=== PATIENT | female | born 1940 | race Caucasian/White ===

== ENCOUNTER → 2017-04-06 12:25 | Outpatient (CLI) | payer MEDICARE, SELFPAY ==
[2017-04-06 14:10] LABS: Alanine Aminotransferase 25 U/L (12-78); Albumin Level 3.9 gm/dL (3.4-5.0); Albumin/Globulin Ratio 1.6 (1.1-1.8); Alkaline Phosphatase 106 U/L (46-116); Anion Gap 10.9 mEq/L (5-15); Aspartate Amino Transferase 16 U/L (15-37); Bilirubin,Total 0.3 mg/dL (0.2-1.0); Blood Urea Nitrogen 15 mg/dL (7-18); Calcium 9.2 mg/dL (8.5-10.1); Carbon Dioxide 31 mmol/L (21.0-32.0); Chloride 105 mmol/L (98-107); Chol/HDL Ratio 2.8 (1-3.5); Cholesterol 138 mg/dL (140-200); Estimated Glomerular Filt Rate 70 ml/min (>60); Free Thyroxine Index 1.7 ug/dL (5.93-13.13); GFR (African American) 85 ML/MIN (>60); Globulin 2.5 gm/dl (1.3-3.2); Glucose 75 mg/dL (74-106); HDL Cholesterol 49 mg/dL (29-89); LDL Cholesterol 74 mg/dL (0-130); Potassium 4.9 mmoL/L (3.5-5.1); Sodium 142 mmol/L (136-145); T4 (Thyroxine) 4.7 ug/dl (4.7-13.3); Thyroid Stimulating Hormone 0.06 uIU/ml (0.358-3.740); Total Protein,Serum 6.4 gm/dL (6.4-8.2); Triglycerides 76 mg/dL (30-200); Triiodothryronine (T3) Uptake 36 % (31-39); VLDL Cholesterol 15 mg/dL (0-40)
[2017-04-06 14:59] LABS: Basophils # 0.1 K/mm3 (0-0.2); Basophils % 0.9 % (0.1-2.0); Eosinophils # 0.3 K/mm3 (0.0-0.4); Eosinophils % 5.9 % (0.1-12.0); Hematocrit 38.9 % (37.0-47.0); Hemoglobin 12.3 g/dL (12.2-16.2); Lymphocytes # 2.7 K/mm3 (0.7-4.5); Lymphocytes % 50.7 K/mm3 (10-50); Mean Corpuscular HGB Conc 31.7 g/dL (31.8-35.4); Mean Corpuscular Hemoglobin 31.2 pg (27.0-31.2); Mean Corpuscular Volume 98.3 fl (81-99); Mean Platelet Volume 8.5 fl (7.4-10.4); Monocytes # 0.4 K/mm3 (0.1-1.0); Monocytes % 6.9 % (1.7-9.3); Neutrophils # 1.9 K/mm3 (1.8-7.8); Neutrophils % 35.6 % (37.0-80.0); Platelet Count 205 K/mm3 (142-424); Red Blood Count 3.96 M/mm3 (4.20-5.40); Red Cell Distribution Width 12.1 % (11.5-17.5); White Blood Count 5.4 K/mm3 (4.8-10.8)
[2017-04-06 15:43] LABS: MANUAL DIFFERENTIAL MANUAL DIFFERENTIAL (MANUAL DIFF)
[2017-04-06 17:14] LABS: Eosinophils % 5 % (0-3); Lymphocytes % 46 % (10-50); Monocytes % 13 % (2-9); Neutrophils % 35 % (42-76); Platelet Estimate Normal; RBC Morphology Normal; Total Cells Counted 100
== END ==
PROVIDERS: PCP Internal Medicine Adolescent Medicine; Visit Provider Internal Medicine Adolescent Medicine
DX: E78.5 Hyperlipidemia, unspecified (principal); E05.90 Thyrotoxicosis, unspecified without thyrotoxic crisis or storm; E04.2 Nontoxic multinodular goiter
CPT/HCPCS: 36415; 80053; 80061; 84436; 84443; 84479; 85007; 85025

== ENCOUNTER → 2017-10-15 08:48 | Outpatient (CLI) | payer MEDICARE, SELFPAY ==
--- NOTE | 2017-10-15 08:50 | NM_ITS ---
NM bone scan whole body CLINICAL INDICATION: Evaluate for Padget disease ITS.REASON: FRONTAL BOSSING ORDERING PHYSICIAN: Hawk Davis MD PATIENT AGE: 77 years DOSE: 25.3 mCi technetium MDP FINDINGS: There is slight increase activity in the upper thoracic spine at the T3 level and in the midthoracic spine 8 level. Increased activity also noted on the right at L3 and L4 and also in the ankles.. Focal increased activity involves the left first metatarsophalangeal joint. No abnormal activity in the skull or pelvis. IMPRESSION: 1. Nonspecific spine activity which could be degenerative. Plain films may be of further value clinically warranted. 2. No abnormal skull or pelvic activity. No findings that would indicate Padget disease.
--- NOTE | 2017-10-15 13:07 | XR_ITS ---
XR skull <4V CLINICAL INDICATION: ITS.REASON: KNOT ON FRONTAL SKULL, HEADACHES, BONE SCAN ALSO TODAY ORDERING PHYSICIAN: Hawk Davis MD PATIENT AGE: 77 years Comparison: None FINDINGS: Normal mineralization. No lytic or blastic lesions. No calcified soft tissue nodules IMPRESSION: Negative skull
== END ==
PROVIDERS: PCP Internal Medicine Adolescent Medicine; Visit Provider Internal Medicine Adolescent Medicine
DX: Q75.8 Other specified congenital malformations of skull and face bones (principal)
CPT/HCPCS: 70250; 78306; A9503

== ENCOUNTER → 2017-10-31 12:13 | Outpatient (CLI) | payer MEDICARE, SELFPAY ==
[2017-10-31 13:17] LABS: Anion Gap 15.1 mEq/L (5-15); Blood Urea Nitrogen 21 mg/dL (7-18); Calcium 8.7 mg/dL (8.5-10.1); Carbon Dioxide 29 mmol/L (21.0-32.0); Chloride 101 mmol/L (98-107); Creatinine,Serum 0.84 mg/dL (0.55-1.02); Estimated Glomerular Filt Rate 66 ml/min (>60); Free Thyroxine Index 1.5 ug/dL (5.93-13.13); GFR (African American) 80 ML/MIN (>60); Glucose 100 mg/dL (74-106); Potassium 4.1 mmoL/L (3.5-5.1); Sodium 141 mmol/L (136-145); T4 (Thyroxine) 4.5 ug/dl (4.7-13.3); Thyroid Stimulating Hormone 0.55 uIU/ml (0.358-3.740); Triiodothryronine (T3) Uptake 33 % (31-39)
== END ==
PROVIDERS: Visit Provider Internal Medicine Adolescent Medicine
DX: E05.90 Thyrotoxicosis, unspecified without thyrotoxic crisis or storm (principal)
CPT/HCPCS: 36415; 80048; 84436; 84443; 84479

== ENCOUNTER → 2017-11-30 09:44 | Outpatient (CLI) | payer MEDICARE, SELFPAY ==
[2017-11-30 10:38] LABS: Basophils % 0.7 % (0.1-2.0); Eosinophils # 0.2 K/mm3 (0.0-0.4); Eosinophils % 3.6 % (0.1-12.0); Hematocrit 37.2 % (37.0-47.0); Hemoglobin 11.7 g/dL (12.2-16.2); Lymphocytes % 41.5 K/mm3 (10-50); Mean Corpuscular HGB Conc 31.5 g/dL (31.8-35.4); Mean Corpuscular Volume 95.4 fl (81-99); Mean Platelet Volume 7.4 fl (7.4-10.4); Monocytes # 0.3 K/mm3 (0.1-1.0); Neutrophils # 2.3 K/mm3 (1.8-7.8); Neutrophils % 47.2 % (37.0-80.0); Platelet Count 309 K/mm3 (142-424); Red Cell Distribution Width 13.4 % (11.5-17.5); White Blood Count 4.9 K/mm3 (4.8-10.8)
[2017-11-30 11:29] LABS: Alanine Aminotransferase 24 U/L (12-78); Albumin Level 3.7 gm/dL (3.4-5.0); Albumin/Globulin Ratio 1.2 (1.1-1.8); Alkaline Phosphatase 104 U/L (46-116); Anion Gap 10.6 mEq/L (5-15); Aspartate Amino Transferase 12 U/L (15-37); Bilirubin,Total 0.2 mg/dL (0.2-1.0); Blood Urea Nitrogen 22 mg/dL (7-18); Calcium 8.7 mg/dL (8.5-10.1); Carbon Dioxide 31 mmol/L (21.0-32.0); Chloride 107 mmol/L (98-107); Chol/HDL Ratio 4.4 (1-3.5); Cholesterol 196 mg/dL (140-200); Creatinine,Serum 0.67 mg/dL (0.55-1.02); Estimated Glomerular Filt Rate 86 ml/min (>60); Free Thyroxine Index 3.1 ug/dL (5.93-13.13); GFR (African American) 104 ML/MIN (>60); Globulin 3.1 gm/dl (1.3-3.2); Glucose 117 mg/dL (74-106); HDL Cholesterol 45 mg/dL (29-89); LDL Cholesterol 129 mg/dL (0-130); Potassium 4.6 mmoL/L (3.5-5.1); Sodium 144 mmol/L (136-145); T4 (Thyroxine) 7.7 ug/dl (4.7-13.3); Thyroid Stimulating Hormone 0.04 uIU/ml (0.358-3.740); Total Protein,Serum 6.8 gm/dL (6.4-8.2); Triglycerides 110 mg/dL (30-200); Triiodothryronine (T3) Uptake 40 % (31-39); VLDL Cholesterol 22 mg/dL (0-40)
== END ==
PROVIDERS: PCP Internal Medicine Adolescent Medicine; Visit Provider Internal Medicine Adolescent Medicine
DX: E78.5 Hyperlipidemia, unspecified (principal); E05.90 Thyrotoxicosis, unspecified without thyrotoxic crisis or storm; E04.2 Nontoxic multinodular goiter
CPT/HCPCS: 36415; 80053; 80061; 84436; 84443; 84479; 85025

== ENCOUNTER → 2017-12-19 15:22 | Outpatient (CLI) | payer MEDICARE, SELFPAY ==
[2017-12-19 15:58] LABS: Basophils % 0.5 % (0.1-2.0); Eosinophils # 0.3 K/mm3 (0.0-0.4); Eosinophils % 4.6 % (0.1-12.0); Hematocrit 34.8 % (37.0-47.0); Hemoglobin 10.9 g/dL (12.2-16.2); Lymphocytes # 2.9 K/mm3 (0.7-4.5); Lymphocytes % 49.1 K/mm3 (10-50); Mean Corpuscular HGB Conc 31.1 g/dL (31.8-35.4); Mean Corpuscular Hemoglobin 29.2 pg (27.0-31.2); Mean Corpuscular Volume 93.8 fl (81-99); Monocytes # 0.3 K/mm3 (0.1-1.0); Monocytes % 5.8 % (1.7-9.3); Neutrophils # 2.4 K/mm3 (1.8-7.8); Platelet Count 250 K/mm3 (142-424); Red Blood Count 3.72 M/mm3 (4.20-5.40); Red Cell Distribution Width 13.3 % (11.5-17.5); White Blood Count 5.9 K/mm3 (4.8-10.8)
[2017-12-19 16:50] LABS: Alanine Aminotransferase 22 U/L (12-78); Albumin Level 3.6 gm/dL (3.4-5.0); Albumin/Globulin Ratio 1.2 (1.1-1.8); Alkaline Phosphatase 110 U/L (46-116); Amylase 80 U/L (25-125); Anion Gap 12.8 mEq/L (5-15); Aspartate Amino Transferase 12 U/L (15-37); Bilirubin,Total 0.2 mg/dL (0.2-1.0); Blood Urea Nitrogen 26 mg/dL (7-18); Calcium 8.9 mg/dL (8.5-10.1); Carbon Dioxide 28 mmol/L (21.0-32.0); Chloride 107 mmol/L (98-107); Creatinine,Serum 0.72 mg/dL (0.55-1.02); Estimated Glomerular Filt Rate 79 ml/min (>60); GFR (African American) 96 ML/MIN (>60); Globulin 2.9 gm/dl (1.3-3.2); Glucose 103 mg/dL (74-106); Lipase 304 u/L (73-393); Potassium 4.8 mmoL/L (3.5-5.1); Sodium 143 mmol/L (136-145); T4 (Thyroxine) 7.8 ug/dl (4.7-13.3); Thyroid Stimulating Hormone 0.02 uIU/ml (0.358-3.740); Total Protein,Serum 6.5 gm/dL (6.4-8.2); Triiodothryronine (T3) Uptake 38 % (31-39)
== END ==
PROVIDERS: PCP Internal Medicine Adolescent Medicine; Visit Provider Internal Medicine Adolescent Medicine
DX: E05.90 Thyrotoxicosis, unspecified without thyrotoxic crisis or storm (principal); R10.10 Upper abdominal pain, unspecified
CPT/HCPCS: 36415; 80053; 82150; 83690; 84436; 84443; 84479; 85025

== ENCOUNTER → 2017-12-27 11:24 | Outpatient (CLI) | payer MEDICARE, SELFPAY ==
[2017-12-27 12:02] LABS: Basophils % 0.5 % (0.1-2.0); Eosinophils # 0.1 K/mm3 (0.0-0.4); Eosinophils % 2.2 % (0.1-12.0); Hemoglobin 10.3 g/dL (12.2-16.2); Lymphocytes # 1.5 K/mm3 (0.7-4.5); Lymphocytes % 38.4 K/mm3 (10-50); Mean Corpuscular HGB Conc 31.2 g/dL (31.8-35.4); Mean Corpuscular Hemoglobin 29.3 pg (27.0-31.2); Mean Corpuscular Volume 93.9 fl (81-99); Mean Platelet Volume 7.8 fl (7.4-10.4); Monocytes # 0.3 K/mm3 (0.1-1.0); Monocytes % 7.3 % (1.7-9.3); Neutrophils % 51.6 % (37.0-80.0); Platelet Count 347 K/mm3 (142-424); Red Blood Count 3.51 M/mm3 (4.20-5.40); Red Cell Distribution Width 13.3 % (11.5-17.5)
== END ==
PROVIDERS: PCP Internal Medicine Adolescent Medicine; Visit Provider Internal Medicine Adolescent Medicine
DX: D64.9 Anemia, unspecified (principal)
CPT/HCPCS: 36415; 85025

== ENCOUNTER → 2018-02-05 10:12 | Outpatient (CLI) | payer MEDICARE, SELFPAY ==
[2018-02-05 10:27] LABS: Basophils % 0.7 % (0.1-2.0); Eosinophils # 0.1 K/mm3 (0.0-0.4); Eosinophils % 0.8 % (0.1-12.0); Lymphocytes # 1.6 K/mm3 (0.7-4.5); Mean Corpuscular HGB Conc 30.2 g/dL (31.8-35.4); Mean Corpuscular Hemoglobin 25.8 pg (27.0-31.2); Mean Corpuscular Volume 85.4 fl (81-99); Mean Platelet Volume 8.8 fl (7.4-10.4); Monocytes # 0.3 K/mm3 (0.1-1.0); Monocytes % 5.3 % (1.7-9.3); Neutrophils % 66.2 % (37.0-80.0); Platelet Count 283 K/mm3 (142-424); Red Blood Count 3.87 M/mm3 (4.20-5.40); Red Cell Distribution Width 15.5 % (11.5-17.5)
[2018-02-05 12:19] LABS: Alanine Aminotransferase 31 U/L (12-78); Albumin Level 4.2 gm/dL (3.4-5.0); Albumin/Globulin Ratio 1.3 (1.1-1.8); Alkaline Phosphatase 94 U/L (46-116); Anion Gap 17.1 mEq/L (5-15); Aspartate Amino Transferase 16 U/L (15-37); Bilirubin,Total 0.4 mg/dL (0.2-1.0); Blood Urea Nitrogen 16 mg/dL (7-18); Calcium 8.9 mg/dL (8.5-10.1); Carbon Dioxide 24 mmol/L (21.0-32.0); Chloride 104 mmol/L (98-107); Creatinine,Serum 0.85 mg/dL (0.55-1.02); Estimated Glomerular Filt Rate 65 ml/min (>60); Free Thyroxine Index 2.7 ug/dL (5.93-13.13); GFR (African American) 79 ML/MIN (>60); Globulin 3.3 gm/dl (1.3-3.2); Glucose 123 mg/dL (74-106); Potassium 4.1 mmoL/L (3.5-5.1); Sodium 141 mmol/L (136-145); T4 (Thyroxine) 7.7 ug/dl (4.7-13.3); Thyroid Stimulating Hormone 0.03 uIU/ml (0.358-3.740); Total Protein,Serum 7.5 gm/dL (6.4-8.2); Triiodothryronine (T3) Uptake 35 % (31-39)
== END ==
PROVIDERS: Visit Provider Internal Medicine Adolescent Medicine
DX: D64.9 Anemia, unspecified (principal); E03.9 Hypothyroidism, unspecified
CPT/HCPCS: 36415; 80053; 84436; 84443; 84479; 85025

== ENCOUNTER → 2018-04-05 10:43 | Outpatient (CLI) | payer MEDICARE, SELFPAY ==
[2018-04-05 12:19] LABS: Basophils % 0.4 % (0.1-2.0); Eosinophils % 0.4 % (0.1-12.0); Hematocrit 33.3 % (37.0-47.0); Hemoglobin 9.9 g/dL (12.2-16.2); Lymphocytes # 1.5 K/mm3 (0.7-4.5); Lymphocytes % 19.7 % (10-50); Mean Corpuscular HGB Conc 29.9 g/dL (31.8-35.4); Mean Corpuscular Hemoglobin 23.3 pg (27.0-31.2); Mean Corpuscular Volume 78.1 fl (81-99); Mean Platelet Volume 7.6 fl (7.4-10.4); Monocytes # 0.4 K/mm3 (0.1-1.0); Monocytes % 5.1 % (1.7-9.3); Neutrophils # 5.6 K/mm3 (1.8-7.8); Neutrophils % 74.4 % (37.0-80.0); Platelet Count 475 K/mm3 (142-424); Red Blood Count 4.26 M/mm3 (4.20-5.40); White Blood Count 7.5 K/mm3 (4.8-10.8)
[2018-04-05 14:36] LABS: Alanine Aminotransferase 32 U/L (12-78); Albumin Level 3.8 gm/dL (3.4-5.0); Albumin/Globulin Ratio 1.2 (1.1-1.8); Alkaline Phosphatase 95 U/L (46-116); Anion Gap 16.9 mEq/L (5-15); Aspartate Amino Transferase 16 U/L (15-37); Bilirubin,Total 0.4 mg/dL (0.2-1.0); Blood Urea Nitrogen 13 mg/dL (7-18); Calcium 8.9 mg/dL (8.5-10.1); Carbon Dioxide 25 mmol/L (21.0-32.0); Chloride 101 mmol/L (98-107); Creatinine,Serum 1.02 mg/dL (0.55-1.02); Estimated Glomerular Filt Rate 53 ml/min (>60); Free Thyroxine Index 2.4 ug/dL (5.93-13.13); GFR (African American) 64 ML/MIN (>60); Globulin 3.2 gm/dl (1.3-3.2); Glucose 91 mg/dL (74-106); Potassium 3.9 mmoL/L (3.5-5.1); Sodium 139 mmol/L (136-145); T4 (Thyroxine) 6.6 ug/dl (4.7-13.3); Thyroid Stimulating Hormone 0.11 uIU/ml (0.358-3.740); Triiodothryronine (T3) Uptake 37 % (31-39)
[2018-04-06 12:35] LABS: Folate >20.0 ng/mL (>3.0); Vitamin B12 869 pg/mL (232-1245)
== END ==
PROVIDERS: Visit Provider Internal Medicine Adolescent Medicine
DX: D64.9 Anemia, unspecified (principal); E05.90 Thyrotoxicosis, unspecified without thyrotoxic crisis or storm
CPT/HCPCS: 36415; 80053; 82607; 82746; 84436; 84443; 84479; 85025

== ENCOUNTER → 2018-04-17 07:16 | Outpatient (CLI) | payer MEDICARE, SELFPAY ==
--- NOTE | 2018-04-17 | CA_ITS ---
PROCEDURE: 2-D M-mode and color Doppler study INDICATIONS FOR THE TEST: Chest pain COPD Heart Murmur Tobacco Smoking Palpitations+ Fatigue Syncope Edema Hypertension+Diabetes Mellitus Rheumatic Fever SOB SO+Obesity Hyperlipidemia+ Family History HD Additional History PATIENT INFORMATION HEIGHT: 67 WEIGHT:175 GENDER: Female B/P:134/82 2-D/M-MODE INTERPRETATION: 2-D MEASUREMENTS OBSERVED VALUES IN CMS Right Ventricular Dimension (RVDd) 2.5 Interventricular Septum (Thickness)(IVsd) 0.9 Left Ventricular Internal Dimensions(LVIDd) 4.4 Left Ventricular Posterior Wall (Thickness)(LVPWd) 0.8 Aortic Root 2.7 Aortic Cusp Separation 2.0 Left Atrial Dimensions (LAD) 3.7 2D 1. Left atrium is mildly enlarged, left ventricle is normal size, mild qualitative concentric left ventricular hypertrophy, visually estimated ejection fraction 55% with no regional wall motion abnormality. 2. The right atrium and right ventricle are normal size and contractility. 3. The aortic valve is thickened and calcified leaflet continue to display mobility. 4. The mitral valve has dense mitral calcification, mitral valve leaflets are minimally thickened. 5. The tricuspid valve is grossly normal. 6. The pulmonic valve is poorly visualized. 7. No significant pericardial effusion noted. DOPPLER INTERROGATION: Doppler interrogation of the aortic, mitral and tricuspid valvular presence of mild mitral, moderate aortic and mild tricuspid regurgitation, tricuspid regurgitation jet velocity is inadequate for calculation of the right ventricular systolic pressure, grade 1 diastolic dysfunction seen without tissue Doppler evidence of raised left atrial pressure. CONCLUSION: 1. Mildly enlarged left atrium, normal left ventricular size, mild concentric left ventricular hypertrophy, visually estimated ejection fraction 55% with no regional wall motion abnormality, grade 1 diastolic dysfunction seen without tissue Doppler evidence of raised left atrial pressure. 2. Thickened and calcified aortic valve without aortic stenosis, there is moderate aortic insufficiency. 3. Mild mitral and tricuspid regurgitation 4. No significant pericardial effusion noted.
--- NOTE | 2018-04-17 07:19 | NM_ITS ---
History and Indications: Hypertension, hyperlipidemia, shortness of breath and abnormal EKG. Procedure: Patient exercised on Carl protocol 5 minutes, resting heart rate was 81 bpm resting blood pressure 138/75, with exercise maximum heart rate achieved was 1 52 bpm which is greater than 85% of the maximum predicted heart rate and a blood pressure was 210/88. Test was started due to fatigue and shortness of breath patient denied any complained of chest pain. Patient has adequate exercise capacity achieved 7mets of workload on treadmill, the blood pressure response to exercise was hypertensive. Electrocardiogram: Resting electrocardiogram showed sinus rhythm, with exercise there is less than 1.[address] segment depression noted from the baseline EKG. The EKG portion of the exercise Myoview is negative for ischemia. Cardiac stress and resting SPECT images: Cardiac stress and resting SPECT images were obtained using technetium 99 Myoview 32.0 mCi stress and 10.7 mCi at rest, gated SPECT further analysis of segmental wall motion and calculation of the ejection fraction also done. Cardiac stress and the suspect show uniform myocardial activity without segmental perfusion abnormality, computer derived ejection fraction is over 65% with no regional wall motion abnormality, right ventricle is normal size and contractility. Conclusion: 1. The EKG portion of the exercise Myoview is negative for ischemia, patient has adequate exercise capacity achieved 7mets of workload on treadmill, the blood pressure response to exercise was hypertensive, there was no exercise-induced chest discomfort. 2. No scintigraphic evidence of reversible ischemia seen, computer derived ejection fraction is over 65% with no regional wall motion abnormality, right ventricle is normal size and contractility. 3. Normal exercise Myoview study. Except for hypertensive blood pressure response.
--- NOTE | 2018-04-17 07:32 | HMH.ITSHM ---
Current Home Medications as stated by this patient Lucille Campuzano or sales service representative. []CARVEDILOL ESCITALOPRAM BACLOFEN OMEPRAZOLE ASA RIZATRIPTAN SIMVASTATIN
== END ==
PROVIDERS: PCP Internal Medicine Adolescent Medicine; Visit Provider Internal Medicine Adolescent Medicine
DX: R06.02 Shortness of breath (principal); R94.01 Abnormal electroencephalogram [EEG]; I10 Essential (primary) hypertension
CPT/HCPCS: 78451; 93017; 93306; A9502

== ENCOUNTER → 2018-05-15 09:44 | Outpatient (CLI) | payer MEDICARE, SELFPAY ==
[2018-05-15 10:55] VITALS: PULSE 81; PULSE 85
== END ==
PROVIDERS: PCP Internal Medicine Adolescent Medicine; Visit Provider Internal Medicine Adolescent Medicine
DX: R00.2 Palpitations (principal); R06.09 Other forms of dyspnea
CPT/HCPCS: 93225; 93226; 94060; 94640; 94726; 94729

== ENCOUNTER 2018-07-05 15:25 | Observation (INO) ==
--- NOTE | 2018-07-05 15:56 | Emergency Department Note ---
ED Disposition Clinical Impression: Altered mental status Qualifiers: Altered mental status type: disorientation Qualified Code(s): R41.0 - Disorientation, unspecified Disposition: Admitted as Observation Condition on Discharge: Fair Referrals: Provider,Referral, [Referring] - - Critical Care Critical Care Time: No Attestation: On , the high probability of a clinically significant, sudden or life threatening deterioration of the following system(s) required my full and direct attention, intervention and personal management. The time I documented below is in addition to time spent performing reported procedures but includes the following listed in this critical care notation. Medical Decision Making - Adiel Inquiry Pt receiving controlled substance: No Vital Signs: 07/05/18 15:26 07/05/18 15:47 07/05/18 16:26 Temperature 97.7 F Temperature Source Oral Pulse Rate [Right Radial] 84 77 76 Respiratory Rate 18 Blood Pressure [Right Arm] 156/86 H 149/66 H 168/85 H Blood Pressure Mean [Right Arm] 109 93 112 Blood Pressure Source [Right Arm] Automatic Cuff Blood Pressure Position [Right Arm] Sitting 02 Sat by Pulse Oximetry 99 99 Oxygen Delivery Method Room Air 07/05/18 16:30 07/05/18 17:00 07/05/18 17:25 Temperature Temperature Source Pulse Rate [Right Radial] 75 80 75 Respiratory Rate Blood Pressure [Right Arm] 152/72 H 152/72 H 156/79 H Blood Pressure Mean [Right Arm] 98 98 104 Blood Pressure Source [Right Arm] Blood Pressure Position [Right Arm] 02 Sat by Pulse Oximetry 98 97 96 Oxygen Delivery Method - Lab Data Lab Results 07/05/18 15:45: WBC 8.7, RBC 4.01 L, Hgb 9.3 L, Hct 30.7 L, MCV 76.5 L, MCH 23.1 L, MCHC 30.3 L, RDW 16.6, Plt Count 257, MPV 7.9, Neut % (Auto) 82.8 H, Lymph % (Auto) 13.7, [place]ison % (Auto) 3.3, Eos % (Auto) 0.1, Baso % (Auto) 0.1, Neut # (Auto) 7.2, Lymph # (Auto) 1.2, Addison # (Auto) 0.3, Eos # (Auto) 0.0, Baso # (Auto) 0.0 07/05/18 15:45: Sodium 139, Potassium 3.7, Chloride 105, Carbon Dioxide 22, Anion Gap 15.7 H, BUN 19 H, Creatinine 0.81, Estimated Creat Clear 61, Estimated GFR 69, Est GFR ( Amer) 83, Glucose 110 H, Calcium 9.1, Total Bilirubin 0.4, AST 17, ALT 26, Alkaline Phosphatase 97, Troponin I < 0.02, Total Protein 7.4, Albumin 4.0, Globulin 3.4 H, Albumin/Globulin Ratio 1.2, Salicylates 1.0 L, Acetaminophen 0 L, Plasma/Serum Alcohol 0 07/05/18 15:45: TSH 0.12 L, Free T4 Index 2.1 L, Thyroxine (T4) 6.0, T3 Uptake 35 07/05/18 16:41: Urine Color [place], Urine Appearance Sl cloudy, Urine pH 6.0, Ur Specific [place] 1.025, Urine Protein 1+, Urine Glucose (UA) Negative, Urine Ketones 2+, Urine Blood Trace-i, Urine Nitrate Negative, Urine Bilirubin Negative, Urine Urobilinogen 1.0, Ur Leukocyte Esterase 1+ A, Urine RBC Occasional, Urine WBC 3-5, Ur Squamous Epith Cells Occasional, Urine Bacteria 1+ 07/05/18 16:41: Urine Opiates Screen Positive H, Urine Methadone Screen Negativ e, Ur Barbituates Screen Negative, Ur Phencyclidine Scrn Negative, Ur Amphetamines Screen Negative, U Benzodiazepines Scrn Positive H, Urine Cocaine Screen Negative, U Marijuana (THC) Screen Positive H Result diagrams: 07/05/18 15:45 07/05/18 15:45 Orders (Tests/Meds): ORDERS Category Date Time Status XR chest portable Stat Exams 07/05/18 15:51 Taken Urine Culture Stat Micro 07/05/18 16:41 Received - Radiology Data #1 Image(s): Chest Image Reviewed: Yes I reviewed the patient's radiology image Preliminary Findings: Normal/NAD - CT Data CT Scan: Head Time Received: 17:[address] Reviewed: Yes: I have viewed the radiologist's interpretation Findings Narrative: -------IMPRESSION: No acute findings. No hemorrhage. No mass lesion nor extra-axial collection Cerebral atrophy, more evident the left cerebral hemisphere than right. Atrophy Particular evident toward frontal lobes & about the left sylvian fissure Suggestion of is minimal progression cerebral atrophy since 08/26/2015 Dictated By: Regan Xavier Signed By: <Electronically signed by Regan Xavier in [place]> 07/05/18 9445 - ECG Data Tracing #1 EKG interpreted by Mohinder Oviedo MD: Rhythm: sinus Rate: 77 [place]: normal Ectopy: none Conduction: QTc interval [address] Segment Changes: none T Wave Changes: none Q Waves: none No evidence of acute ischemia or injury - Physician Consults Physician Consulted: Susan Time: 15:45 Reason -: Pt condition Comment/Response: He is familiar with the patient and her past history of these types of episodes. He says that he saw her 2 weeks ago when she was lucid. There is a daughter who suspects that the patient forwards her medications and takes them in excess at times. Additional Consult: Susan Time: 17:31 Reason -: Admission Comment/Response: Agrees to admit the patient to the hospital. We discussed the patient's clinical information, including history, exam, laboratory and radiology results and ED course. Per hospital procedure, I will write temporary bridge inpatient orders on the patient. Specific orders requested by the admit [facility] physician: Observation - Reevaluation(s) Time: 17:30 Reevaluation #1: Patient is also very drowsy now. She does awaken and answers questions. I suspect medication use as the cause for her symptoms. Discussed tox screen results with her son. He is not aware that she has ever used marijuana. She denies marijuana use. General Adult HPI - General Chief complaint: Altered Mental Status Stated complaint: confusion Time Seen by Provider: 07/05/18 15:26 Mode of Arrival: EMS Limitations: Altered Mental Status Description of Symptoms (Recalled from ER Triage Doc. by RN): Pt arrived per EMS, EMS reports pt was on her neighbors porch with the police department upon their arrival. Police reported to EMS that pt was outside, removed her bottoms and was attempting to get into her neighbors car, her neighbor called the police per EMS report. when asked about what happened pt states she did not remove any clothing, unable to recall why she was attempting to get into her neighbors car but can recollect that she was attempting to get into her car. - History of Present Illness HPI narrative: Brought in by ambulance for confusion. The patient was reportedly trying to get into her neighbor's car and had taken her pants off. Neighbor called 911. She was found sitting cross ligated in the yard in the rain. She is not able to tell me why she was trying to get into a neighbor's car, although she says that she knows why. She complains of feeling anxious, denies any other complaints. Denies any alcohol intake. Patient states that her is currently at work at [employer] in [place]. The patient's has actually . She does note that her son is a accounts supervisor here in [place]. - Related Data Home Medications Medication Instructions Recorded Confirmed ALPRAZolam [Xanax 1mg tab] 1 mg PO TID 07/05/18 07/05/18 Baclofen 20 mg PO TID 07/05/18 07/05/18 Carvedilol [Coreg 25mg Tablet] 25 mg PO BID 07/05/18 07/05/18 Escitalopram Oxalate [Lexapro] 20 mg PO DAILY 07/05/18 07/05/18 Omeprazole [Omeprazole 20mg 20 mg PO BID 07/05/18 07/05/18 Capsule] Oxycodone HCl/Acetaminophen 1 tab PO Q6H PRN 07/05/18 07/05/18 [Percocet 10-325 mg Tablet] Quetiapine Fumarate [Seroquel] 200 mg PO HS 07/05/18 07/05/18 Simvastatin [Zocor] 40 mg PO HS 07/05/18 07/05/18 Allergies Allergy/AdvReac Type Severity Reaction Status Date / Time haloperidol [From HALDOL] Allergy Unknown Unverified 03/06/17 15:30 [facility] History - Hepatitis A Screen Drug use history?: No High risk sexual behaviors?: No History of sexually transmitted infection?: No Currently employed?: No Childcare worker?: No Do you have indoor plumbing?: Yes Do you have electricity?: Yes Attestation statement:: This patient has been screened for Hepatitis A risk factors. I have reviewed the patient's past medical history: Yes Medical History: Denies:: Diabetes Mellitus Type 1, Diabetes Mellitus Type 2 - Social History Alcohol Intake: current Alcohol Intake Frequency:: holidays/special occasions only Occupational Status: retired - Psychiatric History Expresses thoughts of harming self/others: None Suicide Plan Description: No Plan ROS Obtained: Yes All systems reviewed & no additional complaints - Constitutional Constitutional: Denies fever(s) - Eyes Eyes: Denies change in vision - Cardiovascular Cardiovascular: Denies chest pain - Respiratory Respiratory: No cough, No dyspnea - Gastrointestinal Gastrointestingal: Denies: abdominal pain, diarrhea, vomiting - Genitourinary Female Genitourinary: Denies difficulty voiding - Musculoskeletal Musculoskeletal: Denies back pain, Denies neck pain - Neurologic Neurologic: Denies headache(s), Denies numbness, Denies weakness Physical Exam - General General appearance: alert, in no apparent distress - Head Head exam: atraumatic, normocephalic - Eye Eye exam: Present: normal appearance, PERRL, EOMI - ENT ENT exam: Present: normal oropharynx, mucous membranes moist, TM's normal bilaterally - Neck Neck exam: Present: normal inspection, full ROM, trachea midline. Absent: meningismus - Chest Chest inspection: Present: normal inspection, symmetric chest wall rise - Respiratory Respiratory exam: Present: normal lung sounds bilaterally. Absent: respiratory distress - Cardiovascular Cardiovascular exam: Present: regular rate, normal rhythm, normal heart sounds - Abdominal Exam Abdominal exam: Present: soft. Absent: distention, tenderness, guarding, rebound, rigidity - Extremities Exam Extremities exam: Present: normal inspection, full ROM. Absent: tenderness - Neurological Exam Neurological exam: Present: alert, CN II-XII intact, other (Oriented to person. States place is [facility]. Not oriented to day, month, year.). Absent: motor sensory deficit - Psychiatric Psychiatric exam: Present: anxious - Skin Skin exam: Present: warm, dry, pallor
[2018-07-05 16:07] LABS: Basophils % 0.1 % (0.1-2.0); Eosinophils % 0.1 % (0.1-12.0); Hematocrit 30.7 % (37.0-47.0); Hemoglobin 9.3 g/dL (12.2-16.2); Lymphocytes # 1.2 K/mm3 (0.7-4.5); Lymphocytes % 13.7 % (10-50); Mean Corpuscular HGB Conc 30.3 g/dL (31.8-35.4); Mean Corpuscular Hemoglobin 23.1 pg (27.0-31.2); Mean Corpuscular Volume 76.5 fl (81-99); Mean Platelet Volume 7.9 fl (7.4-10.4); Monocytes # 0.3 K/mm3 (0.1-1.0); Monocytes % 3.3 % (1.7-9.3); Neutrophils # 7.2 K/mm3 (1.8-7.8); Neutrophils % 82.8 % (37.0-80.0); Platelet Count 257 K/mm3 (142-424); Red Blood Count 4.01 M/mm3 (4.20-5.40); Red Cell Distribution Width 16.6 % (11.5-17.5); White Blood Count 8.7 K/mm3 (4.8-10.8)
[2018-07-05 16:21] LABS: Free Thyroxine Index 2.1 ug/dL (5.93-13.13); Thyroid Stimulating Hormone 0.12 uIU/ml (0.358-3.740)
[2018-07-05 16:27] LABS: Alanine Aminotransferase 26 U/L (12-78); Albumin/Globulin Ratio 1.2 (1.1-1.8); Alkaline Phosphatase 97 U/L (46-116); Anion Gap 15.7 mEq/L (5-15); Aspartate Amino Transferase 17 U/L (15-37); Bilirubin,Total 0.4 mg/dL (0.2-1.0); Blood Urea Nitrogen 19 mg/dL (7-18); Calcium 9.1 mg/dL (8.5-10.1); Carbon Dioxide 22 mmol/L (21.0-32.0); Chloride 105 mmol/L (98-107); Globulin 3.4 gm/dl (1.3-3.2); Glucose 110 mg/dL (74-106); Potassium 3.7 mmoL/L (3.5-5.1); Sodium 139 mmol/L (136-145); Total Protein,Serum 7.4 gm/dL (6.4-8.2)
[2018-07-05 16:28] LABS: Ethyl Alcohol 0 mg/dL (0-99)
[2018-07-05 16:29] LABS: Acetaminophen 0 ug/mL (10-30)
[2018-07-05 16:51] LABS: Microscopic, Urine URINE MICROSCOPIC (MICROSCOPIC)
[2018-07-05 16:57] LABS: Appearance,Urine SL CLOUDY (Clear); Blood, Urine TRACE-I (Negative); Color,Urine ORANGE (Yellow); Glucose,Urine (UA) Negative (Negative); Ketones,Urine 2+ (Negative); Leukocyte Esterase,Urine 1+ (Negative); Protein,Urine 1+ (Negative); Specific Gravity, Urine 1.025 (1.005-1.030)
[2018-07-05 17:07] LABS: Bilirubin,Urine Negative (Negative)
[2018-07-05 17:11] LABS: Amphetamine/Metha Screen,Urine Negative ng/mL (<1000); Barbiturates Screen,Urine Negative ng/mL (<200); Benzodiazepines Screen,Urine Positive ng/mL (<200); Cannabinoid Screen,Urine Positive ng/mL (<50); Cocaine Screen,Urine Negative ng/mL (<300); Methadone Screen,Urine Negative ng/mL (<300); Opiate Screen,Urine Positive ng/mL (<300); Phencyclidine Screen,Urine Negative ng/mL (<25)
[2018-07-05 17:18] LABS: Bacteria,Urine 1+ /lpf; RBC,Urine Occasional #/hpf (0-3); Squamous Epithelial Cell,Urine Occasional #/hpf (0-5)
[2018-07-06 07:55] LABS: Basophils % 0.6 % (0.1-2.0); Eosinophils % 0.1 % (0.1-12.0); Hematocrit 29.5 % (37.0-47.0); Hemoglobin 8.6 g/dL (12.2-16.2); Lymphocytes # 1.7 K/mm3 (0.7-4.5); Lymphocytes % 32.1 % (10-50); Mean Corpuscular HGB Conc 29.1 g/dL (31.8-35.4); Mean Corpuscular Hemoglobin 22.2 pg (27.0-31.2); Mean Corpuscular Volume 76.3 fl (81-99); Mean Platelet Volume 10.4 fl (7.4-10.4); Monocytes # 0.4 K/mm3 (0.1-1.0); Monocytes % 7.9 % (1.7-9.3); Neutrophils # 3.1 K/mm3 (1.8-7.8); Neutrophils % 59.3 % (37.0-80.0); Platelet Count 224 K/mm3 (142-424); Red Blood Count 3.87 M/mm3 (4.20-5.40); Red Cell Distribution Width 16.8 % (11.5-17.5); White Blood Count 5.3 K/mm3 (4.8-10.8)
[2018-07-06 07:59] LABS: Anion Gap 14.6 mEq/L (5-15); Calcium 8.8 mg/dL (8.5-10.1); Potassium 3.6 mmoL/L (3.5-5.1)
--- NOTE | 2018-07-06 08:22 | History & Physical Report ---
*Admission Date: 07/06/18 *Chief complaint: Confusion/disorientation *History of present illness: 77-year-old white female with history of major depression, PTSD from significant events in her remote past, chronic anxiety issue and chronic use of opiate pain medications and benzodiazepines who yesterday had the delusion that 1 of her neighbors had asked her to watch a car in the adjoining driveway to her home. She was outside of her home, partially dressed, and realize she locked herself out while trying to "watch the neighbor's car." She began banging on the door of her house hoping that her mother- since 1996, and her , since 2006, would open the door. After several minutes of being locked out she then went to the neighbor's car to try to get in the car and the neighbor-who had never met the patient before and had certainly never asked her to "watch the car" found her as they were leaving to go pick their child up from school yesterday afternoon. Law enforcement was called and they brought her to the emergency department. She was found to be confused but was able to somewhat clear over the next couple of hours of evaluation. CT scan was nondiagnostic, initial laboratory studies other than very mild hypokalemia were unremarkable. Patient did improve slightly but was admitted overnight for further diagnostic testing and evaluation of mental status. [facility] History I have reviewed the patient's past medical history: Yes Medical History: Reports:: Hypertension Denies:: Diabetes Mellitus Type 1, Diabetes Mellitus Type 2 *Have you ever received a pneumonia vaccine?: Yes *Have you received a flu vaccine this season?: Yes Other Medical History: Reports: Anemia, Hypothyroidism, Thyroid Disease Comment:: Patient has a history of episodes of disorientation in the past, improved with cessation of Ambien and other medications Other Surgeries: Yes: Other (Multiple back/lumbar fusion procedures) - *Social History Educational Level: Completed College Smoking Status: Never smoker Alcohol Intake: never Alcohol Intake Frequency:: holidays/special occasions only Substance Use Type: denies use *Occupational Status:: retired Household Members: none (Supportive family, son lives in [facility], daughter in [place]) *Travel in the last 8 weeks: None - Psychiatric History Expresses thoughts of harming self/others: None Suicide Plan Description: No Plan Pschychiatric History:: Reports:: Anxiety, Depression, Post Traumatic Stress Disorder Family Hx:: No significant family history Review of Systems - Review of Systems Review of systems:: pertinent systems reviewed and negative unless documented below Patient is verbal and articulate this morning. Is partially oriented, but review of systems is able to be obtained. Denies double vision, dysarthria or tingling in arms or legs. Does report a mild headache. Denies chest pain, shortness of air, denies GI complaints. Denies complaints. Denies musculoskeletal complaints or rash. - *Neurologic Denies headache(s), Denies numbness, Denies weakness Meds Home Medications Medication Instructions Recorded Confirmed Type ALPRAZolam [Xanax 1mg tab] 1 mg PO TID 07/05/18 07/05/18 History Baclofen 20 mg PO TID 07/05/18 07/05/18 History Carvedilol [Coreg 25mg Tablet] 25 mg PO BID 07/05/18 07/05/18 History Escitalopram Oxalate [Lexapro] 20 mg PO DAILY 07/05/18 07/05/18 History Omeprazole [Omeprazole 20mg 20 mg PO BID 07/05/18 07/05/18 History Capsule] Oxycodone HCl/Acetaminophen 1 tab PO Q6H PRN 07/05/18 07/05/18 History [Percocet 10-325 mg Tablet] Quetiapine Fumarate [Seroquel] 200 mg PO HS 07/05/18 07/05/18 History Simvastatin [Zocor] 40 mg PO HS 07/05/18 07/05/18 History Allergies Allergy/AdvReac Type Severity Reaction Status Date / Time haloperidol [From HALDOL] Allergy Unknown Unverified 03/06/17 15:30 Exam Vital signs and Labs for Last 24 Hours: Temp Pulse Resp BP Pulse Ox 97.7 F 86 20 140/77 98 07/06/18 04:00 07/06/18 04:00 07/06/18 04:00 07/06/18 04:00 07/06/18 04:00 Laboratory Results - last 24 hr 07/05/18 15:45: WBC 8.7, RBC 4.01 L, Hgb 9.3 L, Hct 30.7 L, MCV 76.5 L, MCH 23.1 L, MCHC 30.3 L, RDW 16.6, Plt Count 257, MPV 7.9, Neut % (Auto) 82.8 H, Lymph % (Auto) 13.7, [place] % (Auto) 3.3, Eos % (Auto) 0.1, Baso % (Auto) 0.1, Neut # (Auto) 7.2, Lymph # (Auto) 1.2, [place] # (Auto) 0.3, Eos # (Auto) 0.0, Baso # (Auto) 0.0 07/05/18 15:45: Sodium 139, Potassium 3.7, Chloride 105, Carbon Dioxide 22, Anion Gap 15.7 H, BUN 19 H, Creatinine 0.81, Estimated Creat Clear 61, Estimated GFR 69, Est GFR ( Amer) 83, Glucose 110 H, Calcium 9.1, Total Bilirubin 0.4, AST 17, ALT 26, Alkaline Phosphatase 97, Troponin I < 0.02, Total Protein 7.4, Albumin 4.0, Globulin 3.4 H, Albumin/Globulin Ratio 1.2, Salicylates 1.0 L, Acetaminophen 0 L, Plasma/Serum Alcohol 0 07/05/18 15:45: TSH 0.12 L, Free T4 Index 2.1 L, Thyroxine (T4) 6.0, T3 Uptake 35 07/05/18 16:41: Urine Color [place], Urine Appearance Sl cloudy, Urine pH 6.0, Ur Specific [place] 1.025, Urine Protein 1+, Urine Glucose (UA) Negative, Urine Ketones 2+, Urine Blood Trace-i, Urine Nitrate Negative, Urine Bilirubin Negative, Urine Urobilinogen 1.0, Ur Leukocyte Esterase 1+ A, Urine RBC Occasional, Urine WBC 3-5, Ur Squamous Epith Cells Occasional, Urine Bacteria 1+ 07/05/18 16:41: Urine Opiates Screen Positive H, Urine Methadone Screen Negative, Ur Barbituates Screen Negative, Ur Phencyclidine Scrn Negative, Ur Amphetamines Screen Negative, U Benzodiazepines Scrn Positive H, Urine Cocaine Screen Negative, U Marijuana (THC) Screen Positive H 07/06/18 07:45: WBC 5.3 D, RBC 3.87 L, Hgb 8.6 L, Hct 29.5 L, MCV 76.3 L, MCH 22.2 L, MCHC 29.1 L, RDW 16.8, Plt Count 224, MPV 10.4, Neut % (Auto) 59.3, Lymph % (Auto) 32.1, [place] % (Auto) 7.9, Eos % (Auto) 0.1, Baso % (Auto) 0.6, Neut # (Auto) 3.1, Lymph # (Auto) 1.7, [place] # (Auto) 0.4, Eos # (Auto) 0.0, Baso # (Auto) 0.0 07/06/18 07:45: Sodium 142, Potassium 3.6, Chloride 105, Carbon Dioxide 26, Anion Gap 14.6, BUN 15, Creatinine 0.67, Estimated Creat Clear 59, Estimated GFR 86, Est GFR ( Amer) 104 D, Glucose 129 H, Calcium 8.8 I & O for Last 24 hours: Intake & Output 07/03/18 07/04/18 07/05/18 07/06/18 11:59 11:59 11:59 11:59 Weight 170 lb 1 oz Microbiology Reports for the Last 24 Hours: Microbiology 07/05/18 16:41 Urine,Clean Catch Urine Culture - Preliminary Narrative: Patient is awake, has eaten part of her breakfast. I examined the patient this morning and questioned her with her son present. Patient's ENT exam reveals fairly dilated pupils over her baseline but they are reactive and equal bilaterally. Other cranial nerves are unremarkable. Oropharynx is clear without evidence of trauma, moist. Lungs are clear, well-expanded. Heart rate regular without murmurs. Abdomen soft and nontender. She has no edema. She has no evidence of trauma with bruising, has a very small scratch on the anterior aspect of the right knee and another very small scratch- superficial on the left forearm. She has a red slightly indurated area of about 5 cm x 4 cm, irregularly-shaped on the lateral aspect of the right forearm. No evidence of bruising or other trauma or areas of trauma in the antecubital fossa bilaterally. Strength and coordination are normal in her extremities. Power is normal in her extremities. Cerebellar signs are absent. Psychiatric exam reveals that she is oriented to the day of the week and the date but not to the year. She identifies her age is 38 and she identifies her son as her . Assessment and Plan (1) Chronic use of opiate drug for therapeutic purpose Current visit: Yes Status: Acute Category: Medical Code(s): Z79.891 - longterm (current) use of opiate analgesic This could certainly play a role in her altered mental status. Obviously I do not want her to go into withdrawal or suffer pain. We will adjust dose downward to 7.5 mg but continue the medication. She has been on concomitant benzodiazepines. She states that she only takes these rarely, however she has been filling them on a regular basis. I am concerned that she may have been bundling some of the medications inapp ropriately. We will use benzodiazepines in a lower dose and for as needed anxiety only. (2) Recurrent depression Current visit: Yes Status: Acute Category: Medical Code(s): F33.9 - Major depressive disorder, recurrent, unspecified Possible etiology of this episode of psychosis. Hold Lexapro for now. I am unsure if she is been compliant with the medication. (3) Hallucinations Current visit: Yes Status: Acute Category: Medical Code(s): R44.3 - Hallucinations, unspecified Hallucination of the neighbor discussing the car care is concerning. MRI will be needed. Could be a consequence of psychosis/depression as above. (4) Hypokalemia Current visit: Yes Status: Acute Category: Medical Code(s): E87.6 - Hypokalemia Monitor carefully and replace (5) Hyperthyroidism Current visit: Yes Status: Acute Category: Medical Code(s): E05.90 - Thyrotoxicosis, unspecified without thyrotoxic crisis or storm Previous mental status changes were thought to be an episode of thyrotoxicosis from Graves' disease. This does not seem likely at this point. Monitor carefully. (6) Altered mental status Current visit: Yes Status: Acute Qualifiers: Altered mental status type: disorientation Qualified Code(s): R41.0 - Disorientation, unspecified Category: Medical Code(s): R41.82 - Altered mental status, unspecified See discussion above, may need psychiatric/neurologic evaluation of the future (7) Anemia Current visit: Yes Status: Acute Category: Medical Code(s): D64.9 - Anemia, unspecified I have previously worked this up with iron studies, B12 and folate. We will do this again. Check stool guaiacs. Currently uncertain etiology of anemia --patient has had colonoscopies and EGDs in the past
--- NOTE | 2018-07-06 14:11 | Pharmacy Consult Notes ---
[facility] Pharmacy VTE Monitoring - Patient Demographics Admission date: 07/05/18 Report Date: 07/06/18 Time: 14:11 Allergies/Adverse Reactions: Patient Allergies haloperidol [From HALDOL] Allergy (Unknown, Unverified 03/06/17 15:30) Height: 1.7 m Weight: 77.139 kg Patient Problems: Current Active Problems (Updated 07/06/18 @ 08:30 by Hawk Davis MD) Altered mental status (Acute) Chronic use of opiate drug for therapeutic purpose (Acute) Recurrent depression (Acute) Hallucinations (Acute) Hypokalemia (Acute) Hyperthyroidism (Acute) Anemia (Acute) - VTE Risk Labs: VTE Related Lab Results Hgb 8.6 g/dL (12.2-16.2) L 07/06/18 07:45 Hct 29.5 % (37.0-47.0) L 07/06/18 07:45 Plt Count 224 K/mm3 (142-424) 07/06/18 07:45 BUN 15 mg/dL (7-18) 07/06/18 07:45 Creatinine 0.67 mg/dL (0.55-1.02) 07/06/18 07:45 Estimated Creat Clear 59 mL/min (50-200) 07/06/18 07:45 - Prophylaxis VTE Prophylaxis Ordered?: Yes Types of VTE Prophylaxis: TEDS Knee High Location of Applied Device: Bilateral Lower Extremeties
[2018-07-07 06:55] LABS: Basophils # 0.1 K/mm3 (0-0.2); Eosinophils % 0.3 % (0.1-12.0); Hematocrit 30.7 % (37.0-47.0); Hemoglobin 9.4 g/dL (12.2-16.2); Lymphocytes # 2.4 K/mm3 (0.7-4.5); Lymphocytes % 50.2 % (10-50); Mean Corpuscular HGB Conc 30.7 g/dL (31.8-35.4); Mean Corpuscular Hemoglobin 23.1 pg (27.0-31.2); Mean Corpuscular Volume 75.3 fl (81-99); Mean Platelet Volume 9.7 fl (7.4-10.4); Monocytes # 0.4 K/mm3 (0.1-1.0); Monocytes % 7.2 % (1.7-9.3); Neutrophils % 41.2 % (37.0-80.0); Platelet Count 219 K/mm3 (142-424); Red Blood Count 4.08 M/mm3 (4.20-5.40); Red Cell Distribution Width 16.8 % (11.5-17.5); White Blood Count 4.8 K/mm3 (4.8-10.8)
[2018-07-07 07:16] LABS: Albumin Level 3.9 gm/dL (3.4-5.0); Albumin/Globulin Ratio 1.3 (1.1-1.8); Anion Gap 13.1 mEq/L (5-15); Bilirubin,Total 0.4 mg/dL (0.2-1.0); Calcium 8.7 mg/dL (8.5-10.1); Globulin 3.1 gm/dl (1.3-3.2); Potassium 3.1 mmoL/L (3.5-5.1)
[2018-07-07 07:23] LABS: Anisocytosis 1+; Hypochromasia 2+; Lymphocytes % 52 % (10-50); Neutrophils % 48 % (42-76); Polychromasia 1+; Total Cells Counted 100
--- NOTE | 2018-07-07 08:44 | Discharge Summary ---
General - General Admission date:: 07/05/18 Discharge date: 07/07/18 HPI HPI: 77-year-old white female with history of major depression, PTSD from significant events in her remote past, chronic anxiety issue and chronic use of opiate pain medications and benzodiazepines who yesterday had the delusion that 1 of her neighbors had asked her to watch a car in the adjoining driveway to her home. She was outside of her home, partially dressed, and realize she locked herself out while trying to "watch the neighbor's car." She began banging on the door of her house hoping that her mother- since 1996, and her , since 2006, would open the door. After several minutes of being locked out she then went to the neighbor's car to try to get in the car and the neighbor-who had never met the patient before and had certainly never asked her to "watch the car" found her as they were leaving to go pick their child up from school yesterday afternoon. Law enforcement was called and they brought her to the emergency department. She was found to be confused but was able to somewhat clear over the next couple of hours of evaluation. CT scan was nondiagnostic, initial laboratory studies other than very mild hypokalemia were unremarkable. Patient did improve slightly but was admitted overnight for further diagnostic testing and evaluation of mental status. Hospital Course Hospital Course: Patient was admitted, CT scan of head was negative, labs were negative. Other labs were ordered by me including ammonia levels which were unremarkable, and heavy metal screens, also unremarkable. Patient was found to have mild abnormalities of urinalysis, culture pending. Patient cleared over the next 24 hours with improving mental status changes and return of her normal/baseline orientation. I had long discussions with her and her son about etiologies of this acute delirium, and I feel the most likely etiology is cumulative medicine effect possibly precipitated by a mild infection versus psychological issues. I plan to do the following: Have asked her to stop baclofen completely, I have asked her to cut her alprazolam dose in half to 0.5 mg as needed only, and we will reduce Percocet dose down to 7.5 3 times daily. I will see her back in my office on Sunday, I have asked her to bring back any kind of unused Percocet or alprazolam to discuss further dose reduction. Antibiotic will be prescribed for possible cystitis while we await culture results. Objective Vital signs: Temp Pulse Resp BP Pulse Ox 98.2 F 71 16 138/55 L 98 07/07/18 04:00 07/07/18 04:00 07/07/18 04:00 07/07/18 04:00 07/07/18 07:35 Narrative: Patient is alert, oriented x3. Much improved over yesterday. Oropharynx clear, cardiopulmonary assessment unremarkable. Abdomen soft and nontender. No edema or clubbing. Logic exam intact. Nurses report good cognition and orientation through the night. Results Labs on day of discharge: Labs from last 24 hours 07/07/18 07/07/18 07/07/18 06:47 06:47 06:47 WBC 4.8 RBC 4.08 L Hgb 9.4 L Hct 30.7 L MCV 75.3 L MCH 23.1 L MCHC 30.7 L RDW 16.8 Plt Count 219 MPV 9.7 Neut % (Auto) 41.2 Lymph % (Auto) 50.2 H [place] % (Auto) 7.2 Eos % (Auto) 0.3 Baso % (Auto) 1.0 Neut # (Auto) 2.0 Lymph # (Auto) 2.4 [place] # (Auto) 0.4 Eos # (Auto) 0.0 Baso # (Auto) 0.1 Total Counted 100 Neutrophils % (Manual) 48 Lymphocytes % (Manual) 52 H Platelet Estimate Normal Polychromasia 1+ Hypochromasia 2+ Anisocytosis 1+ Microcytosis 2+ Sodium 140 Potassium 3.1 L Chloride 104 Carbon Dioxide 26 Anion Gap 13.1 BUN 12 Creatinine 0.62 Estimated Creat Clear 58 Estimated GFR 94 Est GFR ( Amer) 114 Glucose 121 H Calcium 8.7 Ferritin Total Bilirubin 0.4 AST 15 ALT 26 Alkaline Phosphatase 99 Ammonia 16 L Total Protein 7.0 Albumin 3.9 Globulin 3.1 Albumin/Globulin Ratio 1.3 Stool Occult Blood 07/06/18 07/06/18 13:00 07:45 WBC RBC Hgb Hct MCV MCH MCHC RDW Plt Count MPV Neut % (Auto) Lymph % (Auto) [place] % (Auto) Eos % (Auto) Baso % (Auto) Neut # (Auto) Lymph # (Auto) [place] # (Auto) Eos # (Auto) Baso # (Auto) Total Counted Neutrophils % (Manual) Lymphocytes % (Manual) Platelet Estimate Polychromasia Hypochromasia Anisocytosis Microcytosis Sodium Potassium Chloride Carbon Dioxide Anion Gap BUN Creatinine Estimated Creat Clear Estimated GFR Est GFR ( Amer) Glucose Calcium Ferritin 9 Total Bilirubin AST ALT Alkaline Phosphatase Ammonia Total Protein Albumin Globulin Albumin/Globulin Ratio Stool Occult Blood Negative DS: Diagnosis - Discharge Diagnosis (1) Chronic use of opiate drug for therapeutic purpose Status: Chronic (2) Recurrent depression Status: Chronic (3) Hallucinations Status: Resolved (4) Hypokalemia Status: Acute (5) Hyperthyroidism Status: Chronic (6) Altered mental status Status: Resolved (7) Anemia Status: Acute Discharge Plan - Patient Discharge Instructions ACTIVITY: Continue current activity DIET: continue same diet Patient Instructions: DI for Altered Mental Status - Follow up Plan Follow up with: Hawk Davis MD [Primary Care Provider] - 07/10/18 2:45 pm Disposition: Home, Self-Nursing Home Medications: Home Medications Medication Instructions Recorded Confirmed Type ALPRAZolam [Xanax 1mg tab] 1 mg PO TID 07/05/18 07/05/18 History Baclofen 20 mg PO TID 07/05/18 07/05/18 History Carvedilol [Coreg 25mg Tablet] 25 mg PO BID 07/05/18 07/05/18 History Escitalopram Oxalate [Lexapro] 20 mg PO DAILY 07/05/18 07/05/18 History Omeprazole [Omeprazole 20mg 20 mg PO BID 07/05/18 07/05/18 History Capsule] Oxycodone HCl/Acetaminophen 1 tab PO Q6H PRN 07/05/18 07/05/18 History [Percocet 10-325 mg Tablet] Quetiapine Fumarate [Seroquel] 200 mg PO HS 07/05/18 07/05/18 History Simvastatin [Zocor] 40 mg PO HS 07/05/18 07/05/18 History Rizatriptan Benzoate [Rizatriptan] 10 mg PO DAILY 07/06/18 07/06/18 History Oxycodone HCl/Acetaminophen 1 each PO TID #15 tab 07/07/18 Rx [Percocet 7.5-325 mg Tablet] levoFLOXacin [Levaquin 500mg 500 mg PO DAILY #7 tab 07/07/18 Rx tab] Prescriptions/Medication Reconciliation: New levoFLOXacin [Levaquin 500mg tab] 500 mg PO DAILY #7 tab Oxycodone HCl/Acetaminophen [Percocet 7.5-325 mg Tablet] 1 each PO TID #15 tab Continued Simvastatin [Zocor] 40 mg PO HS Omeprazole [Omeprazole 20mg Capsule] 20 mg PO BID Escitalopram Oxalate [Lexapro] 20 mg PO DAILY Rizatriptan Benzoate [Rizatriptan] 10 mg PO DAILY Carvedilol [Coreg 25mg Tablet] 25 mg PO BID Changed ALPRAZolam [Xanax 1mg tab] 1 mg PO TID PRN #0 PRN Reason: Anxiety Discontinued Oxycodone HCl/Acetaminophen [Percocet 10-325 mg Tablet] 1 tab PO Q6H PRN PRN Reason: pain Quetiapine Fumarate [Seroquel] 200 mg PO HS Baclofen 20 mg PO TID
[2018-07-09 07:07] LABS: Folate 17.5 ng/mL (>3.0)
== END 2018-07-07 09:34 | disposition home or self-care (01) ==
LOC: ER 15:25 → 2ND 15:25
PROVIDERS: ADMIT Internal Medicine Adolescent Medicine; ATTEND Internal Medicine Adolescent Medicine
CPT/HCPCS: 36415; 70450; 71010; 71045; 80048; 80053; 80305; 80329; 81001; 82140; 82175; 82272; 82607; 82728; 82746; 83540; 83550; 83655; 83825; 84436; 84443; 84479; 84484; 85007; 85025; 87086; 93005; 99285; G0328; G0378

== ENCOUNTER → 2018-07-16 12:55 | Outpatient (CLI) | payer MEDICARE, SELFPAY ==
--- NOTE | 2018-07-16 12:57 | MR_ITS ---
MR head/brain wo con HISTORY: Mental status change, ectasia, confusion, headache ITS.REASON: MENTAL STATUS CHANGE, APHASIA ORDERING PHYSICIAN: Hawk Davis MD PATIENT AGE: 77 years Comparison: 02/21/2016 TECHNIQUE: Standard multiplanar multiecho sequences are performed without contrast. FINDINGS: No evidence of acute infarction, no midline shift, mass effect, intracranial hemorrhage, or hydrocephalus is evident. There are scattered periventricular and subcortical T2 white matter hyperintensities consistent with ischemic gliotic change from microvascular disease. These findings have slightly progressed when compared to the previous exam. The cerebellopontine angle, cerebellum, and brainstem are unremarkable as is the pituitary. Unremarkable craniocervical junction. There is bifrontal atrophy no significantly changed. No mastoid effusion or sinus air-fluid level. IMPRESSION: 1. No acute intracranial findings. 2. Atrophy with chronic ischemic gliotic changes.
== END ==
PROVIDERS: PCP Internal Medicine Adolescent Medicine; Visit Provider Internal Medicine Adolescent Medicine
DX: R47.01 Aphasia (principal); Z86.59 Personal history of other mental and behavioral disorders
CPT/HCPCS: 70551

== ENCOUNTER → 2018-08-16 12:47 | Outpatient (CLI) | payer MEDICARE, SELFPAY ==
[2018-08-16 13:14] LABS: Basophils # 0.1 K/mm3 (0-0.2); Basophils % 0.8 % (0.1-2.0); Eosinophils # 0.1 K/mm3 (0.0-0.4); Eosinophils % 1.4 % (0.1-12.0); Hematocrit 34.3 % (37.0-47.0); Hemoglobin 9.5 g/dL (12.2-16.2); Mean Corpuscular HGB Conc 27.6 g/dL (31.8-35.4); Mean Corpuscular Hemoglobin 21.4 pg (27.0-31.2); Mean Corpuscular Volume 77.5 fl (81-99); Mean Platelet Volume 8.1 fl (7.4-10.4); Monocytes # 0.3 K/mm3 (0.1-1.0); Monocytes % 3.4 % (1.7-9.3); Neutrophils # 5.1 K/mm3 (1.8-7.8); Neutrophils % 67.3 % (37.0-80.0); Platelet Count 328 K/mm3 (142-424); Red Blood Count 4.43 M/mm3 (4.20-5.40); Red Cell Distribution Width 16.2 % (11.5-17.5); White Blood Count 7.5 K/mm3 (4.8-10.8)
[2018-08-16 14:16] LABS: Alanine Aminotransferase 25 U/L (12-78); Albumin Level 3.8 gm/dL (3.4-5.0); Albumin/Globulin Ratio 1.3 (1.1-1.8); Alkaline Phosphatase 83 U/L (46-116); Anion Gap 16.7 mEq/L (5-15); Aspartate Amino Transferase 15 U/L (15-37); Bilirubin,Total 0.2 mg/dL (0.2-1.0); Blood Urea Nitrogen 16 mg/dL (7-18); Carbon Dioxide 26 mmol/L (21.0-32.0); Chloride 104 mmol/L (98-107); Creatinine,Serum 0.71 mg/dL (0.55-1.02); Estimated Glomerular Filt Rate 80 ml/min (>60); Free Thyroxine Index 1.2 ug/dL (5.93-13.13); GFR (African American) 97 ML/MIN (>60); Globulin 2.9 gm/dl (1.3-3.2); Glucose 101 mg/dL (74-106); Magnesium 1.8 mg/dL (1.4-2.2); Potassium 4.7 mmoL/L (3.5-5.1); Sodium 142 mmol/L (136-145); T4 (Thyroxine) 3.8 ug/dl (4.7-13.3); Total Protein,Serum 6.7 gm/dL (6.4-8.2); Triiodothryronine (T3) Uptake 32 % (31-39)
== END ==
PROVIDERS: Visit Provider Internal Medicine Adolescent Medicine
DX: E05.90 Thyrotoxicosis, unspecified without thyrotoxic crisis or storm (principal); I10 Essential (primary) hypertension
CPT/HCPCS: 36415; 80053; 83735; 84436; 84443; 84479; 85025

== ENCOUNTER → 2018-11-14 09:03 | Outpatient (CLI) | payer MEDICARE, SELFPAY ==
[2018-11-14 09:17] LABS: Basophils # 0.1 K/mm3 (0-0.2); Eosinophils # 0.1 K/mm3 (0.0-0.4); Eosinophils % 3.2 % (0.1-12.0); Hematocrit 34.2 % (37.0-47.0); Lymphocytes % 44.8 % (10-50); Mean Corpuscular HGB Conc 29.3 g/dL (31.8-35.4); Mean Corpuscular Hemoglobin 23.1 pg (27.0-31.2); Mean Corpuscular Volume 78.8 fl (81-99); Mean Platelet Volume 8.9 fl (7.4-10.4); Monocytes # 0.3 K/mm3 (0.1-1.0); Neutrophils % 43.9 % (37.0-80.0); Platelet Count 281 K/mm3 (142-424); Red Blood Count 4.35 M/mm3 (4.20-5.40); Red Cell Distribution Width 17.8 % (11.5-17.5); White Blood Count 4.5 K/mm3 (4.8-10.8)
[2018-11-14 16:47] LABS: Alanine Aminotransferase 17 U/L (12-78); Albumin Level 4.1 gm/dL (3.4-5.0); Albumin/Globulin Ratio 1.3 (1.1-1.8); Alkaline Phosphatase 83 U/L (46-116); Anion Gap 13.5 mEq/L (5-15); Aspartate Amino Transferase 12 U/L (15-37); Bilirubin,Total 0.4 mg/dL (0.2-1.0); Blood Urea Nitrogen 19 mg/dL (7-18); Calcium 9.1 mg/dL (8.5-10.1); Carbon Dioxide 27 mmol/L (21.0-32.0); Chloride 104 mmol/L (98-107); Chol/HDL Ratio 2.3 (1-3.5); Cholesterol 121 mg/dL (140-200); Creatinine,Serum 0.67 mg/dL (0.55-1.02); Estimated Glomerular Filt Rate 86 ml/min (>60); Free Thyroxine Index 2.4 ug/dL (5.93-13.13); GFR (African American) 104 ML/MIN (>60); Globulin 3.1 gm/dl (1.3-3.2); Glucose 115 mg/dL (74-106); HDL Cholesterol 52 mg/dL (29-89); LDL Cholesterol 59 mg/dL (0-130); Potassium 4.5 mmoL/L (3.5-5.1); Sodium 140 mmol/L (136-145); T4 (Thyroxine) 6.4 ug/dl (4.7-13.3); Thyroid Stimulating Hormone 0.13 uIU/ml (0.358-3.740); Total Protein,Serum 7.2 gm/dL (6.4-8.2); Triglycerides 51 mg/dL (30-200); Triiodothryronine (T3) Uptake 38 % (31-39); VLDL Cholesterol 10 mg/dL (0-40)
== END ==
PROVIDERS: Visit Provider Internal Medicine Adolescent Medicine
DX: E05.90 Thyrotoxicosis, unspecified without thyrotoxic crisis or storm (principal); E78.5 Hyperlipidemia, unspecified
CPT/HCPCS: 36415; 80053; 80061; 84436; 84443; 84479; 85025

== ENCOUNTER 2018-12-17 10:55 | Inpatient (IN) ==
[2018-12-17 11:49] LABS: Basophils # 0.1 K/mm3 (0-0.2); Basophils % 1.2 % (0.1-2.0); Eosinophils # 0.3 K/mm3 (0.0-0.4); Eosinophils % 4.8 % (0.1-12.0); Lymphocytes # 2.6 K/mm3 (0.7-4.5); Lymphocytes % 45.1 % (10-50); Mean Corpuscular HGB Conc 26.1 g/dL (31.8-35.4); Mean Corpuscular Volume 76.9 fl (81-99); Mean Platelet Volume 9.6 fl (7.4-10.4); Monocytes # 0.6 K/mm3 (0.1-1.0); Monocytes % 10.4 % (1.7-9.3); Neutrophils # 2.3 K/mm3 (1.8-7.8); Neutrophils % 38.6 % (37.0-80.0); Platelet Count 272 K/mm3 (142-424); Red Blood Count 2.59 M/mm3 (4.20-5.40); Red Cell Distribution Width 18.3 % (11.5-17.5); White Blood Count 5.8 K/mm3 (4.8-10.8)
[2018-12-17 11:55] LABS: Hematocrit 19.9 % (37.0-47.0)
[2018-12-17 13:24] LABS: Hemoglobin 5.2 g/dL (12.2-16.2)
[2018-12-17 14:52] LABS: Albumin Level 3.8 gm/dL (3.4-5.0); Albumin/Globulin Ratio 1.5 (1.1-1.8); Bilirubin,Total 0.3 mg/dL (0.2-1.0); Calcium 8.7 mg/dL (8.5-10.1); Free Thyroxine Index 2.4 ug/dL (5.93-13.13); Globulin 2.6 gm/dl (1.3-3.2); Thyroid Stimulating Hormone 0.04 uIU/ml (0.358-3.740); Total Protein,Serum 6.4 gm/dL (6.4-8.2)
--- NOTE | 2018-12-17 15:03 | Pharmacy Consult Notes ---
[facility] Pharmacy VTE Monitoring - Patient Demographics Admission date: 12/17/18 Report Date: 12/17/18 Time: 15:03 Allergies/Adverse Reactions: Patient Allergies haloperidol [From HALDOL] Allergy (Unknown, Unverified 03/06/17 15:30) Height: 1.7 m Weight: 81.278 kg - VTE Risk Labs: VTE Related Lab Results Hgb 5.2 g/dL (12.2-16.2) L* 12/17/18 11:24 Hct 19.9 % (37.0-47.0) L* 12/17/18 11:24 Plt Count 272 K/mm3 (142-424) 12/17/18 11:24 BUN 33 mg/dL (7-18) H 12/17/18 11:24 Creatinine 1.00 mg/dL (0.55-1.02) 12/17/18 11:24 Estimated Creat Clear 61 mL/min (50-200) 12/17/18 11:24 - Prophylaxis VTE Prophylaxis Ordered?: Yes Types of VTE Prophylaxis: TEDS Knee High Location of Applied Device: Bilateral Lower Extremeties - VTE Diagnosis Confirmed Treatment or plan recommended: Continue Current Treatment
--- NOTE | 2018-12-17 15:48 | History & Physical Report ---
*Admission Date: 12/17/18 *Chief complaint: symptomatic anemia, fatigue *History of present illness: Ms. Campuzano is a 78-year-old female on multiple psychiatric medications who presented to clinic yesterday with complaint of fatigue and weakness. She chronically has pallor at baseline with some mild anemia on previous exam and labs. Labs obtained yesterday showed concern for acute worsening of patient's anemia. She has dropped from a hemoglobin of 10 to 5.2 in the span of 1 month. Did not report any tory bleeding, coffee-ground emesis, or regular melenic stools however on further questioning does report that she has had some dark stools for the past 2 to 3 weeks that she attributed to her high intake of dark leafy greens. Is on 2 aspirin daily, though no other known anticoagulants, NSAIDs, anti-inflammatories. Takes omeprazole daily for GERD. Aside from fatigue, otherwise well. No fever or easy bruising reported. Of note platelets are normal. BUN is elevated disproportionate to creatinine concerning for GI source of bleed. At this time is admitted for unknown source of acute anemia with surgical consult placed. Plan to type and screen with transfusion of 2 units pending work-up for anemia. Admitted to medicine for further management [facility] History I have reviewed the patient's past medical history: Yes Medical History: Reports:: Anxiety, Depression, Hyperlipidemia, Hypertension Denies:: Cancer, Diabetes Mellitus Type 1, Diabetes Mellitus Type 2, MRSA *Have you ever received a pneumonia vaccine?: Yes *Have you received a flu vaccine this season?: Yes Other Medical History: Reports: Anemia, Hypothyroidism, Thyroid Disease Other Surgeries: Yes: Cholecystectomy, Other (Multiple back/lumbar fusion procedures) Amputation: No Fractures: No - *Social History Smoking Status: Never smoker Alcohol Intake: current Alcohol Intake Frequency:: holidays/special occasions only Substance Use Type: denies use *Occupational Status:: retired Housing: house Household Members: none *Travel in the last 8 weeks: None - Psychiatric History Pschychiatric History:: Reports:: Anxiety, Depression, Post Traumatic Stress Disorder Family Hx:: No significant family history Review of Systems - Review of Systems Review of systems:: pertinent systems reviewed and negative unless documented below Meds Home Medications Medication Instructions Recorded Confirmed Type Escitalopram Oxalate [Lexapro] 20 mg PO DAILY 07/05/18 12/17/18 History Omeprazole [Omeprazole 20mg 20 mg PO BID 07/05/18 12/17/18 History Capsule] Simvastatin [Zocor] 40 mg PO HS 07/05/18 12/17/18 History Rizatriptan Benzoate [Rizatriptan] 10 mg PO NEEDED PRN 07/06/18 12/17/18 History ALPRAZolam [Xanax 1mg tab] 1 mg PO BIDP PRN 12/17/18 12/17/18 History Aspirin [Aspirin 81mg EC Tab] 81 mg PO DAILY 12/17/18 12/17/18 History Calcium Carbonate/Vitamin D3 2 each PO BID 12/17/18 12/17/18 History [Calcium 1,000 + D3 Caplet] Multivitamin [Multivitamins] 1 each PO DAILY 12/17/18 12/17/18 History Oxycodone HCl/Acetaminophen 1 each PO TID 12/17/18 12/17/18 History [Percocet 7.5-325 mg Tablet] Propranolol HCl 40 tab PO BID 12/17/18 12/17/18 History Quetiapine Fumarate 200 mg PO HS 12/17/18 12/17/18 History Vitamin E (Dl,Tocopheryl Acet) 400 unit PO DAILY 12/17/18 12/17/18 History [Vitamin E 400 IUnits capsule] Allergies Allergy/AdvReac Type Severity Reaction Status Date / Time haloperidol [From HALDOL] Allergy Unknown Unverified 03/06/17 15:30 Exam Vital signs and Labs for Last 24 Hours: Temp Pulse Resp BP Pulse Ox 98.4 F 97 H 20 148/69 H 98 12/17/18 14:07 12/17/18 14:07 12/17/18 14:07 12/17/18 14:07 12/17/18 14:07 Laboratory Results - last 24 hr 12/17/18 11:24: Sodium 140, Potassium 5.0, Chloride 104, Carbon Dioxide 22, Anion Gap 19.0 H, BUN 33 H, Creatinine 1.00, Estimated Creat Clear 61, Estimated GFR 54 L, Est GFR ( Amer) 65, Glucose 107 H, Calcium 8.7, Magnesium 1.9, Total Bilirubin 0.3, AST 4 L, ALT 13, Alkaline Phosphatase 73, Total Protein 6.4, Albumin 3.8, Globulin 2.6, Albumin/Globulin Ratio 1.5, TSH 0.04 L D, Free T4 Index 2.4 L, Thyroxine (T4) 6.8, T3 Uptake 35 12/17/18 11:24: WBC 5.8, RBC 2.59 L, Hgb 5.2 L*, Hct 19.9 L*, MCV 76.9 L, MCH 20.1 L, MCHC 26.1 L, RDW 18.3 H, Plt Count 272, MPV 9.6, Neut % (Auto) 38.6, Lymph % (Auto) 45.1, [place] % (Auto) 10.4 H, Eos % (Auto) 4.8, Baso % (Auto) 1.2, Neut # (Auto) 2.3, Lymph # (Auto) 2.6, [place] # (Auto) 0.6, Eos # (Auto) 0.3, Baso # (Auto) 0.1 I & O for Last 24 hours: Intake & Output 12/14/18 12/15/18 12/16/18 12/17/18 23:59 23:59 23:59 23:59 Weight 81.278 kg - Constitutional no acute distress, average body habitus, cooperative - *Routine HEENT Exam Head: Present: normocephalic Eye: Present: EOMI, PERRL ENT: Present: mucous membranes moist - *Routine Neck Exam Present: supple. Absent: lymphadenopathy - *Routine Respiratory Exam Present: CTA bilaterally - *Routine Cardiovascular Exam Present: RRR - *Routine Abdominal Exam Present: soft, normoactive bowel sounds. Absent: tenderness - *Routine Extremities Exam Absent: cyanosis, clubbing, edema - *Routine Skin Exam Present: pallor, warm. Absent: rash - *Routine Neurological Exam Present: alert, oriented X3. Absent: altered mental status Assessment and Plan (1) Hyperammonemia Current visit: Yes Status: Acute Category: Medical Code(s): E72.20 - Disorder of urea cycle metabolism, unspecified (2) Anemia Current visit: No Status: Acute Qualifiers: Anemia type: iron deficiency Category: Medical Code(s): D64.9 - Anemia, unspecified At this time anemia appears to be acute on chronic iron deficient anemia. Made n.p.o. Initiated Protonix. Surgery consulted for consideration of EGD/colonoscopy. Typed and screened. Plan to transfuse 2 units. Monitor for active bleeding. N.p.o. at this time except for medications. Holding all anticoagulants or anti-inflammatories that may exacerbate possible GI bleed. Low suspicion for hemolysis given normal platelet count however will obtain LDH and haptoglobin for further assessment at this time. (3) Chronic use of opiate drug for therapeutic purpose Current visit: No Status: Chronic Category: Medical Code(s): Z79.891 - care home (current) use of opiate analgesic (4) Recurrent depression Current visit: No Status: Chronic Category: Medical Code(s): F33.9 - Major depressive disorder, recurrent, unspecified - Assessment and plan all Dx Assessment and Plan for all problems:: 78-year-old female admitted to medicine for acute on chronic microcytic anemia. Suspected GI loss given elevated BUN, dark stools, precipitous nature of drop. Extreme pallor on exam. Typed and crossed 2 units for transfusion. Surgery consulted for further assessment including possible EGD and colonoscopy. Will monitor overnight with clear liquid diet and n.p.o. after midnight. Further management pending results of scopes. Started on Protonix for GI prophylaxis and holding all anti-inflammatory/anticoagulant medications at this time. Continues to require inpatient management
--- NOTE | 2018-12-17 16:43 | Consult Report ---
*Admission Date: 12/17/18 *Reason for consult:: Anemia, possible GI bleed *History of present illness: Patient is a very pleasant 78-year-old white female. She does have some degree of mild anemia with a hemoglobin of approximately 10 as recent baseline. She states that about 3 weeks ago on 11/28/2018 she had what she describes as a migraine headache. She also did have what she thought was a minor gastroe nteritis at that time where she had diminished appetite and nausea. Subsequently she has felt somewhat weak. She states that recently when she was shopping she had some shortness of breath. She denies any obvious melena although she states that she had blackish bowel movement yesterday but she at tributed to her heavy intake of leafy greens such as spinach and kale. She was seen in the office yesterday by Dr. Hawk Davis and had blood work done this morning. This revealed an appreciable anemia with a hemoglobin of 5.2. Patient was contacted and made a direct admit for inpatient management. She denies any prior history of ulcer disease. She only takes 81 mg aspirin as well as omepra zole. She has had prior upper endoscopy at this institution many years ago and she states that she had a colonoscopy and EGD by Dr. Mullins in [place] about 3 years ago which was reportedly unremarkable. Review of Systems - Review of Systems Review of systems:: pertinent systems reviewed and negative unless documented below [facility] History Medical History: Reports:: Anxiety, Depression, Hyperlipidemia, Hypertension Denies:: Cancer, Diabetes Mellitus Type 1, Diabetes Mellitus Type 2, MRSA *Have you ever received a pneumonia vaccine?: Yes *Have you received a flu vaccine this season?: Yes Other Medical History: Reports: Anemia, Hypothyroidism, Thyroid Disease Other Surgeries: Yes: Cholecystectomy, Other (Multiple back/lumbar fusion procedures) Amputation: No Fractures: No - *Social History Smoking Status: Never smoker Alcohol Intake: current Alcohol Intake Frequency:: holidays/special occasions only Substance Use Type: denies use *Occupational Status:: retired Housing: house Household Members: none *Travel in the last 8 weeks: None - Psychiatric History Pschychiatric History:: Reports:: Anxiety, Depression, Post Traumatic Stress Disorder Family Hx:: No significant family history Meds Home Medications Medication Instructions Recorded Confirmed Type Escitalopram Oxalate [Lexapro] 20 mg PO DAILY 07/05/18 12/17/18 History Omeprazole [Omeprazole 20mg 20 mg PO BID 07/05/18 12/17/18 History Capsule] Simvastatin [Zocor] 40 mg PO HS 07/05/18 12/17/18 History Rizatriptan Benzoate [Rizatriptan] 10 mg PO NEEDED PRN 07/06/18 12/17/18 History ALPRAZolam [Xanax 1mg tab] 1 mg PO BIDP PRN 12/17/18 12/17/18 History Aspirin [Aspirin 81mg EC Tab] 81 mg PO DAILY 12/17/18 12/17/18 History Calcium Carbonate/Vitamin D3 2 each PO BID 12/17/18 12/17/18 History [Calcium 1,000 + D3 Caplet] Multivitamin [Multivitamins] 1 each PO DAILY 12/17/18 12/17/18 History Oxycodone HCl/Acetaminophen 1 each PO TID 12/17/18 12/17/18 History [Percocet 7.5-325 mg Tablet] Propranolol HCl 40 mg PO BID 12/17/18 12/17/18 History Quetiapine Fumarate 200 mg PO HS 12/17/18 12/17/18 History Vitamin E (Dl,Tocopheryl Acet) 400 unit PO DAILY 12/17/18 12/17/18 History [Vitamin E 400 IUnits capsule] Allergies Allergy/AdvReac Type Severity Reaction Status Date / Time haloperidol [From HALDOL] Allergy Unknown Unverified 03/06/17 15:30 Exam Vital signs and Labs for Last 24 Hours: Temp Pulse Resp BP Pulse Ox 98.4 F 97 H 20 148/69 H 98 12/17/18 14:07 12/17/18 14:07 12/17/18 14:07 12/17/18 14:07 12/17/18 14:07 Laboratory Results - last 24 hr 12/17/18 11:24: Sodium 140, Potassium 5.0, Chloride 104, Carbon Dioxide 22, Anion Gap 19.0 H, BUN 33 H, Creatinine 1.00, Estimated Creat Clear 61, Estimated GFR 54 L, Est GFR ( Amer) 65, Glucose 107 H, Calcium 8.7, Magnesium 1.9, Total Bilirubin 0.3, AST 4 L, ALT 13, Alkaline Phosphatase 73, Total Protein 6.4, Albumin 3.8, Globulin 2.6, Albumin/Globulin Ratio 1.5, TSH 0.04 L D, Free T4 Index 2.4 L, Thyroxine (T4) 6.8, T3 Uptake 35 12/17/18 11:24: WBC 5.8, RBC 2.59 L, Hgb 5.2 L*, Hct 19.9 L*, MCV 76.9 L, MCH 20.1 L, MCHC 26.1 L, RDW 18.3 H, Plt Count 272, MPV 9.6, Neut % (Auto) 38.6, Lymph % (Auto) 45.1, [place] % (Auto) 10.4 H, Eos % (Auto) 4.8, Baso % (Auto) 1.2, Neut # (Auto) 2.3, Lymph # (Auto) 2.6, [place] # (Auto) 0.6, Eos # (Auto) 0.3, Baso # (Auto) 0.1 I & O for Last 24 hours: Intake & Output 12/15/18 12/16/18 12/17/18 12/18/18 11:59 11:59 11:59 11:59 Weight 179 lb 3 oz - *Routine HEENT Exam Head: Present: normocephalic Eye: Present: EOMI, PERRL ENT: Present: mucous membranes moist - *Routine Neck Exam Present: supple. Absent: lymphadenopathy - *Routine Respiratory Exam Present: CTA bilaterally - *Routine Cardiovascular Exam Present: RRR - *Routine Abdominal Exam Present: soft, normoactive bowel sounds. Absent: tenderness - *Routine Extremities Exam Absent: cyanosis, clubbing, edema - *Routine Skin Exam Present: warm. Absent: rash - *Routine Neurological Exam Present: alert, oriented X3 - Detailed Eye Exam Eyelids: Left normal inspection Results - Labs 12/17/18 11:24 12/17/18 11:24 Laboratory Results - last 24 hr 12/17/18 11:24: Sodium 140, Potassium 5.0, Chloride 104, Carbon Dioxide 22, Anion Gap 19.0 H, BUN 33 H, Creatinine 1.00, Estimated Creat Clear 61, Estimated GFR 54 L, Est GFR ( Amer) 65, Glucose 107 H, Calcium 8.7, Magnesium 1.9, Total Bilirubin 0.3, AST 4 L, ALT 13, Alkaline Phosphatase 73, Total Protein 6.4, Albumin 3.8, Globulin 2.6, Albumin/Globulin Ratio 1.5, TSH 0.04 L D, Free T4 Index 2.4 L, Thyroxine (T4) 6.8, T3 Uptake 35 12/17/18 11:24: WBC 5.8, RBC 2.59 L, Hgb 5.2 L*, Hct 19.9 L*, MCV 76.9 L, MCH 20.1 L, MCHC 26.1 L, RDW 18.3 H, Plt Count 272, MPV 9.6, Neut % (Auto) 38.6, Lymph % (Auto) 45.1, [place] % (Auto) 10.4 H, Eos % (Auto) 4.8, Baso % (Auto) 1.2, Neut # (Auto) 2.3, Lymph # (Auto) 2.6, [place] # (Auto) 0.6, Eos # (Auto) 0.3, Baso # (Auto) 0.1 Assessment and Plan (1) Hyperammonemia Current visit: Yes Status: Acute Category: Medical Code(s): E72.20 - D isorder of urea cycle metabolism, unspecified (2) Anemia Current visit: No Status: Acute Qualifiers: Anemia type: iron deficiency Category: Medical Code(s): D64.9 - Anemia, unspecified (3) Chronic use of opiate drug for therapeutic purpose Current visit: No Status: Chronic Category: Medical Code(s): Z79.891 - [facility] (current) use of opiate analgesic (4) Recurrent depression Current visit: No Status: Chronic Category: Medical Code(s): F33.9 - Major depressive disorder, recurrent, unspecified - Assessment and plan all Dx Assessment and Plan for all problems:: Patient may have clear liquids this afternoon as this does not appear to be an active acute bleed. Suspect possible upper GI etiology due to the disproportionately elevated BUN/creatinine. Tentatively plan for upper endoscopy tomorrow.
[2018-12-18 05:11] LABS: Anion Gap 13.1 mEq/L (5-15); Calcium 8.3 mg/dL (8.5-10.1)
[2018-12-18 05:21] LABS: Eosinophils # 0.2 K/mm3 (0.0-0.4); Eosinophils % 4.8 % (0.1-12.0); Lymphocytes # 2.3 K/mm3 (0.7-4.5); Lymphocytes % 58.4 % (10-50); Mean Corpuscular HGB Conc 28.9 g/dL (31.8-35.4); Mean Corpuscular Volume 78.6 fl (81-99); Mean Platelet Volume 8.5 fl (7.4-10.4); Monocytes # 0.3 K/mm3 (0.1-1.0); Monocytes % 8.2 % (1.7-9.3); Neutrophils # 1.1 K/mm3 (1.8-7.8); Neutrophils % 27.6 % (37.0-80.0); Platelet Count 191 K/mm3 (142-424); Red Blood Count 2.77 M/mm3 (4.20-5.40); Red Cell Distribution Width 19.8 % (11.5-17.5)
[2018-12-18 05:37] LABS: Hemoglobin 6.3 g/dL (12.2-16.2)
[2018-12-18 05:38] LABS: Hematocrit 21.9 % (37.0-47.0)
--- NOTE | 2018-12-18 07:00 | Progress Note ---
Subjective Narrative: Patient without any new complaints. Still feels somewhat weak. Exam Vital signs and Labs for Last 24 Hours: Temp Pulse Resp BP Pulse Ox 98.0 F 74 19 120/72 96 12/18/18 04:45 12/18/18 04:45 12/18/18 04:45 12/18/18 04:45 12/18/18 04:45 Laboratory Results - last 24 hr 12/17/18 11:24: Sodium 140, Potassium 5.0, Chloride 104, Carbon Dioxide 22, Anion Gap 19.0 H, BUN 33 H, Creatinine 1.00, Estimated Creat Clear 61, Estimated GFR 54 L, Est GFR ( Amer) 65, Glucose 107 H, Calcium 8.7, Magnesium 1.9, Total Bilirubin 0.3, AST 4 L, ALT 13, Alkaline Phosphatase 73, Total Protein 6.4, Albumin 3.8, Globulin 2.6, Albumin/Globulin Ratio 1.5, TSH 0.04 L D, Free T4 Index 2.4 L, Thyroxine (T4) 6.8, T3 Uptake 35 12/17/18 11:24: WBC 5.8, RBC 2.59 L, Hgb 5.2 L*, Hct 19.9 L*, MCV 76.9 L, MCH 20.1 L, MCHC 26.1 L, RDW 18.3 H, Plt Count 272, MPV 9.6, Neut % (Auto) 38.6, Lymph % (Auto) 45.1, [place] % (Auto) 10.4 H, Eos % (Auto) 4.8, Baso % (Auto) 1.2, Neut # (Auto) 2.3, Lymph # (Auto) 2.6, [place] # (Auto) 0.6, Eos # (Auto) 0.3, Baso # (Auto) 0.1 12/17/18 16:24: Blood Type A Positive, Antibody Screen Negative, Crossmatch (AHG) See Detail 12/17/18 16:24: Lactate Dehydrogenase 139 12/17/18 19:00: Blood Type Confirm A Positive 12/18/18 04:50: WBC 4.0 L D, RBC 2.77 L, Hgb 6.3 L* D, Hct 21.9 L*, MCV 78.6 L, MCH 22.7 L, MCHC 28.9 L, RDW 19.8 H, Plt Count 191 D, MPV 8.5, Neut % (Auto) 27.6 L, Lymph % (Auto) 58.4 H, [place] % (Auto) 8.2, Eos % (Auto) 4.8, Baso % (Auto) 1.0, Neut # (Auto) 1.1 L, Lymph # (Auto) 2.3, [place] # (Auto) 0.3, Eos # (Auto) 0.2, Baso # (Auto) 0.0 12/18/18 04:50: Sodium 141, Potassium 4.1, Chloride 106, Carbon Dioxide 26, Anion Gap 13.1, BUN 19 H D, Creatinine 0.57 D, Estimated Creat Clear 61, Estimated GFR 103, Est GFR ( Amer) 125 D, Glucose 95, Calcium 8.3 L I & O for Last 24 hours: Intake & Output 12/15/18 12/16/18 12/17/18 12/18/18 11:59 11:59 11:59 11:59 Intake Total 2379 / 2379 Balance 2379 / 2379 Weight 179 lb 2.997 oz - Constitutional no acute distress - *Routine Abdominal Exam Present: soft Progress Note: A&P (1) Hyperammonemia Status: Acute Current Visit: Yes (2) Anemia Status: Acute Current Visit: No (3) Chronic use of opiate drug for therapeutic purpose Status: Chronic Current Visit: No (4) Recurrent depression Status: Chronic Current Visit: No Assessment and Plan for All Diagnoses:: Minimal response to 2 unit transfusion. May need additional packed red blood cell transfusion. Tentatively plan for upper endoscopy later today.
--- NOTE | 2018-12-18 08:32 | Progress Note ---
Internal Medicine - PN: Subj *Date: 12/18/18 *Time: 08:31 Interval history: Patient feels somewhat better but continues to feel very fatigued and arm and leg weakness when she gets up and moves about. She does note that she is very hungry. Exam Vital signs and Labs for Last 24 Hours: Temp Pulse Resp BP Pulse Ox 98.5 F 78 18 138/70 99 12/18/18 08:00 12/18/18 08:00 12/18/18 08:00 12/18/18 08:00 12/18/18 08:00 Laboratory Results - last 24 hr 12/17/18 11:24: Sodium 140, Potassium 5.0, Chloride 104, Carbon Dioxide 22, Anion Gap 19.0 H, BUN 33 H, Creatinine 1.00, Estimated Creat Clear 61, Estimated GFR 54 L, Est GFR ( Amer) 65, Glucose 107 H, Calcium 8.7, Magnesium 1.9, Total Bilirubin 0.3, AST 4 L, ALT 13, Alkaline Phosphatase 73, Total Protein 6.4, Albumin 3.8, Globulin 2.6, Albumin/Globulin Ratio 1.5, TSH 0.04 L D, Free T4 Index 2.4 L, Thyroxine (T4) 6.8, T3 Uptake 35 12/17/18 11:24: WBC 5.8, RBC 2.59 L, Hgb 5.2 L*, Hct 19.9 L*, MCV 76.9 L, MCH 20.1 L, MCHC 26.1 L, RDW 18.3 H, Plt Count 272, MPV 9.6, Neut % (Auto) 38.6, Lymph % (Auto) 45.1, [place] % (Auto) 10.4 H, Eos % (Auto) 4.8, Baso % (Auto) 1.2, Neut # (Auto) 2.3, Lymph # (Auto) 2.6, [place] # (Auto) 0.6, Eos # (Auto) 0.3, Baso # (Auto) 0.1 12/17/18 16:24: Blood Type A Positive, Antibody Screen Negative, Crossmatch (AHG) See Detail 12/17/18 16:24: Lactate Dehydrogenase 139 12/17/18 19:00: Blood Type Confirm A Positive 12/18/18 04:50: WBC 4.0 L D, RBC 2.77 L, Hgb 6.3 L* D, Hct 21.9 L*, MCV 78.6 L, MCH 22.7 L, MCHC 28.9 L, RDW 19.8 H, Plt Count 191 D, MPV 8.5, Neut % (Auto) 27.6 L, Lymph % (Auto) 58.4 H, [place] % (Auto) 8.2, Eos % (Auto) 4.8, Baso % (Auto) 1.0, Neut # (Auto) 1.1 L, Lymph # (Auto) 2.3, [place] # (Auto) 0.3, Eos # (Auto) 0.2, Baso # (Auto) 0.0 12/18/18 04:50: Sodium 141, Potassium 4.1, Chloride 106, Carbon Dioxide 26, Anion Gap 13.1, BUN 19 H D, Creatinine 0.57 D, Estimated Creat Clear 61, Estimated GFR 103, Est GFR ( Amer) 125 D, Glucose 95, Calcium 8.3 L I & O for Last 24 hours: Intake & Output 12/15/18 12/16/18 12/17/18 12/18/18 11:59 11:59 11:59 11:59 Intake Total 2403 / 2403 Balance 2403 / 2403 Weight 179 lb 2.997 oz Narrative: Patient is alert. Pleasant. Somewhat less pale than yesterday. Heart rate regular without murmurs. Lungs are clear. Abdomen soft and nontender. No peripheral edema, clubbing or cyanosis. ENT exam clear. Assessment and Plan (1) Anemia Current visit: No Status: Acute Qualifiers: Anemia type: iron deficiency Category: Medical Code(s): D64.9 - Anemia, unspecified Appreciate surgical input. Hold aspirin at this point. Patient will need another 2 units of packed cells today. (2) Chronic use of opiate drug for therapeutic purpose Current visit: No Status: Chronic Category: Medical Code(s): Z79.891 - [facility] (current) use of opiate analgesic (3) Recurrent depression Current visit: No Status: Chronic Category: Medical Code(s): F33.9 - Major depressive disorder, recurrent, unspecified
[2018-12-18 10:20] LABS: Eosinophils % 4 % (0-3); Lymphocytes % 58 % (10-50); Monocytes % 6 % (2-9); Neutrophils % 30 % (42-76); Total Cells Counted 50
[2018-12-18 10:22] LABS: Anisocytosis 1+
[2018-12-18 10:23] LABS: Hypochromasia 2+
--- NOTE | 2018-12-18 12:55 | Progress Note ---
[facility] Anesthesia Checklist - Patient Identification Patient Identification: Arm Band, Verbal (Name & ) - Structural Data Admitted From: Inpatient Planned Operative Procedure/s: egd Consent for Planned Operative Procedure(s) Verified: Yes Verified Documents: History and Physical - NPO Status Verified Time NPO: 00:00 - Additional verifications Patient : No Anesthesia Reactions: No Hx Blood Transfusions: No Blood Transfusion Reaction: No Cephalosporin Allergy: No Previous Colonoscopy: Yes - Cardiovascular Assessment Heart Sounds: S1 & S2 Pulse Strength: Baseline Pulse Rhythm: Regular Peripheral Edema: No - Airway Assessment C-Spine Mobility Assessed: Yes TMJ Mobility Assessed: Yes Dentition: Good Dentition - Neurological Assessment Level of Consciousness: Awake, Alert, Appropriate Hx Seizures: No Numbness or tingling in extremities: No - Anesthesia Plan Anesthesia Risk discussed: Yes Anesthesia Plan: Verified ASA Class: II Anesthesia Type: [facility] History I have reviewed the patient's past medical history: Yes Medical History: Reports:: Anxiety, Depression, Hyperlipidemia, Hypertension Denies:: Cancer, Diabetes Mellitus Type 1, Diabetes Mellitus Type 2, MRSA *Have you ever received a pneumonia vaccine?: Yes *Have you received a flu vaccine this season?: Yes Other Medical History: Reports: Anemia, Hypothyroidism, Thyroid Disease Anesthesia experience/problems:: none Other Surgeries: Yes: Cholecystectomy, Other (Multiple back/lumbar fusion procedures) Amputation: No Fractures: No - *Social History Smoking Status: Never smoker Alcohol Intake: current Alcohol Intake Frequency:: holidays/special occasions only Substance Use Type: denies use *Occupational Status:: retired Housing: house Household Members: none *Travel in the last 8 weeks: None - Psychiatric History Pschychiatric History:: Reports:: Anxiety, Depression, Post Traumatic Stress Disorder Family Hx:: No significant family history
--- NOTE | 2018-12-18 14:08 | Procedure Note ---
- Procedure: Date: 12/18/18 Procedure Performed:: Esophagogastroduodenoscopy with biopsies Indications:: Patient is a very pleasant 78-year-old white female who had been seen and evaluated in her primary care provider's office on 12/16/2018. She had some complaints of weakness and mild shortness of breath. She underwent blood work which was performed yesterday morning revealing appreciable anemia with a hemoglobin of 5.2 which was down from her baseline of 9-10. Patient states that she may have had some dark stools but denied any hematemesis, abdominal pain, rectal bleeding. She was admitted for inpatient management with anemia work-up and surgical consultation for endoscopy. She was given 2 units of packed red blood cells which resulted in minimal improvement in hemoglobin. Plan was made for upper endoscopy. Performing Provider:: Aman Fernandez MD Referring Provider:: Hawk Davis MD Sedation:: Propofol Procedure:: Consent was obtained patient was taken to endoscopy procedure room. Adequate intravenous sedation was achieved with anesthesia titration of propofol. Olympus endoscope was inserted via the oropharynx and advanced to the esophagus which appeared unremarkable. Stomach was cannulated and insufflated. Retroflexion revealed a moderately large sliding hiatal hernia. Overall gastric lumen appeared relatively unremarkable. However there were noted to be a couple of small linear erosions along the mid gastric body. There is no evidence of any recent stigmata of bleeding. Pylorus was traversed. Endoscope was advanced to the distal duodenum which appeared unremarkable. Duodenal bulb was carefully inspected and found to be without any obvious pathology. Gastric antral mucosal biopsy was obtained to evaluate and assess for H. pylori. Stomach was desufflated and the scope was withdrawn. Findings:: Large sliding hiatal hernia Chronic appearing gastric erosions in the gastric body Recommendations:: There does not appear to be any stigmata of recent bleeding. It is possible she could have had bleeding from gastric erosions. Would plan to treat expectantly. Recommend outpatient colonoscopy for completeness. If all of this is unremarkable she could require small bowel evaluation including small bowel follow-through and capsule endoscopy. Complications:: None immediately apparent Estimated blood obtained (mL): 1
[2018-12-18 16:59] LABS: Hematocrit 29.7 % (37.0-47.0)
[2018-12-18 17:03] LABS: Hemoglobin 8.8 g/dL (12.2-16.2)
[2018-12-19 07:10] LABS: Eosinophils # 0.2 K/mm3 (0.0-0.4); Eosinophils % 4.2 % (0.1-12.0); Hematocrit 30.5 % (37.0-47.0); Hemoglobin 8.8 g/dL (12.2-16.2); Lymphocytes # 1.9 K/mm3 (0.7-4.5); Lymphocytes % 41.6 % (10-50); Mean Corpuscular Volume 82.5 fl (81-99); Mean Platelet Volume 9.3 fl (7.4-10.4); Monocytes # 0.5 K/mm3 (0.1-1.0); Monocytes % 9.8 % (1.7-9.3); Neutrophils % 43.3 % (37.0-80.0); Platelet Count 238 K/mm3 (142-424); Red Blood Count 3.69 M/mm3 (4.20-5.40); Red Cell Distribution Width 19.2 % (11.5-17.5); White Blood Count 4.6 K/mm3 (4.8-10.8)
[2018-12-19 07:16] LABS: Anion Gap 11.2 mEq/L (5-15); Calcium 8.7 mg/dL (8.5-10.1)
--- NOTE | 2018-12-19 07:52 | Discharge Summary ---
General - General Admission date:: 12/17/18 Discharge date: 12/19/18 HPI HPI: Ms. Campuzano is a 78-year-old female on multiple psychiatric medications who presented to clinic yesterday with complaint of fatigue and weakness. She chronically has pallor at baseline with some mild anemia on previous exam and labs. Labs obtained yesterday showed concern for acute worsening of patient's anemia. She has dropped from a hemoglobin of 10 to 5.2 in the span of 1 month. Did not report any tory bleeding, coffee-ground emesis, or regular melenic stools however on further questioning does report that she has had some dark stools for the past 2 to 3 weeks that she attributed to her high intake of dark leafy greens. Is on 2 aspirin daily, though no other known anticoagulants, NSAIDs, anti-inflammatories. Takes omeprazole daily for GERD. Aside from fatigue, otherwise well. No fever or easy bruising reported. Of note platelets are normal. BUN is elevated disproportionate to creatinine concerning for GI source of bleed. At this time is admitted for unknown source of acute anemia with surgical consult placed. Plan to type and screen with transfusion of 2 units pending work-up for anemia. Admitted to medicine for further management Hospital Course Hospital Course: Patient was admitted, underwent upper endoscopy. The results are noted below. Consent was obtained patient was taken to endoscopy procedure room. Adequate intravenous sedation was achieved with anesthesia titration of propofol. Olympus endoscope was inserted via the oropharynx and advanced to the esophagus which appeared unremarkable. Stomach was cannulated and insufflated. Retroflexion revealed a moderately large sliding hiatal hernia. Overall gastric lumen appeared relatively unremarkable. However there were noted to be a couple of small linear erosions along the mid gastric body. There is no evidence of any recent stigmata of bleeding. Pylorus was traversed. Endoscope was advanced to the distal duodenum which appeared unremarkable. Duodenal bulb was carefully inspected and found to be without any obvious pathology. Gastric antral mucosal biopsy was obtained to evaluate and assess for H. pylori. Stomach was desufflated and the scope was withdrawn. Above notes for surgery-appreciate consult notes and scope. Patient was transferred back to the floor. She received 2 more units of packed cells after hemoglobin wei into the mid 6 range after the initial 2 units. Response to the second 2 units was much more appropriate with hemoglobin rising to 8.8 g. Overnight she did well. No stigmata of bleeding. Tolerated p.o. feedings well. This morning hemoglobin is once again 8.8 and patient was feeling much better in regards to weakness and leg tingling. She will be discharged home. I will see her in 2 days for a CBC. Surgical follow-up next week to evaluate ongoing GI work-up for repeat colonoscopy versus small bowel capsule enteroscopy. I instructed her to discontinue aspirin and begin taking omeprazole twice daily. Objective Vital signs: Temp Pulse Resp BP Pulse Ox 98.1 F 67 16 145/66 H 98 12/19/18 04:00 12/19/18 04:00 12/19/18 04:00 12/19/18 04:00 12/19/18 04:00 Narrative: Pleasant, talkative, alert. ENT exam clear. Lungs with good air movement. Pulse rate regular. Abdomen soft, benign, no edema, clubbing. Neurologic exam intact. No rash. Results Labs on day of discharge: Labs from last 24 hours 12/19/18 12/18/18 12/18/18 06:35 16:40 04:50 WBC 4.6 L RBC 3.69 L D Hgb 8.8 L 8.8 L D Hct 30.5 L 29.7 L MCV 82.5 MCH 23.9 L MCHC 29.0 L RDW 19.2 H Plt Count 238 MPV 9.3 Neut % (Auto) 43.3 Lymph % (Auto) 41.6 Jones % (Auto) 9.8 H Eos % (Auto) 4.2 Baso % (Auto) 1.0 Neut # (Auto) 2.0 Lymph # (Auto) 1.9 Jones # (Auto) 0.5 Eos # (Auto) 0.2 Baso # (Auto) 0.0 Total Counted 50 Neutrophils % (Manual) 30 L Lymphocytes % (Manual) 58 H Monocytes % (Manual) 6 Eosinophils % (Manual) 4 H Basophils % (Manual) 2.0 H Platelet Estimate Normal RBC Morphology Not Reportable Hypochromasia 2+ Anisocytosis 1+ Microcytosis 1+ Blood Type Antibody Screen Crossmatch ([facility]) 12/17/18 16:24 WBC RBC Hgb Hct MCV MCH MCHC RDW Plt Count MPV Neut % (Auto) Lymph % (Auto) Jones % (Auto) Eos % (Auto) Baso % (Auto) Neut # (Auto) Lymph # (Auto) Jones # (Auto) Eos # (Auto) Baso # (Auto) Total Counted Neutrophils % (Manual) Lymphocytes % (Manual) Monocytes % (Manual) Eosinophils % (Manual) Basophils % (Manual) Platelet Estimate RBC Morphology Hypochromasia Anisocytosis Microcytosis Blood Type A Positive Antibody Screen Negative Crossmatch ([facility]) See Detail DS: Diagnosis - Discharge Diagnosis (1) Anemia Status: Acute (2) Chronic use of opiate drug for therapeutic purpose Status: Chronic (3) Recurrent depression Status: Chronic (4) GI bleed Status: Acute Discharge Plan - Patient Discharge Instructions ACTIVITY: Continue current activity DIET: continue same diet Patient Instructions: Anemia - Follow up Plan Follow up with: Hawk Davis MD [Primary Care Provider] - 12/21/18 Aman Fernandez MD [Staff Physician] - 1 week Disposition: Home, Self-Group Home Medications: Home Medications Medication Instructions Recorded Confirmed Type Escitalopram Oxalate [Lexapro] 20 mg PO DAILY 07/05/18 12/17/18 History Omeprazole [Omeprazole 20mg 20 mg PO BID 07/05/18 12/17/18 History Capsule] Simvastatin [Zocor] 40 mg PO HS 07/05/18 12/17/18 History Rizatriptan Benzoate [Rizatriptan] 10 mg PO NEEDED PRN 07/06/18 12/17/18 History ALPRAZolam [Xanax 1mg tab] 1 mg PO BIDP PRN 12/17/18 12/17/18 History Aspirin [Aspirin 81mg EC Tab] 81 mg PO DAILY 12/17/18 12/17/18 History Calcium Carbonate/Vitamin D3 2 each PO BID 12/17/18 12/17/18 History [Calcium 1,000 + D3 Caplet] Multivitamin [Multivitamins] 1 each PO DAILY 12/17/18 12/17/18 History Oxycodone HCl/Acetaminophen 1 each PO TID 12/17/18 12/17/18 History [Percocet 7.5-325 mg Tablet] Propranolol HCl 40 mg PO BID 12/17/18 12/17/18 History Quetiapine Fumarate 200 mg PO HS 12/17/18 12/17/18 History Vitamin E (Dl,Tocopheryl Acet) 400 unit PO DAILY 10/01/19 10/01/19 History [Vitamin E 400 IUnits capsule] Prescriptions/Medication Reconciliation: Continued Simvastatin [Zocor] 40 mg PO HS Omeprazole [Omeprazole 20mg Capsule] 20 mg PO BID Escitalopram Oxalate [Lexapro] 20 mg PO DAILY Rizatriptan Benzoate [Rizatriptan] 10 mg PO NEEDED PRN PRN Reason: migraines Oxycodone HCl/Acetaminophen [Percocet 7.5-325 mg Tablet] 1 each PO TID Quetiapine Fumarate 200 mg PO HS ALPRAZolam [Xanax 1mg tab] 1 mg PO BIDP PRN PRN Reason: Anxiety Calcium Carbonate/Vitamin D3 [Calcium 1,000 + D3 Caplet] 2 each PO BID Vitamin E (Dl,Tocopheryl Acet) [Vitamin E 400 IUnits capsule] 400 unit PO DAILY Propranolol HCl 40 mg PO BID Multivitamin [Multivitamins] 1 each PO DAILY Discontinued Aspirin [Aspirin 81mg EC Tab] 81 mg PO DAILY Other Amb Orders: Basic Metabolic Panel Time Frame: 12/21/18, Location: None Selected Complete Blood Count Auto Diff Time Frame: 12/21/18, Location: None Selected - Problem Reconciliation Problems Reviewed?: Yes
--- NOTE | 2018-12-19 08:04 | Progress Note ---
Subjective Patient reports: feels better Exam Vital signs and Labs for Last 24 Hours: Temp Pulse Resp BP Pulse Ox 98.1 F 67 16 145/66 H 98 12/19/18 04:00 12/19/18 04:00 12/19/18 04:00 12/19/18 04:00 12/19/18 04:00 Laboratory Results - last 24 hr 12/17/18 16:24: Blood Type A Positive, Antibody Screen Negative, Crossmatch ([facility]) See Detail 12/18/18 04:50: Total Counted 50, Neutrophils % (Manual) 30 L, Lymphocytes % (Manual) 58 H, Monocytes % (Manual) 6, Eosinophils % (Manual) 4 H, Basophils % (Manual) 2.0 H, Platelet Estimate Normal, RBC Morphology Not Reportable, Hypochromasia 2+, Anisocytosis 1+, Microcytosis 1+ 12/18/18 16:40: Hgb 8.8 L D, Hct 29.7 L 12/19/18 06:35: WBC 4.6 L, RBC 3.69 L D, Hgb 8.8 L, Hct 30.5 L, MCV 82.5, MCH 23.9 L, MCHC 29.0 L, RDW 19.2 H, Plt Count 238, MPV 9.3, Neut % (Auto) 43.3, Lymph % (Auto) 41.6, [place] % (Auto) 9.8 H, Eos % (Auto) 4.2, Baso % (Auto) 1.0, Neut # (Auto) 2.0, Lymph # (Auto) 1.9, [place] # (Auto) 0.5, Eos # (Auto) 0.2, Baso # (Auto) 0.0 12/19/18 06:35: Sodium 142, Potassium 4.2, Chloride 107, Carbon Dioxide 28, Anion Gap 11.2, BUN 14 D, Creatinine 0.55, Estimated Creat Clear 61, Estimated GFR 107, Est GFR ( Amer) 130, Glucose 98, Calcium 8.7 I & O for Last 24 hours: Intake & Output 12/16/18 12/17/18 12/18/18 12/19/18 11:59 11:59 11:59 11:59 Intake Total 2403 / 2403 569 / 569 Balance 2403 / 2403 569 / 569 Weight 179 lb 2.997 oz - Constitutional no acute distress Progress Note: A&P (1) Anemia Status: Acute Assessment and plan: Plan for outpatient management. Likely will need small bowel evaluation with possible colonoscopy. Current Visit: No (2) Chronic use of opiate drug for therapeutic purpose Status: Chronic Current Visit: No (3) Recurrent depression Status: Chronic Current Visit: No (4) GI bleed Status: Acute Current Visit: Yes
== END 2018-12-19 09:10 | disposition home or self-care (01) | DRG 812 ==
LOC: RAD 10:55 → 2ND 10:55 → OBSVTOIN 12:40 → 2ND 13:32
PROVIDERS: ADMIT Internal Medicine Adolescent Medicine; ATTEND Internal Medicine Adolescent Medicine
CPT/HCPCS: 36415; 77067; 80048; 80053; 83010; 83615; 83735; 84436; 84443; 84479; 85007; 85014; 85018; 85025; 86850; 88305; G0202; P9016

== ENCOUNTER → 2018-12-21 09:55 | Outpatient (CLI) | payer MEDICARE, SELFPAY ==
[2018-12-21 10:16] LABS: Eosinophils # 0.2 K/mm3 (0.0-0.4); Eosinophils % 4.9 % (0.1-12.0); Hematocrit 33.7 % (37.0-47.0); Hemoglobin 9.7 g/dL (12.2-16.2); Lymphocytes # 1.4 K/mm3 (0.7-4.5); Lymphocytes % 33.1 % (10-50); Mean Corpuscular HGB Conc 28.9 g/dL (31.8-35.4); Mean Corpuscular Hemoglobin 24.1 pg (27.0-31.2); Mean Corpuscular Volume 83.6 fl (81-99); Mean Platelet Volume 10.7 fl (7.4-10.4); Monocytes # 0.4 K/mm3 (0.1-1.0); Monocytes % 9.9 % (1.7-9.3); Neutrophils # 2.1 K/mm3 (1.8-7.8); Platelet Count 283 K/mm3 (142-424); Red Blood Count 4.04 M/mm3 (4.20-5.40); Red Cell Distribution Width 19.7 % (11.5-17.5); White Blood Count 4.2 K/mm3 (4.8-10.8)
[2018-12-21 11:13] LABS: Anion Gap 13.2 mEq/L (5-15); Blood Urea Nitrogen 19 mg/dL (7-18); Carbon Dioxide 25 mmol/L (21.0-32.0); Chloride 102 mmol/L (98-107); Creatinine,Serum 0.77 mg/dL (0.55-1.02); Estimated Glomerular Filt Rate 73 ml/min (>60); GFR (African American) 88 ML/MIN (>60); Glucose 122 mg/dL (74-106); Potassium 4.2 mmoL/L (3.5-5.1); Sodium 136 mmol/L (136-145)
== END ==
PROVIDERS: Visit Provider Internal Medicine Adolescent Medicine
DX: D64.9 Anemia, unspecified (principal)
CPT/HCPCS: 36415; 80048; 85025

== ENCOUNTER → 2018-12-26 08:44 | Outpatient (CLI) | payer MEDICARE, SELFPAY ==
--- NOTE | 2018-12-26 08:45 | FL_ITS ---
PROCEDURE: FL UPPER GI SMALL BOWEL CLINICAL INDICATION: anemia COMPARISON: No exams were available for comparison TECHNIQUE: FLUOROSCOPY TIME : 3 minutes and 49 seconds FINDINGS: There is dysmotility of the esophagus consistent with presbyesophagus. There is a medium-sized hiatal hernia which does not reduce during the course of the exam. The stomach and duodenum have an unremarkable appearance. No ulcer or mass is evident. Examination of the small bowel is unremarkable. No mucosal thickening, obstructing lesions, or masses are evident. Spot views of the terminal ileum are unremarkable. The appendix did fill with contrast. IMPRESSION: 1. Presbyesophagus with moderate-sized hiatal hernia. 2. Otherwise negative upper GI and small-bowel follow-through Dictated by: Jarvis Izquierdo MD 12/26/2018 18:13 Electronically signed by Jarvis Izquierdo MD in [place] 12/26/2018 18:13
== END ==
PROVIDERS: PCP Internal Medicine Adolescent Medicine; Visit Provider Surgery
DX: R13.10 Dysphagia, unspecified (principal); D64.9 Anemia, unspecified
CPT/HCPCS: 74245

== ENCOUNTER → 2019-01-10 15:08 | Outpatient (CLI) | payer MEDICARE, SELFPAY ==
[2019-01-10 15:26] LABS: Basophils # 0.1 K/mm3 (0-0.2); Basophils % 0.8 % (0.1-2.0); Eosinophils # 0.1 K/mm3 (0.0-0.4); Eosinophils % 0.6 % (0.1-12.0); Hematocrit 35.3 % (37.0-47.0); Hemoglobin 10.3 g/dL (12.2-16.2); Lymphocytes # 1.8 K/mm3 (0.7-4.5); Lymphocytes % 24.4 % (10-50); Mean Corpuscular HGB Conc 29.3 g/dL (31.8-35.4); Mean Corpuscular Hemoglobin 24.2 pg (27.0-31.2); Mean Corpuscular Volume 82.8 fl (81-99); Mean Platelet Volume 9.1 fl (7.4-10.4); Monocytes # 0.4 K/mm3 (0.1-1.0); Monocytes % 5.8 % (1.7-9.3); Neutrophils # 5.1 K/mm3 (1.8-7.8); Neutrophils % 68.5 % (37.0-80.0); Platelet Count 294 K/mm3 (142-424); Red Blood Count 4.27 M/mm3 (4.20-5.40); Red Cell Distribution Width 18.4 % (11.5-17.5); White Blood Count 7.4 K/mm3 (4.8-10.8)
[2019-01-10 16:27] LABS: Alanine Aminotransferase 15 U/L (12-78); Albumin/Globulin Ratio 1.4 (1.1-1.8); Alkaline Phosphatase 93 U/L (46-116); Anion Gap 13.1 mEq/L (5-15); Aspartate Amino Transferase 10 U/L (15-37); Bilirubin,Total 0.3 mg/dL (0.2-1.0); Blood Urea Nitrogen 21 mg/dL (7-18); Calcium 8.9 mg/dL (8.5-10.1); Carbon Dioxide 26 mmol/L (21.0-32.0); Chloride 105 mmol/L (98-107); Creatinine,Serum 0.89 mg/dL (0.55-1.02); Estimated Glomerular Filt Rate 62 ml/min (>60); GFR (African American) 75 ML/MIN (>60); Globulin 2.9 gm/dl (1.3-3.2); Glucose 107 mg/dL (74-106); Potassium 4.1 mmoL/L (3.5-5.1); Sodium 140 mmol/L (136-145); Total Protein,Serum 6.9 gm/dL (6.4-8.2)
== END ==
PROVIDERS: Visit Provider Internal Medicine Adolescent Medicine
DX: E78.6 Lipoprotein deficiency (principal); D50.0 Iron deficiency anemia secondary to blood loss (chronic)
CPT/HCPCS: 36415; 80053; 85025

== ENCOUNTER → 2019-03-31 08:39 | Outpatient (CLI) | payer MEDICARE, SELFPAY ==
--- NOTE | 2019-03-31 08:54 | XR_ITS ---
PROCEDURE: XR LUMBAR SPINE MIN 4V CLINICAL INDICATION: Posttraumatic pain COMPARISON: RANDY [place].[id number](HYPAQ from 08/03/2015 ABDPELW/WO CT ABD PELVIS W/WO CONTRAST from 09/11/2016 FINDINGS: Mild lumbar scoliosis convex left. There is normal alignment. There is degenerative disc disease from L2-L5. There is mild wedging of the L1 and L2 vertebral bodies which appears chronic compared to a prior CT scan of 09/11/2016. There is mild retrolisthesis of L3 on L4 of 4 mm and mild anterolisthesis of L5 on S1 2-3 mm. No acute fracture or dislocation. There are facet arthritic changes in the lower lumbar spine and S1. IMPRESSION: 1. No acute fracture. 2. Lumbar spondylosis with scoliosis. Dictated by: Jarvis Izquierdo MD 03/31/2019 09:28 Electronically signed by Jarvis Izquierdo MD in [place] 03/31/2019 09:28
--- NOTE | 2019-03-31 08:54 | XR_ITS ---
PROCEDURE: XR SACROILIAC JOINT BI MIN 3V CLINICAL INDICATION: BILAT LOW BACK PAIN WITHOUT SCIATICA COMPARISON: No exams were available for comparison FINDINGS: The SI joints have an unremarkable appearance. No sclerosis effusion or lytic lesions evident. No significant degenerative change of the SI joints. IMPRESSION: Negative SI joints Dictated by: Jarvis Izquierdo MD 03/31/2019 09:29 Electronically signed by Jarvis Izquierdo MD in [place] 03/31/2019 09:29
[2019-03-31 09:17] LABS: Eosinophils # 0.2 K/mm3 (0.0-0.4); Eosinophils % 3.7 % (0.1-12.0); Hematocrit 35.8 % (37.0-47.0); Hemoglobin 10.5 g/dL (12.2-16.2); Lymphocytes # 2.2 K/mm3 (0.7-4.5); Lymphocytes % 54.2 % (10-50); Mean Corpuscular HGB Conc 29.3 g/dL (31.8-35.4); Mean Corpuscular Volume 81.8 fl (81-99); Monocytes # 0.3 K/mm3 (0.1-1.0); Monocytes % 6.6 % (1.7-9.3); Neutrophils # 1.4 K/mm3 (1.8-7.8); Neutrophils % 34.6 % (37.0-80.0); Platelet Count 309 K/mm3 (142-424); Red Blood Count 4.37 M/mm3 (4.20-5.40); Red Cell Distribution Width 18.1 % (11.5-17.5); White Blood Count 4.1 K/mm3 (4.8-10.8)
[2019-03-31 09:37] LABS: MANUAL DIFFERENTIAL MANUAL DIFFERENTIAL (MANUAL DIFF)
[2019-03-31 10:11] LABS: Alanine Aminotransferase 14 U/L (12-78); Albumin Level 4.1 gm/dL (3.4-5.0); Albumin/Globulin Ratio 1.5 (1.1-1.8); Alkaline Phosphatase 95 U/L (46-116); Anion Gap 12.7 mEq/L (5-15); Aspartate Amino Transferase 6 U/L (15-37); Bilirubin,Total 0.3 mg/dL (0.2-1.0); Blood Urea Nitrogen 16 mg/dL (7-18); Carbon Dioxide 28 mmol/L (21.0-32.0); Chloride 102 mmol/L (98-107); Creatinine,Serum 0.73 mg/dL (0.55-1.02); Estimated Glomerular Filt Rate 78 ml/min (>60); Free Thyroxine Index 2.4 ug/dL (5.93-13.13); GFR (African American) 94 ML/MIN (>60); Globulin 2.7 gm/dl (1.3-3.2); Glucose 106 mg/dL (74-106); Potassium 4.7 mmoL/L (3.5-5.1); Sodium 138 mmol/L (136-145); T4 (Thyroxine) 6.3 ug/dl (4.7-13.3); Thyroid Stimulating Hormone 0.02 uIU/ml (0.358-3.740); Total Protein,Serum 6.8 gm/dL (6.4-8.2); Triiodothryronine (T3) Uptake 38 % (31-39)
[2019-03-31 10:12] LABS: Eosinophils % 2 % (0-3); Hypochromasia 2+; Lymphocytes % 55 % (10-50); Monocytes % 11 % (2-9); Neutrophils % 32 % (42-76); Platelet Estimate Normal; Total Cells Counted 100
== END ==
PROVIDERS: Visit Provider Internal Medicine Adolescent Medicine
DX: E05.90 Thyrotoxicosis, unspecified without thyrotoxic crisis or storm (principal); D50.0 Iron deficiency anemia secondary to blood loss (chronic); M54.5 Low back pain
CPT/HCPCS: 36415; 72110; 72202; 80053; 84436; 84443; 84479; 85007; 85025

== ENCOUNTER → 2019-06-16 12:34 | Outpatient (CLI) | payer MEDICARE, SELFPAY ==
--- NOTE | 2019-06-16 | XR_ITS ---
PROCEDURE: XR RIBS RT 2V CLINICAL INDICATION: CONTUSION OF RT RIBS COMPARISON: No exams were available for comparison FINDINGS: There are nondisplaced fractures of posterior lateral 6th and 7th ribs. There is no appreciable pneumothorax or hemo thorax. There is no pulmonary contusion. IMPRESSION: Nondisplaced rib fractures. Dictated by: Christian Bagley 06/16/2019 14:51 Electronically signed by Christian Bagley in [place] 06/16/2019 14:51
--- NOTE | 2019-06-16 12:39 | XR_ITS ---
PROCEDURE: XR CHEST 2V CLINICAL HISTORY: CONTUSION OF RT RIBS COMPARISON: CXR CHEST(2 VIEWS-NOT PORTABLE) from 08/13/2014 FINDINGS: The heart is not enlarged. There is an atherosclerotic aorta. Lungs are clear of acute infiltrate. Calcified granulomas are seen in the right lung. No acute bony abnormalities. IMPRESSION: No acute findings. Dictated by: Christian Bagley 06/16/2019 14:46 Electronically signed by Christian Bagley in [place] 06/16/2019 14:46
== END ==
PROVIDERS: PCP Internal Medicine Adolescent Medicine; Visit Provider Internal Medicine Adolescent Medicine
DX: S20.212A Contusion of left front wall of thorax, initial encounter (principal)
CPT/HCPCS: 71046; 71100

== ENCOUNTER → 2019-09-17 11:20 | Outpatient (CLI) | payer MEDICARE, SELFPAY ==
[2019-09-17 11:36] LABS: Basophils # 0.2 K/mm3 (0-0.2); Basophils % 2.7 % (0.1-2.0); Eosinophils # 0.5 K/mm3 (0.0-0.4); Eosinophils % 6.8 % (0.1-12.0); Hematocrit 31.2 % (37.0-47.0); Hemoglobin 8.7 g/dL (12.2-16.2); Lymphocytes # 2.9 K/mm3 (0.7-4.5); Lymphocytes % 43.8 % (10-50); Mean Corpuscular HGB Conc 27.9 g/dL (31.8-35.4); Mean Corpuscular Volume 82.3 fl (81-99); Mean Platelet Volume 12.3 fl (7.4-10.4); Monocytes # 0.4 K/mm3 (0.1-1.0); Monocytes % 5.4 % (1.7-9.3); Neutrophils # 2.8 K/mm3 (1.8-7.8); Neutrophils % 41.4 % (37.0-80.0); Platelet Count 216 K/mm3 (142-424); Red Blood Count 3.79 M/mm3 (4.20-5.40); Red Cell Distribution Width 20.7 % (11.5-17.5); White Blood Count 6.7 K/mm3 (4.8-10.8)
[2019-09-17 12:02] LABS: Chloride 101 mmol/L (98-107)
[2019-09-17 12:03] LABS: Potassium 4.6 mmoL/L (3.5-5.1); Sodium 137 mmol/L (136-145)
[2019-09-17 12:05] LABS: Alanine Aminotransferase 11 U/L (12-78); Alkaline Phosphatase 65 U/L (38-126); Aspartate Amino Transferase 17 U/L (14-36); Bilirubin,Total 0.2 mg/dl (0.2-1.3); Blood Urea Nitrogen 21 mg/dl (7-17); Estimated Glomerular Filt Rate 81 ml/min (>60); GFR (African American) 98 ML/MIN (>60)
[2019-09-17 12:06] LABS: Albumin Level 4.1 g/dl (3.5-5.0); Albumin/Globulin Ratio 1.8 (1.1-1.8); Anion Gap 10.6 mEq/L (5-15); Calcium 9.1 mg/dl (8.4-10.2); Carbon Dioxide 30 mmol/L (22.0-30.0); Globulin 2.3 g/dL (1.3-3.2); Glucose 79 mg/dl (74-100); Total Protein,Serum 6.4 g/dl (6.3-8.2)
== END ==
PROVIDERS: Visit Provider Internal Medicine Adolescent Medicine
DX: K92.1 Melena (principal)
CPT/HCPCS: 36415; 80053; 85025

== ENCOUNTER → 2019-09-19 08:49 | Outpatient (CLI) | payer MEDICARE, SELFPAY ==
[2019-09-19 09:34] LABS: Basophils % 0.8 % (0.1-2.0); Eosinophils # 0.2 K/mm3 (0.0-0.4); Eosinophils % 5.7 % (0.1-12.0); Hematocrit 29.5 % (37.0-47.0); Hemoglobin 8.9 g/dL (12.2-16.2); Lymphocytes # 2.3 K/mm3 (0.7-4.5); Lymphocytes % 58.6 % (10-50); Mean Corpuscular HGB Conc 30.2 g/dL (31.8-35.4); Mean Corpuscular Hemoglobin 23.2 pg (27.0-31.2); Mean Corpuscular Volume 76.7 fl (81-99); Mean Platelet Volume 7.6 fl (7.4-10.4); Monocytes # 0.3 K/mm3 (0.1-1.0); Monocytes % 6.9 % (1.7-9.3); Neutrophils # 1.1 K/mm3 (1.8-7.8); Neutrophils % 27.8 % (37.0-80.0); Platelet Count 240 K/mm3 (142-424); Red Blood Count 3.84 M/mm3 (4.20-5.40); Red Cell Distribution Width 18.8 % (11.5-17.5); White Blood Count 3.9 K/mm3 (4.8-10.8)
[2019-09-19 09:36] LABS: MANUAL DIFFERENTIAL MANUAL DIFFERENTIAL (MANUAL DIFF)
[2019-09-19 14:23] LABS: Anisocytosis 1+; Eosinophils % 9 % (0-3); Lymphocytes % 66 % (10-50); Microcytosis 1+; Monocytes % 6 % (2-9); Neutrophils % 19 % (42-76); Platelet Estimate Normal; Total Cells Counted 100
== END ==
PROVIDERS: Visit Provider Internal Medicine Adolescent Medicine
DX: D64.9 Anemia, unspecified (principal)
CPT/HCPCS: 36415; 85007; 85025

== ENCOUNTER → 2019-10-07 10:35 | Outpatient (CLI) | payer MEDICARE, SELFPAY ==
[2019-10-07 11:02] LABS: Basophils % 0.4 % (0.1-2.0); Eosinophils # 0.4 K/mm3 (0.0-0.4); Eosinophils % 6.1 % (0.1-12.0); Hematocrit 30.1 % (37.0-47.0); Lymphocytes # 1.9 K/mm3 (0.7-4.5); Lymphocytes % 29.5 % (10-50); Mean Corpuscular HGB Conc 29.9 g/dL (31.8-35.4); Mean Corpuscular Hemoglobin 22.7 pg (27.0-31.2); Mean Corpuscular Volume 75.8 fl (81-99); Mean Platelet Volume 9.9 fl (7.4-10.4); Monocytes # 0.5 K/mm3 (0.1-1.0); Monocytes % 7.9 % (1.7-9.3); Neutrophils # 3.5 K/mm3 (1.8-7.8); Neutrophils % 56.1 % (37.0-80.0); Platelet Count 224 K/mm3 (142-424); Red Blood Count 3.97 M/mm3 (4.20-5.40); Red Cell Distribution Width 17.5 % (11.5-17.5); White Blood Count 6.3 K/mm3 (4.8-10.8)
== END ==
PROVIDERS: Visit Provider Internal Medicine Adolescent Medicine
DX: D64.9 Anemia, unspecified (principal)
CPT/HCPCS: 36415; 85025

== ENCOUNTER → 2019-11-11 10:30 | Outpatient (CLI) | payer MEDICARE, SELFPAY ==
[2019-11-11 10:52] LABS: Basophils # 0.1 K/mm3 (0-0.2); Basophils % 1.2 % (0.1-2.0); Eosinophils # 0.5 K/mm3 (0.0-0.4); Lymphocytes # 2.8 K/mm3 (0.7-4.5); Lymphocytes % 47.6 % (10-50); Mean Corpuscular HGB Conc 29.9 g/dL (31.8-35.4); Mean Corpuscular Volume 76.8 fl (81-99); Monocytes # 0.4 K/mm3 (0.1-1.0); Neutrophils # 2.1 K/mm3 (1.8-7.8); Neutrophils % 35.2 % (37.0-80.0); Platelet Count 245 K/mm3 (142-424); Red Blood Count 3.91 M/mm3 (4.20-5.40); Red Cell Distribution Width 17.8 % (11.5-17.5); White Blood Count 5.9 K/mm3 (4.8-10.8)
== END ==
PROVIDERS: Visit Provider Internal Medicine Adolescent Medicine
DX: D64.9 Anemia, unspecified (principal)
CPT/HCPCS: 36415; 85025

== ENCOUNTER → 2020-01-05 10:12 | Outpatient (CLI) | payer MEDICARE, SELFPAY ==
--- NOTE | 2020-01-05 10:25 | XR_ITS ---
PROCEDURE: XR RIBS LT MIN 3V W CXR1V CLINICAL INDICATION: LT RIB PAIN COMPARISON: CR CXR CHEST(2 VIEWS-NOT PORTABLE) from 08/13/2014 CR XR CHEST 2V from 06/16/2019 FINDINGS: The lung narayan are well expanded and appear clear of infiltrate. There is no pneumothorax. There is a double density seen through the cardiac shadow consistent with moderate sized hiatal hernia. There is minimal haziness at the left costophrenic angle probably representing combination of atelectasis and very minimal pleural fluid. There is a slightly displaced fracture of the left 10th rib posterior axillary line. The remaining left ribs appear intact. IMPRESSION: Fracture left 10th rib, questionable minimal atelectasis at the left costophrenic angle Dictated by: Dr. Dennis Whitman MD 01/05/2020 11:05 Dr. Dennis Whitman MD in [place] 01/05/2020 11:05
[2020-01-05 11:16] LABS: Basophils % 0.5 % (0.1-2.0); Eosinophils # 0.2 K/mm3 (0.0-0.4); Eosinophils % 3.9 % (0.1-12.0); Hematocrit 27.9 % (37.0-47.0); Hemoglobin 8.2 g/dL (12.2-16.2); Lymphocytes # 1.9 K/mm3 (0.7-4.5); Lymphocytes % 41.7 % (10-50); Mean Corpuscular HGB Conc 29.2 g/dL (31.8-35.4); Mean Corpuscular Volume 75.5 fl (81-99); Mean Platelet Volume 8.2 fl (7.4-10.4); Monocytes # 0.4 K/mm3 (0.1-1.0); Monocytes % 7.9 % (1.7-9.3); Neutrophils # 2.1 K/mm3 (1.8-7.8); Platelet Count 324 K/mm3 (142-424); Red Cell Distribution Width 20.2 % (11.5-17.5); White Blood Count 4.5 K/mm3 (4.8-10.8)
[2020-01-05 12:17] LABS: Alanine Aminotransferase 12 U/L (12-78); Albumin Level 3.9 g/dl (3.5-5.0); Albumin/Globulin Ratio 1.5 (1.1-1.8); Alkaline Phosphatase 76 U/L (38-126); Anion Gap 13.2 mEq/L (5-15); Aspartate Amino Transferase 18 U/L (14-36); Bilirubin,Total 0.3 mg/dl (0.2-1.3); Blood Urea Nitrogen 21 mg/dl (7-17); Calcium 9.3 mg/dl (8.4-10.2); Carbon Dioxide 26 mmol/L (22.0-30.0); Chloride 106 mmol/L (98-107); Estimated Glomerular Filt Rate 120 ml/min (>60); GFR (African American) 145 ML/MIN (>60); Globulin 2.6 g/dL (1.3-3.2); Glucose 114 mg/dl (74-100); Potassium 4.2 mmoL/L (3.5-5.1); Sodium 141 mmol/L (136-145); Total Protein,Serum 6.5 g/dl (6.3-8.2)
== END ==
PROVIDERS: Visit Provider Internal Medicine Adolescent Medicine
DX: R07.81 Pleurodynia (principal); K92.1 Melena
CPT/HCPCS: 36415; 71101; 80053; 85025

== ENCOUNTER 2020-01-06 08:48 | Outpatient (CLI) | payer MEDICARE, SELFPAY ==
[2020-01-06 08:49] VITALS: BMI 26.6
--- NOTE | 2020-01-06 10:32 | PC.NURSE ---
1032-pt will come back tomorrow to get transfusion, ok per , pt has antibodies in blood and will take all day to get blood ready.
== END 2020-01-06 10:32 | disposition home or self-care (01) ==
LOC: INF 08:48
PROVIDERS: PCP Internal Medicine Adolescent Medicine; Visit Provider Internal Medicine Adolescent Medicine
DX: D50.0 Iron deficiency anemia secondary to blood loss (chronic) (principal)
CPT/HCPCS: 86850; 86870

== ENCOUNTER 2020-01-07 08:48 | Outpatient (CLI) | payer MEDICARE, SELFPAY ==
[2020-01-07] VITALS (20 sets, daily range): BP systolic 128–156; BP diastolic 56–80; PULSE 73–85; RESP 18–78; TEMP 36.6–37; O2SAT 95–97; BMI 26.6
[2020-01-07 14:42] LABS: Hematocrit 33.6 % (37.0-47.0); Hemoglobin 10.2 g/dL (12.2-16.2)
== END 2020-01-07 14:45 | disposition home or self-care (01) ==
LOC: INF 08:48
PROVIDERS: PCP Internal Medicine Adolescent Medicine; Visit Provider Internal Medicine Adolescent Medicine
DX: D64.89 Other specified anemias (principal)
CPT/HCPCS: 36430; 85014; 85018; P9016

== ENCOUNTER → 2020-03-03 08:16 | Outpatient (CLI) | payer MEDICARE, SELFPAY ==
[2020-03-03 10:34] LABS: Coronavirus 19 IgG Antibody Negative (Negative); Coronavirus 19 IgM Antibody Negative (Negative)
[2020-03-04 11:39] LABS: Hematocrit 30.4 % (37.0-47.0); Hemoglobin 9.3 g/dL (12.2-16.2); Mean Corpuscular HGB Conc 30.7 g/dL (31.8-35.4); Mean Corpuscular Hemoglobin 24.3 pg (27.0-31.2); Mean Corpuscular Volume 79.2 fl (81-99); Platelet Count 317 K/mm3 (142-424); Red Blood Count 3.84 M/mm3 (4.20-5.40); White Blood Count 4.6 K/mm3 (4.8-10.8)
[2020-03-04 11:40] LABS: Basophils % 0.5 % (0.1-2.0); Eosinophils # 0.1 K/mm3 (0.0-0.4); Eosinophils % 1.2 % (0.1-12.0); Lymphocytes % 42.5 % (10-50); Mean Platelet Volume 8.6 fl (7.4-10.4); Monocytes # 0.3 K/mm3 (0.1-1.0); Monocytes % 7.3 % (1.7-9.3); Neutrophils # 2.2 K/mm3 (1.8-7.8); Neutrophils % 48.5 % (37.0-80.0)
== END ==
PROVIDERS: Internal Medicine Adolescent Medicine; Visit Provider Internal Medicine Gastroenterology
DX: D50.0 Iron deficiency anemia secondary to blood loss (chronic) (principal)
CPT/HCPCS: 36415; 85025; 86328

== ENCOUNTER 2020-03-05 08:24 | Day surgery (SDC) | payer MEDICARE, SELFPAY ==
[2020-02-26 14:11] VITALS: BMI 27.3
[2020-03-05] VITALS (11 sets, daily range): BP systolic 115–154; BP diastolic 54–84; PULSE 72–90; RESP 16–18; TEMP 36.5–36.6; O2SAT 96–99
--- NOTE | 2020-03-05 09:41 | HMH.ANESCL ---
[facility] Anesthesia Checklist - Patient Identification Patient Identification: Arm Band, Verbal (Name & ) - Structural Data Admitted From: Home Planned Operative Procedure/s: EGD, enteroscopy Consent for Planned Operative Procedure(s) Verified: Yes Verified Documents: Surgical Consent, History and Physical - NPO Status Verified Time NPO: 00:00 - Chart Verification Results Verified: CBC, BMP - Additional verifications Anesthesia Reactions: No Hx Blood Transfusions: No Blood Transfusion Reaction: No - Airway Assessment C-Spine Mobility Assessed: Yes TMJ Mobility Assessed: Yes Dentition: Good Dentition - Neurological Assessment Level of Consciousness: Awake, Alert, Appropriate, Follows Commands Hx Seizures: No Numbness or tingling in extremities: No - Anesthesia Plan Anesthesia Risk discussed: Yes Anesthesia Plan: Verified ASA Class: II Anesthesia Type: MAC [facility] History I have reviewed the patient's past medical history: Yes Medical History: Reports:: Anxiety, Depression, Gastroesophageal Reflux Disease(GERD), Hyperlipidemia, Hypertension Denies:: Cancer, Diabetes Mellitus Type 1, Diabetes Mellitus Type 2, Internal Pacemaker, MRSA, Seizures *Have you ever received a pneumonia vaccine?: Yes *Have you received a flu vaccine this season?: Yes Other Medical History: Reports: Anemia, Cataracts, Hypothyroidism, Thyroid Disease. Denies: Blood Transfusion Reaction Anesthesia experience/problems:: None Laterality Cases: Bilateral: Cataract Other Surgeries: Yes: Cholecystectomy, Colonoscopy, EGD, Hysterectomy-Total, Other. No: Pacemaker Amputation: No Fractures: No - *Social History Last grade of school completed: Some college Smoking Status: Never smoker Alcohol Intake: never Alcohol Intake Frequency:: holidays/special occasions only Substance Use Type: denies use *Occupational Status:: retired Housing: house Household Members: none *Travel in the last 8 weeks: None - Psychiatric History Pschychiatric History:: Reports:: Anxiety, Depression, Post Traumatic Stress Disorder Family Hx:: No significant family history
--- NOTE | 2020-03-05 10:02 | P.PCN_ITS ---
[facility] Procedure Note Procedure Note:: Small bowel enteroscopy procedure Report: Small bowel enteroscopy with cold biopsies Endoscopost: Louis Mullins II, MD Referring Physician: Hawk Davis M.D. Date of Procedure: March 05, 2020 Equipment: Olympus PCF 180 pediatric colonoscope Sedation: MAC sedation Indications: Mrs. Campuzano is a 79-year-old female with chronic iron deficiency anemia. Approximately a year ago, she received 4 units of PRBCs. She also had 2 units of PRBCs 3 weeks ago. She did take baby aspirin which was discontinued. She reports no use of NSAIDs or anticoagulation. She does get some intermittent melena. She also gets some dyspnea on exertion. She has no abdominal pain. She reports no heartburn, reflux or dysphagia. She does have some chronic constipation which may alternate with diarrhea. She feels some of this is related to her opiate pain medication (Percocet) for chronic back pain. The patient did have diagnostic panendoscopy by me in May 2016. At that time, she did have a Schatzki's ring that was dilated and some reactive gastropathy and small hiatal hernia. Her colonoscopy revealed 2 small benign polyps (tubular adenomas x2) which were removed and she had internal hemorrhoids that were banded (due to bleeding and prolapse). She does have chronic GERD. The patient did have video capsule enteroscopy/PillCam at the [facility] in January 2019. She did have multiple nonbleeding angiodysplasias seen in the mid and proximal small intestine. The patient does have some intermittent dark stools or melena. She is not on iron therapy. Procedure: Prior to the procedure, a history and physical exam was performed, and patient's medications and allergies were reviewed. The risks, benefits and alternatives of the sedation and procedure were discussed with the patient. All questions were answered and informed consent was obtained. The patient was brought to the procedure room. Patient identification and proposed procedure were verified by the physician and the nurse. The patient was placed in a left lateral decubitus position and the scope was passed under direct vision. Throughout the procedure, the patient's blood pressure, pulse, and oxygen saturations were monitored continuously. The upper GI endoscopy was accomplished without difficulty. The patient tolerated the procedure well. Findings: The scope was passed directly into the upper esophagus and advanced to the proximal to mid jejunum. Upon withdrawal, there was lymphoid stasis but there was no evidence of angiodysplasias identified in the proximal jejunum or duodenum. Biopsies were obtained from the duodenum to rule out celiac disease. The scope was withdrawn through a normal pylorus into the stomach. There was minimal reactive gastropathy of the antrum. Upon retroflexion there was a 4 cm hiatal hernia with linear Oniel's erosions. The scope was then withdrawn into the esophagus. There was no evidence of reflux esophagitis or Rodriguez's. There were tertiary contractions and evidence of mild presbyesophagus/esophageal dysmotility. Impression: 1. Medium sized hiatal hernia (4 cm) with linear Oniel's erosions 2. Nonerosive GERD with presbyesophagus Plan: I do suspect that the patient's iron deficiency anemia is more likely related to the Oniel's erosions/superficial ulceration. These do commonly cause chronic bleeding and lead to iron deficiency anemia. I would recommend PPI therapy and iron supplementation. If this does persist, I would consider m inimally invasive hiatal hernia repair. I would also treat the patient's obstipation.
[2020-03-05 12:01] LABS: Iron 19 ug/dL (37-170)
[2020-03-05 12:11] LABS: Total Iron Binding Capacity 399 ug/dL (265-497)
== END 2020-03-05 12:15 | disposition home or self-care (01) ==
LOC: OUTP 08:26
PROVIDERS: PCP Internal Medicine Adolescent Medicine; Visit Provider Internal Medicine Gastroenterology
PROC: (CPT 44360; principal; 2020-03-05 09:30)
DX: K44.9 Diaphragmatic hernia without obstruction or gangrene (principal); K25.9 Gastric ulcer, unspecified as acute or chronic, without hemorrhage or perforation; K21.9 Gastro-esophageal reflux disease without esophagitis; K22.8 Other specified diseases of esophagus; D50.9 Iron deficiency anemia, unspecified; K92.1 Melena; Z87.19 Personal history of other diseases of the digestive system; Z86.010 Personal history of colon polyps; I10 Essential (primary) hypertension; E78.5 Hyperlipidemia, unspecified; E03.9 Hypothyroidism, unspecified; F41.9 Anxiety disorder, unspecified
CPT/HCPCS: 44361; 83540; 83550; 88305; Q0138

== ENCOUNTER 2020-03-08 13:52 | Outpatient (CLI) | payer MEDICARE, SELFPAY ==
[2020-03-08 14:11] VITALS: BP 136/68; PULSE 84; RESP 20; TEMP 36.8; O2SAT 98
[2020-03-08 14:55] VITALS: BP 140/73; PULSE 79; RESP 18; TEMP 36.8; O2SAT 99
== END 2020-03-08 15:00 | disposition home or self-care (01) ==
LOC: INF 13:52
PROVIDERS: Visit Provider Internal Medicine Gastroenterology
DX: D64.9 Anemia, unspecified (principal)
CPT/HCPCS: 96365; Q0138

== ENCOUNTER → 2020-04-15 16:07 | Outpatient (CLI) | payer MEDICARE, SELFPAY ==
[2020-04-15 17:21] LABS: Basophils % 0.7 % (0.1-2.0); Eosinophils # 0.1 K/mm3 (0.0-0.4); Eosinophils % 1.3 % (0.1-12.0); Hematocrit 42.4 % (37.0-47.0); Lymphocytes # 2.2 K/mm3 (0.7-4.5); Lymphocytes % 40.1 % (10-50); Mean Corpuscular HGB Conc 30.7 g/dL (31.8-35.4); Mean Corpuscular Hemoglobin 28.4 pg (27.0-31.2); Mean Corpuscular Volume 92.5 fl (81-99); Mean Platelet Volume 7.9 fl (7.4-10.4); Monocytes # 0.3 K/mm3 (0.1-1.0); Monocytes % 4.8 % (1.7-9.3); Neutrophils # 2.9 K/mm3 (1.8-7.8); Platelet Count 229 K/mm3 (142-424); Red Blood Count 4.58 M/mm3 (4.20-5.40); White Blood Count 5.4 K/mm3 (4.8-10.8)
[2020-04-17 12:20] LABS: HIV Screen 4th Generation wRfx Non Reactive (Non Reactive)
[2020-04-18 22:02] LABS: HIV 1 RNA, Real time PCR <20 copies/mL (.)
== END ==
PROVIDERS: Visit Provider Internal Medicine Adolescent Medicine
DX: D50.0 Iron deficiency anemia secondary to blood loss (chronic) (principal); Z20.6 Contact with and (suspected) exposure to human immunodeficiency virus [HIV]; Z11.4 Encounter for screening for human immunodeficiency virus [HIV]
CPT/HCPCS: 36415; 85025; 86703; 87536; G0432

== ENCOUNTER → 2020-05-10 14:49 | Outpatient (CLI) | payer MEDICARE, SELFPAY ==
--- NOTE | 2020-05-10 15:01 | XR_ITS ---
PROCEDURE: XR SACROILIAC JOINT BI MIN 3V CLINICAL INDICATION: SACROILIAC INFLAMMATION COMPARISON: No exams were available for comparison FINDINGS: No fracture or dislocation. No lytic or blastic change. There is normal mineralization. The joint spaces are well-preserved. No significant degenerative/arthritic changes. No erosive changes evident. Other findings:The SI joints have an unremarkable appearance. No lytic or blastic change. No evidence of effusion. There are mild osteoarthritic changes of the hips and degenerative changes are present in the lower lumbar spine. IMPRESSION: 1. Unremarkable SI joints. 2. Mild osteoarthritic change of the hips Dictated by: Jarvis Izquierdo MD 05/10/2020 15:49 Jarvis Izquierdo MD in [place] 05/10/2020 15:49
[2020-05-10 15:22] LABS: Basophils % 0.5 % (0.1-2.0); Eosinophils # 0.3 K/mm3 (0.0-0.4); Eosinophils % 3.9 % (0.1-12.0); Hematocrit 40.6 % (37.0-47.0); Hemoglobin 12.9 g/dL (12.2-16.2); Lymphocytes # 2.7 K/mm3 (0.7-4.5); Lymphocytes % 41.7 % (10-50); Mean Corpuscular HGB Conc 31.9 g/dL (31.8-35.4); Mean Corpuscular Hemoglobin 30.3 pg (27.0-31.2); Mean Corpuscular Volume 94.9 fl (81-99); Mean Platelet Volume 8.1 fl (7.4-10.4); Monocytes # 0.4 K/mm3 (0.1-1.0); Monocytes % 5.8 % (1.7-9.3); Neutrophils # 3.1 K/mm3 (1.8-7.8); Neutrophils % 48.1 % (37.0-80.0); Platelet Count 285 K/mm3 (142-424); Red Blood Count 4.28 M/mm3 (4.20-5.40); Red Cell Distribution Width 19.3 % (11.5-17.5); White Blood Count 6.4 K/mm3 (4.8-10.8)
[2020-05-10 15:55] LABS: Erythrocyte Sedimentation Rate 17 mm/hr (0-30)
[2020-05-10 17:02] LABS: Chloride 105 mmol/L (98-107)
[2020-05-10 17:03] LABS: Potassium 4.7 mmoL/L (3.5-5.1); Sodium 142 mmol/L (136-145)
[2020-05-10 17:05] LABS: Blood Urea Nitrogen 15 mg/dl (7-17); Estimated Glomerular Filt Rate 81 ml/min (>60); GFR (African American) 98 ML/MIN (>60)
[2020-05-10 17:06] LABS: Anion Gap 15.7 mEq/L (5-15); Calcium 9.8 mg/dl (8.4-10.2); Carbon Dioxide 26 mmol/L (22.0-30.0); Glucose 89 mg/dl (74-100)
== END ==
PROVIDERS: Visit Provider Internal Medicine Adolescent Medicine
DX: M46.1 Sacroiliitis, not elsewhere classified (principal); D50.0 Iron deficiency anemia secondary to blood loss (chronic)
CPT/HCPCS: 36415; 72202; 80048; 85025; 85651

== ENCOUNTER → 2020-07-23 13:41 | Outpatient (CLI) | payer MEDICARE, SELFPAY ==
[2020-07-23 14:27] LABS: Basophils % 0.7 % (0.1-2.0); Eosinophils # 0.4 K/mm3 (0.0-0.4); Eosinophils % 8.7 % (0.1-12.0); Hematocrit 42.3 % (37.0-47.0); Hemoglobin 13.4 g/dL (12.2-16.2); Lymphocytes # 2.5 K/mm3 (0.7-4.5); Lymphocytes % 53.9 % (10-50); Mean Corpuscular HGB Conc 31.7 g/dL (31.8-35.4); Mean Corpuscular Hemoglobin 30.5 pg (27.0-31.2); Mean Platelet Volume 8.6 fl (7.4-10.4); Monocytes # 0.4 K/mm3 (0.1-1.0); Monocytes % 7.6 % (1.7-9.3); Neutrophils # 1.4 K/mm3 (1.8-7.8); Neutrophils % 29.1 % (37.0-80.0); Platelet Count 200 K/mm3 (142-424); Red Blood Count 4.41 M/mm3 (4.20-5.40); Red Cell Distribution Width 13.8 % (11.5-17.5); White Blood Count 4.7 K/mm3 (4.8-10.8)
[2020-07-23 14:31] LABS: MANUAL DIFFERENTIAL MANUAL DIFFERENTIAL (MANUAL DIFF)
[2020-07-23 14:57] LABS: Eosinophils % 5 % (0-3); Lymphocytes % 52 % (10-50); Monocytes % 6 % (2-9); Neutrophils % 37 % (42-76); Platelet Estimate Normal; RBC Morphology Normal; Total Cells Counted 100
[2020-07-23 15:24] LABS: Chloride 103 mmol/L (98-107); Potassium 4.6 mmoL/L (3.5-5.1); Sodium 140 mmol/L (136-145)
[2020-07-23 15:27] LABS: Alanine Aminotransferase 14 U/L (12-78); Albumin Level 4.7 g/dl (3.5-5.0); Albumin/Globulin Ratio 1.9 (1.1-1.8); Alkaline Phosphatase 86 U/L (38-126); Anion Gap 14.6 mEq/L (5-15); Aspartate Amino Transferase 21 U/L (14-36); Bilirubin,Total 0.4 mg/dl (0.2-1.3); Blood Urea Nitrogen 24 mg/dl (7-17); Carbon Dioxide 27 mmol/L (22.0-30.0); Estimated Glomerular Filt Rate 97 ml/min (>60); GFR (African American) 117 ML/MIN (>60); Globulin 2.5 g/dL (1.3-3.2); Total Protein,Serum 7.2 g/dl (6.3-8.2)
[2020-07-23 15:28] LABS: Calcium 9.6 mg/dl (8.4-10.2); Glucose 99 mg/dl (74-100)
== END ==
PROVIDERS: Visit Provider Internal Medicine Adolescent Medicine
DX: D50.0 Iron deficiency anemia secondary to blood loss (chronic) (principal)
CPT/HCPCS: 36415; 80053; 85007; 85025

== ENCOUNTER → 2020-08-23 11:45 | Outpatient (CLI) | payer MEDICARE, SELFPAY ==
[2020-08-23 12:03] LABS: Basophils # 0.1 K/mm3 (0-0.2); Basophils % 0.8 % (0.1-2.0); Eosinophils # 0.4 K/mm3 (0.0-0.4); Eosinophils % 5.6 % (0.1-12.0); Hematocrit 36.5 % (37.0-47.0); Hemoglobin 12.1 g/dL (12.2-16.2); Lymphocytes # 2.2 K/mm3 (0.7-4.5); Lymphocytes % 36.4 % (10-50); Mean Corpuscular HGB Conc 33.1 g/dL (31.8-35.4); Mean Corpuscular Hemoglobin 29.7 pg (27.0-31.2); Mean Corpuscular Volume 89.9 fl (81-99); Mean Platelet Volume 8.4 fl (7.4-10.4); Monocytes # 0.5 K/mm3 (0.1-1.0); Monocytes % 7.4 % (1.7-9.3); Neutrophils # 3.1 K/mm3 (1.8-7.8); Neutrophils % 49.7 % (37.0-80.0); Platelet Count 223 K/mm3 (142-424); Red Blood Count 4.07 M/mm3 (4.20-5.40); Red Cell Distribution Width 13.7 % (11.5-17.5); White Blood Count 6.1 K/mm3 (4.8-10.8)
[2020-08-23 13:53] LABS: Iron 153 ug/dL (37-170)
[2020-08-23 14:02] LABS: Total Iron Binding Capacity 349 ug/dL (265-497)
[2020-08-23 14:30] LABS: Ferritin 11.1 ng/ml (11.1-264)
== END ==
PROVIDERS: Visit Provider Internal Medicine Gastroenterology
DX: D64.9 Anemia, unspecified (principal)
CPT/HCPCS: 36415; 82728; 83540; 83550; 85025

== ENCOUNTER 2020-09-20 13:40 | Emergency (ER) | payer MEDICARE, SELFPAY ==
[2020-09-20] VITALS (7 sets, daily range): BP systolic 114–155; BP diastolic 63–85; PULSE 76–125; RESP 16; TEMP 36.8–36.9; O2SAT 98–99; BMI 27.3
[2020-09-20 14:04] LABS: Basophils % 0.1 % (0.1-2.0); Eosinophils % 0.5 % (0.1-12.0); Hematocrit 25.5 % (37.0-47.0); Lymphocytes # 1.8 K/mm3 (0.7-4.5); Mean Corpuscular Hemoglobin 27.7 pg (27.0-31.2); Mean Corpuscular Volume 89.1 fl (81-99); Monocytes # 0.2 K/mm3 (0.1-1.0); Monocytes % 2.6 % (1.7-9.3); Neutrophils # 5.6 K/mm3 (1.8-7.8); Neutrophils % 73.7 % (37.0-80.0); Platelet Count 221 K/mm3 (142-424); Red Blood Count 2.87 M/mm3 (4.20-5.40); White Blood Count 7.6 K/mm3 (4.8-10.8)
[2020-09-20 14:07] LABS: Chloride 111 mmol/L (98-107); Potassium 3.8 mmoL/L (3.5-5.1); Sodium 142 mmol/L (136-145)
[2020-09-20 14:09] LABS: Alanine Aminotransferase 24 U/L (12-78); Blood Urea Nitrogen 45 mg/dl (7-17); Creatinine Clearance Estimated 58 mL/min (50-200); Estimated Glomerular Filt Rate 154 ml/min (>60); GFR (African American) 187 ML/MIN (>60)
[2020-09-20 14:10] LABS: Albumin Level 3.7 g/dl (3.5-5.0); Albumin/Globulin Ratio 1.5 (1.1-1.8); Alkaline Phosphatase 69 U/L (38-126); Anion Gap 13.8 mEq/L (5-15); Aspartate Amino Transferase 43 U/L (14-36); Bilirubin,Total 0.3 mg/dl (0.2-1.3); Calcium 8.4 mg/dl (8.4-10.2); Carbon Dioxide 21 mmol/L (22.0-30.0); Globulin 2.4 g/dL (1.3-3.2); Glucose 173 mg/dl (74-100); Total Protein,Serum 6.1 g/dl (6.3-8.2)
--- NOTE | 2020-09-20 14:12 | PC.NURSE ---
Hemoglobin 7.1 Dr. Higuera made aware
[2020-09-20 14:14] LABS: Hemoglobin 7.8 g/dL (12.2-16.2)
--- NOTE | 2020-09-20 14:14 | PC.NURSE ---
LAB MADE AWARE OF TYPE AND SCREEN
--- NOTE | 2020-09-20 14:14 | HMH.EDGIBL ---
ED Disposition Clinical Impression: Upper gastrointestinal hemorrhage Anemia Qualifiers: Anemia type: other cause Disposition: Xfer Short-Term Hosp Condition on Discharge: Critical Instructions: DI for Gastrointestinal Bleeding Referrals: Hawk Davis MD [Primary Care Provider] - - Critical Care Critical Care Time: No Attestation: On 09/20/20, the high probability of a clinically significant, sudden or life threatening deterioration of the following system(s) required my full and direct attention, intervention and personal management. The time I documented below is in addition to time spent performing reported procedures but includes the following listed in this critical care notation. Medical Decision Making - Medical Records Medical records reviewed: Yes: I reviewed the patient's medical records. - Adiel Inquiry Pt receiving controlled substance: No Vital Signs: 09/20/20 13:40 09/20/20 13:47 09/20/20 14:00 Temperature 98.3 F Temperature Source Oral Pulse Rate 125 H 112 H Pulse Rate [Right] 120 H Respiratory Rate 16 Blood Pressure 135/70 146/85 H Blood Pressure [Right Arm] 135/70 Blood Pressure Mean Blood Pressure Mean [Right Arm] 91 02 Sat by Pulse Oximetry 98 98 98 Oxygen Delivery Method Room Air 09/20/20 14:30 09/20/20 15:01 Temperature Temperature Source Pulse Rate 109 H 104 H Pulse Rate [Right] Respiratory Rate Blood Pressure 114/63 155/68 H Blood Pressure [Right Arm] Blood Pressure Mean 95 Blood Pressure Mean [Right Arm] 02 Sat by Pulse Oximetry 98 98 Oxygen Delivery Method - Lab Data Lab Results 09/20/20 13:51: WBC 7.6, RBC 2.87 L, Hgb 7.8 L*, Hct 25.5 L, MCV 89.1, MCH 27.7, MCHC 31.0 L, RDW 14.0, Plt Count 221, MPV 9.0, Neut % (Auto) 73.7, Lymph % (Auto) 23.0, [place] % (Auto) 2.6, Eos % (Auto) 0.5, Baso % (Auto) 0.1, Neut # (Auto) 5.6, Lymph # (Auto) 1.8, [place] # (Auto) 0.2, Eos # (Auto) 0.0, Baso # (Auto) 0.0 09/20/20 13:51: Sodium 142, Potassium 3.8, Chloride 111 H, Carbon Dioxide 21 L, Anion Gap 13.8, BUN 45 H, Creatinine 0.40 L, Estimated Creat Clear 58, Estimated GFR 154, Est GFR ( Amer) 187, Glucose 173 H, Calcium 8.4, Total Bilirubin 0.3, AST 43 H, ALT 24, Alkaline Phosphatase 69, Total Protein 6.1 L, Albumin 3.7, Globulin 2.4, Albumin/Globulin Ratio 1.5 09/20/20 13:51: Lipase 26 09/20/20 14:22: Crossmatch ([facility]G) See Detail 09/20/20 14:24: SARS-CoV-2 (PCR) Not detected, Influenza A Untype (PCR) Not detected, Influenza Type B (PCR) Not detected Result diagrams: 09/20/20 13:51 09/20/20 13:51 Orders (Tests/Meds): ED MEDICATIONS Generic Name Dose Route Start Last Admin Trade Name Freq PRN Reason Stop Dose Admin Sodium Chloride 1,000 mls @ 999 mls/hr 09/20/20 14:15 09/20/20 14:30 Sod Chlor 0.9% 1000ml Bag IV 09/20/20 15:15 999 mls/hr .Q1H1M FELIPE Administration Pantoprazole Sodium 80 mg/ 100 mls @ 10 mls/hr 09/20/20 15:15 Sodium Chloride IV 09/23/20 15:14 .Q10H FELIPE Sodium Chloride 250 mls @ 25 mls/hr 09/20/20 14:30 Sod Chlor 0.9% 250ml Bag IV 09/21/20 14:29 .Q10H FELIPE Discontinued Medications Generic Name Dose Route Start Last Admin Trade Name Freq PRN Reason Stop Dose Admin Pantoprazole Sodium 80 mg/ 100 mls @ 100 mls/hr 09/20/20 14:12 09/20/20 14:31 Sodium Chloride IV 09/20/20 15:11 100 mls/hr ONCE ONE Administration ORDERS Category Date Time Status Blood transfusion [Red Blood Cells] Stat BBK 09/20/20 14:22 Received Type and Screen Stat BBK 09/20/20 14:22 Received PT/PTT Stat Lab 09/20/20 14:22 Received Medical Decision Narrative: Presents with signs of upper GI bleed. Patient appears pale and is tachycardic with diffuse weakness. No history of liver cirrhosis, esophageal varices or blood thinner use. Differential diagnosis includes bleeding ulcer versus gastritis versus malignancy. Patient typed and screened, hemoglobin 7.9 down from 12.1 last jerome
--- NOTE | 2020-09-20 14:16 | PC.NURSE ---
calling domi at this time.
[2020-09-20 14:29] LABS: Lipase 26 U/L (23-300)
[2020-09-20 14:33] LABS: Coronavirus 19, PCR Not Detected (NotDetected); Influenza A, PCR Not Detected (NotDetected); Influenza B, PCR Not Detected (NotDetected)
--- NOTE | 2020-09-20 14:37 | PC.NURSE ---
face sheet faxed to [facility] at this time per their request.
--- NOTE | 2020-09-20 15:01 | PC.NURSE ---
Blood consent signed at this time
[2020-09-20 15:11] LABS: Activated Partial Thrombo Time 21.4 seconds (22.8-30.6); Prothrombin Time 11.7 seconds (10.1-12.5)
--- NOTE | 2020-09-20 15:12 | PC.NURSE ---
Pt to go to [facility], Neuro ICU Number for report [phone]
--- NOTE | 2020-09-20 15:18 | PC.NURSE ---
JUAN TO CALL REPORT TO [facility] WITHOUT SUCCESS. ROYA WAS TOLD, THAT PATIENT'S NURSE IS OFF THE FLOOR. CALL BACK IN 5 MINUTES.
--- NOTE | 2020-09-20 15:30 | PC.NURSE ---
notified per Rakel in blood bank that pts blood has a positive antibody, states they will have to get blood from [facility] and it could take 3-4 hours. Stated to Rakel that pt is being transferred to [place], her primary nurse is giving report on pt at this time. Stated pt will be transferred prior to blood being able to be ready. Notified ER of the above. notified warehouse worker of the above as well.
--- NOTE | 2020-09-20 15:51 | PC.NURSE ---
notified [facility] of transport needed to [facility]. pt is going als to [place] [facility].
--- NOTE | 2020-09-20 15:55 | PC.NURSE ---
Ruma from [facility] notified of positive antibody
--- NOTE | 2020-09-20 15:57 | PC.NURSE ---
Patient signed consent for transfer at this time
--- NOTE | 2020-09-20 16:17 | PC.NURSE ---
VERENA FROM [facility] AWARE OF ANTIBODY TYPE
== END 2020-09-20 16:25 | disposition short-term general hospital (02) ==
PROVIDERS: Emergency Provider Emergency Medicine; PCP Internal Medicine Adolescent Medicine
DX: K92.2 Gastrointestinal hemorrhage, unspecified (principal); K21.9 Gastro-esophageal reflux disease without esophagitis; E78.5 Hyperlipidemia, unspecified; I10 Essential (primary) hypertension; F41.8 Other specified anxiety disorders; E03.9 Hypothyroidism, unspecified; Z79.899 Other long term (current) drug therapy
CPT/HCPCS: 80053; 83690; 85025; 85610; 85730; 86850; 96365; 99283; 99284; U0003

== ENCOUNTER → 2020-09-30 14:02 | Outpatient (CLI) | payer MEDICARE, SELFPAY ==
[2020-09-30 14:33] LABS: Basophils % 0.2 % (0.1-2.0); Eosinophils # 0.3 K/mm3 (0.0-0.4); Eosinophils % 5.1 % (0.1-12.0); Hematocrit 31.5 % (37.0-47.0); Hemoglobin 9.9 g/dL (12.2-16.2); Lymphocytes % 34.4 % (10-50); Mean Corpuscular HGB Conc 31.6 g/dL (31.8-35.4); Mean Corpuscular Hemoglobin 28.4 pg (27.0-31.2); Mean Corpuscular Volume 89.9 fl (81-99); Mean Platelet Volume 8.7 fl (7.4-10.4); Monocytes # 0.4 K/mm3 (0.1-1.0); Monocytes % 6.1 % (1.7-9.3); Neutrophils # 3.2 K/mm3 (1.8-7.8); Neutrophils % 54.3 % (37.0-80.0); Platelet Count 377 K/mm3 (142-424); Red Cell Distribution Width 16.7 % (11.5-17.5); White Blood Count 5.9 K/mm3 (4.8-10.8)
[2020-09-30 15:13] LABS: Alanine Aminotransferase 14 U/L (12-78); Albumin Level 4.3 g/dl (3.5-5.0); Alkaline Phosphatase 72 U/L (38-126); Anion Gap 14.9 mEq/L (5-15); Aspartate Amino Transferase 19 U/L (14-36); Bilirubin,Total 0.5 mg/dl (0.2-1.3); Blood Urea Nitrogen 25 mg/dl (7-17); Calcium 8.7 mg/dl (8.4-10.2); Carbon Dioxide 26 mmol/L (22.0-30.0); Chloride 102 mmol/L (98-107); Estimated Glomerular Filt Rate 81 ml/min (>60); GFR (African American) 98 ML/MIN (>60); Globulin 2.2 g/dL (1.3-3.2); Glucose 101 mg/dl (74-100); Potassium 4.9 mmoL/L (3.5-5.1); Sodium 138 mmol/L (136-145); Total Protein,Serum 6.5 g/dl (6.3-8.2)
[2020-10-02 11:25] LABS: HIV Screen 4th Generation wRfx Non Reactive (Non Reactive)
== END ==
PROVIDERS: Visit Provider Internal Medicine Adolescent Medicine
DX: Z20.6 Contact with and (suspected) exposure to human immunodeficiency virus [HIV] (principal); Z87.11 Personal history of peptic ulcer disease; Z11.4 Encounter for screening for human immunodeficiency virus [HIV]
CPT/HCPCS: 36415; 80053; 85025; 86703; G0432

== ENCOUNTER → 2020-10-30 10:40 | Outpatient (CLI) | payer MEDICARE, SELFPAY ==
[2020-10-30 11:06] LABS: Basophils # 0.1 K/mm3 (0-0.2); Basophils % 1.2 % (0.1-2.0); Eosinophils # 0.2 K/mm3 (0.0-0.4); Eosinophils % 3.6 % (0.1-12.0); Hematocrit 29.5 % (37.0-47.0); Hemoglobin 8.9 g/dL (12.2-16.2); Lymphocytes # 1.9 K/mm3 (0.7-4.5); Lymphocytes % 31.8 % (10-50); Mean Corpuscular HGB Conc 30.2 g/dL (31.8-35.4); Mean Corpuscular Volume 86.1 fl (81-99); Mean Platelet Volume 9.7 fl (7.4-10.4); Monocytes # 0.5 K/mm3 (0.1-1.0); Monocytes % 7.8 % (1.7-9.3); Neutrophils # 3.3 K/mm3 (1.8-7.8); Neutrophils % 55.7 % (37.0-80.0); Platelet Count 316 K/mm3 (142-424); Red Blood Count 3.43 M/mm3 (4.20-5.40); Red Cell Distribution Width 17.3 % (11.5-17.5); White Blood Count 5.8 K/mm3 (4.8-10.8)
[2020-10-30 13:49] LABS: Alanine Aminotransferase 20 U/L (12-78); Albumin/Globulin Ratio 1.7 (1.1-1.8); Alkaline Phosphatase 74 U/L (38-126); Anion Gap 17.3 mEq/L (5-15); Aspartate Amino Transferase 22 U/L (14-36); Bilirubin,Total 0.3 mg/dl (0.2-1.3); Blood Urea Nitrogen 25 mg/dl (7-17); Carbon Dioxide 26 mmol/L (22.0-30.0); Chloride 105 mmol/L (98-107); Estimated Glomerular Filt Rate 97 ml/min (>60); GFR (African American) 117 ML/MIN (>60); Globulin 2.3 g/dL (1.3-3.2); Glucose 106 mg/dl (74-100); Potassium 5.3 mmoL/L (3.5-5.1); Sodium 143 mmol/L (136-145); Total Protein,Serum 6.3 g/dl (6.3-8.2)
== END ==
PROVIDERS: Visit Provider Internal Medicine Adolescent Medicine
DX: S00.33XA Contusion of nose, initial encounter (principal); Z86.2 Personal history of diseases of the blood and blood-forming organs and certain disorders involving the immune mechanism
CPT/HCPCS: 36415; 80053; 85025

== ENCOUNTER → 2020-11-08 11:15 | Outpatient (CLI) | payer MEDICARE, SELFPAY ==
[2020-11-08 12:00] LABS: Basophils # 0.1 K/mm3 (0-0.2); Basophils % 1.1 % (0.1-2.0); Eosinophils # 0.1 K/mm3 (0.0-0.4); Eosinophils % 2.1 % (0.1-12.0); Hematocrit 35.4 % (37.0-47.0); Hemoglobin 10.5 g/dL (12.2-16.2); Lymphocytes # 1.9 K/mm3 (0.7-4.5); Lymphocytes % 40.5 % (10-50); Mean Corpuscular HGB Conc 29.5 g/dL (31.8-35.4); Mean Corpuscular Hemoglobin 25.5 pg (27.0-31.2); Mean Corpuscular Volume 86.5 fl (81-99); Mean Platelet Volume 9.1 fl (7.4-10.4); Monocytes # 0.3 K/mm3 (0.1-1.0); Monocytes % 6.7 % (1.7-9.3); Neutrophils # 2.3 K/mm3 (1.8-7.8); Neutrophils % 49.6 % (37.0-80.0); Platelet Count 438 K/mm3 (142-424); Red Blood Count 4.09 M/mm3 (4.20-5.40); Red Cell Distribution Width 16.2 % (11.5-17.5); White Blood Count 4.7 K/mm3 (4.8-10.8)
== END ==
PROVIDERS: Visit Provider Internal Medicine Adolescent Medicine
DX: D64.9 Anemia, unspecified (principal)
CPT/HCPCS: 36415; 85025

== ENCOUNTER → 2020-11-30 10:57 | Outpatient (CLI) | payer MEDICARE, SELFPAY ==
[2020-11-30 11:25] LABS: Basophils % 0.7 % (0.1-2.0); Eosinophils % 0.4 % (0.1-12.0); Hematocrit 33.4 % (37.0-47.0); Hemoglobin 9.4 g/dL (12.2-16.2); Lymphocytes # 2.1 K/mm3 (0.7-4.5); Lymphocytes % 37.7 % (10-50); Mean Corpuscular HGB Conc 28.2 g/dL (31.8-35.4); Mean Corpuscular Hemoglobin 23.6 pg (27.0-31.2); Mean Corpuscular Volume 83.7 fl (81-99); Mean Platelet Volume 8.9 fl (7.4-10.4); Monocytes # 0.5 K/mm3 (0.1-1.0); Monocytes % 7.9 % (1.7-9.3); Neutrophils % 53.3 % (37.0-80.0); Platelet Count 456 K/mm3 (142-424); Red Cell Distribution Width 16.2 % (11.5-17.5); White Blood Count 5.7 K/mm3 (4.8-10.8)
[2020-11-30 13:10] LABS: Alanine Aminotransferase 14 U/L (12-78); Albumin Level 4.6 g/dl (3.5-5.0); Albumin/Globulin Ratio 1.8 (1.1-1.8); Alkaline Phosphatase 102 U/L (38-126); Anion Gap 17.3 mEq/L (5-15); Aspartate Amino Transferase 17 U/L (14-36); Bilirubin,Total 0.4 mg/dl (0.2-1.3); Blood Urea Nitrogen 21 mg/dl (7-17); Calcium 9.2 mg/dl (8.4-10.2); Carbon Dioxide 25 mmol/L (22.0-30.0); Chloride 103 mmol/L (98-107); Estimated Glomerular Filt Rate 97 ml/min (>60); GFR (African American) 117 ML/MIN (>60); Globulin 2.6 g/dL (1.3-3.2); Glucose 114 mg/dl (74-100); Potassium 5.3 mmoL/L (3.5-5.1); Sodium 140 mmol/L (136-145); Total Protein,Serum 7.2 g/dl (6.3-8.2)
== END ==
PROVIDERS: Visit Provider Internal Medicine Adolescent Medicine
DX: D50.0 Iron deficiency anemia secondary to blood loss (chronic) (principal)
CPT/HCPCS: 36415; 80053; 85025

== ENCOUNTER → 2020-12-17 14:21 | Outpatient (CLI) | payer MEDICARE, SELFPAY | PROVIDERS: Visit Provider Internal Medicine Gastroenterology | DX: Z01.812 Encounter for preprocedural laboratory examination (principal); Z20.822 Contact with and (suspected) exposure to COVID-19 | CPT/HCPCS: C9803; U0003; U0005 ==

== ENCOUNTER → 2021-01-05 11:50 | Outpatient (CLI) | payer MEDICARE, SELFPAY ==
[2021-01-05 12:41] LABS: Basophils # 0.1 K/mm3 (0-0.2); Basophils % 1.7 % (0.1-2.0); Eosinophils # 0.1 K/mm3 (0.0-0.4); Eosinophils % 3.7 % (0.1-12.0); Hematocrit 33.6 % (37.0-47.0); Hemoglobin 9.5 g/dL (12.2-16.2); Lymphocytes # 1.6 K/mm3 (0.7-4.5); Lymphocytes % 43.3 % (10-50); Mean Corpuscular HGB Conc 28.2 g/dL (31.8-35.4); Mean Corpuscular Hemoglobin 23.7 pg (27.0-31.2); Mean Platelet Volume 8.2 fl (7.4-10.4); Monocytes # 0.3 K/mm3 (0.1-1.0); Monocytes % 8.3 % (1.7-9.3); Neutrophils # 1.6 K/mm3 (1.8-7.8); Platelet Count 428 K/mm3 (142-424); Red Cell Distribution Width 17.4 % (11.5-17.5); White Blood Count 3.7 K/mm3 (4.8-10.8)
[2021-01-05 13:14] LABS: Anion Gap 13.1 mEq/L (5-15); Blood Urea Nitrogen 16 mg/dl (7-17); Carbon Dioxide 27 mmol/L (22.0-30.0); Chloride 105 mmol/L (98-107); Estimated Glomerular Filt Rate 119 ml/min (>60); GFR (African American) 144 ML/MIN (>60); Glucose 91 mg/dl (74-100); Potassium 5.1 mmoL/L (3.5-5.1); Sodium 140 mmol/L (136-145)
== END ==
PROVIDERS: Visit Provider Internal Medicine Adolescent Medicine
DX: I63.411 Cerebral infarction due to embolism of right middle cerebral artery (principal); Z86.2 Personal history of diseases of the blood and blood-forming organs and certain disorders involving the immune mechanism
CPT/HCPCS: 36415; 80048; 85025

== ENCOUNTER → 2021-01-12 12:02 | Outpatient (CLI) | payer MEDICARE, SELFPAY ==
[2021-01-12 12:15] LABS: Basophils # 0.1 K/mm3 (0-0.2); Basophils % 1.2 % (0.1-2.0); Eosinophils # 0.2 K/mm3 (0.0-0.4); Eosinophils % 3.4 % (0.1-12.0); Hematocrit 34.8 % (37.0-47.0); Lymphocytes # 2.1 K/mm3 (0.7-4.5); Lymphocytes % 45.2 % (10-50); Mean Corpuscular HGB Conc 28.8 g/dL (31.8-35.4); Mean Corpuscular Volume 83.5 fl (81-99); Mean Platelet Volume 8.1 fl (7.4-10.4); Monocytes # 0.3 K/mm3 (0.1-1.0); Monocytes % 6.5 % (1.7-9.3); Neutrophils % 43.7 % (37.0-80.0); Platelet Count 328 K/mm3 (142-424); Red Blood Count 4.17 M/mm3 (4.20-5.40); Red Cell Distribution Width 17.3 % (11.5-17.5); White Blood Count 4.7 K/mm3 (4.8-10.8)
[2021-01-12 12:23] LABS: Blood Urea Nitrogen 18 mg/dl (7-17); Calcium 9.4 mg/dl (8.4-10.2); Carbon Dioxide 27 mmol/L (22.0-30.0); Chloride 104 mmol/L (98-107); Estimated Glomerular Filt Rate 119 ml/min (>60); GFR (African American) 144 ML/MIN (>60); Glucose 109 mg/dl (74-100); Sodium 140 mmol/L (136-145)
== END ==
PROVIDERS: Visit Provider Internal Medicine Adolescent Medicine
DX: I63.411 Cerebral infarction due to embolism of right middle cerebral artery (principal); Z86.2 Personal history of diseases of the blood and blood-forming organs and certain disorders involving the immune mechanism
CPT/HCPCS: 36415; 80048; 85025

== ENCOUNTER → 2021-02-02 10:56 | Outpatient (CLI) | payer MEDICARE, SELFPAY ==
[2021-02-02 11:54] LABS: Basophils # 0.1 K/mm3 (0-0.2); Basophils % 1.4 % (0.1-2.0); Eosinophils # 0.1 K/mm3 (0.0-0.4); Eosinophils % 1.3 % (0.1-12.0); Hematocrit 33.9 % (37.0-47.0); Hemoglobin 10.2 g/dL (12.2-16.2); Lymphocytes # 1.7 K/mm3 (0.7-4.5); Lymphocytes % 36.8 % (10-50); Mean Corpuscular HGB Conc 30.2 g/dL (31.8-35.4); Mean Corpuscular Hemoglobin 23.2 pg (27.0-31.2); Mean Platelet Volume 8.2 fl (7.4-10.4); Monocytes # 0.4 K/mm3 (0.1-1.0); Monocytes % 8.2 % (1.7-9.3); Neutrophils # 2.5 K/mm3 (1.8-7.8); Neutrophils % 52.3 % (37.0-80.0); Platelet Count 332 K/mm3 (142-424); Red Cell Distribution Width 17.2 % (11.5-17.5); White Blood Count 4.8 K/mm3 (4.8-10.8)
[2021-02-02 14:00] LABS: Chloride 102 mmol/L (98-107)
[2021-02-02 14:01] LABS: Potassium 4.7 mmoL/L (3.5-5.1); Sodium 139 mmol/L (136-145)
[2021-02-02 14:03] LABS: Blood Urea Nitrogen 20 mg/dl (7-17); Estimated Glomerular Filt Rate 97 ml/min (>60); GFR (African American) 117 ML/MIN (>60)
[2021-02-02 14:04] LABS: Anion Gap 15.7 mEq/L (5-15); Carbon Dioxide 26 mmol/L (22.0-30.0); Glucose 99 mg/dl (74-100)
== END ==
PROVIDERS: Visit Provider Internal Medicine Adolescent Medicine
DX: Z86.2 Personal history of diseases of the blood and blood-forming organs and certain disorders involving the immune mechanism (principal)
CPT/HCPCS: 36415; 80048; 80053; 85025

== ENCOUNTER → 2021-03-02 12:50 | Outpatient (CLI) | payer MEDICARE, SELFPAY ==
[2021-03-02 13:08] LABS: Basophils # 0.1 K/mm3 (0-0.2); Basophils % 1.5 % (0.1-2.0); Eosinophils # 0.1 K/mm3 (0.0-0.4); Eosinophils % 1.1 % (0.1-12.0); Hematocrit 35.2 % (37.0-47.0); Hemoglobin 10.9 g/dL (12.2-16.2); Lymphocytes # 2.2 K/mm3 (0.7-4.5); Lymphocytes % 33.2 % (10-50); Mean Corpuscular Hemoglobin 23.3 pg (27.0-31.2); Mean Platelet Volume 9.1 fl (7.4-10.4); Monocytes # 0.4 K/mm3 (0.1-1.0); Monocytes % 5.4 % (1.7-9.3); Neutrophils # 3.8 K/mm3 (1.8-7.8); Neutrophils % 58.7 % (37.0-80.0); Platelet Count 346 K/mm3 (142-424); Red Blood Count 4.69 M/mm3 (4.20-5.40); White Blood Count 6.5 K/mm3 (4.8-10.8)
[2021-03-02 14:13] LABS: Alanine Aminotransferase 18 U/L (12-78); Albumin Level 4.8 g/dl (3.5-5.0); Albumin/Globulin Ratio 1.8 (1.1-1.8); Alkaline Phosphatase 94 U/L (38-126); Anion Gap 15.2 mEq/L (5-15); Aspartate Amino Transferase 24 U/L (14-36); Bilirubin,Total 0.3 mg/dl (0.2-1.3); Blood Urea Nitrogen 18 mg/dl (7-17); Calcium 9.7 mg/dl (8.4-10.2); Carbon Dioxide 27 mmol/L (22.0-30.0); Chloride 101 mmol/L (98-107); Estimated Glomerular Filt Rate 81 ml/min (>60); GFR (African American) 98 ML/MIN (>60); Globulin 2.7 g/dL (1.3-3.2); Glucose 98 mg/dl (74-100); Potassium 4.2 mmoL/L (3.5-5.1); Sodium 139 mmol/L (136-145); Total Protein,Serum 7.5 g/dl (6.3-8.2)
== END ==
PROVIDERS: Visit Provider Internal Medicine Adolescent Medicine
DX: Z86.2 Personal history of diseases of the blood and blood-forming organs and certain disorders involving the immune mechanism (principal)
CPT/HCPCS: 36415; 80053; 85025

== ENCOUNTER → 2021-03-30 10:52 | Outpatient (CLI) | payer MEDICARE, SELFPAY ==
[2021-03-30 12:00] LABS: Alanine Aminotransferase 13 U/L (12-78); Albumin Level 4.6 g/dl (3.5-5.0); Albumin/Globulin Ratio 2.2 (1.1-1.8); Alkaline Phosphatase 77 U/L (38-126); Aspartate Amino Transferase 19 U/L (14-36); Bilirubin,Total 0.2 mg/dl (0.2-1.3); Blood Urea Nitrogen 22 mg/dl (7-17); Calcium 9.3 mg/dl (8.4-10.2); Carbon Dioxide 30 mmol/L (22.0-30.0); Chloride 102 mmol/L (98-107); Estimated Glomerular Filt Rate 97 ml/min (>60); GFR (African American) 117 ML/MIN (>60); Globulin 2.1 g/dL (1.3-3.2); Glucose 100 mg/dl (74-100); Sodium 139 mmol/L (136-145); Total Protein,Serum 6.7 g/dl (6.3-8.2)
[2021-03-30 12:17] LABS: Free Thyroxine Index 2.6 ug/dL (5.93-13.13); T4 (Thyroxine) 7.1 ug/dl (5.53-11.0); Triiodothryronine (T3) Uptake 36 % (23.5-40.5)
[2021-03-30 12:30] LABS: Thyroid Stimulating Hormone < 0.02 uIU/mL (0.465-4.68)
[2021-03-30 12:37] LABS: Basophils # 0.1 K/mm3 (0-0.2); Basophils % 1.3 % (0.1-2.0); Eosinophils # 0.1 K/mm3 (0.0-0.4); Eosinophils % 2.1 % (0.1-12.0); Hematocrit 31.6 % (37.0-47.0); Hemoglobin 9.5 g/dL (12.2-16.2); Lymphocytes # 1.4 K/mm3 (0.7-4.5); Lymphocytes % 37.4 % (10-50); Mean Corpuscular HGB Conc 30.2 g/dL (31.8-35.4); Mean Corpuscular Hemoglobin 22.8 pg (27.0-31.2); Mean Corpuscular Volume 75.5 fl (81-99); Mean Platelet Volume 8.6 fl (7.4-10.4); Monocytes # 0.3 K/mm3 (0.1-1.0); Monocytes % 8.7 % (1.7-9.3); Neutrophils # 1.9 K/mm3 (1.8-7.8); Neutrophils % 50.6 % (37.0-80.0); Platelet Count 301 K/mm3 (142-424); Red Blood Count 4.18 M/mm3 (4.20-5.40); Red Cell Distribution Width 17.7 % (11.5-17.5); White Blood Count 3.8 K/mm3 (4.8-10.8)
== END ==
PROVIDERS: PCP Internal Medicine Adolescent Medicine; Visit Provider Internal Medicine Adolescent Medicine
DX: E03.9 Hypothyroidism, unspecified (principal); D50.0 Iron deficiency anemia secondary to blood loss (chronic)
CPT/HCPCS: 36415; 80053; 84436; 84443; 84479; 85025

== ENCOUNTER → 2021-04-07 09:17 | Outpatient (CLI) | payer MEDICARE, SELFPAY ==
[2021-04-07 09:55] LABS: Basophils # 0.1 K/mm3 (0-0.2); Basophils % 1.5 % (0.1-2.0); Eosinophils # 0.2 K/mm3 (0.0-0.4); Eosinophils % 3.4 % (0.1-12.0); Hematocrit 31.8 % (37.0-47.0); Hemoglobin 9.6 g/dL (12.2-16.2); Lymphocytes # 1.7 K/mm3 (0.7-4.5); Lymphocytes % 34.5 % (10-50); Mean Corpuscular HGB Conc 30.1 g/dL (31.8-35.4); Mean Corpuscular Hemoglobin 22.7 pg (27.0-31.2); Mean Corpuscular Volume 75.5 fl (81-99); Monocytes # 0.4 K/mm3 (0.1-1.0); Monocytes % 8.8 % (1.7-9.3); Neutrophils # 2.5 K/mm3 (1.8-7.8); Neutrophils % 51.8 % (37.0-80.0); Platelet Count 302 K/mm3 (142-424); Red Blood Count 4.22 M/mm3 (4.20-5.40); Red Cell Distribution Width 17.7 % (11.5-17.5); White Blood Count 4.8 K/mm3 (4.8-10.8)
== END ==
PROVIDERS: PCP Internal Medicine Adolescent Medicine; Visit Provider Internal Medicine Adolescent Medicine
DX: Z86.2 Personal history of diseases of the blood and blood-forming organs and certain disorders involving the immune mechanism (principal)
CPT/HCPCS: 36415; 85025

== ENCOUNTER → 2021-04-20 11:06 | Outpatient (CLI) | payer MEDICARE, SELFPAY ==
[2021-04-20 11:29] LABS: Basophils # 0.1 K/mm3 (0-0.2); Basophils % 1.3 % (0.1-2.0); Eosinophils # 0.1 K/mm3 (0.0-0.4); Eosinophils % 1.9 % (0.1-12.0); Hematocrit 30.1 % (37.0-47.0); Hemoglobin 8.8 g/dL (12.2-16.2); Lymphocytes # 1.4 K/mm3 (0.7-4.5); Mean Corpuscular HGB Conc 29.3 g/dL (31.8-35.4); Mean Corpuscular Volume 75.1 fl (81-99); Mean Platelet Volume 10.7 fl (7.4-10.4); Monocytes # 0.3 K/mm3 (0.1-1.0); Monocytes % 8.5 % (1.7-9.3); Neutrophils # 2.1 K/mm3 (1.8-7.8); Neutrophils % 53.3 % (37.0-80.0); Platelet Count 337 K/mm3 (142-424); Red Cell Distribution Width 18.1 % (11.5-17.5)
== END ==
PROVIDERS: PCP Internal Medicine Adolescent Medicine; Visit Provider Internal Medicine Adolescent Medicine
DX: Z86.2 Personal history of diseases of the blood and blood-forming organs and certain disorders involving the immune mechanism (principal)
CPT/HCPCS: 36415; 85025

== ENCOUNTER → 2021-04-29 15:08 | Outpatient (CLI) | payer MEDICARE, SELFPAY | PROVIDERS: PCP Internal Medicine Adolescent Medicine; Visit Provider Internal Medicine Adolescent Medicine | DX: D64.9 Anemia, unspecified (principal) | CPT/HCPCS: 36415; 86850 ==

== ENCOUNTER 2021-04-30 08:39 | Outpatient (CLI) | payer MEDICARE, SELFPAY ==
[2021-04-30] VITALS (11 sets, daily range): BP systolic 116–139; BP diastolic 59–79; PULSE 78–97; RESP 16–18; TEMP 36.4–36.8; O2SAT 97–100; BMI 26.6
[2021-04-30 15:25] LABS: Hematocrit 28.7 % (37.0-47.0); Hemoglobin 8.7 g/dL (12.2-16.2)
== END 2021-04-30 14:53 | disposition home or self-care (01) ==
PROVIDERS: PCP Internal Medicine Adolescent Medicine; Visit Provider Internal Medicine Adolescent Medicine
DX: D64.9 Anemia, unspecified (principal)
CPT/HCPCS: 36430; 85014; 85018; P9016

== ENCOUNTER → 2021-05-02 07:52 | Outpatient (CLI) | payer MEDICARE, SELFPAY ==
--- NOTE | 2021-05-02 08:02 | MR_ITS ---
FINAL REPORT CLINICAL HISTORY: DIZZINESS, HISTORY OF CVA. hx of stroke in oct. dizziness x2wks. no prior. COMPARISON: 07/16/2018 FINDINGS: Multiplanar MR imaging of the brain was performed without contrast. There is mild age-appropriate atrophy. There are scattered foci of increased T2 signal in the cerebral white matter that have a nonspecific appearance but likely represent moderate chronic ischemic/gliotic changes. There is a focus of encephalomalacia in the posterior right frontal lobe consistent with prior infarct. There is no evidence of intracranial hemorrhage or mass. No abnormal ventricular dilatation is identified. No abnormal extra-axial fluid collection is seen. No abnormality is seen on the diffusion weighted images. The posterior fossa and brainstem are unremarkable. Normal major vessel vascular flow voids are seen. IMPRESSION: Age-appropriate atrophy, mild chronic ischemic/gliotic changes and findings of prior infarct in the posterior right frontal lobe. No acute intracranial abnormality. Reviewed, Interpreted and Dictated by Aman Feliciano III, MD Transcribed by Nadine Grace Authenticated by Aman Feliciano III, MD on 05/02/2021 09:32:22 AM [facility]
== END ==
PROVIDERS: PCP Internal Medicine Adolescent Medicine; Visit Provider Internal Medicine Adolescent Medicine
DX: R42 Dizziness and giddiness (principal); I69.30 Unspecified sequelae of cerebral infarction
CPT/HCPCS: 70551

== ENCOUNTER 2021-06-02 10:18 | Outpatient (CLI) | payer MEDICARE, SELFPAY ==
[2021-06-02 10:50] VITALS: BP 135/71; PULSE 86; RESP 20; TEMP 36.9; O2SAT 95
[2021-06-02 11:30] VITALS: BP 130/71; PULSE 86; RESP 20; TEMP 36.9; O2SAT 95
== END 2021-06-02 11:30 | disposition home or self-care (01) ==
LOC: INF 10:20
PROVIDERS: PCP Internal Medicine Adolescent Medicine; Visit Provider Internal Medicine Adolescent Medicine
DX: D50.0 Iron deficiency anemia secondary to blood loss (chronic) (principal)
CPT/HCPCS: 96365; J1439

== ENCOUNTER 2021-06-07 10:48 | Outpatient (CLI) | payer MEDICARE, SELFPAY ==
[2021-06-07 11:07] VITALS: BP 138/77; PULSE 87; RESP 18; O2SAT 99
[2021-06-07 11:47] VITALS: BP 126/74; PULSE 71; RESP 18
== END 2021-06-07 11:47 | disposition home or self-care (01) ==
PROVIDERS: PCP Internal Medicine Adolescent Medicine; Visit Provider Internal Medicine Adolescent Medicine
DX: D50.9 Iron deficiency anemia, unspecified (principal)
CPT/HCPCS: 96365; J1439

== ENCOUNTER → 2021-07-01 08:53 | Outpatient (CLI) | payer MEDICARE, SELFPAY | PROVIDERS: Visit Provider Surgery | DX: Z01.812 Encounter for preprocedural laboratory examination (principal); Z11.52 Encounter for screening for COVID-19; K44.9 Diaphragmatic hernia without obstruction or gangrene | CPT/HCPCS: C9803; U0003; U0005 ==

== ENCOUNTER → 2021-09-28 06:51 | Outpatient (CLI) | payer MEDICARE, SELFPAY ==
--- NOTE | 2021-09-28 07:43 | NM_ITS ---
FINAL REPORT CLINICAL HISTORY: GOITER, 321 UCI I123 CAPSULE FINDINGS: THYROID SCAN & UPTAKE SINGLE OR MULTI 231 uCi of isotope I 123. Uptake after 7 hours is 10%. Uptake after 25 hours is 23 %. The thyroid gland is somewhat lobulated. IMPRESSION: Normal thyroid uptake. Reviewed, Interpreted and Dictated by Hilton Santoro MD Transcribed by Zheng Hinojosa Authenticated and [facility]
== END ==
PROVIDERS: PCP Internal Medicine Adolescent Medicine; Visit Provider Internal Medicine Adolescent Medicine
DX: E04.9 Nontoxic goiter, unspecified (principal)
CPT/HCPCS: 78014; A9516

== ENCOUNTER → 2021-11-16 08:01 | Outpatient (CLI) | payer MEDICARE, SELFPAY ==
--- NOTE | 2021-11-16 08:16 | MR_ITS ---
FINAL REPORT CLINICAL HISTORY: CENTRAL HYPOTHYROIDISM 16 ml prohance given COMPARISON: July 16, 2018; May 02, 2021 FINDINGS: Multiplanar MR imaging of the brain was performed without and with contrast. There is moderate atrophy. Multiple foci of increased T2 signal are seen in the cerebral white matter that have consistent with moderate chronic ischemic/gliotic changes. There is right posterior frontal encephalomalacia stable from the prior exam consistent with prior infarct. There is a partially empty sella as a variant. There is no evidence of intracranial hemorrhage or mass. No pituitary mass is identified. No abnormal ventricular dilatation is identified. There is no evidence of shift of the midline structures. No abnormal extra-axial fluid collection is seen. No area of abnormal restricted diffusion is identified. The posterior fossa and brainstem have an unremarkable appearance. No abnormal contrast enhancement is seen. Normal major vessel vascular flow voids are seen. IMPRESSION: Moderate atrophy and chronic ischemic/gliotic changes, slightly worse. No acute intracranial abnormality. Reviewed, Interpreted and Dictated by Aman Feliciano III, MD Transcribed by Zheng Hinojosa Authenticated and [facility]
[2021-11-16 08:53] LABS: Blood Urea Nitrogen 16 mg/dl (7-17); Estimated Glomerular Filt Rate 119 ml/min (>60); GFR (African American) 144 ML/MIN (>60)
== END ==
PROVIDERS: PCP Internal Medicine Adolescent Medicine; Visit Provider Internal Medicine Adolescent Medicine
DX: E03.8 Other specified hypothyroidism (principal)
CPT/HCPCS: 36415; 70553; 82565; 84520; A9576

== ENCOUNTER 2022-03-07 19:24 | Emergency (ER) | payer MEDICARE, SELFPAY ==
[2022-03-07 19:38] VITALS: BP 162/83; PULSE 93; RESP 18; TEMP 36.7; O2SAT 95; BMI 27.3
[2022-03-07 19:45] VITALS: BP 186/96; PULSE 97; RESP 20; TEMP 36.7; O2SAT 95; BMI 27.4
--- NOTE | 2022-03-07 20:09 | EXP.UTC ---
Discharge Plan Disposition Patient Disposition: Still a Patient Condition: Fair Prescriptions Prescriptions: No Action amlodipine 5 mg tablet 5 mg PO DAILY simvastatin 40 MG tablet 40 mg PO HS omeprazole 20 MG capsule,delayed release(DR/EC) 20 mg PO BID escitalopram oxalate 20 MG tablet 20 mg PO DAILY rizatriptan 10 MG tablet,disintegrating 10 mg PO NEEDED PRN (Reason: migraines) Label Comments: DISSOLVE 1 TABLET IN MOUTH NEEDED FOR MIGRAINES oxycodone-acetaminophen 1 EACH tablet 1 each PO TID propranolol 40 MG tablet 40 mg PO BID quetiapine 200 MG tablet 200 mg PO HS Label Comments: TAKE 1 TABLET BY MOUTH EVERY DAY AT BEDTIME Referrals Follow up/Referrals: Hawk Davis MD [Primary Care Provider] - See instructions Discharge ED Provider: Nicolasa Hong [facility] HPI General Stated complaint: chills, weakness, unable to eat, cough Mode of Arrival: Ambulatory Source of Information: Patient and Spouse Limitations: No Limitations Time Seen by Provider: 03/07/22 20:09 Description of Symptoms (Recalled from Triage Doc. by RN): PATIENT C/O INABILITY TO SLEEP, DECREASED/MINIMAL PO INTAKE, NAUSEA, VOMITING, WEAKNESS, AND TROUBLE STANDING STILL X 1 WEEK HEENT Symptoms (Recalled from RN notes): No Resp Symptoms (Recalled from RN notes): No Skin Symptoms (Recalled from RN notes): No MS Symptoms (Recalled from RN notes): No Functional Status (Recalled from RN notes): WNL History of Present Illness Provider Complaint: Patient initially states that she is having flu like symptoms because she didnt know what to say about how she feels but states that she does not feel right States that she cant get the words to explain how she is feeling, Son states that she hasnt been herself States that she is not eating or drinking and not sleeping Patient states that she has 3 days over the weekend she does not remember and realized she did not take her medication on those days not sure if she slept through them or not Son states that he is concerned and wanted her to get checked States that she is weaker than usual and not able to walk well States that the not sleeping is an ongoing thing but much worse over the last few days and patient states that she just doesnt feel right and hasnt been able to drink or eat due to the smell of food makes her nauseous Related Data Home Medications Medication Instructions Recorded Confirmed escitalopram oxalate 20 mg tablet 20 mg PO DAILY Depression 07/05/18 03/08/20 omeprazole 20 mg capsule,delayed 20 mg PO BID GERD 07/05/18 03/08/20 release simvastatin 40 mg tablet 40 mg PO HS Cholesterol 07/05/18 03/08/20 rizatriptan 10 mg disintegrating 10 mg PO NEEDED PRN migraines 07/06/18 03/08/20 tablet propranolol 40 mg tablet 40 mg PO BID heart rate 12/17/18 03/08/20 quetiapine 200 mg tablet 200 mg PO HS MOOD 12/17/18 03/08/20 amlodipine 5 mg tablet 5 mg PO DAILY High blood pressure 02/02/20 03/08/20 oxycodone-acetaminophen 7.5 mg-325 1 each PO TID Pain 03/04/20 03/08/20 mg tablet Allergies Allergy/AdvReac Type Severity Reaction Status Date / Time haloperidol [From HALDOL] Allergy Unknown Verified 03/08/20 13:59 Worker's Comp Is this a Worker's Comp case?: No [facility] Disclaimer: The information contained in this section may have been updated after the patient was seen, as this information can be updated by other users. Medical History (Updated 03/07/22 @ 20:01 by Sherry Queen RN) Anxiety Depression History of anemia History of stroke Hyperlipidemia Hypertension Migraine Thyroid disease Surgical History (Updated 03/07/22 @ 20:01 by Sherry Queen RN) History of cholecystectomy History of hysterectomy Social History (Updated 03/07/22 @ 20:01 by Sherry Queen RN) Smoking Status: Never smoker alcohol intake: current substance use type: denies use current occupational status: retired
--- NOTE | 2022-03-07 20:20 | PC.NURSE ---
PATIENT SENT TO ER PER Sania SEVILLA APRN FOR FURTHER EVALUATION. REPORT GIVEN Cory EDWARDS RN BY Sania SEVILLA APRN
[2022-03-07 20:29] VITALS: BP 172/85; PULSE 80; RESP 18; TEMP 36.7; O2SAT 98; BMI 27.3
--- NOTE | 2022-03-07 20:34 | XR_ITS ---
PROCEDURE INFORMATION: Exam: XR Chest Exam date and time: 03/07/2022 8:44 PM Age: 81 years old Clinical indication: Other: Weakness TECHNIQUE: Imaging protocol: Radiologic exam of the chest. Views: 2 views. COMPARISON: CR XR RIBS LT MIN 3V W CXR1V 01/05/2020 10:33 AM FINDINGS: Lungs: No consolidation. Pleural spaces: Unremarkable. No pleural effusion. No pneumothorax. Heart/Mediastinum: Unremarkable. No cardiomegaly. Vasculature: Elongation of the thoracic aorta. Bones/joints: Degenerative change involving the spine. Osteopenia. IMPRESSION: No acute cardiopulmonary process.
--- NOTE | 2022-03-07 20:34 | ECG_ITS ---
APPROVED REPORT Exam: Resting ECG HR:82 bpm ECG Measurements Heart Rate 82 AXES IN 183 P 69 QRSd 83 QRS 61 QT 381 T 62 QTc 420 Conclusion SINUS RHYTHM NORMAL ECG UNCONFIRMED REPORT Electronically signed by : Hawk Davis MD 03/09/2022 20:23:09
--- NOTE | 2022-03-07 20:34 | CT_ITS ---
PROCEDURE INFORMATION: Exam: CT Head Without Contrast Exam date and time: 03/07/2022 8:56 PM Age: 81 years old Clinical indication: Other: Generalized weakness; Patient HX: HX stroke x1 year ago TECHNIQUE: Imaging protocol: Computed tomography of the head without contrast. Radiation optimization: All CT scans at this facility use at least one of these dose optimization techniques: automated exposure control; mA and/or kV adjustment per patient size (includes targeted exams where dose is matched to clinical indication); or iterative reconstruction. COMPARISON: MR HEAD/BRAIN WO/W CON 11/16/2021 9:21 AM FINDINGS: Brain: Age-related volume loss. Decreased attenuation of the supratentorial white matter is likely secondary to chronic microvascular ischemia. No acute intracranial hemorrhage, midline shift or intracranial mass effect. Chronic right frontoparietal infarct. Cerebral ventricles: Ventriculomegaly is commensurate for degree of volume loss. Paranasal sinuses: Minimal paranasal sinus disease. Mastoid air cells: Visualized mastoid air cells are well aerated. Bones/joints: Unremarkable. No acute fracture. Soft tissues: Unremarkable. IMPRESSION: No acute intracranial abnormality.
[2022-03-07 20:48] LABS: Basophils # 0.1 K/mm3 (0-0.2); Basophils % 1.7 % (0.1-2.0); Eosinophils % 0.4 % (0.1-12.0); Hematocrit 48.3 % (37.0-47.0); Hemoglobin 16.1 g/dL (12.2-16.2); Lymphocytes # 2.5 K/mm3 (0.7-4.5); Lymphocytes % 37.6 % (10-50); Mean Corpuscular HGB Conc 33.3 g/dL (31.8-35.4); Mean Corpuscular Hemoglobin 32.1 pg (27.0-31.2); Mean Corpuscular Volume 96.3 fl (81-99); Mean Platelet Volume 8.3 fl (7.4-10.4); Monocytes # 0.5 K/mm3 (0.1-1.0); Monocytes % 7.4 % (1.7-9.3); Neutrophils # 3.6 K/mm3 (1.8-7.8); Neutrophils % 52.9 % (37.0-80.0); Platelet Count 251 K/mm3 (142-424); Red Blood Count 5.01 M/mm3 (4.20-5.40); Red Cell Distribution Width 12.6 % (11.5-17.5); White Blood Count 6.7 K/mm3 (4.8-10.8)
[2022-03-07 21:05] LABS: Alanine Aminotransferase 23 U/L (12-78); Albumin Level 5.3 g/dl (3.5-5.0); Albumin/Globulin Ratio 1.6 (1.1-1.8); Alkaline Phosphatase 171 U/L (38-126); Anion Gap 14.1 mEq/L (5-15); Aspartate Amino Transferase 28 U/L (14-36); Bilirubin,Total 0.8 mg/dl (0.2-1.3); Blood Urea Nitrogen 17 mg/dl (7-17); Calcium 10.3 mg/dl (8.4-10.2); Carbon Dioxide 26 mmol/L (22.0-30.0); Chloride 98 mmol/L (98-107); Creatinine Clearance Estimated 57 mL/min (50-200); Estimated Glomerular Filt Rate 154 ml/min (>60); GFR (African American) 186 ML/MIN (>60); Globulin 3.3 g/dL (1.3-3.2); Glucose 121 mg/dl (74-100); Potassium 3.1 mmoL/L (3.5-5.1); Sodium 135 mmol/L (136-145); Total Protein,Serum 8.6 g/dl (6.3-8.2)
[2022-03-07 21:11] LABS: C-Reactive Protein 1.3 mg/L (0-4)
--- NOTE | 2022-03-07 21:17 | HMH.EDWEAK ---
Discharge Plan Disposition Patient Disposition: Home, Self-Care Condition: Fair Prescriptions Prescriptions: No Action amlodipine 5 mg tablet 5 mg PO DAILY simvastatin 40 MG tablet 40 mg PO HS omeprazole 20 MG capsule,delayed release(DR/EC) 20 mg PO BID escitalopram oxalate 20 MG tablet 20 mg PO DAILY rizatriptan 10 MG tablet,disintegrating 10 mg PO NEEDED PRN (Reason: migraines) Label Comments: DISSOLVE 1 TABLET IN MOUTH NEEDED FOR MIGRAINES oxycodone-acetaminophen 1 EACH tablet 1 each PO TID propranolol 40 MG tablet 40 mg PO BID quetiapine 200 MG tablet 200 mg PO HS Label Comments: TAKE 1 TABLET BY MOUTH EVERY DAY AT BEDTIME Referrals Follow up/Referrals: Hawk Davis MD [Primary Care Provider] - See instructions Clinical Impressions Clinical Impression: Left against medical advice, Weakness Instructions Patient Instructions: DI for Muscle Weakness Discharge ED Provider: Misbah Landers Weakness HPI General Chief complaint: Weakness Stated complaint: chills, weakness, unable to eat, cough Time Seen by Provider: 03/07/22 20:09 Mode of Arrival: Wheelchair Source of Information: Patient and Relative Limitations: No Limitations Description of Symptoms (Recalled from ER Triage Doc. by RN): pt c/o increasing weakness, n/v/d, ansd unable to sleep. pt states she doesn't feel like herself and didn't take any of her meds -sunday. History of Present Illness HPI Narrative: pt with hx of prev cva with inc weakness - no fever/cough /trauma /rash /dec po intake Complaint: generalized weakness Onset (ago): day(s) Duration: intermittent Location: generalized Severity: moderate Associated symptoms: denies other symptoms Related Data Home Medications Medication Instructions Recorded Confirmed escitalopram oxalate 20 mg tablet 20 mg PO DAILY Depression 07/05/18 03/08/20 omeprazole 20 mg capsule,delayed 20 mg PO BID GERD 07/05/18 03/08/20 release simvastatin 40 mg tablet 40 mg PO HS Cholesterol 07/05/18 03/08/20 rizatriptan 10 mg disintegrating 10 mg PO NEEDED PRN migraines 07/06/18 03/08/20 tablet propranolol 40 mg tablet 40 mg PO BID heart rate 12/17/18 03/08/20 quetiapine 200 mg tablet 200 mg PO HS MOOD 12/17/18 03/08/20 amlodipine 5 mg tablet 5 mg PO DAILY High blood pressure 02/02/20 03/08/20 oxycodone-acetaminophen 7.5 mg-325 1 each PO TID Pain 03/04/20 03/08/20 mg tablet Allergies Allergy/AdvReac Type Severity Reaction Status Date / Time haloperidol [From HALDOL] Allergy Unknown Verified 03/08/20 13:59 [facility] Disclaimer: The information contained in this section may have been updated after the patient was seen, as this information can be updated by other users. Medical History (Updated 03/07/22 @ 23:29 by Misbah Landers MD) Anxiety Depression History of anemia History of stroke Hyperlipidemia Hypertension Migraine Thyroid disease Surgical History (Updated 03/07/22 @ 20:01 by Sherry Queen RN) History of cholecystectomy History of hysterectomy Social History (Updated 03/07/22 @ 20:01 by Sherry Queen RN) Smoking Status: Never smoker alcohol intake: current substance use type: denies use current occupational status: retired Travel in the last 8 weeks: None household members: spouse housing: house current occupational exposures/hazards: No caffeine: Yes ROS Obtained: Yes All systems reviewed & no additional complaints except as documented Physical Exam General General appearance: alert and in no apparent distress Head Head exam: normocephalic Eye Eye exam: Present PERRL and EOMI ENT ENT exam: Present mucous membranes moist Neck Neck exam: Present trachea midline Respiratory Respiratory exam: Absent respiratory distress Cardiovascular Cardiovascular exam: Present regular rate and systolic murmur Abdominal Exam Abdominal exam: Prese
[2022-03-07 21:21] LABS: Troponin I < 0.01 ng/ml (0.00-0.034)
[2022-03-07 21:24] LABS: Procalcitonin 0.038 ng/mL (0.0-2.0)
--- NOTE | 2022-03-07 21:34 | PC.NURSE ---
Pt ambulatory to bathroom with minimal assistance. Urine sample collected.
[2022-03-07 21:38] LABS: Thyroid Stimulating Hormone < 0.02 uIU/mL (0.465-4.68)
[2022-03-07 21:42] VITALS: BP 165/79; PULSE 74; O2SAT 99
[2022-03-07 22:06] LABS: Appearance,Urine CLEAR (Clear); Bilirubin,Urine Negative (Negative); Blood, Urine 1+ (Negative); Color,Urine YELLOW (Yellow); Glucose,Urine (UA) Negative (Negative); Ketones,Urine 3+ (Negative); Leukocyte Esterase,Urine TRACE (Negative); Microscopic, Urine URINE MICROSCOPIC (MICROSCOPIC); Nitrate,Urine Negative (Negative); PH,Urine 6.5 (5.0-8.5); Protein,Urine Negative (Negative); Specific Gravity, Urine 1.015 (1.005-1.030); Urobilinogen,Urine 0.2 EU/dl (0.2)
[2022-03-07 22:11] LABS: Erythrocyte Sedimentation Rate 9 mm/hr (0-30)
--- NOTE | 2022-03-07 22:35 | PC.NURSE ---
Updated pt family of DYLAN and Dr. Landers would be in shortly.
[2022-03-07 22:45] LABS: Bacteria,Urine Trace /lpf
[2022-03-07 23:15] VITALS: BP 164/78; PULSE 81; RESP 16; TEMP 36.7; O2SAT 96
== END 2022-03-07 23:43 | disposition home or self-care (01) ==
LOC: ER 19:39 → UTC 19:39 → ER 20:18
PROVIDERS: Emergency Provider Emergency Medicine; PCP Internal Medicine Adolescent Medicine
DX: R53.1 Weakness (principal); R11.2 Nausea with vomiting, unspecified; R19.7 Diarrhea, unspecified; D64.9 Anemia, unspecified; R05.9 Cough, unspecified; I10 Essential (primary) hypertension; K21.9 Gastro-esophageal reflux disease without esophagitis; E78.00 Pure hypercholesterolemia, unspecified; E07.9 Disorder of thyroid, unspecified; G43.909 Migraine, unspecified, not intractable, without status migrainosus; F32.A Depression, unspecified; F41.9 Anxiety disorder, unspecified; Z79.899 Other long term (current) drug therapy; Z88.8 Allergy status to other drugs, medicaments and biological substances; Z86.73 Personal history of transient ischemic attack (TIA), and cerebral infarction without residual deficits
CPT/HCPCS: 70450; 71046; 80053; 81001; 84145; 84439; 84443; 84484; 85025; 85651; 86140; 87086; 96360; 99285

== ENCOUNTER 2022-03-09 12:37 | Outpatient (CLI) | payer MEDICARE, SELFPAY ==
[2022-03-09 12:43] VITALS: BMI 22.7
[2022-03-09 13:10] VITALS: BP 157/73; PULSE 79; RESP 16; TEMP 36.6
[2022-03-09 13:14] LABS: Basophils # 0.1 K/mm3 (0-0.2); Basophils % 1.3 % (0.1-2.0); Eosinophils # 0.1 K/mm3 (0.0-0.4); Eosinophils % 0.9 % (0.1-12.0); Hematocrit 48.8 % (37.0-47.0); Hemoglobin 16.3 g/dL (12.2-16.2); Lymphocytes % 35.5 % (10-50); Mean Corpuscular HGB Conc 33.3 g/dL (31.8-35.4); Mean Corpuscular Hemoglobin 32.5 pg (27.0-31.2); Mean Corpuscular Volume 97.5 fl (81-99); Mean Platelet Volume 8.8 fl (7.4-10.4); Monocytes # 0.3 K/mm3 (0.1-1.0); Monocytes % 6.2 % (1.7-9.3); Neutrophils # 3.1 K/mm3 (1.8-7.8); Neutrophils % 56.2 % (37.0-80.0); Platelet Count 248 K/mm3 (142-424); Red Cell Distribution Width 12.8 % (11.5-17.5); White Blood Count 5.5 K/mm3 (4.8-10.8)
[2022-03-09 13:16] LABS: Chloride 97 mmol/L (98-107); Potassium 3.2 mmoL/L (3.5-5.1); Sodium 139 mmol/L (136-145)
[2022-03-09 13:19] LABS: Anion Gap 14.2 mEq/L (5-15); Blood Urea Nitrogen 16 mg/dl (7-17); Calcium 10.1 mg/dl (8.4-10.2); Carbon Dioxide 31 mmol/L (22.0-30.0); Creatinine Clearance Estimated 47 mL/min (50-200); Estimated Glomerular Filt Rate 119 ml/min (>60); GFR (African American) 144 ML/MIN (>60); Glucose 125 mg/dl (74-100)
[2022-03-09 14:10] VITALS: BP 144/83; PULSE 72; RESP 16
[2022-03-09 14:28] LABS: Microscopic, Urine URINE MICROSCOPIC (MICROSCOPIC)
[2022-03-09 14:29] LABS: Appearance,Urine CLEAR (Clear); Bilirubin,Urine Negative (Negative); Blood, Urine Negative (Negative); Color,Urine YELLOW (Yellow); Glucose,Urine (UA) Negative (Negative); Ketones,Urine 1+ (Negative); Leukocyte Esterase,Urine TRACE (Negative); Nitrate,Urine Negative (Negative); Protein,Urine Negative (Negative); Specific Gravity, Urine 1.015 (1.005-1.030); Urobilinogen,Urine 0.2 EU/dl (0.2)
[2022-03-09 14:35] VITALS: BP 152/78; PULSE 76; RESP 16
[2022-03-09 14:40] LABS: Bacteria,Urine Trace /lpf; Calcium Oxalate Crystals,Urine Trace /lpf
[2022-03-09 15:05] VITALS: BP 157/71; PULSE 82; RESP 16
[2022-03-09 15:35] VITALS: BP 144/76; PULSE 79; RESP 16
[2022-03-20 21:30] LABS: PTH Related Peptide < 2.0
== END 2022-03-09 15:40 | disposition home or self-care (01) ==
PROVIDERS: PCP Internal Medicine Adolescent Medicine; Visit Provider Internal Medicine Adolescent Medicine
DX: E86.0 Dehydration (principal); N39.0 Urinary tract infection, site not specified; R79.1 Abnormal coagulation profile
CPT/HCPCS: 80048; 81001; 82397; 85025; 96360; 96361; 96367; J0696; J7060

== ENCOUNTER 2022-05-04 13:22 | Emergency (ER) | payer MEDICARE, SELFPAY ==
[2022-05-04] VITALS (9 sets, daily range): BP systolic 131–184; BP diastolic 73–88; PULSE 64–77; RESP 18–19; TEMP 36.6; O2SAT 96–100; BMI 27.3
--- NOTE | 2022-05-04 13:54 | XR_ITS ---
PROCEDURE INFORMATION: Exam: XR Chest Exam date and time: 05/04/2022 2:34 PM Age: 81 years old Clinical indication: Injury or trauma; Fall; Other: Weakness TECHNIQUE: Imaging protocol: Radiologic exam of the chest. Views: 1 view. COMPARISON: CR XR CHEST 2V 03/07/2022 8:44 PM FINDINGS: Lungs: Calcified granuloma in the right lower lobe is stable. The lungs appear otherwise clear. No focal areas of consolidation. Pleural spaces: No pleural effusions or appreciable adenopathy. Negative for pneumothorax. Heart/Mediastinum: Cardiac silhouette and pulmonary vasculature are within range of normal. The aorta is mildly unfolded, as before. Bones/joints: There is no evidence of acute fracture. IMPRESSION: Negative for an acute cardiopulmonary abnormality. Stable chest radiograph.
--- NOTE | 2022-05-04 13:59 | PC.NURSE ---
DR ALVARADO AT BEDSIDE
[2022-05-04 14:00] LABS: Coronavirus 19, PCR Not Detected (NotDetected); Influenza A, PCR Not Detected (NotDetected); Influenza B, PCR Not Detected (NotDetected)
[2022-05-04 14:03] LABS: Chloride 99 mmol/L (98-107); Sodium 137 mmol/L (136-145)
[2022-05-04 14:04] LABS: Potassium 3.2 mmoL/L (3.5-5.1)
[2022-05-04 14:06] LABS: Alanine Aminotransferase 30 U/L (12-78); Albumin Level 4.9 g/dl (3.5-5.0); Albumin/Globulin Ratio 1.4 (1.1-1.8); Alkaline Phosphatase 109 U/L (38-126); Anion Gap 13.2 mEq/L (5-15); Aspartate Amino Transferase 33 U/L (14-36); Bilirubin,Total 0.7 mg/dl (0.2-1.3); Blood Urea Nitrogen 17 mg/dl (7-17); Carbon Dioxide 28 mmol/L (22.0-30.0); Creatinine Clearance Estimated 57 mL/min (50-200); Estimated Glomerular Filt Rate 215 ml/min (>60); GFR (African American) 260 ML/MIN (>60); Globulin 3.4 g/dL (1.3-3.2); Total Protein,Serum 8.3 g/dl (6.3-8.2)
[2022-05-04 14:07] LABS: Calcium 9.1 mg/dl (8.4-10.2); Glucose 141 mg/dl (74-100)
[2022-05-04 14:10] LABS: Basophils % 0.4 % (0.1-2.0); Eosinophils % 0.2 % (0.1-12.0); Hematocrit 46.6 % (37.0-47.0); Hemoglobin 15.6 g/dL (12.2-16.2); Lymphocytes # 2.1 K/mm3 (0.7-4.5); Mean Corpuscular HGB Conc 33.4 g/dL (31.8-35.4); Mean Corpuscular Hemoglobin 31.9 pg (27.0-31.2); Mean Corpuscular Volume 95.3 fl (81-99); Mean Platelet Volume 8.1 fl (7.4-10.4); Monocytes # 0.6 K/mm3 (0.1-1.0); Monocytes % 7.9 % (1.7-9.3); Neutrophils # 4.3 K/mm3 (1.8-7.8); Neutrophils % 61.5 % (37.0-80.0); Platelet Count 278 K/mm3 (142-424); Red Blood Count 4.89 M/mm3 (4.20-5.40); Red Cell Distribution Width 13.1 % (11.5-17.5)
--- NOTE | 2022-05-04 14:27 | HMH.EDGENADL ---
Discharge Plan Disposition Patient Disposition: Home, Self-Care Condition: Good Prescriptions Prescriptions: New potassium chloride 20 mEq tablet,ER particles/crystals 20 meq PO DAILY Qty: 7 0RF No Action amlodipine 5 mg tablet 5 mg PO DAILY simvastatin 40 MG tablet 40 mg PO HS omeprazole 20 MG capsule,delayed release(DR/EC) 20 mg PO BID escitalopram oxalate 20 MG tablet 20 mg PO DAILY rizatriptan 10 MG tablet,disintegrating 10 mg PO NEEDED PRN (Reason: migraines) Label Comments: DISSOLVE 1 TABLET IN MOUTH NEEDED FOR MIGRAINES oxycodone-acetaminophen 1 EACH tablet 1 each PO TID propranolol 40 MG tablet 40 mg PO BID quetiapine 200 MG tablet 200 mg PO HS Label Comments: TAKE 1 TABLET BY MOUTH EVERY DAY AT BEDTIME Referrals Follow up/Referrals: Hawk Davis MD [Primary Care Provider] - See instructions Activity Restrictions/Add. Instructions Additional Instructions/Restrictions: Drink plenty of fluids. Continue Zofran as needed for nausea. Potassium supplement as prescribed. There was a tiny amount of blood in your urine, follow-up with your primary care provider for this. Follow-up with your primary care provider, call to make appointment. Return to the emergency department if symptoms worsen. Clinical Impressions Clinical Impression: Nausea, Acute hypokalemia, Acute dehydration Instructions Patient Instructions: DI for Nausea -- Adult, DI for Hypokalemia, DI for Dehydration -- Adult Discharge ED Provider: Mohinder [facility] HPI General Chief complaint: Nausea/Vomiting/Diarrhea Stated complaint: Vomiting fatigue bodyaches Time Seen by Provider: 05/04/22 13:56 Mode of Arrival: Ambulatory Limitations: No Limitations Description of Symptoms (Recalled from ER Triage Doc. by RN): PT WITH C/O BODYACHES SINCE SUNDAY. FATIGUE, NAUSEA. History of Present Illness HPI narrative: Patient states that she has not felt well since Sunday. Her main complaint is nausea with dry heaves. She says that she has had previous hiatal hernia surgery and therefore is not able to vomit. From all of her retching and dry heaves she says that she has become achy, but was not initially achy to begin with. Denies URI symptoms or cough. Denies fever. Denies diarrhea or constipation. Denies urinary symptoms. She has dizziness, but only if she makes some big sudden movements. No dizziness at rest and no dizziness just with standing. Denies any pain anywhere. States that she had a similar episode back in February. States that she was here in the emergency room, but walked out after 4 hours. She says that she saw her primary care provider the next day. She was diagnosed with a mild urinary tract infection. She had an appointment to see her primary care provider today at 3:00, but did not feel that she could make the trip to [place] to see Dr. Davis. She has Zofran at home from the previous episode which she has taken without improvement. She says that she has continued to drink fluids, but much less than usual and is urinating less than normal. Not able to eat much. Related Data Home Medications Medication Instructions Recorded Confirmed escitalopram oxalate 20 mg tablet 20 mg PO DAILY Depression 07/05/18 03/09/22 omeprazole 20 mg capsule,delayed 20 mg PO BID GERD 07/05/18 03/09/22 release simvastatin 40 mg tablet 40 mg PO HS Cholesterol 07/05/18 03/09/22 rizatriptan 10 mg disintegrating 10 mg PO NEEDED PRN migraines 07/06/18 03/09/22 tablet propranolol 40 mg tablet 40 mg PO BID heart rate 12/17/18 03/09/22 quetiapine 200 mg tablet 200 mg PO HS MOOD 12/17/18 03/09/22 amlodipine 5 mg tablet 5 mg PO DAILY High blood pressure 02/02/20 03/09/22 oxycodone-acetaminophen 7.5 mg-325 1 each PO TID Pain 03/04/20 03/09/22 mg tablet Previous Rx's Medication Instructions Recorded potassium chloride 20 mEq 20 meq PO DAILY #7
--- NOTE | 2022-05-04 14:31 | ECG_ITS ---
APPROVED REPORT Exam: Resting ECG HR:64 bpm ECG Measurements Heart Rate 64 AXES PA 186 P 62 QRSd 81 QRS 46 QT 419 T 60 QTc 428 Conclusion SINUS RHYTHM NORMAL ECG UNCONFIRMED REPORT Electronically signed by : Hawk Davis MD 05/05/2022 08:57:45
--- NOTE | 2022-05-04 14:35 | PC.NURSE ---
pt aware of need of urine specimen, states unable to void at this time.
[2022-05-04 15:06] LABS: Microscopic, Urine URINE MICROSCOPIC (MICROSCOPIC)
[2022-05-04 15:12] LABS: Appearance,Urine CLEAR (Clear); Bilirubin,Urine Negative (Negative); Blood, Urine 1+ (Negative); Color,Urine YELLOW (Yellow); Glucose,Urine (UA) Negative (Negative); Ketones,Urine 1+ (Negative); Leukocyte Esterase,Urine TRACE (Negative); Nitrate,Urine Negative (Negative); Protein,Urine Negative (Negative); Urobilinogen,Urine 0.2 EU/dl (0.2)
[2022-05-04 15:18] LABS: Troponin I < 0.01 ng/ml (0.00-0.034)
--- NOTE | 2022-05-04 15:22 | PC.NURSE ---
ROUNDED ON PT AT THIS TIME, PT WITHOUT NEEDS AT THIS TIME
[2022-05-04 15:40] LABS: Squamous Epithelial Cell,Urine Occasional #/hpf (0-5); WBC,Urine Occasional #/hpf (0-3)
== END 2022-05-04 16:43 | disposition home or self-care (01) ==
PROVIDERS: Emergency Provider Emergency Medicine; PCP Internal Medicine Adolescent Medicine
DX: E87.6 Hypokalemia (principal); E86.0 Dehydration; R11.2 Nausea with vomiting, unspecified; F41.8 Other specified anxiety disorders; Z86.73 Personal history of transient ischemic attack (TIA), and cerebral infarction without residual deficits; E78.5 Hyperlipidemia, unspecified; I10 Essential (primary) hypertension; G43.909 Migraine, unspecified, not intractable, without status migrainosus; E07.9 Disorder of thyroid, unspecified; Z90.49 Acquired absence of other specified parts of digestive tract; Z90.710 Acquired absence of both cervix and uterus; Z20.822 Contact with and (suspected) exposure to COVID-19
CPT/HCPCS: 71045; 80053; 81001; 84484; 85025; 93005; 96361; 96374; 99285; C9803; J2405; U0003; U0005

== ENCOUNTER → 2022-05-08 11:26 | Outpatient (CLI) | payer MEDICARE, SELFPAY ==
[2022-05-08 12:53] LABS: Chloride 102 mmol/L (98-107); Sodium 139 mmol/L (136-145)
[2022-05-08 12:54] LABS: Potassium 4.3 mmoL/L (3.5-5.1)
[2022-05-08 12:56] LABS: Blood Urea Nitrogen 21 mg/dl (7-17); Estimated Glomerular Filt Rate 96 ml/min (>60); GFR (African American) 117 ML/MIN (>60)
[2022-05-08 12:57] LABS: Anion Gap 12.3 mEq/L (5-15); Calcium 8.8 mg/dl (8.4-10.2); Carbon Dioxide 29 mmol/L (22.0-30.0); Glucose 122 mg/dl (74-100)
== END ==
PROVIDERS: PCP Internal Medicine Adolescent Medicine; Visit Provider Internal Medicine Adolescent Medicine
DX: E87.6 Hypokalemia (principal)
CPT/HCPCS: 36415; 80048

== ENCOUNTER → 2022-10-16 11:18 | Outpatient (CLI) | payer MEDICARE, SELFPAY ==
[2022-10-16 14:29] LABS: Free T4 (Free Thyroxine) 0.67 ng/dl (0.78-2.19)
[2022-10-17 04:24] LABS: Triiodothyronine (T3) Free 2.5 pg/mL (2.0-4.4)
== END ==
PROVIDERS: PCP Internal Medicine Adolescent Medicine; Visit Provider Internal Medicine Adolescent Medicine
DX: R94.6 Abnormal results of thyroid function studies (principal)
CPT/HCPCS: 36415; 84439; 84443; 84481

== ENCOUNTER 2023-01-27 15:37 | Inpatient (IN) | payer MEDICARE, SELFPAY ==
[2023-01-27] VITALS (11 sets, daily range): BP systolic 132–172; BP diastolic 71–97; PULSE 88–120; RESP 16–32; TEMP 36.7–37; O2SAT 94–96; BMI 25.8; BMI 26.7
--- NOTE | 2023-01-27 15:47 | ECG_ITS ---
APPROVED REPORT Exam: Resting ECG HR:112 bpm ECG Measurements Heart Rate 112 AXES MN 184 P 19 QRSd 92 QRS 30 QT 335 T 12 QTc 401 Conclusion SINUS TACHYCARDIA ABNORMAL RHYTHM ECG UNCONFIRMED REPORT Electronically signed by : Hawk Davis MD 01/28/2023 08:39:48
--- NOTE | 2023-01-27 16:01 | CT_ITS ---
PROCEDURE INFORMATION: Exam: CT Cervical Spine Without Contrast Exam date and time: 01/27/2023 6:54 PM Age: 82 years old Clinical indication: Other: AMS; Additional info: AMS, down for unknown period of time TECHNIQUE: Imaging protocol: Computed tomography of the cervical spine without contrast. Radiation optimization: All CT scans at this facility use at least one of these dose optimization techniques: automated exposure control; mA and/or kV adjustment per patient size (includes targeted exams where dose is matched to clinical indication); or iterative reconstruction. REPORTING DATA: Count of CT and Cardiac NM exams in prior 12 months: This patient has received [address] and 0 known cardiac nuclear medicine studies in the 12 months prior to the current study. COMPARISON: BONEWB NM bone scan whole body 10/15/2017 1:28 PM FINDINGS: Bones/joints: Congenital non-fusion of the posterior arch of C1. Vertebral alignment is maintained. There is preservation of vertebral body heights. Facet joints are aligned. Odontoid process is intact. Atlantoaxial interval maintained. No acute fracture. Uncovertebral and facet arthropathy result in varying degrees of neural foraminal narrowing at multiple levels. Lungs: Lung apices are normal. Soft tissues: Prevertebral and paravertebral soft tissues are maintained IMPRESSION: No acute fracture. No traumatic subluxation.
--- NOTE | 2023-01-27 16:01 | CT_ITS ---
PROCEDURE INFORMATION: Exam: CT Head Without Contrast Exam date and time: 01/27/2023 6:51 PM Age: 82 years old Clinical indication: Altered mental status/memory loss; Additional info: AMS, down for unknown period of time TECHNIQUE: Imaging protocol: Computed tomography of the head without contrast. Radiation optimization: All CT scans at this facility use at least one of these dose optimization techniques: automated exposure control; mA and/or kV adjustment per patient size (includes targeted exams where dose is matched to clinical indication); or iterative reconstruction. REPORTING DATA: Count of CT and Cardiac NM exams in prior 12 months: This patient has received [address] and 0 known cardiac nuclear medicine studies in the 12 months prior to the current study. COMPARISON: CT HEAD/BRAIN WO CON 03/07/2022 8:56 PM FINDINGS: Brain: There is no evidence of acute intracranial hemorrhage, extra-axial collection or locoregional mass effect. There are scattered hypodensities in the periventricular and subcortical white matter. The appearance is nonspecific, but most likely represents chronic small vessel disease in a person of this age Cerebral ventricles: There is diffuse prominence of the ventricles and CSF containing spaces which can be attributed to age-related volume loss. No hydrocephalus or midline shift identified. Pituitary gland and sella: Sellar/parasellar structures, craniocervical junction and orbits are unremarkable Paranasal sinuses: Visualized sinuses are unremarkable. No fluid levels. Mastoid air cells: Visualized mastoid air cells are well aerated. Bones/joints: No calvarial fracture Soft tissues: Unremarkable. IMPRESSION: No acute intracranial abnormality. No calvarial fracture.
--- NOTE | 2023-01-27 16:01 | CT_ITS ---
PROCEDURE INFORMATION: Exam: CTA Chest With Contrast Exam date and time: 01/27/2023 6:58 PM Age: 82 years old Clinical indication: Other: AMS; Additional info: AMS, down for unknown period of time TECHNIQUE: Imaging protocol: Computed tomographic angiography of the chest with contrast. Exam focused on the arteries. 3D rendering (Not supervised by radiologist): MIP and/or 3D reconstructed images were created by the technologist. Radiation optimization: All CT scans at this facility use at least one of these dose optimization techniques: automated exposure control; mA and/or kV adjustment per patient size (includes targeted exams where dose is matched to clinical indication); or iterative reconstruction. Contrast material: ISOVUE; Contrast volume: 70 ml; Contrast route: INTRAVENOUS (IV); REPORTING DATA: Count of CT and Cardiac NM exams in prior 12 months: This patient has received [address] and 0 known cardiac nuclear medicine studies in the 12 months prior to the current study. COMPARISON: CR XR CHEST PORTABLE 05/04/2022 2:34 PM FINDINGS: Pulmonary arteries: Normal. No pulmonary emboli. Aorta: Unremarkable. No aortic aneurysm. No aortic dissection. Thyroid: Multiple low-density lesions in both sides of the thyroid gland suggesting cysts. Right lobe of the thyroid gland is mildly enlarged. Lungs: Subsegmental atelectasis noted in the bilateral lower lobes and lingula. Moderate consolidative atelectasis in the right middle lobe. Pleural spaces: Unremarkable. No pneumothorax. No pleural effusion. Heart: Unremarkable. No cardiomegaly. No pericardial effusion. Lymph nodes: Unremarkable. No enlarged lymph nodes. Liver: Multiple simple appearing liver cysts partially visualized. Gallbladder and bile ducts: Gallbladder is surgically absent. Bones/joints: Moderate degenerative changes throughout the thoracic spine. No vertebral body compression or acute fracture. Soft tissues: Unremarkable. IMPRESSION: 1. No evidence of pulmonary embolus 2. Right middle lobe consolidative atelectasis which may represent bland atelectasis or pneumonia. Subsegmental atelectasis noted in the bilateral lower lung lobes and lingula. Other incidental findings as noted. COMMENTS: Consistent with the [employer] [place] [employer]'s Incidental Findings Committee white paper (J Am Gabrielle Radiol 2015): In patients aged 35 years and older with an incidental thyroid nodule equal to or greater than 1.[address], MRI or extrathyroidal US, further evaluation with dedicated thyroid US is recommended for patients with normal life expectancy and without comorbidities. For smaller nodules without suspicious features, no further evaluation or follow up is recommended.
--- NOTE | 2023-01-27 16:03 | XR_ITS ---
PROCEDURE INFORMATION: Exam: XR Pelvis Exam date and time: 01/27/2023 6:20 PM Age: 82 years old Clinical indication: Injury or trauma; Fall; Blunt trauma (contusions or hematomas); Bilateral; Hip TECHNIQUE: Imaging protocol: Radiologic exam of the pelvis. Views: 1 or 2 view. COMPARISON: ABDPELW/WO CT ABD PELVIS W/WO CONTRAST 09/11/2016 10:14 AM FINDINGS: Bones/joints: Unremarkable. No acute fracture. Soft tissues: Unremarkable. IMPRESSION: No acute findings.
[2023-01-27 16:49] LABS: Coronavirus 19, PCR Not Detected (NotDetected); Influenza A, PCR Not Detected (NotDetected); Influenza B, PCR Not Detected (NotDetected)
--- NOTE | 2023-01-27 17:05 | HMH.EDGENADL ---
Discharge Plan Disposition Patient Disposition: Admitted Condition: Good Clinical Impressions Clinical Impression: Pneumonia, Rhabdomyolysis, AMS (altered mental status) Discharge ED Provider: Darshana Prado General Adult HPI General Chief complaint: Shortness of Breath/Dyspnea Stated complaint: trouble breathing Time Seen by Provider: 01/27/23 15:51 Mode of Arrival: Ambulatory Source of Information: Patient and Relative Limitations: No Limitations Description of Symptoms (Recalled from ER Triage Doc. by RN): 82 yo F presents to ED with c/o fall, weakness, confusion. pts son states that beginning pt was acting different . son states that he called pt today and she did not answer, he went to her house. pt was unable to get up and answer the door at first. son reports banging on the door and finally pt answered the door. pt states that she had a fall and had been laying on the floor in the bathroom, unknown amount of time. pt reports that she has been short of breath for a few days. History of Present Illness HPI narrative: This patient is an 82-year-old female with a history of CVA with residual left-sided deficits, sleep disturbance on multiple medications for sleep, hypertension, and hyperlipidemia presenting to the emergency department for evaluation with concern for altered mental status. According to the patient's son, he had last talked to her afternoon, at which point she was normal. He tried to call her yesterday, but he did not get a hold of her. He also tried to call today, but he was not able to get a hold of her either. He finally showed up to her house, knocked on the door, and after quite some time she came and unlocked the door for him. He found her to be confused. Patient notes that she was unable to get up to get to the door at first, though she can hear them knocking. She is still confused at this time on what has happened over the last few days, but she remembers waking up in the floor at some point. She is unsure how she got down there or how long she had been down there. She notes that she has not been eating or drinking very much and has also been having a lot of issues with sleeping and feeling tired. She denies any symptoms at this time, such as pain or other issues. Her son states that she looks to be at her neurologic baseline aside from the confusion with no new neurologic deficits that he can appreciate. He does note that it looks like she is having more trouble breathing than usual. No recent fevers, chills, cough, congestion, chest pain, shortness of breath, abdominal pain, nausea, vomiting or change in bowel movements, rashes, swelling, or other concerns noted per the patient. Related Data Home Medications Medication Instructions Recorded Confirmed escitalopram oxalate 20 mg tablet 20 mg PO DAILY Depression 07/05/18 01/27/23 simvastatin 40 mg tablet 40 mg PO HS Cholesterol 07/05/18 01/27/23 quetiapine 200 mg tablet 200 mg PO HS MOOD 12/17/18 01/27/23 amlodipine 5 mg tablet 5 mg PO DAILY High blood pressure 02/02/20 01/27/23 oxycodone-acetaminophen 7.5 mg-325 1 each PO TID Pain 03/04/20 01/27/23 mg tablet carvedilol 25 mg tablet 25 mg PO BID 01/27/23 01/27/23 Allergies Allergy/AdvReac Type Severity Reaction Status Date / Time haloperidol [From HALDOL] Allergy Unknown Verified 03/08/20 13:59 [facility] Disclaimer: The information contained in this section may have been updated after the patient was seen, as this information can be updated by other users. Medical History Anxiety Depression History of anemia History of stroke Hyperlipidemia Hypertension Migraine Thyroid disease Surgical History History of cholecystectomy History of hysterectomy Family History (Updated 01/27/23 @ 20:48 by Myriam Fisher RN) Other No significant family history
[2023-01-27 17:25] LABS: Lactic Acid 1.9 mmol/L (0.7-2.1)
[2023-01-27 17:26] LABS: Alanine Aminotransferase 58 U/L (12-78); Albumin Level 4.5 g/dl (3.5-5.0); Albumin/Globulin Ratio 1.5 (1.1-1.8); Alkaline Phosphatase 105 U/L (38-126); Anion Gap 14.9 mEq/L (5-15); Aspartate Amino Transferase 108 U/L (14-36); Bilirubin,Total 0.5 mg/dl (0.2-1.3); Blood Urea Nitrogen 24 mg/dl (7-17); Calcium 9.2 mg/dl (8.4-10.2); Carbon Dioxide 29 mmol/L (22.0-30.0); Chloride 101 mmol/L (98-107); Creatinine Clearance Estimated 53 mL/min (50-200); Estimated Glomerular Filt Rate 96 ml/min (>60); GFR (African American) 116 ML/MIN (>60); Glucose 132 mg/dl (74-100); Lipase 458 U/L (23-300); Potassium 3.9 mmoL/L (3.5-5.1); Sodium 141 mmol/L (136-145); Total Protein,Serum 7.5 g/dl (6.3-8.2)
[2023-01-27 17:28] LABS: Acetaminophen < 10 ug/ml (10-30); Salicylate < 1.0 mg/dL (2.0-20.0)
[2023-01-27 17:31] LABS: Basophils % 0.4 % (0.1-2.0); Eosinophils # 0.1 K/mm3 (0.0-0.4); Eosinophils % 1.1 % (0.1-12.0); Hematocrit 44.6 % (37.0-47.0); Hemoglobin 14.9 g/dL (12.2-16.2); Lymphocytes # 1.2 K/mm3 (0.7-4.5); Lymphocytes % 15.4 % (10-50); Mean Corpuscular HGB Conc 33.5 g/dL (31.8-35.4); Mean Corpuscular Hemoglobin 33.8 pg (27.0-31.2); Mean Platelet Volume 9.1 fl (7.4-10.4); Monocytes # 0.5 K/mm3 (0.1-1.0); Monocytes % 5.9 % (1.7-9.3); Neutrophils # 6.2 K/mm3 (1.8-7.8); Neutrophils % 77.3 % (37.0-80.0); Platelet Count 175 K/mm3 (142-424); Red Blood Count 4.41 M/mm3 (4.20-5.40); Red Cell Distribution Width 12.1 % (11.5-17.5)
--- NOTE | 2023-01-27 17:31 | CT_ITS ---
PROCEDURE INFORMATION: Exam: CT Abdomen And Pelvis With Contrast Exam date and time: 01/27/2023 6:58 PM Age: 82 years old Clinical indication: Vomiting; Additional info: Vomiting , elevated lipase TECHNIQUE: Imaging protocol: Computed tomography of the abdomen and pelvis with contrast. Radiation optimization: All CT scans at this facility use at least one of these dose optimization techniques: automated exposure control; mA and/or kV adjustment per patient size (includes targeted exams where dose is matched to clinical indication); or iterative reconstruction. Contrast material: ISOVUE; Contrast volume: 70 ml; Contrast route: IV; REPORTING DATA: Count of CT and Cardiac NM exams in prior 12 months: This patient has received [address] and 0 known cardiac nuclear medicine studies in the 12 months prior to the current study. COMPARISON: CR XR PELVIS 1-2V 01/27/2023 6:20 PM FINDINGS: Liver: Several simple appearing cysts noted in the liver, the largest measuring 52.5 cm in the right lobe. Gallbladder and bile ducts: The gallbladder is surgically absent. Pancreas: Normal. No ductal dilation. Spleen: Normal. No splenomegaly. Adrenal glands: Normal. No mass. Kidneys and ureters: Normal. No hydronephrosis. Stomach and bowel: Unremarkable. No obstruction. No mucosal thickening. Appendix: The appendix is visualized and appears normal. Intraperitoneal space: Unremarkable. No free air. No significant fluid collection. Vasculature: Moderate atherosclerotic calcification of the aorta. No evidence of aneurysm or dissection. Lymph nodes: Unremarkable. No enlarged lymph nodes. Urinary bladder: Unremarkable as visualized. Reproductive: Unremarkable as visualized. Bones/joints: Moderate levoscoliosis of the lumbar spine. Moderate multilevel degenerative disc changes and facet arthropathy. No vertebral body compression or acute fracture. Soft tissues: Unremarkable. IMPRESSION: No acute abnormality. Chronic appearing findings as noted.
[2023-01-27 17:35] LABS: NT Pro Brain Natriuretic Pep. 203 pg/mL (0-450)
[2023-01-27 17:39] LABS: Troponin I < 0.01 ng/ml (0.00-0.034)
[2023-01-27 17:43] LABS: T4 (Thyroxine) 4.9 ug/dl (5.53-11.0)
[2023-01-27 17:47] LABS: VBG Base Excess -1.4 mmol/L (-2.4-2.3); VBG HCO3 24.6 mmol/L (23-30); VBG Oxygen Saturation 64.3 % (50-70); VBG PCO2 48.3 mmol/L (35-51); VBG PH 7.33 mmol/L (7.31-7.41); VBG PO2 33.9 mmol/L (28-40); VBG Total CO2 26.1 mmol/L (23-27)
[2023-01-27 17:47] LABS: Microscopic, Urine URINE MICROSCOPIC (MICROSCOPIC)
[2023-01-27 17:50] LABS: Appearance,Urine CLEAR (Clear); Bilirubin,Urine Negative (Negative); Blood, Urine TRACE-I (Negative); Color,Urine YELLOW (Yellow); Glucose,Urine (UA) Negative (Negative); Ketones,Urine Negative (Negative); Leukocyte Esterase,Urine Negative (Negative); Nitrate,Urine Negative (Negative); Protein,Urine Negative (Negative); Specific Gravity, Urine 1.025 (1.005-1.030); Urobilinogen,Urine 0.2 EU/dl (0.2)
[2023-01-27 17:57] LABS: Thyroid Stimulating Hormone < 0.02 uIU/mL (0.465-4.68)
[2023-01-27 18:02] LABS: Barbiturates Screen,Urine Negative ng/ml (<200)
[2023-01-27 18:03] LABS: Amphetamine/Metha Screen,Urine Negative ng/ml (<1000); Benzodiazepines Screen,Urine Positive ng/ml (<200)
[2023-01-27 18:06] LABS: Cannabinoid Screen,Urine Negative ng/ml (<50); Cocaine Screen,Urine Negative ng/ml (<300); Methadone Screen,Urine Negative ng/ml (<300); Opiate Screen,Urine Positive ng/ml (<300)
[2023-01-27 18:07] LABS: Phencyclidine Screen,Urine Negative ng/ml (<25)
[2023-01-27 18:07] LABS: Creatine Kinase 4186 U/L (30-135)
[2023-01-27 18:34] LABS: Bacteria,Urine Trace /lpf; RBC,Urine Occasional #/hpf (0-3); Squamous Epithelial Cell,Urine Occasional #/hpf (0-5); WBC,Urine Occasional #/hpf (0-3)
--- NOTE | 2023-01-27 19:11 | PC.NURSE ---
paged Dr. 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
--- NOTE | 2023-01-27 19:19 | PC.NURSE ---
Dr. Prado speaking with Dr. Frances at this time.
--- NOTE | 2023-01-27 19:25 | PC.NURSE ---
patient given sandwich, chips and drink. visitor at bedside
--- NOTE | 2023-01-27 19:30 | PC.NURSE ---
Admitting notified of admission
--- NOTE | 2023-01-27 20:04 | PC.NURSE ---
Pt arrived to floor via wheelchair @ 1957
[2023-01-27 20:24] LABS: Troponin I < 0.01 ng/ml (0.00-0.034)
[2023-01-27 23:10] LABS: Troponin I 0.01 ng/ml (0.00-0.034)
[2023-01-28] VITALS (7 sets, daily range): BP systolic 132–158; BP diastolic 61–87; PULSE 69–114; RESP 16–20; TEMP 36.5–36.9; O2SAT 92–97; BMI 27.1
--- NOTE | 2023-01-28 08:24 | EXP.HP ---
History of Present Illness *Admission Date: 01/28/23 *Reason for visit:: Mental status changes/syncope/rhabdomyolysis *History of present illness: HPI narrative: This patient is an 82-year-old female with a history of CVA with residual left-sided deficits, sleep disturbance on multiple medications for sleep, hypertension, and hyperlipidemia presenting to the emergency department for evaluation with concern for altered mental status. According to the patient's son, he had last talked to her afternoon, at which point she was normal. He tried to call her yesterday, but he did not get a hold of her. He also tried to call today, but he was not able to get a hold of her either. He finally showed up to her house, knocked on the door, and after quite some time she came and unlocked the door for him. He found her to be confused. Patient notes that she was unable to get up to get to the door at first, though she can hear them knocking. She is still confused at this time on what has happened over the last few days, but she remembers waking up in the floor at some point. She is unsure how she got down there or how long she had been down there. She notes that she has not been eating or drinking very much and has also been having a lot of issues with sleeping and feeling tired. She denies any symptoms at this time, such as pain or other issues. Her son states that she looks to be at her neurologic baseline aside from the confusion with no new neurologic deficits that he can appreciate. He does note that it looks like she is having more trouble breathing than usual. No recent fevers, chills, cough, congestion, chest pain, shortness of breath, abdominal pain, nausea, vomiting or change in bowel movements, rashes, swelling, or other concerns noted per the patient. Above note per emergency department physician. Agree with above narrative. Patient tells me that she cannot recall any cough or congestion other than a lingering dry cough over the past 3 to 4 days. She had an episode of vomiting and diarrhea about 2 weeks ago but since that time has been doing well. She denies any change or increase in medication dose or frequency. [facility] Disclaimer: The information contained in this section may have been updated after the patient was seen, as this information can be updated by other users. Medical History (Updated 01/28/23 @ 08:26 by Hawk Davis MD) Anxiety Depression History of anemia History of stroke Hyperlipidemia Hypertension Migraine Thyroid disease Surgical History History of cholecystectomy History of hysterectomy Family History (Updated 01/27/23 @ 20:48 by Myriam Fisher RN) No significant family history Social History (Updated 01/27/23 @ 20:48 by Myriam Fisher RN) Smoking Status: Never smoker alcohol intake: current substance use type: denies use current occupational status: retired Travel in the last 8 weeks: None household members: spouse housing: house current occupational exposures/hazards: No caffeine: Yes Meds Home Medications and Allergies Home Medications Medication Instructions Recorded Confirmed Type escitalopram oxalate 20 mg tablet 20 mg PO DAILY Depression 07/05/18 01/27/23 History simvastatin 40 mg tablet 40 mg PO HS Cholesterol 07/05/18 01/27/23 History amlodipine 5 mg tablet 5 mg PO DAILY High blood pressure 02/02/20 01/27/23 History oxycodone-acetaminophen 7.5 mg-325 1 each PO TID Pain 03/04/20 01/27/23 History mg tablet carvedilol 25 mg tablet 25 mg PO BID 01/27/23 01/27/23 History quetiapine 400 mg tablet 400 mg PO HS Mood 01/28/23 01/28/23 History New Prescriptions to Start Prescriptions: Allergies Allergy/AdvReac Type Severity Reaction Status Date / Time haloperidol [From HALDOL] Allergy Unknown Verified 03/08/20 13:59 Exam Data for Last 24 hours Vital signs and Labs for L
--- NOTE | 2023-01-28 08:54 | HMH.PHAINT1 ---
Pharmacy Intervention Comments: MEDICATION RECONCILIATION COMPLETED ON PATIENT USING EXTERNAL FILL HISTORY FROM PHARMACY AND [facility] REPORT. -DORIE MALONEY, DEZD
--- NOTE | 2023-01-28 13:49 | HMH.PTEV ---
Physical Therapy Evaluation Rehab PT IP Evaluation Start: 01/28/23 08:12 Freq: ONCE Status: Active Protocol: Document 01/28/23 13:41 HWADE (Rec: 01/28/23 13:49 HWADE [id number]) Subjective/History History History Pt is a 82 year old female that presented to [facility] ED with concern for AMS. Per pt and son, her son attempted to check on pt and found her to be confused and had difficulty remembering what happened the past few days. Imaging performed in ED was negative for acute abnormalities. Pt was admitted for further assesssment and evaluation. PMH: Anxiety Depression History of anemia History of stroke Hyperlipidemia Hypertension Migraine Thyroid disease CVA Subjective Subjective Pt presents in semi-fowlers position in bed, pleasant and agreeable to PT initial evaluation. Pt denies reports of pain at rest. Pt AOx4. Pt reports that she lives at home alone in a H with 2 CODY, (I ) with all B/IADL's at baseline and ambulates without an AD. Pt performed all bed mobility tasks with mod (I), sit <> stand transfer with mod (I) and ambulation x30' with mod ( I). No LOB or safety concerns noted during initial evaluatoin New diagnosis of cancer in past 12 No months? Rehab PT IP Eval Objective Appearance Patient Behavior Appropriate,Cooperative Patient Orientation Person,Place,Time,Situation Difficulty following instructions none Speech Pattern Clear,Appropriate Ambulation Patient Able to Ambulate Yes Ambulation Observation IP General Gait Pattern Observation No Deviations/Normal Ambulation Distance (feet) 30 Ambulation Assistive Device None Ambulation Ability
--- NOTE | 2023-01-28 17:20 | PC.NURSE ---
Patient alert and oriented and walks with minimum assistance. Patient's vital signs stable.
[2023-01-29] VITALS: PULSE 84
[2023-01-29 04:00] VITALS: PULSE 88; BMI 26.9
[2023-01-29 05:00] VITALS: BP 108/54; PULSE 87; RESP 18; TEMP 37.1; O2SAT 97
--- NOTE | 2023-01-29 05:15 | PC.NURSE ---
Patient has had a great night tonight. Has been able to rest most of it. Has been up to the bathroom multiple times. No issues noted.
[2023-01-29 06:15] LABS: Basophils % 0.5 % (0.1-2.0); Eosinophils # 0.1 K/mm3 (0.0-0.4); Eosinophils % 2.2 % (0.1-12.0); Hemoglobin 12.9 g/dL (12.2-16.2); Lymphocytes # 1.6 K/mm3 (0.7-4.5); Lymphocytes % 26.2 % (10-50); Mean Corpuscular HGB Conc 33.9 g/dL (31.8-35.4); Mean Corpuscular Hemoglobin 34.1 pg (27.0-31.2); Mean Corpuscular Volume 100.5 fl (81-99); Mean Platelet Volume 9.4 fl (7.4-10.4); Monocytes # 0.5 K/mm3 (0.1-1.0); Monocytes % 7.5 % (1.7-9.3); Neutrophils # 3.8 K/mm3 (1.8-7.8); Neutrophils % 63.6 % (37.0-80.0); Platelet Count 158 K/mm3 (142-424); Red Blood Count 3.78 M/mm3 (4.20-5.40); Red Cell Distribution Width 12.4 % (11.5-17.5)
[2023-01-29 06:26] LABS: Alanine Aminotransferase 47 U/L (12-78); Albumin Level 3.4 g/dl (3.5-5.0); Albumin/Globulin Ratio 1.3 (1.1-1.8); Alkaline Phosphatase 78 U/L (38-126); Anion Gap 9.2 mEq/L (5-15); Aspartate Amino Transferase 90 U/L (14-36); Bilirubin,Total 0.3 mg/dl (0.2-1.3); Blood Urea Nitrogen 7 mg/dl (7-17); Calcium 8.3 mg/dl (8.4-10.2); Carbon Dioxide 26 mmol/L (22.0-30.0); Chloride 107 mmol/L (98-107); Creatinine Clearance Estimated 55 mL/min (50-200); Estimated Glomerular Filt Rate 154 ml/min (>60); GFR (African American) 186 ML/MIN (>60); Globulin 2.6 g/dL (1.3-3.2); Glucose 116 mg/dl (74-100); Potassium 3.2 mmoL/L (3.5-5.1); Sodium 139 mmol/L (136-145)
[2023-01-29 06:45] LABS: Creatine Kinase 2770 U/L (30-135)
[2023-01-29 07:54] VITALS: BP 158/99; PULSE 91; RESP 16; TEMP 36.5; O2SAT 97
--- NOTE | 2023-01-29 10:59 | EXP.DC.SUM ---
General Admission date:: 01/27/23 Discharge date: 01/29/23 HPI HPI HPI: HPI narrative: This patient is an 82-year-old female with a history of CVA with residual left-sided deficits, sleep disturbance on multiple medications for sleep, hypertension, and hyperlipidemia presenting to the emergency department for evaluation with concern for altered mental status. According to the patient's son, he had last talked to her afternoon, at which point she was normal. He tried to call her yesterday, but he did not get a hold of her. He also tried to call today, but he was not able to get a hold of her either. He finally showed up to her house, knocked on the door, and after quite some time she came and unlocked the door for him. He found her to be confused. Patient notes that she was unable to get up to get to the door at first, though she can hear them knocking. She is still confused at this time on what has happened over the last few days, but she remembers waking up in the floor at some point. She is unsure how she got down there or how long she had been down there. She notes that she has not been eating or drinking very much and has also been having a lot of issues with sleeping and feeling tired. She denies any symptoms at this time, such as pain or other issues. Her son states that she looks to be at her neurologic baseline aside from the confusion with no new neurologic deficits that he can appreciate. He does note that it looks like she is having more trouble breathing than usual. No recent fevers, chills, cough, congestion, chest pain, shortness of breath, abdominal pain, nausea, vomiting or change in bowel movements, rashes, swelling, or other concerns noted per the patient. Above note per emergency department physician. Agree with above narrative. Patient tells me that she cannot recall any cough or congestion other than a lingering dry cough over the past 3 to 4 days. She had an episode of vomiting and diarrhea about 2 weeks ago but since that time has been doing well. She denies any change or increase in medication dose or frequency. Hospital Course Hospital Course Hospital Course: Patient was admitted, placed on antibiotics. Improved. Electrolyte disturbances were resolved. She improved very nicely and wished to go home the following day but we kept her 1 more day to watch her electrolytes, white count and PT evaluation. Labs are stable, PT felt she was at her baseline and recommended PT appointment as an outpatient. Plan will be to discharge home today with p.o. antibiotics, I will see her in 5 days for hospital follow-up and decide upon PT at that point. Exam Data for Last 24 hours Vital signs and Labs for Last 24 Hours: Temp Pulse Resp BP Pulse Ox O2 Del Method 97.7 F 91 H 16 158/99 H 97 Room Air 01/29/23 07:54 01/29/23 07:54 01/29/23 07:54 01/29/23 07:54 01/29/23 07:54 01/29/23 07:54 Laboratory Results - last 24 hr 01/29/23 05:54: WBC 6.0, RBC 3.78 L, Hgb 12.9, Hct 38.0, MCV 100.5 H, MCH 34.1 H, MCHC 33.9, RDW 12.4, Plt Count 158, MPV 9.4, Neut % (Auto) 63.6, Lymph % (Auto) 26.2, Lane % (Auto) 7.5, Eos % (Auto) 2.2, Baso % (Auto) 0.5, Neut # (Auto) 3.8, Lymph # (Auto) 1.6, Lane # (Auto) 0.5, Eos # (Auto) 0.1, Baso # (Auto) 0.0, Sodium 139, Potassium 3.2 L, Chloride 107, Carbon Dioxide 26, Anion Gap 9.2, BUN 7 D, Creatinine 0.40 L D, Estimated Creat Clear 55, Estimated GFR 154, Est GFR ( Amer) 186 D, Glucose 116 H, Calcium 8.3 L, Total Bilirubin 0.3, AST 90 H, ALT 47, Alkaline Phosphatase 78, Total Creatine Kinase 2770 H* D, Total Protein 6.0 L, Albumin 3.4 L, Globulin 2.6, Albumin/Globulin Ratio 1.3 I & O for Last 24 hours: Intake & Output 01/26/23 01/27/23 01/28/23 01/29/23 11:59 11:59 11:59 11:59 Intake Total 1589 / 1589 1300 / 1300 Output Total 300 / 300 0 / 0 Balance 1289 / 1289 1300 / 1300 Weight 172 lb 14.4 oz 171 lb 11.2 oz *Routine Neurological Exam Neurologic
--- NOTE | 2023-01-29 11:00 | HMH.OTEV ---
OT Inpatient Evaluation Rehab OT IP Evaluation Start: 01/28/23 08:12 Freq: ONCE Status: Active Protocol: Document 01/29/23 10:51 AJAYKEVIN (Rec: 01/29/23 11:00 KASSY [id number]) Rehab OT IP Assessment Subjective History This patient is an 82-year-old female with a history of CVA with residual left-sided deficits, sleep disturbance on multiple medications for sleep, hypertension, and hyperlipidemia presenting to the emergency department for evaluation with concern for altered mental status. According to the patient's son , he had last talked to her afternoon, at which point she was normal. He tried to call her yesterday, but he did not get a hold of her. He also tried to call today, but he was not able to get a hold of her either. He finally showed up to her house , knocked on the door, and after quite some time she came and unlocked the door for him . He found her to be confused . Patient notes that she was unable to get up to get to the door at first, though she can hear them knocking. She is still confused at this time on what has happened over the last few days, but she remembers waking up in the floor at some point. She is unsure how she got down there or how long she had been down there. She notes that she has not been eating or drinking very much and has also been having a lot of issues with sleeping and feeling tired. She denies any symptoms at this time, such as pain or other issues. Her son states that she looks to be at her neurologic baseline aside from the confusi
--- NOTE | 2023-01-30 13:00 | CARE MANAGER ---
Contacted patient related to hospital discharge. She states she is feeling well and denies any questions or concerns. She picked up her medication and is aware of her follow up appointment. TRACI Ibrahim
== END 2023-01-29 12:17 | disposition home or self-care (01) | DRG 194 ==
LOC: ER 19:20 → 2ND 19:45
PROVIDERS: Admitting Provider Family Medicine; Emergency Provider Emergency Medicine; PCP Internal Medicine Adolescent Medicine; Visit Provider Internal Medicine Adolescent Medicine
DX: J18.9 Pneumonia, unspecified organism (principal); F33.9 Major depressive disorder, recurrent, unspecified; M62.82 Rhabdomyolysis; I69.354 Hemiplegia and hemiparesis following cerebral infarction affecting left non-dominant side; Z79.891 Long term (current) use of opiate analgesic; F41.9 Anxiety disorder, unspecified; E78.5 Hyperlipidemia, unspecified; I10 Essential (primary) hypertension; W19.XXXA Unspecified fall, initial encounter
CPT/HCPCS: 36415; 70450; 71275; 72125; 72170; 74177; 80053; 80305; 80329; 81001; 82550; 82803; 83605; 83690; 83735; 83880; 84436; 84443; 84484; 85025; 87040; 87636; 93005; 97116; 97162; 97165; 99285; J0456; J0696; Q9967

== ENCOUNTER 2023-03-21 14:00 | Outpatient (RCR) | payer MEDICARE, SELFPAY | END 2023-03-21 15:00 | disposition home or self-care (01) | LOC: PT 14:00 | PROVIDERS: PCP Internal Medicine Adolescent Medicine; Visit Provider Internal Medicine Adolescent Medicine | DX: I69.398 Other sequelae of cerebral infarction (principal); R53.1 Weakness; R26.9 Unspecified abnormalities of gait and mobility | CPT/HCPCS: 97110; 97163 ==

== ENCOUNTER 2023-03-28 11:01 | Outpatient (CLI) | payer MEDICARE, SELFPAY ==
[2023-03-28 11:23] LABS: Basophils # 0.1 K/mm3 (0-0.2); Eosinophils # 0.2 K/mm3 (0.0-0.4); Eosinophils % 3.5 % (0.1-12.0); Hematocrit 44.3 % (37.0-47.0); Hemoglobin 14.7 g/dL (12.2-16.2); Lymphocytes # 1.8 K/mm3 (0.7-4.5); Lymphocytes % 30.5 % (10-50); Mean Corpuscular HGB Conc 33.2 g/dL (31.8-35.4); Mean Corpuscular Hemoglobin 33.4 pg (27.0-31.2); Mean Corpuscular Volume 100.7 fl (81-99); Mean Platelet Volume 8.9 fl (7.4-10.4); Monocytes # 0.3 K/mm3 (0.1-1.0); Monocytes % 5.2 % (1.7-9.3); Neutrophils # 3.5 K/mm3 (1.8-7.8); Neutrophils % 59.8 % (37.0-80.0); Platelet Count 169 K/mm3 (142-424); Red Blood Count 4.39 M/mm3 (4.20-5.40); Red Cell Distribution Width 12.9 % (11.5-17.5); White Blood Count 5.8 K/mm3 (4.8-10.8)
--- NOTE | 2023-03-28 11:27 | XR_ITS ---
FINAL REPORT CLINICAL HISTORY: CHILLS (WITHOUT FEVER)/NAUSEA COMPARISON: 03/07/2022 FINDINGS: Chest: The heart and mediastinal within normal limits. There are small pleural effusions. There is no pneumothorax. Osseous structures are unremarkable. Abdomen: AP and upright views of the abdomen were obtained. There is a moderate to large stool burden. No abnormal calcifications are identified. Postoperative changes are noted in the right upper quadrant. There is degenerative change of the lumbar spine with levoscoliosis. IMPRESSION: Small pleural effusions. Moderate to large stool burden. Reviewed, Interpreted and Dictated by Aman Feliciano III, MD Transcribed by Mirtha Nicole Authenticated and [facility]
[2023-03-28 11:59] LABS: Chloride 106 mmol/L (98-107); Sodium 142 mmol/L (136-145)
[2023-03-28 12:00] LABS: Potassium 4.4 mmoL/L (3.5-5.1)
[2023-03-28 12:02] LABS: Alanine Aminotransferase 34 U/L (12-78); Albumin Level 4.5 g/dl (3.5-5.0); Albumin/Globulin Ratio 1.7 (1.1-1.8); Alkaline Phosphatase 111 U/L (38-126); Anion Gap 14.4 mEq/L (5-15); Aspartate Amino Transferase 32 U/L (14-36); Bilirubin,Total 0.5 mg/dl (0.2-1.3); Blood Urea Nitrogen 24 mg/dl (7-17); Carbon Dioxide 26 mmol/L (22.0-30.0); Estimated Glomerular Filt Rate 96 ml/min (>60); GFR (African American) 116 ML/MIN (>60); Globulin 2.7 g/dL (1.3-3.2); Total Protein,Serum 7.2 g/dl (6.3-8.2)
[2023-03-28 12:03] LABS: Calcium 9.4 mg/dl (8.4-10.2); Erythrocyte Sedimentation Rate 9 mm/hr (0-30); Glucose 107 mg/dl (74-100)
[2023-03-28 12:33] LABS: Thyroid Stimulating Hormone < 0.02 uIU/mL (0.465-4.68)
== END 2023-03-28 23:59 ==
LOC: LAB 11:03
PROVIDERS: PCP Internal Medicine Adolescent Medicine; Visit Provider Internal Medicine Adolescent Medicine
DX: R11.0 Nausea; R68.83 Chills (without fever); E05.90 Thyrotoxicosis, unspecified without thyrotoxic crisis or storm
CPT/HCPCS: 36415; 74021; 80053; 84443; 85025; 85651

== ENCOUNTER 2023-04-27 08:21 | Outpatient (CLI) | payer MEDICARE, SELFPAY ==
--- NOTE | 2023-04-27 08:29 | CT_ITS ---
FINAL REPORT CLINICAL HISTORY: TRAUMATIC HEAD INJURY fall 2 weeks ago, left sided head trauma COMPARISON: 01/27/2023 FINDINGS: Axial images of the head were obtained without contrast. Coronal reformatted images were also obtained. This study was performed with techniques to keep radiation doses as low as reasonably achievable (ALARA). Individualized dose reduction techniques using automated exposure control or adjustment of mA and/or kV according to the patient''s size were employed. There is generalized age-appropriate atrophy. Periventricular low-attenuation areas are seen consistent with mild chronic ischemic changes. There is a right posterior frontal area of encephalomalacia, stable. There is no evidence of intracranial hemorrhage or mass. There is no evidence of acute infarct. There is no evidence of shift of the midline structures. No skull abnormality is seen on the bone window images. IMPRESSION: Atrophy and mild periventricular chronic ischemic changes. No acute intracranial abnormality identified. Reviewed, Interpreted and Dictated by Aman Feliciano III, MD Transcribed by Rakel Whitney Authenticated and [facility]
== END 2023-04-27 23:59 ==
LOC: RAD 08:22
PROVIDERS: PCP Internal Medicine Adolescent Medicine; Visit Provider Internal Medicine Adolescent Medicine
DX: S09.90XA Unspecified injury of head, initial encounter (principal); Y99.9 Unspecified external cause status
CPT/HCPCS: 70450

== ENCOUNTER → 2023-08-23 20:16 | Outpatient (CLI) | payer MEDICARE, SELFPAY | LOC: SL 20:19 | PROVIDERS: PCP Internal Medicine Adolescent Medicine; Visit Provider Internal Medicine Adolescent Medicine | DX: R51.9 Headache, unspecified (principal); G47.53 Recurrent isolated sleep paralysis; G47.69 Other sleep related movement disorders; Z86.73 Personal history of transient ischemic attack (TIA), and cerebral infarction without residual deficits | CPT/HCPCS: 95810 ==

== ENCOUNTER 2023-11-23 13:35 | Outpatient (CLI) | payer MEDICARE, SELFPAY ==
--- NOTE | 2023-11-23 13:37 | MR_ITS ---
FINAL REPORT CLINICAL HISTORY: HISTORY OF CVA WITH RESIDUAL DEFICIT, MEMORY LOSS COMPARISON: 11/16/2021 FINDINGS: Multiplanar MR imaging of the brain was performed without and with contrast. There is posterior right frontal encephalomalacia, stable from prior exam. There is mild age-appropriate atrophy. Scattered foci of increased T2 signal are seen in the cerebral white matter that have a nonspecific appearance but likely represent moderate chronic ischemic/gliotic changes. There is no evidence of intracranial hemorrhage or mass. No abnormal ventricular dilatation is identified. There is no evidence of shift of the midline structures. No abnormal extra-axial fluid collection is seen. No area of abnormal restricted diffusion is identified. The posterior fossa and brainstem have an unremarkable appearance. No abnormal contrast enhancement is seen. Normal major vessel vascular flow voids are seen. IMPRESSION: Mild atrophy and moderate chronic ischemic/gliotic changes. Stable encephalomalacia No acute intracranial abnormality. Reviewed, Interpreted and Dictated by Aman Feliciano III, MD Transcribed by Nadine Grace Authenticated and [facility]
[2023-11-23] MEDS: GADOTERIDOL INJ 20ML SYRINGE 15 ML IV (14:48)
[2023-11-23] MEDS: SODIUM CHLORIDE 0.9% 10ML SYR (RAD ONLY) 10 ML IV (14:48)
== END 2023-11-23 23:59 | disposition home or self-care (01) ==
LOC: RAD 13:35
PROVIDERS: PCP Internal Medicine Adolescent Medicine; Visit Provider Internal Medicine Adolescent Medicine
DX: I69.30 Unspecified sequelae of cerebral infarction (principal); R41.3 Other amnesia
CPT/HCPCS: 70553; A9576

== ENCOUNTER 2024-03-20 15:04 | Outpatient (CLI) | payer MEDICARE, SELFPAY ==
--- NOTE | 2024-03-20 15:08 | MR_ITS ---
FINAL REPORT TECHNIQUE: Multiplanar and multisequence imaging of the brain was obtained without contrast. CLINICAL HISTORY: AMNESIA TREMOR CONFUSION HX OF STROKE COMPARISON: 11/23/2023 FINDINGS: There is mild age-appropriate atrophy. There is no mass effect or midline shift. The ventricles are symmetric in size and configuration without hydrocephalus. There is stable periventricular and subcortical white matter changes. There is stable encephalomalacia in the right posterior frontal lobe. There are no new areas of abnormal signal intensity. The cerebellum and brainstem have a normal appearance. There are no areas of restricted diffusion on diffusion weighted images to suggest acute infarct. There is no acute soft tissue abnormality. There is mucoperiosteal thickening in the left maxillary sinus which is new compared to the prior exam. IMPRESSION: No acute intracranial abnormality. Stable chronic findings. Left maxillary sinusitis appears chronic but is new from the prior exam. Reviewed, Interpreted and Dictated by Katlyn Brock MD Transcribed by Elida Dominguez Authenticated and . [facility]
== END 2024-03-20 23:59 | disposition home or self-care (01) ==
LOC: RAD 15:05
PROVIDERS: PCP Internal Medicine Adolescent Medicine; Visit Provider Internal Medicine Adolescent Medicine
DX: G81.94 Hemiplegia, unspecified affecting left nondominant side (principal); Z86.73 Personal history of transient ischemic attack (TIA), and cerebral infarction without residual deficits
CPT/HCPCS: 70551

== ENCOUNTER 2024-03-22 12:08 | Emergency (ER) | payer MEDICARE, SELFPAY ==
[2024-03-22 12:10] VITALS: PULSE 95; RESP 19; TEMP 36.5; O2SAT 97; BMI 25.8
--- NOTE | 2024-03-22 12:23 | XR_ITS ---
PROCEDURE INFORMATION: Exam: XR Right Wrist Exam date and time: 03/22/2024 12:30 PM Age: 83 years old Clinical indication: Injury or trauma; Other: Hit on table; Blunt trauma (contusions or hematomas); Wrist; Right TECHNIQUE: Imaging protocol: Radiologic exam of the right wrist. Views: 3 or more views. COMPARISON: CR XR WRIST RT MIN 3V 03/22/2024 12:30 PM FINDINGS: Bones/joints: Acute comminuted fracture in the distal right radius with approximately 1.5 cm impaction and 20 degrees dorsal angulation of the distal fragment relative to the proximal. Acute mildly displaced fracture of the ulnar styloid process. Carpal arcs are well-maintained. Severe degenerative changes in the trapeziometacarpal and triscaphe joints with periarticular osteolysis and joint destruction. Slight radial subluxation of the trapeziometacarpal joint, most likely degenerative. Soft tissues: Soft tissue edema noted. IMPRESSION: 1. Acute comminuted fracture in the distal right radius with approximately 1.5 cm impaction and 20 degrees dorsal angulation of the distal fragment relative to the proximal. 2. Acute mildly displaced fracture of the ulnar styloid process. 3. Severe degenerative changes in the trapeziometacarpal and triscaphe joints with periarticular osteolysis and joint destruction. Findings concerning for inflammatory arthritis. 4. Slight radial subluxation of the trapeziometacarpal joint, most likely degenerative.
--- NOTE | 2024-03-22 12:23 | XR_ITS ---
PROCEDURE INFORMATION: Exam: XR Right Hand Exam date and time: 03/22/2024 12:30 PM Age: 83 years old Clinical indication: Injury or trauma; Other: Hit on table; Blunt trauma (contusions or hematomas); Hand; Right TECHNIQUE: Imaging protocol: Radiologic exam of the right hand. Views: 3 or more views. COMPARISON: CR XR HAND RT MIN 3V 03/22/2024 12:30 PM FINDINGS: Bones/joints: No evidence of acute fracture or malalignment in the right hand. Acute fractures in the distal radius and ulnar styloid process. Moderate degenerative osteoarthrosis in the 1st interphalangeal joint. [id number] degenerative osteoarthrosis in the 1st metacarpophalangeal joint and 2nd distal interphalangeal joint. Mild interphalangeal degenerative osteoarthrosis in the 3rd through 5th digits. Severe degenerative changes in the trapeziometacarpal and triscaphe joints with periarticular osteolysis and joint destruction. Slight radial subluxation of the trapeziometacarpal joint, most likely degenerative. Soft tissues: Soft tissue edema noted. IMPRESSION: 1. No evidence of acute osseous abnormality in the right hand. 2. Acute fractures in the distal radius and ulnar styloid process. 3. 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 4. Severe degenerative changes in the trapeziometacarpal and triscaphe joints with periarticular osteolysis and joint destruction. Findings concerning for inflammatory arthritis. 5. Slight radial subluxation of the trapeziometacarpal joint, most likely degenerative.
--- NOTE | 2024-03-22 12:26 | ED_ITS ---
<Statement entered by Ivelisse Cuevas MD - 03/22/24 16:05> I was consulted by the GISELLA, and we discussed the complexity of the problems being addressed. I approved the treatment and management plan for this patient's care in the emergency department, thus performing a substantive portion of the medical decision making. Ivelisse Cuevas MD, YAIMA, FACEP Discharge Plan Disposition Patient Disposition: Home, Self-Care Condition: Good Chief Complaint: PAIN Prescriptions Prescriptions: New hydrocodone-acetaminophen 5-325 mg tablet 1 tab PO Q6H PRN (Reason: pain) 3 Days Qty: 12 0RF No Action amlodipine 5 mg tablet 5 mg PO DAILY escitalopram oxalate 20 MG tablet 20 mg PO DAILY carvedilol 25 mg tablet 25 mg PO BID quetiapine 400 mg tablet 400 mg PO HS Patient Comments: TAKE ONE TABLET BY MOUTH EVERY DAY AT BEDTIME atorvastatin 40 mg tablet 40 mg PO DAILY Patient Comments: TAKE ONE TABLET BY MOUTH EVERY DAY alprazolam 1 mg tablet 2 mg PO HS Patient Comments: TAKE TWO TABLETS BY MOUTH EVERY DAY AT BEDTIME MAY CAUSE DROWSINESS diphenoxylate-atropine 2.5-0.025 mg tablet 2 tab PO BIDP PRN (Reason: Diarrhea) Patient Comments: TAKE TWO TABLETS BY MOUTH TWICE DAILY NEEDED FOR DIARRHEA MAY CAUSE DROWSINESS clopidogrel 75 mg tablet 75 mg PO DAILY Patient Comments: TAKE ONE TABLET BY MOUTH EVERY DAY famotidine 20 mg tablet 20 mg PO HS Patient Comments: TAKE ONE TABLET BY MOUTH EVERY DAY AT SUPPER buspirone 10 mg tablet 10 mg PO BID Patient Comments: TAKE ONE TABLET BY MOUTH TWICE DAILY oxycodone-acetaminophen 7.5-325 mg tablet 1 tab PO Q6H Patient Comments: TAKE ONE TABLET BY MOUTH EVERY 6 HOURS MAY CAUSE DROWSINESS azithromycin [azithromycin] 250 mg tablet 250 mg PO DIRECTED Qty: 6 0RF Rx Instructions: Take two (2) tablets on day #1, then one (1) tablet day #2 thru #5 cefdinir 300 mg capsule 300 mg PO BID Qty: 14 0RF Referrals Follow up/Referrals: Pablo Santos DO [Staff Physician] - See instructions Hawk Davis MD [Primary Care Provider] - See instructions Activity Restrictions/Add. Instructions Additional Instructions/Restrictions: Please remain nonweightbearing in that right upper extremity and keep your splint on until you are evaluated by Dr. Santos. Please call and make next available appointment early next week and return with any significant worsening of your symptoms. Clinical Impressions Clinical Impression: Distal radius fracture, right Instructions Patient Instructions: DI for Forearm Fracture Print Language Print Language: Fijian Discharge ED Provider: Ivelisse Cuevas General Adult HPI General Chief complaint: PAIN Stated complaint: right hand pain Time Seen by Provider: 03/22/24 12:19 Mode of Arrival: Ambulatory Source of Information: Patient Limitations: No Limitations Description of Symptoms (Recalled from ER Triage Doc. by RN): pt presents to ED with c/o right hand pain. pt reports she hit the table early this morning to get her cat off the table. pt reports that she hit the table and then had pain in her wrist. pt reports no fall. pt does have some confusion, son states that it is baseline intermittent. PMS present History of Present Illness HPI narrative: 83-year-old female presents to the ER for right hand pain. Patient states earlier this a.m. she was getting after her cat and smacked her hand down. Patient states since then she has been having swelling and pain and decreased range of motion. Related Data Home Medications ?Medication ?Instructions ?Recorded ?Confirmed escitalopram oxalate 20 mg tablet 20 mg PO DAILY Mood 07/05/18 01/28/23 amlodipine 5 mg tablet 5 mg PO DAILY High blood pressure 02/02/20 01/28/23 carvedilol 25 mg tablet 25 mg PO BID High Blood Pressure 01/27/23 01/28/23 alprazolam 1 mg tablet 2 mg PO HS Insomnia 01/28/23 01/28/23 atorvastatin 40 mg tablet 40 mg PO DAILY Mood 01/28/23 01/28/23 buspirone 10 mg tablet 10 mg PO BID Anxiety 01/28/23 01/28/23 clopidogrel 75 mg tablet 75 mg PO DAILY Platelet Inhibitor 01/28/23 01/28/23 diphenoxylate-atropine 2.5 2 tab PO BIDP PRN Diarrhea 01/28/23 01/28/23 mg-0.025 mg tablet famotidine 20 mg tablet 20 mg PO HS Acid Reflux 01/28/23 01/28/23 oxycodone-acetaminophen 7.5 mg-325 1 tab PO Q6H Pain 01/28/23 01/28/23 mg tablet quetiapine 400 mg tablet 400 mg PO HS Insomnia 01/28/23 01/28/23 Previous Rx's ?Medication ?Instructions ?Recorded azithromycin 250 mg tablet 250 mg PO DIRECTED #6 tabs 01/29/23 cefdinir 300 mg capsule 300 mg PO BID #14 caps 01/29/23 hydrocodone 5 mg-acetaminophen 325 1 tab PO Q6H PRN pain 3 days #12 03/22/24 mg tablet tabs Allergies Allergy/AdvReac Type Severity Reaction Status Date / Time haloperidol (From HALDOL) Allergy Unknown Verified 03/08/20 13:59 PFSH [facility] Disclaimer: The information contained in this section may have been updated after the patient was seen, as this information can be updated by other users. Medical History , [employer]) Thyroid disease Depression Anxiety History of anemia Migraine History of stroke Hyperlipidemia Hypertension Surgical History , [employer]) History of hysterectomy History of cholecystectomy Family History , [employer]) No significant family history Social History , [employer]) Smoking Status: Never smoker alcohol intake: current alcohol intake frequency: holidays/special occasions only substance use type: denies use current occupational status: retired Travel in the last 8 weeks: None household members: spouse housing: house current occupational exposures/hazards: No caffeine: Yes Have you lived/traveled outside US in past 30 days?: No Contact w/someone who lives/traveled outside US past 30 days?: No Exposure to someone with infectious disease in past 14 days?: No Do you have a fever (greater than 100.4 F or 38 C)?: No Have you tested positive for COVID-19: No Exposed to someone with COVID-19 in past 14 days?: No Do you have a sore throat?: No Do you have a cough?: No Do you have any weakness?: No Do you have any diarrhea?: No Are you experiencing any unusual bleeding?: No Do you have any muscle aches/pain?: No Do you have any abdominal pain?: No Are you experiencing loss of taste or smell?: No Other Medical History Have you received the Flu Vaccine for this season: No Have you received the Pneumonia Vaccine: No ROS Obtained: Yes Systems reviewed as appropriate & no additional complaints except as documented Physical Exam General General appearance: alert and in no apparent distress Eye Eye exam: Present normal appearance ENT ENT exam: Present normal exam Neck Neck exam: Present full ROM Respiratory Respiratory exam: Present normal lung sounds bilaterally Cardiovascular Cardiovascular exam: Present regular rate and normal rhythm Expanded Upper Extremity Exam Right: Forearm/Wrist exam: Present tenderness, swelling and deformity L/R Arms Top View: 2 1. Swelling and deformed Neurological Exam Neurological exam: Present alert and oriented X3 Skin Skin exam: Present warm and intact Medical Decision Making Medical Records Medical records reviewed: Yes I reviewed the patient's medical records. Screening: Per USPSTF and CDC recommendations, given the prevalence of disease in our region, it is our hospital?s policy to screen for HIV and viral Hepatitis for all patients aged 18 and over and those with ongoing risk factors. Adiel Inquiry Pt receiving controlled substance: No Adiel was queried for this patient: No Vital Signs: 03/22/24 12:10 03/22/24 13:54 Temperature 97.7 F Temperature Source Oral Pulse Rate 93 H Pulse Rate [Left Radial] 95 H Respiratory Rate 19 Blood Pressure 143/76 H 02 Sat by Pulse Oximetry 97 97 Oxygen Delivery Method Room Air Room Air Orders (Tests/Meds): ORDERS Category Date Time Status Hand XR right minimum 3 views [XR hand RT min 3V] Stat Exams 03/22/24 12:23 Taken Wrist XR right minimum 3 views [XR wrist RT min 3V] Exams 03/22/24 12:23 Taken Stat Wrist XR right minimum 3 views [XR wrist RT min 3V] Exams 03/22/24 13:22 Taken Stat Radiology Data #1: Image(s): Wrist Image Reviewed: Yes I reviewed the patient's radiology image Preliminary Findings: Abnormal #2: Image(s): Wrist Image Reviewed: Yes I reviewed the patient's radiology image Preliminary Findings: Abnormal Medical Decision Narrative: In summary patient is a 83-year-old female who presents to the emergency department for evaluation of right wrist pain. Patient is, dynamically stable upon arrival, afebrile. Right wrist swelling and deformity noted. Differential diagnosis includes fracture. Initial workup will be conducted with wrist and hand x-ray. Initial inventions include radial head reduction. Initial workup reviewed by me x-rays. Upon repeat evaluation repeat x-rays after reduction appropriate. Given this patient appropriate for discharge will discharge home with follow-up with Ortho. Procedures Orthopedic Fracture Reduction Fracture #1: Time Out Performed: Yes Side: right Fracture Reduction Location: radius Analgesia: hematoma block Technique: direct manipulation, traction/counter-traction and finger traps Post Reduction X-rays Demonstrate: acceptable reduction Post-reduction neuro exam: intact Post-reduction vascular exam: intact Splint Applied: Yes Patient Tolerated Procedure: well and no complications Additional Comments: Mandy patino splint Critical Care Critical Care Time Critical Care Time: No
--- NOTE | 2024-03-22 13:22 | XR_ITS ---
PROCEDURE INFORMATION: Exam: XR Right Wrist Exam date and time: 03/22/2024 1:32 PM Age: 83 years old Clinical indication: Screening exam; S/P reduction TECHNIQUE: Imaging protocol: Radiologic exam of the right wrist. Views: 3 or more views. COMPARISON: CR XR WRIST RT MIN 3V 03/22/2024 12:30 PM FINDINGS: Bones/joints: Acute fractures in the distal radius and ulnar styloid process status post closed reduction and splinting with improved alignment. Soft tissues: Unremarkable. IMPRESSION: Acute fractures in the distal radius and ulnar styloid process status post closed reduction and splinting with improved alignment.
[2024-03-22 13:54] VITALS: BP 143/76; PULSE 93; O2SAT 97
[2024-03-22 14:05] VITALS: BP 143/76; PULSE 93; RESP 18; TEMP 36.5; O2SAT 97
== END 2024-03-22 14:08 | disposition home or self-care (01) ==
PROVIDERS: Emergency Provider Student in an Organized Health Care Education/Training Program; PCP Internal Medicine Adolescent Medicine
DX: S52.501A Unspecified fracture of the lower end of right radius, initial encounter for closed fracture (principal); M79.641 Pain in right hand; M25.531 Pain in right wrist; W22.03XA Walked into furniture, initial encounter; Y93.89 Activity, other specified; Y92.000 Kitchen of unspecified non-institutional (private) residence as the place of occurrence of the external cause
CPT/HCPCS: 25605; 73110; 73130; 99283

== ENCOUNTER 2024-03-26 13:13 | Outpatient (CLI) | payer MEDICARE, SELFPAY ==
[2024-03-26 10:35] VITALS: BMI 25.8
--- NOTE | 2024-03-26 13:32 | ECG_ITS ---
APPROVED REPORT Exam: Resting ECG HR:80 bpm ECG Measurements Heart Rate 80 AXES QRSd 78 QRS 18 QT 375 T 27 QTc 411 Conclusion SUPRAVENTRICULAR RHYTHM ABNORMAL RHYTHM ECG UNCONFIRMED REPORT Electronically signed by : Hawk Davis MD 03/29/2024 08:32:10
[2024-03-26 14:09] LABS: Basophils % 0.3 % (0.1-2.0); Eosinophils % 0.7 % (0.1-12.0); Hematocrit 37.1 % (37.0-47.0); Hemoglobin 12.5 g/dL (12.2-16.2); Lymphocytes # 2.3 K/mm3 (0.7-4.5); Mean Corpuscular HGB Conc 33.7 g/dL (31.8-35.4); Mean Corpuscular Hemoglobin 33.1 pg (27.0-31.2); Mean Corpuscular Volume 98.1 fl (81-99); Mean Platelet Volume 10.9 fl (7.4-10.4); Monocytes # 0.6 K/mm3 (0.1-1.0); Monocytes % 10.3 % (1.7-9.3); Neutrophils % 50.4 % (37.0-80.0); Platelet Count 218 K/mm3 (142-424); Red Blood Count 3.78 M/mm3 (4.20-5.40); Red Cell Distribution Width 11.9 % (11.5-17.5)
[2024-03-26 14:14] LABS: Chloride 104 mmol/L (98-107); Sodium 140 mmol/L (136-145)
[2024-03-26 14:15] LABS: Potassium 3.8 mmoL/L (3.5-5.1)
[2024-03-26 14:17] LABS: Blood Urea Nitrogen 19 mg/dl (7-17); Creatinine Clearance Estimated 52 mL/min (50-200); Estimated Glomerular Filt Rate 118 ml/min (>60); GFR (African American) 143 ML/MIN (>60)
[2024-03-26 14:18] LABS: Anion Gap 13.8 mEq/L (5-15); Calcium 9.5 mg/dl (8.4-10.2); Carbon Dioxide 26 mmol/L (22.0-30.0); Glucose 116 mg/dl (74-100)
== END 2024-03-26 23:59 | disposition home or self-care (01) ==
LOC: PREOP 13:15
PROVIDERS: PCP Internal Medicine Adolescent Medicine; Visit Provider Orthopaedic Surgery
DX: Z01.810 Encounter for preprocedural cardiovascular examination (principal); S52.501A Unspecified fracture of the lower end of right radius, initial encounter for closed fracture; I49.9 Cardiac arrhythmia, unspecified; R94.31 Abnormal electrocardiogram [ECG] [EKG]
CPT/HCPCS: 80048; 85025; 93005

== ENCOUNTER 2024-04-02 08:49 | Day surgery (SDC) | payer MEDICARE, SELFPAY ==
[2024-03-26 09:47] VITALS: BMI 25.8
[2024-04-02] VITALS (11 sets, daily range): BP systolic 122–155; BP diastolic 64–93; PULSE 80–87; RESP 16–18; TEMP 36.4–38; O2SAT 94–97
[2024-04-02] MEDS: LACTATED RINGERS 1000ML 1,000 ML 100 ML IV (09:05)
--- NOTE | 2024-04-02 09:07 | ECG_ITS ---
APPROVED REPORT Exam: Resting ECG HR:80 bpm ECG Measurements Heart Rate 80 AXES IN 166 P 51 QRSd 90 QRS 17 QT 371 T 43 QTc 407 Conclusion SINUS RHYTHM NORMAL ECG UNCONFIRMED REPORT Electronically signed by : Hawk Davis MD 04/04/2024 09:19:33
--- NOTE | 2024-04-02 09:43 | EXP.ANES.CKL ---
[facility] Disclaimer: The information contained in this section may have been updated after the patient was seen, as this information can be updated by other users. Medical History Deviated septum Hiatal hernia Thyroid disease Depression Anxiety History of anemia Migraine History of stroke Hyperlipidemia Hypertension Surgical History History of hysterectomy History of cholecystectomy Family History Other No significant family history Social History (Updated 03/26/24 @ 13:21 by Nury Zamora RN) Smoking Status: Never smoker alcohol intake: never substance use type: denies use current occupational status: retired Travel in the last 8 weeks: None household members: spouse housing: house current occupational exposures/hazards: No caffeine: Yes Have you lived/traveled outside US in past 30 days?: No Contact w/someone who lives/traveled outside US past 30 days?: No Exposure to someone with infectious disease in past 14 days?: No Do you have a fever (greater than 100.4 F or 38 C)?: No Have you tested positive for COVID-19: No Exposed to someone with COVID-19 in past 14 days?: No Do you have a sore throat?: No Do you have a cough?: No Do you have any weakness?: No Do you have any diarrhea?: No Are you experiencing any unusual bleeding?: No Do you have any muscle aches/pain?: No Do you have any abdominal pain?: No Are you experiencing loss of taste or smell?: No [facility] Anesthesia Checklist Patient Identification Patient Identification: Arm Band Structural Data Admitted From: Home Planned Operative Procedure/s: ORIF Right Wrist Consent for Planned Operative Procedure(s) Verified: Yes Verified Documents: Surgical Consent and History and Physical NPO Status Verified Time NPO: 00:00 Additional verifications Anesthesia Reactions: No Hx Blood Transfusions: Yes Blood Transfusion Reaction: No Airway Assessment Mallampati Score:: Class II C-Spine Mobility Assessed: Yes TMJ Mobility Assessed: Yes Dentition: Good Dentition Neurological Assessment Level of Consciousness: Awake, Alert and Appropriate Anesthesia Plan Anesthesia Risk discussed: Yes Anesthesia Plan: Verified ASA Class: III Anesthesia Type: General w/block (Right Supraclavicular Nerve Block. Risks/benefits explained. Pt verbalized understanding)
[2024-04-02] MEDS: CEFAZOLIN SODIUM 2 GM in 0.9 % SODIUM CHLORIDE 100 ML IV (11:07)
--- NOTE | 2024-04-02 12:53 | EXP.ANES.I ---
[facility] Anesthesia Record Part I Anesthesia Record I Intake, IV Amount: 1,100 Hydration: Adequate Estimated blood loss (mL): 10 Urine output (mL): 0 Blood Products used (#): none Blood Pressure: 140/81 SaO2: 95 Pulse Rate: 85 Airway Patency: Patent Respiratory Rate: 18 Temperature: 97.8 F Patient is:: Drowsy and Stable Stable to PACU at:: 12:49
[2024-04-02] MEDS: MORPHINE 2MG/ML SYRINGE 1 MG IV ×2 (13:10→13:21)
--- NOTE | 2024-04-02 13:19 | XR_ITS ---
FINAL REPORT CLINICAL HISTORY: ORIF RIGHT WRIST 1.82 MGY 1.03 FT FINDINGS: FLUOROSCOPY LESS THAN 1 HOUR HISTORY: Fluoroscopy guidance. Fluoroscopic guidance was provided for ORIF right wrist. 2 spot films were obtained. A total of 1.03 minutes of fluoroscopy time were used. Total DAP: 1.82 mGy IMPRESSION: As above. Reviewed, Interpreted and Dictated by Ruy Weiss MD Transcribed by Mirtha Nicole Authenticated and [facility] [place] [place]
--- NOTE | 2024-04-02 14:36 | P.PNANES_ITS ---
[facility] Anesthesia Record Part II Anesthesia Record Part II Discharge Time: 13:19 Destination: Surgical Day Care (OP Surgery) PACU nurse assessment reviewed?: Yes Patient Condition:: Good Anesthesia Complications:: None Swallowing reflex intact?: Yes Airway Patency: Patent Cyanosis?: No Blood Pressure: 139/64 SaO2: 96 Respiratory Rate: 16 Pulse Rate: 87 Temperature: 97.6 F Mental Status: Alert & Oriented Pain level:: 4 Nausea and/or vomitting:: None Intake, IV Amount: 0 Hydration: Adequate
--- NOTE | 2024-04-09 09:49 | EXP.OP.NOTE ---
Date of procedure: 04/09/24 Pre-op Diagnosis:: Right distal radius fracture Post-op Diagnosis:: Right distal radius intra-articular fracture Procedure performed:: Open reduction internal fixation right distal radius fracture intra-articular 3+ part Surgeon:: Pablo Santos DO Package Crimper(s):: Artur JAIME Anesthesia: GETA and regional Estimated blood loss (mL): 0 Clinical Note:: Synthes volar plating system Operative findings:: Intra-articular distal radius fracture 3+ part Operative note:: Patient was identified preoperatively. Right wrist marked with yes my initials. Transferred operative suite after undergoing a block with anesthesia. Patient placed upon the bed with a radiolucent hand table. Right upper extremity was prepped and draped normal sterile fashion. Once prepped and draped final operative timeout performed to identify proper patient procedure and extremity. Everyone involved in the case agreed. There is no counter indications beginning. She did receive preoperative antibiotics. Marking pen was used to pj plan incision over the FCR tendon on the volar aspect of the wrist. Esmarch was used to exsanguinate the extremity and pneumatic tourniquet inflated to 250 mmHg. Skin knife is used to incise through skin dissection is taken down the FCR tendon the FCR tendon sheath was opened and the FCR tendon was retracted radially throughout the procedure to protect the radial artery. The floor of the FCR was opened retractors placed dissection is taken down pronator quadratus which was released off the distal radius in L-type fashion. This identified the fracture site. Fracture site hematoma evacuated. There was comminution intra-articular fracture with DRUJ and radiocarpal joint. Traction was placed as well as reduction maneuver to restore alignment of the distal radius. There was comminution on the volar surface of the distal radius. Once initial reduction traction performed temporary fixation with K wire across the radial styloid performed. Plate was selected from the Synthes volar distal radius set. Placed on the fracture. Cortical screw placed in the shaft followed by distal locking screws distally. AP and lateral views were shown for proper screw length and placement. Additional locking screw placed in the shaft. Irrigation of the wound performed deep layers closed with Vicryl stitch subcutaneous with Vicryl stitch and 3-0 nylon for skin closure sterile dressing placed with a volar splint and hand dressing. Patient waken anesthesia taken recovery in stable condition. Condition: stable Disposition: PACU Complications:: None apparent
== END 2024-04-02 13:55 | disposition home or self-care (01) ==
PROVIDERS: PCP Internal Medicine Adolescent Medicine; Visit Provider Orthopaedic Surgery
PROC: (CPT 25609; principal; 2024-04-02 10:15)
DX: S52.571A Other intraarticular fracture of lower end of right radius, initial encounter for closed fracture (principal)
CPT/HCPCS: 25609; 73100; 76000; 93005; 96374; C1713; C1776; J0690; J1100; J2250; J2270; J2405; J3010; J7120

== ENCOUNTER 2024-04-17 09:17 | Outpatient (CLI) | payer MEDICARE, SELFPAY ==
--- NOTE | 2024-04-17 09:22 | XR_ITS ---
FINAL REPORT CLINICAL HISTORY: Rt Wrist pain COMPARISON: 03/22/2024 FINDINGS: RIGHT WRIST Three views demonstrate interval internal fixation with a sideplate and screw securing the distal radial metaphysis. A component of the distal radial fragment is mildly dorsally displaced as seen on the lateral view. There is a displaced fracture of the ulnar styloid. Moderate hypertrophic changes are seen to the basilar joint. The soft tissues are unremarkable. IMPRESSION: Interval internal fixation as described. Ununited ulnar fragment. Reviewed, Interpreted and Dictated by Hilton Santoro MD Transcribed by Mirtha Nicole Authenticated and . [facility]
== END 2024-04-17 23:59 | disposition home or self-care (01) ==
LOC: RAD 09:20
PROVIDERS: PCP Internal Medicine Adolescent Medicine; Visit Provider Orthopaedic Surgery
DX: M25.531 Pain in right wrist (principal); S52.551A Other extraarticular fracture of lower end of right radius, initial encounter for closed fracture
CPT/HCPCS: 73110

== ENCOUNTER 2024-05-08 10:27 | Outpatient (CLI) | payer MEDICARE, SELFPAY ==
--- NOTE | 2024-05-08 10:31 | XR_ITS ---
FINAL REPORT CLINICAL HISTORY: rt wrist pain COMPARISON: 04/17/2024 FINDINGS: AP, oblique, and lateral views of the right wrist were obtained. The previously noted cast has been removed. There is hardware present in the distal radius, and the hardware is intact. The hardware bridges a fracture of the distal radius, and there has been no significant increase in callus formation since the prior exam. The fracture lines remain unchanged. A distal ulnar fracture is stable in appearance when compared to the prior exam. Multijoint degenerative change is present. The soft tissues are normal. IMPRESSION: Prior ORIF of a fracture of the distal radius, with no significant increased callus formation since the prior exam of 04/17/2024. Reviewed, Interpreted and Dictated by Katlyn Brock MD Transcribed by Shanta Elena Authenticated and [facility]
== END 2024-05-08 23:59 | disposition home or self-care (01) ==
LOC: RAD 10:29
PROVIDERS: PCP Internal Medicine Adolescent Medicine; Visit Provider Orthopaedic Surgery
DX: M25.531 Pain in right wrist (principal); S52.551A Other extraarticular fracture of lower end of right radius, initial encounter for closed fracture
CPT/HCPCS: 73110

== ENCOUNTER 2024-05-29 09:18 | Outpatient (CLI) | payer MEDICARE, SELFPAY ==
--- NOTE | 2024-05-29 09:22 | XR_ITS ---
FINAL REPORT TECHNIQUE: Bone densitometry calculations of the lumbar spine and left hip were obtained. CLINICAL HISTORY: CLOSED FRACTURE OF WRIST ......SCREENING FINDINGS: Using L1-4, the bone mineral density of the spine is 0.975 g/cm2, corresponding to T-score of -0.7 but this may be falsely elevated secondary to degenerative changes. Using the left hip, the bone mineral density of the femoral neck is 0.609 g/cm2, corresponding to a T-score of -2.7. Using the right hip, the bone mineral density of the femoral neck is 0.565 g/cm2, corresponding to a T-score of -2.6. NOTE: T-score: Standard deviation compared with peak bone mass of young adult mean. *Following the recommendations of the International Society of Bone densitometry, classification of hip BMD is based on the lower of two T-scores; total hip or femoral neck. IMPRESSION: Diminished bone mineral density of the lumbar spine and hips consistent with osteopenia. FRAX was not reported because some of the T-scores are at or below -2.5. Reviewed, Interpreted and Dictated by Hilton Santoro MD Transcribed by Rakel Whitney Authenticated and . [facility]
== END 2024-05-29 23:59 | disposition home or self-care (01) ==
LOC: RAD 09:20
PROVIDERS: PCP Internal Medicine Adolescent Medicine; Visit Provider Internal Medicine Adolescent Medicine
DX: Z78.0 Asymptomatic menopausal state (principal); S62.101S Fracture of unspecified carpal bone, right wrist, sequela
CPT/HCPCS: 77080

== ENCOUNTER 2024-06-05 09:54 | Outpatient (CLI) | payer MEDICARE, SELFPAY ==
--- NOTE | 2024-06-05 09:58 | XR_ITS ---
FINAL REPORT CLINICAL HISTORY: right wrist ORIF COMPARISON: 05/08/2024 FINDINGS: RIGHT WRIST THREE VIEW FINDINGS: Three views show post ORIF changes of the distal radius. There is a healing transverse fracture of the radial metaphysis again noted without significant interval change. Some of the fracture line remains evident. 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 Significant degenerative changes noted of the lateral carpus. IMPRESSION: No significant change. Reviewed, Interpreted and Dictated by Ruy Weiss MD Transcribed by Mirtha Nicole Authenticated and [facility]
== END 2024-06-05 23:59 | disposition home or self-care (01) ==
LOC: RAD 09:55
PROVIDERS: PCP Internal Medicine Adolescent Medicine; Visit Provider Physician Assistant Surgical
DX: M25.531 Pain in right wrist (principal); S52.551A Other extraarticular fracture of lower end of right radius, initial encounter for closed fracture
CPT/HCPCS: 73110

== ENCOUNTER 2024-07-08 09:43 | Outpatient (CLI) | payer MEDICARE, SELFPAY ==
--- NOTE | 2024-07-08 09:51 | XR_ITS ---
FINAL REPORT CLINICAL HISTORY: Rt wrist pain COMPARISON: 06/05/2024 FINDINGS: RIGHT WRIST Three views demonstrate a sideplate and screws bridging a healing fracture of the distal radial metaphysis. There is increased callus formation since the prior exam. There is a well-corticated 8 mm ossific density adjacent to the expected location of the ulnar styloid process, likely posttraumatic. There are advanced hypertrophic changes particularly involving the first CMC joint. The soft tissues are unremarkable. IMPRESSION: There has been interval progressive healing of the distal radial fracture since the prior exam. Reviewed, Interpreted and Dictated by Hilton Santoro MD Transcribed by Shanta Elena Authenticated and [facility]
== END 2024-07-08 23:59 | disposition home or self-care (01) ==
LOC: RAD 09:44
PROVIDERS: PCP Internal Medicine Adolescent Medicine; Visit Provider Physician Assistant
DX: M25.531 Pain in right wrist (principal); S52.551A Other extraarticular fracture of lower end of right radius, initial encounter for closed fracture
CPT/HCPCS: 73110

== ENCOUNTER 2025-01-23 21:58 | Emergency (ER) | payer MEDICARE, SELFPAY ==
--- NOTE | 2025-01-23 21:59 | CT_ITS ---
PROCEDURE INFORMATION: Exam: CTA Neck With Contrast Exam date and time: 01/23/2025 10:00 PM Age: 84 years old Clinical indication: Stroke-like symptoms; Altered mental status/memory loss; Additional info: Possible stroke TECHNIQUE: Imaging protocol: Computed tomographic angiography of the neck with contrast. Exam focused on the cervical segments of the vasculature. 3D rendering (Not supervised by radiologist): MIP and/or 3D reconstructed images were created by the technologist. Radiation optimization: All CT scans at this facility use at least one of these dose optimization techniques: automated exposure control; mA and/or kV adjustment per patient size (includes targeted exams where dose is matched to clinical indication); or iterative reconstruction. Contrast material: ISOVUE; Contrast volume: 80 ml; Contrast route: INTRAVENOUS (IV); COMPARISON: CT CERVICAL SPINE WO CON 01/27/2023 6:54 PM FINDINGS: Right common carotid artery: No stenosis. No dissection or occlusion. Right internal carotid artery: No stenosis of the extracranial segment. No dissection or occlusion. Right external carotid artery: No occlusion or stenosis of the origin. Left common carotid artery: No stenosis. No dissection or occlusion. Left internal carotid artery: No stenosis of the extracranial segment. No dissection or occlusion. Left external carotid artery: No occlusion or stenosis of the origin. Right vertebral artery: No stenosis. No dissection or occlusion. Left vertebral artery: No stenosis. No dissection or occlusion. Soft tissues: Normal. No significant soft tissue swelling. Bones/joints: No acute fracture. IMPRESSION: No stenosis or occlusion. REFERENCES: NASCET CRITERIA. The degree of stenosis in the cervical segment of the internal carotid artery is based on NASCET criteria. Normal is no stenosis. Mild is less than 50% stenosis. Moderate is 50-69% stenosis. Severe is 70% to 99% stenosis. Total occlusion is no detectable patent lumen.
--- NOTE | 2025-01-23 21:59 | CT_ITS ---
PROCEDURE INFORMATION: Exam: CT Head Without Contrast Exam date and time: 01/23/2025 9:59 PM Age: 84 years old Clinical indication: Stroke-like symptoms; Altered mental status/memory loss; Additional info: Possible stroke TECHNIQUE: Imaging protocol: Computed tomography of the head without contrast. Radiation optimization: All CT scans at this facility use at least one of these dose optimization techniques: automated exposure control; mA and/or kV adjustment per patient size (includes targeted exams where dose is matched to clinical indication); or iterative reconstruction. Other technique: STROKE PROTOCOL was implemented. COMPARISON: MR HEAD/BRAIN WO CON 03/20/2024 3:16 PM FINDINGS: Brain: Periventricular and subcortical small vessel ischemic changes appear chronic. Severe atrophy associated. No acute hemorrhage, mass effect, midline shift, or extra-axial fluid collection. Cerebral ventricles: No ventriculomegaly. Paranasal sinuses: Visualized sinuses are unremarkable. No fluid levels. Mastoid air cells: Visualized mastoid air cells are well aerated. Bones: Unremarkable. No acute fracture. Soft tissues: Unremarkable. IMPRESSION: Severe atrophy. No acute findings. ASSESSMENT: ASPECTS ([place] Stroke Program Early CT Score) is 10.
--- NOTE | 2025-01-23 21:59 | CT_ITS ---
PROCEDURE INFORMATION: Exam: CTA Head With Contrast, Arteriography Exam date and time: 01/23/2025 10:00 PM Age: 84 years old Clinical indication: Stroke-like symptoms; Altered mental status/memory loss; Additional info: Possible stroke TECHNIQUE: Imaging protocol: Computed tomographic angiography of the head with contrast. Exam focused on the arteries. 3D rendering (Not supervised by radiologist): MIP and/or 3D reconstructed images were created by the technologist. Radiation optimization: All CT scans at this facility use at least one of these dose optimization techniques: automated exposure control; mA and/or kV adjustment per patient size (includes targeted exams where dose is matched to clinical indication); or iterative reconstruction. Contrast material: ISOVUE; Contrast volume: 80 ml; Contrast route: INTRAVENOUS (IV); COMPARISON: CT HEAD/BRAIN WO CON 01/23/2025 9:59 PM FINDINGS: ANTERIOR CIRCULATION: Right internal carotid artery: Intracranial segment is patent with no significant stenosis. No aneurysm. Right middle cerebral artery: No occlusion or significant stenosis. No aneurysm. Right anterior cerebral artery: No occlusion or significant stenosis. No aneurysm. Left internal carotid artery: Intracranial segment is patent with no significant stenosis. No aneurysm. Left middle cerebral artery: No occlusion or significant stenosis. No aneurysm. Left anterior cerebral artery: No occlusion or significant stenosis. No aneurysm. POSTERIOR CIRCULATION: Right vertebral artery: No occlusion or significant stenosis. No aneurysm. Left vertebral artery: No occlusion or significant stenosis. No aneurysm. Basilar artery: No occlusion or significant stenosis. No aneurysm. Right posterior cerebral artery: No occlusion or significant stenosis. No aneurysm. Left posterior cerebral artery: No occlusion or significant stenosis. No aneurysm. Brain: No definite mass, mass effect, or midline shift. Cerebral ventricles: No ventriculomegaly. Bones/joints: Unremarkable. No acute fracture. Soft tissues: Unremarkable. IMPRESSION: No large vessel stenosis or occlusion.
[2025-01-23 22:05] LABS: Hematocrit 38.4 % (37.0-47.0); Hemoglobin 13.0 g/dL (12.2-16.2); Immature Granulocytes % 0.2 %; Mean Corpuscular HGB Conc 33.9 g/dL (31.8-35.4); Mean Corpuscular Hemoglobin 33.8 pg (27.0-31.2); Mean Corpuscular Volume 99.7 fl (81-99); Nucleated Red Blood Cells % 0 %; Platelet Count 159 K/mm3 (142-424); Red Blood Count 3.85 M/mm3 (4.20-5.40); Red Cell Distribution Width-SD 43.6 fL; White Blood Count 6.5 K/mm3 (4.8-10.8)
[2025-01-23] MEDS: SODIUM CHLORIDE 0.9% 10ML SYR (RAD ONLY) 10 ML IV (22:08)
[2025-01-23] MEDS: IOPAMIDOL-370 (76%);100ML BOTTLE 80 ML IV (22:08)
[2025-01-23] MEDS: 0.9 % SODIUM CHLORIDE 50 ML VIAL IV (22:08)
--- NOTE | 2025-01-23 22:14 | PC.NURSE ---
Ct's scans sent [facility], career services coordinator called, Dr. Lr on phone with coordinator at this time
[2025-01-23 22:15] LABS: Alanine Aminotransferase 24 U/L (12-78); Albumin Level 4.2 g/dl (3.5-5.0); Albumin/Globulin Ratio 1.4 (1.1-1.8); Alkaline Phosphatase 102 U/L (38-126); Anion Gap 11.3 mEq/L (5-15); Aspartate Amino Transferase 29 U/L (14-36); Bilirubin,Total 0.4 mg/dl (0.2-1.3); Blood Urea Nitrogen 15 mg/dl (7-17); Calcium 8.9 mg/dl (8.4-10.2); Carbon Dioxide 25 mmol/L (22.0-30.0); Chloride 105 mmol/L (98-107); Cholesterol 111 mg/dl (140-200); Creatinine,Serum 0.70 mg/dl (0.52-1.04); Estimated Glomerular Filt Rate 80 ml/min (>60); GFR (African American) 97 ML/MIN (>60); Globulin 3.1 g/dL (1.3-3.2); Glucose 94 mg/dl (74-100); HDL Cholesterol 50 mg/dl (40-60); Potassium 4.3 mmoL/L (3.5-5.1); Sodium 137 mmol/L (136-145); Total Protein,Serum 7.3 g/dl (6.3-8.2); Triglycerides 88 mg/dl (30-150)
[2025-01-23 22:18] VITALS: BP 121/67; PULSE 80; RESP 20; TEMP 36.6; O2SAT 93; BMI 26.6
[2025-01-23 22:19] LABS: Activated Partial Thrombo Time 25.2 seconds (22.8-30.6); INR 1.00 (0.9-1.1); Prothrombin Time 11.1 seconds (10.1-12.5)
--- NOTE | 2025-01-23 22:26 | ECG_ITS ---
APPROVED REPORT Exam: Resting ECG HR:80 bpm ECG Measurements Heart Rate 80 AXES ID 219 P 78 QRSd 91 QRS 5 QT 432 T 50 QTc 468 Conclusion SINUS RHYTHM WITH FIRST DEGREE AV BLOCK ABNORMAL ECG UNCONFIRMED REPORT Electronically signed by : MARIA ESTHER DREW, 01/25/2025 02:18:41
[2025-01-23 22:30] VITALS: BP 108/65; PULSE 84; O2SAT 96
[2025-01-23 22:36] LABS: Troponin I < 0.01 ng/ml (0.00-0.034)
--- NOTE | 2025-01-23 22:38 | XR_ITS ---
PROCEDURE INFORMATION: Exam: XR Chest Exam date and time: 01/23/2025 10:41 PM Age: 84 years old Clinical indication: Other: AMS, possible stroke TECHNIQUE: Imaging protocol: Radiologic exam of the chest. Views: 1 view. COMPARISON: CT ANGIO CHEST PE PROTOCOL 01/27/2023 6:58 PM FINDINGS: Lungs: Unremarkable. No consolidation. Pleural spaces: Unremarkable. No pleural effusion. No pneumothorax. Heart/Mediastinum: Unremarkable. No cardiomegaly. Bones/joints: Unremarkable. IMPRESSION: No acute findings.
--- NOTE | 2025-01-23 22:39 | ED_ITS ---
Discharge Plan Disposition Patient Disposition: Xfer Other Condition: Fair Prescriptions Prescriptions: No Action amlodipine [Norvasc] 5 mg tablet 5 mg PO DAILY diclofenac sodium 1 % gel 2 g topical QID PRN (Reason: pain) Qty: 100 2RF Rx Instructions: apply to wrist or hand PRN pain; for hand includes palm/fingers/back of hand escitalopram oxalate [Lexapro] 20 MG tablet 20 mg PO DAILY carvedilol 25 mg tablet 25 mg PO BID quetiapine [Seroquel] 400 mg tablet 400 mg PO HS Patient Comments: TAKE ONE TABLET BY MOUTH EVERY DAY AT BEDTIME atorvastatin [Lipitor] 40 mg tablet 40 mg PO DAILY Patient Comments: TAKE ONE TABLET BY MOUTH EVERY DAY alprazolam [Xanax] 1 mg tablet 2 mg PO HS Patient Comments: TAKE TWO TABLETS BY MOUTH EVERY DAY AT BEDTIME MAY CAUSE DROWSINESS clopidogrel [Plavix] 75 mg tablet 75 mg PO DAILY Patient Comments: TAKE ONE TABLET BY MOUTH EVERY DAY famotidine [Pepcid] 20 mg tablet 20 mg PO HS Patient Comments: TAKE ONE TABLET BY MOUTH EVERY DAY AT SUPPER buspirone 10 mg tablet 10 mg PO BID Patient Comments: TAKE ONE TABLET BY MOUTH TWICE DAILY oxycodone-acetaminophen [Percocet] 7.5-325 mg tablet 1 tab PO Q6H Patient Comments: TAKE ONE TABLET BY MOUTH EVERY 6 HOURS MAY CAUSE DROWSINESS Referrals Follow up/Referrals: Hawk Davis MD [Primary Care Provider, Internal Medicine] - See instructions Clinical Impressions Clinical Impression: CVA (cerebral vascular accident) Stand Alone Forms Stand Alone Forms: Transfer Record - ED Print Language Print Language: Japanese Discharge ED Provider: Lani Lr General Adult HPI <Lani Lr DO - Last Filed: 01/24/25 01:03> General Chief complaint: Neuro Symptoms/Deficit Stated complaint: Stroke Time Seen by Provider: 01/23/25 22:00 Mode of Arrival: EMS Source of Information: Patient and EMS Description of Symptoms (Recalled from ER Triage Doc. by RN): Pt in by [facility] for stroke alert. Per EMS the son called after speaking with his mom at approx 2030 and stated her speech was slur. Upon arrival to ER pt is A/O x 4, GCS 15 with inital NIH of 2. Pt denies any pain at this time. History of Present Illness HPI narrative: Patient is an 84-year-old female with a history of a previous stroke who presents to the emergency department as a stroke alert from scene. Per EMS, patient spoke to her son on the phone at 8:30 PM and had normal speech and when he arrived at her home around 9 PM her speech seemed altered. EMS arrived at the house around 9:20 PM. Patient had a normal blood sugar. Patient did have some slurred speech but her neurologic exam was otherwise unremarkable. Patient is not complaining of any symptoms including headache vision changes abdominal pain nausea vomiting or diarrhea. Patient states that she is not having any weakness in her lower extremities. Patient states that she has a baseline droop on the left side from a previous stroke. On further discussion, patient is on Plavix from a previous stroke which patient took her medications today. Family states that they did speak to her on the phone at 830 and she was normal and when they arrived her speech seems abnormal. They also spoke to her this morning. They state that she planed of a fever this morning had 1 episode of vomiting and 1 episode of diarrhea today. Patient lives at home alone and they state that patient is able to be functional independently. Patient has had some intermittent confusion. They state the patient does have a left-sided facial droop at baseline which is from a previous stroke. Patient has not had any falls. Related Data Home Medications ?Medication ?Instructions ?Recorded ?Confirmed escitalopram oxalate 20 mg tablet 20 mg PO DAILY Mood 07/05/18 07/08/24 (Lexapro) amlodipine 5 mg tablet (Norvasc) 5 mg PO DAILY High bl ood pressure 02/02/20 07/08/24 carvedilol 25 mg tablet 25 mg PO BID High Blood Pres sure 01/27/23 07/08/24 alprazolam 1 mg tablet (Xanax) 2 mg PO HS Insomnia 03/1007/08/24 atorvastatin 40 mg tablet (Lipitor) 40 mg PO DAILY Moo d 01/28/23 07/08/24 buspirone 10 mg tablet 10 mg PO BID Anxiety 3 07/08/24 clopidogrel 75 mg tablet (Plavix) 75 mg PO DAILY Plate let Inhibitor 01/28/23 07/08/24 famotidine 20 mg tablet (Pepcid) 20 mg PO HS Acid Refl ux 01/28/23 07/08/24 oxycodone-acetaminophen 7.5 mg-325 1 tab PO Q6H Pain 1 03/30/22 07/08/24 mg tablet (Percocet) quetiapine 400 mg tablet (Seroquel) 400 mg PO HS Insom hyacinth 01/28/23 07/08/24 Previous Rx's ?Medication ?Instructions ?Recorded diclofenac sodium 1 % topical gel 2 g topical QID PRN pain #100 grams 05/08/24 Allergies Allergy/AdvReac Type Severity Reaction Status Date / Time haloperidol (From HALDOL) Allergy Unknown Other Verified 07/08/24 10:24 PFS <Lani Lr, DO - Last Filed: 01/24/25 01:03> PFS Disclaimer: The information contained in this section may have been updated after the patient was seen, as this information can be updated by other users. Medical History Left elbow fracture Fracture of right ankle Deviated septum Hiatal hernia Thyroid disease Depression Anxiety History of anemia Migraine History of stroke Hyperlipidemia Hypertension Surgical History History of hysterectomy History of cholecystectomy Family History Other No significant family history Social History Smoking Status: Never smoker alcohol intake: never substance use type: denies use current occupational status: retired Travel in the last 8 weeks?: None household members: spouse housing: house current occupational exposures/hazards: No caffeine: Yes Have you lived/traveled outside [place] in past 30 days?: No Contact w/someone who lives/traveled outside US past 30 days?: No Exposure to someone with infectious disease in past 14 days?: No Do you have a fever (greater than 100.4 F or 38 C)?: No Have you tested positive for COVID-19?: No Exposed to someone with COVID-19 in past 14 days?: No Do you have a sore throat?: No Do you have a cough?: No Do you have any weakness?: No Do you have any diarrhea?: No Are you experiencing any unusual bleeding?: No Do you have any muscle aches/pain?: No Do you have any abdominal pain?: No Are you experiencing loss of taste or smell?: No Other Medical History Have you received the Flu Vaccine for this season: No Have you received the Pneumonia Vaccine: Yes <Lani Lr, - Last Filed: 01/24/25 01:03> ROS Obtained: Yes All systems reviewed & no additional complaints except as documented and Yes Systems reviewed as appropriate & no additional complaints except as documented Physical Exam <Lani Lr DO - Last Filed: 01/24/25 01:03> General General appearance: alert and in no apparent distress Head Head exam: atraumatic, normocephalic and normal inspection Eye Eye exam: Present normal appearance, PERRL and EOMI; Absent scleral icterus ENT ENT exam: Present normal exam and normal external ear exam Neck Neck exam: Present normal inspection and full ROM Chest Chest inspection: Present normal inspection and symmetric chest wall rise Respiratory Respiratory exam: Present normal lung sounds bilaterally; Absent respiratory distress or wheezes Cardiovascular Cardiovascular exam: Present regular rate, normal rhythm and normal heart sounds Abdominal Exam Abdominal exam: Present soft and distention; Absent tenderness, guarding or rebound Extremities Exam Extremities exam: Present normal inspection and full ROM Back Exam Back exam: Present normal inspection and full ROM Neurological Exam Neurological exam: Present alert, oriented X3 and other (5/5 strength in BUE and BLE, sensation intact x 4, L facial droop (at baseline), slurred speech but able to understand, NIH 2) Psychiatric Psychiatric exam: Present normal affect and normal mood Skin Skin exam: Present warm and dry Medical Decision Making <Lani Lr DO - Last Filed: 01/24/25 01:03> Medical Records Medical records reviewed: Yes I reviewed the patient's medical records. Screening: Per USPSTF and CDC recommendations, given the prevalence of disease in our region, it is our hospital?s policy to screen for HIV and viral Hepatitis for all patients aged 18 and over and those with ongoing risk factors. Adiel Inquiry Pt receiving controlled substance: No Vital Signs: 01/23/25 22:18 01/23/25 22:30 01/24/25 02:02 Temperature 97.9 F 98.4 F Temperature Source Oral Oral Pulse Rate 84 72 Pulse Rate [Left] 80 Respiratory Rate 20 16 Blood Pressure 108/65 L 140/82 Blood Pressure [Right Arm] 121/67 Blood Pressure Mean 80 Blood Pressure Mean [Right Arm] 85 Blood Pressure Source Automatic Cuff Blood Pressure Source [Right Arm] Automatic Cuff Blood Pressure Position Supine Blood Pressure Position [Right Arm] Sitting 02 Sat by Pulse Oximetry 93 L 96 Oxygen Delivery Method Room Air Room Air Lab Data Lab results reviewed: Yes I reviewed the patient's lab results. Lab Results 01/23/25 22:55: Urine Color Yellow, Urine Appearance Clear, Urine pH 7.0, Ur Specific [place] 1.015, Urine Protein Negative, Urine Glucose (UA) Negative, Urine Ketones Negative, Urine Blood 2+ A, Urine Nitrate Negative, Urine Bilirubin Negative, Urine Urobilinogen 0.2, Ur Leukocyte Esterase 3+ A, Urine RBC 10-20, Urine WBC 10-20, Ur Squamous Epith Cells 3-5, Urine Bacteria 1+, Urine Opiates Screen Negative, Urine Methadone Screen Negative, Ur Barbituates Screen Negative, Ur Phencyclidine Scrn Negative, Ur Amphetamines Screen Negative, U Benzodiazepines Scrn Negative, Urine Cocaine Screen Negative, U Marijuana (THC) Screen Negative 01/23/25 : WBC 6.5, RBC 3.85 L, Hgb 13.0, Hct 38.4, MCV 99.7 H, MCH 33.8 H, MCHC 33.9, RDW 11.9, Plt Count 159, MPV 10.8 H, Neut % (Auto) 55.9, Lymph % (Auto) 32.6, [place] % (Auto) 8.6, Eos % (Auto) 2.2, Baso % (Auto) 0.5, Neut # (Auto) 3.6, Lymph # (Auto) 2.1, [place] # (Auto) 0.6, Eos # (Auto) 0.1, Baso # (Auto) 0.0, PT 11.1, INR 1.00, APTT 25.2, Sodium 137, Potassium 4.3, Chloride 105, Carbon Dioxide 25, Anion Gap 11.3, BUN 15, Creatinine 0.70, Estimated GFR 80, Est GFR ( Amer) 97, Glucose 94, Calcium 8.9, Total Bilirubin 0.4, AST 29, ALT 24, Alkaline Phosphatase 102, Troponin I < 0.01, Total Protein 7.3, Albumin 4.2, Globulin 3.1, Albumin/Globulin Ratio 1.4, Triglycerides 88, Cholesterol 111 L, L DL Cholesterol Direct 48.64 L, VLDL Cholesterol 18, HDL Cholesterol 50, Cholesterol/HDL Ratio 2.2, Plasma/Serum Alcohol < 10 01/24/25 01:06: Troponin I < 0.01 01/23/25 Unknown 01/23/25 Unknown Orders (Tests/Meds): ED MEDICATIONS Generic Name Dose Route Start Last Admin Trade Name Jarenq PRN Reason Stop Dose Admin Sodium Chloride 10 ml 01/23/25 21:59 Sodium Chloride 0.9% 10ml Flush Syringe IV 02/22/25 21:58 NEEDED PRN Maintain IV Site Sodium Chloride 10 ml 01/23/25 22:07 01/23/25 22:08 Sodium Chloride 0.9% 10ml Syr (Rad Only) IV 02/22/25 22:06 10 ml NEEDED PRN Administration Maintain IV Site Discontinued Medications Generic Name Dose Route Start Last Admin Trade Name Fannie PRN Reason Stop Dose Admin Aspirin 81 mg 01/23/25 22:44 01/23/25 22:46 Aspirin 81mg Chewable Tablet PO 01/23/25 22:45 81 mg ONCE ONE Administration Sodium Chloride 1,000 mls @ 999 mls/hr 01/23/25 22:44 01/24/25 01:05 Sod Chlor 0.9% 1000ml Bag IV 01/23/25 23:44 Infused .Q1H1M ONE Infusion Iopamidol 80 ml 01/23/25 22:07 01/23/25 22:08 Iopamidol-370 (76%);100ml Bottle IV 01/23/25 22:08 80 ml ONCE ONE Administration Sodium Chloride 50 ml 01/23/25 22:07 01/23/25 22:08 0.9 % Sodium Chloride 50 Ml Vial IV 01/23/25 22:08 50 ml ONCE ONE Administration ORDERS Category Date Time Status CT angio head Stat Cat Scan 01/23/25 21:[address] angio neck Stat Cat Scan 01/23/25 21:[address] head/brain wo con Stat Cat Scan 01/23/25 21:59 Completed CXR --portable [XR chest portable] Stat Exams 01/23/25 22:38 Completed Activated Partial Thrombo Time Stat Lab 01/23/25 Completed Complete Blood Count Auto Diff Stat Lab 01/23/25 Completed Comprehensive Metabolic Panel Stat Lab 01/23/25 Completed Drug Screen,Urine Stat Lab 01/23/25 22:55 Completed Ethyl Alcohol Stat Lab 01/23/25 Completed Lipid Panel Stat Lab 01/23/25 Completed Prothrombin Time INR Stat Lab 01/23/25 Completed Troponin I Q3H Lab 01/24/25 01:06 Completed Troponin I Q3H Lab 01/24/25 04:00 Ordered Troponin I Stat Lab 01/23/25 Completed Urinalysis and Microscopic Stat Lab 01/23/25 22:55 Completed Urine Culture Stat Micro 01/23/25 22:55 Received Medical Decision Narrative: Patient is an 84-year-old female with a past medical history of a previous stroke with a left-sided facial droop at baseline who presented to the emergency department from scene as a stroke alert. On arrival, patient was hemodynamically stable. Patient had a normal blood sugar. Differential includes but not limited to: CVA, large vessel occlusion, recrudescence of old stroke, urinary tract infection, viral syndrome, amongst others. On exam, patient had an NIH of 2, patient had full strength in her bilateral upper extremities bilateral lower extremities. Patient sensation was intact. Patient had no ataxia with [id number] or [id number]. Patient's vision was intact. Patient had a left-sided facial droop which is her baseline. CT head CTAs were obtained immediately on arrival. Per radiology no new stroke or large vessel occlusion. Patient had signs of old stroke in the right temporal region. I discussed the case with the wellness program coordinator at [facility] discussion was to not give TNK patient is already on blood thinners. Patient with a low NIH of 2. Per discussion with stroke director of photography patient was given aspirin here in the emergency department. After further discussion and given that we do not have the capabilities to get MRI over the weekend, they excepted the patient to [facility] for transfer to get MRI and further workup. Patient was given IV fluids here in the emergency department for low blood pressures. Patient's labs were reviewed and interpreted by myself: CBC showed no leukocytosis, hemoglobin was stable. CMP was unremarkable. Trop was less than 0.01. Signed out to the oncoming provider pending transfer to [facility] versus admission depending on availability of bed. <Adam Barr MD - Last Filed: 01/24/25 02:08> Vital Signs: 01/23/25 22:18 01/23/25 22:30 01/24/25 02:02 Temperature 97.9 F 98.4 F Temperature Source Oral Oral Pulse Rate 84 72 Pulse Rate [Left] 80 Respiratory Rate 20 16 Blood Pressure 108/65 L 140/82 Blood Pressure [Right Arm] 121/67 Blood Pressure Mean 80 Blood Pressure Mean [Right Arm] 85 Blood Pressure Source Automatic Cuff Blood Pressure Source [Right Arm] Automatic Cuff Blood Pressure Position Supine Blood Pressure Position [Right Arm] Sitting 02 Sat by Pulse Oximetry 93 L 96 Oxygen Delivery Method Room Air Room Air Lab Data Lab Results 01/23/25 22:55: Urine Color Yellow, Urine Appearance Clear, Urine pH 7.0, Ur Specific [place] 1.015, Urine Protein Negative, Urine Glucose (UA) Negative, Urine Ketones Negative, Urine Blood 2+ A, Urine Nitrate Negative, Urine Bilirubin Negative, Urine Urobilinogen 0.2, Ur Leukocyte Esterase 3+ A, Urine RBC 10-20, Urine WBC 10-20, Ur Squamous Epith Cells 3-5, Urine Bacteria 1+, Urine Opiates Screen Negative, Urine Methadone Screen Negative, Ur Barbituates Screen Negative, Ur Phencyclidine Scrn Negative, Ur Amphetamines Screen Negative, U Benzodiazepines Scrn Negative, Urine Cocaine Screen Negative, U Marijuana (THC) Screen Negative 01/23/25 : WBC 6.5, RBC 3.85 L, Hgb 13.0, Hct 38.4, MCV 99.7 H, MCH 33.8 H, MCHC 33.9, RDW 11.9, Plt Count 159, MPV 10.8 H, Neut % (Auto) 55.9, Lymph % (Auto) 32.6, [place] % (Auto) 8.6, Eos % (Auto) 2.2, Baso % (Auto) 0.5, Neut # (Auto) 3.6, Lymph # (Auto) 2.1, [place] # (Auto) 0.6, Eos # (Auto) 0.1, Baso # (Auto) 0.0, PT 11.1, INR 1.00, APTT 25.2, Sodium 137, Potassium 4.3, Chloride 105, Carbon Dioxide 25, Anion Gap 11.3, BUN 15, Creatinine 0.70, Estimated GFR 80, Est GFR ( Amer) 97, Glucose 94, Calcium 8.9, Total Bilirubin 0.4, AST 29, ALT 24, Alkaline Phosphatase 102, Troponin I < 0.01, Total Protein 7.3, Albumin 4.2, Globulin 3.1, Albumin/Globulin Ratio 1.4, Triglycerides 88, Cholesterol 111 L, L DL Cholesterol Direct 48.64 L, VLDL Cholesterol 18, HDL Cholesterol 50, Cholesterol/HDL Ratio 2.2, Plasma/Serum Alcohol < 10 01/24/25 01:06: Troponin I < 0.01 Orders (Tests/Meds): ED MEDICATIONS Generic Name Dose Route Start Last Admin Trade Name Freq PRN Reason Stop Dose Admin Sodium Chloride 10 ml 01/23/25 21:59 Sodium Chloride 0.9% 10ml Flush Syringe IV 02/22/25 21:58 NEEDED PRN Maintain IV Site Sodium Chloride 10 ml 01/23/25 22:07 01/23/25 22:08 Sodium Chloride 0.9% 10ml Syr (Rad Only) IV 02/22/25 22:06 10 ml NEEDED PRN Administration Maintain IV Site Discontinued Medications Generic Name Dose Route Start Last Admin Trade Name Freq PRN Reason Stop Dose Admin Aspirin 81 mg 01/23/25 22:44 01/23/25 22:46 Aspirin 81mg Chewable Tablet PO 01/23/25 22:45 81 mg ONCE ONE Administration Sodium Chloride 1,000 mls @ 999 mls/hr 01/23/25 22:44 01/24/25 01:05 Sod Chlor 0.9% 1000ml Bag IV 01/23/25 23:44 Infused .Q1H1M ONE Infusion Iopamidol 80 ml 01/23/25 22:07 01/23/25 22:08 Iopamidol-370 (76%);100ml Bottle IV 01/23/25 22:08 80 ml ONCE ONE Administration Sodium Chloride 50 ml 01/23/25 22:07 01/23/25 22:08 0.9 % Sodium Chloride 50 Ml Vial IV 01/23/25 22:08 50 ml ONCE ONE Administration ORDERS Category Date Time Status CT angio head Stat Cat Scan 01/23/25 21:[address] angio neck Stat Cat Scan 01/23/25 21:[address] head/brain wo con Stat Cat Scan 01/23/25 21:59 Completed CXR --portable [XR chest portable] Stat Exams 01/23/25 22:38 Completed Activated Partial Thrombo Time Stat Lab 01/23/25 Completed Complete Blood Count Auto Diff Stat Lab 01/23/25 Completed Comprehensive Metabolic Panel Stat Lab 01/23/25 Completed Drug Screen,Urine Stat Lab 01/23/25 22:55 Completed Ethyl Alcohol Stat Lab 01/23/25 Completed Lipid Panel Stat Lab 01/23/25 Completed Prothrombin Time INR Stat Lab 01/23/25 Completed Troponin I Q3H Lab 01/24/25 01:06 Completed Troponin I Q3H Lab 01/24/25 04:00 Ordered Troponin I Stat Lab 01/23/25 Completed Urinalysis and Microscopic Stat Lab 01/23/25 22:55 Completed Urine Culture Stat Micro 01/23/25 22:55 Received Medical Decision Narrative: Patient is an 84-year-old female with a past medical history of a previous stroke with a left-sided facial droop at baseline who presented to the emergency department from scene as a stroke alert. On arrival, patient was hemodynamically stable. Patient had a normal blood sugar. Differential includes but not limited to: CVA, large vessel occlusion, recrudescence of old stroke, urinary tract infection, viral syndrome, amongst others. On exam, patient had an NIH of 2, patient had full strength in her bilateral upper extremities bilateral lower extremities. Patient sensation was intact. Patient had no ataxia with [id number] or [id number]. Patient's vision was intact. Patient had a left-sided facial droop which is her baseline. CT head CTAs were obtained immediately on arrival. Per radiology no new stroke or large vessel occlusion. Patient had signs of old stroke in the right temporal region. I discussed the case with the wellness program coordinator at [facility] discussion was to not give TNK patient is already on blood thinners. Patient with a low NIH of 2. Per discussion with stroke director of photography patient was given aspirin here in the emergency department. After further discussion and given that we do not have the capabilities to get MRI over the weekend, they excepted the patient to [facility] for transfer to get MRI and further workup. Patient was given IV fluids here in the emergency department for low blood pressures. Patient's labs were reviewed and interpreted by myself: CBC showed no leukocytosis, hemoglobin was stable. CMP was unremarkable. Trop was less than 0.01. Signed out to the oncoming provider pending transfer to [facility] versus admission depending on availability of bed. Momo SMYTH: I assumed care of the patient at the time of handoff from the prior provider. On reevaluation patient remained stable. Patient was transferred in stable condition to [facility]. Critical Care <Lani Lr, DO - Last Filed: 01/24/25 01:03> Critical Care Time Critical Care Time: No
[2025-01-23] MEDS: ASPIRIN 81MG CHEWABLE TABLET 81 MG PO (22:46)
[2025-01-23] MEDS: 0.9 % SODIUM CHLORIDE 1000ML 1,000 ML 999 ML IV (22:58)
[2025-01-23 23:00] LABS: Microscopic, Urine URINE MICROSCOPIC (MICROSCOPIC)
[2025-01-23 23:06] LABS: Bilirubin,Urine Negative (Negative); Color,Urine YELLOW (Yellow); Glucose,Urine (UA) Negative (Negative); Ketones,Urine Negative (Negative); Leukocyte Esterase,Urine 3+ (Negative); PH,Urine 7.0 (5.0-8.5); Protein,Urine Negative (Negative); Specific Gravity, Urine 1.015 (1.005-1.030); Urobilinogen,Urine 0.2 EU/dl (0.2)
[2025-01-23 23:18] LABS: Barbiturates Screen,Urine Negative ng/ml (<200)
[2025-01-23 23:19] LABS: Amphetamine/Metha Screen,Urine Negative ng/ml (<1000); Benzodiazepines Screen,Urine Negative ng/ml (<200)
[2025-01-23 23:21] LABS: Methadone Screen,Urine Negative ng/ml (<300)
[2025-01-23 23:22] LABS: Opiate Screen,Urine Negative ng/ml (<300); Phencyclidine Screen,Urine Negative ng/ml (<25)
[2025-01-24 00:03] LABS: Bacteria,Urine 1+ /lpf
[2025-01-24 01:48] LABS: Troponin I < 0.01 ng/ml (0.00-0.034)
[2025-01-24 02:02] VITALS: BP 140/82; PULSE 72; RESP 16; TEMP 36.9; O2SAT 99
[2025-01-24 02:26] LABS: Lactate Venous 1.4 mmol/L (0.4-2.0); VBG HCO3 23.8 mmol/L (23-30); VBG PCO2 37.7 mmol/L (35-51); VBG PH 7.42 mmol/L (7.31-7.41); VBG PO2 58.7 mmol/L (28-40)
== END 2025-01-24 02:52 | disposition other institution (70) ==
PROVIDERS: Nurse Practitioner; Emergency Provider Student in an Organized Health Care Education/Training Program; PCP Internal Medicine Adolescent Medicine
DX: I63.9 Cerebral infarction, unspecified (principal); R47.81 Slurred speech; I10 Essential (primary) hypertension; E78.5 Hyperlipidemia, unspecified; Z86.73 Personal history of transient ischemic attack (TIA), and cerebral infarction without residual deficits; Z79.01 Long term (current) use of anticoagulants; R29.702 NIHSS score 2
CPT/HCPCS: 70450; 70496; 70498; 71045; 80053; 80061; 80307; 80320; 81001; 82803; 84484; 85025; 85610; 85730; 87086; 93005; 96360; 99285; J7030; Q9967

== ENCOUNTER 2025-02-20 18:22 | Observation (INO) | payer MEDICARE, SELFPAY ==
--- OUTSIDE RECORDS SUMMARY | 2025-01-24 03:51 | XMS_ITS | Encounter Summary ---
[facility] Address [address] [place] [address] Care Team Providers Care Project Production Engineer Name Role Phone Hawk Davis MD Primary Care Provider [phone] Reason for Referral * Consultation (Routine) - Closed Specialty Diagnoses / Procedures Referred By Rodolfo lara Referred To Contact Neurology Diagnoses Memory deficit Procedures MT OFFICE/OUTPATIENT NEW MODERATE MDM 45 MINUTES Sreedhar Boss DO [address] [facility] [address] [place] [address] Phone: tel: fax: Julianna Washington APRN [address] [facility] [address] [place] [address] Phone: tel: fax: Referral ID Status Reason Start Date Expiration Date V isits Requested Visits Authorized [id number] Closed Specialty Services Required 01/26/2025 04/27/2026 1 1 Reason for Visit * Auth/Cert Specialty Diagnoses / Procedures Referred By Rodolfo lara Referred To Contact Diagnoses Cerebrovascular Accident (cva) Referral ID Status Reason Start Date Expiration Date Visits Re quested Visits Authorized [id number] 1 1 Encounter Details Date Type Department Care Team (Late st Contact Info) Description 01/24/2025 3:51 AM EST - 01/26/2025 3:14 PM EST Hospital Encounter [address] [place] [address] Anup Daniel MD [address] [place] [address] Sreedhar Boss DO [address] [place] [address] [place] [address] Cognitive communication deficit (Primary Dx); Memory deficit Discharge Disposition: Home or Self Care Social History Tobacco Use Types Packs/Day Years Used Date Smoking Tobacco: Former Alcohol Use Standard Drinks/Week Comments Yes 1 (1 standard drink = 0.6 oz pur e alcohol) socially AUDIT-C Answer Date Recorded Q1: How often do you have a drink containing alcohol? Never 01/26/2025 Q2: How many drinks containi ng alcohol do you have on a typical day when you are drinking? Patient does not drink Q3: How often do you have si x or more drinks on one occasion? Never 01/26/2025 Overall Financial Resource Strain (CARDIA) Answe r Date Recorded How hard is it for you to pa y for the very basics like food, housing, medical care, and heating? Not hard at all 01/26/2025 [facility] Occupat ional Health - Occupational Stress Questionnaire Answer Date Recorded Do you feel stress - tense, restless, nervous, or anxious, or unable to sleep at night because your mind is troubled all the time - these days? Not at all 01/26/2025 Exercise Vital Sign Answer Date Recorde d On average, how many days pe r week do you engage in moderate to strenuous exercise (like a brisk walk)? 0 days 01/26/2025 On average, how many minutes do you engage in exercise at this level? 0 min 01/26/2025 Hunger Vital Sign Answer Date Recorded Within the past 12 months, y ou worried that your food would run out before you got the money to buy more. Never true 01/27/20 25 Within the past 12 months, t he food you bought just didn't last and you didn't have money to get more. Never true 01/26/2025 PRAPARE - Transportation Answer Date Re corded In the past 12 months, has l ack of transportation kept you from medical appointments or from getting medications? No 01/17 In the past 12 months, has l ack of transportation kept you from meetings, work, or from getting things needed for daily living? No 01/26/2025 [facility] Utilities Answer Date Recorded In the past 12 months has th e electric, gas, oil, or water company threatened to shut off services in your home? No 01/26/2025 Abuse Screen Answer Date Recorded Feels Unsafe at Home or Work/School no 01/26/2025 Feels Threatened by Someone no 01/17 Does Anyone Try to Keep You From Having Contact with Others or Doing Things Outside Your Home? no 01/26/2025 Physical Signs of Abuse Present no 01/26/2025 Housing Stability Answer Date Recorded Current Living Arrangements home 01/17 Potentially Unsafe Housing Conditions none 01/26/2025 Family and Community Support Answer Johnson e Recorded If for any reason you need h elp with day-to-day activities such as bathing, preparing meals, shopping, managing finances, etc., do you get the help you need? I don't need any help 01/26/2025 How often do you feel lonely or isolated from those around you? Never 01/26/2025 Employment Answer Date Recorded Do you want help finding or keeping work or a job? I do not need or want help 01/26/2025 Disabilities Answer Date Recorded Difficulty Concentrating, Remembering or Making Decisions no 01/26/2025 Difficulty Managing Errands Independently no 01/26/2025 Education Answer Date Recorded Help with school or training? Not on file Preferred Language Ugandan 01/26/2025 PHQ-2 Answer Date Recorded Patient Health Questionnaire-2 Score 0 01/26/2025 Comments No Sex and Gender Information Value Date Recorded Sex Assigned at Not on file Legal Sex Female 8:49 AM EDT Gender Identity Not on file Sexual Orientation Not on file documented as of this encounter Last Filed Vital Signs Vital Sign Reading Time Taken Comments Blood Pressure 154/88 01/26/2025 11:05 AM EST Pulse 75 01/26/2025 11:05 AM EST Temperature 36.7 C (98.1 F) 01/26/2025 11:05 AM EST Respiratory Rate 18 01/26/2025 11:05 AM EST Oxygen Saturation 96% 01/26/2025 11:05 AM EST Inhaled Oxygen Concentration - - Weight 71.1 kg (156 lb 12 oz) 01/24/2025 2:20 PM EST Height 170 cm (5' 6.93 ) 01/24/2025 3:00 AM EST Body Mass Index 24.6 01/24/2025 3:00 AM EST documented in this encounter Functional Status * AUDIT-C Score Answer Date of Assessment Author 0 01/26/2025 11:56 AM Carla Natarajan RN * Question Answer Date of Assessment Author Q1: How often do you have a drink containing alcohol? Never 01/26/2025 11:56 AM Lila Natarajan R N Q2: How many drinks containing alcohol do you have on a typical day when you are drinking? Patient does not drink 01/26/2025 11:56 AM Lila Natarajan RN Q3: How often do you have six or more drinks on one occasion? Never 01/26/2025 11:56 AM Lila Natarajan R N * Over the past 2 weeks, how often have you been bothered by any of the following problems? Question Answer Date of Assessment Author Patient Health Questionnaire-2 Score 0 01/17 11:56 AM Lila Natarajan RN * Question Answer Date of Assessment Author 1. Wish to be (Past 1 Month) No 025 4:02 AM Hawk Camarillo RN 2. Non-Specific Active Suici luis antonio Thoughts (Past 1 Month) No 01/24/2025 4:02 AM Braeden Camarillo RN * Calculated C-SSRS Risk Score (Lifetime/Recent) Answer Date of Assessment Author No Risk Indicated 01/24/2025 4:02 AM Hawk Reyes RN * [place] Suicide Severity Rating Scale (Screener/Recent Self-Report) Question Answer Date of Assessment Author 6. Suicidal Behavior (Lifetime) No 4:02 AM Hawk Camarillo RN * Question Answer Date of Assessment Author Little interest or pleasure in doing things Not at all 01/26/2025 11:56 AM EST Stone, Lila M, R N Feeling down, depressed, or hopeless Not at all 01/26/2025 11:56 AM EST Lila Meza R N documented as of this encounter Discharge Summaries * Sreedhar Boss DO - 01/26/2025 2:17 PM EST Images from the original note were not included. [facility] Medicine Services DISCHARGE SUMMARY Patient Name: Lucille Campuzano : 1940 Date of Admission: 01/24/2025 3:51 AM Date of Discharge: 01/26/2025 Primary Care Physician: Hawk Davis MD Consults Date and Time Order Name Status Description 01/25/2025 9:53 AM Inpatient Neurology Consult General Completed Hospital Course Active Hospital Problems Diagnosis POA Slurred speech [R47.81] Yes Chronic use of opiate drug for therapeutic purpose [Z79.891] Not Applicable History of CVA with residual deficit [I69.30] Not Applicable Anxiety [F41.9] Yes Chronic insomnia [F51.04] Yes Depression [F32.A] 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 Hospital Course: Lucille Campuzano is a 84 y.o. 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 Per family, at baseline every couple months she will have episodes involving disorientation, hallucination, etc. They are also concerned about her taking her medicines correctly at home. She was having 1 of these episodes recently, her son spent the night with her for several nights, when it did not improve at its typical timeframe he also noticed slurred/incoherent speech and brought her to [facility]. She was evaluated as a code stroke, CT head and CTA H&N were unremarkable at the OSH, they did not have MRIavailable and requested transfer for formal stroke evaluation and MRI imaging. On arrival she did mention vomiting and diarrhea the day preceding her acutely worsening symptoms. Stroke evaluation included TTE that showed normal EF, grade 1 diastolic dysfunction, no significant valvular changes. MRIwas eventually obtained and demonstrated old RT posterior frontal infarct with gliosis, generalizedatrophy more pronounced bifrontal, chronic small vessel disease progressed since last imaging on file, and equivocal punctate focus of restricted diffusion in the LT medial inferior cerebellum (felt artifact by vascular neuroteam, also not consistent with symptoms). She has returned to her effective baseline, she did receive x 1 dose of fosfomycin for asymptomatic bacteriuria with E. coli in her urine culture. She is discharging home under the care of her family, I recommend a pill organizer tohelp minimize confusion with home meds. Referral has been placed to neurology for neurocognitive khurram ting/memory assessment. Episodic hallucinations and confusion Episode of slurred speech and confusion Prior RT MCA stroke w/ chronic LT facial droop Hx migraines - MRI with old stroke, atrophy more pronounced in the bifrontal region, chronic small vessel disease - Seen by vascular and general neuro service, no suspicion for acute stroke - Possible culprits include polypharmacy with numerous AGRICULTURE INSPECTOR affecting meds, early MCI/dementia, psychiatric illness, etc. -Neurology follow-up for neurocognitive testing Asymptomatic E. coli bacteriuria - Would not cause her cognitive changes above, did receive 1 dose of oral fosfomycin Anxiety Depression Insomnia Chronic Pain -cont lexapro, prn percocet -also takes seroquel 400mg and Lunesta at home -family noted issues w/ forgetfulness and possibility of incorrectly taking meds HTN/HLD - cont statin, restart amlodipine, Coreg Hx GIB/Hiatal hernia s/p Mary - ppi Discharge Follow Up Recommendations for outpatient labs/diagnostics: PCP 1 week Placed referral to neurology, CHRISTIANA Washington APRN for neurocognitive eval Day of Discharge HPI: No reported events overnight. Son at bedside. Pt feels about baseline. Vital Signs: Temp: [97.4 ??F (36.3 ??C)-98.3 ??F (36.8 ??C)] 98.1 ??F (36.7 ??C) Heart Rate: [65-92] 75 Resp: [16-18] 18 BP: (123-165)/(82-96) 154/88 Physical Exam: Constitutional: Awake, alert, NAD laying in bed Respiratory: Clear to auscultation bilaterally, respiratory effort normal Cardiovascular: RRR, palpable radial pulse Gastrointestinal: Positive bowel sounds, soft, nontender, nondistended Psychiatric: Appropriate affect, cooperative Neurologic: Significant LT facial droop (reported chronic), answering questions appropriately, moving extremities equally Pertinent and/or Most Recent Results LAB RESULTS: Lab 01/24/25 0616 WBC 10.37 HEMOGLOBIN 13.7 HEMATOCRIT 41.6 PLATELETS 157 MCV 103.2* Lab 01/25/25 1045 01/24/25 0617 SODIUM -- 143 POTASSIUM -- 3.7 CHLORIDE -- 108* CO2 -- 24.3 ANION GAP -- 10.7 BUN -- 9.5 CREATININE -- 0.60 EGFR -- 89.7 GLUCOSE -- 93 CALCIUM -- 8.6 MAGNESIUM -- 2.3 HEMOGLOBIN A1C 5.76* -- TSH -- 0.293 Lab 01/24/25 0617 TOTAL PROTEIN 7.0 ALBUMIN 4.4 GLOBULIN 2.6 ALT (SGPT) 20 AST (SGOT) 19 BILIRUBIN 0.3 ALK PHOS 91 Lab 01/25/25 1045 CHOLESTEROL 132 LDL CHOL 59 HDL CHOL 60 TRIGLYCERIDES 64 Brief Urine Lab Results (Last result in the past 365 days) Color Clarity Blood Leuk Est Nitrite Protein CREAT Urine HCG 01/24/25 0954 Yellow Turbid Large (3+) Large (3+) Negative Negative Microbiology Results (last 10 days) Procedure Component Value - Date/Time Urine Culture - Urine, Urine, Clean Catch [[id number]] (Abnormal) (Susceptibility) Collected: 01/24/25 0954 Lab Status: Final result Specimen: Urine, Clean Catch Updated: 01/26/25 09 Urine Culture >100,000 CFU/mL Escherichia coli Narrative: Colonization of the urinary tract without infection is common. Treatment is discouraged unless the patient is symptomatic, , or undergoing an invasive urologic procedure. Susceptibility Escherichia coli CELENA Amoxicillin + Clavulanate Susceptible Ampicillin Susceptible Ampicillin + Sulbactam Susceptible Cefazolin (Urine) Susceptible Cefepime Susceptible Ceftazidime Susceptible Ceftriaxone Susceptible Cefuroxime axetil Intermediate Gentamicin Susceptible Levofloxacin Susceptible Nitrofurantoin Susceptible Piperacillin + Tazobactam Susceptible Trimethoprim + Sulfamethoxazole Susceptible Respiratory Panel PCR w/COVID-19(SARS-CoV-2) CHERI/MAI/LO/PAD/COR/NATA In-House, ASSET PROTECTION REPRESENTATIVE Swab in UTM/VTM, 2 HR TAT - Swab, Nasopharynx [[id number]] (Normal) Collected: 01/24/25 0851 Lab Status: Final result Specimen: Swab from Nasopharynx Updated: 01/24/25 1256 ADENOVIRUS, PCR Not Detected Coronavirus 229E Not Detected Coronavirus HKU1 Not Detected Coronavirus NL63 Not Detected Coronavirus OC43 Not Detected COVID19 Not Detected Human Metapneumovirus Not Detected Human Rhinovirus/Enterovirus Not Detected Influenza A PCR Not Detected Influenza B PCR Not Detected Parainfluenza Virus 1 Not Detected Parainfluenza Virus 2 Not Detected Parainfluenza Virus 3 Not Detected Parainfluenza Virus 4 Not Detected RSV, PCR Not Detected Bordetella pertussis pcr Not Detected Bordetella parapertussis PCR Not Detected Chlamydophila pneumoniae PCR Not Detected Mycoplasma pneumo by PCR Not Detected Narrative: In the setting of a positive respiratory panel with a viral infection PLUS a negative procalcitoninwithout other underlying concern for bacterial infection, consider observing off antibiotics or discontinuation of antibiotics and continue supportive care. If the respiratory panel is positive for atypical bacterial infection (Bordetella pertussis, Chlamydophila pneumoniae, or Mycoplasma pneumoniae), consider antibiotic de-escalation to target atypical bacterial infection. MRI Brain Without Contrast Result Date: 01/26/2025 MRI BRAIN WO CONTRAST Date of Exam: 01/26/2025 1:52 AM EST Indication: Stroke, follow up Slurred speech. Comparison: 12/20/2020 Technique: Routine multiplanar/multisequence sequence images of the brain were obtained without contrast administration. Findings: The diffusion series shows an equivocal pu nctate focus of restricted diffusion in the left medial inferior cerebellum. This could reflect artifact due to its small size. The diffusion series is otherwise negative. Again seen is generalized atrophy, particularly bifrontal. Ventricular size and configuration are within normal limits. There is an old right posterior frontal infarct with gliosis. There is some associated chronic hemosiderin deposition. Scattered T2 hyperintensities are again seen in the periventricular and subcortical white matter, progressively worsened from prior, and most compatible with chronic small vessel ischemic disease. No acute hemorrhage is seen. There are no masses allowing for the lack of contrast. Craniocervical junction is normal. Pituitary gland is unremarkable. Major intracranial flow voids are maintained. 1.Equivocal punctate focus of restricted diffusion in the left medial inferior cerebellum. This could reflect artifact due to its small size. The diffusion series is otherwise negative. 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 3.Generalized atrophy, particularly bifrontal. 4.Chronic small vessel ischemic disease, progressively worsened from prior. Electronically Signed: Christian Cazares MD 01/26/2025 2:35 AM EST Workstation ID: [id number] Results for orders placed during the hospital encounter of 01/24/25 Adult Transthoracic Echo Complete W/ Cont if Necessary Per Protocol (With Agitated Saline) 01/24/2025 8:03 PM Interpretation Summary Left ventricular systolic function is normal. Estimated left ventricular EF = 70% Left ventricular diastolic function is consistent with (grade I) impaired relaxation. There is mild calcification of the aortic valve. There is no significant aortic valve stenosis or regurgitation present. Estimated right ventricular systolic pressure from tricuspid regurgitation is normal (<35 mmHg). I have personally reviewed the therapy plans: [] PT/OT/ ST Therapy Plans Discharge Details Discharge Medications New Medications Instructions Start Date aspirin 81 MG chewable tablet 81 mg, Oral, Daily Continue These Medications Instructions Start Date amLODIPine 5 MG tablet Commonly known as: NORVASC 5 mg, Daily atorvastatin 40 MG tablet Commonly known as: LIPITOR 40 mg, Oral, Nightly carvedilol 25 MG tablet Commonly known as: COREG 25 mg, 2 Times Daily With Meals clopidogrel 75 MG tablet Commonly known as: PLAVIX 75 mg, Oral, Daily diphenoxylate-atropine 2.5-0.025 MG per tablet Commonly known as: LOMOTIL 1 tablet, 2 Times Daily PRN escitalopram 20 MG tablet Commonly known as: LEXAPRO 1 tablet, Daily eszopiclone 3 MG tablet Commonly known as: LUNESTA 3 mg, Nightly ferrous sulfate 300 (60 Fe) MG/5ML syrup 300 mg, Oral, Daily oxyCODONE-acetaminophen 7.5-325 MG per tablet Commonly known as: PERCOCET 1 tablet, Oral, 3 Times Daily PRN pantoprazole 40 MG EC tablet Commonly known as: PROTONIX 40 mg, Oral, Daily QUEtiapine 200 MG tablet Commonly known as: SEROquel 200 mg, Nightly thiamine 100 MG tablet tablet Commonly known as: VITAMIN B-1 100 mg, Oral, Daily vitamin B-6 50 MG tablet Commonly known as: PYRIDOXINE 50 mg, Daily Stop These Medications ALPRAZolam 1 MG tablet Commonly known as: XANAX propranolol 40 MG tablet Commonly known as: INDERAL Remeron 15 MG tablet Generic drug: mirtazapine Allergies Allergen Reactions Haldol [Haloperidol] Unknown - High Severity Discharge Disposition: Home or Self Care Diet: Hospital: Diet Order Procedures Diet: Regular/House; Fluid Consistency: Thin (IDDSI 0) Standing Status: Standing Number of Occurrences: 1 Diets:: Regular/House Fluid Consistency:: Thin (IDDSI 0) Diet Instructions Regular diet as tolerated Activity: Activity Instructions As tolerated CODE STATUS: Code Status and Medical Interventions: CPR (Attempt to Resuscitate); Full Support Ordered at: 01/24/25 0600 Code Status (Patient has no pulse and is not breathing): CPR (Attempt to Resuscitate) Medical Interventions (Patient has pulse or is breathing): Full Support No future appointments. Additional Instructions for the Follow-ups that You Need to Schedule Ambulatory Referral to Neurology As directed Discharge Follow-up with PCP As directed Currently Documented PCP: Hawk Davis MD PCP Follow Up Details: 1 week Sreedhar Boss DO 01/26/25 Time Spent on Discharge: I spent 40 minutes on this discharge activity which included: [id number] with the patient, reviewing the data in the system, coordination of the care with the nursing staff as well as consultants, documentation, and entering orders. documented in this encounter Discharge Instructions * Discharge Instr - Activity* Hannah Barrera RN - 01/26/2025 1:29 PM EST As tolerated * Discharge Instr - Diet* Hannah Barrera RN - 01/26/2025 1:29 PM EST Regular diet as tolerated * Attachments The following attachments cannot be sent through Care Everywhere. * Aspirin Tablets (Ugandan) * Stroke Prevention [id number] (Ugandan) documented in this encounter Medications at Time of Discharge amLODIPine (NORVASC) 5 MG tablet Take 1 tablet by mouth Daily. aspirin 81 MG chewable tablet Chew 1 tablet Daily. 01/26/2025 atorvastatin (LIPITOR) 40 MG tablet Take 1 tablet by mouth Every Night. 12/25/2020 carvedilol (COREG) 25 MG tablet Take 1 tablet by mouth 2 (Two) Times a Day With Meals. clopidogrel (PLAVIX) 75 MG tablet Take 1 tablet by mouth Daily. 30 tablet 12/25/2020 diphenoxylate-at ropine (LOMOTIL) 2.5-0.025 MG per tablet Take 1 tablet by mouth 2 (Two) Times a Day As Needed for Diarrhea. escitalopram (LEXAPRO) 20 MG tablet Take 1 tablet by mouth Daily. eszopiclone (LUNESTA) 3 MG tablet Take 1 tablet by mouth Every Night. Take immediately before bedtime ferrous sulfate 300 (60 Fe) MG/5ML syrup Take 5 mL by mouth Daily. 12/25/2020 oxyCODONE-acetam inophen (PERCOCET) 7.5-325 MG per tabletIndication s:Right middle cerebral artery stroke Take 1 tablet by mouth 3 (Three) Times a Day As Needed for Moderate Pain . 12/25/2020 pantoprazole (PROTONIX) 40 MG EC tablet Take 1 tablet by mouth Daily. QUEtiapine (SEROquel) 200 MG tablet Take 1 tablet by mouth Every Night. thiamine (VITAMIN B-1) 100 MG tablet tablet Take 1 tablet by mouth Daily. 12/25/2020 vitamin B-6 (PYRIDOXINE) 50 MG tablet Take 1 tablet by mouth Daily. documented as of this encounter Progress Notes * Ji Caldwell MD - 01/26/2025 9:34 AM EST Stroke Progress Note Chief Complaint: Dysarthria Subjective Subjective Subjective: The patient is lying down in the bed in NAD. No other acute complains at this time Objective Temp: [97.4 ??F (36.3 ??C)-98.3 ??F (36.8 ??C)] 97.4 ??F (36.3 ??C) Heart Rate: [65-100] 65 Resp: [16-18] 18 BP: (123-165)/(82-96) 135/82 Objective GEN: lying in bed; in NAD HENT: normocephalic NEURO: Awake and alert. Oriented to self, time, place, and situation. Language is fluent with good comprehension. No evidence of aphasia Pupils are equal, round, and reactive to light. Visual narayan are full to confrontational testing. Extraocular movements intact. Left lower facial droop present (reported to be chronic). Facial sensation is intact. Hearing grossly intact. Mild dysarthria. Tongue protrudes midline. No abnormal movements. Able to maintain bilateral upper and lower extremities against gravity without drift. Sensation intact to light touch throughout. Coordination intact on [id number]. Reflexes and gait deferred. Results Review: I reviewed the patient's new clinical results. WBC Date Value Ref Range Status 01/24/2025 10.37 3.40 - 10.80 10*3/mm3 Final RBC Date Value Ref Range Status 01/24/2025 4.03 3.77 - 5.28 10*6/mm3 Final Hemoglobin Date Value Ref Range Status 01/24/2025 13.7 12.0 - 15.9 g/dL Final Hematocrit Date Value Ref Range Status 01/24/2025 41.6 34.0 - 46.6 % Final MCV Date Value Ref Range Status 01/24/2025 103.2 (H) 79.0 - 97.0 fL Final MCH Date Value Ref Range Status 01/24/2025 34.0 (H) 26.6 - 33.0 pg Final MCHC Date Value Ref Range Status 01/24/2025 32.9 31.5 - 35.7 g/dL Final RDW Date Value Ref Range Status 01/24/2025 11.9 (L) 12.3 - 15.4 % Final RDW-SD Date Value Ref Range Status 01/24/2025 45.7 37.0 - 54.0 fl Final MPV Date Value Ref Range Status 01/24/2025 10.8 6.0 - 12.0 fL Final Platelets Date Value Ref Range Status 01/24/2025 157 140 - 450 10*3/mm3 Final Lab Results Component Value Date GLUCOSE 93 01/24/2025 BUN 9.5 01/24/2025 CREATININE 0.60 01/24/2025 NA 143 01/24/2025 K 3.7 01/24/2025 CL 108 (H) 01/24/2025 CALCIUM 8.6 01/24/2025 PROTEINTOT 7.0 01/24/2025 ALBUMIN 4.4 01/24/2025 ALT 20 01/24/2025 AST 19 01/24/2025 ALKPHOS 91 01/24/2025 BILITOT 0.3 01/24/2025 GLOB 2.6 01/24/2025 AGRATIO 1.7 01/24/2025 BCR 15.8 01/24/2025 ANIONGAP 10.7 01/24/2025 EGFR 89.7 01/24/2025 MRI Brain Without Contrast Result Date: 01/26/2025 1.Equivocal punctate focus of restricted diffusion in the left medial inferior cerebellum. This could reflect artifact due to its small size. The diffusion series is otherwise negative. 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 3.Generalized atrophy, particularly bifrontal. 4.Chronic small vessel ischemic disease, progressively worsened from prior. Electronically Signed: Christian Cazares MD 01/26/2025 2:35 AM EST Workstation ID: [id number] Results for orders placed during the hospital encounter of 01/24/25 Adult Transthoracic Echo Complete W/ Cont if Necessary Per Protocol (With Agitated Saline) 01/24/2025 8:03 PM Interpretation Summary Left ventricular systolic function is normal. Estimated left ventricular EF = 70% Left ventricular diastolic function is consistent with (grade I) impaired relaxation. There is mild calcification of the aortic valve. There is no significant aortic valve stenosis or regurgitation present. Estimated right ventricular systolic pressure from tricuspid regurgitation is normal (<35 mmHg). Assessment/Plan Assessment: # Encephalopathy #Left facial droop, chronic #History of stroke #Hypertension #Hyperlipidemia 84-year-old female with PMH significant for right frontal stroke (residual LFD), HTN, HLD, GIB, anxiety, depression, chronic back pain, chronic opiate use, and insomnia who presented to [facility] with complaints of slurred speech x 3 weeks per patient (LKW per son 2030 yesterday), diarrhea,vomiting, and fever. NIH 2 for residual left facial droop from prior stroke. OSH reported the patient was altered. She reported to OSH that she recently had a facial surgery. Family reported that this was not accurate. Patient's granddaughter reported to the hospital medicine team that there is concern for increased confusion at night as well as accidentally taking extra doses of meds. Of note, she takes 400 mg of Seroquel, Lunesta, and occasionally Tylenol PM at bedtime. Imaging: CT head with chronic infarct in the right frontal lobe. CTA H/N with no evidence of LVO. MRI brain with questionable area of diffusion restriction in the left cerebellum, most likely to be artifact. Echocardiogram: EF 70%. No left atrial enlargement SERVICE CORRESPONDENT antiplatelet/anticoagulation/statin: Aspirin 81 mg, clopidogrel 75 mg, atorvastatin 40 mg Pertinent labs: LDL 59, A1c 5.76 MRI brain has small punctate area of possible diffusion restriction favored to be artifact. This finding, even if not artifact, would not explain patient's altered mental status. Altered mental status more likely to be explained by other toxic/metabolic/infectious etiologies. Of note patient's urine culture is growing E. coli. No further stroke workup indicated at this time patient is already on adequate secondary stroke prevention. 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 Stroke will now sign off. Please call for any further questions or concerns Ji Caldwell MD Vascular Neurologist [facility] * Marc Ambrocio MD - 01/25/2025 5:50 PM EST Images from the original note were not included. Neurology Note Patient: Lucille Campuzano DATE OF : 1940 REFERRING PHYSICIAN: Dr. Boss CHIEF COMPLAINT: Dysarthria, confusion HISTORY OF PRESENT ILLNESS: The patient is a 84 y.o. female with h/o stroke developed confusion and hallucinations, slurred speech. Past Medical History: Past Medical History: Diagnosis Date Anxiety Depression GI bleed Hyperlipidemia Hypertension Injury of back Past Surgical History: Past Surgical History: Procedure Laterality Date COLONOSCOPY N/A 12/22/2020 Procedure: COLONOSCOPY; Surgeon: Kenton Cedillo MD; Location: [facility]; Service: Gastroenterology; Laterality: N/A; ENDOSCOPY N/A 12/21/2020 Procedure: ESOPHAGOGASTRODUODENOSCOPY; Surgeon: Kenton Cedillo MD; Location: [facility]; Service: Gastroenterology; Laterality: N/A; ENDOSCOPY 12/22/2020 Procedure: ESOPHAGOGASTRODUODENOSCOPY WITH DEPLOYMENT OF PILL CAM FOR SMALL BOWEL ENTEROSCOPY; Surgeon: Kenton Cedillo MD; Location: [facility]; Service: Gastroenterology;; Replacement of 16 fr ng tube HYSTERECTOMY Social History: Social History Socioeconomic History Marital status: Tobacco Use Smoking status: Former Vaping Use Vaping status: Never Used Substance and Sexual Activity Alcohol use: Yes Alcohol/week: 1.0 standard drink of alcohol Types: 1 Glasses of wine per week Comment: socially Drug use: Never Sexual activity: Defer Family History: No family history on file. Medications Prior to Admission: Prior to Admission medications Medication Sig Start Date End Date Taking? Authorizing Provider amLODIPine (NORVASC) 5 MG tablet Take 1 tablet by mouth Daily. Yes Shannan Nugent MD atorvastatin (LIPITOR) 40 MG tablet Take 1 tablet by mouth Every Night. 12/25/20 Yes Crystal Beard II, DO carvedilol (COREG) 25 MG tablet Take 1 tablet by mouth 2 (Two) Times a Day With Meals. Yes Shannan Nugent MD clopidogrel (PLAVIX) 75 MG tablet Take 1 tablet by mouth Daily. 12/25/20 Yes Crystal Beard II, DO diphenoxylate-atropine (LOMOTIL) 2.5-0.025 MG per tablet Take 1 tablet by mouth 2 (Two) Times a DayAs Needed for Diarrhea. Yes Shannan Nugent MD escitalopram (LEXAPRO) 20 MG tablet Take 1 tablet by mouth Daily. Yes Shannan Nugent MD eszopiclone (LUNESTA) 3 MG tablet Take 1 tablet by mouth Every Night. Take immediately before bedtime Yes Shannan Nugent MD oxyCODONE-acetaminophen (PERCOCET) 7.5-325 MG per tablet Take 1 tablet by mouth 3 (Three) Times a Day As Needed for Moderate Pain . 12/25/20 Yes Crystal Beard II, DO QUEtiapine (SEROquel) 200 MG tablet Take 1 tablet by mouth Every Night. Yes Shannan Nugent MD thiamine (VITAMIN B-1) 100 MG tablet tablet Take 1 tablet by mouth Daily. 12/25/20 Yes Crystal Beard II, DO vitamin B-6 (PYRIDOXINE) 50 MG tablet Take 1 tablet by mouth Daily. Yes Shannan Nugent MD ALPRAZolam (XANAX) 1 MG tablet Take 1 tablet by mouth 2 (Two) Times a Day As Needed. Shannan Nugent MD ferrous sulfate 300 (60 Fe) MG/5ML syrup Take 5 mL by mouth Daily. 12/25/20 Crystal Beard II, DO mirtazapine (Remeron) 15 MG tablet Take 1 tablet by mouth every night at bedtime. ProviderShannan MD pantoprazole (PROTONIX) 40 MG EC tablet Take 1 tablet by mouth Daily. ProviderShannan MD propranolol (INDERAL) 40 MG tablet Take 1 tablet by mouth 2 (two) times a day. ProviderShannan MD Allergies: Haldol [haloperidol] Review of system Review of Systems Vitals: 01/25/25 1600 BP: Pulse: 89 Resp: Temp: SpO2: 91% Physical exam Physical Exam Lab Results Component Value Date WBC 10.37 01/24/2025 HGB 13.7 01/24/2025 HCT 41.6 01/24/2025 MCV 103.2 (H) 01/24/2025 PLT 157 01/24/2025 Lab Results Component Value Date GLUCOSE 93 01/24/2025 BUN 9.5 01/24/2025 CREATININE 0.60 01/24/2025 EGFRIFNONA >60 07/06/2021 EGFRIFAFRI >60 07/06/2021 BCR 15.8 01/24/2025 CO2 24.3 01/24/2025 CALCIUM 8.6 01/24/2025 ALBUMIN 4.4 01/24/2025 AST 19 01/24/2025 ALT 20 01/24/2025 ntains abnormal data Urinalysis, Microscopic Only - Urine, Clean Catch Order: [id number] - Reflex for Order [id number] Status: Final result Next appt: None Test Result Released: Yes (not seen) Specimen Information: Urine, Clean Catch 0 Result Notes Component Ref Range & Units (hover) 1 d ago RBC, UA 21-50 Abnormal WBC, UA Too Numerous to Count Abnormal Bacteria, UA 4+ Abnormal Squamous Epithelial Cells, UA 0-2 Hyaline Casts, UA None Seen Methodology Manual Light Microscopy Resulting Agency [facility] Specimen Collected: 01/24/25 09:54 EST Last Resulted: 01/24/25 11:02 EST Radiological Studies: Adult Transthoracic Echo Complete W/ Cont if Necessary Per Protocol (With Agitated Saline) Result Date: 01/24/2025 Left ventricular systolic function is normal. Estimated left ventricular EF = 70% Left ventricular diastolic function is consistent with (grade I) impaired relaxation. There is mild calcification of the aortic valve. There is no significant aortic valve stenosis or regurgitation present. Estimated right ventricular systolic pressure from tricuspid regurgitation is normal (<35 mmHg). During this visit the following were done: Labs Reviewed [] Labs Ordered [] Radiology Reports Reviewed [] Radiology Ordered [] EKG, echo, and/or stress test reviewed [] EEG results reviewed [] EEG reviewed and interpreted per myself [] Discussed case with neurointerventionalist or neuroradiologist [] Referring Provider Records Reviewed [] ER Records Reviewed [] Hospital Records Reviewed [] History Obtained From Family [] Radiological images view and Interpreted per myself [] Case Discussed with referring provider [] Decision to obtain and request outside records [] Assessment and Plan TME with increased dysarthria, h/o a prior stroke. Her symptoms are improving. Considerations include sleep deprivation and UTI. - Repeat MRI brain is pending. - Treat UTI. * Sreedhar Boss DO - 01/25/2025 9:39 AM EST Images from the original note were not included. [facility] Medicine Services PROGRESS NOTE Patient Name: Lucille Campuzano : 1940 Date of Admission: 01/24/2025 Primary Care Physician: Hawk Davis MD Subjective Subjective CC: F/u encephalopathy HPI: Patient seen at bedside this morning, reports patient has been having confusion and hallucinations for the week preceding admission. Has happened in the past, typically once every couple of months. She has never been formally evaluated for or diagnosed with dementia but reportedly her PCP has suspected it. Patient reports very poor sleep as well No cross-cover documentation, I do see an order for restraints placed last night. The son at bedside states that he was told the patient was wandering into other patient rooms, seeing people who werenot there, etc. Objective Objective Vital Signs: Temp: [97.8 ??F (36.6 ??C)-98.2 ??F (36.8 ??C)] 98.2 ??F (36.8 ??C) Heart Rate: [83-104] 90 Resp: [16] 16 BP: (134-158)/(82-97) 143/84 Physical Exam: Constitutional: Awake, alert, sitting up in bed in NAD Respiratory: Clear to auscultation bilaterally, respiratory effort normal Cardiovascular: RRR, palpable radial pulse Gastrointestinal: Positive bowel sounds, soft, nontender, nondistended Psychiatric: Appropriate affect, cooperative Neurologic: Significant LT facial droop (reported chronic), interactive and answering questions appropriately but takes frequent diversions in conversation Results Reviewed: LAB RESULTS: Lab 01/24/25 0616 WBC 10.37 HEMOGLOBIN 13.7 HEMATOCRIT 41.6 PLATELETS 157 MCV 103.2* Lab 01/24/25 0617 SODIUM 143 POTASSIUM 3.7 CHLORIDE 108* CO2 24.3 ANION GAP 10.7 BUN 9.5 CREATININE 0.60 EGFR 89.7 GLUCOSE 93 CALCIUM 8.6 MAGNESIUM 2.3 TSH 0.293 Lab 01/24/25 0617 TOTAL PROTEIN 7.0 ALBUMIN 4.4 GLOBULIN 2.6 ALT (SGPT) 20 AST (SGOT) 19 BILIRUBIN 0.3 ALK PHOS 91 Brief Urine Lab Results (Last result in the past 365 days) Color Clarity Blood Leuk Est Nitrite Protein CREAT Urine HCG 01/24/25 0954 Yellow Turbid Large (3+) Large (3+) Negative Negative Microbiology Results Abnormal None No radiology results from the last 24 hrs Results for orders placed during the hospital encounter of 01/24/25 Adult Transthoracic Echo Complete W/ Cont if Necessary Per Protocol (With Agitated Saline) 01/24/2025 8:03 PM Interpretation Summary Left ventricular systolic function is normal. Estimated left ventricular EF = 70% Left ventricular diastolic function is consistent with (grade I) impaired relaxation. There is mild calcification of the aortic valve. There is no significant aortic valve stenosis or regurgitation present. Estimated right ventricular systolic pressure from tricuspid regurgitation is normal (<35 mmHg). I have personally reviewed the therapy plans: [] PT/OT/ ST Therapy Plans Current medications: Scheduled Meds:[Held by provider] amLODIPine, 5 mg, Oral, Daily aspirin, 81 mg, Oral, Daily Or aspirin, 300 mg, Rectal, Daily atorvastatin, 40 mg, Oral, Nightly [Held by provider] carvedilol, 25 mg, Oral, BID With Meals clopidogrel, 75 mg, Oral, Daily escitalopram, 20 mg, Oral, Daily pantoprazole, 40 mg, Oral, Daily [Held by provider] QUEtiapine, 200 mg, Oral, Nightly sodium chloride, 10 mL, Intravenous, Q12H sodium chloride, 10 mL, Intravenous, Q12H Continuous Infusions: PRN Meds:. senna-docusate sodium AND polyethylene glycol AND bisacodyl AND bisacodyl Calcium Replacement - Follow Nurse / BPA Driven Protocol Magnesium Cardiology Dose Replacement - Follow Nurse / BPA Driven Protocol melatonin midazolam oxyCODONE-acetaminophen Phosphorus Replacement - Follow Nurse / BPA Driven Protocol Potassium Replacement - Follow Nurse / BPA Driven Protocol sodium chloride sodium chloride sodium chloride sodium chloride Assessment & Plan Assessment & Plan Active Hospital Problems Diagnosis POA Slurred speech [R47.81] Yes Chronic use of opiate drug for therapeutic purpose [Z79.891] Not Applicable History of CVA with residual deficit [I69.30] Not Applicable Anxiety [F41.9] Yes Chronic insomnia [F51.04] Yes Depression [F32.A] 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 Brief Hospital Course to date: Lucille Campuzano is a 84 y.o. 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 w/ chronic LT facial droop; she presented to [facility] as a stroke alert for reported slurred speech and incoherent speech; family noted concerns of pt having progressive memory issues, possible incorrect use of medications at home, and vomiting/diarrhea the day preceding evaluation; CT head and CTA H&N at OSH were unremarkable, MRI was not available and the stroke service accepted the patient in transfer Assessment/Plan Episodic hallucinations and confusion Episode of slurred speech and confusion Prior RT MCA stroke w/ chronic LT facial droop Hx migraines - MRI still pending - Seen by stroke service, at this point I think she would be better benefited from general neurology (consult placed) for assessment and potential adjustment of her neurocognitive meds; overall suspect some degree of underlying dementia/MCI compounded by polypharmacy and sleep deprivation Abnormal UA at OSH -UA at OSH reported abnl, noted squams in the sample - Bacteriuria on UA, culture in process, in the absence of systemic findings (fever, leukocytosis, etc.) this would not cause her neurocognitive changes Anxiety Depression Insomnia Chronic Pain -cont lexapro, prn percocet -also takes seroquel 400mg and Lunesta at home; holding here -family noted issues w/ forgetfulness and possibility of incorrectly taking meds - Will need outpatient evaluation HTN/HLD - cont statin, restart amlodipine, Coreg Hx GIB/Hiatal hernia s/p Mary - ppi Expected Discharge Location and Transportation: Home with family supervision VTE Prophylaxis: Mechanical VTE prophylaxis orders are present. AM-PAC 6 Clicks Score (PT): 22 (01/25/25 0829) CODE STATUS: Code Status and Medical Interventions: CPR (Attempt to Resuscitate); Full Support Ordered at: 01/24/25 0600 Code Status (Patient has no pulse and is not breathing): CPR (Attempt to Resuscitate) Medical Interventions (Patient has pulse or is breathing): Full Support Sreedhar Boss DO 01/25/25 * Sreedhar Boss DO - 01/24/2025 8:18 AM EST Images from the original note were not included. [facility] Medicine Services ADMISSION FOLLOW-UP NOTE Patient admitted after midnight, H&P by my partner performed earlier on today's date reviewed. Interim findings, labs, and charting also reviewed. 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 ADDITIONAL PLAN: - detailed assessment and plan from admission reviewed - Patient admitted this AM but Dr. Ivelisse Daniel, chart reviewed, patient seen at bedside; she does not recall many of yesterday's events (does not remember being at Hospital at all), she feels her baseline. 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 w/ chronic LT facial droop; she presented to [facility] as a stroke alert for reported slurred speech and incoherent speech; family noted concerns of pt having progressive memory issues, possible incorrect use of medications at home, and vomiting/diarrhea the day preceding evaluation; CT head and CTA H&N at OSH were unremarkable, MRI was not available and the stroke service accepted the patient in transfer Assessment/Plan Episode of slurred speech and confusion Prior RT MCA stroke w/ chronic LT facial droop Hx migraines -stroke service consulted, formal note pending -may be a stroke, also consider stroke recrudescence (favored), unintentional overdose/polypharmacy, or complex migraine -MRI ordered and pending -per nursing pt has passed swallow eval, diet ordered -on ASA, statin, plavix; permissive HTN until ok w/ stroke service Abnormal UA at OSH -UA at OSH reported abnl, noted squams in the sample -UA ordered here and not yet collected; regardless she has no evidence for systemic illness from a urinary source and this would not be the etiology of her neurologic symptoms Anxiety Depression Insomnia Chronic Pain -cont lexapro, prn percocet -also takes seroquel 400mg and Lunesta at home; holding here -family noted issues w/ forgetfulness and possibility of incorrectly taking meds -would benefit from outpatient neurocognitive testing HTN/HLD - cont statin, hold amlodipine and coreg until ok w/ stroke service Hx GIB/Hiatal hernia s/p Mary - ppi Sreedhar Boss DO 01/24/25 documented in this encounter H&P Notes * Anup Daniel MD - 01/24/2025 4:12 AM EST Images from the original note were not included. [facility] Medicine Services HISTORY AND PHYSICAL Patient Name: Lucille Campuzano : 1940 Primary Care Physician: Hawk Davis MD Date of admission: 01/24/2025 Subjective Subjective Chief Complaint: Slurred speech, confusion HPI: Lucille Campuzano is a 84 y.o. 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 She presented to [facility] with diarrhea and vomiting, and family reported slurred speech. Patient does not have memory of yesterday but had reported feeling generally ill the day before, family states she was progressively more confused over several days but yesterday she was laying in bed and was incoherent when she talked. Hey also report a tactile fever yesterday. Patient does report slight cough, and recent bout of loose stool. No dysuria or urinary frequency. Initial CT imaging showed no bleed or LVO however [facility] unable to obtain MRI over the weekend thus she was transferred here for further workup. Notably, patient's granddaughter told me outside the room that she is concerned the patient may be getting forgetful, notices signs of dementia, and on several occasions has gotten confused and accidentally taken extra dose of medications. Personal History Past Medical History: Diagnosis Date Anxiety Depression GI bleed Hyperlipidemia Hypertension Injury of back Past Surgical History: Procedure Laterality Date COLONOSCOPY N/A 12/22/2020 Procedure: COLONOSCOPY; Surgeon: Kenton Cedillo MD; Location: [facility]; Service: Gastroenterology; Laterality: N/A; ENDOSCOPY N/A 12/21/2020 Procedure: ESOPHAGOGASTRODUODENOSCOPY; Surgeon: Kenton Cedillo MD; Location: [facility]; Service: Gastroenterology; Laterality: N/A; ENDOSCOPY 12/22/2020 Procedure: ESOPHAGOGASTRODUODENOSCOPY WITH DEPLOYMENT OF PILL CAM FOR SMALL BOWEL ENTEROSCOPY; Surgeon: Kenton Cedillo MD; Location: [facility]; Service: Gastroenterology;; Replacement of 16 fr ng tube HYSTERECTOMY Family History: family history is not on file. Social History: reports that she has quit smoking. She does not have any smokeless tobacco history on file. She reports current alcohol use of about 1.0 standard drink of alcohol per week. She reports that she does not use drugs. Social History Social History Narrative Not on file Medications: Available home medication information reviewed. ALPRAZolam, QUEtiapine, amLODIPine, atorvastatin, carvedilol, clopidogrel, diphenoxylate-atropine, escitalopram, eszopiclone, ferrous sulfate, mirtazapine, oxyCODONE-acetaminophen, pantoprazole, propranolol, thiamine, and vitamin B-6 Allergies Allergen Reactions Haldol [Haloperidol] Unknown - High Severity Objective Objective Vital Signs: Temp: [97.6 ??F (36.4 ??C)] 97.6 ??F (36.4 ??C) Heart Rate: [77] 77 Resp: [18] 18 BP: (146)/(79) 146/79 Physical Exam AAOx3 EOMI PERRL Left facial droop Dysarthria MM dry Heart RRR Lungs CTAB Abd soft, nontender No peripheral edema Strength and sensation intact, symmetric. Result Review: I have personally reviewed the results from the time of this admission to 01/24/2025 06:01 EST and agree with these findings: [x] Laboratory list / accordion [x] Microbiology [x] Radiology [x] EKG/Telemetry [] Cardiology/Vascular [] Pathology [x] Old records [] Other: Most notable findings include: see A+P Outside w/u: WBC 6.5 h/h 13/38 plt 159 Na 137 K 4.3 bicarb 35 cr 0.7 glucose 97 UA with leuk esterase and 1+ bacteria CTH CTA nonacute LAB RESULTS: Microbiology Results (last 10 days) No results found for the last 240 hours. No radiology results from the last 24 hrs Results for orders placed during the hospital encounter of 12/20/20 Adult Transthoracic Echo Complete W/ Cont if Necessary Per Protocol 12/20/2020 3:36 PM Interpretation Summary ?? Left ventricular wall thickness is consistent with borderline concentric hypertrophy. ?? Normal left ventricular systolic function, estimated EF 65%. ?? Mild mitral regurgitation. ?? Mild tricuspid vegetation. ?? Calculated right ventricular systolic pressure from tricuspid regurgitation is 49 mmHg. ?? Negative saline bubble study. Assessment & Plan Assessment & Plan Slurred speech Anxiety Chronic insomnia Depression Chronic use of opiate drug for therapeutic purpose Juan's disease History of CVA with residual deficit Slurred speech Hx CVA with left facial droop -speech is improving currently, nearly back to normal per family. CT imaging of head negative thus far. Patient was transferred here for further stroke workup, MRI is pending. Appreciate stroke team recs. Started on DAPT. -permissive HTN -suspect this is toxic/metabolic, recrudescence of prior stroke symptoms given polypharmacy, possible infection. see below Abnormal UA Fever -reported subjectively at home, so far none documetned at OSH or here. UA w/ leuk esterase and bacteria, does not have urinary symotms. Hill hold abx and montor. Send urine culture, RVP Insomnia Anxiety -takes 400mg seroquel, lunesta, and occasional tylenol PM at bedtime. Family reports worsening confusion at night time, reports she may have accidentally take extra doeses of meds. Holding for now since it is too late in the night to have sedative. Discussed trying to minimize sedating/altering medication Chronic pain -hx back injury, on chronic oxy VTE Prophylaxis: Mechanical VTE prophylaxis orders are present. CODE STATUS: Code Status and Medical Interventions: CPR (Attempt to Resuscitate); Full Support Ordered at: 01/24/25 0600 Code Status (Patient has no pulse and is not breathing): CPR (Attempt to Resuscitate) Medical Interventions (Patient has pulse or is breathing): Full Support Expected Discharge Expected discharge date/ time has not been documented. Anup Daniel MD 11/08/25 documented in this encounter Consult Notes * Aliya Joya RN - 01/26/2025 8:24 AM ESTAssociated Order(s): IP CONSULT TO PRIVACY COMPLIANCE MANAGER Diabetes Education Patient Name: Lucille Campuzano Date of : 1940 Admit Date: 01/24/2025 Patient does not qualify for the follow up stroke class based on the exclusion criteria of no diabetes history. At the time of this review patient A1c is 5.76% , they have no noted history of diabetes and no home medications noted for treatment of diabetes. At this time we do not feel the patient would benefitfrom diabetes education. Thank you for this consult, should patient needs change please re consult us. Electronically signed by: Aliya Joya RN 01/26/25 08:24 EST * Kristina Whaley APRN - 01/24/2025 6:59 AM EST Stroke Consult Note Patient Name: Lucille Campuzano Age: 84 y.o. Sex: female : 1940 Primary Care Physician: Hawk Davis MD TIME PATIENT SEEN: 0830 EST Handedness: Right Race: Chief Complaint/Reason for Consultation: Dysarthria HPI: Lucille Campuzano is a 84-year-old female with PMH significant for right frontal stroke (residual LFD), HTN, HLD, GIB, anxiety, depression, chronic back pain, chronic opiate use, and insomnia who [facility] to [facility] with complaints of slurred speech x 3 weeks per patient (LKW per son 2030 yesterday), diarrhea, vomiting, and fever. NIH 2 for residual left facial droop from prior stroke. Reported the patient was altered. She reported to [facility] that she recently had a facial surgery. Family reported that this was not accurate. CT head with chronic infarct in the right frontal lobe. CTA H/N with no evidence of LVO. Family requested transfer to [facility] for additional stroke workup and MRI. UA with leukocyte esterase and bacteria, though she denied urinary symptoms. Her outside hospital workup included unremarkable CBC and metabolic panel. Antibiotics were held pending urine culture andfurther evaluation for infection She was started on dual antiplatelet therapy and managed with permissive hypertension. Patient's granddaughter reported to the hospital medicine team that there is concern for increased confusion at night as well as accidentally taking extra doses of meds. She takes 400 mg of Seroquel,Lunesta, and occasionally Tylenol PM at bedtime. On arrival to [facility], NIH is 2 for baseline left facial droop. Tangential thought process noted. She is a poor historian. She is oriented to person, place, and time. She is disoriented to situation. Last Known Normal Date/Time: 2029 Review of Systems Constitutional: Positive for fever. Negative for chills. HENT: Negative for congestion and trouble swallowing. Gastrointestinal: Positive for diarrhea, nausea and vomiting. Neurological: Positive for facial asymmetry and speech difficulty. Negative for weakness. Psychiatric/Behavioral: Positive for confusion. Past Medical History: Diagnosis Date Anxiety Depression GI bleed Hyperlipidemia Hypertension Injury of back Past Surgical History: Procedure Laterality Date COLONOSCOPY N/A 12/22/2020 Procedure: COLONOSCOPY; Surgeon: Kenton Cedillo MD; Location: [facility]; Service: Gastroenterology; Laterality: N/A; ENDOSCOPY N/A 12/21/2020 Procedure: ESOPHAGOGASTRODUODENOSCOPY; Surgeon: Kenton Cedillo MD; Location: [facility]; Service: Gastroenterology; Laterality: N/A; ENDOSCOPY 12/22/2020 Procedure: ESOPHAGOGASTRODUODENOSCOPY WITH DEPLOYMENT OF PILL CAM FOR SMALL BOWEL ENTEROSCOPY; Surgeon: Kenton Cedillo MD; Location: [facility]; Service: Gastroenterology;; Replacement of 16 fr ng tube HYSTERECTOMY No family history on file. Social History Socioeconomic History Marital status: Tobacco Use Smoking status: Former Vaping Use Vaping status: Never Used Substance and Sexual Activity Alcohol use: Yes Alcohol/week: 1.0 standard drink of alcohol Types: 1 Glasses of wine per week Comment: socially Drug use: Never Sexual activity: Defer Allergies Allergen Reactions Haldol [Haloperidol] Unknown - High Severity Prior to Admission medications Medication Sig Start Date End Date Taking? Authorizing Provider amLODIPine (NORVASC) 5 MG tablet Take 1 tablet by mouth Daily. Yes Shannan Nugent MD atorvastatin (LIPITOR) 40 MG tablet Take 1 tablet by mouth Every Night. 12/25/20 Yes Crystal Beard II DO carvedilol (COREG) 25 MG tablet Take 1 tablet by mouth 2 (Two) Times a Day With Meals. Yes Shannan Nugent MD clopidogrel (PLAVIX) 75 MG tablet Take 1 tablet by mouth Daily. 12/25/20 Yes Crystal Beard II, DO diphenoxylate-atropine (LOMOTIL) 2.5-0.025 MG per tablet Take 1 tablet by mouth 2 (Two) Times a DayAs Needed for Diarrhea. Yes Shannan Nugent MD escitalopram (LEXAPRO) 20 MG tablet Take 1 tablet by mouth Daily. Yes Shannan Nugent MD eszopiclone (LUNESTA) 3 MG tablet Take 1 tablet by mouth Every Night. Take immediately before bedtime Yes Shannan Nugent MD oxyCODONE-acetaminophen (PERCOCET) 7.5-325 MG per tablet Take 1 tablet by mouth 3 (Three) Times a Day As Needed for Moderate Pain . 12/25/20 Yes Crystal Beard II, DO QUEtiapine (SEROquel) 200 MG tablet Take 1 tablet by mouth Every Night. Yes Shannan Nugent MD thiamine (VITAMIN B-1) 100 MG tablet tablet Take 1 tablet by mouth Daily. 12/25/20 Yes Crystal Beard II, DO vitamin B-6 (PYRIDOXINE) 50 MG tablet Take 1 tablet by mouth Daily. Yes Shannan Nugent MD ALPRAZolam (XANAX) 1 MG tablet Take 1 tablet by mouth 2 (Two) Times a Day As Needed. Shannan Nugent MD ferrous sulfate 300 (60 Fe) MG/5ML syrup Take 5 mL by mouth Daily. 12/25/20 Crystal Beard II, DO mirtazapine (Remeron) 15 MG tablet Take 1 tablet by mouth every night at bedtime. Shannan Nugent MD pantoprazole (PROTONIX) 40 MG EC tablet Take 1 tablet by mouth Daily. Shannan Nugent MD propranolol (INDERAL) 40 MG tablet Take 1 tablet by mouth 2 (two) times a day. Provider, MD Shannan Temp: [97.6 ??F (36.4 ??C)] 97.6 ??F (36.4 ??C) Heart Rate: [76-79] 79 Resp: [18] 18 BP: (146)/(79) 146/79 Neurological Exam Mental Status Awake and alert. Oriented only to person, place and time. Language is fluent with no aphasia. Cranial Nerves CN II: Right visual acuity: Finger movement. Left visual acuity: Finger movement. CN III, IV, : Extraocular movements intact bilaterally. Pupils equal round and reactive to light bilaterally. CN V: Facial sensation is normal. CN VII: Left: There is central facial weakness. CN IX, X: Palate elevates symmetrically CN XI: Shoulder shrug strength is normal. CN XII: Tongue midline without atrophy or fasciculations. Motor Strength is 5/5 throughout all four extremities. Sensory Light touch is normal in upper and lower extremities. Coordination Right: Zkazzp-ep-upfa normal. Inpt-wg-dwlg normal.Left: Kkopwt-mv-mhqr normal. Indn-tz-idyb normal. Gait Not observed. Physical Exam Constitutional: General: She is awake. She is not in acute distress. HENT: Head: Normocephalic and atraumatic. Eyes: Extraocular Movements: Extraocular movements intact. Pupils: Pupils are equal, round, and reactive to light. Cardiovascular: Rate and Rhythm: Normal rate and regular rhythm. Pulmonary: Effort: Pulmonary effort is normal. No respiratory distress. Musculoskeletal: General: Normal range of motion. Cervical back: Normal range of motion. No rigidity. Skin: General: Skin is warm and dry. Capillary Refill: Capillary refill takes less than 2 seconds. Neurological: Mental Status: She is alert. Cranial Nerves: Cranial nerve deficit present. Sensory: No sensory deficit. Motor: Motor strength is normal.No weakness. Coordination: Coordination normal. Comments: Oriented to person place and time, disoriented to situation. Baseline LFD Psychiatric: Speech: Speech is tangential. Cognition and Memory: She exhibits impaired recent memory. Acute Stroke Data Thrombolytic Inclusion / Exclusion Criteria Time: 07:00 EST Person Administering Scale: Kristina Whaley APRN YES NO INCLUSION CRITERIA CLASS I [] [] Suspected diagnosis of acute ischemic stroke with measureable neurological deficit. Low NIHSS with disabling stroke symptoms. [] [] Onset of stroke symptoms < 3 hours before beginning treatment >/ 18 years old Stroke symptom onset = time patient was last seen well or without symptoms (LKW) [] [] Onset of symptoms between 3-4.5 hours: >/= 80 years old (safe Class IIa) with history of both diabetes and prior CVA (reasonable Class IIb) AND NIHSS </= 25 *If not eligible for IV Thrombolytic consider neuro intervention for LKW within 24 hours YES NO EXCLUSION CRITERIA (CONTRAINDICATIONS) CLASS III EVIDENCE HARM [] [] Blood pressure >185/110 medically refractory to IV medications [] [] Active bleeding at a non-compressible site [] [] Active intracranial hemorrhage (ICH) [] [] Symptoms suggestive of subarachnoid hemorrhage (SAH) [] [] GI bleed within 21 days [] [] Ischemic stroke within 3 months [] [] Severe head trauma within 3 months [] [] Intracranial or intraspinal surgery within 3 months [] [] Current GI malignancy [] [] Intracranial neoplasm [] [] Infective endocarditis [] [] Aortic arch dissection [] [] Active coagulopathy with INR >1.7, platelets <100,000, PTT > 40 sec, PT > 15 sec *For warfarin, administration can begin before blood tests resulted. Discontinue for above values. [] [] Treatment dose* of LMWH (Lovenox) in last 24 hours *prophylactic dosages are not a contraindication [] [] Concurrent use of antiplatelet agents' glycoprotein inhibitors IIb/IIIa (Integrilin, etc.) [] [] Thrombin or factor Xa inhibitors (Eliquis, Xarelto, Arixtra) taken in last 48 hours YES NO CLASS II: AIS WITH THE FOLLOWING CONDITIONS - TREATMENT RISKS SHOULD BE WEIGHED AGAINST POSSIBLE BENEFITS. [] [] Major trauma in last 14 days, recent major surgery in last 14 days, intracranial arterial dissection, giant unruptured and unsecured intracranial aneurysm, pericarditis [] [] The risks, benefits, and alternatives have been discussed with the patient or family related to the administration of IV thrombolytic therapy for stroke symptoms. [] [] I have discussed and reviewed the patient's case and imaging with the attending prior to IV thrombolytic therapy. TIME Time IV thrombolytic administered Hospital Meds: Scheduled- [Held by provider] amLODIPine, 5 mg, Oral, Daily atorvastatin, 40 mg, Oral, Nightly [Held by provider] carvedilol, 25 mg, Oral, BID With Meals clopidogrel, 75 mg, Oral, Daily escitalopram, 20 mg, Oral, Daily pantoprazole, 40 mg, Oral, Daily [Held by provider] QUEtiapine, 200 mg, Oral, Nightly sodium chloride, 10 mL, Intravenous, Q12H Infusions- lactated ringers, 100 mL/hr PRNs- senna-docusate sodium AND polyethylene glycol AND bisacodyl AND bisacodyl Calcium Replacement - Follow Nurse / BPA Driven Protocol Magnesium Cardiology Dose Replacement - Follow Nurse / BPA Driven Protocol oxyCODONE-acetaminophen Phosphorus Replacement - Follow Nurse / BPA Driven Protocol Potassium Replacement - Follow Nurse / BPA Driven Protocol sodium chloride sodium chloride Functional Status Prior to Current Stroke/Bastrop Score: 1 NIH Stroke Scale Time: 0830 Person Administering Scale: Kristina Whaley APRN 1a Level of consciousness: 0=alert; keenly responsive 1b. LOC questions: 0=Answers both questions correctly 1c. LOC commands: 0=Performs both tasks correctly 2. Best Gaze: 0=normal 3. Visual: 0=No visual loss 4. Facial Palsy: 2=Partial paralysis (total or near total paralysis of the lower face) 5a. Motor left arm: 0=No drift, limb holds 90 (or 45) degrees for full 10 seconds 5b. Motor right arm: 0=No drift, limb holds 90 (or 45) degrees for full 10 seconds 6a. motor left le=No drift, limb holds 90 (or 45) degrees for full 10 seconds 6b Motor right le=No drift, limb holds 90 (or 45) degrees for full 10 seconds 7. Limb Ataxia: 0=Absent 8. Sensory: 0=Normal; no sensory loss 9. Best Language: 0=No aphasia, normal 10. Dysarthria: 0=Normal 11. Extinction and Inattention: 0=No abnormality Total: 2 Results Reviewed: I have personally reviewed current lab, radiology, and data. Results for orders placed during the hospital encounter of 12/20/20 Adult Transthoracic Echo Complete W/ Cont if Necessary Per Protocol 12/20/2020 3:36 PM Interpretation Summary ?? Left ventricular wall thickness is consistent with borderline concentric hypertrophy. ?? Normal left ventricular systolic function, estimated EF 65%. ?? Mild mitral regurgitation. ?? Mild tricuspid vegetation. ?? Calculated right ventricular systolic pressure from tricuspid regurgitation is 49 mmHg. ?? Negative saline bubble study. Assessment/Plan: 84-year-old female with PMH significant for right frontal stroke (residual LFD), HTN, HLD, GIB, anxiety, depression, chronic back pain, chronic opiate use, and insomnia who presented to [facility] with complaints of slurred speech x 3 weeks per patient (LKW per son 2030 yesterday), diarrhea,vomiting, and fever. NIH 2 for residual left facial droop from prior stroke. OSH reported the patient was altered. She reported to OS MD that she recently had a facial surgery. Family reported that this was not accurate. CT head with chronic infarct in the right frontal lobe. CTA H/N with no evidence of LVO. Family requested transfer to [facility] for additional stroke workup and MRI. UA with leukocyte esterase and bacteria. ABX held pending culture.Patient's granddaughter reported to the hospital medicine team that there is concern for increased confusion at night as well as accidentally taking extra doses of meds. Of note, she takes 400 mg of Seroquel, Lunesta, and occasionally Tylenol PM at bedtime. Antiplatelet/Anticoagulant/Statin SERVICE CORRESPONDENT: Plavix 75 mg, atorvastatin 40 mg #AMS #Slurred speech #Chronic right frontal infarct (residual LFD) #HTN, HLD #Concern for polypharmacy #Chronic back pain (chronic opiate use) #Abnormal UA/fever/diarrhea/vomiting (ABX pending culture) - Suspected stroke recrudescence or TME in the setting of possible UTI, polypharmacy. - MRI brain pending to assess for AIS - Continue aspirin 81 mg daily for now - Continue home Plavix 75 mg daily - Continue atorvastatin 40 mg nightly - SBP<180, DBP <110. Ok to normalize BP goals if MRI is negative for AIS. Management per primary team. - Lipid panel, hemoglobin A1c pending - N.p.o. - Activity as tolerated/fall precautions - PT/OT/DRYING EQUIPMENT OPERATOR - Recommend avoiding sedating medications for now ( Seroquel, Lunesta). Okay for home oxycodone. Recommend decreasing frequency for now given concern for polypharmacy and AMS. - Plan discussed with Dr. Caldwell, patient, her family, and nursing staff. Stroke neurology willfollow MRI results. Please call with any questions or concerns. Kristina Whaley APRN, [facility] January 24, 2025 07:00 EST Cosigned by Marc Ambrocio MD at 01/25/2025 5:50 PM EST Associated attestation - Marc Ambrocio MD - 01/25/2025 5:50 PM EST I have reviewed this documentation and agree. documented in this encounter Nursing Notes * Maninder Mosquera RN - 01/25/2025 6:25 PM EST Goal Outcome Evaluation: Outcome Evaluation: Pt A&Ox3- disoriened to place. Neuro consulted today. Patient complaints ofheadache- tylenol given with some relief. NSR- sinus tachycardia. RA. patient currently in bed resting with call light in reach. * Dudley Gardner MS CCC-DRYING EQUIPMENT OPERATOR - 01/24/2025 3:06 PM EST Goal Outcome Evaluation: Plan of Care Reviewed With: patient, child Progress: no change Anticipated Discharge Disposition (DRYING EQUIPMENT OPERATOR): No further DRYING EQUIPMENT OPERATOR services warranted DRYING EQUIPMENT OPERATOR Diagnosis: cognitive-linguistic disorder (01/24/25 1330) DRYING EQUIPMENT OPERATOR Diagnosis Comments: Pt is resistant to information. She does not acknowledge deficits and declines to participate in any further DRYING EQUIPMENT OPERATOR assessment. (01/24/25 133) * Laney Riggins OT - 01/24/2025 10:45 AM EST Goal Outcome Evaluation: Plan of Care Reviewed With: patient Progress: no change Outcome Evaluation: OT eval complete. Pt presents below fxl baseline, limited by cognitive impairments that decrease safety awareness and processing, mild balance deficits, and decreased activity tolerance. Pt demonstrated difficulty with processing/problem solving during ambulation and functional assessments, requiring repeated and frequent cues for safety and to remain on task. Pt would benefitfrom ongoing skilled OT services to progress to PLOF. Rec d/c to home with 24/7 assist and HH OT/PTservices. Anticipated Discharge Disposition (OT): home with 24/7 care, home with home health * Hailey Acuna PT - 01/24/2025 10:40 AM EST Goal Outcome Evaluation: Plan of Care Reviewed With: patient Progress: no change Outcome Evaluation: Patient presents with weakness, decreased balance, and cognitive deficits affecting functional mobility. Note some difficulty with following commands and processing, with challenges orienting to objects to L and R in hallway and decreased safety awareness. IP PT services warranted to support return to baseline. Recommend patient returns home with 24/7 supervision for safety and HHPT at discharge. Anticipated Discharge Disposition (PT): home with 24/7 care, home with home health * Sandhya Marcelo RN - 01/24/2025 3:00 AM EST Problem: Adult Inpatient Plan of Care Goal: Plan of Care Review Outcome: Progressing Goal: Patient-Specific Goal (Individualized) Outcome: Progressing Goal: Absence of Hospital-Acquired Illness or Injury Outcome: Progressing Goal: Optimal Comfort and Wellbeing Outcome: Progressing Goal: Readiness for Transition of Care Outcome: Progressing Problem: Fall Injury Risk Goal: Absence of Fall and Fall-Related Injury Outcome: Progressing Problem: Pain Acute Goal: Optimal Pain Control and Function Outcome: Progressing Goal Outcome Evaluation: documented in this encounter Miscellaneous Notes * Case Management/Social Work - Lila Meza RN - 01/26/2025 11:58 AM EST Discharge Planning Assessment [facility] Patient Name: Lucille Campuzano Today's Date: 01/26/2025 Admit Date: 01/24/2025 Plan: Home Discharge Needs Assessment Row Name 01/26/25 1151 Living Environment People in Home alone Current Living Arrangements home Primary Care Provided by self Provides Primary Care For no one Family Caregiver if Needed child(lee), adult Quality of Family Relationships helpful;involved;supportive Able to Return to Prior Arrangements yes Transition Planning Patient/Family Anticipates Transition to home Patient/Family Anticipated Services at Transition briefcase sewerproduct support manager Anticipated family or friend will provide Discharge Needs Assessment Equipment Currently Used at Home cane, straight Discharge Plan Row Name 01/26/25 1156 Plan Plan Home Patient/Family in Agreement with Plan yes Plan Comments Met with Ms. Trejo and her son in her room, to initiate discharge planning. She lives alone in [facility]. She verified she has Medicare and [facility] insurance. Ms. Trejo uses [facility] to get her prescriptions filled. Her PCP is Hawk Davis MD. Prior toadmission, she was independent with ADLs. She uses a straight cane at times to assist with mobility, no other DME. She is not current with home health. Her goal is home at discharge. Family will transport. CM will continue to follow for medical readiness and will assist with any discharge needs as indicated. Final Discharge Disposition Code 01 - home or self-care Continued Care and Services - Admitted Since 01/24/2025 No active coordination exists. Expected Discharge Date and Time Expected Discharge Date Expected Discharge Time Jan 26, 2025 Demographic Summary Row Name 01/26/25 1150 General Information Admission Type observation Arrived From emergency department Referral Source admission list Reason for Consult discharge planning Preferred Language Ugandan Contact Information Permission Granted to Share Info With briefcase sewersocial work case manager Information Obtained for briefcase sewersocial work case manager Status Row Name 01/26/25 1150 Functional Status Usual Activity Tolerance moderate Current Activity Tolerance moderate Functional Status, IADL Medications independent Meal Preparation independent Housekeeping independent Laundry independent Shopping independent Psychosocial No documentation. Abuse/Neglect No documentation. Legal No documentation. Substance Abuse No documentation. Patient Forms No documentation. Lila Meza RN * Therapy Evaluation - Dudley Gardner MS CCC-DRYING EQUIPMENT OPERATOR - 01/24/2025 3:06 PM EST Images from the original note were not included. Acute Care - Speech Language Pathology Initial Evaluation Theresa Cognitive-Communication Evaluation Patient Name: Lucille Campuzano : 1940 Today's Date: 01/24/2025 Admit Date: 01/24/2025 Visit Dx: ICD-10-CM ICD-9-CM 1. 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 Hiatal hernia Hypercholesteremia Hypertension Hypokalemia Anemia PTSD (post-traumatic stress disorder) Multinodular goiter Lumbar neuralgia History of CVA with residual deficit Past Medical History: Diagnosis Date Anxiety Depression GI bleed Hyperlipidemia Hypertension Injury of back Past Surgical History: Procedure Laterality Date COLONOSCOPY N/A 12/22/2020 Procedure: COLONOSCOPY; Surgeon: Kenton Cedillo MD; Location: [facility]; Service: Gastroenterology; Laterality: N/A; ENDOSCOPY N/A 12/21/2020 Procedure: ESOPHAGOGASTRODUODENOSCOPY; Surgeon: Kenton Cedillo MD; Location: [facility]; Service: Gastroenterology; Laterality: N/A; ENDOSCOPY 12/22/2020 Procedure: ESOPHAGOGASTRODUODENOSCOPY WITH DEPLOYMENT OF PILL CAM FOR SMALL BOWEL ENTEROSCOPY; Surgeon: Kenton Cedillo MD; Location: [facility]; Service: Gastroenterology;; Replacement of 16 fr ng tube HYSTERECTOMY DRYING EQUIPMENT OPERATOR Recommendation and Plan Recommended discharge disposition is based on the functional assessment performed by PT/OT/Speech therapy (as applicable) and may not reflect the medical necessity determined by your provider or services covered by an individual patient's insurance plan or patient resource. DRYING EQUIPMENT OPERATOR Diagnosis: cognitive-linguistic disorder (01/24/251329) DRYING EQUIPMENT OPERATOR Diagnosis Comments: Pt is resistant to information. She does not acknowledge deficits and declines to participate in any further DRYING EQUIPMENT OPERATOR assessment. (01/24/251329) [facility] Criteria for Skilled Therapy Interventions Met: declined skilled intervention at this time (01/24/251329) Anticipated Discharge Disposition (DRYING EQUIPMENT OPERATOR): No further DRYING EQUIPMENT OPERATOR services warranted (01/24/251329) Progress: no change (01/24/25 1505) DRYING EQUIPMENT OPERATOR EVALUATION (Last 72 Hours) DRYING EQUIPMENT OPERATOR [facility] Evaluation Row Name 11/08/25 1330 Communication Assessment/Intervention Document Type evaluation -RS Subjective Information no complaints -RS Patient Observations agree to therapy;poorly cooperative -RS Patient/Family/Caregiver Comments/Observations son present -RS Patient Effort fair -RS Comment Pt states I hate therapy, my week at [facility] was the worst week of my life -RS Symptoms Noted During/After Treatment none -RS General Information Patient Profile Reviewed yes -RS Precautions/Limitations, Vision WFL with corrective lenses;for purposes of eval -RS Precautions/Limitations, Hearing WFL;for purposes of eval -RS Prior Level of Function-Communication other (see comments) son reports fluctuating cognition -RS Plans/Goals Discussed with patient and family;agreed upon -RS Barriers to Rehab resistant to information -RS Pain Pretreatment Pain Rating 0/10 - no pain -RS Posttreatment Pain Rating 0/10 - no pain -RS Comprehension Assessment/Intervention Comprehension Assessment/Intervention Auditory Comprehension;Reading Comprehension -RS Auditory Comprehension Assessment/Intervention Auditory Comprehension (Communication) unable/difficult to assess -RS Auditory Comprehension Communication, Comment pt declined assessment -RS Reading Comprehension Assessment/Intervention Reading Comprehension (Communication) unable/difficult to assess -RS Reading Comprehension, Comment pt declined assessment -RS Expression Assessment/Intervention Expression Assessment/Intervention verbal expression;graphic expression -RS Verbal Expression Assessment/Intervention Verbal Expression unable/difficult to assess -RS Verbal Expression, Comment pt declined assessment -RS Graphic Expression Assessment/Intervention Graphic Expression unable/difficult to assess -RS Graphic Expression, Comment pt declined assessment -RS Oral Motor Structure and Function Oral Motor Structure and Function WFL -RS Dentition Assessment natural, present and adequate -RS Mucosal Quality moist, healthy -RS Oral Musculature and Cranial Nerve Assessment Oral Motor General Assessment oral labial or buccal impairment -RS Oral Labial or Buccal Impairment, Detail, Cranial Nerve VII (Facial): left labial droop -RS Oral Motor, Comment pt and son report baseline L droop from 2020 CVA. -RS Motor Speech Assessment/Intervention Characteristics Consistent with Dysarthria decreased articulation -RS Motor Speech, Comment very mild baseline dysarthria though pt denies -RS Cognitive Assessment Intervention- DRYING EQUIPMENT OPERATOR Orientation Status (Cognition) person;place;time;WFL -RS Memory (Cognitive) simple;immediate;short-term;WFL -RS Attention (Cognitive) selective;sustained;mild impairment;moderate impairment -RS Thought Organization (Cognitive) concrete divergent;abstract divergent;mental manipulation;mild impairment;moderate impairment -RS Reasoning (Cognitive) simple;moderate impairment -RS Functional Math (Cognitive) WFL -RS Cognition, Comment Pt's son subjectively gauges pt's mentation at 75% normal and endorses that pt's cognition does fluctuate. Pt denies presence of any deficit. She appears to utilize intact and high level language/humor to compensate for deficits. She perseverates on bicycles having engines whenasked how a train and a bicycle are similar. Pt declines to answer further questions. Son verbalizes understanding that DRYING EQUIPMENT OPERATOR service is available if pt changes her mind. D/w RN. Nothing further for DRYING EQUIPMENT OPERATOR to offer given pt refusal of services. -RS DRYING EQUIPMENT OPERATOR Evaluation Clinical Impressions DRYING EQUIPMENT OPERATOR Diagnosis cognitive-linguistic disorder -RS DRYING EQUIPMENT OPERATOR Diagnosis Comments Pt is resistant to information. She does not acknowledge deficits and declines to participate in any further DRYING EQUIPMENT OPERATOR assessment. -RS SLC Criteria for Skilled Therapy Interventions Met declined skilled intervention at this time -RS Recommendations Anticipated Discharge Disposition (DRYING EQUIPMENT OPERATOR) No further DRYING EQUIPMENT OPERATOR services warranted -RS User Valencia (r) = Recorded By, (t) = Taken By, (c) = Cosigned By Initials Name Effective Dates RS Dudley Gardner MS CCC-DRYING EQUIPMENT OPERATOR 11/30/22 - EDUCATION The patient has been educated in the following areas: Cognitive Impairment. Time Calculation: Time Calculation- DRYING EQUIPMENT OPERATOR Row Name 01/24/25 1459 Time Calculation- DRYING EQUIPMENT OPERATOR DRYING EQUIPMENT OPERATOR Start Time 1330 -RS DRYING EQUIPMENT OPERATOR Received On 01/24/25 -RS Untimed Charges 64058-SE Eval Speech and Production w/ Language Minutes 39 -RS Total Minutes Untimed Charges Total Minutes 39 -RS Total Minutes 39 -RS User Valencia (r) = Recorded By, (t) = Taken By, (c) = Cosigned By Initials Name Provider Type RS Dudley Gardner MS CCC-DRYING EQUIPMENT OPERATOR Speech and Language Pathologist Therapy Charges for Today Code Description Service Date Service Provider Modifiers Qty [id number] HC ST EVAL SPEECH AND PROD W LANG 3 01/24/2025 Dudley Gardner MS CCC- DRYING EQUIPMENT OPERATOR GN 1 MS ETTA Samuel 01/24/2025 * Therapy Evaluation - Laney Riggins OT - 01/24/2025 10:45 AM EST Images from the original note were not included. Patient Name: Lucille Campuzano : 1940 Today's Date: 01/24/2025 Admit Date: 01/24/2025 Visit Dx: No diagnosis found. 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 Hiatal hernia Hypercholesteremia Hypertension Hypokalemia Anemia PTSD (post-traumatic stress disorder) Multinodular goiter Lumbar neuralgia History of CVA with residual deficit Past Medical History: Diagnosis Date Anxiety Depression GI bleed Hyperlipidemia Hypertension Injury of back Past Surgical History: Procedure Laterality Date COLONOSCOPY N/A 12/22/2020 Procedure: COLONOSCOPY; Surgeon: Kenton Cedillo MD; Location: [facility]; Service: Gastroenterology; Laterality: N/A; ENDOSCOPY N/A 12/21/2020 Procedure: ESOPHAGOGASTRODUODENOSCOPY; Surgeon: Kenton Cedillo MD; Location: [facility]; Service: Gastroenterology; Laterality: N/A; ENDOSCOPY 12/22/2020 Procedure: ESOPHAGOGASTRODUODENOSCOPY WITH DEPLOYMENT OF PILL CAM FOR SMALL BOWEL ENTEROSCOPY; Surgeon: Kenton Cedillo MD; Location: [facility]; Service: Gastroenterology;; Replacement of 16 fr ng tube HYSTERECTOMY General Information Row Name 01/24/25 1118 OT Time and Intention Document Type evaluation - Mode of Treatment occupational therapy;co-treatment - Row Name 01/24/25 1118 General Information Patient Profile Reviewed yes -AJ Prior Level of Function independent:;all household mobility;gait;bed mobility;ADL's;driving Ambulates with quad cane PRN, ind with ADLs, denies recent falls. -AJ Existing Precautions/Restrictions fall;other (see comments) Impulsive, hx of CVA w/L facial droop. -AJ Barriers to Rehab medically complex;previous functional deficit;cognitive status - Row Name 01/24/25 1118 Living Environment Current Living Arrangements home -AJ People in Home alone - Row Name 01/24/25 1118 Home Main Entrance Number of Stairs, Main Entrance two -AJ Stair Railings, Main Entrance railing on left side (ascending) - Row Name 01/24/25 1118 Stairs Within Home, Primary Number of Stairs, Within Home, Primary none - Row Name 01/24/25 111 Cognition Orientation Status (Cognition) oriented x 3 - Row Name 01/24/25 111 Safety Issues/Impairments Affecting Functional Mobility Safety Issues Affecting Function (Mobility) awareness of need for assistance;impulsivity;insight into deficits/self-awareness;judgment;problem-solving;safety precaution awareness;safety precautions follow-through/compliance;sequencing abilities - Impairments Affecting Function (Mobility) balance;cognition;endurance/activity tolerance;motor planning;strength - Cognitive Impairments, Mobility Safety/Performance attention;awareness, need for assistance;insightinto deficits/self-awareness;impulsivity;judgment;problem-solving/reasoning;safety precaution awareness;safety precaution follow-through;sequencing abilities - User Valencia (r) = Recorded By, (t) = Taken By, (c) = Cosigned By Initials Name Provider Type Laney Riggins, OT Occupational Therapist Mobility/ADL's Row Name 01/24/25 112 Bed Mobility Bed Mobility supine-sit;scooting/bridging - Scooting/Bridging Sabine (Bed Mobility) standby assist - Supine-Sit Sabine (Bed Mobility) standby assist;verbal cues - Assistive Device (Bed Mobility) bed rails;head of bed elevated - Row Name 01/24/251123 Transfers Transfers sit-stand transfer - Comment, (Transfers) No AD for transfers or mobility. Pt can be impulsive and requires cues at times for safety. - Row Name 01/24/25 112 Sit-Stand Transfer Sit-Stand Sabine (Transfers) contact guard;verbal cues - Row Name 01/24/25 112 Functional Mobility Functional Mobility- Ind. Level contact guard assist;verbal cues required - Functional Mobility-Distance (Feet) -- HH distance - Row Name 01/24/25 112 Activities of Daily Living BADL Assessment/Intervention lower body dressing;other (see comments) Pt already completed groomingfor the day. - Row Name 01/24/25 112 Lower Body Dressing Assessment/Training Sabine Level (Lower Body Dressing) don;doff;socks;set up - Position (Lower Body Dressing) edge of bed sitting - User Valencia (r) = Recorded By, (t) = Taken By, (c) = Cosigned By Initials Name Provider Type AJ Laney Riggins OT Occupational Therapist Obj/Interventions Row Name 01/24/25 1126 Sensory Assessment (Somatosensory) Sensory Assessment (Somatosensory) UE sensation intact - Row Name 01/24/25 1126 Vision Assessment/Intervention Visual Impairment/Limitations WFL - Vision Assessment Comment Able to track in all planes and peripheral vision is WFL. - Row Name 01/24/25 1126 Range of Motion Comprehensive General Range of Motion bilateral upper extremity ROM WFL - Row Name 01/24/25 1126 Strength Comprehensive (MMT) General Manual Muscle Testing (MMT) Assessment no strength deficits identified - Comment, General Manual Muscle Testing (MMT) Assessment BUE grossly 5/5 - Row Name 01/24/25 1126 Motor Skills Motor Skills coordination - Coordination fine motor deficit;left;upper extremity;minimal impairment - Row Name 01/24/25 1126 Balance Balance Assessment sitting static balance;sitting dynamic balance;sit to stand dynamic balance;standing static balance;standing dynamic balance - Static Sitting Balance standby assist - Dynamic Sitting Balance standby assist - Position, Sitting Balance unsupported;sitting edge of bed - Static Standing Balance contact guard - Dynamic Standing Balance contact guard;verbal cues - Position/Device Used, Standing Balance unsupported - Balance Interventions sitting;standing;sit to stand;supported;static;dynamic;occupation based/functional task - User Valencia (r) = Recorded By, (t) = Taken By, (c) = Cosigned By Initials Name Provider Type Laney Riggins OT Occupational Therapist Goals/Plan Row Name 01/24/25 1132 Transfer Goal 1 (OT) Activity/Assistive Device (Transfer Goal 1, OT) cls-xs-tdyjl/yqqkl-fk-iyb;hag-ly-rvknr/gzjvw-ha-ake;toilet - Sabine Level/Cues Needed (Transfer Goal 1, OT) standby assist - Time Frame (Transfer Goal 1, OT) chcf goal (LTG);10 days - Strategies/Barriers (Transfers Goal 1, OT) Demonstrating improved safety awareness/follow-through. - Progress/Outcome (Transfer Goal 1, OT) new goal - Row Name 01/24/25 1132 Toileting Goal 1 (OT) Activity/Device (Toileting Goal 1, OT) adjust/manage clothing;perform perineal hygiene -AJ Sabine Level/Cues Needed (Toileting Goal 1, OT) contact guard required -AJ Time Frame (Toileting Goal 1, OT) short term goal (STG);5 days -AJ Progress/Outcome (Toileting Goal 1, OT) new goal -AJ Row Name 01/24/25 1132 Grooming Goal 1 (OT) Activity/Device (Grooming Goal 1, OT) oral care;wash face, hands -AJ Sabine (Grooming Goal 1, OT) standby assist -AJ Time Frame (Grooming Goal 1, OT) tank terminal gauger goal (LTG);10 days -AJ Strategies/Barriers (Grooming Goal 1, OT) Emphasis on sequencing/attention to task -AJ Progress/Outcome (Grooming Goal 1, OT) new goal - Row Name 01/24/25 1132 Therapy Assessment/Plan (OT) Planned Therapy Interventions (OT) activity tolerance training;adaptive equipment training;BADL retraining;functional balance retraining;IADL retraining;occupation/activity based interventions;passive ROM/stretching;patient/caregiver education/training;ROM/therapeutic exercise;strengthening exercise;transfer/mobility retraining -AJ User Valencia (r) = Recorded By, (t) = Taken By, (c) = Cosigned By Initials Name Provider Type Laney Sauer, OT Occupational Therapist Clinical Impression Row Name 01/24/25 1127 Pain Assessment Pretreatment Pain Rating 6/10 -AJ Posttreatment Pain Rating 6/10 -AJ Pain Location back -AJ Pain Side/Orientation generalized -AJ Pain Management Interventions activity modification encouraged;exercise or physical activity utilized;positioning techniques utilized -AJ Response to Pain Interventions activity participation with tolerable pain -AJ Pre/Posttreatment Pain Comment Chronic back pain - Row Name 01/24/25 1127 Plan of Care Review Plan of Care Reviewed With patient -AJ Progress no change -AJ Outcome Evaluation OT eval complete. Pt presents below fxl baseline, limited by cognitive impairments that decrease safety awareness and processing, mild balance deficits, and decreased activity tolerance. Pt demonstrated difficulty with processing/problem solving during ambulation and functional assessments, requiring repeated and frequent cues for safety and to remain on task. Pt would benefit from ongoing skilled OT services to progress to PLOF. Rec d/c to home with 09/10 assist and OT/PT services. -AJ Row Name 01/24/25 1127 Therapy Assessment/Plan (OT) Patient/Family Therapy Goal Statement (OT) Return to PLOF -AJ Rehab Potential (OT) good -AJ Criteria for Skilled Therapeutic Interventions Met (OT) yes;meets criteria;skilled treatment is necessary - Row Name 01/24/25 1127 Therapy Plan Review/Discharge Plan (OT) Anticipated Discharge Disposition (OT) home with 24/7 care;home with home health - Row Name 01/24/25 1127 Vital Signs Pre Systolic BP Rehab 147 -AJ Pre Treatment Diastolic BP 84 -AJ Post Systolic BP Rehab 141 -AJ Post Treatment Diastolic BP 86 -AJ Pretreatment Heart Rate (beats/min) 81 -AJ Pre SpO2 (%) 94 -AJ O2 Delivery Pre Treatment room air -AJ O2 Delivery Post Treatment room air -AJ Pre Patient Position Supine -AJ Intra Patient Position Standing -AJ Post Patient Position Sitting - Row Name 01/24/25 1127 Positioning and Restraints Pre-Treatment Position in bed -AJ Post Treatment Position chair -AJ In Chair notified nsg;reclined;sitting;call light within reach;encouraged to call for assist;exit alarm on;legs elevated;waffle cushion;heels elevated;with other staff - User Valencia (r) = Recorded By, (t) = Taken By, (c) = Cosigned By Initials Name Provider Type Laney Sauer, RAMIRO Occupational Therapist Outcome Measures Row Name 01/24/25 1133 How much help from another is currently needed... Putting on and taking off regular lower body clothing? 4 -AJ Bathing (including washing, rinsing, and drying) 3 -AJ Toileting (which includes using toilet bed shaver or urinal) 3 -AJ Putting on and taking off regular upper body clothing 3 -AJ Taking care of personal grooming (such as brushing teeth) 3 -AJ Eating meals 4 -AJ AM-PAC 6 Clicks Score (OT) 20 - Row Name 01/24/25 0745 01/24/25 0400 How much help from another person do you currently need... Turning from your back to your side while in flat bed without using bedrails? 4 -SL 3 -SM Moving from lying on back to sitting on the side of a flat bed without bedrails? 4 -SL 3 -SM Moving to and from a bed to a chair (including a wheelchair)? 4 -SL 3 -SM Standing up from a chair using your arms (e.g., wheelchair, bedside chair)? 4 - SL 3 -SM Climbing 3-5 steps with a railing? 3 -SL 3 -SM To walk in hospital room? 4 -SL 3 -SM AM-PAC 6 Clicks Score (PT) 23 -SL 18 -SM Row Name 01/24/25 0300 How much help from another person do you currently need... Turning from your back to your side while in flat bed without using bedrails? 4 -SP Moving from lying on back to sitting on the side of a flat bed without bedrails? 4 -SP Moving to and from a bed to a chair (including a wheelchair)? 4 -SP Standing up from a chair using your arms (e.g., wheelchair, bedside chair)? 4 -SP Climbing 3-5 steps with a railing? 4 -SP To walk in hospital room? 4 -SP AM-PAC 6 Clicks Score (PT) 24 -SP Row Name 01/24/25 1133 Modified Jake Scale Pre-Stroke Modified Bastrop Scale 6 - Unable to determine (UTD) from the medical record documentation - Modified Bastrop Scale 3 - Moderate disability. Requiring some help, but able to walk without assistance. - Row Name 01/24/25 1133 Functional Assessment Outcome Measure Options AM-PAC 6 Clicks Daily Activity (OT);Modified Bastrop - User Valencia (r) = Recorded By, (t) = Taken By, (c) = Cosigned By Initials Name Provider Type Hawk Treviño, TRACI Registered Nurse Laney Sauer OT Occupational Therapist Maisha Kim, TRACI Registered Nurse Sandhya Dumont RN Registered Nurse Occupational Therapy Education Title: PT OT DRYING EQUIPMENT OPERATOR Therapies (In Progress) Topic: Occupational Therapy (In Progress) Point: ADL training (In Progress) Learning Progress Summary Patient Acceptance, E,D, NR by at 01/24/2025 1134 Point: Precautions (In Progress) Learning Progress Summary Patient Acceptance, E,D, NR by at 01/24/2025 1134 Point: Body mechanics (In Progress) Learning Progress Summary Patient Acceptance, E,D, NR by at 01/24/2025 1134 User Valencia Initials Effective Dates Name Provider Type Discipline 11/12/23 - Laney Riggins OT Occupational Therapist OT OT Recommendation and Plan Recommended discharge disposition is based on the functional assessment performed by PT/OT/Speech therapy (as applicable) and may not reflect the medical necessity determined by your provider or services covered by an individual patient's insurance plan or patient resource. Planned Therapy Interventions (OT): activity tolerance training, adaptive equipment training, BADL retraining, functional balance retraining, IADL retraining, occupation/activity based interventions,passive ROM/stretching, patient/caregiver education/training, ROM/therapeutic exercise, strengthening exercise, transfer/mobility retraining Plan of Care Review Plan of Care Reviewed With: patient Progress: no change Outcome Evaluation: OT eval complete. Pt presents below fxl baseline, limited by cognitive impairments that decrease safety awareness and processing, mild balance deficits, and decreased activity tolerance. Pt demonstrated difficulty with processing/problem solving during ambulation and functional assessments, requiring repeated and frequent cues for safety and to remain on task. Pt would benefitfrom ongoing skilled OT services to progress to PLOF. Rec d/c to home with 09/10 assist and OT/PTservices. Time Calculation: Evaluation Complexity (OT) Review Occupational Profile/Medical/Therapy History Complexity: brief/low complexity Assessment, Occupational Performance/Identification of Deficit Complexity: 1-3 performance deficits Clinical Decision Making Complexity (OT): problem focused assessment/low complexity Overall Complexity of Evaluation (OT): low complexity Time Calculation- OT Row Name 01/24/25 1135 Time Calculation- OT OT Start Time 1045 -AJ OT Received On 01/24/25 -AJ OT Goal Re-Cert Due Date 02/03/25 - Untimed Charges OT Eval/Re-eval Minutes 50 -AJ Total Minutes Untimed Charges Total Minutes 50 -AJ Total Minutes 50 -AJ User Valencia (r) = Recorded By, (t) = Taken By, (c) = Cosigned By Initials Name Provider Type Laney Riggins OT Occupational Therapist Therapy Charges for Today Code Description Service Date Service Provider Modifiers Qty [id number] OT EVAL LOW COMPLEXITY 4 01/24/2025 Laney Riggins OT GO 1 Laney Riggins OT 01/24/2025 * Therapy Evaluation - Hailey Acuna, PT - 01/24/2025 10:40 AM EST Images from the original note were not included. Patient Name: Lucille Campuzano : 1940 Today's Date: 01/24/2025 Admit Date: 01/24/2025 Visit Dx: No diagnosis found. 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 Hiatal hernia Hypercholesteremia Hypertension Hypokalemia Anemia PTSD (post-traumatic stress disorder) Multinodular goiter Lumbar neuralgia History of CVA with residual deficit Past Medical History: Diagnosis Date Anxiety Depression GI bleed Hyperlipidemia Hypertension Injury of back Past Surgical History: Procedure Laterality Date COLONOSCOPY N/A 12/22/2020 Procedure: COLONOSCOPY; Surgeon: Kenton Cedillo MD; Location: [facility]; Service: Gastroenterology; Laterality: N/A; ENDOSCOPY N/A 12/21/2020 Procedure: ESOPHAGOGASTRODUODENOSCOPY; Surgeon: Kenton Cedillo MD; Location: [facility]; Service: Gastroenterology; Laterality: N/A; ENDOSCOPY 12/22/2020 Procedure: ESOPHAGOGASTRODUODENOSCOPY WITH DEPLOYMENT OF PILL CAM FOR SMALL BOWEL ENTEROSCOPY; Surgeon: Kenton Cedillo MD; Location: [facility]; Service: Gastroenterology;; Replacement of 16 fr ng tube HYSTERECTOMY General Information Row Name 01/24/25 1040 Physical Therapy Time and Intention Document Type evaluation -NS Mode of Treatment co-treatment;physical therapy -NS Row Name 01/24/25 1040 General Information Patient Profile Reviewed yes -NS Prior Level of Function independent:;all household mobility;gait;transfer;bed mobility;ADL's;driving pt uses a QC PRN, reports no falls -NS Existing Precautions/Restrictions fall;other (see comments) impulsive, hx of CVA with residual L facial droop -NS Barriers to Rehab medically complex;previous functional deficit;cognitive status -NS Row Name 01/24/25 1040 Living Environment Current Living Arrangements home -NS People in Home alone -NS Row Name 01/24/25 1040 Home Main Entrance Number of Stairs, Main Entrance two -NS Stair Railings, Main Entrance railing on left side (ascending) -NS [facility] Name 01/24/25 1040 Stairs Within Home, Primary Number of Stairs, Within Home, Primary none -NS [facility] Name 01/24/25 1040 Cognition Orientation Status (Cognition) oriented x 3 some situational confusion -NS [facility] Name 01/24/25 1040 Safety Issues/Impairments Affecting Functional Mobility Safety Issues Affecting Function (Mobility) safety precaution awareness;safety precautions follow-through/compliance;sequencing abilities;insight into deficits/self-awareness;judgment;problem-solving;ability to follow commands;awareness of need for assistance -NS Impairments Affecting Function (Mobility) balance;cognition;coordination;endurance/activity tolerance;motor planning;strength;pain;postural/trunk control -NS Cognitive Impairments, Mobility Safety/Performance problem- solving/reasoning;safety precaution awareness;safety precaution follow- through;sequencing abilities;judgment;attention;awareness, need for as sistance;impulsivity;insight into deficits/self-awareness -NS User Valencia (r) = Recorded By, (t) = Taken By, (c) = Cosigned By Initials Name Provider Type NS Hailey Acuna PT Physical Therapist Mobility [facility] Name 01/24/25 1040 Bed Mobility Bed Mobility supine-sit -NS Supine-Sit Sab[place] (Bed Mobility) standby assist -NS Assistive Device (Bed Mobility) bed rails;head of bed elevated -NS [facility] 01/24/25 1040 Transfers Comment, (Transfers) impulsive with mobility, cues for safety with lines -NS [facility] 01/24/25 1040 Sit-Stand Transfer Sit-Stand Sabine (Transfers) contact guard;verbal cues -[facility] 01/24/25 1040 Gait/Stairs (Locomotion) Sabine Level (Gait) contact guard -NS Patient was able to Ambulate yes -NS Distance in Feet (Gait) 280 -NS Deviations/Abnormal Patterns (Gait) roxanne decreased;gait speed decreased;base of support, narrow -NS Bilateral Gait Deviations heel strike decreased -NS Comment, (Gait/Stairs) Patient ambulated at slow pace, demonstrating tendency to reach for R rail for balance but able to maintain balance without rail. Difficulty orientating to L and R when given task, with decreased processing noted. Mildly increased unsteadiness with head turns. Decreased safety awareness. -NS User Valencia (r) = Recorded By, (t) = Taken By, (c) = Cosigned By Initials Name Provider Type Hailey Li PT Physical Therapist Obj/Interventions Row Name 01/24/25 1040 Range of Motion Comprehensive General Range of Motion bilateral lower extremity ROM WFL -NS [facility] Name 01/24/25 1040 Strength Comprehensive (MMT) General Manual Muscle Testing (MMT) Assessment lower extremity strength deficits identified -NS Comment, General Manual Muscle Testing (MMT) Assessment B ankle DF: 5/5, B knee ext: 5/5, B hip flexion: 4/5 -NS Row Name 01/24/25 1040 Balance Balance Assessment sitting static balance;sitting dynamic balance;standing static balance;standing dynamic balance -NS Static Sitting Balance standby assist -NS Dynamic Sitting Balance standby assist -NS Position, Sitting Balance unsupported;sitting edge of bed -NS Static Standing Balance contact guard -NS Dynamic Standing Balance contact guard -NS Position/Device Used, Standing Balance unsupported -NS Row Name 01/24/25 1040 Sensory Assessment (Somatosensory) Sensory Assessment (Somatosensory) LE sensation intact -NS User Valencia (r) = Recorded By, (t) = Taken By, (c) = Cosigned By Initials Name Provider Type Hailey Li PT Physical Therapist Goals/Plan Row Name 01/24/25 1040 Bed Mobility Goal 1 (PT) Activity/Assistive Device (Bed Mobility Goal 1, PT) supine to sit -NS [place] Level/Cues Needed (Bed Mobility Goal 1, PT) independent -NS Time Frame (Bed Mobility Goal 1, PT) short term goal (STG);5 days -NS [facility] Name 01/24/25 1040 Transfer Goal 1 (PT) Activity/Assistive Device (Transfer Goal 1, PT) pja-sl-fatui/pcnzg-pk-ikj;edp-sd-nyyln/dyzur-kh-ura-NS [place] Level/Cues Needed (Transfer Goal 1, PT) standby assist -NS Time Frame (Transfer Goal 1, PT) tank terminal gauger goal (LTG);10 days -NS Row Name 01/24/25 1040 Gait Training Goal 1 (PT) Activity/Assistive Device (Gait Training Goal 1, PT) gait (walking locomotion) -NS [place] Level (Gait Training Goal 1, PT) standby assist -NS Distance (Gait Training Goal 1, PT) 400 -NS Time Frame (Gait Training Goal 1, PT) chcf goal (LTG);10 days -NS Row Name 01/24/25 1040 Stairs Goal 1 (PT) Activity/Assistive Device (Stairs Goal 1, PT) ascending stairs;descending stairs -NS [place] Level/Cues Needed (Stairs Goal 1, PT) standby assist -NS Number of Stairs (Stairs Goal 1, PT) 2 -NS Time Frame (Stairs Goal 1, PT) tank terminal gauger goal (LTG);10 days -NS Row Name 01/24/25 1040 Therapy Assessment/Plan (PT) Planned Therapy Interventions (PT) balance training;bed mobility training;gait training;home exercise program;neuromuscular re- education;strengthening;patient/family education;transfer training -NS User Valencia (r) = Recorded By, (t) = Taken By, (c) = Cosigned By Initials Name Provider Type Hailey Li, PT Physical Therapist Clinical Impression Row Name 01/24/25 1040 Pain Pretreatment Pain Rating 6/10 -NS Posttreatment Pain Rating 6/10 -NS Pain Location back -NS Pain Side/Orientation generalized -NS Pain Management Interventions positioning techniques utilized;exercise or physical activity utilized -NS Response to Pain Interventions activity participation with tolerable pain -NS Row Name 01/24/25 1040 Plan of Care Review Plan of Care Reviewed With patient -NS Progress no change -NS Outcome Evaluation Patient presents with weakness, decreased balance, and cognitive deficits affecting functional mobility. Note some difficulty with following commands and processing, with challenges orienting to objects to L and R in hallway and decreased safety awareness. IP PT services warranted to support return to baseline. Recommend patient returns home with 24/7 supervision for safety andHHPT at discharge. -NS Row Name 01/24/25 1040 Therapy Assessment/Plan (PT) Patient/Family Therapy Goals Statement (PT) to go home -NS Rehab Potential (PT) good -NS Criteria for Skilled Interventions Met (PT) yes;meets criteria;skilled treatment is necessary -NS Therapy Frequency (PT) daily -NS Predicted Duration of Therapy Intervention (PT) 10 days -NS Row Name 01/24/25 1040 Vital Signs Pre Systolic BP Rehab 147 -NS Pre Treatment Diastolic BP 84 -NS Post Systolic BP Rehab 141 -NS Post Treatment Diastolic BP 72 -NS Pretreatment Heart Rate (beats/min) 84 -NS Posttreatment Heart Rate (beats/min) 87 -NS Pre SpO2 (%) 97 -NS O2 Delivery Pre Treatment room air -NS Post SpO2 (%) 97 -NS O2 Delivery Post Treatment room air -NS Pre Patient Position Supine -NS Intra Patient Position Standing -NS Post Patient Position Sitting -NS Row Name 01/24/25 1040 Positioning and Restraints Pre-Treatment Position in bed -NS Post Treatment Position chair -NS In Chair notified nsg;reclined;call light within reach;encouraged to call for assist;exit alarm on;waffle cushion;legs elevated;with other staff -NS User Valencia (r) = Recorded By, (t) = Taken By, (c) = Cosigned By Initials Name Provider Type Hailey Li, MARIA C Physical Therapist Outcome Measures Row Name 01/24/25 1040 01/24/25 0745 How much help from another person do you currently need... Turning from your back to your side while in flat bed without using bedrails? 4 -NS 4 -SL Moving from lying on back to sitting on the side of a flat bed without bedrails? 3 -NS 4 -SL Moving to and from a bed to a chair (including a wheelchair)? 3 -NS 4 -SL Standing up from a chair using your arms (e.g., wheelchair, bedside chair)? 3 - NS 4 -SL Climbing 3-5 steps with a railing? 3 -NS 3 -SL To walk in hospital room? 3 -NS 4 -SL AM-PAC 6 Clicks Score (PT) 19 -NS 23 -SL Highest Level of Mobility Goal Walk 10 Steps or More-6 -NS Walk 25 Feet or More- 7 -SL Row Name 01/24/25 0400 01/24/25 0300 How much help from another person do you currently need... Turning from your back to your side while in flat bed without using bedrails? 3 -SM 4 -SP Moving from lying on back to sitting on the side of a flat bed without bedrails? 3 -SM 4 -SP Moving to and from a bed to a chair (including a wheelchair)? 3 -SM 4 -SP Standing up from a chair using your arms (e.g., wheelchair, bedside chair)? 3 - SM 4 -SP Climbing 3-5 steps with a railing? 3 -SM 4 -SP To walk in hospital room? 3 -SM 4 -SP AM-PAC 6 Clicks Score (PT) 18 -SM 24 -SP Highest Level of Mobility Goal Walk 10 Steps or More-6 -SM Walk 250 Feet or More - 8 -SP Row Name 01/24/25 1133 01/24/25 1040 Modified Jake Scale Pre-Stroke Modified [place] Scale 6 - Unable to determine (UTD) from the medical record documentation -AJ 6 - Unable to determine (UTD) from the medical record documentation -NS Modified [place] Scale 3 - Moderate disability. Requiring some help, but able to walk without assistance. -AJ 3 - Moderate disability. Requiring some help, but able to walk without assistance. 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 Point: Body mechanics (In Progress) Learning Progress Summary Patient Acceptance, E, NR by LOLITA at 01/24/2025 1204 Point: Precautions (In Progress) Learning Progress Summary Patient Acceptance, E, NR by LOLITA at 01/24/2025 1204 User Valencia Initials Effective Dates Name Provider Type Discipline LOLITA 09/01/20 - Hailey Acuna PT Physical Therapist PT PT Recommendation and Plan Recommended discharge disposition is based on the functional assessment performed by PT/OT/Speech therapy (as applicable) and may not reflect the medical necessity determined by your provider or services covered by an individual patient's insurance plan or patient resource. Planned Therapy Interventions (PT): balance training, bed mobility training, gait training, home exercise program, neuromuscular re-education, strengthening, patient/family education, transfer training Therapy Frequency (PT): daily Progress: no change Outcome Evaluation: Patient presents with weakness, decreased balance, and cognitive deficits affecting functional mobility. Note some difficulty with following commands and processing, with challenges orienting to objects to L and R in hallway and decreased safety awareness. IP PT services warranted to support return to baseline. Recommend patient returns home with 24/7 supervision for safety and HHPT at discharge. Time Calculation: PT Evaluation Complexity History, PT Evaluation Complexity: 3 or more personal factors and/or comorbidities Examination of Body Systems (PT Eval Complexity): total of 4 or more elements Clinical Presentation (PT Evaluation Complexity): evolving Clinical Decision Making (PT Evaluation Complexity): moderate complexity Overall Complexity (PT Evaluation Complexity): moderate complexity PT Charges Row Name 01/24/25 1040 Time Calculation Start Time 1040 -NS PT Received On 01/24/25 -NS PT Goal Re-Cert Due Date 02/03/25 -NS Untimed Charges PT Eval/Re-eval Minutes 51 -NS Total Minutes Untimed Charges Total Minutes 51 -NS Total Minutes 51 -NS User Valencia (r) = Recorded By, (t) = Taken By, (c) = Cosigned By Initials Name Provider Type NS Hailey Acuna, PT Physical Therapist Therapy Charges for Today Code Description Service Date Service Provider Modifiers Qty [id number] HC PT EVAL MOD COMPLEXITY 4 01/24/2025 Hailey Acuna, PT GP 1 PT G-Codes Outcome Measure Options: AM-PAC 6 Clicks Daily Activity (OT), Modified [place] AM-PAC 6 Clicks Score (PT): 19 AM-PAC 6 Clicks Score (OT): 20 Modified [place] Scale: 3 - Moderate disability. Requiring some help, but able to walk without assistance. PT Discharge Summary Anticipated Discharge Disposition (PT): home with 24/7 care, home with home health Hailey Acuna PT 01/24/2025 documented in this encounter Plan of Treatment Scheduled Referrals Name Type Priority Associated Diagnoses Order Schedule Ambulatory Referral to Neurology Outpatient Referral Routine Memory deficit Ordered: 01/26/2025 documented as of this encounter Procedures Procedure Name Priority Date/Time Associated Diagnosis Comments MRI BRAIN WO CONTRAST Routine 01/26/2025 2:00 AM EST HEMOGLOBIN A1C Urgent 01/25/2025 10:45 AM EST LIPID PANEL Urgent 01/25/2025 10:45 AM EST ECHO COMPLETE W/ DOPPLER AND COLOR FLOW Routine 01/24/2025 4:48 PM EST POCT GLUCOSE FINGERSTICK Routine 01/24/2025 4:36 PM EST POCT GLUCOSE FINGERSTICK Routine 01/24/2025 11:56 AM EST URINALYSIS, MICROSCOPIC ONLY Routine 01/24/2025 9:54 AM EST URINALYSIS W/ CULTURE IF INDICATED Routine 01/24/2025 9:54 AM EST URINE CULTURE Routine 01/24/2025 9:54 AM EST RESPIRATORY PANEL PCR W/ COVID-19 (SARS-COV-2), ASSET PROTECTION REPRESENTATIVE SWAB IN UTM/VTP, 2 HR TAT Routine 01/24/2025 8:51 AM EST POCT GLUCOSE FINGERSTICK Routine 01/24/2025 7:39 AM EST SCANNED - TELEMETRY 01/24/2025 7 :33 AM EST TSH Routine 01/24/2025 6:17 AM EST MAGNESIUM Routine 01/24/2025 6:17 AM EST COMPREHENSIVE METABOLIC PANEL Routine 01/24/2025 6:17 AM EST CBC (NO DIFF) Routine 01/24/2025 6:16 AM EST ECG 12-LEAD Routine 01/24/2025 6:07 AM EST documented in this encounter Results * MRI Brain Without Contrast (01/26/2025 2:00 AM EST) Anatomical Region Laterality Modality Head, Neck N/A Magnetic Resonan ce 01/26/2025 2:27 AM EST Impressions 01/26/2025 2:35 AM EST 1.Equivocal punctate focus of restricted diffusion in the left medial inferior cerebellum. This could reflect artifact due to its small size. The diffusion series is otherwise negative. 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 3.Generalized atrophy, particularly bifrontal. 4.Chronic small vessel ischemic disease, progressively worsened from prior. Electronically Signed: Christian Cazares MD 01/26/2025 2:35 AM EST Workstation ID: [id number] Narrative 01/26/2025 2:35 AM EST MRI BRAIN WO CONTRAST Date of Exam: 01/26/2025 1:52 AM EST Indication: Stroke, follow up Slurred speech. Comparison: 12/20/2020 Technique: Routine multiplanar/multisequence sequence images of the brain were obtained without contrast administration. Findings: The diffusion series shows an equivocal punctate focus of restricted diffusion in the left medial inferior cerebellum. This could reflect artifact due to its small size. The diffusion series is otherwise negative. Again seen is generalized atrophy, particularly bifrontal. Ventricular size and configuration are within normal limits. There is an old right posterior frontal infarct with gliosis. There is some associated chronic hemosiderin deposition. Scattered T2 hyperintensities are again seen in the periventricular and subcortical white matter, progressively worsened from prior, and most compatible with chronic small vessel ischemic disease. No acute hemorrhage is seen. There are no masses allowing for the lack of contrast. Craniocervical junction is normal. Pituitary gland is unremarkable. Major intracranial flow voids are maintained. Procedure Note Christian Cazares MD - 01/26/2025 MRI BRAIN WO CONTRAST Date of Exam: 01/26/2025 1:52 AM EST Indication: Stroke, follow up Slurred speech. Comparison: 12/20/2020 Technique: Routine multiplanar/multisequence sequence images of the brainwere obtained without contrast administration. Findings: The diffusion series shows an equivocal punctate focus of restricteddiffusion in the left medial inferior cerebellum. This could reflectartifact due to its small size. The diffusion series is otherwisenegative. Again seen is generalized atrophy, particularly bifrontal. Ventricular size and configuration are withinnormal limits. There is an old right posterior frontal infarct withgliosis. There is some associated chronic hemosiderin deposition.Scattered T2 hyperintensities are again seen in the periventricular and subcortical white matter, progressively worsenedfrom prior, and most compatible with chronic small vessel ischemicdisease. No acute hemorrhage is seen. There are no masses allowing for thelack of contrast. Craniocervical junction is normal. Pituitary gland is unremarkable. Major intracranialflow voids are maintained. IMPRESSION: 1.Equivocal punctate focus of restricted diffusion in the left medialinferior cerebellum. This could reflect artifact due to its small size.The diffusion series is otherwise negative. 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 3.Generalized atrophy, particularly bifrontal. 4.Chronic small vessel ischemic disease, progressively worsened fromprior. Electronically Signed: Christian Cazares MD 01/26/2025 2:35 AM EST Workstation ID: [id number] Kristina Whaley BULK PIGMENT REDUCER IM MRI ORDERABLES Final Result * Lipid Panel (01/25/2025 10:45 AM EST) Total Cholesterol 132 0 - 200 mg/dL 01/25/2025 11:24 AM EST [facility] Triglycerides 64 0 - 150 mg/dL 01/25/2025 11:24 AM EST [facility] HDL Cholesterol 60 40 - 60 mg/dL 01/25/2025 11:24 AM EST [facility] LDL Cholesterol 59 0 - 100 mg/dL 01/25/2025 11:24 AM EST [facility] VLDL Cholesterol 13 5 - 40 mg/dL 01/25/2025 11:24 AM EST [facility] LDL/HDL Ratio 0.99 01/25/2025 11:24 AM EST [facility] Blood Venipuncture / Unknown 01/25/2025 10:45 AM EST 01/25/2025 10:54 AM EST [facility] - 01/25/2025 11:24 AM EST Cholesterol Reference Ranges (U.S. Department of Health and Human Services ATP III Classifications) Desirable <200 mg/dL Borderline High 200-239 mg/dL High Risk >240 mg/dL Triglyceride Reference Ranges (U.S. Department of Health and Human Services ATP III Classifications) Normal <150 mg/dL Borderline High 150-199 mg/dL High 200-499 mg/dL Very High >500 mg/dL HDL Reference Ranges (U.S. Department of Health and Human Services ATP III Classifications) Low <40 mg/dl (major risk factor for CHD) High >60 mg/dl ('negative' risk factor for CHD) LDL Reference Ranges (U.S. Department of Health and Human Services ATP III Classifications) Optimal <100 mg/dL Near Optimal 100-129 mg/dL Borderline High 130-159 mg/dL High 160-189 mg/dL Very High >189 mg/dL LDL is calculated using the NIH LDL-C calculation. Kristina Whaley APRN LAB BLOOD ORDERABLES Fin al Result Performing Organization Address City/[facility] Co de Phone Number [facility]
[address] [place] [address], * (ABNORMAL) Hemoglobin A1c (01/25/2025 10:45 AM EST) Hemoglobin A1C 5.76(H) 4.80 - 5.60 % 01/25/2025 11:23 AM EST [facility] Blood Venipuncture / Unknown 01/25/2025 10:45 AM EST 01/25/2025 10:54 AM EST Narrative [facility] - 01/25/2025 11:23 AM EST Hemoglobin A1C Ranges: Increased Risk for Diabetes 5.7% to 6.4% Diabetes >= 6.5% Diabetic Goal < 7.0% Kristina Whaley BULK PIGMENT REDUCER LAB BLOOD ORDERABLES Fin al Result Performing Organization Address City/[facility]/ZIP Co de Phone Number [facility]
[address] [place] [address], * ECHO COMPLETE W/ DOPPLER AND COLOR FLOW (01/24/2025 4:48 PM EST) EF(MOD-bp) 61.1 % LVIDd 4.2 cm LVIDs 2.9 cm IVSd 1.00 cm LVPWd 0.60 cm FS 31.0 % IVS/LVPW 1.67 cm ESV(cubed) 24.4 ml LV Sys Vol (BSA corrected) 12.5 cm2 EDV(cubed) 74.1 ml LV Shelley Vol (BSA corrected) 37.8 cm2 LV mass(C)d 101.3 grams LVOT area 3.5 cm2 LVOT diam 2.10 cm EDV(MOD-sp2) 73.3 ml EDV(MOD-sp4) 69.6 ml ESV(MOD-sp2) 34.5 ml ESV(MOD-sp4) 23.0 ml SV(MOD-sp2) 38.8 ml SV(MOD-sp4) 46.6 ml SVi(MOD-SP2) 21.1 ml/m2 SVi(MOD-SP4) 25.3 ml/m2 SVi (LVOT) 42.3 ml/m2 EF(MOD-sp2) 52.9 % EF(MOD-sp4) 67.0 % MV E max ralph 58.7 cm/sec MV A max ralph 119.0 cm/sec MV dec time 0.06 sec MV E/A 0.49 IVRT 123.0 ms Med Peak E' Ralph 5.9 cm/sec Lat Peak E' Ralph 11.0 cm/sec TR max ralph 225.0 cm/sec Avg E/e' ratio 6.95 SV(LVOT) 77.9 ml RV Base 2.8 cm RV Mid 1.70 cm RV Length 5.5 cm TAPSE (>1.6) 2.13 cm RV S' 13.4 cm/sec LA dimension (2D) 3.8 cm LV V1 max 105.0 cm/sec LV V1 max PG 4.4 mmHg LV V1 mean PG 2.00 mmHg LV V1 VTI 22.5 cm Ao pk ralph 171.0 cm/sec Ao max PG 11.7 mmHg Ao mean PG 7.0 mmHg Ao V2 VTI 35.6 cm LUCIA(I,D) 2.19 cm2 Dimensionless Index 0.63 (DI) AI P1/2t 293.0 msec MV max PG 7.6 mmHg MV mean PG 4.0 mmHg MV V2 VTI 21.6 cm MVA(VTI) 3.6 cm2 MV dec slope 958.0 cm/sec2 TR max PG 20.3 mmHg PA V2 max 87.0 cm/sec PA acc time 0.15 sec Ao root diam 2.8 cm RVSP(TR) 23 mmHg RAP systole 3 mmHg Echo EF Estimated 70.0 % Anatomical Region Laterality Modality Ultrasound Narrative 01/24/2025 8:03 PM EST Left ventricular systolic function is normal. Estimated left ventricular EF = 70% Left ventricular diastolic function is consistent with (grade I) impaired relaxation. There is mild calcification of the aortic valve. There is no significant aortic valve stenosis or regurgitation present. Estimated right ventricular systolic pressure from tricuspid regurgitation is normal (<35 mmHg). Left Ventricle Left ventricular systolic function is normal. Estimated left ventricular EF = 70% Normal left ventricular cavity size and wall thickness noted. All left ventricular wall segments contract normally. Left ventricular diastolic function is consistent with (grade I) impaired relaxation. Right Ventricle Normal right ventricular cavity size, wall thickness, systolic function and septal motion noted. Left Atrium Normal left atrial size and volume noted. Right Atrium Normal right atrial cavity size noted. Mitral Valve The mitral valve is grossly normal in structure. Trace to mild mitral valve regurgitation is present. Tricuspid Valve Estimated right ventricular systolic pressure from tricuspid regurgitation is normal (<35 mmHg). Calculated right ventricular systolic pressure from tricuspid regurgitation is 23 mmHg. Aortic Valve The aortic valve is abnormal in structure. There is mild calcification of the aortic valve. Trace aortic valve regurgitation is present. No hemodynamically significant aortic valve stenosis is present. Pulmonic Valve The pulmonic valve is structurally normal with no regurgitation or significant stenosis present. Pericardium The pericardium is normal. There is no evidence of pericardial effusion. . Greater Vessels No dilation of the aortic root is present. Aortic root = 2.8 cm No dilation of the sinuses of Valsalva is present. The inferior vena cava is normally sized. Normal IVC inspiratory collapse of greater than 50% noted. Study Quality The study is technically adequate for diagnosis. Kristina Whaley BULK PIGMENT REDUCER CV ECHO ORDERABLES Final Result * POC Glucose Once (01/24/2025 4:36 PM EST) Glucose 102 70 - 130 mg/dL 01/24/2025 4:39 PM EST [facility] Comment:Serial Number: [id number]: [id number] Blood 01/24/2025 4:36 PM EST 01/24/2025 4:39 PM EST Sreedhar Cleaningsejal Boss DO POINT OF CARE TEST ORDERA BLES Final Result Performing Organization Address City/[facility]/ZIP Co de Phone Number [facility]
[address] [place] [address], * POC Glucose Once (01/24/2025 11:56 AM EST) [facility] Glucose 91 70 - 130 mg/dL 01/24/2025 11:58 AM EST [facility] Comment:Serial Number: [id number] Blood 01/24/2025 11:5 6 AM EST 01/24/2025 11:58 AM EST Sreedhar Uri Boss DO POINT OF CARE TEST ORDERA BLES Final Result Performing Organization Address [facility] Phone Number [facility]
[address] [place] [address], * (ABNORMAL) Urine Culture - Urine, Urine, Clean Catch (01/24/2025 9:54 AM EST) [facility] Urine Culture >100,000 CFU/mL Escherichia coli(A) CELENA 01/26/2025 9:42 AM EST [facility] Urine Urine specimen obtained by clean catch procedure / Unknown Collection / Unknown 01/24/2025 9:54 AM EST 01/24/2025 10:27 AM EST Narrative [facility] - 01/26/2025 9:42 AM EST Colonization of the urinary tract without infection is common. Treatment is discouraged unless the patient is symptomatic, , or undergoing an invasive urologic procedure. Organism Antibiotic Method Susceptibility Escherichia coli Amoxicillin + Clavulanate CELENA 4.0 ug/ml: Susceptible Escherichia coli Ampicillin CELENA 8.0 ug/ml: Susceptible Escherichia coli Ampicillin + Sulbactam CELENA <=2.0 ug/ml: Susceptible Escherichia coli Cefazolin (Urine) CELENA 4.0 ug/ml: Susceptible Escherichia coli Cefepime CELENA <=0.12 ug/ml: Susceptible Escherichia coli Ceftazidime CELENA <=0.5 ug/ml: Susceptible Escherichia coli Ceftriaxone CELENA <=0.25 ug/ml: Susceptible Escherichia coli Cefuroxime axetil CELENA 8.0 ug/ml: Intermediate Escherichia coli Gentamicin CELENA <=1.0 ug/ml: Susceptible Escherichia coli Levofloxacin CELENA <=0.12 ug/ml: Susceptible Escherichia coli Nitrofurantoin CELENA <=16.0 ug/ml: Susceptible Escherichia coli Piperacillin + Tazobactam CELENA <=4.0 ug/ml: Susceptible Escherichia coli Trimethoprim + Sulfamethoxazole CELENA <=20.0 ug/ml: Susceptible Anup Daniel MD MICROBIOLOGY - GENERAL ORDERA BLES Final Result [facility]
[address] [place] [address], * (ABNORMAL) Urinalysis, Microscopic Only - Urine, Clean Catch (01/24/2025 9:54 AM EST) RBC, UA 21-50(A) None Seen, 0-2 /HPF 01/24/2025 11:02 AM EST [facility] WBC, UA Too Numerous to Count(A) None Seen, 0-2 /HPF 01/24/2025 11:02 AM EST [facility] Bacteria, UA 4+(A) None Seen /HPF 01/24/2025 11:02 AM EST [facility] Squamous Epithelial Cells, UA 0-2 None Seen, 0-2 /HPF 01/24/2025 11:02 AM EST [facility] Hyaline Casts, UA None Seen None Seen /LPF 01/24/2025 11:02 AM EST [facility] Methodology Manual Light Microscopy 01/24/2025 11:02 AM [facility] Urine Urine specimen obtained by clean catch procedure / Unknown Collection / Unknown 01/24/2025 9:54 AM EST 01/24/2025 10:27 AM EST Anup Daniel MD URINE ORDERABLES Final Result [facility]
[address] [place] [address], * (ABNORMAL) Urinalysis With Culture If Indicated - Urine, Clean Catch (01/24/2025 9:54 AM EST) Color, UA Yellow Yellow, Straw 01/24/2025 10:35 AM [facility] Appearance, UA Turbid(A) Clear 01/24/2025 10:35 AM [facility] pH, UA 7.0 5.0 - 8.0 01/24/2025 10:35 AM [facility] Specific [place], UA 1.010 1.005 - 1.030 01/24/2025 10:35 AM [facility] Glucose, UA Negative Negative 01/24/2025 10:35 AM [facility] Ketones, UA Negative Negative 01/24/2025 10:35 AM [facility] Bilirubin, UA Negative Negative 01/24/2025 10:35 AM [facility] Blood, UA Large (3+)(A) Negative 01/24/2025 10:35 AM [facility] Protein, UA Negative Negative 01/24/2025 10:35 AM [facility] Leuk Esterase, UA Large (3+)(A) Negative 01/24/2025 10:35 AM [facility] Nitrite, UA Negative Negative 01/24/2025 10:35 AM [facility] Urobilinogen, UA 0.2 E.U./dL 0.2 - 1.0 E.U./dL 01/24/2025 10:35 AM [facility] [facility] Urine Urine specimen obtained by clean catch procedure / Unknown Collection / Unknown 01/24/2025 9:54 AM EST 01/24/2025 10:27 AM EST [facility] - 01/24/2025 10:35 AM EST In absence of clinical symptoms, the presence of pyuria, bacteria, and/or nitrites on the urinalysis result does not correlate with infection. Anup Daniel MD URINE ORDERABLES Final Result [facility]
[address] [place] [address], * Respiratory Panel PCR w/COVID-19(SARS-CoV-2) CHERI/MAI/LO/PAD/COR/NATA In-House, ASSET PROTECTION REPRESENTATIVE Swab in UTM/VTM, 2 HR TAT - Swab, Nasopharynx (01/24/2025 8:51 AM EST) ADENOVIRUS, PCR Not Detected Not Detected BIOFIRE TORCH 01/24/2025 12:56 PM [facility] Coronavirus 229E Not Detected Not Detected BIOFIRE TORCH 01/24/2025 12:56 PM [facility] Coronavirus HKU1 Not Detected Not Detected BIOFIRE TORCH 01/24/2025 12:56 PM [facility] Coronavirus NL63 Not Detected Not Detected BIOFIRE TORCH 01/24/2025 12:56 PM [facility] Coronavirus OC43 Not Detected Not Detected BIOFIRE TORCH 01/24/2025 12:56 PM [facility] COVID19 Not Detected Not Detected - Ref. Range BIOFIRE TORCH 01/24/2025 12:56 PM [facility] Human Metapneumovirus Not Detected Not Detected BIOFIRE TORCH 01/24/2025 12:56 PM [facility] Human Rhinovirus/Enterov irus Not Detected Not Detected BIOFIRE TORCH 01/24/2025 12:56 PM [facility] Influenza A PCR Not Detected Not Detected BIOFIRE TORCH 01/24/2025 12:56 PM [facility] Influenza B PCR Not Detected Not Detected BIOFIRE TORCH 01/24/2025 12:56 PM [facility] Parainfluenza Virus 1 Not Detected Not Detected BIOFIRE TORCH 01/24/2025 12:56 PM [facility] Parainfluenza Virus 2 Not Detected Not Detected BIOFIRE TORCH 01/24/2025 12:56 PM [facility] Parainfluenza Virus 3 Not Detected Not Detected BIOFIRE TORCH 01/24/2025 12:56 PM [facility] Parainfluenza Virus 4 Not Detected Not Detected BIOFIRE TORCH 01/24/2025 12:56 PM [facility] RSV, PCR Not Detected Not Detected BIOFIRE TORCH 01/24/2025 12:56 PM [facility] Bordetella pertussis pcr Not Detected Not Detected BIOFIRE TORCH 01/24/2025 12:56 PM [facility] Bordetella parapertussis PCR Not Detected Not Detected BIOFIRE TORCH 01/24/2025 12:56 PM [facility] Chlamydophila pneumoniae PCR Not Detected Not Detected BIOFIRE TORCH 01/24/2025 12:56 PM [facility] Mycoplasma pneumo by PCR Not Detected Not Detected BIOFIRE TORCH 01/24/2025 12:56 PM [facility] Swab Nasopharyngeal structure / Unknown Collection / Unknown 01/24/2025 8:51 AM EST 01/24/2025 11:32 AM [facility] - 01/24/2025 12:56 PM EST In the setting of a positive respiratory panel with a viral infection PLUS a negative procalcitonin without other underlying concern for bacterial infection, consider observing off antibiotics or discontinuation of antibiotics and continue supportive care. If the respiratory panel is positive for atypical bacterial infection (Bordetella pertussis, Chlamydophila pneumoniae, or Mycoplasma pneumoniae), consider antibiotic de-escalation to target atypical bacterial infection. Anup Daniel MD MICROBIOLOGY - GENERAL ORDERA BLES Final Result Performing Organization Address [facility] Co de Phone Number [facility]
[address] [place] [address], * POC Glucose Once (01/24/2025 7:39 AM EST) Glucose 93 70 - 130 mg/dL 01/24/2025 7:42 AM EST [facility] Comment:Serial Number: [id number]: [id number] Blood 01/24/2025 7:39 AM EST 01/24/2025 7:42 AM EST Sreedhar Boss DO POINT OF CARE TEST ORDERA BLES Final Result Performing Organization Address [facility] de Phone Number [facility]
[address] [place] [address], * Telemetry Scan (01/24/2025 7:33 AM EST) [facility] ECG ORDERABLES Final Result * TSH (01/24/2025 6:17 AM EST) TSH 0.293 0.270 - 4.200 uIU/mL 01/24/2025 7:32 AM EST [facility] Blood Venipuncture / Unknown 01/24/2025 6:17 AM EST 01/24/2025 6:57 AM EST Anup Daniel MD LAB BLOOD ORDERABLES Final Re sult Performing Organization Address [facility] Co de Phone Number [facility]
[address] [place] [address], * Magnesium (01/24/2025 6:17 AM EST) Magnesium 2.3 1.6 - 2.4 mg/dL 01/24/2025 7:32 AM EST [facility] Blood Venipuncture / Unknown 01/24/2025 6:17 AM EST 01/24/2025 6:57 AM EST Anup Daniel MD LAB BLOOD ORDERABLES Final Re sult [facility]
[address] [place] [address], * (ABNORMAL) Comprehensive Metabolic Panel (01/24/2025 6:17 AM EST) Pathologist [facility] Glucose 93 65 - 99 mg/dL 01/24/2025 7:32 AM [facility] BUN 9.5 8.0 - 23.0 mg/dL 01/24/2025 7:32 AM [facility] Creatinine 0.60 0.57 - 1.00 mg/dL 01/24/2025 7:32 AM [facility] Sodium 143 136 - 145 mmol/L 01/24/2025 7:32 AM [facility] Potassium 3.7 3.5 - 5.2 mmol/L 01/24/2025 7:32 AM [facility] Chloride 108(H) 98 - 107 mmol/L 01/24/2025 7:32 AM [facility] CO2 24.3 22.0 - 29.0 mmol/L 01/24/2025 7:32 AM [facility] Calcium 8.6 8.6 - 10.5 mg/dL 01/24/2025 7:32 AM [facility] Total Protein 7.0 6.0 - 8.5 g/dL 01/24/2025 7:32 AM [facility] Albumin 4.4 3.5 - 5.2 g/dL 01/24/2025 7:32 AM [facility] ALT (SGPT) 20 1 - 33 U/L 01/24/2025 7:32 AM EST [facility] AST (SGOT) 19 1 - 32 U/L 01/24/2025 7:32 AM EST [facility] Alkaline Phosphatase 91 39 - 117 U/L 01/24/2025 7:32 AM EST [facility] Total Bilirubin 0.3 0.0 - 1.2 mg/dL 01/24/2025 7:32 AM [facility] Globulin 2.6 gm/dL 01/24/2025 7:32 AM [facility] Comment:Calculated Result A/G Ratio 1.7 g/dL 01/24/2025 7:32 AM [facility] BUN/Creatinine Ratio 15.8 7.0 - 25.0 01/24/2025 7:32 AM [facility] Anion Gap 10.7 5.0 - 15.0 mmol/L 01/24/2025 7:32 AM [facility] eGFR 89.7 >60.0 mL/min/1.7 3 01/24/2025 7:32 AM [facility] Blood Venipuncture / Unknown 01/24/2025 6:17 AM EST 01/24/2025 6:57 AM EST [facility] - 01/24/2025 7:32 AM EST GFR Categories in Chronic Kidney Disease (CKD) GFR Category GFR (mL/min/1.73) Interpretation G1 90 or greater Normal or high (1) G2 60-89 Mild decrease (1) G3a 45-59 Mild to moderate decrease G3b 30-44 Moderate to severe decrease G4 15-29 Severe decrease G5 14 or less Kidney failure (1)In the absence of evidence of kidney disease, neither GFR category G1 or G2 fulfill the criteria for CKD. eGFR calculation 2020 CKD-EPI creatinine equation, which does not include race as a factor us Anup Daniel MD LAB BLOOD ORDERABLES Final Re sult [facility]
[address] [place] [address], * (ABNORMAL) CBC (No Diff) (01/24/2025 6:16 AM EST) WBC 10.37 3.40 - 10.80 10*3/mm3 01/24/2025 7:09 AM EST [facility] RBC 4.03 3.77 - 5.28 10*6/mm3 01/24/2025 7:09 AM EST [facility] Hemoglobin 13.7 12.0 - 15.9 g/dL 01/24/2025 7:09 AM [facility] Hematocrit 41.6 34.0 - 46.6 % 01/24/2025 7:09 AM [facility] MCV 103.2(H) 79.0 - 97.0 fL 01/24/2025 7:09 AM [facility] MCH 34.0(H) 26.6 - 33.0 pg 01/24/2025 7:09 AM [facility] MCHC 32.9 31.5 - 35.7 g/dL 01/24/2025 7:09 AM [facility] RDW 11.9(L) 12.3 - 15.4 % 01/24/2025 7:09 AM [facility] RDW-SD 45.7 37.0 - 54.0 fl 01/24/2025 7:09 AM [facility] MPV 10.8 6.0 - 12.0 fL 01/24/2025 7:09 AM [facility] Platelets 157 140 - 450 10*3/mm3 01/24/2025 7:09 AM [facility] Blood Venipuncture / Unknown 01/24/2025 6:16 AM EST 01/24/2025 6:58 AM EST us Anup Daniel MD LAB BLOOD ORDERABLES Final Re sult [facility]
[address] [place] [address], * ECG 12 Lead QT Measurement (01/24/2025 6:07 AM EST) QT Interval 408 ms ECG QTC Interval 461 ms ECG 01/24/2025 6:07 AM EST 01/26/2025 8:01 PM EST Narrative [facility] ECG - 01/26/2025 8:01 PM EST Test Reason : QT Measurement Blood Pressure : */* mmHG Vent. Rate : 77 BPM Atrial Rate : 77 BPM P-R Int : 202 ms QRS Dur : 78 ms QT Int : 408 ms P-R-T Axes : 55 -7 29 degrees QTcB Int : 461 ms Normal sinus rhythm Low voltage QRS Borderline ECG When compared with ECG of 20-Dec-2020 09:26, No significant change was found Confirmed by Clara Barksdale ([id number]) on 01/26/2025 8:01:30 PM Referred By: Confirmed By: Clara Barksdale Procedure Note Clara Barksdale MD - 01/26/2025 Test Reason : QT Measurement Blood Pressure : */* mmHG Vent. Rate : 77 BPM Atrial Rate : 77 BPM P-R Int : 202 ms QRS Dur : 78 ms QT Int : 408 ms P-R-T Axes : 55 -7 29 degrees QTcB Int : 461 ms Normal sinus rhythm Low voltage QRS Borderline ECG When compared with ECG of 20-Dec-2020 09:26, No significant change was found Confirmed by Clara Barksdale ([id number]) on 01/26/2025 8:01:30 PM Referred By: Confirmed By: Clara Barksdale Anup Daniel MD ECG ORDERABLES Final Result ECG documented in this encounter Visit Diagnoses Diagnosis Slurred speech- Primary Other speech disturbance Cognitive communication deficit Memory deficit Memory loss Anxiety Anxiety state, unspecified Chronic insomnia Insomnia, unspecified Depression Depressive disorder, not elsewhere classified 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 documented in this encounter Admitting Diagnoses Diagnosis Slurred speech Other speech disturbance documented in this encounter Administered Medications Inactive Administered Medications - up to 3 most recent administrations Medication Order MAR Action Action Date Dose Rate Site acetaminophen (TYLENOL) suppository 650 mg 650 mg, Rectal, Every 4 Hours PRN, Mild Pain, Fever, temperature greater than 100.4 F, Starting on 01/25/25 at 1041, If given for fever, use fever parameter: fever greater than 100.4 F Based on patient request - if ordered for moderate or severe pain, provider allows for administration of a medication prescribed for a lower pain scale. Do not exceed 4 grams of acetaminophen in a 24 hr period. Max dose of 2gm for AST/ALT greater than 120 units/L. If given for pain, use the following pain scale: Mild Pain = Pain Score of 1-3, CPOT 1-2 Moderate Pain = Pain Score of 4-6, CPOT 3-4 Severe Pain = Pain Score of 7-10, CPOT 5-8 acetaminophen (TYLENOL) tablet 650 mg 650 mg, Oral, Every 6 Hours PRN, Mild Pain, Headache, Fever, Moderate Pain, fever greater than 100.4 F, Starting on 01/25/25 at 1041, If given for fever, use fever parameter: fever greater than 100.4 F Based on patient request - if ordered for moderate or severe pain, provider allows for administration of a medication prescribed for a lower pain scale. Do not exceed 4 grams of acetaminophen in a 24 hr period. Max dose of 2gm for AST/ALT greater than 120 units/L. If given for pain, use the following pain scale: Mild Pain = Pain Score of 1-3, CPOT 1-2 Moderate Pain = Pain Score of 4-6, CPOT 3-4 Severe Pain = Pain Score of 7-10, CPOT 5-8 Given 01/26/2025 9:33 AM EST 650 mg Given 01/25/2025 2:01 PM EST 650 mg amLODIPine (NORVASC) tablet 5 mg 5 mg, Oral, Daily, First dose on 01/24/25 at 0900, Hold for SBP less than 100, DBP less than 60. Caution: Look alike/sound alike drug alert. Avoid grapefruit juice. Given 01/26/2025 9:33 AM EST 5 mg Given 01/25/2025 10:49 AM EST 5 mg aspirin chewable tablet 81 mg 81 mg, Oral, Daily, First dose on 01/24/25 at 2100, If patient fails dysphagia, MT option MUST be given. Do not exceed 4 grams of aspirin in a 24 hr period. If given for pain, use the following pain scale: Mild Pain = Pain Score of 1-3, CPOT 1-2 Moderate Pain = Pain Score of 4-6, CPOT 3-4 Severe Pain = Pain Score of 7-10, CPOT 5-8 Given 01/25/2025 10:02 PM EST 81 mg Given 01/24/2025 9:06 PM EST 81 mg aspirin suppository 300 mg 300 mg, Rectal, Daily, First dose on 01/24/25 at 2100, If patient fails dysphagia, MT option MUST be given. Do not exceed 4 grams of aspirin in a 24 hr period. If given for pain, use the following pain scale: Mild Pain = Pain Score of 1-3, CPOT 1-2 Moderate Pain = Pain Score of 4-6, CPOT 3-4 Severe Pain = Pain Score of 7-10, CPOT 5-8 atorvastatin (LIPITOR) tablet 40 mg 40 mg, Oral, Nightly, First dose on 01/24/25 at 2100, Avoid grapefruit juice. Given 01/25/2025 9:10 PM EST 40 mg Given 01/24/2025 9:06 PM EST 40 mg bisacodyl (DULCOLAX) EC tablet 5 mg 5 mg, Oral, Daily PRN, Constipation, Use if polyethylene glycol is ineffective, Starting on 01/24/25 at 0544, Use if no bowel movement after 12 hours. Swallow whole. Do not crush, split, or chew tablet. bisacodyl (DULCOLAX) suppository 10 mg 10 mg, Rectal, Daily PRN, Constipation, Use if bisacodyl oral is ineffective, Starting on 01/24/25 at 0544, Use if no bowel movement after 12 hours. Hold for diarrhea carvedilol (COREG) tablet 25 mg 25 mg, Oral, 2 Times Daily With Meals, First dose on 01/24/25 at 0800, Hold for SBP less than 100, DBP less than 60, or heart rate less than 50. If a dose is held, please contact the provider. Give with food. Given 01/26/2025 9:34 AM EST 25 mg Given 01/25/2025 5:28 PM EST 25 mg Given 01/25/2025 10:49 AM EST 25 mg clopidogrel (PLAVIX) tablet 75 mg 75 mg, Oral, Daily, First dose on 01/24/25 at 0900 Given 01/26/2025 9:33 AM EST 75 mg Given 01/25/2025 8:31 AM EST 75 mg Given 01/24/2025 8:49 AM EST 75 mg escitalopram (LEXAPRO) tablet 20 mg 20 mg, Oral, Daily, First dose on 01/24/25 at 0900, Caution: Look alike/sound alike drug alert. Given 01/26/2025 9:34 AM EST 20 mg Given 01/25/2025 8:31 AM EST 20 mg Given 01/24/2025 8:49 AM EST 20 mg fosfomycin (MONUROL) packet 3 g 3 g, Oral, Once, On 01/26/25 at 1030, For 1 dose, Mix contents in 3 to 4 oz. of water Given 01/26/2025 11:10 AM EST 3 g lactated ringers infusion 100 mL/hr, Intravenous, Continuous, Starting on 01/24/25 at 0700, For 10 hours New Bag 01/24/2025 7:52 AM EST 100 mL/hr 100 mL/hr melatonin tablet 5 mg 5 mg, Oral, Nightly PRN, Sleep, Starting on 01/24/25 at 2055 Given 01/25/2025 9:10 PM EST 5 mg Given 01/24/2025 9:06 PM EST 5 mg midazolam (VERSED) injection 0.5 mg 0.5 mg, Intravenous, Every 30 Minutes PRN, Pre-MRI for claustrophobia, can give first dose and if ineffective give a second dose 30 min later; max 2 doses, Starting on 01/24/25 at 1104, For 2 doses, If given IV Push: give slowly over at least 2 minutes, unless provider at bedside for induction. (ALLY) Given 01/26/2025 1:24 AM EST 0.5 mg oxyCODONE-acetaminophen (PERCOCET) 7.5-325 MG per tablet 1 tablet 1 tablet, Oral, 3 Times Daily PRN, Moderate Pain, Starting on 01/24/25 at 0541, Based on patient request - if ordered for moderate or severe pain, provider allows for administration of a medication prescribed for a lower pain scale. [ALLY] Do not exceed 4 grams of acetaminophen in a 24 hr period. Max dose of 2gm for AST/ALT greater than 120 units/L If given for pain, use the following pain scale: Mild Pain = Pain Score of 1-3, CPOT 1-2 Moderate Pain = Pain Score of 4-6, CPOT 3-4 Severe Pain = Pain Score of 7-10, CPOT 5-8 Given 01/25/2025 9:10 PM EST 1 tablet Given 01/25/2025 10:49 AM EST 1 tablet Given 01/24/2025 9:06 PM EST 1 tablet pantoprazole (PROTONIX) EC tablet 40 mg 40 mg, Oral, Daily, First dose on 01/24/25 at 0900, Do not crush or chew the capsules or tablets. The drug may not work as designed if the capsule or tablet is crushed or chewed. Swallow whole. Swallow whole; do not crush, split, or chew. Given 01/26/2025 9:34 AM EST 40 mg Given 01/25/2025 8:31 AM EST 40 mg Given 01/24/2025 8:49 AM EST 40 mg polyethylene glycol (MIRALAX) packet 17 g 17 g, Oral, Daily PRN, Constipation, Use if senna-docusate is ineffective, Starting on 01/24/25 at 0544, Use if no bowel movement after 12 hours. Mix in 6-8 ounces of water. Use 4-8 ounces of water, tea, or juice for each 17 gram dose. QUEtiapine (SEROquel) tablet 200 mg 200 mg, Oral, Once, On 01/25/25 at 0045, For 1 dose, Caution: Look alike/sound alike drug alert Given 01/25/2025 12:13 AM EST 200 mg sennosides-docusate (PERICOLACE) 8.6-50 MG per tablet 2 tablet 2 tablet, Oral, 2 Times Daily PRN, Constipation, Starting on 01/24/25 at 0544, Start bowel management regimen if patient has not had a bowel movement after 12 hours. sodium chloride 0.9 % flush 10 mL 10 mL, Intravenous, Every 12 Hours Scheduled, First dose on 01/24/25 at 0900 Given 01/26/2025 9:37 AM EST 10 mL Given 01/25/2025 8:31 AM EST 10 mL Given 01/24/2025 9:18 PM EST 10 mL sodium chloride 0.9 % flush 10 mL 10 mL, Intravenous, Every 12 Hours Scheduled, First dose on 01/24/25 at 0900 Given 01/26/2025 9:37 AM EST 10 mL Given 01/25/2025 9:10 PM EST 10 mL Given 01/25/2025 8:31 AM EST 10 mL sodium chloride 0.9 % flush 10 mL 10 mL, Intravenous, As Needed, Line Care, Starting on 01/24/25 at 0700 sodium chloride 0.9 % infusion 40 mL 40 mL, Intravenous, at 100 mL/hr, As Needed, Line Care, Starting on 01/24/25 at 0700, Following administration of an IV intermittent medication, flush line with 40mL NS at 100mL/hr. documented in this encounter Active and Recently Administered Medications Times are shown in EST. Scheduled Medication Order 01/24/2025 01/25/2025 01/26/2025 amLODIPine (NORVASC) tablet 5 mg 5 mg, Oral, Daily, First dose on 01/24/25 at 0900, Hold for SBP less than 100, DBP less than 60. Caution: Look alike/sound alike drug alert. Avoid grapefruit juice. 0544 (Held by provider - Provider: Anup Daniel MD - Reason: Hold For Procedure)0900 (Dose Auto Held) 0900 (Dose Auto Held)0957 (Unheld by provider - Provider: Sreedhar Boss DO)1049 (Given - Provider: Maninder Mosquera RN) 0933 (Given - Provider: Hannah Barrera RN) aspirin chewable tablet 81 mg(Linked Group 1) 81 mg, Oral, Daily, First dose on 01/24/25 at 2100, If patient fails dysphagia, MT option MUST be given. Do not exceed 4 grams of aspirin in a 24 hr period. If given for pain, use the following pain scale: Mild Pain = Pain Score of 1-3, CPOT 1-2 Moderate Pain = Pain Score of 4-6, CPOT 3-4 Severe Pain = Pain Score of 7-10, CPOT 5-8 2057 (Not Given: See Alt - Provider: Yue Christianson RN)2105 (Given - Provider: Yue Christianson RN) 2201 (Given - Provider: Yue Christianson RN) aspirin suppository 300 mg(Linked Group 1) 300 mg, Rectal, Daily, First dose on 01/24/25 at 2100, If patient fails dysphagia, MT option MUST be given. Do not exceed 4 grams of aspirin in a 24 hr period. If given for pain, use the following pain scale: Mild Pain = Pain Score of 1-3, CPOT 1-2 Moderate Pain = Pain Score of 4-6, CPOT 3-4 Severe Pain = Pain Score of 7-10, CPOT 5-8 2057 (Canceled Entry - Provider: Yue Christianson RN - Comment: taking po meds)2105 (Not Given: See Alt - Provider: Yue Christianson RN) 2201 (Not Given: See Alt - Provider: Yue Christianson RN) atorvastatin (LIPITOR) tablet 40 mg 40 mg, Oral, Nightly, First dose on 01/24/25 at 2100, Avoid grapefruit juice. 2105 (Given - Provider: Yue Christianson RN) 2109 (Given - Provider: Yue Christianson RN) carvedilol (COREG) tablet 25 mg 25 mg, Oral, 2 Times Daily With Meals, First dose on 01/24/25 at 0800, Hold for SBP less than 100, DBP less than 60, or heart rate less than 50. If a dose is held, please contact the provider. Give with food. 0544 (Held by provider - Provider: Anup Daniel MD - Reason: Hold For Procedure)0800 (Dose Auto Held)1800 (Dose Auto Held) 0800 (Dose Auto Held)0957 (Unheld by provider - Provider: Sreedhar Boss DO)1049 (Given - Provider: Maninder oMsquera RN)1728 (Given - Provider: Maninder Mosquera RN) 0934 (Given - Provider: Hannah Barrera RN) clopidogrel (PLAVIX) tablet 75 mg 75 mg, Oral, Daily, First dose on 01/24/25 at 0900 0849 (Given - Provider: Maisha Thompson RN) 0831 (Given - Provider: Maninder Mosquera RN) 0933 (Given - Provider: Hannah Barrera, TRACI) escitalopram (LEXAPRO) tablet 20 mg 20 mg, Oral, Daily, First dose on 01/24/25 at 0900, Caution: Look alike/sound alike drug alert. 0849 (Given - Provider: Maisha Thompson RN) 0831 (Given - Provider: Maninder Mosquera RN) 0934 (Given - Provider: Hannah Barrera, TRACI) fosfomycin (MONUROL) packet 3 g (COMPLETED) 3 g, Oral, Once, On 01/26/25 at 1030, For 1 dose, Mix contents in 3 to 4 oz. of water 1110 (Given - Provider: Hannah Barrera RN) pantoprazole (PROTONIX) EC tablet 40 mg 40 mg, Oral, Daily, First dose on 01/24/25 at 0900, Do not crush or chew the capsules or tablets. The drug may not work as designed if the capsule or tablet is crushed or chewed. Swallow whole. Swallow whole; do not crush, split, or chew. 0849 (Given - Provider: Maisha Thompson RN) 0831 (Given - Provider: Maninder Mosquera RN) 0934 (Given - Provider: Hannah Barrera RN) QUEtiapine (SEROquel) tablet 200 mg 200 mg, Oral, Nightly, First dose on 01/24/25 at 0630, Caution: Look alike/sound alike drug alert, On hold since 01/24/2025 at 0544 until manually unheld 0544 (Held by provider - Provider: Anup Daniel MD - Reason: Hold For Procedure)0630 (Dose Auto Held)2100 (Dose Auto Held) 2100 (Dose Auto Held) 1719 (Unheld by provider - Provider: Automatic Discharge Provider) QUEtiapine (SEROquel) tablet 200 mg (COMPLETED) 200 mg, Oral, Once, On 01/25/25 at 0045, For 1 dose, Caution: Look alike/sound alike drug alert 0013 (Given - Provider: Yue Christianson RN) sodium chloride 0.9 % flush 10 mL 10 mL, Intravenous, Every 12 Hours Scheduled, First dose on 01/24/25 at 0900 0849 (Given - Provider: Maisha Thompson RN)2118 (Given - Provider: Yue Christianson RN) 0831 (Given - Provider: Maninder Mosquera RN)2259 (Not Given - Provider: Yue Christianson RN - Reason: Other) 0937 (Given - Provider: Hannah Barrera, RN) sodium chloride 0.9 % flush 10 mL 10 mL, Intravenous, Every 12 Hours Scheduled, First dose on 01/24/25 at 0900 0849 (Given - Provider: Maisha Thompson RN)2106 (Given - Provider: Yue Christianson RN) 0831 (Given - Provider: Maninder Mosquera RN)2110 (Given - Provider: Yue Christianson RN) 0937 (Given - Provider: Hannah Barrera, TRACI) Continuous Medication Order 01/24/2025 01/25/2025 01/26/2025 lactated ringers infusion () 100 mL/hr, Intravenous, Continuous, Starting on 01/24/25 at 0700, For 10 hours 0752 (New Bag - Provider: Maisha Thompson RN)1728 (Stopped - Provider: Maisha Thompson RN - Comment: [Order ends at this time. Document the following action when infusion is complete: Stopped]) PRN Medication Order 01/24/2025 01/25/2025 01/26/2025 acetaminophen (TYLENOL) suppository 650 mg(Linked Group 2) 650 mg, Rectal, Every 4 Hours PRN, Mild Pain, Fever, temperature greater than 100.4 F, Starting on 01/25/25 at 1041, If given for fever, use fever parameter: fever greater than 100.4 F Based on patient request - if ordered for moderate or severe pain, provider allows for administration of a medication prescribed for a lower pain scale. Do not exceed 4 grams of acetaminophen in a 24 hr period. Max dose of 2gm for AST/ALT greater than 120 units/L. If given for pain, use the following pain scale: Mild Pain = Pain Score of 1-3, CPOT 1-2 Moderate Pain = Pain Score of 4-6, CPOT 3-4 Severe Pain = Pain Score of 7-10, CPOT 5-8 1401 (Not Given: See Alt - Provider: Maninder Mosquera RN) 0933 (Not Given: See Alt - Provider: Hannah Barrera, RN) acetaminophen (TYLENOL) tablet 650 mg(Linked Group 2) 650 mg, Oral, Every 6 Hours PRN, Mild Pain, Headache, Fever, Moderate Pain, fever greater than 100.4 F, Starting on 01/25/25 at 1041, If given for fever, use fever parameter: fever greater than 100.4 F Based on patient request - if ordered for moderate or severe pain, provider allows for administration of a medication prescribed for a lower pain scale. Do not exceed 4 grams of acetaminophen in a 24 hr period. Max dose of 2gm for AST/ALT greater than 120 units/L. If given for pain, use the following pain scale: Mild Pain = Pain Score of 1-3, CPOT 1-2 Moderate Pain = Pain Score of 4-6, CPOT 3-4 Severe Pain = Pain Score of 7-10, CPOT 5-8 1401 (Given - Provider: Maninder Mosquera RN) 0933 (Given - Provider: Hannah Barrera, TRACI) bisacodyl (DULCOLAX) EC tablet 5 mg(Linked Group 3) 5 mg, Oral, Daily PRN, Constipation, Use if polyethylene glycol is ineffective, Starting on 01/24/25 at 0544, Use if no bowel movement after 12 hours. Swallow whole. Do not crush, split, or chew tablet. bisacodyl (DULCOLAX) suppository 10 mg(Linked Group 3) 10 mg, Rectal, Daily PRN, Constipation, Use if bisacodyl oral is ineffective, Starting on 01/24/25 at 0544, Use if no bowel movement after 12 hours. Hold for diarrhea Calcium Replacement - Follow Nurse / BPA Driven Protocol Open Order & Select S Electrolyte Replacement Protocol Algorithm to View Details Magnesium Cardiology Dose Replacement - Follow Nurse / BPA Driven Protocol Open Order & Select S Electrolyte Replacement Protocol Algorithm to View Details melatonin tablet 5 mg 5 mg, Oral, Nightly PRN, Sleep, Starting on 01/24/25 at 2055 2106 (Given - Provider: Yue Christianson RN) 2110 (Given - Provider: Yue Christianson RN) midazolam (VERSED) injection 0.5 mg 0.5 mg, Intravenous, Every 30 Minutes PRN, Pre-MRI for claustrophobia, can give first dose and if ineffective give a second dose 30 min later; max 2 doses, Starting on 01/24/25 at 1104, For 2 doses, If given IV Push: give slowly over at least 2 minutes, unless provider at bedside for induction. (ALLY) 0124 (Given - Provider: Yue Christianson RN) oxyCODONE-acetaminophen (PERCOCET) 7.5-325 MG per tablet 1 tablet 1 tablet, Oral, 3 Times Daily PRN, Moderate Pain, Starting on 01/24/25 at 0541, Based on patient request - if ordered for moderate or severe pain, provider allows for administration of a medication prescribed for a lower pain scale. [ALLY] Do not exceed 4 grams of acetaminophen in a 24 hr period. Max dose of 2gm for AST/ALT greater than 120 units/L If given for pain, use the following pain scale: Mild Pain = Pain Score of 1-3, CPOT 1-2 Moderate Pain = Pain Score of 4-6, CPOT 3-4 Severe Pain = Pain Score of 7-10, CPOT 5-8 2106 (Given - Provider: Yue Christianson RN) 1049 (Given - Provider: Maninder Mosquera RN)2110 (Given - Provider: Yue Christianson RN) Phosphorus Replacement - Follow Nurse / BPA Driven Protocol Open Order & Select [facility] Electrolyte Replacement Protocol Algorithm to View Details polyethylene glycol (MIRALAX) packet 17 g(Linked Group 3) 17 g, Oral, Daily PRN, Constipation, Use if senna-docusate is ineffective, Starting on 01/24/25 at 0544, Use if no bowel movement after 12 hours. Mix in 6-8 ounces of water. Use 4-8 ounces of water, tea, or juice for each 17 gram dose. Potassium Replacement - Follow Nurse / BPA Driven Protocol Open Order & Select S Electrolyte Replacement Protocol Algorithm to View Details sennosides-docusate (PERICOLACE) 8.6-50 MG per tablet 2 tablet(Linked Group 3) 2 tablet, Oral, 2 Times Daily PRN, Constipation, Starting on 01/24/25 at 0544, Start bowel management regimen if patient has not had a bowel movement after 12 hours. sodium chloride 0.9 % flush 10 mL 10 mL, Intravenous, As Needed, Line Care, Starting on 01/24/25 at 0542 sodium chloride 0.9 % flush 10 mL 10 mL, Intravenous, As Needed, Line Care, Starting on 01/24/25 at 0700 sodium chloride 0.9 % infusion 40 mL 40 mL, Intravenous, at 100 mL/hr, As Needed, Line Care, Starting on 01/24/25 at 0542, Following administration of an IV intermittent medication, flush line with 40mL NS at 100mL/hr. sodium chloride 0.9 % infusion 40 mL 40 mL, Intravenous, at 100 mL/hr, As Needed, Line Care, Starting on 01/24/25 at 0700, Following administration of an IV intermittent medication, flush line with 40mL NS at 100mL/hr. Linked Groups Order Group 1: aspirin chewable tablet 81 mgJump to med 81 mg, Oral, Daily, First dose on 01/24/25 at 2100, If patient fails dysphagia, MT option MUST be given. Do not exceed 4 grams of aspirin in a 24 hr period. If given for pain, use the following pain scale: Mild Pain = Pain Score of 1-3, CPOT 1-2 Moderate Pain = Pain Score of 4-6, CPOT 3-4 Severe Pain = Pain Score of 7-10, CPOT 5-8 Or aspirin suppository 300 mgJump to med 300 mg, Rectal, Daily, First dose on 01/24/25 at 2100, If patient fails dysphagia, MT option MUST be given. Do not exceed 4 grams of aspirin in a 24 hr period. If given for pain, use the following pain scale: Mild Pain = Pain Score of 1-3, CPOT 1-2 Moderate Pain = Pain Score of 4-6, CPOT 3-4 Severe Pain = Pain Score of 7-10, CPOT 5-8 Group 2: acetaminophen (TYLENOL) tablet 650 mgJump to med 650 mg, Oral, Every 6 Hours PRN, Mild Pain, Headache, Fever, Moderate Pain, fever greater than 100.4 F, Starting on 01/25/25 at 1041, If given for fever, use fever parameter: fever greater than 100.4 F Based on patient request - if ordered for moderate or severe pain, provider allows for administration of a medication prescribed for a lower pain scale. Do not exceed 4 grams of acetaminophen in a 24 hr period. Max dose of 2gm for AST/ALT greater than 120 units/L. If given for pain, use the following pain scale: Mild Pain = Pain Score of 1-3, CPOT 1-2 Moderate Pain = Pain Score of 4-6, CPOT 3-4 Severe Pain = Pain Score of 7-10, CPOT 5-8 Or acetaminophen (TYLENOL) suppository 650 mgJump to med 650 mg, Rectal, Every 4 Hours PRN, Mild Pain, Fever, temperature greater than 100.4 F, Starting on 01/25/25 at 1041, If given for fever, use fever parameter: fever greater than 100.4 F Based on patient request - if ordered for moderate or severe pain, provider allows for administration of a medication prescribed for a lower pain scale. Do not exceed 4 grams of acetaminophen in a 24 hr period. Max dose of 2gm for AST/ALT greater than 120 units/L. If given for pain, use the following pain scale: Mild Pain = Pain Score of 1-3, CPOT 1-2 Moderate Pain = Pain Score of 4-6, CPOT 3-4 Severe Pain = Pain Score of 7-10, CPOT 5-8 Group 3: sennosides-docusate (PERICOLACE) 8.6-50 MG per tablet 2 tabletJump to med 2 tablet, Oral, 2 Times Daily PRN, Constipation, Starting on 01/24/25 at 0544, Start bowel management regimen if patient has not had a bowel movement after 12 hours. And polyethylene glycol (MIRALAX) packet 17 gJump to med 17 g, Oral, Daily PRN, Constipation, Use if senna-docusate is ineffective, Starting on 01/24/25 at 0544, Use if no bowel movement after 12 hours. Mix in 6-8 ounces of water. Use 4-8 ounces of water, tea, or juice for each 17 gram dose. And bisacodyl (DULCOLAX) EC tablet 5 mgJump to med 5 mg, Oral, Daily PRN, Constipation, Use if polyethylene glycol is ineffective, Starting on 01/24/25 at 0544, Use if no bowel movement after 12 hours. Swallow whole. Do not crush, split, or chew tablet. And bisacodyl (DULCOLAX) suppository 10 mgJump to med 10 mg, Rectal, Daily PRN, Constipation, Use if bisacodyl oral is ineffective, Starting on 01/24/25 at 0544, Use if no bowel movement after 12 hours. 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
[2025-02-20] VITALS (7 sets, daily range): BP systolic 122–153; BP diastolic 78–96; PULSE 74–97; RESP 18; TEMP 36.7–37.1; O2SAT 96–99; BMI 26.6
--- NOTE | 2025-02-20 18:45 | PC.NURSE ---
Patients FSBS is 128.
--- OUTSIDE RECORDS SUMMARY | 2025-02-20 18:45 | XMS_ITS | Encounter Summary ---
Author Organization [facility] yste Address [address] [place] [address] Care Team Providers Care Housekeeper Cleaning Cooking Name Role Phone Hawk Davis MD Primary Care Provider [phone] Encounter Details Date Type Department Care Team (Latest Contact Info) Description 01/24/2025 Travel Social History Tobacco Use Types Packs/Day Years Used Date Smoking Tobacco: Former Alcohol Use Standard Drinks/Week Comments Yes 1 (1 standard drink = 0.6 oz pur e alcohol) socially AUDIT-C Answer Date Recorded Q1: How often do you have a drink containing alcohol? Never 01/24/2025 Q2: How many drinks containi ng alcohol do you have on a typical day when you are drinking? Patient does not drink Q3: How often do you have si x or more drinks on one occasion? Never 01/24/2025 Abuse Screen Answer Date Recorded Feels Unsafe at Home or Work/School no 01/24/2025 Feels Threatened by Someone no 10/2024 Does Anyone Try to Keep You From Having Contact with Others or Doing Things Outside Your Home? no 01/24/2025 Physical Signs of Abuse Present no 01/24/2025 Housing Stability Answer Date Recorded Current Living Arrangements home 10/2024 Potentially Unsafe Housing Conditions Not on jyoti e 01/24/2025 Family and Community Support Answer Johnson e Recorded Help with Day-to-Day Activities Not on file 12/29/2022 Lonely or Isolated Not on file 12/29/2022 Employment Answer Date Recorded Do you want help finding or keeping work or a carmen b? Not on file 12/29/2022 Disabilities Answer Date Recorded Difficulty Concentrating, Remembering or Making Decisions no 01/24/2025 Difficulty Managing Errands Independently no 01/24/2025 Education Answer Date Recorded Help with school or training? Not on file Preferred Language Not on file 12/29/2022 Comments No Sex and Gender Information Value Date Recorded Sex Assigned at Not on file Legal Sex Female 8:49 AM EDT Gender Identity Not on file Sexual Orientation Not on file documented as of this encounter Functional Status * Question Answer Date of Assessment Author 1. Wish to be (Past 1 Month) No 025 4:02 AM Hawk Camarillo RN 2. Non-Specific Active Suici luis antonio Thoughts (Past 1 Month) No 01/24/2025 4:02 AM Braeden Camarillo RN * Calculated C-SSRS Risk Score (Lifetime/Recent) Answer Date of Assessment Author No Risk Indicated 01/24/2025 4:02 AM Hawk Reyes RN * Peggs Suicide Severity Rating Scale (Screener/Recent Self-Report) Question Answer Date of Assessment Author 6. Suicidal Behavior (Lifetime) No 4:02 AM Hawk Camarillo RN documented as of this encounter Plan of Treatment Not on file documented as of this encounter Visit Diagnoses Not on filedocumented in this encounter Care Teams Housekeeper Cleaning Cooking Relationship Specialty Start Date End Date Hawk Davis MD [address] [facility] [address] [facility] [place] [address] PCP - General Adolescent Medicine 12/20/20 documented as of this encounter
--- OUTSIDE RECORDS SUMMARY | 2025-02-20 18:46 | XMS_ITS | Encounter Summary ---
Author Organization [employer] ([place], [place], [place], [place], [place]) Address [address] [place] [id number] Care Team Providers Care Registered Art Therapist Name Role Phone Unavailable Primary Care Provider Unavailabl e Encounter Details Date Type Department Care Team (Late st Contact Info) Description 09/21/2020 Transcribed Document [facility] Family Medicine [address] [place] [address] ProviderShannan MD [address] [place] [address] Social History Tobacco Use Types Packs/Day Years Used Date Smoking Tobacco: Never Assessed Comments Unknown Sex and Gender Information Value Date Recorded Sex Assigned at Not on file Legal Sex Female 7:22 PM CDT Gender Identity Not on file Sexual Orientation Not on file documented as of this encounter Miscellaneous Notes * Cerner Conversion Note - Historical ProviderMD - 09/21/2020 2:00 AM CDT Squeak Rattle And Leak Repairer Details Entered On: 09/21/2020 3:46 EDT Performed On: 09/21/2020 2:00 EDT by Alyce Parker Rn Order Details Transport Mode Order Detail : Wheelchair Isolation Precautions Order Detail : Standard Precautions Order Detail : N/A IV Order Detail : 1 Oxygen Order Detail : 0 Nurse Collect Order Detail : 1 Lift/Transfer : Minimal Central Line Order Detail : No Room Service : Appropriate Arterial Line : No Patient Needs Meds Crushed/Liquid : No Alyce Parker Rn - 09/21/2020 3:46 EDT documented in this encounter Plan of Treatment Not on file documented as of this encounter Visit Diagnoses Not on filedocumented in this encounter
--- OUTSIDE RECORDS SUMMARY | 2025-02-20 18:46 | XMS_ITS | Encounter Summary ---
Author Organization [employer] ([place], [place], [place], [place], [place]) Address [address] [place] [address] Care Team Providers Care Minute Clerk For Basic Traffic Name Role Phone Unavailable Primary Care Provider Unavailabl e Encounter Details Date Type Department Care Team (Late st Contact Info) Description 09/22/2020 Transcribed Document [facility] [place] [address] [place] [address] ProviderShannan MD [address] [place] [address] Social History Tobacco Use Types Packs/Day Years Used Date Smoking Tobacco: Never Assessed Comments Unknown Sex and Gender Information Value Date Recorded Sex Assigned at Not on file Legal Sex Female 7:22 PM CDT Gender Identity Not on file Sexual Orientation Not on file documented as of this encounter Miscellaneous Notes * Cerner Conversion Note - Historical ProviderMD - 09/22/2020 2:00 AM CDT Phone Counselor Details Entered On: 09/22/2020 0:23 EDT Performed On: 09/22/2020 2:00 EDT by Alyce Parker Rn Order [...] Crushed/Liquid : No Alyce Parker Rn - 09/22/2020 0:23 EDT documented in this encounter Plan of Treatment Not on file documented as of this encounter Visit Diagnoses Not on filedocumented in this encounter
--- OUTSIDE RECORDS SUMMARY | 2025-02-20 18:46 | XMS_ITS | Encounter Summary ---
Author Organization [employer] ([place], [place], [place], [place], [place]) Address [address] [place] [address] Care Team Providers Care Senior Trainer Name Role Phone Unavailable Primary Care Provider Unavailabl e Encounter Details Date Type Department Care Team (Late st Contact Info) Description 09/23/2020 Transcribed Document [facility] [place] [facility] [place] [address] [place] [address] ProviderShannan MD [address] [place] [address] Social History Tobacco Use Types Packs/Day Years Used Date Smoking Tobacco: Never Assessed Comments Unknown Sex and Gender Information Value Date Recorded Sex Assigned at Not on file Legal Sex Female 7:22 PM CDT Gender Identity Not on file Sexual Orientation Not on file documented as of this encounter Miscellaneous Notes * [employer] Conversion Note - Shannan Nugent MD - 09/23/2020 10:58 AM CDT Patient Education Materials Follows: Peptic Ulcer A peptic ulcer is a painful sore in the lining of your stomach or the first part of your small intestine. What are the causes? Common causes of this condition include: ??? An infection. ??? Using certain pain medicines too often or too much. What increases the risk? You are more likely to get this condition if you: ??? Smoke. ??? Have a family history of ulcer disease. ??? Drink alcohol. ??? Have been hospitalized in an intensive care unit (ICU). What are the signs or symptoms? Symptoms include: ??? Burning pain in the area between the chest and the belly button. The pain may: ? Not go away (be persistent). ? Be worse when your stomach is empty. ? Be worse at night. ??? Heartburn. ??? Feeling sick to your stomach (nauseous) and throwing up (vomiting). ??? Bloating. If the ulcer results in bleeding, it can cause you to: ??? Have poop (stool) that is black and looks like tar. ??? Throw up bright red blood. ??? Throw up material that looks like coffee grounds. How is this treated? Treatment for this condition may include: ??? Stopping things that can cause the ulcer, such as: ? Smoking. ? Using pain medicines. ??? Medicines to reduce stomach acid. ??? Antibiotic medicines if the ulcer is caused by an infection. ??? A procedure that is done using a small, flexible tube that has a camera at the end (upper endoscopy). This may be done if you have a bleeding ulcer. ??? Surgery. This may be needed if: ? You have a lot of bleeding. ? The ulcer caused a hole somewhere in the digestive system. Follow these instructions at home: ??? Do not drink alcohol if your doctor tells you not to drink. ??? Limit how much caffeine you take in. ??? Do not use any products that contain nicotine or tobacco, such as cigarettes, e-cigarettes, and chewing tobacco. If you need help quitting, ask your doctor. ??? Take mzbs-nof-ypzlpnt and prescription medicines only as told by your doctor. ? Do not stop or change your medicines unless you talk with your doctor about it first. ? Do not take aspirin, ibuprofen, or other NSAIDs unless your doctor told you to do so. ??? Keep all follow-up visits as told by your doctor. This is important. Contact a doctor if: ??? You do not get better in 7 days after you start treatment. ??? You keep having an upset stomach (indigestion) or heartburn. Get help right away if: ??? You have sudden, sharp pain in your belly (abdomen). ??? You have belly pain that does not go away. ??? You have bloody poop (stool) or black, tarry poop. ??? You throw up blood. It may look like coffee grounds. ??? You feel light-headed or feel like you may pass out (faint). ??? You get weak. ??? You get sweaty or feel sticky and cold to the touch (clammy). Summary ??? Symptoms of a peptic ulcer include burning pain in the area between the chest and the belly button. ??? Take medicines only as told by your doctor. ??? Limit how much alcohol and caffeine you have. ??? Keep all follow-up visits as told by your doctor. This information is not intended to replace advice given to you by your health care provider. Make sure you discuss any questions you have with your health care provider. Document Revised: 09/10/2018 Document Reviewed: 09/10/2018 [employer] Patient Education ? 2020 [employer]. Gastritis, Adult Gastritis is swelling (inflammation) of the stomach. Gastritis can develop quickly (acute). It can also develop slowly over time (chronic). It is important to get help for this condition. If you do not get help, your stomach can bleed, and you can get sores (ulcers) in your stomach. What are the causes? This condition may be caused by: ??? Germs that get to your stomach. ??? Drinking too much alcohol. ??? Medicines you are taking. ??? Too much acid in the stomach. ??? A disease of the intestines or stomach. ??? Stress. ??? An allergic reaction. ??? Crohn's disease. ??? Some cancer treatments (radiation). Sometimes the cause of this condition is not known. What are the signs or symptoms? Symptoms of this condition include: ??? Pain in your stomach. ??? A burning feeling in your stomach. ??? Feeling sick to your stomach (nauseous). ??? Throwing up (vomiting). ??? Feeling too full after you eat. ??? Weight loss. ??? Bad breath. ??? Throwing up blood. ??? Blood in your poop (stool). How is this diagnosed? This condition may be diagnosed with: ??? Your medical history and symptoms. ??? A physical exam. ??? Tests. These can include: ? Blood tests. ? Stool tests. ? A procedure to look inside your stomach (upper endoscopy). ? A test in which a sample of tissue is taken for testing (biopsy). How is this treated? Treatment for this condition depends on what caused it. You may be given: ??? Antibiotic medicine, if your condition was caused by germs. ??? H2 blockers and similar medicines, if your condition was caused by too much acid. Follow these instructions at home: Medicines ??? Take fkrh-buk-rtxvwrq and prescription medicines only as told by your doctor. ??? If you were prescribed an antibiotic medicine, take it as told by your doctor. Do not stop taking it even if you start to feel better. Eating and drinking ??? Eat small meals often, instead of large meals. ??? Avoid foods and drinks that make your symptoms worse. ??? Drink enough fluid to keep your pee (urine) pale yellow. Alcohol use ??? Do not drink alcohol if: ? Your doctor tells you not to drink. ? You are , may be , or are planning to become . ??? If you drink alcohol: ? Limit your use to: ? 0?1 drink a day for women. ? 0?2 drinks a day for men. ? Be aware of how much alcohol is in your drink. In the [place] one drink equals one 12 oz bottle of beer (355 mL), one 5 oz glass of wine (148 mL), or one 1? oz glass of hard liquor (44 mL). General instructions ??? Talk with your doctor about ways to manage stress. You can exercise or do deep breathing, meditation, or yoga. ??? Do not smoke or use products that have nicotine or tobacco. If you need help quitting, ask your doctor. ??? Keep all follow-up visits as told by your doctor. This is important. Contact a doctor if: ??? Your symptoms get worse. ??? Your symptoms go away and then come back. Get help right away if: ??? You throw up blood or something that looks like coffee grounds. ??? You have black or dark red poop. ??? You throw up any time you try to drink fluids. ??? Your stomach pain gets worse. ??? You have a fever. ??? You do not feel better after one week. Summary ??? Gastritis is swelling (inflammation) of the stomach. ??? You must get help for this condition. If you do not get help, your stomach can bleed, and you can get sores (ulcers). ??? This condition is diagnosed with medical history, physical exam, or tests. ??? You can be treated with medicines for germs or medicines to block too much acid in your stomach. This information is not intended to replace advice given to you by your health care provider. Make sure you discuss any questions you have with your health care provider. Document Revised: 07/23/2018 Document Reviewed: 07/23/2018 [employer] Patient Education ? 2020 [place]. Hiatal Hernia A hiatal hernia occurs when part of the stomach slides above the muscle that separates the abdomen from the chest (diaphragm). A person can be born with a hiatal hernia (congenital), or it may develop over time. In almost all cases of hiatal hernia, only the top part of the stomach pushes through the diaphragm. Many people have a hiatal hernia with no symptoms. The larger the hernia, the more likely it is that you will have symptoms. In some cases, a hiatal hernia allows stomach acid to flow back into the tube that carries food from your mouth to your stomach (esophagus). This may cause heartburn symptoms. Severe heartburn symptoms may mean that you have developed a condition called gastroesophageal reflux disease (GERD). What are the causes? This condition is caused by a weakness in the opening (hiatus) where the esophagus passes through the diaphragm to attach to the upper part of the stomach. A person may be born with a weakness in the hiatus, or a weakness can develop over time. What increases the risk? This condition is more likely to develop in: ??? Older people. Age is a major risk factor for a hiatal hernia, especially if you are over the age of 50. ??? women. ??? People who are overweight. ??? People who have frequent constipation. What are the signs or symptoms? Symptoms of this condition usually develop in the form of GERD symptoms. Symptoms include: ??? Heartburn. ??? Belching. ??? Indigestion. ??? Trouble swallowing. ??? Coughing or wheezing. ??? Sore throat. ??? Hoarseness. ??? Chest pain. ??? Nausea and vomiting. How is this diagnosed? This condition may be diagnosed during testing for GERD. Tests that may be done include: ??? X-rays of your stomach or chest. ??? An upper gastrointestinal (GI) series. This is an X-ray exam of your GI tract that is taken after you swallow a chalky liquid that shows up clearly on the X-ray. ??? Endoscopy. This is a procedure to look into your stomach using a thin, flexible tube that has a tiny camera and light on the end of it. How is this treated? This condition may be treated by: ??? Dietary and lifestyle changes to help reduce GERD symptoms. ??? Medicines. These may include: ? Whjv-rkl-tzpwdxx antacids. ? Medicines that make your stomach empty more quickly. ? Medicines that block the production of stomach acid (H2 blockers). ? Stronger medicines to reduce stomach acid (proton pump inhibitors). ??? Surgery to repair the hernia, if other treatments are not helping. If you have no symptoms, you may not need treatment. Follow these instructions at home: Lifestyle and activity ??? Do not use any products that contain nicotine or tobacco, such as cigarettes and e-cigarettes. If you need help quitting, ask your health care provider. ??? Try to achieve and maintain a healthy body weight. ??? Avoid putting pressure on your abdomen. Anything that puts pressure on your abdomen increases the amount of acid that may be pushed up into your esophagus. ? Avoid bending over, especially after eating. ? Raise the head of your bed by putting blocks under the legs. This keeps your head and esophagus higher than your stomach. ? Do not wear tight clothing around your chest or stomach. ? Try not to strain when having a bowel movement, when urinating, or when lifting heavy objects. Eating and drinking ??? Avoid foods that can worsen GERD symptoms. These may include: ? Fatty foods, like fried foods. ? [place]ven fruits, like oranges or lemon. ? Other foods and drinks that contain acid, like orange juice or tomatoes. ? Spicy food. ? Chocolate. ??? Eat frequent small meals instead of three large meals a day. This helps prevent your stomach from getting too full. ? Eat slowly. ? Do not lie down right after eating. ? Do not eat 1?2 hours before bed. ??? Do not drink beverages with caffeine. These include cola, coffee, cocoa, and tea. ??? Do not drink alcohol. General instructions ??? Take glfa-qqa-dmdhbyh and prescription medicines only as told by your health care provider. ??? Keep all follow-up visits as told by your health care provider. This is important. Contact a health care provider if: ??? Your symptoms are not controlled with medicines or lifestyle changes. ??? You are having trouble swallowing. ??? You have coughing or wheezing that will not go away. Get help right away if: ??? Your pain is getting worse. ??? Your pain spreads to your arms, neck, jaw, teeth, or back. ??? You have shortness of breath. ??? You sweat for no reason. ??? You feel sick to your stomach (nauseous) or you vomit. ??? You vomit blood. ??? You have bright red blood in your stools. ??? You have black, tarry stools. This information is not intended to replace advice given to you by your health care provider. Make sure you discuss any questions you have with your health care provider. Document Revised: 02/15/2018 Document Reviewed: 10/08/2017 [employer] Patient Education ? 2020 [place]. Gastrointestinal Bleeding Gastrointestinal (GI) bleeding is bleeding somewhere along the path that food travels through the body (digestive tract). This path is anywhere between the mouth and the opening of the butt (anus). You may have blood in your poop (stool) or have black poop. If you throw up (vomit), there may be blood in it. This condition can be mild, serious, or even life-threatening. If you have a lot of bleeding, you may need to stay in the hospital. What are the causes? This condition may be caused by: ??? Irritation and swelling of the esophagus (esophagitis). The esophagus is part of the body that moves food from your mouth to your stomach. ??? Swollen veins in the butt (hemorrhoids). ??? Areas of painful tearing in the opening of the butt (anal fissures). These are often caused by passing hard poop. ??? Pouches that form on the colon over time (diverticulosis). ??? Irritation and swelling (diverticulitis) in areas where pouches have formed on the colon. ??? Growths (polyps) or cancer. Colon cancer often starts out as growths that are not cancer. ??? Irritation of the stomach lining (gastritis). ??? Sores (ulcers) in the stomach. What increases the risk? You are more likely to develop this condition if you: ??? Have a certain type of infection in your stomach (Helicobacter pylori infection). ??? Take certain medicines. ??? Smoke. ??? Drink alcohol. What are the signs or symptoms? Common symptoms of this condition include: ??? Throwing up (vomiting) material that has bright red blood in it. It may look like coffee grounds. ??? Changes in your poop. The poop may: ? Have red blood in it. ? Be black, look like tar, and smell stronger than normal. ? Be red. ??? Pain or cramping in the belly (abdomen). How is this treated? Treatment for this condition depends on the cause of the bleeding. For example: ??? Sometimes, the bleeding can be stopped during a procedure that is done to find the problem (endoscopy or colonoscopy). ??? Medicines can be used to: ? Help control irritation, swelling, or infection. ? Reduce acid in your stomach. ??? Certain problems can be treated with: ? Creams. ? Medicines that are put in the butt (suppositories). ? Warm baths. ??? Surgery is sometimes needed. ??? If you lose a lot of blood, you may need a blood transfusion. If bleeding is mild, you may be allowed to go home. If there is a lot of bleeding, you will need to stay in the hospital. Follow these instructions at home: ??? Take pnyt-axp-aeggpcn and prescription medicines only as told by your doctor. ??? Eat foods that have a lot of fiber in them. These foods include beans, whole grains, and fresh fruits and vegetables. You can also try eating 1?3 prunes each day. ??? Drink enough fluid to keep your pee (urine) pale yellow. ??? Keep all follow-up visits as told by your doctor. This is important. Contact a doctor if: ??? Your symptoms do not get better. Get help right away if: ??? Your bleeding does not stop. ??? You feel dizzy or you pass out (faint). ??? You feel weak. ??? You have very bad cramps in your back or belly. ??? You pass large clumps of blood (clots) in your poop. ??? Your symptoms are getting worse. ??? You have chest pain or fast heartbeats. Summary ??? GI bleeding is bleeding somewhere along the path that food travels through the body (digestive tract). ??? This bleeding can be caused by many things. Treatment depends on the cause of the bleeding. ??? Take medicines only as told by your doctor. ??? Keep all follow-up visits as told by your doctor. This is important. This information is not intended to replace advice given to you by your health care provider. Make sure you discuss any questions you have with your health care provider. Document Revised: 10/16/2018 Document Reviewed: 10/16/2018 [employer] Patient Education ? 2020 [employer]. Hematology Anemia Anemia is a condition in which you do not have enough red blood cells or hemoglobin. Hemoglobin is a substance in red blood cells that carries oxygen. When you do not have enough red blood cells or hemoglobin (are anemic), your body cannot get enough oxygen and your organs may not work properly. As a result, you may feel very tired or have other problems. What are the causes? Common causes of anemia include: ??? Excessive bleeding. Anemia can be caused by excessive bleeding inside or outside the body, including bleeding from the intestine or from periods in women. ??? Poor nutrition. ??? Long-lasting (chronic) kidney, thyroid, and liver disease. ??? Bone marrow disorders. ??? Cancer and treatments for cancer. ??? HIV (human immunodeficiency virus) and AIDS (acquired immunodeficiency syndrome). ??? Treatments for HIV and AIDS. ??? Spleen problems. ??? Blood disorders. ??? Infections, medicines, and autoimmune disorders that destroy red blood cells. What are the signs or symptoms? Symptoms of this condition include: ??? Minor weakness. ??? Dizziness. ??? Headache. ??? Feeling heartbeats that are irregular or faster than normal (palpitations). ??? Shortness of breath, especially with exercise. ??? Paleness. ??? Cold sensitivity. ??? Indigestion. ??? Nausea. ??? Difficulty sleeping. ??? Difficulty concentrating. Symptoms may occur suddenly or develop slowly. If your anemia is mild, you may not have symptoms. How is this diagnosed? This condition is diagnosed based on: ??? Blood tests. ??? Your medical history. ??? A physical exam. ??? Bone marrow biopsy. Your health care provider may also check your stool (feces) for blood and may do additional testing to look for the cause of your bleeding. You may also have other tests, including: ??? Imaging tests, such as a CT scan or MRI. ??? Endoscopy. ??? Colonoscopy. How is this treated? Treatment for this condition depends on the cause. If you continue to lose a lot of blood, you may need to be treated at a hospital. Treatment may include: ??? Taking supplements of iron, vitamin B12, or folic acid. ??? Taking a hormone medicine (erythropoietin) that can help to stimulate red blood cell growth. ??? Having a blood transfusion. This may be needed if you lose a lot of blood. ??? Making changes to your diet. ??? Having surgery to remove your spleen. Follow these instructions at home: ??? Take tjdf-sye-fjpbnsx and prescription medicines only as told by your health care provider. ??? Take supplements only as told by your health care provider. ??? Follow any diet instructions that you were given. ??? Keep all follow-up visits as told by your health care provider. This is important. Contact a health care provider if: ??? You develop new bleeding anywhere in the body. Get help right away if: ??? You are very weak. ??? You are short of breath. ??? You have pain in your abdomen or chest. ??? You are dizzy or feel faint. ??? You have trouble concentrating. ??? You have bloody or black, tarry stools. ??? You vomit repeatedly or you vomit up blood. Summary ??? Anemia is a condition in which you do not have enough red blood cells or enough of a substance in your red blood cells that carries oxygen (hemoglobin). ??? Symptoms may occur suddenly or develop slowly. ??? If your anemia is mild, you may not have symptoms. ??? This condition is diagnosed with blood tests as well as a medical history and physical exam. Other tests may be needed. ??? Treatment for this condition depends on the cause of the anemia. This information is not intended to replace advice given to you by your health care provider. Make sure you discuss any questions you have with your health care provider. Document Revised: 02/15/2018 Document Reviewed: 04/06/2017 [employer] Patient Education ? 2020 [employer] documented in this encounter Plan of Treatment Not on file documented as of this encounter Visit Diagnoses Not on filedocumented in this encounter
--- OUTSIDE RECORDS SUMMARY | 2025-02-20 18:46 | XMS_ITS | Encounter Summary ---
Author Organization [employer] ([place], [place], [place], [place], [place]) Address [address] [place] [id number] Care Team Providers Care Track Announcer Name Role Phone Unavailable Primary Care Provider Unavailabl e Encounter Details Date Type Department Care Team (Late st Contact Info) Description 09/21/2020 Transcribed Document [facility] [place] Medicine [address] [place] [address] ProviderShannan MD [address] [place] [address] Social History Tobacco Use Types Packs/Day Years Used Date Smoking Tobacco: Never Assessed Comments Unknown Sex and Gender Information Value Date Recorded Sex Assigned at Not on file Legal Sex Female 7:22 PM CDT Gender Identity Not on file Sexual Orientation Not on file documented as of this encounter Miscellaneous Notes * [employer] Conversion Note - Historical ProviderMD - 09/21/2020 5:00 PM CDT Chart Check - Review Order Profile Entered On: 09/21/2020 15:05 EDT Performed On: 09/21/2020 17:00 EDT by Ruma Fish Rn Chart Check [employer] Initiated/Discontinued as Appropriate : Yes All Active Orders Reviewed : Yes Ruma Fish Rn - 09/21/2020 15:05 EDT Electronically signed by [facility] Conversion Precipitate Washer Cerner at 07/05/2022 11:55 PM CDT documented in this encounter Plan of Treatment Not on file documented as of this encounter Visit Diagnoses Not on filedocumented in this encounter
--- OUTSIDE RECORDS SUMMARY | 2025-02-20 18:46 | XMS_ITS | Encounter Summary ---
Author Organization [employer] ([place], [place], [place], [place], [place]) Address [address] [place] [address] Care Team Providers Care Desk Maker Name Role Phone Unavailable Primary Care Provider Unavailabl e Encounter Details Date Type Department Care Team (Late st Contact Info) Description 09/21/2020 Transcribed Document [facility] [place] Family Medicine [address] [place] [address] ProviderShannan MD [address] [place] [address] Social History Tobacco Use Types Packs/Day Years Used Date Smoking Tobacco: Never Assessed Comments Unknown Sex and Gender Information Value Date Recorded Sex Assigned at Not on file Legal Sex Female 7:22 PM CDT Gender Identity Not on file Sexual Orientation Not on file documented as of this encounter Miscellaneous Notes * Cerner Conversion Note - Shannan ProviderMD - 09/21/2020 2:39 PM CDT Initial Discharge Planning Entered On: 09/21/2020 14:42 EDT Performed On: 09/21/2020 14:39 EDT by FAISAL PONCE Rn-Stenciling Machine Tender Initial Assessment I Previously Documented Living Environment : No qualifying data available. Living Situation : Home Patient Lives With : Alone Is the Patient a Caregiver at Home? : No Emergency Contact #1 : Christiano White Emergency Contact #1 Emergency Contact #1 Relationship : Son Emergency Contact #2 : Phyllis Gregorio Emergency Contact #2 Emergency Contact #2 Relationship : Daughter Enter Doctors Name : Hawk Davis Does Patient have PCP Listed? : Yes Medical Durable Power of Drug Abuse Treatment Specialist Name : Christiano White/[facility] to provide copy Legal Guardian : No Is Guardianship Needed : No FAISAL PONCE Rn-Stenciling Machine Tender - 09/21/2020 14:39 EDT Initial Assessment II Sensory and Motor Deficits : None Current Home Treatments and Equipment : None FAISAL PONCE Rn-Stenciling Machine Tender - 09/21/2020 14:39 EDT Discharge Needs I Anticipated Discharge Date : 09/22/2020 EDT Anticipated Discharge To, CM : Home with family care Current Home Treatment/Equipment : Current Home Treatment/Equipment No qualifying data available. Post Acute/Home Treatments : None Documentation Status Complete : Yes FAISAL PONCE Rn-Stenciling Machine Tender - 09/21/2020 14:39 EDT Discharge Needs II Professional Skilled Services : Professional Skilled Services No qualifying data available. Needs Assistance with Transportation : No Discharge Options Discussed with Patient : Discharge transportation, DME FAISAL PONCE Rn-Stenciling Machine Tender - 09/21/2020 14:39 EDT Narrative Note Narrative Note : Admission Melena/GI bleed; MRR; BOOST 4 Hx Hypertension, GERD, Anemia, Hiatal Hernia RA; IV Pantoprazole - EGD planned today Met pt - awake/alert in bed; daughter Phyllis @ bedside. Pt lives alone; PLOF independent, drives, no hx of home health or short-term rehab. Pt states she has an AD - son Christiano White (senior firmware engineer) is 1st HCS and dtr Phyllis Darline is 2d - pt's daughter will plan to bring copy to the hospital. FAISAL PONCE Rn-Stenciling Machine Tender - 09/21/2020 14:39 EDT documented in this encounter Plan of Treatment Not on file documented as of this encounter Visit Diagnoses Not on filedocumented in this encounter
--- OUTSIDE RECORDS SUMMARY | 2025-02-20 18:46 | XMS_ITS | Encounter Summary ---
Author Organization [employer] ([place], [place], [place], [place], [place]) Address [address] [place] [address] Care Team Providers Care Want Ad Receiver Name Role Phone Unavailable Primary Care Provider Unavailabl e Encounter Details Date Type Department Care Team (Late st Contact Info) Description 09/23/2020 Transcribed Document [facility] [place] Family Medicine [address] [place] [address] ProviderShannan MD [address] [place] [address] Social History Tobacco Use Types Packs/Day Years Used Date Smoking Tobacco: Never Assessed Comments Unknown Sex and Gender Information Value Date Recorded Sex Assigned at Not on file Legal Sex Female 7:22 PM CDT Gender Identity Not on file Sexual Orientation Not on file documented as of this encounter Miscellaneous Notes * Cerner Conversion Note - Historical ProviderMD - 09/23/2020 12:07 PM CDT Nursing Discharge Summary Entered On: 09/23/2020 12:08 EDT Performed On: 09/23/2020 12:07 EDT by Petrona Rodriguez Discharge Documentation Discharge Date/Time : 09/23/2020 12:35 EDT Accompanied By, Discharge : Daughter IV Discontinued : No IV Therapy Comment : No IV Personal Belongings With Patient : Yes Pt's Own Supply of Medications Returned : No patient supply of medications to return Prescriptions Given to Patient : Electronically sent Medications Given to Patient : No Jayesh Matos, RN-TRAVELER - 09/23/2020 12:40 EDT Patient Disposition, General : Discharge Discharge To : Home with ambulatory/outpatient follow-up Mode Of Departure, General Discharge : Private vehicle Education Comment : POC, pain mgt, and fall prevention Petrona Rodriguez - 09/23/2020 12:07 EDT Electronically signed by [facility] [place] [facility] Conversion Bush Regenerator Cerner at 07/05/2022 11:39 PM CDT documented in this encounter Plan of Treatment Not on file documented as of this encounter Visit Diagnoses Not on filedocumented in this encounter
--- OUTSIDE RECORDS SUMMARY | 2025-02-20 18:46 | XMS_ITS | Encounter Summary ---
Author Organization [employer] ([place], [place], [place], [place], [place]) Address [address] [place] [id number] Care Team Providers Care Asphalt Tile Floor Layer Name Role Phone Unavailable Primary Care Provider Unavailabl e Encounter Details Date Type Department Care Team (Late st Contact Info) Description 09/22/2020 Transcribed Document [facility] [place] Family Medicine [address] [place] [address] ProviderShannan MD [address] [place] [address] Social History Tobacco Use Types Packs/Day Years Used Date Smoking Tobacco: Never Assessed Comments Unknown Sex and Gender Information Value Date Recorded Sex Assigned at Not on file Legal Sex Female 7:22 PM CDT Gender Identity Not on file Sexual Orientation Not on file documented as of this encounter Miscellaneous Notes * Cerner Conversion Note - Shannan ProviderMD - 09/22/2020 5:00 AM CDT Chart Check - Review Order Profile Entered On: 09/22/2020 5:20 EDT Performed On: 09/22/2020 5:00 EDT by Alyce Parker Rn Chart Check Powerplans Initiated/Discontinued as Appropriate : Yes All Active Orders Reviewed : Yes Alyce Parker Rn - 09/22/2020 5:20 EDT Electronically signed by [facility] Conversion Sound Effects Person Cerner at 07/05/2022 11:52 PM CDT documented in this encounter Plan of Treatment Not on file documented as of this encounter Visit Diagnoses Not on filedocumented in this encounter
--- OUTSIDE RECORDS SUMMARY | 2025-02-20 18:46 | XMS_ITS | Encounter Summary ---
Author Organization [employer] ([place], [place], [place], [place], [place]) Address [address] [place] [address] Care Team Providers Care Nursing Specialist Name Role Phone Unavailable Primary Care Provider Unavailabl e Encounter Details Date Type Department Care Team (Late st Contact Info) Description 09/23/2020 Transcribed Document [facility] Radiology [address] [place] [address] Messi Mcgarry MD [address] [place] [address] [address] [place] [id number] Social History Tobacco Use Types Packs/Day Years Used Date Smoking Tobacco: Never Assessed Comments Unknown Sex and Gender Information Value Date Recorded Sex Assigned at Not on file Legal Sex Female 7:22 PM CDT Gender Identity Not on file Sexual Orientation Not on file documented as of this encounter Miscellaneous Notes * Cerner Conversion Note - Messi Mcgarry MD - 09/23/2020 11:16 AM EDT Patient: ABBEY MEADE Age: 80 years Sex: Female : 1940 Associated Diagnoses: None Author: MESSI MCGARRY MD-INT Subjective Admit information: Tx From: [facility] ER . Source of history: Self, Family member. Present at bedside: Family member. PCP: Dr. Andrea DOA: 09/20/2020 CODE STATUS: Full code Referral source: Emergency department. Chief Complaint 1. Severe weakness 2. Ongoing melena 3. Exertional dyspnea History of Present Illness This is 80-year-old [facility] with above-mentioned complaints. According to patient she has been diagnosed with anemia few years back but they were unable to found an acute cause. She underwent colonoscopy few years back and later on had an EGD which did show some erosions and hiatal hernia. Patient was in her usual state of health when he started developing generalized weakness. Started having some melanotic stool which gradually getting worse and more darker. In the last 24 hours she had almost 70 stools. She did not have any vomiting or hematemesis. She did not see any bright red blood per rectum. She started developing some shortness of breath and exertional dyspnea which is gradually worsening. According to patient she was unable to walk few steps without getting dizzy and weak. She went to the [facility] ER where work-up revealed hemoglobin of 7.8 which has dropped from 12 a month ago. I do not have any of these records it is all by talking to the ER physician. Patient was sent in here for evaluation as they do not have a GI coverage. Dr. Turk is aware of the patient transfer as he was on phone while I was talking to the ER physician. Right now patient is laying on bed she looks quite pale she has her son at bedside. She did not receive any blood at the ER as type and crossmatch is ongoing. Patient denies any abdominal pain. Patient denies any chest pain. There is no resting dyspnea. She found to be significantly tachycardic with a heart rate is in 120s. Blood pressure seems a stable. Patient denies any use of NSAIDs or aspirins lately, she has been on Percocet for her back pain. There is no history of fever/Chills. She has ongoing constipation. Patient did receive her Covid vaccine CONSULTS: Gastroenterology WORKUP / PROCEDURES: Operation: Dated 09/21/2020 Esophagogastroduodenoscopy, Gastric Biopsy, Indication for Surgery *Preoperative Diagnosis Gi BLEED *Postoperative Diagnosis Hiatal hernia, oniel erosions, camerons uilcer *Surgeon(s) CAROL MOORE MD-GAE (Surgeon/Proceduralist, [facility]) *Findings Esophagus was normal except for a distal ring. There is a large 7 cm hiatal hernia with Camerons ulcers along the hernia mucosa that are the apparent source of bleeding. Biopsies were taken. Antral gastritis Duodenum normal. We will keep her on a PPI and avoid aspirin and NSAID's. Repeat EGD in 2 months and if not healed she will need hiatal hernia repair. See full note in chart. HOSPITAL FOLLOWUP: 09/21/2020 Patient looks and feels better today. She received blood transfusion yesterday and hemoglobin is stabilizing. Denies chest pain or shortness of breath. Denies abdominal pain. No nausea vomiting. Weakness is overall improving. 09/22/2020 Patient is awake and alert. Resting in bed, looks comfortable. Hemodynamically stable. Hemoglobin stabilizes around 8. Underwent EGD yesterday as reported above. She is now tolerating diet. 09/23/2020 Patient is resting in bed. Looks comfortable. Hemodynamically stable. Came out of ICU. H&H and BP remained stable. No distress noted. Health Status Allergies: Allergic Reactions (Selected) Severity Not Documented Haldol- No reactions were documented. Current medications: (Selected) Inpatient Medications Ordered ALPRAZolam: 0.5 mg, Oral, At Bedtime, PRN: Sleep DuoNeb 0.5 mg-2.5 mg/3 mL inhalation solution: 3 mL, Nebulized Inhalation, RT_Q6H, PRN: Shortness of Breath Lexapro: 20 mg, Oral, Daily Lipitor: 20 mg, Oral, At Bedtime Maxalt: 10 mg, Oral, BID, PRN: Migraine Headache Percocet 5/325: 1.5 Tab, Oral, TID, PRN: Pain (Moderate 4-6) SEROquel: 200 mg, Oral, At Bedtime Tylenol: 650 mg, Oral, Q4H, PRN: Pain (Mild 1-3) Zofran: 4 mg, IV Push, Q4H, PRN: Nausea calcium gluconate + Sodium Chloride 0.9% intravenous solution 100 mL: 2 Gram, 20 mL, 120 mL/Hr, IV Piggyback, Daily, PRN: Other (See Comment) calcium gluconate + Sodium Chloride 0.9% intravenous solution 100 mL: 2 Gram, 20 mL, 120 mL/Hr, IV Piggyback, Q12H, PRN: Other (See Comment) calcium gluconate: 1 Gram, 10 mL, 60 mL/Hr, IV Piggyback, Daily, PRN: Other (See Comment) magnesium sulfate: 2 Gram, 50 mL, 25 mL/Hr, IV Piggyback, Daily, PRN: Other (See Comment) magnesium sulfate: 2 Gram, 50 mL, 25 mL/Hr, IV Piggyback, Q2H, PRN: Other (See Comment) pantoprazole: 40 mg, Oral, BID potassium chloride 10 mEq/50 mL intravenous solution: 10 mEq, 50 mL, 50 mL/Hr, IV Piggyback, Q1H, PRN: Other (See Comment) potassium chloride 20 mEq oral tablet, extended release: 20 mEq, 1 Tab, Oral, Q2H, PRN: Other (See Comment) potassium chloride 20 mEq oral tablet, extended release: 60 mEq, 3 Tab, Oral, Q2H, PRN: Other (See Comment) propranolol: 40 mg, Oral, BID sodium phosphate: 15 mMole, 5 mL, 50 mL/Hr, IV Piggyback, Daily, PRN: Other (See Comment) sodium phosphate: 15 mMole, 5 mL, 50 mL/Hr, IV Piggyback, Q6H, PRN: Other (See Comment) Documented Medications Documented ALPRAZolam 1 mg oral tablet: 1 Tab, Oral, BID, PRN: for anxiety, 0 Refill(s) QUEtiapine 200 mg oral tablet: 1 Tab, Oral, At Bedtime, 0 Refill(s) acetaminophen-oxyCODONE 325 mg-7.5 mg oral tablet: 1 Tab, Oral, TID, PRN: for pain, 0 Refill(s) amLODIPine 5 mg oral tablet: 1 Tab, Oral, Daily, 0 Refill(s) escitalopram 20 mg oral tablet: 1 Tab, Oral, Daily, 0 Refill(s) ferrous gluconate 324 mg (38 mg elemental iron) oral tablet: 1 Tab, Oral, Daily, 0 Refill(s) omeprazole 20 mg oral delayed release capsule: 1 Cap, Oral, BID, 0 Refill(s) propranolol 40 mg oral tablet: 1 Tab, Oral, BID, 0 Refill(s) rizatriptan 10 mg oral tablet, disintegratin Tab, Oral, Daily, may repeat dose once in 2 hours, PRN: Migraine Headache, 0 Refill(s) simvastatin 40 mg oral tablet: 1 Tab, Oral, At Bedtime, 0 Refill(s), Home Medications (10) Active acetaminophen-oxyCODONE 325 mg-7.5 mg oral tablet 1 Tab, PRN, Oral, TID ALPRAZolam 1 mg oral tablet 1 mg = 1 Tab, PRN, Oral, BID amLODIPine 5 mg oral tablet 5 mg = 1 Tab, Oral, Daily escitalopram 20 mg oral tablet 20 mg = 1 Tab, Oral, Daily ferrous gluconate 324 mg (38 mg elemental iron) oral tablet 324 mg = 1 Tab, Oral, Daily omeprazole 20 mg oral delayed release capsule 20 mg = 1 Cap, Oral, BID propranolol 40 mg oral tablet 40 mg = 1 Tab, Oral, BID QUEtiapine 200 mg oral tablet 200 mg = 1 Tab, Oral, At Bedtime rizatriptan 10 mg oral tablet, disintegrating 10 mg = 1 Tab, PRN, Oral, Daily simvastatin 40 mg oral tablet 40 mg = 1 Tab, Oral, At Bedtime Problem list: Active Problems (6) At risk for sleep apnea GERD (gastroesophageal reflux disease) GI bleed Hiatal hernia Hyperlipidemia Hypertension Objective VS/Measurements Vitals Signs (last 24 hrs) Last Charted Minimum Maximum Temp 98.2 (SEP 23 06:05) 98.2 (SEP 23:) 98.7 (SEP 22:) Apical HR 94 (SEP 23 08:35) 84 (SEP 22 20:40) 94 (SEP 23 08:35) Mon HR 94 (SEP 23 06:05) 78 (SEP 22 16:09) 94 (SEP 23 03:20) Resp Rate 18 (SEP 23 06:05) 16 (SEP 23 03:20) 18 (SEP 22 23:19) SBP 136 (SEP 23 06:05) 125 (SEP 23 03:20) H 147 (SEP 22 16:09) DBP L 54 (SEP 23 06:05) L 54 (SEP 23 06:05) H 117 (SEP 22 16:) MAP 64 (SEP 23 06:05) 64 (SEP 23 06:05) 128 (SEP 22 16:09) SpO2 95 (SEP 23 06:05) 95 (SEP 23 06:05) 99 (SEP 22 23:19) General: Alert and oriented, No acute distress. Eye: Pupils are equal, round and reactive to light. HENT: Normocephalic, Oral mucosa is moist. Neck: Supple, Non-tender, No carotid bruit. Respiratory: Lungs are clear to auscultation, Respirations are non-labored, Breath sounds are equal. Cardiovascular: Normal rate, Regular rhythm. Gastrointestinal: Soft, Non-tender, Normal bowel sounds. Musculoskeletal: Normal range of motion. Integumentary: Warm. Neurologic: Alert, Oriented, Normal motor function, No focal deficits. Psychiatric: Cooperative. Results Review No Radiology Results Found SEP 23 06:16 142 111 11 / H 122 3.5 27 L 0.50 \ SEP 23 06:16 \ L 9.1 / 4.6 195 / L 28.6 \ Impression and Plan Assessment and Plan: Diagnosis. DIAGNOSIS: Acute GI bleed with melanotic stools, present on admission. Status post EGD as outlined above. With gastritis and Oniel ulcers with hiatal hernia. Acute blood loss anemia, due to above. Received blood transfusion. H&H seems a stabilized. Tachycardia, due to above. Resolved Essential hypertension. Stable. Chronic back pain History of hiatal hernia PLAN:\.brTH is stabilized. GI recommending 2-month follow-up and patient will make an appointment she fully understands it. Patient can be discharged today. documented in this encounter Plan of Treatment Not on file documented as of this encounter Visit Diagnoses Not on filedocumented in this encounter
--- OUTSIDE RECORDS SUMMARY | 2025-02-20 18:46 | XMS_ITS | Encounter Summary ---
Author Organization [employer] ([place], [place], [place], [place], [place]) Address [address] [place] [address] Care Team Providers Care Nursing Program Chair Name Role Phone Unavailable Primary Care Provider Unavailabl e Encounter Details Date Type Department Care Team (Late st Contact Info) Description 09/22/2020 Transcribed Document [facility] [place] Medicine [address] [place] [address] ProviderShannan MD [address] [place] [address] Social History Tobacco Use Types Packs/Day Years Used Date Smoking Tobacco: Never Assessed Comments Unknown Sex and Gender Information Value Date Recorded Sex Assigned at Not on file Legal Sex Female 7:22 PM CDT Gender Identity Not on file Sexual Orientation Not on file documented as of this encounter Miscellaneous Notes * Cerner Conversion Note - Shannan Nugent MD - 09/22/2020 9:56 AM CDT Patient: ABBEY MEADE Age: 80 Years Sex: Female : 1940 Subjective s/p EGD yesterday, findings noted below. Hgb stable at 8.0 this morning. Patient doing well. no complaints. eager to go home. tolerating diet. *Findings Esophagus was normal except for a [...] hernia repair. See full note in chart. Review of Systems () gen: no fever, chills lungs: no SOA, no cough cardiac: no chest pain, no edema Physical Exam (03/24/11) location, quality, severity, duration, timing, context, modifeirs, associated signs/symptoms gen: NAD, appears comfortable lungs: BS=B, nonlabored respirations on room air cardiac: regular rate and rhythm abd: soft, nontender, bowel sounds present Vitals & Measurements T: 37.3 ??C TMIN: 36.8 ??C TMAX: 37.3 ??C HR: 89 RR: 13 BP: 149/64 SpO2: 96% Assessment/Plan () N+W/U = 4; New = 3; Worsen = 2; Stable = 1; Improved = 1; Self-limited = 1 Acute blood loss anemia with melena History of CHAGO requiring oral and IV iron 09/21: No NSAID, aspirin use. CHAGO in the past was thought likely from what sounds like Oniel erosions. Will plan for EGD today. No evidence of CHAGO based on most recent labs-- has been on iron at home. EGD orders placed, I have notified endoscopy. Monitor H/H, blood transfusion as needed. Covid negative at OSH 09/22: s/p EGD yesterday, Oniel erosions likely cause of anemia. Hgb stable at 8.0 this morning. Daily PPI and avoid aspirin and NSAID's. Will need repeat EGD in 2 months and if not healed she will need hiatal hernia repair. Patient likely able to d/c home today from GI standpoint in hgb remains stable. patient states she usually sees Dr. Mullins and is not sure if she wants to have him repeat her EGD or see us. she will call our office to schedule repeat EGD if she decides to have us do it. Progress note above was performed by Alannah Cartagena PA-C and Dr. Kendall. Allergies Haldol Medications Inpatient ALPRAZolam, 0.5 mg= 1 Tab, Oral, At Bedtime, PRN calcium gluconate calcium gluconate + Sodium Chloride 0.9% intravenous solution 100 mL calcium gluconate + Sodium Chloride 0.9% intravenous solution 100 mL DuoNeb 0.5 mg-2.5 mg/3 mL inhalation solution, 3 mL, Nebulized Inhalation , RT_Q6H, PRN Lexapro, 20 mg= 1 Tab, Oral, Daily Lipitor, 20 mg= 1 Tab, Oral, At Bedtime magnesium sulfate, 2 Gram= 50 mL, IV Piggyback, Daily, PRN magnesium sulfate, 2 Gram= 50 mL, IV Piggyback, Q2H, PRN Maxalt, 10 mg= 1 Tab, Oral, BID, PRN pantoprazole, 40 mg= 1 Tab, Oral, BID Percocet 5/325, 1.5 Tab, Oral, TID, PRN potassium chloride 10 mEq/50 mL intravenous solution, 10 mEq= 50 mL, IV Piggyback, Q1H, PRN potassium chloride 20 mEq oral tablet, extended release, 20 mEq= 1 Tab, Oral, Q2H, PRN potassium chloride 20 mEq oral tablet, extended release, 60 mEq= 3 Tab, Oral, Q2H, PRN propranolol, 40 mg= 2 Tab, Oral, BID SEROquel, 200 mg= 1 Tab, Oral, At Bedtime sodium phosphate sodium phosphate Tylenol, 650 mg= 2 Tab, Oral, Q4H, PRN Zofran, 4 mg= 2 mL, IV Push, Q4H, PRN Home acetaminophen-oxyCODONE 325 mg-7.5 mg oral tablet, 1 Tab, Oral, TID, PRN ALPRAZolam 1 mg oral tablet, 1 mg= 1 Tab, Oral, BID, PRN amLODIPine 5 mg oral tablet, 5 mg= 1 Tab, Oral, Daily escitalopram 20 mg oral tablet, 20 mg= 1 Tab, Oral, Daily ferrous gluconate 324 mg (38 mg elemental iron) oral tablet, 324 mg= 1 Tab, Oral, Daily omeprazole 20 mg oral delayed release capsule, 20 mg= 1 Cap, Oral, BID propranolol 40 mg oral tablet, 40 mg= 1 Tab, Oral, BID QUEtiapine 200 mg oral tablet, 200 mg= 1 Tab, Oral, At Bedtime rizatriptan 10 mg oral tablet, disintegrating, 10 mg= 1 Tab, Oral, Daily, PRN simvastatin 40 mg oral tablet, 40 mg= 1 Tab, Oral, At Bedtime Problem List/Past Medical History Ongoing At risk for sleep apnea GERD (gastroesophageal reflux disease) GI bleed Hiatal hernia Hyperlipidemia Hypertension Historical No qualifying data Lab Results SEP 22 06:03 141 111 7 / H 109 L 3.1 25 L 0.30 \ SEP 22 05:45 \ L 8.0 / 5.6 L 156 / L 25.1 \ documented in this encounter Plan of Treatment Not on file documented as of this encounter Visit Diagnoses Not on filedocumented in this encounter
--- OUTSIDE RECORDS SUMMARY | 2025-02-20 18:46 | XMS_ITS | Encounter Summary ---
Author Organization [employer] ([place], [place], [place], [place], [place]) Address [address] [place] [address] Care Team Providers Care Biomedical Engineer Name Role Phone Unavailable Primary Care Provider Unavailabl e Encounter Details Date Type Department Care Team (Late st Contact Info) Description 09/23/2020 Transcribed Document [facility] [place] [address] [place] [address] ProviderShannan MD [address] [place] [address] Social History Tobacco Use Types Packs/Day Years Used Date Smoking Tobacco: Never Assessed Comments Unknown Sex and Gender Information Value Date Recorded Sex Assigned at Not on file Legal Sex Female 7:22 PM CDT Gender Identity Not on file Sexual Orientation Not on file documented as of this encounter Miscellaneous Notes * [employer]ner Conversion Note - Shannan ProviderMD - 09/23/2020 5:00 AM CDT Chart Check - Review Order Profile Entered On: 09/23/2020 5:32 EDT Performed On: 09/23/2020 5:00 EDT by Yue Fuentes RN Chart Check Power[employer]ans Initiated/Discontinued as Appropriate : Yes All Active Orders Reviewed : Yes Yue Fuentes RN - 09/23/2020 5:32 EDT Electronically signed by [facility] Conversion Managed Care Analyst Cerner at 07/05/2022 11:48 PM CDT documented in this encounter Plan of Treatment Not on file documented as of this encounter Visit Diagnoses Not on filedocumented in this encounter
--- OUTSIDE RECORDS SUMMARY | 2025-02-20 18:46 | XMS_ITS | Encounter Summary ---
Author Organization [employer] ([place], [place], [place], [place], [place]) Address [address] [place] [address] Care Team Providers Care Rolled Gold Plater Name Role Phone Unavailable Primary Care Provider Unavailabl e Encounter Details Date Type Department Care Team (Late st Contact Info) Description 09/23/2020 Transcribed Document [facility] Family Medicine [address] [place] [address] ProviderShannan MD [address] [place] [address] Social History Tobacco Use Types Packs/Day Years Used Date Smoking Tobacco: Never Assessed Comments Unknown Sex and Gender Information Value Date Recorded Sex Assigned at Not on file Legal Sex Female 7:22 PM CDT Gender Identity Not on file Sexual Orientation Not on file documented as of this encounter Miscellaneous Notes * Cerner Conversion Note - Shannan Nugent MD - 09/23/2020 11:37 AM CDT [facility] [place] [address] ABBEY MEADE :1940 Visit Time:09/20/2020 Your Visit Summary Your Care Team Admitting Physician - GISEL WOLFF MD-INT Attending Physician - GISEL WOLFF MD-INT Your Diagnosis Gastrointestinal hemorrhage, unspecified, Gastrointestinal hemorrhage, unspecified Discharge Vitals Temperature 36.6 ??C Heart Rate (Monitored) 83 Respiratory Rate 16 Blood Pressure 135/98 What to do next Instructions From Your Care Team Diet after Discharge: Resume usual diet as tolerated, Activity after Discharge: As tolerated, Driving after Discharge: Do not drive until 24 hours after no longer taking pain medications May Return to Work/School: anytime Showering/Bathing: May shower, Notify Provider of: questions or concerns AVOID ASPIRIN AND NSAIDS (such as Aleve or Advil) Please STOP taking Omeprazole. You will take Protonix( Pantoprazole) instead Discharge Follow Up Instructions: Follow-Up Appointments Follow Up with MELINA MACKENZIE (SOPHIA MOORE When 09/30/2020 11:30 AM EDT Comments Appointment has been made Bring discharge instructions with you Bring Ins Card, Photo ID, Ins Co-pay Where: [address] [place] [id number]- Follow Up with CAROL MOORE MD-GAE When Within 2 months Comments Recommended EGD in 2 months. Call office to schedule appointment. Where: [address] [facility] [address] [place] [address]- Medications What How Much When Instructions Next Dose pantoprazole (pantoprazole 40 mg oral delayed release tablet) 1 Tablet(s) Oral Two Times A Day Pickup at Clinic [facility] 09/23/2020 PM ALPRAZolam (ALPRAZolam 1 mg oral tablet) 1 Tablet(s) Oral Two Times A Day as needed for for anxiety as needed QUEtiapine (QUEtiapine 200 mg oral tablet) 1 Tablet(s) Oral At Bedtime 09/23/2020 PM acetaminophen-oxyCODONE (acetaminophen-oxyCODONE 325 mg-7.5 mg oral tablet) 1 Tablet(s) Oral Three Times A Day as needed for for pain as needed amLODIPine (amLODIPine 5 mg oral tablet) 1 Tablet(s) Oral Every Day START TAKING ON Sunday09/25/2020 AM escitalopram (escitalopram 20 mg oral tablet) 1 Tablet(s) Oral Every Day 09/24/2020 AM ferrous gluconate (ferrous gluconate 324 mg (38 mg elemental iron) oral tablet) 1 Tablet(s) Oral Every Day 09/24/2020 AM propranolol (propranolol 40 mg oral tablet) 1 Tablet(s) Oral Two Times A Day 09/23/2020 PM simvastatin (simvastatin 40 mg oral tablet) 1 Tablet(s) Oral At Bedtime 09/23/2020 PM rizatriptan (rizatriptan 10 mg oral tablet, disintegrating) 1 Tablet(s) Oral Every Day as needed for Migraine Headache may repeat dose once in 2 hours as needed Pharmacy Information [facility] [place] [address] V[place] Singh [phone] Take your medications faithfully. Do NOT skip medication. Do NOT stop taking medications without the direction of a physician. Carry a list of your medications with you at all times, and take this medication list with you to your first follow up visit. Report any side effects. Avoid herbal remedies unless discussed with your physician. As part of your treatment plan, your physician may have prescribed a limited course of a controlled substance. This medication may be given to help people with moderate or severe pain or for other medical conditions, but there are risks involved with treatment. Common side effects may include nausea, constipation, drowsiness, sweating, itching, dry mouth, and rash. More serious side effects may include cognitive and motor impairment, like problems with thinking, concentrating, alertness, and movement (e.g. slowed reflexes), and driving and operating heavy machinery can be dangerous. It is important for you to talk to your physician if you have these side effects or questions. These controlled substances can produce physical dependence and be habit-forming if taken for an extended period of time, which means that the body has gotten used to them and may experience withdrawal symptoms if they are abruptly stopped. Withdrawal symptoms can include runny nose, sweating, goose bumps, diarrhea, abdominal cramping, rapid heartbeat, difficulty sleeping, and nervousness. Please dispose of unused and medications per your retail pharmacy guidance. Allergies Haldol Immunizations This Visit No Immunizations Found Stroke/TIA Instructions Individualized Stroke Risk Factors Individualized Stroke Risk Factors *Q: Hypertension/High blood pressure Stroke/TIA Signs/Symptoms to Report Immediately: Sudden onset difficulty speaking, Sudden onset difficulty understanding speech, Sudden onset change in vision, Sudden onset weakness particulary on one side of the body, Sudden onset numbness/tingling, Sudden severe headache, Sudden dizziness or trouble with gait, Call : EMS activation is crucial Mutually Agreed Upon Goals My LDL Level: My LDL Level: Education [employer] Anemia Anemia is a condition in which [...] Follow these instructions at home: ??? Take qfcd-not-mfujfup and prescription medicines only as told by [...] provider. Document Revised: 02/15/2018 Document Reviewed: 04/06/2017 [employer] Patient Education ?? 2020 [employer]. Peptic Ulcer A peptic ulcer is a [...] help quitting, ask your doctor. ??? Take hlhl-ssw-tgmvxaw and prescription medicines only as told by [...] provider. Document Revised: 09/10/2018 Document Reviewed: 09/10/2018 [employer] Patient Education ?? 2020 [employer]. Gastritis, Adult Gastritis is swelling (inflammation) of [...] these instructions at home: Medicines ??? Take rxcd-jgn-cjoycxi and prescription medicines only as told by [...] alcohol: ? Limit your use to: ? 0???1 drink a day for women. ? 0???2 drinks a day for men. ? Be aware of how much alcohol is in your drink. In the [place] one drink equals one 12 oz bottle of beer (355 mL), one 5 oz glass of wine (148 mL), or one 1?? oz glass of hard liquor (44 mL). [...] provider. Document Revised: 07/23/2018 Document Reviewed: 07/23/2018 [employer] Patient Education ?? 2020 [employer]. Hiatal Hernia A hiatal hernia occurs when [...] symptoms. ??? Medicines. These may include: ? Unjc-ekp-xhzwvde antacids. ? Medicines that make your stomach [...] ? Fatty foods, like fried foods. ? [place] fruits, like oranges or lemon. ? Other foods and drinks that contain acid, like orange juice or tomatoes. ? Spicy food. ? Chocolate. ??? Eat frequent small meals instead of three large meals a day. This helps prevent your stomach from getting too full. ? Eat slowly. ? Do not lie down right after eating. ? Do not eat 1???2 hours before bed. ??? Do not drink beverages with caffeine. These include cola, coffee, cocoa, and tea. ??? Do not drink alcohol. General instructions ??? Take hbmp-ohe-atjcebg and prescription medicines only as told by [...] provider. Document Revised: 02/15/2018 Document Reviewed: 10/08/2017 [employer] Patient Education ?? 2020 [employer]. Gastrointestinal Bleeding Gastrointestinal (GI) bleeding is bleeding [...] Follow these instructions at home: ??? Take znpv-tsf-eybjgqq and prescription medicines only as told by your doctor. ??? Eat foods that have a lot of fiber in them. These foods include beans, whole grains, and fresh fruits and vegetables. You can also try eating 1???3 prunes each day. ??? Drink enough fluid [...] provider. Document Revised: 10/16/2018 Document Reviewed: 10/16/2018 [employer] Patient Education ?? 2020 [employer]. pantoprazole (oral/injection) (shaver TOE pra zole) Protonix What is the most important information I should know about pantoprazole? Pantoprazole can cause kidney problems. Tell your doctor if you are urinating less than usual, or if you have blood in your urine. Diarrhea may be a sign of a new infection. Call your doctor if you have diarrhea that is watery or has blood in it. Pantoprazole may cause new or worsening symptoms of lupus. Tell your doctor if you have joint pain and a skin rash on your cheeks or arms that worsens in sunlight. You may be more likely to have a broken bone while taking this medicine mcc or more than once per day. What is pantoprazole? Pantoprazole is used to treat erosive esophagitis (damage to the esophagus from stomach acid caused by gastroesophageal reflux disease, or GERD) in adults and children who are at least 5 years old. Pantoprazole is usually given for up to 8 weeks at a time while your esophagus heals. Pantoprazole is also used to treat Mervin-Honeycutt syndrome and other conditions involving excess stomach acid. Pantoprazole is not for immediate relief of heartburn. Pantoprazole may also be used for purposes not listed in this medication guide. What should I discuss with my healthcare provider before using pantoprazole? Heartburn can mimic early symptoms of a heart attack. Get emergency medical help if you have chest pain that spreads to your jaw or shoulder and you feel anxious or light-headed. You should not use this medicine if: ?? you also take medicine that contains rilpivirine (Edurant, Complera, Juluca, Odefsey); ?? if you had breathing problems, kidney problems, or a severe allergic reaction after taking pantoprazole in the past; ?? you are allergic to pantoprazole or similar medicines (lansoprazole, omeprazole, Nexium, Prevacid, Prilosec, and others). Tell your doctor if you have ever had: ?? low levels of magnesium in your blood; ?? lupus; or ?? osteoporosis or low bone mineral density. You may be more likely to have a broken bone in your hip, wrist, or spine while taking a proton pump inhibitor long-term or more than once per day. Talk with your doctor about ways to keep your bones healthy. Tell your doctor if you are or . Pantoprazole is not approved for use by anyone younger than 5 years old. How should I use pantoprazole? Follow all directions on your prescription label and read all medication guides or instruction sheets. Use the medicine exactly as directed. Use the lowest dose for the shortest amount of time needed to treat your condition. Pantoprazole is taken by mouth (oral) or given as an infusion into a vein (injection). A healthcare provider may teach you how to properly use pantoprazole injection by yourself. Pantoprazole tablets are taken by mouth, with or without food. Pantoprazole oral granules should be taken 30 minutes before a meal. Do not crush, chew, or break the tablet. Swallow it whole. The oral granules should be mixed with applesauce or apple juice and given either by mouth or through a nasogastric (NG) tube. Read and carefully follow any Instructions for Use provided with your medicine. Ask your doctor or pharmacist if you do not understand these instructions. Use this medicine for the full prescribed length of time, even if your symptoms quickly improve. Call your doctor if your symptoms do not improve or if they get worse while you are using this medicine. This medicine can affect the results of certain medical tests. Tell any doctor who treats you that you are using pantoprazole. Pantoprazole may also affect a drug-screening urine test and you may have false results. Tell the laboratory staff that you use this medicine. Store this medicine at room temperature away from moisture, heat, and light. What happens if I miss a dose? Use the medicine as soon as you can, but skip the missed dose if it is almost time for your next dose. Do not use two doses at one time. What happens if I overdose? Seek emergency medical attention or call the Poison Help line at . What should I avoid while using pantoprazole? This medicine can cause diarrhea, which may be a sign of a new infection. If you have diarrhea that is watery or bloody, call your doctor. Do not use anti-diarrhea medicine unless your doctor tells you to. What are the possible side effects of pantoprazole? Get emergency medical help if you have signs of an allergic reaction: hives; difficulty breathing; swelling of your face, lips, tongue, or throat. Call your doctor at once if you have: ?? severe stomach pain, diarrhea that is watery or bloody; ?? sudden pain or trouble moving your hip, wrist, or back; ?? bruising or swelling where intravenous pantoprazole was injected; ?? kidney problems-- fever, rash, nausea, loss of appetite, joint pain, urinating less than usual, blood in your urine, weight gain; ?? low magnesium--dizziness, fast or irregular heart rate, tremors (shaking) or jerking muscle movements, feeling jittery, muscle cramps, muscle spasms in your hands and feet, cough or choking feeling; or ?? new or worsening symptoms of lupus--joint pain, and a skin rash on your cheeks or arms that worsens in sunlight. Taking pantoprazole long-term may cause you to develop stomach growths called fundic gland polyps. Talk with your doctor about this risk. If you use pantoprazole for longer than 3 years, you could develop a vitamin B-12 deficiency. Talk to your doctor about how to manage this condition if you develop it. Common side effects may include: ?? headache, dizziness; ?? stomach pain, gas, nausea, vomiting, diarrhea; ?? joint pain; or ?? fever, rash, or cold symptoms (most common in children). This is not a complete list of side effects and others may occur. Call your doctor for medical advice about side effects. You may report side effects to FDA at 1-022-KTI-6271. What other drugs will affect pantoprazole? Tell your doctor about all your other medicines, especially: ?? digoxin; ?? methotrexate; or ?? a diuretic or 'water pill.' This list is not complete. Other drugs may affect pantoprazole, including prescription and ytze-xeg-fhdcsfz medicines, vitamins, and herbal products. Not all possible drug interactions are listed here. Where can I get more information? Your pharmacist can provide more information about pantoprazole. Remember, keep this and all other medicines out of the reach of children, never share your medicines with others, and use this medication only for the indication prescribed. Every effort has been made to ensure that the information provided by [employer]. ('[employer]') is accurate, up-to-date, and complete, but no guarantee is made to that effect. Drug information contained herein may be time sensitive. [employer] information has been compiled for use by healthcare practitioners and consumers in the [place] and therefore [employer] does not warrant that uses outside of the [place] are appropriate, unless specifically indicated otherwise. [employer] drug information does not endorse drugs, diagnose patients or recommend therapy. [employer] drug information is an informational resource designed to assist licensed healthcare practitioners in caring for their patients and/or to serve consumers viewing this service as a supplement to, and not a substitute for, the expertise, skill, knowledge and judgment of healthcare practitioners. The absence of a warning for a given drug or drug combination in no way should be construed to indicate that the drug or drug combination is safe, effective or appropriate for any given patient. [employer] does not assume any responsibility for any aspect of healthcare administered with the aid of information [employer] provides. The information contained herein is not intended to cover all possible uses, directions, precautions, warnings, drug interactions, allergic reactions, or adverse effects. If you have questions about the drugs you are taking, check with your doctor, nurse or pharmacist. Copyright 5315-9749 [employer]. Version: 21.. Revision Date: 03/22/2020. Emergency Awareness and Preventative Care STROKE is an EMERGENCY Every Minute Counts Act FAST and Check for these signs: FACE Does the face look uneven? ARM Does one arm drift down? SPEECH Does their speech sound strange? TIME Call at any sign of stroke Stroke Risk Factors Atrial Fibrillation (irregular heartbeat) Diabetes Family history of stroke Heart Disease Heavy alcohol use High Blood Pressure High Cholesterol Physical inactivity and obesity Smoking Cigarette Smoking The facts are clear, cigarette smoking will shorten your life. Smoking can cause many illnesses along the way. As a healthcare provider, we recommend that you stop smoking. Assistance with quitting is available by contacting 4-393-TIRRNOW. This is a free resource providing counseling, support, and referral. Or you may contact your personal physician. [place] Suicide Prevention Lifeline: The National Suicide Prevention Lifeline is a national network of local crisis centers that provides free and confidential emotional support to people in suicidal crisis or emotional distress 24 hours a day, 7 days a week. Don't Wait! Stop a Heart Attack Before it Starts What is a heart attack? A heart attack is damage or to a part of the heart from severely decreased or lack of blood flow to the heart. Over time, arteries can become narrow from the buildup of fat and cholesterol, which is called plaque. The plaque can rupture causing a blood clot to form. When the blood clot forms, the artery can become severely narrowed or completely blocked, causing a heart attack. Heart attack is the leading cause of in the [place]. 85% of muscle damage occurs within the first 2 hours. Delay in the recognition of heart attack symptoms increases the chances of . Know the early symptoms of a heart attack: Nausea Feeling of fullness in chest Jaw Pain Pain that travels down one or both arms Fatigue/being tired Anxiety Back Pain Chest pressure, squeezing, or discomfort Shortness of breath Sweating, or a cold sweat Feeling of impending doom There are unusual signs of a heart attack, too! Women, the elderly, and diabetics may present with atypical symptoms: Fainting/dizziness Weakness Confusion Risk Factors for a Heart Attack Some heart disease risk factors, such as age and family history, cannot be changed. Others, like smoking and lack of exercise, can be changed. Smoking High Cholesterol High Blood Pressure Family History Obesity Age Gender (Males are at higher risk) Lack of Exercise Diabetes Diet Stress Excessive Alcohol Intake If you or someone you know is experiencing the signs and symptoms of a heart attack, DON???T DELAY. Call immediately and seek help. If someone collapses, perform CPR! Do not attempt to drive if you are having symptoms of heart attack. Hands-Only CPR Why Hands-Only CPR? Hands-Only CPR has been shown to be as effective as conventional CPR for cardiac arrests that occur outside of a hospital. Survival depends on immediately receiving CPR from someone nearby. How do you perform Hands-Only CPR? There are two easy steps: Call 9-1-1 if you see a teen or adult collapse Push hard and fast in the center of the chest at a beat of 100 beats per minute. Save a life! 4 WAYS TO GET AHEAD OF SEPSIS SEPSIS is a MEDICAL EMERGENCY. Time matters! Infections put you and your family at risk for a life-threatening condition called sepsis. Sepsis is the body's extreme response to an infection. It is life-threatening, and without timely treatment, sepsis can rapidly lead to tissue damage, organ failure, and . Sepsis happens when an infection you already have-in your skin, lungs, urinary tract or somewhere else-triggers a chain reaction throughout your body. 1 PREVENT INFECTIONS Take good care of chronic conditions. Talk to your doctor about getting the recommended vaccines. 2 PRACTICE GOOD HYGIENE Wash your hands frequently. Keep cuts or open sores clean and covered until they are healed. 3 KNOW THE SYMPTOMS Confusion or disorientation Shortness of breath High heart rate Fever, shivering, or feeling very cold Extreme pain or discomfort Clammy or sweaty skin 4 ACT FAST Get medical care IMMEDIATELY if you suspect sepsis or if you have an infection that is not getting better or is getting worse. To learn more about sepsis and how to prevent infections, visit www.cdc.gov/sepsis. Test Results Laboratory or Other Results This Visit (last charted value for your 09/20/2020 visit) Hematology 09/23/2020 6:16 AM WBC: 4.6 K/uL -- Normal range between ( 4.5 and 10.5 ) RBC: 3.17 Million/uL -- Normal range between ( 3.93 and 5.22 ) Hct: 28.6 % -- Normal range between ( 34.1 and 44.9 ) Hgb: 9.1 g/dL -- Normal range between ( 11.2 and 15.7 ) Platelet Count: 195 K/uL -- Normal range between ( 163 and 369 ) MCH: 28.7 pg -- Normal range between ( 25.6 and 32.2 ) MCHC: 31.8 Gram/dL -- Normal range between ( 32.2 and 36.5 ) MCV: 90.2 fL -- Normal range between ( 79.0 and 94.8 ) Slide Review: No Eos %: 1.7 % -- Normal range between ( 0.0 and 7.0 ) Benzie #: 0.47 K/uL -- Normal range between ( 0.16 and 1.00 ) Eos #: 0.08 x10(3)/uL -- Normal range between ( 0.00 and 0.80 ) Benzie %: 10.2 % -- Normal range between ( 3.0 and 9.0 ) Baso %: 0.2 % -- Normal range between ( 0.0 and 1.5 ) Baso #: 0.01 x10(3)/uL -- Normal range between ( 0.00 and 0.20 ) RDW: 15.8 % -- Normal range between ( 11.7 and 14.9 ) Neut %: 47.8 % -- Normal range between ( 34.0 and 71.0 ) Neut #: 2.20 K/uL -- Normal range between ( 1.56 and 6.13 ) Lymph %: 39.9 % -- Normal range between ( 19.3 and 53.1 ) Lymph #: 1.84 x10(3)/uL -- Normal range between ( 1.00 and 3.90 ) MPV: 11.0 fL -- Normal range between ( 9.4 and 12.4 ) IG#: 0.01 x10(3)/uL -- Normal range between ( 0.00 and 0.05 ) IG%: 0.20 % -- Normal range between ( 0.00 and 0.60 ) 09/22/2020 5:45 AM nRBC: 0.020 -- Normal range between ( 0.000 and 0.012 ) Urinalysis 09/21/2020 6:30 AM Urine Nitrite: Negative Urine Leukocyte Esterase: Small Urine Appearance: Clear Urine Glucose Dipstick: Negative Urine Blood Dipstick: Small Urine Urobilinogen Dipstick: 0.2 EU/dL Urine Protein Dipstick: Negative Ur Bacteria: 1+ Ur Squamous Epithelial Cells: 0-2 /HPF Urine Color: Yellow Ur WBC: 2-5 /HPF Urine Ketones Dipstick: Negative Ur Mucous: 1+ Urine pH Dipstick: 5.5 -- Normal range between ( 6.0 and 8.0 ) Urine Bilirubin Dipstick: Negative Urine Specific Ralph: 1.021 -- Normal range between ( 1.005 and 1.030 ) Urine Type.: U CleanCatch Urine Culture if Indicated: Not Indicated Blood Bank 09/20/2020 10:31 PM TRANSFUSED: TRANSFUSED 09/20/2020 6:51 PM RBC Product Ready: Done 09/20/2020 6:12 PM ABO/Rh (ECHO): A POS Antibody Screen: Negative ABSC Crossmatch: Computer XM OK 09/20/2020 5:59 PM # of Units:: 2 Units 09/20/2020 5:42 PM ABO/Rh Repeat: A POS General Chemistry 09/23/2020 6:16 AM Creatinine Level: 0.50 mg/dL -- Normal range between ( 0.55 and 1.02 ) Sodium Level: 142 mmol/L -- Normal range between ( 136 and 146 ) Potassium Level: 3.5 mmol/L -- Normal range between ( 3.5 and 5.1 ) Chloride Level: 111 mmol/L -- Normal range between ( 102 and 112 ) Carbon Dioxide Level: 27 mmol/L -- Normal range between ( 21 and 32 ) Anion Gap: 8 -- Normal range between ( 9 and 20 ) Bun/Creatinine: 22.0 -- Normal range between ( 8.0 and 20.0 ) Calcium Level: 8.9 mg/dL -- Normal range between ( 8.4 and 10.1 ) eGFR : >60 mL/min/1.73m2 eGFR NonAfrican: >60 mL/min/1.73m2 Glucose Level: 122 mg/dL -- Normal range between ( 74 and 106 ) Blood Urea Nitrogen: 11 mg/dL -- Normal range between ( 7 and 22 ) 09/21/2020 2:49 AM Bilirubin Total: 0.8 mg/dL -- Normal range between ( 0.2 and 1.2 ) A/G Ratio: 1.2 -- Normal range between ( 1.1 and 2.5 ) ALT: 20 Units/Liter -- Normal range between ( 13 and 56 ) AST: 21 Units/Liter -- Normal range between ( 5 and 37 ) Globulin: 2.1 Gram/dL -- Normal range between ( 1.5 and 4.5 ) Alk Phos: 45 Units/Liter -- Normal range between ( 27 and 136 ) Protein Total: 4.7 Gram/dL -- Normal range between ( 6.4 and 8.2 ) Albumin Level: 2.6 Gram/dL -- Normal range between ( 3.4 and 5.0 ) 09/20/2020 7:57 PM Lactic Acid Level: 1.4 mmol/L -- Normal range between ( 0.4 and 2.0 ) 09/20/2020 5:42 PM Magnesium Level: 1.8 mg/dL -- Normal range between ( 1.5 and 2.4 ) Phosphorus: 3.1 mg/dL -- Normal range between ( 2.5 and 4.9 ) Cardiac Specific Markers 09/20/2020 7:57 PM Troponin I Ultra: 0.019 ng/mL -- Normal range between ( 0.015 and 0.045 ) Coagulation 09/20/2020 5:42 PM INR: 1.1 -- Normal range between ( 0.9 and 1.2 ) PTT: 21.0 Second(s) -- Normal range between ( 22.0 and 33.0 ) PT: 11.0 Second(s) -- Normal range between ( 9.2 and 12.0 ) Endocrinology 09/20/2020 7:57 PM TSH: <0.005 mcInt Units/mL -- Normal range between ( 0.358 and 3.740 ) Iron Studies 09/20/2020 7:57 PM % Iron Saturation: 62.4 % -- Normal range between ( 15.0 and 55.0 ) Ferritin Level: 491.8 ng/mL -- Normal range between ( 8.0 and 252.0 ) TIBC: 255.0 mcg/dL -- Normal range between ( 250.0 and 450.0 ) Iron Level: 159 mcg/dL -- Normal range between ( 50 and 170 ) Patient Name:ZAMZAM MEADEN I have received and understand this information and was given the opportunity to ask questions. Patient/Federal Mediator Name: Patient/Federal Mediator Signature: Relationship to Patient: Clinician/Hospital Federal Mediator Signature: Date: documented in this encounter Plan of Treatment Not on file documented as of this encounter Visit Diagnoses Not on filedocumented in this encounter
--- OUTSIDE RECORDS SUMMARY | 2025-02-20 18:46 | XMS_ITS | Encounter Summary ---
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 Name Role Phone Unavailable Primary Care Provider Unavailabl e Encounter Details Date Type Department Care Team (Late st Contact Info) Description 09/23/2020 Transcribed Document [facility] [place] [address] [place] [address] ProviderShannan MD [address] [place] [address] Social History Tobacco Use Types [...] Nugent MD - 09/23/2020 10:58 AM CDT Stroke/Warfarin Instructions Entered On: 09/23/2020 10:58 EDT Performed On: 09/23/2020 10:58 EDT by Donna Anand RN Stroke/Warfarin Instructions Stroke/TIA Discharge Ins : Open Warfarin Discharge Ins : N/A Donna Anand RN - 09/23/2020 10:58 EDT Stroke/TIA Discharge Instructions Individualized Stroke Risk Factors *Q : Hypertension/High blood pressure Stroke Education Handouts Given *Q : Yes Donna Anand RN - 09/23/2020 10:58 EDT Stroke Education Materials Given-Grid Activation of EMS *Q : Verbalizes understanding Follow-up Care After Discharge *Q : Verbalizes understanding Medications prescribed at DC *Q : Verbalizes understanding Risk Factors for Stroke *Q : Verbalizes understanding Warning S&S of Stroke *Q : Verbalizes understanding Donna Anand RN - 09/23/2020 10:58 EDT Stroke/TIA Signs/Symptoms to Report Immediately : Sudden onset difficulty speaking, Sudden onset difficulty understanding speech, Sudden onset change in vision, Sudden onset weakness particulary on one side of the body, Sudden onset numbness/tingling, Sudden severe headache, Sudden dizziness or trouble with gait, Call : EMS activation is crucial My LDL Level: : LDL Level No qualifying data available. Donna Anand RN - 09/23/2020 10:58 EDT documented in this encounter Plan of Treatment Not on file documented as of this encounter Visit Diagnoses Not on filedocumented in this encounter
--- OUTSIDE RECORDS SUMMARY | 2025-02-20 18:46 | XMS_ITS | Encounter Summary ---
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 Name Role Phone Unavailable Primary Care Provider Unavailabl e Encounter Details Date Type Department Care Team (Late st Contact Info) Description 09/21/2020 Transcribed Document [facility] [place] [facility] [place] [address] ProviderShannan MD [address] [place] [address] Social History Tobacco Use Types Packs/Day Years Used Date Smoking Tobacco: Never Assessed Comments Unknown Sex and Gender Information Value Date Recorded Sex Assigned at Not on file Legal Sex Female 7:22 PM CDT Gender Identity Not on file Sexual Orientation Not on file documented as of this encounter Miscellaneous Notes * Cerner Conversion Note - Shannan Nugent MD - 09/21/2020 5:35 PM CDT Patient: ABBEY MEADE Age: 80 Years Sex: Female : 1940 *Operation Esophagogastroduodenoscopy, Gastric Biopsy, Anesthesia Type MARK MOSQUERA MD-ANS (Anesthesiologist of Record) MARK MOSQUERA MD-ANS (Anesthesiologist of Record) *Preoperative Diagnosis Gi BLEED *Postoperative Diagnosis Hiatal hernia, sundeep erosions, camerons uilcer *Surgeon(s) Primary Surgeon CAROL MOORE MD-GAE (Surgeon/Proceduralist, First) *Findings Esophagus was normal except for a [...] hernia repair. See full note in chart. Date of Service Date/Time of Service SN - Proc - Start Time: 09/21/20 17:13:00 (09/21/20 17:19:54) documented in this encounter Plan of Treatment Not on file documented as of this encounter Visit Diagnoses Not on filedocumented in this encounter
--- OUTSIDE RECORDS SUMMARY | 2025-02-20 18:46 | XMS_ITS | Clinical Summary ---
[facility] Address [address] [place] [address] Care Team Providers Care Patient Relations Liaison Name Role Phone Hawk Davis MD Primary Care Provider [phone] Allergies Active Allergy Reactions Criticality Noted Date Comments Haloperidol Unknown - High Severity 12/20/2020 Medications escitalopram (LEXAPRO) 20 MG tablet Take 1 tablet by mouth Daily. Active amLODIPine (NORVASC) 5 MG tablet Take 1 tablet by mouth Daily. Active QUEtiapine (SEROquel) 200 MG tablet Take 1 tablet by mouth Every Night. Active pantoprazole (PROTONIX) 40 MG EC tablet Take 1 tablet by mouth Daily. Active oxyCODONE-acet aminophen (PERCOCET) 7.5-325 MG per tabletIndicati ons:Right middle cerebral artery stroke Take 1 tablet by mouth 3 (Three) Times a Day As Needed for Moderate Pain . 1 Active atorvastatin (LIPITOR) 40 MG tablet Take 1 tablet by mouth Every Night. 1 Active clopidogrel (PLAVIX) 75 MG tablet Take 1 tablet by mouth Daily. 30 tablet 1 Active thiamine (VITAMIN B-1) 100 MG tablet tablet Take 1 tablet by mouth Daily. 1 Active ferrous sulfate 300 (60 Fe) MG/5ML syrup Take 5 mL by mouth Daily. 1 Active eszopiclone (LUNESTA) 3 MG tablet Take 1 tablet by mouth Every Night. Take immediately before bedtime Active carvedilol (COREG) 25 MG tablet Take 1 tablet by mouth 2 (Two) Times a Day With Meals. Active diphenoxylate- atropine (LOMOTIL) 2.5-0.025 MG per tablet Take 1 tablet by mouth 2 (Two) Times a Day As Needed for Diarrhea. Active vitamin B-6 (PYRIDOXINE) 50 MG tablet Take 1 tablet by mouth Daily. Active aspirin 81 MG chewable tablet Chew 1 tablet Daily. Active mirtazapine (Remeron) 15 MG tablet Take 1 tablet by mouth every night at bedtime. 01/27/20 Discontin ued(Stop Taking at Discharge ) propranolol (INDERAL) 40 MG tablet Take 1 tablet by mouth 2 (two) times a day. 01/27/20 Discontin ued(Stop Taking at Discharge ) ALPRAZolam (XANAX) 1 MG tablet Take 1 tablet by mouth 2 (Two) Times a Day As Needed. 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 Hypercholesteremia 04/26/2022 Hypertension 04/26/2022 PTSD (post-traumatic stress disorder) 04/26/2022 Multinodular goiter 04/26/2022 Lumbar neuralgia 04/26/2022 Hepatic cyst 08/03/2021 Hiatal hernia 06/10/2021 Overview (01/24/2025): Added automatically from request for surgery [id number] Hypokalemia 07/17/2014 Resolved Problems Problem Noted Date Diagnosed Date Resolved Date 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 Upper GI bleeding 12/20/2020 12/25/2020 Overview (12/20/2020): Added automatically from request for surgery [id number] Anemia, blood loss 12/20/2020 Overview (12/21/2020): Added automatically from request for surgery [id number] Encounters Date Type Department Care Team Description 01/24/2025 3:51 AM EST - 01/26/2025 3:14 PM [facility] Hospital Encounter [address] [place] [id number] Anup Daniel MD Shields, Daniel Alan, DO Cognitive communication deficit (Primary Dx); Memory deficit Discharge Disposition: Home or Self Care 01/24/2025 Travel from Last 3 Months Social History Tobacco Use Types Packs/Day Years [...] and heating? Not hard at all 01/26/2025 [facility] [place] of Occupat ional Health - Occupational Stress [...] needed for daily living? No 01/26/2025 [facility] Utilities Answer Date Recorded In the [...] or training? Not on file Preferred Language Mosotho 01/26/2025 PHQ-2 Answer Date Recorded Patient Health Questionnaire-2 Score 0 01/26/2025 Comments No Sex and Gender Information Value Date Recorded Sex Assigned at Not on file Legal Sex Female 8:49 AM EDT Gender Identity Not on file Sexual Orientation Not on file Last Filed Vital Signs Vital Sign Reading [...] Mass Index 24.6 01/24/2025 3:00 AM EST Plan of Treatment Health Maintenance Due Date Last Done Comments DXA SCAN 1942 TDAP/TD VACCINES (1 - Tdap) 1961 RSV Vaccine - Adults (1 - 1- dose 75+ series) 2017 Pneumococcal Vaccine 50+ (2 of 2 - PCV20 or PCV21) 10/31/2018 10/31/2017 ANNUAL PHYSICAL 12/31/2020 ZOSTER VACCINE (2 of 2) 09/04/2024 07/10/2024 COVID-19 Vaccine (4 - 2024-2 6 season) 2024 01/20/2021, 05/19/2020, 04/21/2020 LIPID PANEL 01/25/2026 01/25/2025, 12/21/2020 INFLUENZA VACCINE Completed 12/31/2024, , 11/29/2022, Additional history exists Procedures Procedure Name Priority Date/Time Associated Diagnosis Comments MRI BRAIN WO CONTRAST Routine 01/26/2025 2:00 AM EST LIPID PANEL Urgent 01/25/2025 10:45 AM EST HEMOGLOBIN A1C Urgent 01/25/2025 10:45 AM EST ECHO COMPLETE [...] EST RESPIRATORY PANEL PCR W/ COVID-19 (SARS-COV-2), TRAVELING REPRESENTATIVE SWAB IN UTM/VTP, 2 HR TAT Routine 01/24/2025 8:51 AM EST POCT GLUCOSE FINGERSTICK Routine 01/24/2025 7:39 AM EST SCANNED - TELEMETRY 01/24/2025 7 :33 AM EST TSH Routine 01/24/2025 6:17 AM EST MAGNESIUM Routine 01/24/2025 6:17 AM EST COMPREHENSIVE METABOLIC PANEL Routine 01/24/2025 6:17 AM EST CBC (NO DIFF) Routine 01/24/2025 6:16 AM EST ECG 12-LEAD Routine 01/24/2025 6:07 AM EST SCANNED EKG 01/23/2025 SCANNED - LABS 01/23/2025 SCANNED - IMAGING 01/23/2025 SCANNED - IMAGING 01/23/2025 SCANNED - IMAGING 01/23/2025 SCANNED - IMAGING 01/23/2025 from Last 3 Months Results * MRI Brain Without Contrast (01/26/2025 [...] MD 01/26/2025 2:35 AM EST Workstation ID: [id number] Narrative 01/26/2025 2:35 AM EST MRI BRAIN [...] MD 01/26/2025 2:35 AM EST Workstation ID: [id number] Kristina Whaley APRN IMG MRI ORDERABLES Final Result * (ABNORMAL) Hemoglobin A1c (01/25/2025 10:45 AM EST) Hemoglobin A1C 5.76(H) 4.80 - 5.60 % 01/25/2025 11:23 AM EST [facility] Blood Venipuncture / Unknown 01/25/2025 10:45 AM EST 01/25/2025 10:54 AM EST [facility] - 01/25/2025 11:23 AM EST Hemoglobin A1C Ranges: Increased Risk for Diabetes 5.7% to 6.4% Diabetes >= 6.5% Diabetic Goal < 7.0% Kristina Whaley APRN LAB BLOOD ORDERABLES Fin al Result [facility]
[address] [place] [address], * Lipid Panel (01/25/2025 10:45 AM EST) Total Cholesterol 132 0 - 200 mg/dL 01/25/2025 11:24 AM EST [facility] Triglycerides 64 0 - 150 mg/dL 01/25/2025 11:24 AM EST [facility] HDL Cholesterol 60 40 - 60 mg/dL 01/25/2025 11:24 AM EST [facility] LDL Cholesterol 59 0 - 100 mg/dL 01/25/2025 11:24 AM EST [facility] VLDL Cholesterol 13 5 - 40 mg/dL 01/25/2025 11:24 AM EST [facility] LDL/HDL Ratio 0.99 01/25/2025 11:24 AM EST [facility] Blood Venipuncture / Unknown 01/25/2025 10:45 AM EST 01/25/2025 10:54 AM EST Narrative [facility] - 01/25/2025 11:24 AM EST Cholesterol [...] using the NIH LDL-C calculation. Kristina Whaley [facility] LAB BLOOD ORDERABLES Fin al Result [facility]
[address] [place] [address], * ECHO COMPLETE W/ DOPPLER AND COLOR [...] is technically adequate for diagnosis. Kristina Whaley CLIENT PORTFOLIO MANAGER CV ECHO ORDERABLES Final Result * POC Glucose Once (01/24/2025 4:36 PM EST) Only the most recent of3 resultswithin the time period is included. Glucose 102 70 - 130 mg/dL 01/24/2025 4:39 PM EST [facility] Comment:Serial Number: [id number] Blood 01/24/2025 4:36 PM EST 01/24/2025 4:39 PM EST Sreedhar Uri Boss DO POINT OF CARE TEST ORDERA BLES Final Result Performing Organization Address [facility] Co de Phone Number [facility]
[address] [place] [address], * (ABNORMAL) Urinalysis, Microscopic Only - Urine, Clean Catch (01/24/2025 9:54 AM EST) RBC, UA 21-50(A) None Seen, 0-2 /HPF 01/24/2025 11:02 AM [facility] WBC, UA Too Numerous to Count(A) None Seen, 0-2 /HPF 01/24/2025 11:02 AM [facility] Bacteria, UA 4+(A) None Seen /HPF 01/24/2025 11:02 AM [facility] Squamous Epithelial Cells, UA 0-2 None Seen, 0-2 /HPF 01/24/2025 11:02 AM [facility] Hyaline Casts, UA None Seen None Seen /LPF 01/24/2025 11:02 AM [facility] Methodology Manual Light Microscopy 01/24/2025 11:02 AM [facility] Urine Urine specimen obtained by clean catch procedure / Unknown Collection / Unknown 01/24/2025 9:54 AM EST 01/24/2025 10:27 AM EST Anup Daniel MD URINE ORDERABLES Final Result Performing Organization Address City/[facility] Co de Phone Number [facility]
[address] [place] [address], * (ABNORMAL) Urinalysis With Culture If Indicated - Urine, Clean Catch (01/24/2025 9:54 AM EST) Color, UA Yellow Yellow, Straw 01/24/2025 10:35 AM EST [facility] Appearance, UA Turbid(A) Clear 01/24/2025 10:35 AM [facility] pH, UA 7.0 5.0 - 8.0 01/24/2025 10:35 AM [facility] Specific [place], UA 1.010 1.005 - 1.030 01/24/2025 10:35 AM [facility] Glucose, UA Negative Negative 01/24/2025 10:35 AM [facility] Ketones, UA Negative Negative 01/24/2025 10:35 AM [facility] Bilirubin, UA Negative Negative 01/24/2025 10:35 AM [facility] Blood, UA Large (3+)(A) Negative 01/24/2025 10:35 AM [facility] Protein, UA Negative Negative 01/24/2025 10:35 AM [facility] Leuk Esterase, UA Large (3+)(A) Negative 01/24/2025 10:35 AM [facility] Nitrite, UA Negative Negative 01/24/2025 10:35 AM [facility] Urobilinogen, UA 0.2 E.U./dL 0.2 - 1.0 E.U./dL 01/24/2025 10:35 AM [facility] Urine Urine specimen obtained by clean catch procedure / Unknown Collection / Unknown 01/24/2025 9:54 AM EST 01/24/2025 10:27 AM [facility] - 01/24/2025 10:35 AM EST In absence of clinical symptoms, the presence of pyuria, bacteria, and/or nitrites on the urinalysis result does not correlate with infection. us Anup Daniel MD URINE ORDERABLES Final Result [facility]
[address] [place] [address], * (ABNORMAL) Urine Culture - Urine, Urine, Clean Catch (01/24/2025 9:54 AM EST) Urine Culture >100,000 CFU/mL Escherichia coli(A) CELENA 01/26/2025 9:42 AM EST [facility] Urine Urine specimen obtained by clean catch procedure / Unknown Collection / Unknown 01/24/2025 9:54 AM EST 01/24/2025 10:27 AM EST Narrative [facility] - 01/26/2025 9:42 AM EST [...] MICROBIOLOGY - GENERAL ORDERA BLES Final Result [facility]
[address] [place] [address], * Respiratory Panel PCR w/COVID-19(SARS-CoV-2) CHERI/MAI/LO/PAD/COR/NATA In-House, TRAVELING REPRESENTATIVE Swab in UTM/VTM, 2 HR TAT - Swab, Nasopharynx (01/24/2025 8:51 AM EST) Pathologist [facility] [place] ADENOVIRUS, PCR Not Detected Not Detected BIOFIRYi CASTILLO 01/24/2025 12:56 PM EST [facility] Coronavirus 229E Not Detected Not Detected BIOFIRE TORCH 01/24/2025 12:56 PM [facility] Coronavirus HKU1 Not Detected Not Detected BIOFIRE TORCH 01/24/2025 12:56 PM [facility] Coronavirus NL63 Not Detected Not Detected BIOFIRE TORCH 01/24/2025 12:56 PM [facility] Coronavirus OC43 Not Detected Not Detected BIOFIRE TORCH 01/24/2025 12:56 PM [facility] COVID19 Not Detected Not Detected - Ref. Range BIOFIRE TORCH 01/24/2025 12:56 PM [facility] Human Metapneumovirus Not Detected Not Detected BIOFIRE TORCH 01/24/2025 12:56 PM [facility] Human Rhinovirus/Enterov irus Not Detected Not Detected BIOFIRE TORCH 01/24/2025 12:56 PM [facility] Influenza A PCR Not Detected Not Detected BIOFIRE TORCH 01/24/2025 12:56 PM [facility] Influenza B PCR Not Detected Not Detected BIOFIRE TORCH 01/24/2025 12:56 PM [facility] Parainfluenza Virus 1 Not Detected Not Detected BIOFIRE TORCH 01/24/2025 12:56 PM [facility] Parainfluenza Virus 2 Not Detected Not Detected BIOFIRE TORCH 01/24/2025 12:56 PM [facility] Parainfluenza Virus 3 Not Detected Not Detected BIOFIRE TORCH 01/24/2025 12:56 PM [facility] Parainfluenza Virus 4 Not Detected Not Detected BIOFIRE TORCH 01/24/2025 12:56 PM [facility] RSV, PCR Not Detected Not Detected BIOFIRE TORCH 01/24/2025 12:56 PM [facility] Bordetella pertussis pcr Not Detected Not Detected BIOFIRE TORCH 01/24/2025 12:56 PM [facility] Bordetella parapertussis PCR Not Detected Not Detected BIOFIRE TORCH 01/24/2025 12:56 PM EST [facility] Chlamydophila pneumoniae PCR Not Detected Not Detected BIOFIRE TORCH 01/24/2025 12:56 PM EST [facility] Mycoplasma pneumo by PCR Not Detected Not Detected BIOFIRE TORCH 01/24/2025 12:56 PM EST [facility] Swab Nasopharyngeal structure / Unknown Collection / Unknown 01/24/2025 8:51 AM EST 01/24/2025 11:32 AM EST Narrative [facility] - 01/24/2025 12:56 PM EST In [...] MICROBIOLOGY - GENERAL ORDERA BLES Final Result [facility]
[address] [place] [address], * Telemetry Scan (01/24/2025 7:33 AM EST) [facility] ECG ORDERABLES Final Result * TSH (01/24/2025 6:17 AM EST) TSH 0.293 0.270 - 4.200 uIU/mL 01/24/2025 7:32 AM EST [facility] Blood Venipuncture / Unknown 01/24/2025 6:17 AM EST 01/24/2025 6:57 AM EST Anup Daniel MD LAB BLOOD ORDERABLES Final Re sult [facility]
[address] [place] [address], * Magnesium (01/24/2025 6:17 AM EST) Pathologist [facility] [place] Magnesium 2.3 1.6 - 2.4 mg/dL 01/24/2025 7:32 AM EST [facility] Blood Venipuncture / Unknown 01/24/2025 6:17 AM EST 01/24/2025 6:57 AM EST us Anup Daniel MD LAB BLOOD ORDERABLES Final Re sult [facility]
[address] [place] [address], * (ABNORMAL) Comprehensive Metabolic Panel (01/24/2025 6:17 AM EST) [facility] Glucose 93 65 - 99 mg/dL 01/24/2025 7:32 AM [facility] BUN 9.5 8.0 - 23.0 mg/dL 01/24/2025 7:32 AM [facility] Creatinine 0.60 0.57 - 1.00 mg/dL 01/24/2025 7:32 AM [facility] Sodium 143 136 - 145 mmol/L 01/24/2025 7:32 AM [facility] Potassium 3.7 3.5 - 5.2 mmol/L 01/24/2025 7:32 AM [facility] Chloride 108(H) 98 - 107 mmol/L 01/24/2025 7:32 AM [facility] CO2 24.3 22.0 - 29.0 mmol/L 01/24/2025 7:32 AM [facility] Calcium 8.6 8.6 - 10.5 mg/dL 01/24/2025 7:32 AM [facility] Total Protein 7.0 6.0 - 8.5 g/dL 01/24/2025 7:32 AM [facility] Albumin 4.4 3.5 - 5.2 g/dL 01/24/2025 7:32 AM [facility] ALT (SGPT) 20 1 - 33 U/L 01/24/2025 7:32 AM [facility] AST (SGOT) 19 1 - 32 U/L 01/24/2025 7:32 AM [facility] Alkaline Phosphatase 91 39 - 117 U/L 01/24/2025 7:32 AM [facility] Total Bilirubin 0.3 0.0 - 1.2 mg/dL 01/24/2025 7:32 AM [facility] Globulin 2.6 gm/dL 01/24/2025 7:32 AM [facility] Comment:Calculated Result A/G Ratio 1.7 g/dL 01/24/2025 7:32 AM [facility] BUN/Creatinine Ratio 15.8 7.0 - 25.0 01/24/2025 7:32 AM [facility] Anion Gap 10.7 5.0 - 15.0 mmol/L 01/24/2025 7:32 AM [facility] eGFR 89.7 >60.0 mL/min/1.7 3 01/24/2025 7:32 AM [facility] Blood Venipuncture / Unknown 01/24/2025 6:17 AM EST 01/24/2025 6:57 AM [facility] - 01/24/2025 7:32 AM EST GFR [...] does not include race as a factor Anup Daniel MD LAB BLOOD ORDERABLES Final Re sult [facility]
[address] [place] [address], * (ABNORMAL) CBC (No Diff) (01/24/2025 6:16 AM EST) WBC 10.37 3.40 - 10.80 10*3/mm3 01/24/2025 7:09 AM EST [facility] RBC 4.03 3.77 - 5.28 10*6/mm3 01/24/2025 7:09 AM EST [facility] Hemoglobin 13.7 12.0 - 15.9 g/dL 01/24/2025 7:09 AM [facility] Hematocrit 41.6 34.0 - 46.6 % 01/24/2025 7:09 AM [facility] MCV 103.2(H) 79.0 - 97.0 fL 01/24/2025 7:09 AM [facility] MCH 34.0(H) 26.6 - 33.0 pg 01/24/2025 7:09 AM [facility] MCHC 32.9 31.5 - 35.7 g/dL 01/24/2025 7:09 AM [facility] RDW 11.9(L) 12.3 - 15.4 % 01/24/2025 7:09 AM [facility] RDW-SD 45.7 37.0 - 54.0 fl 01/24/2025 7:09 AM [facility] MPV 10.8 6.0 - 12.0 fL 01/24/2025 7:09 AM [facility] Platelets 157 140 - 450 10*3/mm3 01/24/2025 7:09 AM [facility] Blood Venipuncture / Unknown 01/24/2025 6:16 AM EST 01/24/2025 6:58 AM EST Anup Daniel MD LAB BLOOD ORDERABLES Final Re sult [facility]
[address] [place] [address], * ECG 12 Lead QT Measurement (01/24/2025 [...] Daniel MD ECG ORDERABLES Final Result ECG * ECG Scan (01/23/2025) [facility] On[facility] ECG ORDERABLES Final Result * IMAGING SCANNED (01/23/2025) Only the most recent of4 resultswithin the time period is included. Anatomical Region Laterality Modality Radiographic Guera ging [facility] On[facility] IMG DIAGNOSTIC IMAGING ORDERA BLES Final Result * LABS SCANNED (01/23/2025) [facility] LAB BLOOD ORDERABLES Final Re sult from Last [address] [address] [place] [address] MEDICARE A & B Member Subscriber Plan / Payer (Ef fective 2007-Present) Name:Lucille Campuzano Member ID:[id number] Relation to Subscriber:Self Name:Lucille Campuzano Subscriber ID:[id number] Payer ID:[id number] Group ID:Not on file Type:Not on file Address: [address] [employer] OPTIONS Advance Directives * CPR (Attempt to Resuscitate) (Latest Code Status on File) Date Activated Date Inactivated Comments 01/24/2025 6:00 AM 01/26/2025 5:24 PM Question Answer Comments Code Status (Patient has no pulse and is not breathing): CPR (Attempt to Resuscitate) Medical Interventions (Patie nt has pulse or is breathing): Full Support * No CPR (Do Not Attempt to Resuscitate) Date Activated Date Inactivated Comments 12/20/2020 11:41 AM 12/25/2020 5:21 PM Question Answer Comments Code Status (Patient has no pulse and is not breathing): No CPR (Do Not Attempt to Resuscitate) Medical Interventions (Patie nt has pulse or is breathing): Limited Medical Intervention Limits: Intubation Level Of Support Discussed With: Patient Care Teams Patient Relations Liaison Relationship Specialty Start Date End Date Hawk Davis MD [facility] [place] [address] [place] [address] PCP - General Adolescent Medicine 12/20/20
--- OUTSIDE RECORDS SUMMARY | 2025-02-20 18:46 | XMS_ITS | Encounter Summary ---
Author Organization [employer] ([place], [place], [place], [place], [place]) Address [address] [place] [address] Care Team Providers Care Professor Of Food Biochemistry Name Role Phone Unavailable Primary Care Provider Unavailabl e Encounter Details Date Type Department Care Team (Late st Contact Info) Description 09/23/2020 Transcribed Document [facility] Family Medicine [address] [place] [address] ProviderShannan MD [address] [place] [address] Social History Tobacco Use Types Packs/Day Years Used Date Smoking Tobacco: Never Assessed Comments Unknown Sex and Gender Information Value Date Recorded Sex Assigned at Not on file Legal Sex Female 7:22 PM CDT Gender Identity Not on file Sexual Orientation Not on file documented as of this encounter Miscellaneous Notes * Cerner Conversion Note - Shannan Nugent MD - 09/23/2020 11:40 AM CDT Final Discharge Planning Entered On: 09/23/2020 11:40 EDT Performed On: 09/23/2020 11:40 EDT by CHASE MAHER RN - Chief Optometry Service Final Discharge Planning Discharge Arrangements : Patient Post-Acute Information Patient Name: ABBEY MEADE Gender: Female : 44 Age: 80 Years No Post-Acute Placement(s) Listed No Post-Acute Service(s) Listed No [place] Referral(s) Listed Important Medicare Message Reviewed With : Patient Important Medicare Message Reviewed D/T : 09/23/2020 11:30 EDT Transportation Needs : Family/Friend Discharge Transportation Arrangement Cmt : Daughter Follow Up Appointment Scheduled : Yes Is Patient High/Moderate Readmission Risk? : Yes Patient/Family Notified of Plan : Yes Support Person/Pt Rep Notified of Plan : Yes Is Patient Ready for Discharge? : Yes Physician Notified Patient is Ready for Discharge? : Yes Discharge To Care Management : Home/Residential/Jail or Self Care - CHASE MAHER, RN - Chief Optometry Service - 09/23/2020 11:40 EDT Electronically signed by [facility] Conversion Peanut Sorter Cerner at 07/05/2022 11:52 PM CDT documented in this encounter Plan of Treatment Not on file documented as of this encounter Visit Diagnoses Not on filedocumented in this encounter
--- OUTSIDE RECORDS SUMMARY | 2025-02-20 18:46 | XMS_ITS | Encounter Summary ---
Author Organization [employer] ([place], [place], [place], [place], [place]) Address [address] [place] [address] Care Team Providers Care Business Teacher Name Role Phone Unavailable Primary Care Provider Unavailabl e Encounter Details Date Type Department Care Team (Late st Contact Info) Description 09/21/2020 Transcribed Document [facility] Radiology [address] [place] [address] Messi Mcgarry MD [address] [place] [address] [address] [place] [id number] Social History Tobacco Use Types Packs/Day Years Used Date Smoking Tobacco: Never Assessed Comments Unknown Sex and Gender Information Value Date Recorded Sex Assigned at Not on file Legal Sex Female 7:22 PM CDT Gender Identity Not on file Sexual Orientation Not on file documented as of this encounter Miscellaneous Notes * Cerner Conversion Note - Messi Mcgarry MD - 09/21/2020 11:41 AM EDT Patient: ABBEY MEADE Age: 80 years Sex: Female : 1940 Associated Diagnoses: None Author: MESSI MCGARRY MD-INT Subjective Admit information: Tx From: [facility] ER . Source of history: Self, Family member. Present at bedside: Family member. PCP: Dr. Andrea DOA: 09/20/2020 CODE STATUS: Full code Referral source: Emergency department. Chief Complaint 1. Severe weakness 2. Ongoing melena 3. Exertional dyspnea History of Present Illness This is 80-year-old [facility] with above-mentioned complaints. According [...] dizzy and weak. She went to the [facility] ER where work-up revealed hemoglobin of 7.8 [...] Covid vaccine CONSULTS: Gastroenterology WORKUP / PROCEDURES: HOSPITAL FOLLOWUP: 09/21/2020 Patient looks and feels better today. She received blood transfusion yesterday and hemoglobin is stabilizing. Denies chest pain or shortness of breath. Denies abdominal pain. No nausea vomiting. Weakness is overall improving. Health Status Allergies: Allergic Reactions (Selected) Severity Not Documented Haldol- No reactions were documented. Current medications: (Selected) Inpatient Medications Ordered DuoNeb 0.5 mg-2.5 mg/3 mL inhalation solution: 3 mL, Nebulized Inhalation, RT_Q6H, PRN: Shortness of Breath Lexapro: 20 mg, Oral, Daily Lipitor: 20 mg, Oral, At Bedtime Maxalt: 10 mg, Oral, BID, PRN: Migraine Headache Percocet 5/325: 1.5 Tab, Oral, TID, PRN: Pain (Moderate 4-6) SEROquel: 200 mg, Oral, At Bedtime Sodium Chloride 0.9% intravenous solution 1,000 mL: 75 mL/Hr, IntraVENous Tylenol: 650 mg, Oral, Q4H, PRN: Pain [...] IV Piggyback, Q2H, PRN: Other (See Comment) pantoprazole injection 80 mg + Sodium Chloride 0.9% intravenous solution 250 mL: 25 mL/Hr, IntraVENous potassium chloride 10 mEq/50 mL intravenous solution: 10 mEq, 50 mL, 50 mL/Hr, IV Piggyback, Q1H, PRN: Other (See Comment) potassium chloride 20 mEq oral tablet, extended release: 20 mEq, 1 Tab, Oral, Q2H, PRN: Other (See Comment) potassium chloride 20 mEq oral tablet, extended release: 60 mEq, 3 Tab, Oral, Q2H, PRN: Other (See Comment) propranolol: 10 mg, Oral, TID sodium phosphate: 15 mMole, 5 mL, 50 mL/Hr, IV Piggyback, Daily, PRN: Other (See Comment) sodium phosphate: 15 mMole, 5 mL, 50 mL/Hr, IV Piggyback, Q6H, PRN: Other (See Comment) Documented Medications Documented ALPRAZolam 1 mg oral tablet: 60 Each, TAKE ONE TABLET BY MOUTH TWICE DAILY NEEDED MAY CAUSE DROWSINESS, 0 Refill(s) QUEtiapine 200 mg oral tablet: 30 Each, TAKE ONE TABLET BY MOUTH EVERY DAY AT BEDTIME, 0 Refill(s) acetaminophen-oxyCODONE 325 mg-7.5 mg oral tablet: 90 Each, TAKE ONE TABLET BY MOUTH THREE TIMES DAILY MAY CAUSE DROWSINESS, 0 Refill(s) amLODIPine 5 mg oral tablet: 30 Each, TAKE ONE TABLET BY MOUTH EVERY DAY, 0 Refill(s) escitalopram 20 mg oral tablet: 90 Each, TAKE ONE TABLET BY MOUTH EVERY DAY, 0 Refill(s) ferrous gluconate 324 mg (38 mg elemental iron) oral tablet: 30 Each, TAKE ONE TABLET BY MOUTH EVERY DAY, 0 Refill(s) omeprazole 20 mg oral delayed release capsule: 180 Each, TAKE ONE CAPSULE BY MOUTH TWICE DAILY, 0 Refill(s) propranolol 40 mg oral tablet: 60 Each, TAKE ONE TABLET BY MOUTH TWICE DAILY, 0 Refill(s) rizatriptan 10 mg oral tablet, disintegratin Each, DISSOLVE ONE TABLET in MOUTH NEEDED FOR migraines, 0 Refill(s) simvastatin 40 mg oral tablet: 90 Each, TAKE ONE TABLET BY MOUTH EVERY DAY AT BEDTIME, 0 Refill(s), Home Medications (10) Active acetaminophen-oxyCODONE 325 mg-7.5 mg oral tablet ALPRAZolam 1 mg oral tablet amLODIPine 5 mg oral tablet escitalopram 20 mg oral tablet ferrous gluconate 324 mg (38 mg elemental iron) oral tablet omeprazole 20 mg oral delayed release capsule propranolol 40 mg oral tablet QUEtiapine 200 mg oral tablet rizatriptan 10 mg oral tablet, disintegrating simvastatin 40 mg oral tablet Problem list: Active Problems (6) At risk for sleep apnea GERD (gastroesophageal reflux disease) GI bleed Hiatal hernia Hyperlipidemia Hypertension Objective VS/Measurements Vitals Signs (last 24 hrs) Last Charted Minimum Maximum Temp 98.4 (SEP 21 06:00) 98.0 (SEP 20 22:40) 98.3 (SEP 20 17:30) Apical HR H 101 (SEP 20 22:37) H 101 (SEP 20 22:37) H 101 (SEP 20 22:37) Mon HR 86 (SEP 21 06:00) 86 (SEP 21 06:00) 123 (SEP 20 17:30) Resp Rate H 24 (SEP 21:00) 14 (SEP 20 20:30) H 33 (SEP 20 20:15) SBP 126 (SEP 21:00) 109 (SEP 21 05:00) H 176 (SEP 20:30) DBP L 58 (SEP 21 06:00) L 54 (SEP 21:00) 87 (SEP 20 21:15) MAP 84 (SEP 21:) 77 (SEP 21 05:00) 105 (SEP 20:30) SpO2 L 93 (SEP 21:) L 90 (SEP 21:30) 100 (SEP 20 17:30) General: Alert and oriented, No acute distress. [...] Results Review No Radiology Results Found SEP 21 02:49 145 H 116 H 28 / H 120 L 3.0 23 L 0.30 \ SEP 21 02:49 \ L 7.5 / 7.5 L 143 / L 24.1 \ Impression and Plan Assessment and Plan: Diagnosis. DIAGNOSIS: Hypokalemia, being replaced. Acute GI bleed with melanotic stools, present on admission. Continue with Protonix drip and likely EGD today. Acute blood loss anemia, due to above. Received blood transfusion. Continue to monitor H&H and transfuse as needed. Tachycardia, due to above. Improving. Essential hypertension. Stable. Chronic back pain History of hiatal hernia PLAN: Continue to monitor in ICU as she will be going for EGD. Continue to monitor H&H and transfuse as needed. Will start diet if okay with GI Continue with Protonix drip Br Rx, O2, Pulmonary Toilet, as needed D/W Pt and she understands the plan. D/W nursing staff in ICU documented in this encounter Plan of Treatment Not on file documented as of this encounter Visit Diagnoses Not on filedocumented in this encounter
--- OUTSIDE RECORDS SUMMARY | 2025-02-20 18:46 | XMS_ITS | Encounter Summary ---
Author Organization [employer] ([place], [place], [place], [place], [place]) Address [address] [place] [address] Care Team Providers Care Filler Shredder Name Role Phone Unavailable Primary Care Provider Unavailabl e Encounter Details Date Type Department Care Team (Late st Contact Info) Description 09/23/2020 Transcribed Document [facility] [place] [address] [place] [address] ProviderShannan MD [address] [place] [address] Social History Tobacco Use Types Packs/Day Years Used Date Smoking Tobacco: Never Assessed Comments Unknown Sex and Gender Information Value Date Recorded Sex Assigned at Not on file Legal Sex Female 7:22 PM CDT Gender Identity Not on file Sexual Orientation Not on file documented as of this encounter Miscellaneous Notes * Cerner Conversion Note - Historical ProviderMD - 09/23/2020 11:10 AM CDT Spiritual Care Short Form Entered On: 09/24/2020 15:42 EDT Performed On: 09/23/2020 11:10 EDT by VERENA JUAREZ General Information, Spiritual Care Intervention/Comment/Summary Points : Participated in [facility] VERENA JUAREZ - 09/24/2020 15:41 EDT Electronically signed by Rory Rosado Conversion Developmental Mathematics Professor Cerner at 07/05/2022 11:52 PM CDT documented in this encounter Plan of Treatment Not on file documented as of this encounter Visit Diagnoses Not on filedocumented in this encounter
--- OUTSIDE RECORDS SUMMARY | 2025-02-20 18:46 | XMS_ITS | Encounter Summary ---
Author Organization [employer] ([place], [place], [place], [place], [place]) Address [address] [place] [address] Care Team Providers Care Diamond Sizer And Grader Name Role Phone Unavailable Primary Care Provider Unavailabl e Encounter Details Date Type Department Care Team (Late st Contact Info) Description 09/23/2020 Transcribed Document [facility] Radiology [address] [place] [address] Messi Mcgarry MD [address] [place] [address] [address] [place] [id number] Social History Tobacco Use Types Packs/Day Years Used Date Smoking Tobacco: Never Assessed Comments Unknown Sex and Gender Information Value Date Recorded Sex Assigned at Not on file Legal Sex Female 7:22 PM CDT Gender Identity Not on file Sexual Orientation Not on file documented as of this encounter Miscellaneous Notes * Cerner Conversion Note - Messi Mcgarry MD - 09/23/2020 11:21 AM EDT Patient: ABBEY MEADE Age: 80 years Sex: Female : 1940 Associated Diagnoses: None Author: MESSI MCGARRY MD-INT Subjective Admit information: Tx From: [facility] ER . Source of history: Self, Family member. Present at bedside: Family member. PCP: Dr. Andrea DOA: 09/20/2020 DOD: 09/23/2020 CODE STATUS: Full code Referral source: Emergency department. Chief Complaint 1. Severe weakness 2. Ongoing melena 3. Exertional dyspnea History of Present Illness This is 80-year-old female presented to the [facility] ER with above-mentioned complaints. According to patient [...] dizzy and weak. She went to the [facility] ER where work-up revealed hemoglobin of 7.8 [...] camerons uilcer *Surgeon(s) CAROL MOORE MD-GAE (Surgeon/Proceduralist, [facility]) *Findings Esophagus was normal except for a [...] and BP remained stable. No distress noted. Patient can be discharged today and will follow with the GI instructions. Patient will make her own appointment for follow-up EGD as recommended. Health Status Allergies: Allergic Reactions (Selected) Severity [...] Temp 98.2 (SEP 23 06:05) 98.2 (SEP 23 06:05) 98.7 (SEP 22 16:09) Apical HR 94 (SEP 23 08:35) 84 [...] (SEP 23 06:05) H 117 (SEP 22 16:09) MAP 64 (SEP 23 06:05) 64 (SEP [...] back pain History of hiatal hernia PLAN: 1- DC home today. 2- Follow with PCP in 1 week and check CBC. 3- Follow with GI as recommended. Discharge Medications (10) Active acetaminophen-oxyCODONE 325 mg-7.5 mg oral tablet 1 Tab, PRN, Oral, TID ALPRAZolam 1 mg oral tablet 1 mg = 1 Tab, PRN, Oral, BID amLODIPine 5 mg oral tablet 5 mg = 1 Tab, Oral, Daily. This is on hold in hospital. Can restart in couple of days escitalopram 20 mg oral tablet 20 mg = 1 Tab, Oral, Daily ferrous gluconate 324 mg (38 mg elemental iron) oral tablet 324 mg = 1 Tab, Oral, Daily pantoprazole 40 mg oral delayed release tablet 40 mg = 1 Tab, Oral, BID. New medicine propranolol 40 mg oral tablet 40 mg = 1 Tab, Oral, BID QUEtiapine 200 mg oral tablet 200 mg = 1 Tab, Oral, At Bedtime rizatriptan 10 mg oral tablet, disintegrating 10 mg = 1 Tab, PRN, Oral, Daily simvastatin 40 mg oral tablet 40 mg = 1 Tab, Oral, At Bedtime DC time spent 36 minutes CC DC summary to PCP, gastroenterology. documented in this encounter Plan of Treatment Not on file documented as of this encounter Visit Diagnoses Not on filedocumented in this encounter
--- OUTSIDE RECORDS SUMMARY | 2025-02-20 18:46 | XMS_ITS | Clinical Summary ---
Author Organization [facility] Address [address] [place] [address] Care Team Providers Care Legal Librarian Name Role Phone Hawk Davis MD Primary Care Provider [phone] Allergies Active Allergy Reactions Criticality Noted Date Comments Haloperidol Other - please docum ent in the comment field Low 07/08/2013 Facial distortion Medications polyethylene glycol (Miralax) 17 g packet Take 17 g by mouth 1 (one) time each day. Active oxyCODONE-aceta minophen (Percocet) 7.5-325 MG tablet Take 1 tablet by mouth 3 (three) times a day. Crush for 2 weeks post-op 0 2 Active ALPRAZolam (Xanax) 1 MG tablet Take 1 tablet (1 mg total) by mouth 2 (two) times a day if needed for anxiety. Crush for 2 weeks post-op 2 Active escitalopram (Lexapro) 20 MG tablet Take 1 tablet (20 mg total) by mouth 1 (one) time each day in the morning. Crush for 2 weeks post-op 2 Active mirtazapine (Remeron) 15 MG tablet Take 1 tablet (15 mg total) by mouth every night. Crush for 2 weeks post-op 2 Active atorvastatin (Lipitor) 40 MG tablet Take 1 tablet (40 mg total) by mouth every night. Crush for 2 weeks post-op 2 Active QUEtiapine (SEROquel) 200 MG tablet Take 1 tablet (200 mg total) by mouth every night. Crush for 2 weeks post-op 2 Active carvedilol (Coreg) 12.5 MG tablet Take 1 tablet (12.5 mg total) by mouth 2 (two) times a day with meals. Crush for 2 weeks post-op 2 Active amLODIPine (Norvasc) 5 MG tablet Take 1 tablet (5 mg total) by mouth 1 (one) time each day. Crush for 2 weeks post-op 2 Active clopidogrel (Plavix) 75 MG tablet Take 1 tablet (75 mg total) by mouth 1 (one) time each day. Crush for 2 weeks post-op 2 Active Calcium Carbonate-Vit D-Min (Calcium 1200) 2400-1201 MG-UNIT chewable tablet Chew 1 each 1 (one) time each day. Crush for 2 weeks post-op 30 tablet 2 Active Multiple Vitamin (Multi-Vitamin) tablet Take 1 tablet by mouth 1 (one) time each day. Crush for 2 weeks post-op 2 Active pantoprazole (Protonix) 40 MG EC tablet Take 1 tablet (40 mg total) by mouth 1 (one) time each day in the morning. Cannot be crushed. May be able to stop post op but if still needed, use omeprazole (prilosec OTC) and open capsules 2 Active thiamine (Vitamin B-1) 100 MG tablet Take 1 tablet (100 mg total) by mouth 1 (one) time each day. Crush for 2 weeks post-op 2 Active Vitamin E 400 units tablet Take 1 tablet by mouth 1 (one) time each day. Crush for 2 weeks post-op 0 2 Active Additional Information Patient not taking.Reported on 12/07/2021 simethicone (Mylicon) 20 mg/0.3 mL drops Take 1.2 mL (80 mg total) by mouth 4 (four) times a day if needed for flatulence. 30 mL 2 Active Additional Information Patient not taking.Reported on 12/07/2021 HYDROcodone-oralia taminophen (Hycet) 7.5-325 MG/15ML solution Take 20 mL (10 mg of hydrocodone total) by mouth every 6 (six) hours if needed for severe pain. 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 Hiatal hernia 06/10/2021 Overview (06/10/2021): Added automatically from request for surgery [id number] Family History Medical History Relation Name Comments Anesthesia problems Neg Hx Malig Hyperthermia Neg Hx Social History Tobacco Use Types Packs/Day Years Used Date Smoking Tobacco: Never Smokeless Tobacco: Never Tobacco Cessation:Counseling Given: Not Answered Alcohol Use Standard Drinks/Week Comments Yes 2 (1 standard drink = 0.6 oz pur e alcohol) occasional PHQ-2 Answer Date Recorded Patient Health Questionnaire-2 Score 0 08/03/2021 Comments No Sex and Gender Information Value Date Recorded Sex Assigned at Not on file Legal Sex Female 8:48 PM EDT Gender Identity Not on file Sexual Orientation Not on file Last Filed Vital Signs Vital Sign Reading Time Taken Comments Blood Pressure 156/66 12/07/2021 11:13 AM EDT Pulse 98 12/07/2021 11:13 AM EDT Temperature 36.1 C (96.9 F) 12/07/2021 11:13 AM EDT Respiratory Rate 16 07/05/2021 7:03 PM EDT Oxygen Saturation 94% 07/06/2021 3:08 PM EDT Inhaled Oxygen Concentration - - Weight 71.1 kg (156 lb 12 oz) 12/07/2021 11:13 A M EDT Height 170.2 cm (5' 7 ) 12/07/2021 11:13 AM EDT Body Mass Index 24.55 12/07/2021 11:13 AM EDT Plan of Treatment Health Maintenance Due Date Last Done Comments [facility]-Bone Density Scan 1940 [facility]-Depression Screening 1940 [facility]-Infant/Child/Adol SDOH Screenings 1940 [facility]- SDOH Screenings 1960 [facility]-Adult SDOH Screenings 1960 [facility]-DTaP,Tdap,and Td Vaccines (1 - Tdap) 1961 [facility]-Zoster Vaccines (1 of 2) 1992 [facility]-RSV Vaccine: 60+ Years or (1 - 1-dose 75+ series) 2017 [facility]-Pneumococcal Vaccine: 50+ Years (2 of 2 - PCV20 or PCV21) 10/31/2018 10/31/2017 [id number] Vaccine (4 - season) 2024 01/20/2021, 05/19/2020, 04/21/2020 [facility]-Influenza Vaccine (#1) 11/17/202411/30, 01/10/2017 HPV Vaccines Aged Out No longer eligi ble based on patient's age to complete this topic [facility]-HIB Vaccines Aged Out No longer e ligible based on patient's age to complete this topic [facility]-Hepatitis A Vaccines Aged Out No longer eligible based on patient's age to complete this topic [facility]-IPV Vaccines Aged Out No longer e ligible based on patient's age to complete this topic UKY-Rotavirus Vaccines Aged Out No lo nger eligible based on patient's age to complete this topic Medical Devices Implanted Type Area Bus Info Consultant Device Identifier Shelf Expiration Date Model / Serial / Lot Mesh Bio A 7cm X 10cm - [id number] - [id number] Implanted:Qty: 1 on 07/05/2021 by Anup Ward MD at [facility] Mesh N/A: Abdomen [employer]-[id number] 03/07/2024 [id number] / [id number] / Insurance [facility] Member Subscriber Plan / Payer (Ef fective 2021-Present) Name:Lucille Campuzano Relation to Subscriber:Self Name:Lucille Campuzano Payer ID:Not on file Group ID:Not on file Type:Not on file Address: [address] [address] MEDICARE Advance Directives * Full Code (Latest Code Status on File) Date Activated Date Inactivated Comments 07/05/2021 5:28 PM 07/06/2021 8:26 PM Question Answer Comments Patient has decision-making capacity? Yes Care Teams Legal Librarian Relationship Specialty Start Date End Date Hawk Davis MD [address] [place] [address] [place] [address] PCP - General 07/30/20
--- OUTSIDE RECORDS SUMMARY | 2025-02-20 18:46 | XMS_ITS | Encounter Summary ---
Author Organization [employer] ([place], [place], [place], [place], [place]) Address [address] [place] [address] Care Team Providers Care Fitness Services Manager Name Role Phone Unavailable Primary Care Provider Unavailabl e Encounter Details Date Type Department Care Team (Late st Contact Info) Description 09/22/2020 Transcribed Document [facility] [place] [facility] [place] [address] ProviderShannan MD [address] [place] [address] Social History Tobacco Use Types Packs/Day Years Used Date Smoking Tobacco: Never Assessed Comments Unknown Sex and Gender Information Value Date Recorded Sex Assigned at Not on file Legal Sex Female 7:22 PM CDT Gender Identity Not on file Sexual Orientation Not on file documented as of this encounter Miscellaneous Notes * Cerner Conversion Note - Shannan Nugent MD - 09/22/2020 10:49 AM CDT On Going Discharge Planning Entered On: 09/22/2020 10:51 EDT Performed On: 09/22/2020 10:49 EDT by FAISAL PONCE Rn-Improvement RnMonitor Car Operator Progress Note Discharge Arrangements : Patient Post-Acute Information Patient Name: ABBEY MEADE Gender: Female : [birth year] Age: 80 Years No Post-Acute Placement(s) Listed No Post-Acute Service(s) Listed No [place] Referral(s) Listed Discharge Options Discussed with Patient : Discharge transportation, DME Barriers to Discharge Identified : Clinical Condition of Patient, Follow-Up appointments needed Barriers to Discharge Unresolved : Clinical Condition of Patient FAISAL PONCE, Kendall-Improvement Rn - 09/22/2020 10:49 EDT Narrative Progress Note Narrative Progress Note : HD#2; POD#2 - EGD/Bx - Oniel erosions - to be placed on PPI; RA; DCP likely home without needs; f/u w/GI in 2 months for repeat EGD; transfer to [facility]. Historical Progress Note : DCP - likely home w/family without needs; f/u with specialists/PCP as recommended. FAISAL PONCE, Rn-Improvement Rn - 09/21/20 14:43:31 FAISAL PONCE Rn-Improvement Rn - 09/22/2020 10:49 EDT documented in this encounter Plan of Treatment Not on file documented as of this encounter Visit Diagnoses Not on filedocumented in this encounter
--- OUTSIDE RECORDS SUMMARY | 2025-02-20 18:46 | XMS_ITS | Encounter Summary ---
Author Organization [employer] ([place], [place], [place], [place], [place]) Address [address] [place] [address] Care Team Providers Care Leather Stripping Machine Operator Name Role Phone Unavailable Primary Care Provider Unavailabl e Encounter Details Date Type Department Care Team (Late st Contact Info) Description 09/21/2020 Transcribed Document [facility] Family Medicine [address] [place] [address] ProviderShannan MD [address] [place] [address] Social History Tobacco Use Types Packs/Day Years Used Date Smoking Tobacco: Never Assessed Comments Unknown Sex and Gender Information Value Date Recorded Sex Assigned at Not on file Legal Sex Female 7:22 PM CDT Gender Identity Not on file Sexual Orientation Not on file documented as of this encounter Miscellaneous Notes * Cerner Conversion Note - Shannan Nugent MD - 09/21/2020 8:43 AM CDT Patient: ABBEY MEADE Age: 80 Years Sex: Female : 1940 Chief Complaint Severe weakness, Ongoing melena, Exertional dyspnea Reason for Consultation GIB History of Present Illness Ms. Meaed is a 80-year-old female with history of GERD, hypertension who we have been consulted to see for GIB. She presented to OSH with complaints of generalized weakness, melena and exertional SOA. She as noted to have hgb of 7.8. She was transferred here for GI evaluation. Labs on arrival here showed hgb 6.5. She has had 2 units of blood, most recent hgb 8.0. Patient reports she started having black stools over the last few days. She has had problems with anemia in the past requiring oral and IV iron. She states she had an EGD and colonoscopy in the past. EGD with enteroscopy was done at [facility] per patient back in February. She was told at that time they thought her anemia with likely from her hiatal hernia. Colonoscopy was done ~[address] Mullins, unsure of polyps. She also states she had a pill cam at one point, negative. She denies use of ASA, Excedrin, anticoagulation, NSAIDs. She denies brbpr. No significant abdominal pain, nausea or vomiting. She takes Omeprazole 40mg once daily at home for GERD. No known family history of GI disease or malignancy. reports she is feeling better after having blood transfusion. Review of Systems A complete Review of systems was performed, all other systems were reviewed and are negative except as stated within the HPI. Vital Signs T: 36.9 ??C TMIN: 36.7 ??C TMAX: 36.9 ??C HR: 86(Monitored) RR: 24 BP: 126/58 SpO2: 93% HT: 170.18 cm WT: 79 kg BMI: 27.28 Oxygen Settings (Last) Oxygen Therapy Mode: Room air (09/21/20 00:00:00) Oxygen Flow Rate: 2 Liter/Min (09/20/20 20:00:00) Physical Exam General: Alert and oriented, well nourished, no acute distress. daughter at bedside. Neurologic: Awake, alert, and oriented X3, CN II-XII intact. Eye: PERRL, EOMI, pale conjunctiva, no scleral icterus HENT: Normocephalic, normal hearing, moist oral mucosa. Neck: Supple, non-tender, no lymphadenopathy. Lungs: Clear to auscultation, non-labored respiration on room air. Heart: Normal rate, regular rhythm, no murmur. Abdomen: Soft, non-tender, non-distended, normal bowel sounds, no masses. Musculoskeletal: Normal range of motion and strength, no joint tenderness or swelling. Skin: Skin is warm, dry, pale appearing, no rashes or lesions. Psychiatric: Cooperative, appropriate mood and affect. Assessment/Plan Acute blood loss anemia with melena History of CHAGO requiring oral and IV iron -No NSAID, aspirin use. CHAGO in the past was thought likely from what sounds like Oniel erosions. Will plan for EGD today. No evidence of CHAGO based on most recent labs-- has been on iron at home. EGD orders placed, I have notified endoscopy. Monitor H/H, blood transfusion as needed. Covid negative at OSH Pt. agreeable to EGD. Risks vs benefits discussed, such as bleeding, perforation, infection, reaction to anaesthesia, missed lesion, complication requiring additional surgery or procedures, failure to be able to complete procedure. Pt will have additional opportunity to discuss this with the ordering/performing physician and have additional questions asked/answered prior to the procedure. H&P above was performed by Alannah Cartagena PA-C and Dr. Kendall. Discussed with patient's daughter at bedside. I, Monika Kendall, have personally interviewed the patient, reviewed the chart, performed the physical exam and formulated the treatment plan. Thank you for this consultation. Provider Information Attending Physician - GISEL WOLFF MD-INT Admitting Physician - GISEL WOLFF MD-INT Consulting Physician - JODIE GARY MD Problem List/Past Medical History Ongoing At risk for sleep apnea GERD (gastroesophageal reflux disease) GI bleed Hiatal hernia Hyperlipidemia Hypertension Historical No qualifying data Procedure/Surgical History CHOLECYSTECTOMY, HYSTEROTOMY ABDOMINAL. Medications Inpatient calcium gluconate calcium gluconate + Sodium Chloride [...] 10 mg= 1 Tab, Oral, BID, PRN pantoprazole injection 80 mg + Sodium Chloride 0.9% intravenous solution 250 mL Percocet 5/325, 1.5 Tab, Oral, TID, PRN potassium chloride 10 mEq/50 mL intravenous solution, 10 mEq= 50 mL, IV Piggyback, Q1H, PRN potassium chloride 20 mEq oral tablet, extended release, 20 mEq= 1 Tab, Oral, Q2H, PRN potassium chloride 20 mEq oral tablet, extended release, 60 mEq= 3 Tab, Oral, Q2H, PRN propranolol, 10 mg= 1 Tab, Oral, TID SEROquel, 200 mg= 1 Tab, Oral, At Bedtime Sodium Chloride 0.9% intravenous solution 1,000 mL, 1000 mL, IntraVENous sodium phosphate sodium phosphate Tylenol, 650 mg= 2 Tab, Oral, Q4H, PRN Zofran, 4 mg= 2 mL, IV Push, Q4H, PRN Home acetaminophen-oxyCODONE 325 mg-7.5 mg oral tablet ALPRAZolam 1 mg oral tablet amLODIPine 5 mg oral tablet escitalopram 20 mg oral tablet ferrous gluconate 324 mg (38 mg elemental iron) oral tablet omeprazole 20 mg oral delayed release capsule propranolol 40 mg oral tablet QUEtiapine 200 mg oral tablet rizatriptan 10 mg oral tablet, disintegrating simvastatin 40 mg oral tablet Allergies Haldol Social History nonsmoker no alcohol or drug use Family History No known family history of GI disease or malignancy. Diagnostic Results N/A Lab Results Test Name Test Result Date/Time Sodium Level 145 mmol/L 09/21/2020 02:49 EDT Sodium Level 147 mmol/L (High) 09/20/2020 17:42 EDT Potassium Level 3.0 mmol/L (Low) 09/21/2020 02:49 EDT Potassium Level 3.5 mmol/L 09/20/2020 17:42 EDT Chloride Level 116 mmol/L (High) 09/21/2020 02:49 EDT Chloride Level 117 mmol/L (High) 09/20/2020 17:42 EDT Carbon Dioxide Level 23 mmol/L 09/21/2020 02:49 EDT Carbon Dioxide Level 22 mmol/L 09/20/2020 17:42 EDT Anion Gap 9 09/21/2020 02:49 EDT Anion Gap 12 09/20/2020 17:42 EDT Glucose Level 120 mg/dL (High) 09/21/2020 02:49 EDT Glucose Level 119 mg/dL (High) 09/20/2020 17:42 EDT Blood Urea Nitrogen 28 mg/dL (High) 09/21/2020 02:49 EDT Blood Urea Nitrogen 39 mg/dL (High) 09/20/2020 17:42 EDT Creatinine Level 0.30 mg/dL (Low) 09/21/2020 02:49 EDT Creatinine Level 0.50 mg/dL (Low) 09/20/2020 17:42 EDT eGFR >60 mL/min/1.73m2 09/21/2020 02:49 EDT eGFR >60 mL/min/1.73m2 09/20/2020 17:42 EDT eGFR NonAfrican >60 mL/min/1.73m2 09/21/2020 02:49 EDT eGFR NonAfrican >60 mL/min/1.73m2 09/20/2020 17:42 EDT Bun/Creatinine 93.3 (High) 09/21/2020 02:49 EDT Bun/Creatinine 78.0 (High) 09/20/2020 17:42 EDT Calcium Level 7.5 mg/dL (Low) 09/21/2020 02:49 EDT Calcium Level 8.3 mg/dL (Low) 09/20/2020 17:42 EDT Protein Total 4.7 Gram/dL (Low) 09/21/2020 02:49 EDT Protein Total 5.4 Gram/dL (Low) 09/20/2020 17:42 EDT Albumin Level 2.6 Gram/dL (Low) 09/21/2020 02:49 EDT Albumin Level 3.1 Gram/dL (Low) 09/20/2020 17:42 EDT Globulin 2.1 Gram/dL 09/21/2020 02:49 EDT Globulin 2.3 Gram/dL 09/20/2020 17:42 EDT A/G Ratio 1.2 09/21/2020 02:49 EDT A/G Ratio 1.3 09/20/2020 17:42 EDT Bilirubin Total 0.8 mg/dL 09/21/2020 02:49 EDT Bilirubin Total 0.2 mg/dL 09/20/2020 17:42 EDT Alk Phos 45 Units/Liter 09/21/2020 02:49 EDT Alk Phos 54 Units/Liter 09/20/2020 17:42 EDT AST 21 Units/Liter 09/21/2020 02:49 EDT AST 17 Units/Liter 09/20/2020 17:42 EDT ALT 20 Units/Liter 09/21/2020 02:49 EDT ALT 20 Units/Liter 09/20/2020 17:42 EDT Magnesium Level 1.8 mg/dL 09/20/2020 17:42 EDT Phosphorus 3.1 mg/dL 09/20/2020 17:42 EDT Lactic Acid Level 1.4 mmol/L 09/20/2020 19:57 EDT Troponin I Ultra 0.019 ng/mL 09/20/2020 19:57 EDT WBC 7.5 K/uL 09/21/2020 02:49 EDT WBC 8.7 K/uL 09/20/2020 17:42 EDT RBC 2.73 Million/uL (Low) 09/21/2020 02:49 EDT RBC 2.47 Million/uL (Low) 09/20/2020 17:42 EDT Hgb 7.5 g/dL (Low) 09/21/2020 02:49 EDT Hgb 6.7 g/dL (Low) 09/20/2020 17:42 EDT Hct 24.1 % (Low) 09/21/2020 02:49 EDT Hct 21.8 % (Low) 09/20/2020 17:42 EDT MCV 88.3 fL 09/21/2020 02:49 EDT MCV 88.3 fL 09/20/2020 17:42 EDT MCH 27.5 pg 09/21/2020 02:49 EDT MCH 27.1 pg 09/20/2020 17:42 EDT MCHC 31.1 Gram/dL (Low) 09/21/2020 02:49 EDT MCHC 30.7 Gram/dL (Low) 09/20/2020 17:42 EDT Platelet Count 143 K/uL (Low) 09/21/2020 02:49 EDT Platelet Count 194 K/uL 09/20/2020 17:42 EDT MPV 10.9 fL 09/21/2020 02:49 EDT MPV 10.8 fL 09/20/2020 17:42 EDT RDW 14.8 % 09/21/2020 02:49 EDT RDW 14.6 % 09/20/2020 17:42 EDT Neut % 53.0 % 09/21/2020 02:49 EDT Neut # 3.96 K/uL 09/21/2020 02:49 EDT Lymph % 35.3 % 09/21/2020 02:49 EDT Lymph # 2.64 x10(3)/uL 09/21/2020 02:49 EDT [place] % 10.3 % (High) 09/21/2020 02:49 EDT [place] # 0.77 K/uL 09/21/2020 02:49 EDT Eos % 0.8 % 09/21/2020 02:49 EDT Eos # 0.06 x10(3)/uL 09/21/2020 02:49 EDT Baso % 0.3 % 09/21/2020 02:49 EDT Baso # 0.02 x10(3)/uL 09/21/2020 02:49 EDT Slide Review No 09/21/2020 02:49 EDT Slide Review No 09/20/2020 17:42 EDT IG# 0.02 x10(3)/uL 09/21/2020 02:49 EDT IG% 0.30 % 09/21/2020 02:49 EDT PT 11.0 Second(s) 09/20/2020 17:42 EDT INR 1.1 09/20/2020 17:42 EDT PTT 21.0 Second(s) (Low) 09/20/2020 17:42 EDT Urine Type. U CleanCatch 09/21/2020 06:30 EDT Urine Color YELLOW2 09/21/2020 06:30 EDT Urine Appearance CLEAR2 09/21/2020 06:30 EDT Urine Specific [place] 1.021 09/21/2020 06:30 EDT Urine pH Dipstick 5.5 (Low) 09/21/2020 06:30 EDT Urine Leukocyte Esterase SMALL2 (Abnormal) 09/21/2020 06:30 EDT Urine Nitrite NEGATIVE2 09/21/2020 06:30 EDT Urine Protein Dipstick NEGATIVE2 09/21/2020 06:30 EDT Urine Glucose Dipstick NEGATIVE2 09/21/2020 06:30 EDT Urine Ketones Dipstick NEGATIVE2 09/21/2020 06:30 EDT Urine Urobilinogen Dipstick 0.2 09/21/2020 06:30 EDT Urine Bilirubin Dipstick NEGATIVE2 09/21/2020 06:30 EDT Urine Blood Dipstick SMALL2 (Abnormal) 09/21/2020 06:30 EDT Ur WBC 2-5 (Abnormal) 09/21/2020 06:30 EDT Ur Bacteria 1+ (Abnormal) 09/21/2020 06:30 EDT Ur Mucous 1+ (Abnormal) 09/21/2020 06:30 EDT Ur Squamous Epithelial Cells 0-2 09/21/2020 06:30 EDT Urine Culture if Indicated Not Indicated 09/21/2020 06:30 EDT TSH <.005 mcInt Units/mL (Low) 09/20/2020 19:57 EDT Iron Level 159 mcg/dL 09/20/2020 19:57 EDT % Iron Saturation 62.4 % (High) 09/20/2020 19:57 EDT Ferritin Level 491.8 ng/mL (High) 09/20/2020 19:57 EDT TIBC 255.0 mcg/dL 09/20/2020 19:57 EDT ABO/Rh (ECHO) A POS 09/20/2020 18:12 EDT ABO/Rh Repeat A POS 09/20/2020 17:42 EDT Antibody Screen Negative ABSC 09/20/2020 18:12 EDT RBC Product Ready 09/20/2020 18:51 EDT RBC Product Ready RBC Ready 09/20/2020 17:59 EDT # of Units: 2 Units 09/20/2020 17:59 EDT Crossmatch Computer XM OK 09/20/2020 18:12 EDT Crossmatch Computer XM OK 09/20/2020 18:12 EDT Electronically signed by Alonzo, [facility] Conversion Gardening Instructor Cerner at 07/05/2022 11:43 PM CDT documented in this encounter Plan of Treatment Not on file documented as of this encounter Visit Diagnoses Not on filedocumented in this encounter
--- OUTSIDE RECORDS SUMMARY | 2025-02-20 18:46 | XMS_ITS | Encounter Summary ---
Author Organization [employer] ([place], [place], [place], [place], [place]) Address [address] [place] [address] Care Team Providers Care Cereal Supervisor Name Role Phone Unavailable Primary Care Provider Unavailabl e Encounter Details Date Type Department Care Team (Late st Contact Info) Description 09/22/2020 Transcribed Document [facility] Radiology [address] [place] [address] Messi Mcgarry MD [address] [place] [address] [address] [place] [id number] Social History Tobacco Use Types Packs/Day Years Used Date Smoking Tobacco: Never Assessed Comments Unknown Sex and Gender Information Value Date Recorded Sex Assigned at Not on file Legal Sex Female 7:22 PM CDT Gender Identity Not on file Sexual Orientation Not on file documented as of this encounter Miscellaneous Notes * Cerner Conversion Note - Messi Mcgarry MD - 09/22/2020 9:28 AM EDT Patient: ABBEY MEADE Age: 80 years Sex: Female : 1940 Associated Diagnoses: None Author: MESSI MCGARRY MD-INT Subjective Admit information: Tx From: [facility] ER . Source of history: Self, Family member. Present at bedside: Family member. PCP: Dr. Andrea DOFadi: 09/20/2020 CODE STATUS: Full code Referral source: Emergency department. Chief Complaint 1. Severe weakness 2. Ongoing melena 3. Exertional dyspnea History of Present Illness This is 80-year-old female presented to the [facility] ER with above-mentioned complaints. According to [...] dizzy and weak. She went to the [facility] ER where work-up revealed hemoglobin of [...] Hiatal hernia, sundeep erosions, camerons uilcer *Surgeon(s) CAROL MOORE MD-GAE (Surgeon/Proceduralist, [facility]) *Findings Esophagus was normal except for [...] reported above. She is now tolerating diet. Health Status Allergies: Allergic Reactions (Selected) Severity [...] chloride 20 mEq oral tablet, extended release: 40 mEq, 2 Tab, Oral, 1-Time potassium chloride 20 mEq oral tablet, extended [...] 24 hrs) Last Charted Minimum Maximum Temp 98.6 (SEP 22 04:00) 98.6 (SEP 22 04:00) 98.3 (SEP 21:00) Apical HR H 103 (SEP 21 20:04) H 103 (SEP 21 20:04) H 103 (SEP 21 20:04) Mon HR 88 (SEP 22 06:00) 81 (SEP 21 23:00) 113 (SEP 21 15:00) Resp Rate H 21 (SEP 22 06:00) L 12 (SEP 21 17:00) H 35 (SEP 21 19:00) SBP H 155 (SEP 22 06:00) 128 (SEP 22 03:00) H 182 (SEP 21:00) DBP 67 (SEP 22 06:00) L 59 (SEP 21 12:00) H 101 (SEP 21 19:00) MAP 97 (SEP 22 06:00) 85 (SEP 21 12:00) 124 (SEP 21 19:00) SpO2 96 (SEP 22 00:00) L 93 (SEP 21 14:00) 100 (SEP 21 15:00) General: Alert and oriented, No acute distress. [...] Results Review No Radiology Results Found SEP 22 06:03 141 111 7 / H 109 L 3.1 25 L 0.30 \ SEP 22 06:03 \ L 8.0 / 5.6 L 156 / L 25.1 \ Impression and Plan Assessment and Plan: Diagnosis. DIAGNOSIS: Hypokalemia, now replacing Acute GI bleed with melanotic stools, present on admission. Continue with Protonix drip and likely EGD today. Acute blood loss anemia, due to above. Received blood transfusion. Continue to monitor H&H and transfuse as needed. Tachycardia, due to above. Resolved Essential hypertension. Stable. Chronic back pain History of hiatal hernia PLAN: Replace electrolytes and potassium as needed. Continue to monitor H&H. Follow with GI instructions and recommendations. Can move to [facility] bed. Discussed with the patient this morning and she knows the plan. Discussed with the ICU nursing staff. DC planning: Likely tomorrow. documented in this encounter Plan of Treatment Not on file documented as of this encounter Visit Diagnoses Not on filedocumented in this encounter
--- OUTSIDE RECORDS SUMMARY | 2025-02-20 18:46 | XMS_ITS | Encounter Summary ---
Author Organization [employer] ([place], [place], [place], [place], [place]) Address [address] [place] [id number] Care Team Providers Care Blueprint Clerk Name Role Phone Unavailable Primary Care Provider Unavailabl e Encounter Details Date Type Department Care Team (Late st Contact Info) Description 09/21/2020 Transcribed Document [facility] Family Medicine [address] [place] [address] ProviderShannan MD [address] [place] [address] Social History Tobacco Use Types Packs/Day Years Used Date Smoking Tobacco: Never Assessed Comments Unknown Sex and Gender Information Value Date Recorded Sex Assigned at Not on file Legal Sex Female 7:22 PM CDT Gender Identity Not on file Sexual Orientation Not on file documented as of this encounter Miscellaneous Notes * Cerner Conversion Note - Historical ProviderMD - 09/21/2020 5:00 AM CDT Chart Check - Review Order Profile Entered On: 09/21/2020 5:01 EDT Performed On: 09/21/2020 5:00 EDT by Alyce Parker Rn Chart Check Powerplans Initiated/Discontinued as Appropriate : Yes All Active Orders Reviewed : Yes Alyce Parker Rn - 09/21/2020 5:01 EDT Electronically signed by Alonzo [facility] Conversion Bakery Associate Cerner at 07/05/2022 11:55 PM CDT documented in this encounter Plan of Treatment Not on file documented as of this encounter Visit Diagnoses Not on filedocumented in this encounter
--- OUTSIDE RECORDS SUMMARY | 2025-02-20 18:46 | XMS_ITS | Encounter Summary ---
Author Organization [employer] ([place], [place], [place], [place], [place]) Address [address] [place] [address] Care Team Providers Care Replenisher Name Role Phone Unavailable Primary Care Provider Unavailabl e Encounter Details Date Type Department Care Team (Late st Contact Info) Description 09/21/2020 Transcribed Document [facility] [place] [address] [place] [address] Provider, MD Shannan [address] [place] [address] Social History Tobacco Use Types Packs/Day Years Used Date Smoking Tobacco: Never Assessed Comments Unknown Sex and Gender Information Value Date Recorded Sex Assigned at Not on file Legal Sex Female 7:22 PM CDT Gender Identity Not on file Sexual Orientation Not on file documented as of this encounter Miscellaneous Notes * Cerner Conversion Note - Historical Provider, - 09/21/2020 5:[address] [facility] Endo IntraOp Summary Primary Physician: CAROL MOORE MD-GAE Finalized Date/Time: 09/21/20 17:38:04 Pt. Name: ABBEY MEADE/Sex: 1940 Female Med Rec #: [id number] Physician: GISEL WOLFF MD-INT Financial #: [id number] Pt. Type: I Room/Bed: [facility] Admit/Disch: 09/20/20 17:22:00 - Institution: [facility] Endo - Case Attendance Entry 1 Entry 2 Entry 3 Case Attendee CAROL MOORE MD-GAE Walker, Mary B Rn THOM HALL, Knotter Hand Role Performed Surgeon/Proceduralist, Adobe Cq Developer, First Scrub, First First Time In 09/21/20 17:07:00 09/21/20 16:26:00 09/21/20 16:26:00 Time Out 09/21/20 17:25:00 09/21/20 17:25:00 09/21/20 17:25:00 Procedure Esophagogastroduodenosco Esophagogastroduodenosco Esophagogastroduodenosco py, Gastric Biopsy py, Gastric Biopsy py, Gastric Biopsy Other Attendee Superficial Wound Closed By: Last Modified By: Nicolasa Mon, Rn Nicolasa Mon, Rn Nicolasa Mon Rn 09/21/20 17:25:08 09/21/20 17:25:08 09/21/20 17:25:08 Entry 4 Entry 5 Case Attendee Nicole Ramires, MARK SAMANIEGO MD-ANS Role Performed LOAN REVIEWER/Nurse Softball Coach Anesthesiologist of Record Time In 09/21/20 16:45:00 09/21/20 16:45:00 Time Out 09/21/20 17:25:00 09/21/20 17:25:00 Procedure Esophagogastroduodenosco Esophagogastroduodenosco py, Gastric Biopsy py, Gastric Biopsy Other Attendee Superficial Wound Closed By: Last Modified By: Nicolasa Mon, Nicolasa Daniels Rn 09/21/20 17:25:08 09/21/20 17:38:03 [facility] Endo - Case Attendance Audit 09/21/20 17:38:03 Fried Cake Maker: [id number] Modifier: [id number] <+> 5 Case Attendee <+> 5 Role Performed <+> 5 Time In <+> 5 Time Out <+> 5 Procedure 09/21/20 17:25:08 Fried Cake Maker: [id number] Modifier: [id number] 1 <+> Time Out 1 <*> Procedure Esophagogastroduodenoscopy, Gastric Biopsy 2 <+> Time Out 2 <*> Procedure Esophagogastroduodenoscopy, Gastric Biopsy 3 <+> Time Out 3 <*> Procedure Esophagogastroduodenoscopy, Gastric Biopsy 4 <+> Time Out 4 <*> Procedure Esophagogastroduodenoscopy, Gastric Biopsy 09/21/20 17:19:56 Fried Cake Maker: [id number] Modifier: [id number] 1 <*> Procedure Esophagogastroduodenoscopy 2 <*> Procedure Esophagogastroduodenoscopy 3 <*> Procedure Esophagogastroduodenoscopy 4 <*> Procedure Esophagogastroduodenoscopy 09/21/20 17:07:26 Fried Cake Maker: [id number] Modifier: [id number] 1 <*> Time In 09/21/20 16:26:00 1 <*> Procedure Esophagogastroduodenoscopy 09/21/20 16:45:46 Fried Cake Maker: [id number] Modifier: [id number] 1 <+> Time In 1 <*> Procedure Esophagogastroduodenoscopy 2 <*> Procedure Esophagogastroduodenoscopy 3 <*> Procedure Esophagogastroduodenoscopy 4 <*> Case Attendee DELANEY NORTH APRN 4 <*> Time In 09/21/20 16:26:00 4 <*> Procedure Esophagogastroduodenoscopy 09/21/20 16:35:38 Fried Cake Maker: [id number] Modifier: [id number] <+> 2 Case Attendee <+> 2 Role Performed <+> 2 Time In <+> 2 Procedure <+> 3 Case Attendee <+> 3 Role Performed <+> 3 Time In <+> 3 Procedure <+> 4 Case Attendee <+> 4 Role Performed <+> 4 Time In <+> [address] [facility] Endo - Case times Entry 1 Patient In Room Time 09/21/20 16:26:00 Out Room Time 09/21/20 17:25:00 Anesthesia Start Time 09/21/20 16:45:00 Stop Time 09/21/20 17:25:00 Surgery / Procedure Times Start Time 09/21/20 17:13:00 Stop Time 09/21/20 17:21:00 Last Modified By: Nicolasa Mon Rn 09/21/20 17:21:06 [facility] Endo - Case times Audit 09/21/20 17:25:07 Fried Cake Maker: [id number] Modifier: [id number] <+> 1 Out Room Time <+> 1 Stop Time 09/21/20 17:21:06 Fried Cake Maker: [id number] Modifier: [id number] <+> 1 Stop Time 09/21/20 17:13:35 Fried Cake Maker: [id number] Modifier: [id number] 1 <*> Start Time 09/21/20 16:45:00 09/21/20 17:07:57 Fried Cake Maker: [id number] Modifier: [id number] <+> 1 Start Time <+> [address] [facility] Endo - Cultures and Spec Summary Entry 1 Cultrures and Specimens Specimen Ordered: Yes Test(s) Routine/Path-Lab Requested/Final Disposition Last Modified By: Nicolasa Mon, Kendall 09/21/20 17:20:12 [facility] Endo - General Case Vacuum Bottle Assembler 1 Case Information OR Out of Department [facility] Case Level 1 Room Verified Yes Wound Class II - Clean-Contaminated Specialty Gastroenterology Anesthesia Type [facility] Class 3 Diagnosis Preop Diagnosis Gi BLEED Postop Same As Preop No Postop Diagnosis Hiatal hernia, sundeep erosions, camerons uilcer Last Modified By: Nicolasa Mon Rn 09/21/20 16:36:23 [facility] Endo - General Case Data Audit 09/21/20 17:20:56 Fried Cake Maker: [id number] Modifier: [id number] 1 <*> Postop Diagnosis Hiatal hernia, sundeep erosions 09/21/20 17:17:55 Fried Cake Maker: [id number] Modifier: [id number] <+> [address] [facility] Endo - Surgical Procedures Entry 1 Entry 2 Procedure Esophagogastroduodenosco Gastric Biopsy py Modifiers Additional Camerons ulcer biopsy Procedure Description Primary Procedure Yes No Primary Surgeon CAROL MOORE MD-GAE MARTIN, KATHLEEN, MD-GAE Start 09/21/20 17:13:00 09/21/20 17:13:00 Stop 09/21/20 17:21:00 09/21/20 17:21:00 Physician States Cecum Reached Anesthesia Type [facility] Specialty Gastroenterology Gastroenterology Wound Class II - Clean-Contaminated II - Clean-Contaminated Last Modified By: Nicolasa Mon, Rn Nicolasa Mon Rn 09/21/20 16:36:39 09/21/20 17:19:54 [facility] Endo - Surgical Procedures Audit 09/21/20 17:24:26 Fried Cake Maker: [id number] Modifier: [id number] <+> 1 Stop <+> 2 Stop 09/21/20 17:19:54 Fried Cake Maker: [id number] Modifier: [id number] <+> 2 Procedure <+> 2 Primary Procedure <+> 2 Primary Surgeon <+> 2 Specialty <+> 2 Start <+> 2 Wound Class <+> 2 Anesthesia Type <+> 2 Additional Procedure Description 09/21/20 17:17:56 Fried Cake Maker: [id number] Modifier: [id number] <+> 1 Start Case Comments <None> Finalized By: Nicolasa Mon, Rn Document Signatures Signed By: Nicolasa Mon, Rn 09/21/20 17:25 Nicolasa Mon Rn 09/21/20 17:38 Unfinalized History Date/Time Username Reason for Unfinalizing Freetext Reason for Unfinalizing 09/21/20 17:36 [id number] Finish Documentation Electronically signed by Alonzo [facility] Conversion Rectifier Operator Cerner at 07/05/2022 11:54 PM CDT documented in this encounter Plan of Treatment Not on file documented as of this encounter Visit Diagnoses Not on filedocumented in this encounter
--- OUTSIDE RECORDS SUMMARY | 2025-02-20 18:47 | XMS_ITS | Encounter Summary ---
Author Organization [employer] ([place], [place], [place], [place], [place]) Address [address] [place] [address] Care Team Providers Care Manual Training Teacher Name Role Phone Unavailable Primary Care Provider Unavailabl e Encounter Details Date Type Department Care Team (Late st Contact Info) Description 09/20/2020 Transcribed Document [facility] [place] [address] [place] [address] ProviderShannan MD [address] [place] [address] Social History Tobacco Use Types Packs/Day Years Used Date Smoking Tobacco: Never Assessed Comments Unknown Sex and Gender Information Value Date Recorded Sex Assigned at Not on file Legal Sex Female 7:22 PM CDT Gender Identity Not on file Sexual Orientation Not on file documented as of this encounter Miscellaneous Notes * Cerner Conversion Note - Shannan ProviderMD - 09/20/2020 5:22 PM CDT Admission History, Adult Entered On: 09/20/2020 18:23 EDT Performed On: 09/20/2020 17:22 EDT by Ruma Fish Rn Advance Directive Patient has Advance Directive *Q : Yes, Advance Directive not with the patient Advance Directive Type : Living will, Medical durable power of instrument man (proxy) Copy Advance Directive Verified/on Chart : No uRma Fish Rn - 09/20/2020 18:14 EDT Anesthesia/Transfusion History Family History of Anesthesia Reaction : Prior transfusion without reaction Blood Transfusion Acceptable to Patient : Yes Transfusion History : Prior anesthesia without reaction Family History of Anesthesia Reaction : None Ruma Fsih Rn - 09/20/2020 18:14 EDT Functional Assessment Living Situation : Home Patient Lives With : Alone Persons Assisting Patient at Home : Alone Current Daily Living Assistance : None FLORES Hx Falls Immediate/Within 3 Months : No Current Home Treatments : None Ruma Fish Rn - 09/20/2020 18:14 EDT General Info Contact Password : Maya Amaya Family/Rep/Phys Notified of Admit : No Emergency Contact #1 : Christiano White Emergency Contact #1 Emergency Contact #1 Relationship : Son Emergency Contact #2 : Phyllis Gregorio Emergency Contact #2 Emergency Contact #2 Relationship : Daughter Primary Language : [place] Communication Barrier : None Order Fulfillment Specialist Needed : No Ruma Fish Rn - 09/20/2020 18:14 EDT Fall Risk Scales ABCs Fall Injury Risk Identification : Coagulation ABC Fall Injury Risk : Moderate to high injury risk Injury Moderate to High Risk Interventions : Bed alarm on, Patient room close to nurses station, Transport methods appropriate to patient FLORES Hx Falls Immediate/Within 3 Months : Yes Flores Secondary Diagnosis : Yes FLORES Use of Ambulatory Aid : Bed rest/Nurse assist FLORES IV Therapy or IV Access : Yes Flores Gait/Transferring : Normal, bedrest, immobile Flores Mental Status : Oriented to own ability Flores Fall Risk Score : 60 FLORES Fall Scale Risk Level : 46 or > High Risk [place] Fall Interventions : Adequate lighting, Bed in low position, Call device within reach, Frequent orientation to surroundings, Hourly comfort/safety rounds, Non-slip footwear, Personal items within reach, Reinforced to call for assistance before getting out of bed, Room free of clutter/spills, Upper side-rails up, Wheels locked, Wires/Cords secured Barriers to Learning : None evident Learning Style Preferences Family : Verbal explanation Learning Style Preferences Patient : Verbal explanation Fall Risk Scale Calc Temp : 0 Ruma Fish Rn - 09/20/2020 18:14 EDT Health Histories Smoking Status : Never (less than 100 in lifetime; none in last 30 days) Smokeless Tobacco Status : Never Ruma Fish Rn - 09/20/2020 18:14 EDT Social History (As Of: 09/20/2020 18:23:20 EDT) Height and Weight, Clinical Dosing Height Source : Estimated Height Entry Format : [place] Height, Feet : 5 ft(Converted to: 152 cm, 60 Inch) Height, Inches : 7 Inch(Converted to: 0 ft 7 Inch, 17.78 cm) Clinical Height : 170.18 cm Weight Source : Bed scale Weight Entry Format : Metric, kilograms Weight, Kilograms : 77.8 kg(Converted to: 171 lb 8 oz) Clinical Dosing Weight : 77.8 kg Body Surface Area (BSA) : 1.89 m2 Body Mass Index : 26.9 kg/m2 (HI) [place] Body Weight : 61 kg Ruma Fish Rn - 09/20/2020 18:14 EDT Infectious Disease History Has the patient ever been tested for COVID-19? : Yes, Patient stated results Negative Where was the COVID-19 Testing completed? : [facility] ED Where are the test results? : Paper Copy on chart Date of COVID-19 test known? : Yes Date of COVID-19 Test : 09/20/2020 EDT Does patient have symptoms of COVID-19? : No COVID19 Screening : No Experiencing Infectious Disease Symptoms : No symptoms Physical contact outside [place] in the last 30 days : No Infectious Disease History : None Tuberculosis Symptoms : None Ruma Fish Rn - 09/20/2020 18:14 EDT Influenza Vaccine Asmt, Adult Previous Vaccines from Immunization Schedule : No qualifying data available. Influenza Immunization, Current Season : Yes Ruma Fish Rn - 09/20/2020 18:14 EDT Pneumococcal Vaccine Previous Vaccines from Immunization Schedule : No qualifying data available. Pneumonia Immunization Received : Yes Ruma Fish Rn - 09/20/2020 18:14 EDT Order Details Order Detail : N/A Patient Needs Meds Crushed/Liquid : No Ruma Fish Rn - 09/20/2020 18:14 EDT Nutrition History Eating Poorly Due to Decreased Appetite : Yes Unplanned Weight Loss in Past 3-6 Months : No Malnutrition Screening Tool Total(mal) : 1 Malnutrition Screening Tool Risk Level : Patient not at risk Ruma Fish Rn - 09/20/2020 18:14 EDT [place] Suicide Severity Rating Scale (C-SSRS) CSSRS Past Month Wish to be : No CSSRS Past Month Suicidal Thoughts : No CSSRS Lifetime Suicide Behavior : No Suicide Severity Rating Score : 0 Suicide Severity Rating : No Additional Care Required at this time Ruma Fish Rn - 09/20/2020 18:14 EDT Psychosocial History Currently in Unsafe Situation : No Ruma Fish Rn - 09/20/2020 18:14 EDT Sleep Apnea Risk Assmt Hx of Obstructive Sleep Apnea Diagnosis : No Snore Loudly : No Tired, Fatigued, or Sleepy During Day : No Observed Stopping Breathing During Sleep : No Have/Are Being Treated for Hypertension : Yes BMI Greater Than 35 kg/m2 : No Age over 50 Years Old : Yes Neck Circumference Greater Than 40 cm : No Gender Male : No STOP-BANG Sleep Apnea Risk Level Score : 2 Ruma Fish Rn - 09/20/2020 18:14 EDT Valuables and Belongings Personal Device Disposition : Bedside Personal Devices : Glasses Valuables and Belongings : Clothing, Personal devices, Personal items Ruma Fish Rn - 09/20/2020 18:23 EDT Clothing : Sleepwear Clothing Disposition : Bedside Personal Items : Cell phone Personal Items Disposition : Bedside Ruma Fish Rn - 09/20/2020 18:14 EDT Electronically signed by Rory Rosado Conversion Rehabilitation Medicine Physician Cerner at 07/05/2022 11:59 PM CDT documented in this encounter Plan of Treatment Not on file documented as of this encounter Visit Diagnoses Not on filedocumented in this encounter
--- OUTSIDE RECORDS SUMMARY | 2025-02-20 18:47 | XMS_ITS | Encounter Summary ---
Author Organization [employer] ([place], [place], [place], [place], [place]) Address [address] [place] [address] Care Team Providers Care Canvas Shop Laborer Name Role Phone Unavailable Primary Care Provider Unavailabl e Encounter Details Date Type Department Care Team (Late st Contact Info) Description 09/20/2020 Transcribed Document [facility] [address] [place] [address] ProviderShannan MD [address] [place] [address] Social History Tobacco Use Types Packs/Day Years Used Date Smoking Tobacco: Never Assessed Comments Unknown Sex and Gender Information Value Date Recorded Sex Assigned at Not on file Legal Sex Female 7:22 PM CDT Gender Identity Not on file Sexual Orientation Not on file documented as of this encounter Miscellaneous Notes * Cerner Conversion Note - Shannan Nugent MD - 09/20/2020 5:58 PM CDT Education-(VTE) / (DVT) Entered On: 09/20/2020 18:12 EDT Performed On: 09/20/2020 17:58 EDT by Ruma Fish Rn Teaching/Learning Assessment Barriers To Learning : None evident Individuals Taught : Patient, Child Readiness to Learn : Cooperative Learning Style Preferences Patient : Verbal explanation Learning Style Preferences Family : Verbal explanation Ruma Fish Rn - 09/20/2020 18:11 EDT Education Topics: VTE/DVT Education Topics: VTE/DVT Activity Limitations/Expectations : Verbalizes understanding VTE/DVT prophylaxis : Verbalizes understanding Medications : Verbalizes understanding Sequential Compression Device : Verbalizes understanding Risk for developing a VTE : Verbalizes understanding Signs and symptoms of a VTE : Verbalizes understanding Treatment/prophylaxis for VTE : Verbalizes understanding Encourage early ambulation : Verbalizes understanding VTE/DVT, Other : Verbalizes understanding Ruma Fish Rn - 09/20/2020 18:11 EDT Electronically signed by Alonzo, [facility] Conversion Welder Production Line Combination Cerner at 07/05/2022 11:49 PM CDT documented in this encounter Plan of Treatment Not on file documented as of this encounter Visit Diagnoses Not on filedocumented in this encounter
--- OUTSIDE RECORDS SUMMARY | 2025-02-20 18:47 | XMS_ITS | Encounter Summary ---
Author Organization [employer] ([place], [place], [place], [place], [place]) Address [address] [place] [address] Care Team Providers Care Drophammer Operator Name Role Phone Unavailable Primary Care Provider Unavailabl e Encounter Details Date Type Department Care Team (Late st Contact Info) Description 09/20/2020 Transcribed Document [facility] [place] [address] [place] [address] ProviderShannan MD [address] [place] [address] Social History Tobacco Use Types [...] Nugent MD - 09/20/2020 5:58 PM CDT Consult Phone Call Documentation Entered On: 09/20/2020 18:40 EDT Performed On: 09/20/2020 17:58 EDT by Ruma Fish Rn Phone Call for Consults Consult Phone Call/Page Attempt : First call Consult Reason : GI Bleed HgB <7 Physician Requesting Consult : GISEL WOLFF MD-INT Physician Requested for Consult : JODIE GARY MD Provider Service Notified Name : Gastroenterology Physician Covering for Consult : JODIE GARY MD Date and Time Call Returned : 09/20/2020 18:14 EDT Physician Returning Call : JODIE GARY MD Var[place], Alisha L, Rn - 09/20/2020 18:39 EDT Electronically signed by Alonzo [facility] Conversion Director [employer] Cerner at 07/05/2022 11:37 PM CDT documented in this encounter Plan of Treatment Not on file documented as of this encounter Visit Diagnoses Not on filedocumented in this encounter
--- OUTSIDE RECORDS SUMMARY | 2025-02-20 18:47 | XMS_ITS | Encounter Summary ---
Author Organization [employer] ([place], [place], [place], [place], [place]) Address [address] [place] [address] Care Team Providers Care Fund Director Name Role Phone Unavailable Primary Care Provider Unavailabl e Encounter Details Date Type Department Care Team (Late st Contact Info) Description 09/21/2020 Transcribed Document [facility] [place] [address] [place] [address] ProviderShannan MD [address] [place] [address] Social History Tobacco Use Types Packs/Day Years Used Date Smoking Tobacco: Never Assessed Comments Unknown Sex and Gender Information Value Date Recorded Sex Assigned at Not on file Legal Sex Female 7:22 PM CDT Gender Identity Not on file Sexual Orientation Not on file documented as of this encounter Miscellaneous Notes * Cerner Conversion Note - Historical ProviderMD - 09/21/2020 4:00 AM CDT Height and Weight, Routine Entered On: 09/21/2020 5:00 EDT Performed On: 09/21/2020 4:00 EDT by Alyce Parker Rn Height and Weight, Routine Routine Weight Source : Bed scale Routine Weight Entry Format : Metric Routine Weight, Kilograms : 79 kg(Converted to: 174 lb 3 oz) Routine Weight Calculation : 79 kg Height Source : Estimated Height Entry Format : [place] Height, Feet : 5 ft Height, Inches : 7 Inch Clinical Height : 170.18 cm Body Surface Area (BSA), Routine : 1.91 m2 Body Mass Index (BMI), Routine : 27.28 kg/m2 Alyce Parker Rn - 09/21/2020 5:00 EDT documented in this encounter Plan of Treatment Not on file documented as of this encounter Visit Diagnoses Not on filedocumented in this encounter
--- OUTSIDE RECORDS SUMMARY | 2025-02-20 18:47 | XMS_ITS | Encounter Summary ---
Author Organization [employer] ([place], [place], [place], [place], [place]) Address [address] [place] [address] Care Team Providers Care Communications Officer Name Role Phone Unavailable Primary Care Provider Unavailabl e Encounter Details Date Type Department Care Team (Late st Contact Info) Description 09/23/2020 Transcribed Document [facility] [place] [address] [place] [address] ProviderShannan MD [address] [place] [address] Social History Tobacco Use Types Packs/Day Years Used Date Smoking Tobacco: Never Assessed Comments Unknown Sex and Gender Information Value Date Recorded Sex Assigned at Not on file Legal Sex Female 7:22 PM CDT Gender Identity Not on file Sexual Orientation Not on file documented as of this encounter Miscellaneous Notes * Cerner Conversion Note - Historical ProviderMD - 09/23/2020 2:00 AM CDT Block Mechanic Details Entered On: 09/23/2020 5:32 EDT Performed On: 09/23/2020 2:00 EDT by Yue Fuentes RN Order Details Transport Mode Order Detail : Wheelchair Isolation Precautions Order Detail : Standard Precautions Order Detail : N/A IV Order Detail : 0 Oxygen Order Detail : 0 Nurse Collect Order Detail : 0 Lift/Transfer : Minimal Central Line Order Detail : No Room Service : Appropriate Arterial Line : No Patient Needs Meds Crushed/Liquid : No Yue Fuentes RN - 09/23/2020 5:32 EDT documented in this encounter Plan of Treatment Not on file documented as of this encounter Visit Diagnoses Not on filedocumented in this encounter
--- OUTSIDE RECORDS SUMMARY | 2025-02-20 18:47 | XMS_ITS | Clinical Summary ---
Author Organization [employer] Address [address] [place] [address] Phone Care Team Providers Care Center Sales And Service Associate Name Role Phone Hawk Davis MD Primary Care Provider + [phone] Allergies Active Allergy Reactions Criticality Noted Date Comments Haloperidol Lactate Other (See Comments) 2013 Facial distortion Medications simvastatin (ZOCOR) 20 mg tablet Take 40 mg by mouth nightly. Active aspirin 81 mg tablet Take 81 mg by mouth daily. Active omeprazole (PRILOSEC) 20 mg Take by mouth 2 times daily. Active rizatriptan (MAXALT-LOCATE TECHNICIAN) 10 mg disintegrating tablet Take 10 mg by mouth once as needed for Migraine. May repeat in 2 hours if needed Active OXYCODONE HCL/ACETAMINOPHEN (PERCOCET ORAL) Take by mouth 4 times daily. Active POTASSIUM CHLORIDE ORAL Take 40 mEq by mouth 2 times daily. 20meq 2 tabs BID Active multivitamin (THERAGRAN) Oral Tablet Take 1 Tab by mouth daily. Active Vitamin E 400 unit Oral Tablet Take 1 Tab by mouth daily. Active CA CARBONATE/VITAMIN D3/VIT K (VIACTIV ORAL) Take 1 Each by mouth 2 times daily. Active propranolol (INDERAL) 10 mg Oral Tablet Take 10 mg by mouth 3 times daily. Active zolpidem (AMBIEN) 10 mg Oral Tablet Take 10 mg by mouth nightly. Active baclofen (LIORESAL) 20 mg Oral Tablet Take 20 mg by mouth 4 times daily. Active methimazole (TAPAZOLE) 5 mg Oral TabletIndications:H yperthyroidism Take 0.5 Tabs by mouth daily. 5 Active Active Problems Problem Noted Date Diagnosed Date Encounter for long-term (current) use of medicat ions 12/21/2014 Hypokalemia 07/17/2014 Multinodular goiter Juan's disease Subclinical hyperthyroidism Surgical History Surgery Date Site/Laterality Comments HYSTERECTOMY CHOLECYSTECTOMY DENTAL SURGERY COLONOSCOPY CATARACT REMOVAL 07/09/2013 Right RIGHT EYE CATARACT EXTRACTION WITH PHACOEMULSIFICATION AND INTRAOCULAR LENS; Surgeon: Evan López MD; Location: [facility]; Service: Ophthalmology Medical devices from this surgery are in the Medical Devices section. CATARACT REMOVAL 07/23/2013 Eye/Left LEFT EYE CATARACT EXTRACTION WITH PHACOEMULSIFICATION AND INTRAOCULAR LENS; Surgeon: Evan López MD; Location: [facility]; Service: Ophthalmology Medical devices from this surgery are in the Medical Devices section. NASAL SEPTUM SURGERY Medical History Medical History Date Comments Hypercholesteremia Depressed Hypertension Heartburn Diaphragmatic hernia without mention of obstruction or gangrene Headache(784.0) migraine Thyroid disease nodules Vaso-vagal reaction when IVs sta rted in Top of hand Multinodular goiter Juan's disease Hypokalemia Subclinical hyperthyroidism Family History Medical History Relation Name Comments Emphysema Father Anesth Problems Neg Hx Relation Name Status Comments Father Social History Tobacco Use Types Packs/Day Years Used Date Smoking Tobacco: Never Smokeless Tobacco: Never Alcohol Use Standard Drinks/Week Comments No 0 (1 standard drink = 0.6 oz pur e alcohol) Comments No Sex and Gender Information Value Date Recorded Sex Assigned at Not on file Legal Sex Female 3:18 PM EDT Gender Identity Not on file Sexual Orientation Not on file Last Filed Vital Signs Vital Sign Reading Time Taken Comments Blood Pressure 158/81 06/24/2015 11:18 AM EDT Pulse 65 06/24/2015 11:18 AM EDT Temperature 36.4 C (97.5 F) 07/23/2013 10:10 AM EDT Respiratory Rate 12 06/24/2015 11:18 AM EDT Oxygen Saturation 99% 07/23/2013 10:10 AM EDT Inhaled Oxygen Concentration - - Weight 77.7 kg (171 lb 3.2 oz) 06/24/2015 11:18 AM EDT Height 167.6 cm (5' 6 ) 06/24/2015 11:18 AM EDT Body Mass Index 27.63 06/24/2015 11:18 AM EDT Plan of Treatment Health Maintenance Due Date Last Done Comments Wellness Exam Medicare 1945 DTaP/TDaP/Td (1 - Tdap) 1961 Pneumococcal Vaccine 50+ (1 of 1 - PCV) 1992 Zoster (1 of 2) 1992 Bone Density Screening 08/03/2007 RSV or 60+ (1 - 1-d ose 75+ series) 2017 COVID-19 Vaccine ( - 2024-2 6 season) 2024 Influenza Vaccine (#1) 2024 Hepatitis B Vaccine Aged Out No longe r eligible based on patient's age to complete this topic Meningococcal B Vaccine Aged Out No l onger eligible based on patient's age to complete this topic Medical Devices Implanted Type Area Filler Shredder Helper Device Identifier Shelf Expiration Date Model / Serial / Lot Lens Intraocular 19.0 Diopter Acrysof Iq 13.0mm Length 6.0mm - [id number] Implanted:Qty: 1 on 07/09/2013 by Evan López MD at [facility] Right: Eye [employer] [facility]:SURG 04/19/2018 [id number]-72. 0 / [id number] / Lens Intraocular 19.0 Diopter Acrysof Iq 13.0mm Length 6.0mm - [id number] Implanted:Qty: 1 on 07/23/2013 by Evan López MD at [facility] Left: Eye [employer]:SURG 02/16/2018 [id number]. 0 / [id number] / Insurance MEDICARE [place] PART A AND B SUPPLEMENTAL MEDICARE [place] PART A AND B SUPPLEMENTAL Advance Directives For more information, please contact: [phone] Documents on File Type Date Recorded Patient Game Artist Expl anation Advance Directives/DNR 05/19/2011 8:39 AM Care Teams Center Sales And Service Associate Relationship Specialty Start Date End Date Hawk Davis MD [address] [place] [address] [place] [id number] PCP - General Internal Medicine-Adolescent Medicine 07/01/13
--- OUTSIDE RECORDS SUMMARY | 2025-02-20 18:47 | XMS_ITS | Encounter Summary ---
Author Organization [employer] ([place], [place], [place], [place], [place]) Address [address] [place] [address] Care Team Providers Care Knurling Machine Operator Name Role Phone Unavailable Primary Care Provider Unavailabl e Encounter Details Date Type Department Care Team (Late st Contact Info) Description 09/21/2020 Transcribed Document [facility] [place] [address] [place] [address] ProviderShannan MD [address] [place], [place] [id number] Social History Tobacco Use Types Packs/Day Years Used Date Smoking Tobacco: Never Assessed Comments Unknown Sex and Gender Information Value Date Recorded Sex Assigned at Not on file Legal Sex Female 7:22 PM CDT Gender Identity Not on file Sexual Orientation Not on file documented as of this encounter Miscellaneous Notes * Cerner Conversion Note - Historical ProviderMD - 09/21/2020 11:01 AM CDT UM Authorization Entered On: 09/21/2020 11:01 EDT Performed On: 09/21/2020 11:01 EDT by KARISSA NUNEZ RN-Utilization Review Primary Insurance Authorization Authorization and Policy Numbers : Insurance 1 Health Plan: MEDICARE Policy Number: [id number] Authorization Number: Insurance 2 Health Plan: A[employer] N Policy Number: [id number] Authorization Number: Insurance Primary Name : MEDICARE Policy Number: [id number] Authorized Service Begin Date-Primary : 09/20/2020 EDT Historical Authorization Comments-Primary : No Authorization Comments Found KARISSA NUNEZ RN-Utilization Review - 09/21/2020 11:01 EDT documented in this encounter Plan of Treatment Not on file documented as of this encounter Visit Diagnoses Not on filedocumented in this encounter
--- OUTSIDE RECORDS SUMMARY | 2025-02-20 18:47 | XMS_ITS | Clinical Summary ---
Author Organization [facility] Address [address] [place] [address] Care Team Providers Care Car Designer Name Role Phone Taye Castillo DO Unavailable Hawk Davis MD Primary Care Provider Allergies Active Allergy Reactions Criticality Noted Date Comments Haloperidol Other (See Comments) Low 07/08/2013 Other reaction(s): Other (See Comments), Unknown - High Severity Facial distortion Facial distortion Medications ALPRAZolam (XANAX) 1 mg tablet Take 1 Tablet by mouth 2 times daily. Active amLODIPine (NORVASC) 5 mg tablet Take 5 mg by mouth daily. Active clopidogreL (PLAVIX) 75 mg tablet Take 1 Tablet by mouth daily. 2 Active escitalopram oxalate (LEXAPRO) 20 mg Tablet Take 1 Tablet by mouth daily. Active polyethylene glycol (GLYCOLAX;DAFNE AX) 17 gram/dose powder Take 17 g by mouth daily. Active QUEtiapine (SEROQUEL) 200 mg Tablet Take 200 mg by mouth every evening. Active atorvastatin (LIPITOR) 40 mg Tablet Take by mouth daily. 3 Active carvediloL (COREG) 25 mg Tablet Take by mouth 2 times daily. 3 Active methIMAzole (TAPAZOLE) 5 mg tablet Take 1 Tablet (5 mg) by mouth every other day. 15 Tablet 3 3 Active oxyCODONE-Aceta minophen (PERCOCET) 7.5-325 mg per tablet TAKE ONE TABLET BY MOUTH EVERY 6 HOURS MAY CAUSE DROWSINESS Active cyanocobalamin (Vitamin B-12) 1,000 mcg tablet Take 1,000 mcg by mouth daily. 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 Subclinical hyperthyroidism 04/26/2022 Hypercholesteremia 04/26/2022 Hypertension 04/26/2022 GI bleed 04/26/2022 Depression 04/26/2022 Anxiety 04/26/2022 PTSD (post-traumatic stress disorder) 04/26/2022 Chronic insomnia 04/26/2022 Lumbar neuralgia 04/26/2022 Family History Medical History Relation Name Comments Emphysema Father Relation Name Status Comments Father Social History Tobacco Use Types Packs/Day Years Used Date Smoking Tobacco: Never Assessed Comments Unknown Sex and Gender Information Value Date Recorded Sex Assigned at Not on file Legal Sex Female 5:20 PM EST Gender Identity Not on file Sexual Orientation Not on file Last Filed Vital Signs Vital Sign Reading Time Taken Comments Blood Pressure 128/78 08/29/2023 10:50 AM EDT Pulse - - Temperature - - Respiratory Rate - - Oxygen Saturation - - Inhaled Oxygen Concentration - - Weight 79.8 kg (176 lb) 08/29/2023 10:50 AM EDT Height 170.2 cm (5' 7 ) 08/29/2023 10:50 AM EDT Body Mass Index 27.57 08/29/2023 10:50 AM EDT Plan of Treatment Health Maintenance Due Date Last Done Comments Lipid Monitoring 08/03/1959 Tetanus Vaccination (Every 10 Years) 1960 Pneumococcal Vaccine: 50+ Ye ars (1 of 1 - PCV) 1992 Zoster-RZV(Shingrix) (1 of 2) 1992 Fall Risk Assessment 08/03/2007 Osteoporosis Screening 08/03/2007 RSV Vaccines (1 - 1-dose 75+ series) 2017 Advance Care Planning 03/19/2024 Depression Screening 03/19/2024 COVID-19 Vaccine ( - 2024- season) 2024 01/20/2021, 05/19/2020, 04/21/2020 Influenza Vaccination (#1) 2024 Insurance MEDICARE A[employer] Care Teams Car Designer Relationship Specialty Start Date End Date Hawk Dvais MD [address] [place] [id number] PCP - General Internal Medicine 08/16/22 Taye Castillo DO [address] [place] [address] Endocrinology/Diabetes/Met abolism 12/12/21
--- OUTSIDE RECORDS SUMMARY | 2025-02-20 18:47 | XMS_ITS | Encounter Summary ---
Author Organization [employer] ([place], [place], [place], [place], [place]) Address [address] [place] [address] Care Team Providers Care Undercar Specialist Name Role Phone Unavailable Primary Care Provider Unavailabl e Encounter Details Date Type Department Care Team (Late st Contact Info) Description 09/20/2020 Transcribed Document [facility] [place] Family Medicine [address] [place] [address] ProviderShannan MD [address] [place] [address] Social History Tobacco Use Types Packs/Day Years Used Date Smoking Tobacco: Never Assessed Comments Unknown Sex and Gender Information Value Date Recorded Sex Assigned at Not on file Legal Sex Female 7:22 PM CDT Gender Identity Not on file Sexual Orientation Not on file documented as of this encounter Miscellaneous Notes * Cerner Conversion Note - Shannan ProviderMD - 09/20/2020 10:02 PM CDT Pain Assessment Entered On: 09/23/2020 9:22 EDT Performed On: 09/23/2020 7:11 EDT by Petrona Rodriguez Intervention Information: acetaminophen-oxyCODONE Performed by Yue Fuentes RN on 09/23/2020 06:11:00 EDT acetaminophen-oxyCODONE,1.5Tab Oral,Pain (Moderate 4-6) Pain Assessment Pain Assessment : Follow-up assessment Pain Scale Goal : 3 Pain Scale Used : 0-10 Scale Pain Improved by Intervention : Yes Petrona Rodriguez - 09/23/2020 9:22 EDT Pain Scale Intensity : 3 Petrona Rodriguez - 09/23/2020 9:22 EDT Image 4 - Images currently included in the form version of this document have not been included in the text rendition version of the form. documented in this encounter Plan of Treatment Not on file documented as of this encounter Visit Diagnoses Not on filedocumented in this encounter
--- OUTSIDE RECORDS SUMMARY | 2025-02-20 18:47 | XMS_ITS | Encounter Summary ---
Author Organization [employer] ([place], [place], [place], [place], [place]) Address [address] [place] [address] Care Team Providers Care Wet Finisher Wool Name Role Phone Unavailable Primary Care Provider Unavailabl e Encounter Details Date Type Department Care Team (Late st Contact Info) Description 09/21/2020 Transcribed Document [facility] [place] Family Medicine [address] [place] [address] ProviderShannan MD [address] [place] [address] Social History Tobacco Use Types Packs/Day Years Used Date Smoking Tobacco: Never Assessed Comments Unknown Sex and Gender Information Value Date Recorded Sex Assigned at Not on file Legal Sex Female 7:22 PM CDT Gender Identity Not on file Sexual Orientation Not on file documented as of this encounter Miscellaneous Notes * Cerner Conversion Note - Shannan ProviderMD - 09/21/2020 2:43 PM CDT On Going Discharge Planning Entered On: 09/21/2020 14:43 EDT Performed On: 09/21/2020 14:43 EDT by FAISAL PONCE Rn-Lighting TechnicianMachining And Assembly Supervisor Progress Note Discharge Arrangements : Patient Post-Acute Information Patient Name: ABBEY MEADE Gender: Female : [birth year] Age: 80 Years No Post-Acute Placement(s) Listed No Post-Acute Service(s) Listed No [place] Referral(s) Listed Discharge Options Discussed with Patient : Discharge transportation, DME Barriers to Discharge Identified : Clinical Condition of Patient, Follow-Up appointments needed Barriers to Discharge Unresolved : Clinical Condition of Patient FAISAL PONCE, Kend[place]-Lighting Technician - 09/21/2020 14:43 EDT Narrative Progress Note Narrative Progress Note : DCP - likely home w/family without needs; f/u with specialists/PCP as recommended. FAISAL PONCE, Rn-Lighting Technician - 09/21/2020 14:43 EDT Electronically signed by Rory Rosado Conversion High Density Talc Coater Operator Cerner at 07/05/2022 11:36 PM CDT documented in this encounter Plan of Treatment Not on file documented as of this encounter Visit Diagnoses Not on filedocumented in this encounter
--- OUTSIDE RECORDS SUMMARY | 2025-02-20 18:47 | XMS_ITS | Encounter Summary ---
Author Organization [employer] ([place], [place], [place], [place], [place]) Address [address] [place] [address] Care Team Providers Care Home Health Provider Name Role Phone Unavailable Primary Care Provider Unavailabl e Encounter Details Date Type Department Care Team (Late st Contact Info) Description 09/20/2020 Transcribed Document [facility] [place] [address] [place] [address] ProviderShannan MD [address] [place] [address] Social History Tobacco Use Types Packs/Day Years Used Date Smoking Tobacco: Never Assessed Comments Unknown Sex and Gender Information Value Date Recorded Sex Assigned at Not on file Legal Sex Female 7:22 PM CDT Gender Identity Not on file Sexual Orientation Not on file documented as of this encounter Miscellaneous Notes * Cerner Conversion Note - Historical ProviderMD - 09/20/2020 6:05 PM CDT Education-Wound Care Entered On: 09/20/2020 18:40 EDT Performed On: 09/20/2020 18:05 EDT by Ruma Fish Rn Teaching/Learning Assessment Barriers To Learning : None evident Learning Style Preferences Patient : Verbal explanation Learning Style Preferences Family : Verbal explanation Ruma Fish Rn - 09/20/2020 18:40 EDT Education Topics, Wound Care Wound Education Grid Etiology/Risk Factors : Verbalizes understanding Pain Management : Verbalizes understanding Plan of Care : Verbalizes understanding Skin Assessment : Verbalizes understanding Ruma Fish Rn - 09/20/2020 18:40 EDT documented in this encounter Plan of Treatment Not on file documented as of this encounter Visit Diagnoses Not on filedocumented in this encounter
--- OUTSIDE RECORDS SUMMARY | 2025-02-20 18:47 | XMS_ITS | Encounter Summary ---
Author Organization [employer] ([place], [place], [place], [place], [place]) Address [address] [place] [address] Care Team Providers Care Steam Shovelman Name Role Phone Unavailable Primary Care Provider Unavailabl e Encounter Details Date Type Department Care Team (Late st Contact Info) Description 09/20/2020 Transcribed Document [facility] Radiology [address] [place] [address] [place] [address] [place] [address] [address] [place] [id number] Social History Tobacco Use Types Packs/Day Years Used Date Smoking Tobacco: Never Assessed Comments Unknown Sex and Gender Information Value Date Recorded Sex Assigned at Not on file Legal Sex Female 7:22 PM CDT Gender Identity Not on file Sexual Orientation Not on file documented as of this encounter Miscellaneous Notes * Cerner Conversion Note - Messi Mcgarry MD - 09/20/2020 7:00 PM EDT Patient: ABBEY MEADE Age: 80 years Sex: Female : 1940 Associated Diagnoses: None Author: MESSI MCGARRY MD-INT Basic Information Admit information: Tx From: Psychiatric ER . Source of history: Self, Family member. Present at bedside: Family member. PCP: Dr. Zully OWEN: 09/20/2020 CODE STATUS: Full code Referral source: Emergency department. Chief Complaint 1. Severe weakness 2. Ongoing melena 3. Exertional dyspnea History of Present Illness This is 80-year-old female presented to the [facility] ER with above-mentioned complaints. According to [...] dizzy and weak. She went to the [facility] ER where work-up revealed hemoglobin of [...] constipation. Patient did receive her Covid vaccine PAST MEDICAL HISTORY: Chronic anemia Essential hypertension Chronic back pain Hiatal hernia GERD History of cholecystectomy FAMILY HISTORY: Negative for heart disease, diabetes, cancers in both parents and siblings. Positive for hypertension SOCIAL HISTORY: Patient lives at home and accompanied with son. Denies smoking alcohol or recreational drug use. Histories Family History: No family history items have been selected or recorded. Procedure history: No active procedure history items have been selected or recorded. Social History Social & Psychosocial Habits No Data Available . No qualifying data available Medications (5) Active Scheduled: (0) Continuous: (2) NaCl 0.9% 1,000 mL 1,000 mL, IntraVENous, 75 mL/Hr pantoprazole 80 mg + NaCl 0.9% 250 mL 250 mL, IntraVENous, 25 mL/Hr PRN: (3) acetaminophen 325 mg tab 650 mg 2 Tab, Oral, Q4H albuterol-ipratropium inh 3 mL 3 mL, Nebulized Inhalation, RT_Q6H ondansetron 4 mg/2 mL inj 4 mg 2 mL, IV Push, Q4H No qualifying data available Review of Systems Constitutional: Weakness, Fatigue. Eye: Negative. Ear/Nose/Mouth/Throat: Negative. Respiratory: Shortness of breath. Cardiovascular: Palpitations. Gastrointestinal: Constipation, Melena recently. Genitourinary: Negative. Hematology/Lymphatics: Negative. Endocrine: Negative. Immunologic: Negative. Musculoskeletal: Back pain. Neurologic: Negative. Psychiatric: Negative. All other systems are negative Health Status Problem list: No qualifying data available Physical Examination VS/Measurements Vitals Signs (last 24 hrs) Last Charted Minimum Maximum Temp 98.3 (SEP 20:) 98.3 (SEP 20:) 98.3 (SEP 20:) Mon HR 123 (SEP 20:30) 123 (SEP 20:30) 123 (SEP 20:30) Resp Rate 15 (SEP 20:30) 15 (SEP 20:30) 15 (SEP 20:30) SBP H 169 (SEP 20:) H 169 (SEP 20:30) H 169 (SEP 20:30) DBP 70 (SEP 20:) 70 (SEP 20:30) 70 (SEP 20:30) MAP 100 (SEP 20:) 100 (SEP 20:30) 100 (SEP 20:) SpO2 100 (SEP 20:30) 100 (SEP 20:30) 100 (SEP 20:) General: Alert and oriented, Mild distress, Generalized pallor and pale conjunctiva noted. Eye: Pupils are equal, round and reactive to light, Extraocular movements are intact. HENT: Normocephalic, Oral mucosa is moist. Neck: Supple, Non-tender, No carotid bruit. Respiratory: Lungs are clear to auscultation, Respirations are non-labored, Breath sounds are equal. Cardiovascular: Regular rhythm, S1, S2, Tachycardia. Gastrointestinal: Soft, Non-tender, Non-distended, Normal bowel sounds. Musculoskeletal: Normal range of motion, No tenderness. Integumentary: Warm, Intact, Moist. Neurologic: Alert, Oriented, Normal motor function, No focal deficits. Psychiatric: Cooperative. Review / Management Results review: Labs (Last four charted values) WBC 8.7 (SEP 20) HB L 6.7 (SEP 20) HCT L 21.8 (SEP 20) Plt 194 (SEP 20) . Impression and Plan DIAGNOSIS: Acute GI bleed with melanotic stools Acute blood loss anemia, due to above Tachycardia, due to above Essential hypertension Chronic back pain History of hiatal hernia PLAN: Patient is quite sick and it seems she is actively bleeding. Patient will be monitored closely in ICU. We will transfuse her a stat 2 units PRBC. Keep her strict n.p.o. Start Protonix drip. Requesting GI input. Br Rx, O2, Pulmonary Toilet, as needed Home Meds will be Reconciled, when finalized. D/W Pt and her son at bedside and they both understand the plan of care D/W nursing staff in ICU documented in this encounter Plan of Treatment Not on file documented as of this encounter Visit Diagnoses Not on filedocumented in this encounter
--- OUTSIDE RECORDS SUMMARY | 2025-02-20 18:48 | XMS_ITS | Encounter Summary ---
Author Organization [facility] Address [address] [place] [address] Care Team Providers Care Tape Maker Name Role Phone Hawk Davis MD Primary Care Provider [phone] Encounter Details Date Type Department Care Team (Late st Contact Info) Description 05/10/2021 Orders Only External Location [address] [place] [address] Lani Meyer PA [address] [facility] [address] [place] [address] Social History Tobacco Use Types Packs/Day Years Used Date Smoking Tobacco: Never Assessed Comments Unknown Sex and Gender Information Value Date Recorded Sex Assigned at Not on file Legal Sex Female 8:48 PM EDT Gender Identity Not on file Sexual Orientation Not on file documented as of this encounter Plan of Treatment Not on file documented as of this encounter Procedures Procedure Name Priority Date/Time Associated Diagnosis Comments FL OUTSIDE IMAGES 05/10/2021 1:40 PM EST documented in this encounter Results * FL OUTSIDE IMAGES (05/10/2021 1:40 PM EST) Anatomical Region Laterality Modality Radiographic Guera ging 05/10/2021 1:40 PM EST us Lani ANDERSON IMG FLUOROSCOPY PROCEDURES Fin al Result documented in this encounter Visit Diagnoses Not on filedocumented in this encounter Care Teams Tape Maker Relationship Specialty Start Date End Date Hawk Davis MD [address] [place] [address] [place] [address] PCP - General 07/30/20 documented as of this encounter
--- OUTSIDE RECORDS SUMMARY | 2025-02-20 18:48 | XMS_ITS | Referral Summary ---
Author Organization [employer] ([place], [place], [place], [place], [place]) Address [address] [place] [address] Care Team Providers Care Supervisor Pumping Station Name Role Phone Unavailable Primary Care Provider Unavailabl e Social History Tobacco Use Types Packs/Day Years Used Date Smoking Tobacco: Never Assessed Comments Unknown Sex and Gender Information Value Date Recorded Sex Assigned at Not on file Legal Sex Female 7:22 PM CDT Gender Identity Not on file Sexual Orientation Not on file Plan of Treatment Not on file
--- OUTSIDE RECORDS SUMMARY | 2025-02-20 18:48 | XMS_ITS | Clinical Summary ---
Author Organization [employer] ([place], [place], [place], [place], [place]) Address [address] [place] [address] Care Team Providers Care Aircraft Captain Name Role Phone Unavailable Primary Care Provider [...]
--- NOTE | 2025-02-20 18:59 | CT_ITS ---
PROCEDURE INFORMATION: Exam: CT Head Without Contrast Exam date and time: 02/20/2025 7:29 PM Age: 84 years old Clinical indication: Injury or trauma; Fall; Blunt trauma (contusions or hematomas) TECHNIQUE: Imaging protocol: Computed tomography of the head without contrast. Radiation optimization: All CT scans at this facility use at least one of these dose optimization techniques: automated exposure control; mA and/or kV adjustment per patient size (includes targeted exams where dose is matched to clinical indication); or iterative reconstruction. COMPARISON: CT ANGIO HEAD 01/23/2025 10:00 PM FINDINGS: Brain: Encephalomalacia identified within the cortex and subcortical white matter the right anterior parietal temporal region. Consistent with old infarct. Unchanged. Moderate atrophy there appears to be selective to the frontal lobes. Cerebral ventricles: No ventriculomegaly. Paranasal sinuses: Visualized sinuses are unremarkable. No fluid levels. Mastoid air cells: Visualized mastoid air cells are well aerated. Bones: Unremarkable. No acute fracture. Soft tissues: Unremarkable. Vasculature: Dense bilateral carotid siphon calcifications noted. IMPRESSION: 1. Encephalomalacia identified within the cortex and subcortical white matter the right anterior parietal temporal region. Consistent with old infarct. Unchanged. 2. Dense bilateral carotid siphon calcifications noted. Moderate atrophy there appears to be selective to the frontal lobes.
--- NOTE | 2025-02-20 18:59 | XR_ITS ---
PROCEDURE INFORMATION: Exam: XR Right Forearm Exam date and time: 02/20/2025 7:37 PM Age: 84 years old Clinical indication: Pain; Other: Bruising; Lower or forearm; Right; Additional info: Brusing over distal forearm/wrist TECHNIQUE: Imaging protocol: Radiologic exam of the right forearm. Views: 2 views. COMPARISON: CR XR WRIST RT MIN 3V 07/08/2024 10:03 AM FINDINGS: Bones/joints: Lateral plate screw fixation distal radius with no hardware complication. Chronic avulsion fracture of the ulnar styloid process. No acute fracture or dislocation Soft tissues: Normal. IMPRESSION: No acute findings.
--- NOTE | 2025-02-20 18:59 | CT_ITS ---
PROCEDURE INFORMATION: Exam: CTA Chest With Contrast Exam date and time: 02/20/2025 7:31 PM Age: 84 years old Clinical indication: Pain; Chest pressure and other: Cp, lumps on chest; Additional info: Chest pain TECHNIQUE: Imaging protocol: Computed tomographic angiography of the chest with contrast. Exam focused on the arteries. 3D rendering (Not supervised by radiologist): MIP and/or 3D reconstructed images were created by the technologist. Radiation optimization: All CT scans at this facility use at least one of these dose optimization techniques: automated exposure control; mA and/or kV adjustment per patient size (includes targeted exams where dose is matched to clinical indication); or iterative reconstruction. Contrast material: ISO 370; Contrast volume: 70 ml; Contrast route: INTRAVENOUS (IV); COMPARISON: CT ANGIO CHEST PE PROTOCOL 01/27/2023 6:58 PM FINDINGS: Pulmonary arteries: Normal. No pulmonary emboli. Aorta: Unremarkable. No aortic aneurysm. No aortic dissection. Lungs: Bibasilar atelectasis. No pneumonia Pleural spaces: Small bilateral pleural effusions. Heart: Cardiomegaly Lymph nodes: Unremarkable. No enlarged lymph nodes. Upper abdomen reveals simple hepatic cysts Bones/joints: Unremarkable. No acute fracture. Soft tissues: Unremarkable. IMPRESSION: No acute findings. Small bilateral pleural effusions No pulmonary embolism
--- NOTE | 2025-02-20 18:59 | XR_ITS ---
PROCEDURE INFORMATION: Exam: XR Right Wrist Exam date and time: 02/20/2025 7:37 PM Age: 84 years old Clinical indication: Pain; Other: Bruising; Wrist; Right; Additional info: Brusing over distal forearm/wrist TECHNIQUE: Imaging protocol: Radiologic exam of the right wrist. Views: 3 or more views. COMPARISON: CR XR WRIST RT MIN 3V 07/08/2024 10:03 AM FINDINGS: Bones/joints: Lateral plate screw fixation distal radius with no hardware complication. Chronic avulsion fracture of the ulnar styloid process. No acute fracture or dislocation . Degenerative changes involving the 1st carpal metacarpal joint with joint space narrowing and osteophyte formation. Soft tissues: Normal. IMPRESSION: No acute fracture or dislocation. No hardware complication
[2025-02-20 19:11] LABS: Alanine Aminotransferase 24 U/L (12-78); Albumin Level 4.7 g/dl (3.5-5.0); Albumin/Globulin Ratio 1.5 (1.1-1.8); Alkaline Phosphatase 92 U/L (38-126); Anion Gap 12.0 mEq/L (5-15); Aspartate Amino Transferase 29 U/L (14-36); Bilirubin,Total 0.7 mg/dl (0.2-1.3); Blood Urea Nitrogen 20 mg/dl (7-17); Calcium 9.6 mg/dl (8.4-10.2); Carbon Dioxide 24 mmol/L (22.0-30.0); Chloride 104 mmol/L (98-107); Creatinine Clearance Estimated 53 mL/min (50-200); Creatinine,Serum 0.70 mg/dl (0.52-1.04); Estimated Glomerular Filt Rate 80 ml/min (>60); GFR (African American) 97 ML/MIN (>60); Globulin 3.2 g/dL (1.3-3.2); Glucose 135 mg/dl (74-100); Lipase 18 U/L (23-300); Potassium 4.0 mmoL/L (3.5-5.1); Sodium 136 mmol/L (136-145); Total Protein,Serum 7.9 g/dl (6.3-8.2)
--- NOTE | 2025-02-20 19:14 | ECG_ITS ---
APPROVED REPORT Exam: Resting ECG HR:81 bpm ECG Measurements Heart Rate 81 AXES GA 212 P 70 QRSd 91 QRS 27 QT 387 T 63 QTc 425 Conclusion Normal sinus rhythm Normal axis First-degree AV block No STEMI Electronically signed by : Pete Wang, 02/20/2025 23:34:21
[2025-02-20 19:15] LABS: Hematocrit 36.5 % (37.0-47.0); Hemoglobin 12.6 g/dL (12.2-16.2); Immature Granulocytes % 0.1 %; Mean Corpuscular HGB Conc 34.5 g/dL (31.8-35.4); Mean Corpuscular Hemoglobin 34.1 pg (27.0-31.2); Mean Corpuscular Volume 98.6 fl (81-99); Nucleated Red Blood Cells % 0 %; Platelet Count 236 K/mm3 (142-424); Red Blood Count 3.70 M/mm3 (4.20-5.40); Red Cell Distribution Width-SD 45.0 fL; White Blood Count 7.5 K/mm3 (4.8-10.8)
[2025-02-20 19:25] LABS: Troponin I < 0.01 ng/ml (0.00-0.034)
[2025-02-20 19:26] LABS: Microscopic, Urine URINE MICROSCOPIC (MICROSCOPIC)
[2025-02-20 19:31] LABS: Bilirubin,Urine Negative (Negative); Color,Urine YELLOW (Yellow); Glucose,Urine (UA) Negative (Negative); Ketones,Urine Negative (Negative); Leukocyte Esterase,Urine 2+ (Negative); PH,Urine 7.0 (5.0-8.5); Protein,Urine Negative (Negative); Specific Gravity, Urine 1.020 (1.005-1.030); Urobilinogen,Urine 0.2 EU/dl (0.2)
[2025-02-20] MEDS: SODIUM CHLORIDE 0.9% 10ML SYR (RAD ONLY) 10 ML IV (19:34)
[2025-02-20] MEDS: 0.9 % SODIUM CHLORIDE 50 ML VIAL IV (19:34)
[2025-02-20] MEDS: IOPAMIDOL-370 (76%);100ML BOTTLE 70 ML IV (19:34)
[2025-02-20 19:47] LABS: Amorphous Sediment,Urine 1+ /lpf; Bacteria,Urine 2+ /lpf; Mucus,Urine 1+ /lpf; WBC,Urine 20-50 #/hpf (0-3)
--- NOTE | 2025-02-20 20:03 | HMH.EDGENADL ---
Discharge Plan Disposition Patient Disposition: Admitted Condition: Good Clinical Impressions Clinical Impression: UTI (urinary tract infection), Acute encephalopathy Discharge ED Provider: Pete Wang Adult HPI General Chief complaint: PAIN Stated complaint: fell R wrist pain, lumps on chest Time Seen by Provider: 02/20/25 18:51 Mode of Arrival: Ambulatory Source of Information: Patient Description of Symptoms (Recalled from ER Triage Doc. by RN): Pt presents with bilateral wrist pain from an unknown source as well as lumps on her chest that are causing pain. Pt was supposed to have a CT scan next week History of Present Illness HPI narrative: This is an 84-year-old female patient, with past medical history of migraines, hypertension, hyperlipidemia, and prior stroke with chronic left facial drooping, who is presenting to the emergency department today for evaluation of chest pain. The patient states that over the last week she has developed pain in the left side of her chest that is associated with subcutaneous nodules and bruising of the chest. She states this evening her chest pain significantly worsened however, she is not the best historian and she poorly describes whether this is worsening chest wall pain or pain deep within her chest. Regardless, her pain does not seem exertional, and it is not associated with shortness of breath. She has had no lower extremity erythema or edema. In addition to this complaint she tells me that yesterday she had a fall and as part of this fall she injured her right upper extremity. She notes that there is bruising present over her wrist where she had an open reduction internal fixation of the right radius earlier this year. Related Data Home Medications ?Medication ?Instructions ?Recorded ?Confirmed escitalopram oxalate 20 mg tablet 20 mg PO DAILY Mood 07/05/18 07/08/24 (Lexapro) amlodipine 5 mg tablet (Norvasc) 5 mg PO DAILY High blood pressure 02/02/20 07/08/24 carvedilol 25 mg tablet 25 mg PO BID High Blood Pressure 01/27/23 07/08/24 alprazolam 1 mg tablet (Xanax) 2 mg PO HS Insomnia 01/28/23 07/08/24 atorvastatin 40 mg tablet (Lipitor) 40 mg PO DAILY Mood 01/28/23 07/08/24 buspirone 10 mg tablet 10 mg PO BID Anxiety 01/28/23 07/08/24 clopidogrel 75 mg tablet (Plavix) 75 mg PO DAILY Platelet Inhibitor 01/28/23 07/08/24 famotidine 20 mg tablet (Pepcid) 20 mg PO HS Acid Reflux 01/28/23 07/08/24 oxycodone-acetaminophen 7.5 mg-325 1 tab PO Q6H Pain 01/28/23 07/08/24 mg tablet (Percocet) quetiapine 400 mg tablet (Seroquel) 400 mg PO HS Insomnia 01/28/23 07/08/24 Previous Rx's ?Medication ?Instructions ?Recorded diclofenac sodium 1 % topical gel 2 g topical QID PRN pain #100 grams 05/08/24 Allergies Allergy/AdvReac Type Severity Reaction Status Date / Time haloperidol (From HALDOL) Allergy Unknown Other Verified 07/08/24 10:24 [facility] Disclaimer: The information contained in this section may have been updated after the patient was seen, as this information can be updated by other users. Medical History Left elbow fracture Fracture of right ankle Deviated septum Hiatal hernia Thyroid disease Depression Anxiety History of anemia Migraine History of stroke Hyperlipidemia Hypertension Surgical History History of hysterectomy History of cholecystectomy Family History Other No significant family history Social History Smoking Status: Never smoker alcohol intake: never substance use type: denies use current occupational status: retired Travel in the last 8 weeks?: None household members: spouse housing: house current occupational exposures/hazards: No caffeine: Yes Have you lived/traveled outside [place] in past 30 days?: No Contact w/someone who lives/traveled outside US past 30 days?: No Exposure to someone with infectious disease in past 14 days?: No Do you have a fever (greater than 100.4 F or 38 C)?: No Have you tested positive for COVID-19?: No Exposed to someone with COVID-19 in past 14 days?: No Do you have a sore throat?: No Do you have a cough?: No Do you have any weakness?: No Do you have any diarrhea?: No Are you experiencing any unusual bleeding?: No Do you have any muscle aches/pain?: No Do you have any abdominal pain?: No Are you experiencing loss of taste or smell?: No Other Medical History Have you received the Flu Vaccine for this season: No Have you received the Pneumonia Vaccine: Yes ROS Obtained: Yes Systems reviewed as appropriate & no additional complaints except as documented Physical Exam General General appearance: other (See MDM) Respiratory Respiratory exam: Present other (See MDM) Cardiovascular Cardiovascular exam: Present other (See MDM) Neurological Exam Neurological exam: Present other (See MDM) Medical Decision Making Medical Records Medical records reviewed: Yes I reviewed the patient's medical records. Screening: Per USPSTF and CDC recommendations, given the prevalence of disease in our region, it is our hospital?s policy to screen for HIV and viral Hepatitis for all patients aged 18 and over and those with ongoing risk factors. Adiel Inquiry Pt receiving controlled substance: No Adiel was queried for this patient: No Vital Signs: 02/20/25 18:29 02/20/25 18:35 02/20/25 20:01 Temperature 98.0 F 98.8 F Temperature Source Oral Pulse Rate 88 86 Pulse Rate [Right] 97 H Respiratory Rate 18 18 Blood Pressure 138/78 138/96 H Blood Pressure [Right Arm] 122/89 Blood Pressure Mean [Right Arm] 100 Blood Pressure Source [Right Arm] Automatic Cuff Blood Pressure Position [Right Arm] Sitting 02 Sat by Pulse Oximetry 97 98 98 Oxygen Delivery Method Room Air Room Air 02/20/25 21:43 Temperature 98.4 F Temperature Source Pulse Rate 74 Pulse Rate [Right] Respiratory Rate 18 Blood Pressure 134/78 Blood Pressure [Right Arm] Blood Pressure Mean [Right Arm] Blood Pressure Source [Right Arm] Blood Pressure Position [Right Arm] 02 Sat by Pulse Oximetry Oxygen Delivery Method Room Air Lab Data Lab Results 02/20/25 18:48: WBC 7.5, RBC 3.70 L, Hgb 12.6, Hct 36.5 L, MCV 98.6, MCH 34.1 H, MCHC 34.5, RDW 12.3, Plt Count 236, MPV 10.3, Neut % (Auto) 61.5, Lymph % (Auto) 23.2, Ritchie % (Auto) 11.9 H, Eos % (Auto) 2.9, Baso % (Auto) 0.4, Neut # (Auto) 4.6, Lymph # (Auto) 1.7, Ritchie # (Auto) 0.9, Eos # (Auto) 0.2, Baso # (Auto) 0.0, Sodium 136, Potassium 4.0, Chloride 104, Carbon Dioxide 24, Anion Gap 12.0, BUN 20 H, Creatinine 0.70, Estimated Creat Clear 53, Estimated GFR 80, Est GFR ( Amer) 97, Glucose 135 H, Calcium 9.6, Total Bilirubin 0.7, AST 29, ALT 24, Alkaline Phosphatase 92, Troponin I < 0.01, Total Protein 7.9, Albumin 4.7, Globulin 3.2, Albumin/Globulin Ratio 1.5, Lipase 18 L 02/20/25 19:24: Urine Color Yellow, Urine Appearance Clear, Urine pH 7.0, Ur Specific [place] 1.020, Urine Protein Negative, Urine Glucose (UA) Negative, Urine Ketones Negative, Urine Blood Negative, Urine Nitrate Negative, Urine Bilirubin Negative, Urine Urobilinogen 0.2, Ur Leukocyte Esterase 2+ A, Urine RBC 5-10, Urine WBC 20-50, Ur Squamous Epith Cells 10-20, Amorphous Sediment 1+, Urine Bacteria 2+, Urine Mucus 1+ 02/20/25 18:48 02/20/25 18:48 Orders (Tests/Meds): ED MEDICATIONS Generic Name Dose Route Start Last Admin Trade Name Freq PRN Reason Stop Dose Admin Acetaminophen 650 mg 02/20/25 21:21 Acetaminophen 325mg Tab PO 03/22/25 21:20 Q4HP PRN Fever or Mild Pain (1-3) Enoxaparin Sodium 40 mg 02/21/25 09:00 Enoxaparin 40mg/0.4ml Syringe SUBCUT 03/23/25 08:59 DAILY FELIPE Ceftriaxone Sodium 1 gm/ 50 mls @ 100 mls/hr 02/21/25 09:00 Sodium Chloride IV 03/03/25 08:59 Q24H FELIPE Olanzapine 10 mg 02/20/25 22:00 Olanzapine 5 Mg Odt Tablet SL 02/20/25 22:01 HS ONE Ondansetron HCl 4 mg 02/20/25 21:21 Ondansetron 4mg/2ml Vial IV 03/22/25 21:20 Q8HP PRN Nausea Sodium Chloride 10 ml 02/20/25 21:21 Sodium Chloride 0.9% 10ml Flush Syringe IV 03/22/25 21:20 NEEDED PRN Maintain IV Site Discontinued Medications Generic Name Dose Route Start Last Admin Trade Name Fannie PRN Reason Stop Dose Admin Ceftriaxone Sodium 2 gm/ 100 mls @ 200 mls/hr 02/20/25 20:33 02/20/25 21:10 Sodium Chloride IV 02/20/25 21:02 Infused ONCE ONE Infusion Lactated Ringer's 500 mls @ 999 mls/hr 02/20/25 20:53 02/20/25 21:12 Lactated Ringer's 1000 Ml Bag IV 02/20/25 21:23 Not Given .Q31M ONE Lactated Ringer's 1,000 mls @ 999 mls/hr 02/20/25 21:10 02/20/25 21:12 Lactated Ringer's 1000 Ml Bag IV 02/20/25 21:53 999 mls/hr .Q1H1M ONE Administration Iopamidol 70 ml 02/20/25 19:33 02/20/25 19:34 Iopamidol-370 (76%);100ml Bottle IV 02/20/25 19:34 70 ml ONCE ONE Administration Sodium Chloride 50 ml 02/20/25 19:33 02/20/25 19:34 0.9 % Sodium Chloride 50 Ml Vial IV 02/20/25 19:34 50 ml ONCE ONE Administration Sodium Chloride 10 ml 02/20/25 19:33 02/20/25 19:34 Sodium Chloride 0.9% 10ml Syr (Rad Only) IV 03/22/25 19:32 10 ml NEEDED PRN Administration Maintain IV Site ORDERS Category Date Time Status CT angio chest PE protocol Stat Cat Scan 02/20/25 18:[address] head/brain wo con Stat Cat Scan 02/20/25 18:59 Completed Forearm XR right 2 views [XR forearm RT 2V] Stat Exams 02/20/25 18:59 Completed Wrist XR right minimum 3 views [XR wrist RT min 3V] Exams 02/20/25 18:59 Completed Stat CBC w/Auto Diff [Complete Blood Count Auto Diff] Stat Lab 02/20/25 18:48 Completed CMP [Comprehensive Metabolic Panel] Stat Lab 02/20/25 18:48 Completed Lipase Stat Lab 02/20/25 18:48 Completed Troponin I Q3H Lab 02/21/25 01:00 Ordered Troponin I Stat Lab 02/20/25 18:48 Completed Urinalysis and Microscopic Stat Lab 02/20/25 19:24 Completed Urine Culture Stat Micro 02/20/25 19:24 Received Medical Decision Narrative: In summary this is an 84-year-old female patient who is presenting for multiple complaints including chest pain with associated subcutaneous nodules as well as a fall yesterday resulting in right wrist pain. Her comorbidities include hypertension, hyperlipidemia, and history of stroke. On initial evaluation of the patient they were resting comfortably in no acute distress and nontoxic in appearance. They are hemodynamically stable, saturating well room air, and are neurologically intact. On physical examination the patient is appropriately alert and oriented x 4, but she does not have linear train of thought and tells me that she broke her wrist 911 years ago while falling out of a tree. She does have chronic left-sided facial drooping from her prior stroke 4 years ago. Aside from this she has 5 out of 5 strength in her bilateral upper and lower extremities. No pronator drift. Regarding her right upper extremity she has ecchymosis over the volar aspect of the distal right forearm as well as a well-healing scar from her prior open reduction internal fixation procedure. Otherwise she has no deformities of her extremities and her pelvis is stable. Heart and lungs are clear to auscultation bilaterally Differential diagnosis includes ACS/HI, pulmonary embolism, breast cancer, rib fractures, wrist fracture, radial fracture, among others. Given the fact that the patient is of advanced age and had a fall yesterday we will scan her head to ensure that she does not have any evidence of intracranial hemorrhage. Additionally, we will obtain a urinalysis to ensure she does not have urinary tract infection. Workup was initiated with hematologic labs, x-ray of the right upper extremity, CT PE study, and urinalysis. EKG was personally interpreted by me and demonstrates normal sinus rhythm with sinus arrhythmia at a rate of 81 bpm, normal axis, no [place] prolongation, narrow QRS, no QTc prolongation. No ST ovation or depression. No overt signs of ischemia or arrhythmia Labs personally interpreted by me demonstrate no leukocytosis, no anemia, no significant electrolyte derangement or acute kidney injury. Troponin is less than 0.01. Lipase is normal. Urinalysis shows 20-50 white blood cells, 2+ bacteria, and leukocyte esterase. This is consistent with urinary tract infection so I have treated her with 2 g of Rocephin IV. X-ray of the right forearm and right wrist were personally interpreted by me and demonstrate no acute fracture or dislocation. Official radiology read is in agreement and states there is no acute abnormality. Head CT was personally interpreted by me and demonstrates no large intracranial hemorrhages. Official radiology read is in agreement and notes some chronic changes with no acute abnormality. Additionally, CT PE study was personally turbid by me and demonstrates no large saddle pulmonary embolism. Official radiology read is in agreement and notes that there is small bilateral pleural effusions with no other acute findings. They specifically do not comment on any abnormality within the chest wall or the left breast, that would explain the nodules on her left breast While the patient was in the emergency department she demonstrated worsening signs of encephalopathy. She was telling me that there was a alliance party currently going on at her house that included several of her friends and children and these people waiting on her and she needed to go home. She began wandering into the radiology suite saying that she was exiting the hospital. I called patient's daughter and spoke with her directly on the phone. She tells me that she is currently in [place] and that there is nobody at the patient's house. I had a great conversation with both the patient and her daughter on the telephone. After this conversation the patient's daughter states that the patient is not at her baseline mental status. Given the fact that the patient drove herself to the hospital and is experiencing cephalopathy I certainly do not feel that she is safe to drive herself home as this would put herself and others at risk. Therefore I had an interactive discussion with the internal medicine service who agreed to evaluate the patient in the emergency department. After our discussion of their evaluation they agreed to admit the patient to their service for further workup and management of acute encephalopathy in the setting of urinary tract infection Critical Care Critical Care Time Critical Care Time: No
[2025-02-20] MEDS: LACTATED RINGERS 1000ML 1,000 ML 999 ML IV (21:12)
--- NOTE | 2025-02-20 21:28 | PC.NURSE ---
report called to abbie AVILES
--- NOTE | 2025-02-20 21:54 | P.HP_ITS ---
<Statement entered by Anup Johnson MD - 02/24/25 15:56> Agree with plan of care as outlined by the CUSTOMER BUSINESS MANAGER. History of Present Illness *Admission Date: 02/20/25 *Reason for visit:: Chest pain *History of present illness: This is an 84-year-old female who has a past medical history significant for left elbow fracture, fracture of the right ankle, deviated septum, hiatal hernia, thyroid disease, depression, anxiety, anemia, migraine headache, CVA, hyperlipidemia, and hypertension who presents with a chief complaint of left-sided chest pain due to some nodules on the anterior chest. Due to the patient's symptoms, she presented to the emergency room for evaluation. While in the emergency room, CT scan of the wrist was negative for any acute fracture or dislocation. CT scan of the head revealed encephalomalacia within the cortex and subcortical white matter of the right anterior parietal temporal region consistent with old infarct. Patient was exhibiting bizarre behavior in the emergency room. Urinalysis was consistent with a urinary tract infection. As a result, hospital medicine was consulted for further management. During my evaluation of patient, patient states she has been having these nodules on her anterior chest. She did see her primary care physician Dr. Osorio who recommended her have a CT scan of the chest. He did not think she needed a mammogram. Patient is currently denied any chest pain, lightheadedness, dizziness, fever, chills, rigors, burning with urination, frequency urination, shortness of breath, dyspnea, or diarrhea. Additional pertinent vitals obtained include a red blood cell count of 3.70, hematocrit 36.5, BUN 20, blood glucose 135, and CT scan of the chest revealed no acute findings but a small bilateral pleural effusion. ER provider states patient was alert and oriented but having some bizarre behavior while in the emergency room. He suspects that she may be having some encephalopathy from urinary tract infection. Urinalysis revealed 2+ leukocyte esterase/1+ mucus/2+ bacteria PFSH PFSH Disclaimer: The information contained in this section may have been updated after the patient was seen, as this information can be updated by other users. Medical History Left elbow fracture Fracture of right ankle Deviated septum Hiatal hernia Thyroid disease Depression Anxiety History of anemia Migraine History of stroke Hyperlipidemia Hypertension Surgical History History of hysterectomy History of cholecystectomy Family History Other No significant family history Social History (Updated 02/20/25 @ 22:33 by Myriam Fisher RN) Smoking Status: Never smoker alcohol intake: never substance use type: denies use current occupational status: retired Travel in the last 8 weeks?: Inside the [place] household members: spouse housing: house lives independently: Yes marital status: number of children: 2 group home: No current occupational exposures/hazards: No caffeine: Yes Have you lived/traveled outside US in past 30 days?: No Contact w/someone who lives/traveled outside US past 30 days?: No Exposure to someone with infectious disease in past 14 days?: No Do you have a fever (greater than 100.4 F or 38 C)?: No Have you tested positive for COVID-19?: No Exposed to someone with COVID-19 in past 14 days?: No Do you have a sore throat?: No Do you have a cough?: No Do you have any weakness?: No Are you experiencing any nausea/vomitting?: No Do you have any diarrhea?: No Are you experiencing any unusual bleeding?: No Do you have any muscle aches/pain?: No Do you have any abdominal pain?: No Are you experiencing loss of taste or smell?: No Other Medical History Have you received the Flu Vaccine for this season: No Have you received the Pneumonia Vaccine: Yes Review of Systems Review of Systems Review of systems:: pertinent systems reviewed and negative unless documented below Constitutional Constitutional: Reports system reviewed and no additional complaints, except as documented Eyes Eyes: Reports system reviewed and no additional complaints, except as documented ENT Ears, Nose, Mouth, and Throat: Reports system reviewed and no additional complaints, except as documented *Cardiovascular Cardiovascular: Reports chest pain *Respiratory Respiratory: Reports system reviewed and no additional complaints, except as documented *Gastrointestinal Gastrointestinal: Reports system reviewed and no additional complaints, except as documented *Genitourinary Genitourinary: Reports system reviewed and no additional complaints, except as documented *Musculoskeletal Musculoskeletal: Reports system reviewed and no additional complaints, except as documented Integumentary/Breasts Skin/Breast: Reports system reviewed and no additional complaints, except as documented *Neurologic Neurologic: Reports other Comments: Facial drooping from prior stroke Psychiatric Psychiatric: Reports system reviewed and no additional complaints, except as documented Hematologic/Lymphatic Hematologic/Lymphatic: Reports system reviewed and no additional complaints, except as documented Allergic/Immunologic Allergic/Immunologic: Reports system reviewed and no additional complaints, except as documented Meds Home Medications and Allergies Home Medications ?Medication ?Instructions ?Recorded ?Confirmed ?Type escitalopram oxalate 20 mg tablet 20 mg PO DAILY Mood 07/05/18 02/20/25 History (Lexapro) amlodipine 5 mg tablet (Norvasc) 5 mg PO DAILY High bl ood pressure 02/02/20 02/20/25 History carvedilol 25 mg tablet 25 mg PO BID High Blood Pres sure 01/27/23 02/20/25 History alprazolam 1 mg tablet (Xanax) 2 mg PO HS Insomnia 03/1007/08/24 History atorvastatin 40 mg tablet (Lipitor) 40 mg PO DAILY Moo d 01/28/23 02/20/25 History buspirone 10 mg tablet 10 mg PO BID Anxiety 3 02/20/25 History clopidogrel 75 mg tablet (Plavix) 75 mg PO DAILY Plate let Inhibitor 01/28/23 02/20/25 History famotidine 20 mg tablet (Pepcid) 20 mg PO HS Acid Refl ux 01/28/23 02/20/25 History oxycodone-acetaminophen 7.5 mg-325 1 tab PO Q8H Pain 1 03/30/22 02/20/25 History mg tablet (Percocet) quetiapine 400 mg tablet (Seroquel) 400 mg PO HS Insom hyacinth 01/28/23 02/20/25 History diclofenac sodium 1 % topical gel 2 g topical QID PRN pain #100 grams 05/08/24 07/08/24 Rx ergocalciferol (vitamin D2) 1,250 1,250 mcg PO Q7D 08/1002/20/25 History mcg (50,000 unit) capsule eszopiclone 3 mg tablet 3 mg PO HS 02/20/25 02/20/25 History New Prescriptions to Start Prescriptions: Allergies Allergy/AdvReac Type Severity Reaction Status Date / Time haloperidol (From HALDOL) Allergy Unknown Other Verified 07/08/24 10:24 Exam Data for Last 24 hours Vital signs and Labs for Last 24 Hours: Temp Pulse Resp BP Pulse Ox O2 Del Method 98.4 F 74 18 134/78 98 Room Air 02/20/25 21:43 02/20/25 21:43 02/20/25 21:43 02/20/25 21:43 02/20/25 20:01 02/20/25 21:43 Laboratory Results - last 24 hr 02/20/25 18:48: WBC 7.5, RBC 3.70 L, Hgb 12.6, Hct 36.5 L, MCV 98.6, MCH 34.1 H, MCHC 34.5, RDW 12.3, Plt Count 236, MPV 10.3, Neut % (Auto) 61.5, Lymph % (Auto) 23.2, [place] % (Auto) 11.9 H, Eos % (Auto) 2.9, Baso % (Auto) 0.4, Neut # (Auto) 4.6, Lymph # (Auto) 1.7, [place] # (Auto) 0.9, Eos # (Auto) 0.2, Baso # (Auto) 0.0, Sodium 136, Potassium 4.0, Chloride 104, Carbon Dioxide 24, Anion Gap 12.0, BUN 20 H, Creatinine 0.70, Estimated Creat Clear 53, Estimated GFR 80, Est GFR ( Amer) 97, Glucose 135 H, Calcium 9.6, Total Bilirubin 0.7, AST 29, ALT 24, Alkaline Phosphatase 92, Troponin I < 0.01, Total Protein 7.9, Albumin 4.7, Globulin 3.2, Albumin/Globulin Ratio 1.5, Lipase 18 L 02/20/25 19:24: Urine Color Yellow, Urine Appearance Clear, Urine pH 7.0, Ur Specific [place] 1.020, Urine Protein Negative, Urine Glucose (UA) Negative, Urine Ketones Negative, Urine Blood Negative, Urine Nitrate Negative, Urine Bilirubin Negative, Urine Urobilinogen 0.2, Ur Leukocyte Esterase 2+ A, Urine RBC 5-10, Urine WBC 20-50, Ur Squamous Epith Cells 10-20, Amorphous Sediment 1+, Urine Bacteria 2+, Urine Mucus 1+ I & O for Last 24 hours: Intake & Output 12/0202/18/25 02/19/25 02/20/25 23:59 23:59 23:59 23:59 Intake Total 100 / 100 Balance 100 / 100 Weight 77.111 kg Constitutional Constitutional: no acute distress and cooperative *Routine HEENT Exam Head: Present normocephalic and atraumatic Eye: Present EOMI, PERRL and normal accommodation ENT: Present mucous membranes moist *Routine Neck Exam Neck: Present supple, full ROM and trachea midline Routine Chest/Breast/Axilla Exam Chest wall: Present tenderness *Routine Respiratory Exam Respiratory: Present CTA bilaterally, normal respiratory effort, able to speak in complete sentences and symmetric chest movement *Routine Cardiovascular Exam Cardiovascular: Present RRR, Normal S1 and Normal S2 *Routine Abdominal Exam Abdominal: Present soft and normoactive bowel sounds *Routine Rectal Exam Rectal:: deferred *Routine Genitalia Exam Genitalia:: deferred *Routine Extremities Exam Extremities: Present full ROM, pulses intact and normal capillary refill Routine Back/Spine/Pelvis Exam Back/Spine: Present full ROM *Routine Skin Exam Skin: Present intact, warm and ecchymosis Comments: Anterior chest wall *Routine Neurological Exam Neurological: Present alert, oriented X3, CN II-XII intact and altered mental status Comments: Patient is making bizarre statements are not consistent with her story Routine Psychiatric Exam Psychiatric: Present anxious H&P: Result Impressions 84-year-old female presents with chest pain due to chest nodules was seen by her primary care physician who recommended CT scan of the chest was found to have a urinary tract infection and was having some bizarre behavior in the emergency room. Assessment and Plan *Assessment and plan (1) Altered mental status: Status: Acute Qualifiers: Altered mental status type: unspecified Qualified Code(s): R41.82 - Altered mental status, unspecified Category: Medical Code(s): R41.82 - Altered mental status, unspecified (2) UTI (urinary tract infection): Status: Acute Qualifiers: Hematuria presence: without hematuria Urinary tract infection type: site unspecified Qualified Code(s): N39.0 - Urinary tract infection, site not specified Category: Medical Code(s): N39.0 - Urinary tract infection, site not specified (3) Pleural effusion: Status: Acute Category: Medical Code(s): J90 - Pleural effusion, not elsewhere classified (4) Chest pain: Status: Acute Qualifiers: Chest pain type: unspecified Qualified Code(s): R07.9 - Chest pain, unspecified Category: Medical Code(s): R07.9 - Chest pain, unspecified Plan Assessment: Altered mental status: May be due to toxic metabolic encephalopathy - CT scan of the head is negative for any acute intracranial process - If patient continues to have bizarre behavior will consider patient for MRI of the brain without contrast - Patient may have a degree of psychosis this is not clear - Will continue to monitor patient to see if she improves with antibiotic therapy Urinary tract infection - Will give 1 g of Rocephin IV daily - Will monitor patient's urine culture and once sensitivities posted will tailor antibiotics to culture sensitivity Chest pain Bilateral pleural effusions - These are small in nature - Will monitor pulmonary status daily - Chest pain is atypical due to nodules on the anterior chest - She is currently ruling out for acute coronary syndrome - Will consider 2D echo technology assistant consultation Plan: Admit patient to the MedSurg unit on telemetry There were no acute findings on CT scan Electrolyte protocol Saline lock Obtain TSH Procalcitonin in a.m. Vitamin B12 level CBC/BMP daily 40 mg Lovenox subcu daily for DVT prophylax 4 mg Zofran IV push. It was benign Full code I will discussed this case with attending physician Dr. Johnson and I look forward to more input
--- NOTE | 2025-02-20 22:09 | PC.NURSE ---
Patient stated she had a significant amount of money in her purse. $1124 was counted and locked in pt med drawer with pt consent.
--- NOTE | 2025-02-20 22:14 | PC.NURSE ---
Attempted to get ahold of son at this time. Phone went straight to voicemail. Voicemail was left with call back number.
[2025-02-20] MEDS: QUETIAPINE 100MG TABLET 400 MG PO (23:44)
--- NOTE | 2025-02-20 23:58 | PC.NURSE ---
Pt A/Ox4 when arriving to unit. Pt able to provide history including home medications and dosages from memory. Staff noted pt to be talking and pointing in room. On pt assessment, pt states she is talking to her friend Rosalia and points to empty recliner in room. Pt alert to self and situation at this time. Pt was quickly reoriented and states she has periods of confusion. Pt sitting up in bed, snack provided. No needs voiced at this time.
[2025-02-21 00:05] VITALS: BP 140/74
[2025-02-21 00:14] VITALS: PULSE 84
[2025-02-21 00:30] VITALS: PULSE 85; RESP 11; O2SAT 96
[2025-02-21 04:00] VITALS: BP 126/70; PULSE 78; PULSE 85; RESP 20; O2SAT 97; BMI 24.2
[2025-02-21 07:58] LABS: Hematocrit 34.8 % (37.0-47.0); Immature Granulocytes % 0.2 %; Mean Corpuscular HGB Conc 32.5 g/dL (31.8-35.4); Mean Corpuscular Hemoglobin 32.6 pg (27.0-31.2); Mean Corpuscular Volume 100.3 fl (81-99); Nucleated Red Blood Cells % 0 %; Platelet Count 205 K/mm3 (142-424); Red Blood Count 3.47 M/mm3 (4.20-5.40); Red Cell Distribution Width-SD 46.6 fL; White Blood Count 6.0 K/mm3 (4.8-10.8)
[2025-02-21 08:00] VITALS: BP 132/73; PULSE 85; PULSE 96; RESP 18; TEMP 36.8; O2SAT 93; O2SAT 96
[2025-02-21 08:00] LABS: Hemoglobin 11.3 g/dL (12.2-16.2)
[2025-02-21 08:13] LABS: Anion Gap 9.7 mEq/L (5-15); Blood Urea Nitrogen 15 mg/dl (7-17); Calcium 8.8 mg/dl (8.4-10.2); Carbon Dioxide 24 mmol/L (22.0-30.0); Chloride 105 mmol/L (98-107); Creatinine Clearance Estimated 48 mL/min (50-200); Creatinine,Serum 0.60 mg/dl (0.52-1.04); Estimated Glomerular Filt Rate 96 ml/min (>60); GFR (African American) 116 ML/MIN (>60); Glucose 105 mg/dl (74-100); Potassium 3.7 mmoL/L (3.5-5.1); Sodium 135 mmol/L (136-145)
[2025-02-21 08:30] LABS: Procalcitonin 0.047 ng/mL (0.0-2.0)
[2025-02-21 08:43] LABS: Thyroid Stimulating Hormone 0.45 uIU/mL (0.465-4.68)
[2025-02-21 09:03] LABS: Vitamin B12 250 pg/mL (239-931)
[2025-02-21] MEDS: OXYCODONE 7.5MG W/APAP 325MG TABLET 1 EACH PO (09:14)
--- NOTE | 2025-02-21 09:45 | HMH.PHAINT1 ---
Pharmacy Intervention Comments: MEDICATION RECONCILIATION COMPLETED ON PATIENT USING EXTERNAL FILL HISTORY FROM PHARMACY. -DORIE MALONEY, DEZD
--- NOTE | 2025-02-21 11:31 | P.DS_ITS ---
General Admission date:: 02/20/25 HPI HPI HPI: This is an 84-year-old female who has a past medical history significant for left elbow fracture, fracture of the right ankle, deviated septum, hiatal hernia, thyroid disease, depression, anxiety, anemia, migraine headache, CVA, hyperlipidemia, and hypertension who presents with a chief complaint of left-sided chest pain due to some nodules on the anterior chest. Due to the patient's symptoms, she presented to the emergency room for evaluation. While in the emergency room, CT scan of the wrist was negative for any acute fracture or dislocation. CT scan of the head revealed encephalomalacia within the cortex and subcortical white matter of the right anterior parietal temporal region consistent with old infarct. Patient was exhibiting bizarre behavior in the emergency room. Urinalysis was consistent with a urinary tract infection. As a result, hospital medicine was consulted for further management. During my evaluation of patient, patient states she has been having these nodules on her anterior chest. She did see her primary care physician Dr. Osorio who recommended her have a CT scan of the chest. He did not think she needed a mammogram. Patient is currently denied any chest pain, lightheadedness, dizziness, fever, chills, rigors, burning with urination, frequency urination, shortness of breath, dyspnea, or diarrhea. Additional pertinent vitals obtained include a red blood cell count of 3.70, hematocrit 36.5, BUN 20, blood glucose 135, and CT scan of the chest revealed no acute findings but a small bilateral pleural effusion. ER provider states patient was alert and oriented but having some bizarre behavior while in the emergency room. He suspects that she may be having some encephalopathy from urinary tract infection. Urinalysis revealed 2+ leukocyte esterase/1+ mucus/2+ bacteria Hospital Course Hospital Course Hospital Course: Lucille Campuzano is a 84-year-old female who presented with pain from nodules over her left chest wall but was admitted after she was found to be confused from UTI. #Acute metabolic encephalopathy, resolved #UTI ? Patient presented with chest wall pain, see below. However, he was found to be confused in the setting of UTI. ? Initial UA grossly abnormal, urine culture pending at this time. ? Treated with IV ceftriaxone, patient significantly improved today. Back to baseline. Alert and oriented x 3. ? Discharged with cefdinir 300 mg twice daily for 5 more days. ? B12 levels noted to be low normal, discharged with cyanocobalamin 1000 mg daily. ? Will follow-up with PCP within 1 week. #Chest wall, pain nodules ? Patient states she recently traveled to [place] about a week ago, and began developing left-sided chest subcutaneous nodules. ? There is induration, and some pain with palpation. However, no overlying erythema, drainage. Patient denies fevers/chills. ? Patient is following up with PCP for these nodules, advised to continue to do so. May benefit from ultrasound/mammogram. CTA chest was nonrevealing at this time. #Hypertension ? Continue home amlodipine 5 mg, Coreg 25 mg twice daily. #History of CVA with left-sided deficit/facial droop ? Continue Plavix 75 mg daily, atorvastatin 40 mg. #Mood disorder ? Continue home Lexapro 20 mg, quetiapine 400 mg nightly. Chronic pain syndrome ? Continue home Percocet. Exam Data for Last 24 hours Vital signs and Labs for Last 24 Hours: Temp Pulse Resp BP Pulse Ox O2 Del Method 98.3 F 96 H 18 132/73 93 L Room Air 02/21/25 08:00 02/21/25 08:00 02/21/25 08:00 02/21/25 08:00 02/21/25 08:00 02/21/25 08:00 Laboratory Results - last 24 hr 02/20/25 18:48: WBC 7.5, RBC 3.70 L, Hgb 12.6, Hct 36.5 L, MCV 98.6, MCH 34.1 H, MCHC 34.5, RDW 12.3, Plt Count 236, MPV 10.3, Neut % (Auto) 61.5, Lymph % (Auto) 23.2, [place] % (Auto) 11.9 H, Eos % (Auto) 2.9, Baso % (Auto) 0.4, Neut # (Auto) 4.6, Lymph # (Auto) 1.7, [place] # (Auto) 0.9, Eos # (Auto) 0.2, Baso # (Auto) 0.0, Sodium 136, Potassium 4.0, Chloride 104, Carbon Dioxide 24, Anion Gap 12.0, BUN 20 H, Creatinine 0.70, Estimated Creat Clear 53, Estimated GFR 80, Est GFR ( Amer) 97, Glucose 135 H, Calcium 9.6, Total Bilirubin 0.7, AST 29, ALT 24, Alkaline Phosphatase 92, Troponin I < 0.01, Total Protein 7.9, Albumin 4.7, Globulin 3.2, Albumin/Globulin Ratio 1.5, Lipase 18 L 02/20/25 19:24: Urine Color Yellow, Urine Appearance Clear, Urine pH 7.0, Ur Specific [place] 1.020, Urine Protein Negative, Urine Glucose (UA) Negative, Urine Ketones Negative, Urine Blood Negative, Urine Nitrate Negative, Urine Bilirubin Negative, Urine Urobilinogen 0.2, Ur Leukocyte Esterase 2+ A, Urine RBC 5-10, Urine WBC 20-50, Ur Squamous Epith Cells 10-20, Amorphous Sediment 1+, Urine Bacteria 2+, Urine Mucus 1+ 02/21/25 07:25: WBC 6.0, RBC 3.47 L, Hgb 11.3 L D, Hct 34.8 L, MCV 100.3 H, MCH 32.6 H, MCHC 32.5, RDW 12.4, Plt Count 205, MPV 10.4, Neut % (Auto) 56.7, Lymph % (Auto) 26.1, [place] % (Auto) 13.0 H, Eos % (Auto) 3.3, Baso % (Auto) 0.7, Neut # (Auto) 3.4, Lymph # (Auto) 1.6, [place] # (Auto) 0.8, Eos # (Auto) 0.2, Baso # (Auto) 0.0, Sodium 135 L, Potassium 3.7, Chloride 105, Carbon Dioxide 24, Anion Gap 9.7, BUN 15, Creatinine 0.60, Estimated Creat Clear 48, Estimated GFR 96, Est GFR ( Amer) 116, Glucose 105 H D, Calcium 8.8, Vitamin B12 250, Procalcitonin 0.047, TSH 0.45 L I & O for Last 24 hours: Intake & Output 02/18/25 02/19/25 02/20/25 02/21/25 23:59 23:59 23:59 23:59 Intake Total 1340 / 1340 358 / 358 Output Total 1200 / 1200 Balance 1340 / 1340 -842 / -842 Weight 77.111 kg 69.899 kg Constitutional Constitutional: no acute distress *Routine HEENT Exam Head: Present normocephalic Eye: Present EOMI and PERRL ENT: Present mucous membranes moist *Routine Neck Exam Neck: Present supple; Absent lymphadenopathy *Routine Respiratory Exam Respiratory: Present CTA bilaterally *Routine Cardiovascular Exam Cardiovascular: Present RRR *Routine Abdominal Exam Abdominal: Present soft and normoactive bowel sounds; Absent tenderness *Routine Extremities Exam Extremities: Absent cyanosis, clubbing or edema *Routine Skin Exam Skin: Present warm; Absent rash Comments: Left chest wall subcutaneous scattered nodules with some tenderness to palpati on. No overlying erythema, drainage. *Routine Neurological Exam Neurological: Present alert and oriented X3 Comments: Left-sided facial droop. Results Data Completed and Pending Labs on day of discharge: Labs from last 24 hours 02/21/25 02/20/25 02/20/25 07:25 19:24 18:48 WBC 6.0 7.5 RBC 3.47 L 3.70 L Hgb 11.3 L D 12.6 Hct 34.8 L 36.5 L MCV 100.3 H 98.6 MCH 32.6 H 34.1 H MCHC 32.5 34.5 RDW 12.4 12.3 Plt Count 205 236 MPV 10.4 10.3 Neut % (Auto) 56.7 61.5 Lymph % (Auto) 26.1 23.2 [place] % (Auto) 13.0 H 11.9 H Eos % (Auto) 3.3 2.9 Baso % (Auto) 0.7 0.4 Neut # (Auto) 3.4 4.6 Lymph # (Auto) 1.6 1.7 [place] # (Auto) 0.8 0.9 Eos # (Auto) 0.2 0.2 Baso # (Auto) 0.0 0.0 Sodium 135 L 136 Potassium 3.7 4.0 Chloride 105 104 Carbon Dioxide 24 24 Anion Gap 9.7 12.0 BUN 15 20 H Creatinine 0.60 0.70 Estimated Creat Clear 48 53 Estimated GFR 96 80 Est GFR ( Amer) 116 97 Glucose 105 H D 135 H Calcium 8.8 9.6 Total Bilirubin 0.7 AST 29 ALT 24 Alkaline Phosphatase 92 Troponin I < 0.01 Total Protein 7.9 Albumin 4.7 Globulin 3.2 Albumin/Globulin Ratio 1.5 Lipase 18 L Vitamin B12 250 Procalcitonin 0.047 TSH 0.45 L Urine Color Yellow Urine Appearance Clear Urine pH 7.0 Ur Specific [place] 1.020 Urine Protein Negative Urine Glucose (UA) Negative Urine Ketones Negative Urine Blood Negative Urine Nitrate Negative Urine Bilirubin Negative Urine Urobilinogen 0.2 Ur Leukocyte Esterase 2+ A Urine RBC 5-10 Urine WBC 20-50 Ur Squamous Epith Cells 10-20 Amorphous Sediment 1+ Urine Bacteria 2+ Urine Mucus 1+ DS: Diagnosis Discharge Diagnosis (1) Altered mental status: Status: Acute Code(s): R41.82 - Altered mental status, unspecified Qualifiers: Altered mental status type: unspecified Qualified Code(s): R41.82 - Altered mental status, unspecified (2) UTI (urinary tract infection): Status: Acute Code(s): N39.0 - Urinary tract infection, site not specified Qualifiers: Hematuria presence: without hematuria Urinary tract infection type: site unspecified Qualified Code(s): N39.0 - Urinary tract infection, site not specified (3) Pleural effusion: Status: Acute Code(s): J90 - Pleural effusion, not elsewhere classified (4) Chest pain: Status: Acute Code(s): R07.9 - Chest pain, unspecified Qualifiers: Chest pain type: unspecified Qualified Code(s): R07.9 - Chest pain, unspecified Meds Home Medications and Allergies Home Medications ?Medication ?Instructions ?Recorded ?Confirmed ?Type escitalopram oxalate 20 mg tablet 20 mg PO DAILY 07/0502/20/25 History (Lexapro) amlodipine 5 mg tablet (Norvasc) 5 mg PO DAILY 0 02/20/25 History carvedilol 25 mg tablet 25 mg PO BID 01/27/23 History atorvastatin 40 mg tablet (Lipitor) 40 mg PO DAILY 03/1002/20/25 History clopidogrel 75 mg tablet (Plavix) 75 mg PO DAILY 01/2802/20/25 History oxycodone-acetaminophen 7.5 mg-325 1 tab PO TID 02/21/25 History mg tablet (Percocet) quetiapine 400 mg tablet (Seroquel) 400 mg PO HS 01/2802/20/25 History ergocalciferol (vitamin D2) 1,250 1,250 mcg PO WEEKLY 02/20/25 02/21/25 History mcg (50,000 unit) capsule eszopiclone 3 mg tablet 3 mg PO HS 02/20/25 02/20/25 History cefdinir 300 mg capsule 300 mg PO BID 5 days #10 cap s 02/21/25 Rx cyanocobalamin (vitamin B-12) 1,000 mcg PO DAILY #30 c aps 02/21/25 Rx 1,000 mcg capsule New Prescriptions to Start Prescriptions: cefdinir Anup Johnson cyanocobalamin (vitamin B-12) Anup Johnson Allergies Allergy/AdvReac Type Severity Reaction Status Date / Time haloperidol (From HALDOL) Allergy Unknown Other Verified 07/08/24 10:24 Discharge Plan Disposition Patient Disposition: Home, Self-Care Condition: Fair Follow up Plan Follow up with: Hawk Davis MD [Primary Care Provider, Internal Medicine] - Enter time for follow up Prescriptions/Medication Reconciliation: New cyanocobalamin (vitamin B-12) 1,000 mcg capsule 1,000 mcg PO DAILY Qty: 30 0RF cefdinir 300 mg capsule 300 mg PO BID 5 Days Qty: 10 0RF Continued amlodipine [Norvasc] 5 mg tablet 5 mg PO DAILY escitalopram oxalate [Lexapro] 20 MG tablet 20 mg PO DAILY ergocalciferol (vitamin D2) 1,250 mcg (50,000 unit) capsule 1,250 mcg PO WEEKLY eszopiclone 3 mg tablet 3 mg PO HS carvedilol 25 mg tablet 25 mg PO BID quetiapine [Seroquel] 400 mg tablet 400 mg PO HS Patient Comments: TAKE ONE TABLET BY MOUTH EVERY DAY AT BEDTIME atorvastatin [Lipitor] 40 mg tablet 40 mg PO DAILY Patient Comments: TAKE ONE TABLET BY MOUTH EVERY DAY clopidogrel [Plavix] 75 mg tablet 75 mg PO DAILY Patient Comments: TAKE ONE TABLET BY MOUTH EVERY DAY oxycodone-acetaminophen [Percocet] 7.5-325 mg tablet 1 tab PO TID Patient Comments: TAKE ONE TABLET BY MOUTH EVERY 6 HOURS MAY CAUSE DROWSINESS Problem Reconciliation Problems Reviewed?: Yes Patient Discharge Instructions Patient Instructions: Urinary Tract Infection Print Language: [place] Providers Primary Care Provider: Hawk Davis Admit Provider: Anup Johnson Attending Provider: Anup Johnson
[2025-02-21 12:00] VITALS: BP 122/74; PULSE 64; RESP 16; TEMP 36.7; O2SAT 98
[2025-02-21 12:04] LABS: NT Pro Brain Natriuretic Pep. 82.6 pg/mL (0-450)
[2025-02-21] MEDS: VITAMIN B-12 1,000 MCG 1ML VIAL 1000 MCG IM (12:22)
[2025-02-21] MEDS: CLOPIDOGREL 75MG TAB 75 MG PO (12:23)
[2025-02-21 13:11] LABS: Free T4 (Free Thyroxine) 1.00 ng/dl (0.78-2.19)
--- NOTE | 2025-02-23 11:53 | SW/DCPLANNER ---
Spoke with patient on the phone. Patient stated that she is doing good. Patient stated that she is aware of her upcoming appointments. Patient stated that she was able to picker operator her new medicine. Patient stated that she has no concerns or questions at this time. Curtis Dickinson
--- NOTE | 2025-02-24 08:20 | PC.NURSE ---
Urine culture forwarded to hospitalist.
== END 2025-02-21 12:20 | disposition home or self-care (01) ==
LOC: ER 18:42 → ICU 21:22
PROVIDERS: Nurse Practitioner Family; Admitting Provider Student in an Organized Health Care Education/Training Program; Emergency Provider Student in an Organized Health Care Education/Training Program; PCP Internal Medicine Adolescent Medicine; Visit Provider Student in an Organized Health Care Education/Training Program
DX: R41.82 Altered mental status, unspecified (principal); N39.0 Urinary tract infection, site not specified; J90 Pleural effusion, not elsewhere classified; R07.9 Chest pain, unspecified; F41.9 Anxiety disorder, unspecified; F32.A Depression, unspecified; E78.5 Hyperlipidemia, unspecified; I10 Essential (primary) hypertension; G43.909 Migraine, unspecified, not intractable, without status migrainosus; Z90.49 Acquired absence of other specified parts of digestive tract; Z90.710 Acquired absence of both cervix and uterus; Z88.8 Allergy status to other drugs, medicaments and biological substances; Z79.899 Other long term (current) drug therapy; Z79.02 Long term (current) use of antithrombotics/antiplatelets; Z86.73 Personal history of transient ischemic attack (TIA), and cerebral infarction without residual deficits; I44.0 Atrioventricular block, first degree; G93.89 Other specified disorders of brain; I65.23 Occlusion and stenosis of bilateral carotid arteries; G31.9 Degenerative disease of nervous system, unspecified
CPT/HCPCS: 36415; 70450; 71275; 73090; 73110; 80048; 80053; 81001; 82607; 83690; 83880; 84145; 84439; 84443; 84484; 85025; 87086; 87088; 87186; 93005; 99285; G0378; J0696; J1650; J3420; J7120; Q9967

== ENCOUNTER 2025-02-25 06:48 | Outpatient (CLI) | payer MEDICARE, SELFPAY ==
--- OUTSIDE RECORDS SUMMARY | 2025-01-24 03:51 | XMS_ITS | Encounter Summary ---
[facility] Address [address] [place] [address] Care Team Providers Care Astrophysics Professor Name Role Phone Hawk Davis MD Primary Care Provider [phone] Reason for Referral * Consultation (Routine) - Closed Specialty Diagnoses / Procedures Referred By Rodolfo lara Referred To Contact Neurology Diagnoses Memory deficit Procedures [place] OFFICE/OUTPATIENT NEW MODERATE MDM 45 MINUTES Sreedhar Boss DO [address] [facility] [address] [place] [address] Phone: tel: fax: Julianna Washington APRN [address] [facility] [address] [place] [address] Phone: tel: fax: Referral ID Status Reason Start Date Expiration Date V isits Requested Visits Authorized [id number] Closed Specialty Services Required 01/26/2025 04/27/2026 1 1 Reason for Visit * Auth/Cert Specialty Diagnoses / Procedures Referred By Rodolfo lara Referred To Contact Diagnoses Cerebrovascular Accident (cva) Referral ID Status Reason Start Date Expiration Date Visits Re quested Visits Authorized [id number] 1 1 Encounter Details Date Type Department Care Team (Late st Contact Info) Description 01/24/2025 3:51 AM EST - 01/26/2025 3:14 PM EST Hospital Encounter [address] [place] [address] Anup Daniel MD [address] [place] [address] Sreedhar Boss DO [address] [place] [address] [place] [address] Cognitive communication deficit (Primary Dx); [...] and heating? Not hard at all 01/26/2025 [facility] Occup[facility] - Occupational Stress [...] things needed for daily living? No 01/26/2025 [facility] Utilities Answer Date Recorded In the past [...] or training? Not on file Preferred Language Bermudian 01/26/2025 PHQ-2 Answer Date Recorded Patient Health [...] 01/24/2025 4:02 AM Hawk Reyes RN * [place] Suicide Severity Rating Scale (Screener/Recent Self-Report) Question [...] from the original note were not included. [facility] Medicine Services DISCHARGE SUMMARY Patient Name: [...] noticed slurred/incoherent speech and brought her to [facility]. She was evaluated as a code stroke, [...] - Possible culprits include polypharmacy with numerous DIE MAKER BENCH STAMPING affecting meds, early MCI/dementia, psychiatric illness, etc. [...] PCP 1 week Placed referral to neurology, CHRISTINAA Washington APRN for neurocognitive eval Day of [...] Urine Culture - Urine, Urine, Clean Catch [[id number]] (Abnormal) (Susceptibility) Collected: 01/24/25 0954 Lab Status: [...] Susceptible Respiratory Panel PCR w/COVID-19(SARS-CoV-2) CHERI/MAI/LO/PAD/COR/NATA In-House, MARKETING ADMINISTRATIVE ASSISTANT Swab in UTM/VTM, 2 HR TAT - Swab, Nasopharynx [[id number]] (Normal) Collected: 01/24/25 0851 Lab Status: Final [...] MD 01/26/2025 2:35 AM EST Workstation ID: [id number] Results for orders placed during the hospital [...] minutes on this discharge activity which included: azsg-fg-yqbojxmjksrjx with the patient, reviewing the data in [...] sent through Care Everywhere. * Aspirin Tablets (Bermudian) * Stroke Prevention Xkek-bi-Uvra (Bermudian) documented in this encounter Medications at Time [...] to light touch throughout. Coordination intact on csalwx-snqj-tgnuyj. Reflexes and gait deferred. Results Review: I [...] MD 01/26/2025 2:35 AM EST Workstation ID: [id number] Results for orders placed during the hospital [...] opiate use, and insomnia who presented to [facility] with complaints of slurred speech x 3 [...] Echocardiogram: EF 70%. No left atrial enlargement TAX STAFF ACCOUNTANT antiplatelet/anticoagulation/statin: Aspirin 81 mg, clopidogrel 75 mg, [...] on adequate secondary stroke prevention. Plan: Continue TAX STAFF ACCOUNTANT aspirin 81 mg daily Continue TAX STAFF ACCOUNTANT clopidogrel 75 mg daily Continue TAX STAFF ACCOUNTANT atorvastatin 40 mg daily LDL goal less than 70 TTE Long-term BP goal less than 130/80 PT/OT/INSULATION CUTTER Smoking cessation if applicable Patient education for [...] or concerns Ji Caldwell MD Vascular Neurologist [facility] * Marc Ambrocio MD - 01/25/2025 5:50 [...] Microscopic Only - Urine, Clean Catch Order: [id number] - Reflex for Order [id number] Status: Final result Next appt: None Test Result Released: Yes (not seen) Specimen Information: Urine, Clean Catch 0 Result Notes Component Ref Range & Units (hover) 1 d ago RBC, UA 21-50 Abnormal WBC, UA Too Numerous to Count Abnormal Bacteria, UA 4+ Abnormal Squamous Epithelial Cells, UA 0-2 Hyaline Casts, UA None Seen Methodology Manual Light Microscopy Resulting Agency [facility] Specimen Collected: 01/24/25 09:54 EST Last [...] from the original note were not included. [facility] Medicine Services PROGRESS NOTE Patient Name: [...] chronic LT facial droop; she presented to [facility] as a stroke alert for reported slurred [...] from the original note were not included. [facility] Medicine Services ADMISSION FOLLOW-UP NOTE Patient admitted after midnight, H&P by my partner performed earlier on today's date reviewed. Interim findings, labs, and charting also reviewed. The [facility] Hospital Problem List has been managed [...] chronic LT facial droop; she presented to [facility] as a stroke alert for reported slurred [...] from the original note were not included. [facility] Medicine Services HISTORY AND PHYSICAL Patient Name: Lucille Campuzano : 1940 Primary Care Physician: Hawk Davis MD Date of admission: 01/24/2025 Subjective Subjective Chief Complaint: Slurred speech, confusion HPI: Lucille Campuzano is a 84 y.o. 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 She presented to [facility] with diarrhea and vomiting, and family reported [...] imaging showed no bleed or LVO however [facility] unable to obtain MRI over the weekend [...] 8:24 AM ESTAssociated Order(s): IP CONSULT TO TRANSITION MGR RN Diabetes Education Patient Name: Lucille Campuzano Date [...] opiate use, and insomnia who presented to [facility] with complaints of slurred speech x 3 weeks per patient (LKW per son 2030 yesterday), diarrhea, vomiting, and fever. NIH 2 for residual left facial droop from prior stroke. Reported the patient was altered. She reported to [facility] that she recently had a facial surgery. Family reported that this was not accurate. CT head with chronic infarct in the right frontal lobe. CTA H/N with no evidence of LVO. Family requested transfer to [facility] for additional stroke workup and MRI. UA [...] Tylenol PM at bedtime. On arrival to [facility], NIH is 2 for baseline left facial [...] Procedure: ESOPHAGOGASTRODUODENOSCOPY; Surgeon: Kenton Cedillo MD; Location: [facility] ENDOSCOPY; Service: Gastroenterology; Laterality: N/A; ENDOSCOPY 12/22/2020 Procedure: ESOPHAGOGASTRODUODENOSCOPY WITH DEPLOYMENT OF PILL CAM FOR SMALL BOWEL ENTEROSCOPY; Surgeon: Kenton Cedillo MD; Location: [facility] ENDOSCOPY; Service: Gastroenterology;; Replacement of 16 fr [...] in upper and lower extremities. Coordination Right: Ujmcrm-cz-hxgd normal. Gmoc-oi-adek normal.Left: Eskpap-pq-dugg normal. Xvez-rl-yauo normal. Gait Not observed. Physical Exam Constitutional: [...] sodium chloride Functional Status Prior to Current Stroke/Jake Score: 1 NIH Stroke Scale Time: 0830 [...] opiate use, and insomnia who presented to [facility] with complaints of slurred speech x 3 [...] evidence of LVO. Family requested transfer to [facility] for additional stroke workup and MRI. UA with leukocyte esterase and bacteria. ABX held pending culture.Patient's granddaughter reported to the hospital medicine team that there is concern for increased confusion at night as well as accidentally taking extra doses of meds. Of note, she takes 400 mg of Seroquel, Lunesta, and occasionally Tylenol PM at bedtime. Antiplatelet/Anticoagulant/Statin TAX STAFF ACCOUNTANT: Plavix 75 mg, atorvastatin 40 mg #AMS [...] N.p.o. - Activity as tolerated/fall precautions - PT/OT/INSULATION CUTTER - Recommend avoiding sedating medications for now ( Seroquel, Lunesta). Okay for home oxycodone. Recommend decreasing frequency for now given concern for polypharmacy and AMS. - Plan discussed with Dr. Caldwell, patient, her family, and nursing staff. Stroke neurology willfollow MRI results. Please call with any questions or concerns. Kristina Whaley APRN, [facility] January 24, 2025 07:00 EST Cosigned [...] light in reach. * Dudley Gardner MS CCC-INSULATION CUTTER - 01/24/2025 3:06 PM EST Goal Outcome Evaluation: Plan of Care Reviewed With: patient, child Progress: no change Anticipated Discharge Disposition (INSULATION CUTTER): No further INSULATION CUTTER services warranted INSULATION CUTTER Diagnosis: cognitive-linguistic disorder (01/24/25 1330) INSULATION CUTTER Diagnosis Comments: Pt is resistant to information. She does not acknowledge deficits and declines to participate in any further INSULATION CUTTER assessment. (01/24/25 133) * Laney Riggins OT [...] 01/26/2025 11:58 AM EST Discharge Planning Assessment [facility] Patient Name: Lucille Campuzano Today's Date: 01/26/2025 [...] to home Patient/Family Anticipated Services at Transition lead case managerprocess safety manager Anticipated family or friend will provide Discharge Needs Assessment Equipment Currently Used at Home cane, straight Discharge Plan Row Name 01/26/25 1156 Plan Plan Home Patient/Family in Agreement with Plan yes Plan Comments Met with Ms. Trejo and her son in her room, to initiate discharge planning. She lives alone in [place]. She verified she has Medicare and [facility] insurance. Ms. Trejo uses [facility] [...] Reason for Consult discharge planning Preferred Language Bermudian Contact Information Permission Granted to Share Info With lead case managerzone manager Information Obtained for lead case managerreimbursement manager Status Row Name 01/26/25 1150 Functional Status Usual Activity Tolerance moderate Current Activity Tolerance moderate Functional Status, IADL Medications independent Meal Preparation independent Housekeeping independent Laundry independent Shopping independent Psychosocial No documentation. Abuse/Neglect No documentation. Legal No documentation. Substance Abuse No documentation. Patient Forms No documentation. Lila Meza RN * Therapy Evaluation - Dudley Gardner MS CCC-INSULATION CUTTER - 01/24/2025 3:06 PM EST Images from the original note were not included. Acute Care - Speech Language Pathology Initial Evaluation [place] Cognitive-Communication Evaluation Patient Name: Lucille Campuzano : [...] Procedure: COLONOSCOPY; Surgeon: Kenton Cedillo MD; Location: [facility] END[facility]COPY; Service: Gastroenterology; Laterality: N/A; ENDOSCOPY N/A 12/21/2020 Procedure: ESOPHAGOGASTRODUODENOSCOPY; Surgeon: Kenton Cedillo MD; Location: [facility] ENDOSCOPY; Service: Gastroenterology; Laterality: N/A; ENDOSCOPY 12/22/2020 Procedure: ESOPHAGOGASTRODUODENOSCOPY WITH DEPLOYMENT OF PILL CAM FOR SMALL BOWEL ENTEROSCOPY; Surgeon: Kenton Cedillo MD; Location: [facility] ENDOSCOPY; Service: Gastroenterology;; Replacement of 16 fr ng tube HYSTERECTOMY INSULATION CUTTER Recommendation and Plan Recommended discharge disposition is based on the functional assessment performed by PT/OT/Speech therapy (as applicable) and may not reflect the medical necessity determined by your provider or services covered by an individual patient's insurance plan or patient resource. INSULATION CUTTER Diagnosis: cognitive-linguistic disorder (01/24/251329) INSULATION CUTTER Diagnosis Comments: Pt is resistant to information. She does not acknowledge deficits and declines to participate in any further INSULATION CUTTER assessment. (01/24/251329) [facility] Criteria for Skilled Therapy Interventions Met: declined skilled intervention at this time (01/24/251329) Anticipated Discharge Disposition (INSULATION CUTTER): No further INSULATION CUTTER services warranted (01/24/251329) Progress: no change (01/24/25 1505) INSULATION CUTTER EVALUATION (Last 72 Hours) INSULATION CUTTER [facility] Evaluation Row Name 11/08/25 1330 Communication Assessment/Intervention Document Type evaluation -RS Subjective Information no complaints -RS Patient Observations agree to therapy;poorly cooperative -RS Patient/Family/Caregiver Comments/Observations son present -RS Patient Effort fair -RS Comment Pt states I hate therapy, my week at [facility] was the worst week of my life [...] though pt denies -RS Cognitive Assessment Intervention- INSULATION CUTTER Orientation Status (Cognition) person;place;time;WFL -RS Memory (Cognitive) [...] answer further questions. Son verbalizes understanding that INSULATION CUTTER service is available if pt changes her mind. D/w RN. Nothing further for INSULATION CUTTER to offer given pt refusal of services. -RS INSULATION CUTTER Evaluation Clinical Impressions INSULATION CUTTER Diagnosis cognitive-linguistic disorder -RS INSULATION CUTTER Diagnosis Comments Pt is resistant to information. She does not acknowledge deficits and declines to participate in any further INSULATION CUTTER assessment. -RS [facility] Criteria for Skilled Therapy Interventions Met declined skilled intervention at this time -RS Recommendations Anticipated Discharge Disposition (INSULATION CUTTER) No further INSULATION CUTTER services warranted -RS User Valencia (r) = Recorded By, (t) = Taken By, (c) = Cosigned By Initials Name Effective Dates RS Dudley Gardner MS CCC-INSULATION CUTTER 11/30/22 - EDUCATION The patient has been educated in the following areas: Cognitive Impairment. Time Calculation: Time Calculation- INSULATION CUTTER Row Name 01/24/25 1459 Time Calculation- INSULATION CUTTER INSULATION CUTTER Start Time 1330 -RS INSULATION CUTTER Received On 01/24/25 -RS Untimed Charges 76829-MI Eval Speech and Production w/ Language Minutes 39 -RS Total Minutes Untimed Charges Total Minutes 39 -RS Total Minutes 39 -RS User Valencia (r) = Recorded By, (t) = Taken By, (c) = Cosigned By Initials Name Provider Type RS Dudley Gardner MS CCC-INSULATION CUTTER Speech and Language Pathologist Therapy Charges for Today Code Description Service Date Service Provider Modifiers Qty [id number] HC ST EVAL SPEECH AND PROD W LANG 3 01/24/2025 Dudley Gardner MS CCC- INSULATION CUTTER GN 1 MS ETTA Samuel 01/24/2025 * [...] Procedure: COLONOSCOPY; Surgeon: Kenton Cedillo MD; Location: [facility] ENDOSCOPY; Service: Gastroenterology; Laterality: N/A; ENDOSCOPY N/A 12/21/2020 Procedure: ESOPHAGOGASTRODUODENOSCOPY; Surgeon: Kenton Cedillo MD; Location: [facility]COPY; Service: Gastroenterology; Laterality: N/A; ENDOSCOPY 12/22/2020 Procedure: ESOPHAGOGASTRODUODENOSCOPY WITH DEPLOYMENT OF PILL CAM FOR SMALL BOWEL ENTEROSCOPY; Surgeon: Kenton Cedillo MD; Location: [facility]COPY; Service: Gastroenterology;; Replacement of 16 fr [...] Bed Mobility Bed Mobility supine-sit;scooting/bridging - Scooting/Bridging [place] (Bed Mobility) standby assist - Supine-Sit [place] (Bed Mobility) standby assist;verbal cues - Assistive Device (Bed Mobility) bed rails;head of bed elevated - Row Name 01/24/251123 Transfers Transfers sit-stand transfer - Comment, (Transfers) No AD for transfers or mobility. Pt can be impulsive and requires cues at times for safety. - Row Name 01/24/25 112 Sit-Stand Transfer Sit-Stand [place] (Transfers) contact guard;verbal cues - Row Name 01/24/25 112 Functional Mobility Functional Mobility- Ind. Level contact guard assist;verbal cues required - Functional Mobility-Distance (Feet) -- HH distance - Row Name 01/24/25 112 Activities of Daily Living BADL Assessment/Intervention lower body dressing;other (see comments) Pt already completed groomingfor the day. - Row Name 01/24/25 112 Lower Body Dressing Assessment/Training [place] Level (Lower Body Dressing) don;doff;socks;set up - [...] (OT) Activity/Assistive Device (Transfer Goal 1, OT) dwu-qv-eppor/pgurc-wy-vvy;jbt-fq-gmons/ogbux-gn-tax;toilet - [place] Level/Cues Needed (Transfer Goal 1, OT) standby assist - Time Frame (Transfer Goal 1, OT) penitentiary goal (LTG);10 days - Strategies/Barriers (Transfers Goal 1, OT) Demonstrating improved safety awareness/follow-through. - Progress/Outcome (Transfer Goal 1, OT) new goal - Row Name 01/24/25 1132 Toileting Goal 1 (OT) Activity/Device (Toileting Goal 1, OT) adjust/manage clothing;perform perineal hygiene -AJ [place] Level/Cues Needed (Toileting Goal 1, OT) contact guard required -AJ Time Frame (Toileting Goal 1, OT) short term goal (STG);5 days -AJ Progress/Outcome (Toileting Goal 1, OT) new goal -AJ Row Name 01/24/25 1132 Grooming Goal 1 (OT) Activity/Device (Grooming Goal 1, OT) oral care;wash face, hands -AJ [place] (Grooming Goal 1, OT) standby assist -AJ Time Frame (Grooming Goal 1, OT) penitentiary goal (LTG);10 days -AJ Strategies/Barriers (Grooming Goal [...] Cosigned By Initials Name Provider Type Laney Saeur, OT Occupational Therapist Clinical Impression Row Name [...] elevated;waffle cushion;heels elevated;with other staff - User Valencai (r) = Recorded By, (t) = Taken [...] 01/24/25 1133 Modified Jake Scale Pre-Stroke Modified Montcalm Scale 6 - Unable to determine (UTD) from the medical record documentation - Modified Montcalm Scale 3 - Moderate disability. Requiring some help, but able to walk without assistance. - Row Name 01/24/25 1133 Functional Assessment Outcome Measure Options AM-PAC 6 Clicks Daily Activity (OT);Modified Jake - User Valencia (r) = Recorded By, (t) = Taken By, (c) = Cosigned By Initials Name Provider Type Hawk Treviño, TRACI Registered Nurse Laney Sauer OT Occupational Therapist Maisha Kim, TRACI Registered Nurse Sandhya Dumont RN Registered Nurse Occupational Therapy Education Title: PT OT INSULATION CUTTER Therapies (In Progress) Topic: Occupational Therapy (In [...] Description Service Date Service Provider Modifiers Qty [id number] OT EVAL LOW COMPLEXITY 4 01/24/2025 Laney [...] Procedure: COLONOSCOPY; Surgeon: Kenton Cedillo MD; Location: [facility] ENDOSCOPY; Service: Gastroenterology; Laterality: N/A; ENDOSCOPY N/A 12/21/2020 Procedure: ESOPHAGOGASTRODUODENOSCOPY; Surgeon: Kenton Cedillo MD; Location: [facility] ENDOSCOPY; Service: Gastroenterology; Laterality: N/A; ENDOSCOPY 12/22/2020 Procedure: ESOPHAGOGASTRODUODENOSCOPY WITH DEPLOYMENT OF PILL CAM FOR SMALL BOWEL ENTEROSCOPY; Surgeon: Kenton Cedillo MD; Location: [facility] ENDOSCOPY; Service: Gastroenterology;; Replacement of 16 fr [...] Entrance railing on left side (ascending) -NS [facility] Name 01/24/25 1040 Stairs Within Home, Primary Number of Stairs, Within Home, Primary none -NS [facility] Name 01/24/25 1040 Cognition Orientation Status (Cognition) oriented x 3 some situational confusion -NS [facility] Name 01/24/25 1040 Safety Issues/Impairments Affecting Functional [...] NS Hailey Acuna PT Physical Therapist Mobility [facility] Name 01/24/25 1040 Bed Mobility Bed Mobility supine-sit -NS Supine-Sit [place] (Bed Mobility) standby assist -NS Assistive Device (Bed Mobility) bed rails;head of bed elevated -NS [facility] 01/24/25 1040 Transfers Comment, (Transfers) impulsive with mobility, cues for safety with lines -NS [facility] 01/24/25 1040 Sit-Stand Transfer Sit-Stand [place] (Transfers) contact guard;verbal cues -[facility] 01/24/25 1040 Gait/Stairs (Locomotion) [place] Level (Gait) contact guard -NS Patient was [...] Motion bilateral lower extremity ROM WFL -NS [facility] Name 01/24/25 1040 Strength Comprehensive (MMT) General [...] Assessment (Somatosensory) LE sensation intact -NS User Vlaencia (r) = Recorded By, (t) = Taken By, (c) = Cosigned By Initials Name Provider Type Hailey Li PT Physical Therapist Goals/Plan Row Name 01/24/25 1040 Bed Mobility Goal 1 (PT) Activity/Assistive Device (Bed Mobility Goal 1, PT) supine to sit -NS [place] Level/Cues Needed (Bed Mobility Goal 1, PT) independent -NS Time Frame (Bed Mobility Goal 1, PT) short term goal (STG);5 days -NS [facility] Name 01/24/25 1040 Transfer Goal 1 (PT) Activity/Assistive Device (Transfer Goal 1, PT) uuc-iw-akpms/ruhfh-ze-gub;dch-ct-ievgn/yctji-ve-cni-NS [place] Level/Cues Needed (Transfer Goal 1, PT) standby assist -NS Time Frame (Transfer Goal 1, PT) watermaster goal (LTG);10 days -NS Row Name 01/24/25 1040 Gait Training Goal 1 (PT) Activity/Assistive Device (Gait Training Goal 1, PT) gait (walking locomotion) -NS [place] Level (Gait Training Goal 1, PT) standby assist -NS Distance (Gait Training Goal 1, PT) 400 -NS Time Frame (Gait Training Goal 1, PT) penitentiary goal (LTG);10 days -NS Row Name 01/24/25 1040 Stairs Goal 1 (PT) Activity/Assistive Device (Stairs Goal 1, PT) ascending stairs;descending stairs -NS [place] Level/Cues Needed (Stairs Goal 1, PT) standby assist -NS Number of Stairs (Stairs Goal 1, PT) 2 -NS Time Frame (Stairs Goal 1, PT) watermaster goal (LTG);10 days -NS Row Name 01/24/25 [...] 01/24/25 1040 Modified Jake Scale Pre-Stroke Modified Montcalm Scale 6 - Unable to determine (UTD) from the medical record documentation -AJ 6 - Unable to determine (UTD) from the medical record documentation -NS Modified Jake Scale 3 - Moderate disability. Requiring some help, but able to walk without assistance. -AJ 3 - Moderate disability. Requiring some help, but able to walk without assistance. -NS Row Name 01/24/25 1133 01/24/25 1040 Functional Assessment Outcome Measure Options AM-PAC 6 Clicks Daily Activity (OT);Modified Montcalm -AJ AM-PAC 6 Clicks Basic Mobility (PT);Modified Montcalm -NS User Valencia (r) = Recorded By, (t) = Taken By, (c) = Cosigned By Initials Name Provider Type Hailey Li, PT Physical Therapist Hawk Yoo, TRACI Registered Nurse Laney Sauer, OT Occupational Therapist Maisha Kim, TRACI Registered Nurse Sandhya Dumont, TRACI Registered Nurse Physical Therapy Education Title: PT OT INSULATION CUTTER Therapies (In Progress) Topic: Physical Therapy (In [...] Description Service Date Service Provider Modifiers Qty [id number] HC PT EVAL MOD COMPLEXITY 4 01/24/2025 Hailey Acuna, PT GP 1 PT G-Codes Outcome Measure Options: AM-PAC 6 Clicks Daily Activity (OT), Modified Jake AM-PAC 6 Clicks Score (PT): 19 AM-PAC 6 Clicks Score (OT): 20 Modified Jake Scale: 3 - Moderate disability. Requiring some [...] EST RESPIRATORY PANEL PCR W/ COVID-19 (SARS-COV-2), MARKETING ADMINISTRATIVE ASSISTANT SWAB IN UTM/VTP, 2 HR TAT Routine [...] MD 01/26/2025 2:35 AM EST Workstation ID: [id number] Narrative 01/26/2025 2:35 AM EST MRI BRAIN [...] MD 01/26/2025 2:35 AM EST Workstation ID: [id number] Kristina Whaley DIRECTOR OF ONLINE MERCHANDISING IM MRI ORDERABLES Final Result * Lipid Panel (01/25/2025 10:45 AM EST) Total Cholesterol 132 0 - 200 mg/dL 01/25/2025 11:24 AM EST [facility] Triglycerides 64 0 - 150 mg/dL 01/25/2025 11:24 AM EST [facility] HDL Cholesterol 60 40 - 60 mg/dL 01/25/2025 11:24 AM EST [facility] LDL Cholesterol 59 0 - 100 mg/dL 01/25/2025 11:24 AM EST [facility] VLDL Cholesterol 13 5 - 40 mg/dL 01/25/2025 11:24 AM EST [facility] LDL/HDL Ratio 0.99 01/25/2025 11:24 AM EST [facility] Blood Venipuncture / Unknown 01/25/2025 10:45 AM EST 01/25/2025 10:54 AM EST [facility] - 01/25/2025 11:24 AM EST Cholesterol [...] ORDERABLES Fin al Result Performing Organization Address [facility] Hospital/[facility] Co de Phone Number [facility]
[address] [place] [address], * (ABNORMAL) Hemoglobin A1c (01/25/2025 10:45 AM EST) Hemoglobin A1C 5.76(H) 4.80 - 5.60 % 01/25/2025 11:23 AM EST [facility] Blood Venipuncture / Unknown 01/25/2025 10:45 AM EST 01/25/2025 10:54 AM EST Narrative [facility] - 01/25/2025 11:23 AM EST Hemoglobin A1C Ranges: Increased Risk for Diabetes 5.7% to 6.4% Diabetes >= 6.5% Diabetic Goal < 7.0% Kristina Whaley DIRECTOR OF ONLINE MERCHANDISING LAB BLOOD ORDERABLES Fin al Result Performing Organization Address City/[facility]/ZIP Co de Phone Number [facility]
[address] [place] [address], * ECHO COMPLETE W/ DOPPLER AND COLOR [...] is technically adequate for diagnosis. Kristina Whaley DIRECTOR OF ONLINE MERCHANDISING CV ECHO ORDERABLES Final Result * POC Glucose Once (01/24/2025 4:36 PM EST) Glucose 102 70 - 130 mg/dL 01/24/2025 4:39 PM EST [facility] Comment:Serial Number: [id number]: [id number] Blood 01/24/2025 4:36 PM EST 01/24/2025 4:39 PM EST Sreedhar Cleaningsejal Boss DO POINT OF CARE TEST ORDERA BLES Final Result Performing Organization Address City/[facility]/ZIP Co de Phone Number [facility]
[address] [place] [address], * POC Glucose Once (01/24/2025 11:56 AM EST) [facility] Glucose 91 70 - 130 mg/dL 01/24/2025 11:58 AM EST [facility] Comment:Serial Number: [id number]: [id number] Blood 01/24/2025 11:5 6 AM EST 01/24/2025 11:58 AM EST Sreedhar Uri Boss DO POINT OF CARE TEST ORDERA BLES Final Result Performing Organization Address [facility] Phone Number [facility]
[address] [place] [address], * (ABNORMAL) Urine Culture - Urine, Urine, Clean Catch (01/24/2025 9:54 AM EST) [facility] Urine Culture >100,000 CFU/mL Escherichia coli(A) CELENA 01/26/2025 9:42 AM EST [facility] Urine Urine specimen obtained by clean catch procedure / Unknown Collection / Unknown 01/24/2025 9:54 AM EST 01/24/2025 10:27 AM EST Narrative [facility] - 01/26/2025 9:42 AM EST Colonization [...] MICROBIOLOGY - GENERAL ORDERA BLES Final Result [facility]
[address] [place] [address], * (ABNORMAL) Urinalysis, Microscopic Only - Urine, Clean Catch (01/24/2025 9:54 AM EST) RBC, UA 21-50(A) None Seen, 0-2 /HPF 01/24/2025 11:02 AM EST [facility] WBC, UA Too Numerous to Count(A) None Seen, 0-2 /HPF 01/24/2025 11:02 AM EST [facility] Bacteria, UA 4+(A) None Seen /HPF 01/24/2025 11:02 AM EST [facility] Squamous Epithelial Cells, UA 0-2 None Seen, 0-2 /HPF 01/24/2025 11:02 AM EST [facility] Hyaline Casts, UA None Seen None Seen /LPF 01/24/2025 11:02 AM EST [facility] Methodology Manual Light Microscopy 01/24/2025 11:02 AM [facility] Urine Urine specimen obtained by clean catch procedure / Unknown Collection / Unknown 01/24/2025 9:54 AM EST 01/24/2025 10:27 AM EST Anup Daniel MD URINE ORDERABLES Final Result [facility]
[address] [place] [address], * (ABNORMAL) Urinalysis With Culture If Indicated - Urine, Clean Catch (01/24/2025 9:54 AM EST) Color, UA Yellow Yellow, Straw 01/24/2025 10:35 AM [facility] Appearance, UA Turbid(A) Clear 01/24/2025 10:35 AM [facility] pH, UA 7.0 5.0 - 8.0 01/24/2025 10:35 AM [facility] Specific Melbeta, UA 1.010 1.005 - 1.030 01/24/2025 10:35 AM [facility] Glucose, UA Negative Negative 01/24/2025 10:35 AM [facility] Ketones, UA Negative Negative 01/24/2025 10:35 AM [facility] Bilirubin, UA Negative Negative 01/24/2025 10:35 AM [facility] Blood, UA Large (3+)(A) Negative 01/24/2025 10:35 AM [facility] Protein, UA Negative Negative 01/24/2025 10:35 AM [facility] Leuk Esterase, UA Large (3+)(A) Negative 01/24/2025 10:35 AM [facility] Nitrite, UA Negative Negative 01/24/2025 10:35 AM [facility] Urobilinogen, UA 0.2 E.U./dL 0.2 - 1.0 E.U./dL 01/24/2025 10:35 AM [facility] Urine Urine specimen obtained by clean catch procedure / Unknown Collection / Unknown 01/24/2025 9:54 AM EST 01/24/2025 10:27 AM EST [facility] - 01/24/2025 10:35 AM EST In absence of clinical symptoms, the presence of pyuria, bacteria, and/or nitrites on the urinalysis result does not correlate with infection. Anup Daniel MD URINE ORDERABLES Final Result [facility]
[address] [place] [address], * Respiratory Panel PCR w/COVID-19(SARS-CoV-2) CHERI/MAI/LO/PAD/COR/NATA In-House, MARKETING ADMINISTRATIVE ASSISTANT Swab in UTM/VTM, 2 HR TAT - Swab, Nasopharynx (01/24/2025 8:51 AM EST) ADENOVIRUS, PCR Not Detected Not Detected BIOFIRE TORCH 01/24/2025 12:56 PM [facility] Coronavirus 229E Not Detected Not Detected BIOFIRE TORCH 01/24/2025 12:56 PM [facility] Coronavirus HKU1 Not Detected Not Detected BIOFIRE TORCH 01/24/2025 12:56 PM [facility] Coronavirus NL63 Not Detected Not Detected BIOFIRE TORCH 01/24/2025 12:56 PM [facility] Coronavirus OC43 Not Detected Not Detected BIOFIRE TORCH 01/24/2025 12:56 PM [facility] COVID19 Not Detected Not Detected - Ref. Range BIOFIRE TORCH 01/24/2025 12:56 PM [facility] Human Metapneumovirus Not Detected Not Detected BIOFIRE TORCH 01/24/2025 12:56 PM [facility] Human Rhinovirus/Enterov irus Not Detected Not Detected BIOFIRE TORCH 01/24/2025 12:56 PM [facility] Influenza A PCR Not Detected Not Detected BIOFIRE TORCH 01/24/2025 12:56 PM [facility] Influenza B PCR Not Detected Not Detected BIOFIRE TORCH 01/24/2025 12:56 PM [facility] Parainfluenza Virus 1 Not Detected Not Detected BIOFIRE TORCH 01/24/2025 12:56 PM [facility] Parainfluenza Virus 2 Not Detected Not Detected BIOFIRE TORCH 01/24/2025 12:56 PM [facility] Parainfluenza Virus 3 Not Detected Not Detected BIOFIRE TORCH 01/24/2025 12:56 PM [facility] Parainfluenza Virus 4 Not Detected Not Detected BIOFIRE TORCH 01/24/2025 12:56 PM [facility] RSV, PCR Not Detected Not Detected BIOFIRE TORCH 01/24/2025 12:56 PM [facility] Bordetella pertussis pcr Not Detected Not Detected BIOFIRE TORCH 01/24/2025 12:56 PM [facility] Bordetella parapertussis PCR Not Detected Not Detected BIOFIRE TORCH 01/24/2025 12:56 PM [facility] Chlamydophila pneumoniae PCR Not Detected Not Detected BIOFIRE TORCH 01/24/2025 12:56 PM [facility] Mycoplasma pneumo by PCR Not Detected Not Detected BIOFIRE TORCH 01/24/2025 12:56 PM [facility] Swab Nasopharyngeal structure / Unknown Collection / Unknown 01/24/2025 8:51 AM EST 01/24/2025 11:32 AM [facility] - 01/24/2025 12:56 PM EST [...] ORDERA BLES Final Result Performing Organization Address [facility] Co de Phone Number [facility]
[address] [place] [address], * POC Glucose Once (01/24/2025 7:39 AM EST) Glucose 93 70 - 130 mg/dL 01/24/2025 7:42 AM EST [facility] Comment:Serial Number: [id number]: [id number] Blood 01/24/2025 7:39 AM EST 01/24/2025 7:42 AM EST Sreedhar Boss DO POINT OF CARE TEST ORDERA BLES Final Result Performing Organization Address [facility] de Phone Number [facility]
[address] [place] [address], * Telemetry Scan (01/24/2025 7:33 AM EST) [facility] ECG ORDERABLES Final Result * TSH (01/24/2025 6:17 AM EST) TSH 0.293 0.270 - 4.200 uIU/mL 01/24/2025 7:32 AM EST [facility] Blood Venipuncture / Unknown 01/24/2025 6:17 AM EST 01/24/2025 6:57 AM EST Anup Daniel MD LAB BLOOD ORDERABLES Final Re sult Performing Organization Address [facility] Co de Phone Number [facility]
[address] [place] [address], * Magnesium (01/24/2025 6:17 AM EST) Magnesium 2.3 1.6 - 2.4 mg/dL 01/24/2025 7:32 AM EST [facility] Blood Venipuncture / Unknown 01/24/2025 6:17 AM EST 01/24/2025 6:57 AM EST Anup Daniel MD LAB BLOOD ORDERABLES Final Re sult [facility]
[address] [place] [address], * (ABNORMAL) Comprehensive Metabolic Panel (01/24/2025 6:17 AM EST) Pathologist [facility] Glucose 93 65 - 99 mg/dL 01/24/2025 7:32 AM [facility] BUN 9.5 8.0 - 23.0 mg/dL 01/24/2025 7:32 AM [facility] Creatinine 0.60 0.57 - 1.00 mg/dL 01/24/2025 7:32 AM [facility] Sodium 143 136 - 145 mmol/L 01/24/2025 7:32 AM [facility] Potassium 3.7 3.5 - 5.2 mmol/L 01/24/2025 7:32 AM [facility] Chloride 108(H) 98 - 107 mmol/L 01/24/2025 7:32 AM [facility] CO2 24.3 22.0 - 29.0 mmol/L 01/24/2025 7:32 AM [facility] Calcium 8.6 8.6 - 10.5 mg/dL 01/24/2025 7:32 AM [facility] Total Protein 7.0 6.0 - 8.5 g/dL 01/24/2025 7:32 AM [facility] Albumin 4.4 3.5 - 5.2 g/dL 01/24/2025 7:32 AM [facility] ALT (SGPT) 20 1 - 33 U/L 01/24/2025 7:32 AM EST [facility] AST (SGOT) 19 1 - 32 U/L 01/24/2025 7:32 AM EST [facility] Alkaline Phosphatase 91 39 - 117 U/L 01/24/2025 7:32 AM EST [facility] Total Bilirubin 0.3 0.0 - 1.2 mg/dL 01/24/2025 7:32 AM [facility] Globulin 2.6 gm/dL 01/24/2025 7:32 AM [facility] Comment:Calculated Result A/G Ratio 1.7 g/dL 01/24/2025 7:32 AM [facility] BUN/Creatinine Ratio 15.8 7.0 - 25.0 01/24/2025 7:32 AM [facility] Anion Gap 10.7 5.0 - 15.0 mmol/L 01/24/2025 7:32 AM [facility] eGFR 89.7 >60.0 mL/min/1.7 3 01/24/2025 7:32 AM [facility] Blood Venipuncture / Unknown 01/24/2025 6:17 AM EST 01/24/2025 6:57 AM EST [facility] - 01/24/2025 7:32 AM EST GFR [...] MD LAB BLOOD ORDERABLES Final Re sult [facility]
[address] [place] [address], * (ABNORMAL) CBC (No Diff) (01/24/2025 6:16 AM EST) WBC 10.37 3.40 - 10.80 10*3/mm3 01/24/2025 7:09 AM EST [facility] RBC 4.03 3.77 - 5.28 10*6/mm3 01/24/2025 7:09 AM EST [facility] Hemoglobin 13.7 12.0 - 15.9 g/dL 01/24/2025 7:09 AM [facility] Hematocrit 41.6 34.0 - 46.6 % 01/24/2025 7:09 AM [facility] MCV 103.2(H) 79.0 - 97.0 fL 01/24/2025 7:09 AM [facility] MCH 34.0(H) 26.6 - 33.0 pg 01/24/2025 7:09 AM [facility] MCHC 32.9 31.5 - 35.7 g/dL 01/24/2025 7:09 AM [facility] RDW 11.9(L) 12.3 - 15.4 % 01/24/2025 7:09 AM [facility] RDW-SD 45.7 37.0 - 54.0 fl 01/24/2025 7:09 AM [facility] MPV 10.8 6.0 - 12.0 fL 01/24/2025 7:09 AM [facility] Platelets 157 140 - 450 10*3/mm3 01/24/2025 7:09 AM [facility] Blood Venipuncture / Unknown 01/24/2025 6:16 AM EST 01/24/2025 6:58 AM EST us Anup Daniel MD LAB BLOOD ORDERABLES Final Re sult [facility]
[address] [place] [address], * ECG 12 Lead QT Measurement (01/24/2025 [...] 01/24/25 at 2100, If patient fails dysphagia, [place] option MUST be given. Do not exceed [...] 01/24/25 at 2100, If patient fails dysphagia, [place] option MUST be given. Do not exceed [...] 01/24/25 at 2100, If patient fails dysphagia, [place] option MUST be given. Do not exceed [...] 01/24/25 at 2100, If patient fails dysphagia, [place] option MUST be given. Do not exceed [...] Boss DO)1049 (Given - Provider: Maninder Mosquera RN)1728 (Given - Provider: Maninder Mosquera RN) [...] BPA Driven Protocol Open Order & [facility] Electrolyte Replacement Protocol Algorithm to View Details [...] 01/24/25 at 2100, If patient fails dysphagia, [place] option MUST be given. Do not exceed [...] 01/24/25 at 2100, If patient fails dysphagia, [place] option MUST be given. Do not exceed [...] diarrhea documented in this encounter Care Teams Astrophysics Professor Relationship Specialty Start Date End Date Hawk Davis MD [address] [facility] [address] [place] [address] PCP - General Adolescent Medicine 12/20/20 documented as of this encounter
--- NOTE | 2025-02-25 06:50 | CT_ITS ---
FINAL REPORT TECHNIQUE: Axial images were obtained through the chest without contrast. Multiplanar reconstructions in the sagittal and coronal planes were subsequently performed. This study was performed with techniques to keep radiation doses as low as reasonably achievable (ALARA). Individualized dose reduction techniques using automated exposure control or adjustment of mA and/or kV according to the patient's size were employed. CLINICAL HISTORY: CHEST MASS COMPARISON: 02/20/2025 CTA of the chest FINDINGS: CT CHEST WITHOUT CONTRAST: There is heterogeneous attenuation and calcification in the thyroid gland. No mediastinal mass or adenopathy is noted. Scarring is present in the lung bases. The heart size is normal. There is a small right and small to moderate left pleural effusion, which may be partially loculated medially. These were seen on the prior CTA of 02/20/2025. Limited images of the upper abdomen demonstrate bilateral cysts, as well as bilateral hepatic cysts which measure up to 2.8 cm in size. 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 No suspicious infiltrate or nodule identified. IMPRESSION: Small right and small to moderate left pleural effusions, which may be partially loculated medially, not significantly changed since the prior exam of 02/20/2025. Reviewed, Interpreted and Dictated by Hilton Santoro MD Transcribed by Shanta Elena Authenticated and [facility]
--- OUTSIDE RECORDS SUMMARY | 2025-02-25 06:51 | XMS_ITS | Encounter Summary ---
Author Organization [employer] ([place], [place], [place], [place], [place]) Address [address] [place] [address] Care Team Providers Care Toddler Lead Teacher Name Role Phone Unavailable Primary Care Provider Unavailabl e Encounter Details Date Type Department Care Team (Late st Contact Info) Description 09/22/2020 Transcribed Document [facility] [place] Family Medicine [address] [place] [address] ProviderShannan MD [address] [place] [address] Social History Tobacco Use Types [...] 09/22/2020 5:20 EDT Electronically signed by Alonzo [facility] Conversion Email Marketing Executive Cerner at 07/05/2022 11:52 PM CDT documented in this encounter Plan of Treatment Not on file documented as of this encounter Visit Diagnoses Not on filedocumented in this encounter
--- OUTSIDE RECORDS SUMMARY | 2025-02-25 06:51 | XMS_ITS | Encounter Summary ---
Author Organization [facility] yste Address [address] [place] [address] Care Team Providers Care Front End Software Engineer Name Role Phone Hawk Davis MD Primary Care Provider [phone] Encounter Details Date Type Department Care Team [...] 01/24/2025 4:02 AM Hawk Reyes RN * Hines Suicide Severity Rating Scale (Screener/Recent Self-Report) Question Answer Date of Assessment Author 6. Suicidal Behavior (Lifetime) No 4:02 AM Hawk Camarillo RN documented as of this encounter Plan of Treatment Not on file documented as of this encounter Visit Diagnoses Not on filedocumented in this encounter Care Teams Front End Software Engineer Relationship Specialty Start Date End Date Hawk Davis MD [address] [facility] [address] [facility] [address] PCP - General Adolescent Medicine 12/20/20 documented as of this encounter
--- OUTSIDE RECORDS SUMMARY | 2025-02-25 06:52 | XMS_ITS | Encounter Summary ---
Author Organization [employer] ([place], [place], [place], [place], [place]) Address [address] [place] [address] Care Team Providers Care Supervisor Gear Repair Name Role Phone Unavailable Primary Care Provider Unavailabl e Encounter Details Date Type Department Care Team (Late st Contact Info) Description 09/21/2020 Transcribed Document [facility] [place] Family Medicine [address] [place] [address] ProviderShannan MD [address] [place] [address] Social History Tobacco Use Types [...] 09/21/2020 5:01 EDT Electronically signed by Alonzo [facility] Conversion Admissions Director Cerner at 07/05/2022 11:55 PM CDT documented in this encounter Plan of Treatment Not on file documented as of this encounter Visit Diagnoses Not on filedocumented in this encounter
--- OUTSIDE RECORDS SUMMARY | 2025-02-25 06:52 | XMS_ITS | Encounter Summary ---
Author Organization [employer] ([place], [place], [place], [place], [place]) Address [address] [place] [address] Care Team Providers Care Glove Finisher Name Role Phone Unavailable Primary Care Provider Unavailabl e Encounter Details Date Type Department Care Team (Late st Contact Info) Description 09/21/2020 Transcribed Document [facility] [place] [address] [place] [address] ProviderShannan MD [address] [place] [address] Social History Tobacco Use Types [...] 09/21/2020 15:05 EDT Electronically signed by Alonzo [facility] Conversion Planer Operator / Grader Cerner at 07/05/2022 11:55 PM CDT documented in this encounter Plan of Treatment Not on file documented as of this encounter Visit Diagnoses Not on filedocumented in this encounter
--- OUTSIDE RECORDS SUMMARY | 2025-02-25 06:52 | XMS_ITS | Encounter Summary ---
Author Organization [employer] ([place], [place], [place], [place], [place]) Address [address] [place] [address] Care Team Providers Care Retail Advertising Sales Manager Name Role Phone Unavailable Primary Care Provider Unavailabl e Encounter Details Date Type Department Care Team (Late st Contact Info) Description 09/23/2020 Transcribed Document [facility] [place] Family Medicine [address] [place] [address] ProviderShannan MD [address] [place] [address] Social History Tobacco Use Types Packs/Day Years Used Date Smoking Tobacco: Never Assessed Comments Unknown Sex and Gender Information Value Date Recorded Sex Assigned at Not on file Legal Sex Female 7:22 PM CDT Gender Identity Not on file Sexual Orientation Not on file documented as of this encounter Miscellaneous Notes * Cerner Conversion Note - Shannan ProviderMD - 09/23/2020 12:07 PM CDT Nursing [...] 09/23/2020 12:07 EDT Electronically signed by Alonzo [facility] Conversion Employment Director Cerner at 07/05/2022 11:39 PM CDT documented in this encounter Plan of Treatment Not on file documented as of this encounter Visit Diagnoses Not on filedocumented in this encounter
--- OUTSIDE RECORDS SUMMARY | 2025-02-25 06:52 | XMS_ITS | Encounter Summary ---
Author Organization [employer] ([place], [place], [place], [place], [place]) Address [address] [place] [address] Care Team Providers Care Animator Name Role Phone Unavailable Primary Care Provider Unavailabl e Encounter Details Date Type Department Care Team (Late st Contact Info) Description 09/21/2020 Transcribed Document [facility] [place] [address] [place] [address] ProviderShannan MD [address] [place] [address] Social History Tobacco Use Types [...] On: 09/21/2020 14:39 EDT by FAISAL PONCE Rn-Tow Mate Initial Assessment I Previously Documented Living Environment [...] Listed? : Yes Medical Durable Power of Case Liner Name : Christiano White/[facility] to provide copy Legal Guardian : No Is Guardianship Needed : No FAISAL PONCE Rn-Tow Mate - 09/21/2020 14:39 EDT Initial Assessment II Sensory and Motor Deficits : None Current Home Treatments and Equipment : None FAISAL PONCE Rn-Tow Mate - 09/21/2020 14:39 EDT Discharge Needs I Anticipated Discharge Date : 09/22/2020 EDT Anticipated Discharge To, CM : Home with family care Current Home Treatment/Equipment : Current Home Treatment/Equipment No qualifying data available. Post Acute/Home Treatments : None Documentation Status Complete : Yes FAISAL PONCE Rn-Tow Mate - 09/21/2020 14:39 EDT Discharge Needs II Professional Skilled Services : Professional Skilled Services No qualifying data available. Needs Assistance with Transportation : No Discharge Options Discussed with Patient : Discharge transportation, DME FAISAL PONCE Rn-Tow Mate - 09/21/2020 14:39 EDT Narrative Note Narrative Note : Admission Melena/GI bleed; MRR; BOOST 4 Hx Hypertension, GERD, Anemia, Hiatal Hernia RA; IV Pantoprazole - EGD planned today Met pt - awake/alert in bed; daughter Phyllis @ bedside. Pt lives alone; PLOF independent, drives, no hx of home health or short-term rehab. Pt states she has an AD - son Christiano White (foreclosure field inspector) is 1st HCS and dtr Phyllis Darline is 2d - pt's daughter will plan to bring copy to the hospital. FAISAL PONCE Rn-Tow Mate - 09/21/2020 14:39 EDT documented in this encounter Plan of Treatment Not on file documented as of this encounter Visit Diagnoses Not on filedocumented in this encounter
--- OUTSIDE RECORDS SUMMARY | 2025-02-25 06:52 | XMS_ITS | Encounter Summary ---
Author Organization [employer] ([place], [place], [place], [place], [place]) Address [address] [place] [address] Care Team Providers Care Avionics Systems Engineer Name Role Phone Unavailable Primary Care Provider Unavailabl e Encounter Details Date Type Department Care Team (Late st Contact Info) Description 09/21/2020 Transcribed Document [facility] [place] [address] [place] [address] ProviderShannan MD [address] [place] [address] Social History Tobacco Use Types [...] - Start Time: 09/21/20 17:13:00 (09/21/20 17:19:54) Electronically signed by Rory Rosado Conversion Paint Roller Cover Machine Setter Cerner at 07/05/2022 11:44 PM CDT documented in this encounter Plan of Treatment Not on file documented as of this encounter Visit Diagnoses Not on filedocumented in this encounter
--- OUTSIDE RECORDS SUMMARY | 2025-02-25 06:52 | XMS_ITS | Encounter Summary ---
Author Organization [employer] ([place], [place], [place], [place], [place]) Address [address] [place] [address] Care Team Providers Care Financial Writer Name Role Phone Unavailable Primary Care Provider Unavailabl e Encounter Details Date Type Department Care Team (Late st Contact Info) Description 09/22/[address] [facility] [place] Family Medicine [address] [place] [address] ProviderShannan MD [address] [place] [address] Social History Tobacco Use Types [...]
--- OUTSIDE RECORDS SUMMARY | 2025-02-25 06:52 | XMS_ITS | Encounter Summary ---
Author Organization [employer] ([place], [place], [place], [place], [place]) Address [address] [place] [address] Care Team Providers Care Industrial Sweeper Cleaner Name Role Phone Unavailable Primary Care Provider Unavailabl e Encounter Details Date Type Department Care Team (Late st Contact Info) Description 09/23/2020 Transcribed Document [facility] Radiology [address] [place] [address] Messi Mcgarry MD [address] [place] [address] [address] [place] [id number] Social History Tobacco Use Types Packs/Day Years [...] MCGARRY MD-INT Subjective Admit information: Tx From: [facility] ER . Source of history: Self, Family member. Present at bedside: Family member. PCP: Dr. Andrea DOA: 09/20/2020 CODE STATUS: Full code Referral source: Emergency department. Chief Complaint 1. Severe weakness 2. Ongoing melena 3. Exertional dyspnea History of Present Illness This is 80-year-[facility]. According to [...] and weak. She went to the [facility] ER where work-up revealed hemoglobin of 7.8 [...] camerons uilcer *Surgeon(s) CAROL MOORE MD-GAE (Surgeon/Proceduralist, [facility]) *Findings Esophagus was normal except [...]
--- OUTSIDE RECORDS SUMMARY | 2025-02-25 06:52 | XMS_ITS | Encounter Summary ---
Author Organization [employer] ([place], [place], [place], [place], [place]) Address [address] [place] [address] Care Team Providers Care Sprinkler Truck Driver Name Role Phone Unavailable Primary Care Provider Unavailabl e Encounter Details Date Type Department Care Team (Late st Contact Info) Description 09/23/2020 Transcribed Document [facility] Family Medicine [address] [place] [address] ProviderShannan MD [address] [place] [address] Social History Tobacco Use Types [...] 09/23/2020 5:32 EDT Electronically signed by Alonzo [facility] Conversion Lumber Racker Cerner at 07/05/2022 11:48 PM CDT documented in this encounter Plan of Treatment Not on file documented as of this encounter Visit Diagnoses Not on filedocumented in this encounter
--- OUTSIDE RECORDS SUMMARY | 2025-02-25 06:52 | XMS_ITS | Encounter Summary ---
Author Organization [employer] ([place], [place], [place], [place], [place]) Address [address] [place] [address] Care Team Providers Care Airline Counter Agent Name Role Phone Unavailable Primary Care Provider Unavailabl e Encounter Details Date Type Department Care Team (Late st Contact Info) Description 09/23/2020 Transcribed Document [facility] [place] Family Medicine [address] [place] [address] ProviderShannan MD [address] [place] [address] Social History Tobacco Use Types [...] Spiritual Care Intervention/Comment/Summary Points : Participated in [facility] VERENA JUAREZ - 09/24/2020 15:41 EDT documented in this encounter Plan of Treatment Not on file documented as of this encounter Visit Diagnoses Not on filedocumented in this encounter
--- OUTSIDE RECORDS SUMMARY | 2025-02-25 06:52 | XMS_ITS | Encounter Summary ---
Author Organization [employer] ([place], [place], [place], [place], [place]) Address [address] [place] [address] Care Team Providers Care Drop Wire Operator Name Role Phone Unavailable Primary Care Provider Unavailabl e Encounter Details Date Type Department Care Team (Late st Contact Info) Description 09/21/2020 Transcribed Document [facility] [place] [address] [place] [address] ProviderShannan MD [address] [place] [address] Social History Tobacco Use Types [...] Consultation GIB History of Present Illness Ms. Meade is a 80-year-old female with history of [...] past. EGD with enteroscopy was done at [facility] per patient back in February. She was [...] Lymph # 2.64 x10(3)/uL 09/21/2020 02:49 EDT Gates % 10.3 % (High) 09/21/2020 02:49 EDT Gates # 0.77 K/uL 09/21/2020 02:49 EDT Eos [...] Appearance CLEAR2 09/21/2020 06:30 EDT Urine Specific Mission 1.021 09/21/2020 06:30 EDT Urine pH Dipstick [...] 09/20/2020 18:12 EDT Electronically signed by Alonzo, [facility] Conversion Artificial Intelligence Specialist Cerner at 07/05/2022 11:43 PM CDT documented in this encounter Plan of Treatment Not on file documented as of this encounter Visit Diagnoses Not on filedocumented in this encounter
--- OUTSIDE RECORDS SUMMARY | 2025-02-25 06:52 | XMS_ITS | Encounter Summary ---
Author Organization [employer] ([place], [place], [place], [place], [place]) Address [address] [place] [address] Care Team Providers Care Structural Metal Fabricator Apprentice Name Role Phone Unavailable Primary Care Provider Unavailabl e Encounter Details Date Type Department Care Team (Late st Contact Info) Description 09/21/2020 Transcribed Document [facility] Radiology 1 [place] [address] Messi Mcgarry MD [address] [place] [address] [address] [place] [id number] Social History Tobacco Use Types Packs/Day Years [...] MCGARRY MD-INT Subjective Admit information: Tx From: [facility] ER . Source of history: Self, Family member. Present at bedside: Family member. PCP: Dr. Andrea DOA: 09/20/2020 CODE STATUS: Full code Referral source: Emergency department. Chief Complaint 1. Severe weakness 2. Ongoing melena 3. Exertional dyspnea History of Present Illness This is 80-year-old [facility] above-mentioned [facility]. According to [...] dizzy and weak. She went to the [facility] ER where work-up revealed hemoglobin of [...]
--- OUTSIDE RECORDS SUMMARY | 2025-02-25 06:52 | XMS_ITS | Encounter Summary ---
Author Organization [employer] ([place], [place], [place], [place], [place]) Address [address] [place] [address] Care Team Providers Care Psychologist Research Assistant Name Role Phone Unavailable Primary Care Provider Unavailabl e Encounter Details Date Type Department Care Team (Late st Contact Info) Description 09/21/2020 Transcribed Document [facility] [facility] [place] [address] [place] [address] ProviderShannan MD [address] [place] [address] Social History Tobacco Use Types [...] Historical ProviderMD - 09/21/2020 2:00 AM CDT Commercial Carpet Installer Details Entered On: 09/21/2020 3:46 EDT Performed [...]
--- OUTSIDE RECORDS SUMMARY | 2025-02-25 06:52 | XMS_ITS | Encounter Summary ---
Author Organization [employer] ([place], [place], [place], [place], [place]) Address [address] [place] [address] Care Team Providers Care Gear Setter Name Role Phone Unavailable Primary Care Provider Unavailabl e Encounter Details Date Type Department Care Team (Late st Contact Info) Description 09/22/2020 Transcribed Document [facility] Radiology [address] [place] [address] Messi Mcgarry MD [address] [place] [address] [address] [place] [id number] Social History Tobacco Use Types Packs/Day Years [...] MCGARRY MD-INT Subjective Admit information: Tx From: [facility] ER . Source of history: Self, Family member. Present at bedside: Family member. PCP: Dr. Andrea DOA: 09/20/2020 CODE STATUS: Full code Referral source: Emergency department. Chief Complaint 1. Severe weakness 2. Ongoing melena 3. Exertional dyspnea History of Present Illness This is 80-year-old female presented to the [facility] ER with above-mentioned complaints. According to [...] dizzy and weak. She went to the [facility] ER where work-up revealed hemoglobin of [...] camerons uilcer *Surgeon(s) CAROL MOORE MD-GAE (Surgeon/Proceduralist, [facility]) *Findings Esophagus was normal except for a [...] GI instructions and recommendations. Can move to [facility] bed. Discussed with the patient this morning and she knows the plan. Discussed with the ICU nursing staff. DC planning: Likely tomorrow. documented in this encounter Plan of Treatment Not on file documented as of this encounter Visit Diagnoses Not on filedocumented in this encounter
--- OUTSIDE RECORDS SUMMARY | 2025-02-25 06:52 | XMS_ITS | Encounter Summary ---
Author Organization [employer] ([place], [place], [place], [place], [place]) Address [address] [place] [address] Care Team Providers Care Road Production General Manager Name Role Phone Unavailable Primary Care Provider Unavailabl e Encounter Details Date Type Department Care Team (Late st Contact Info) Description 09/23/2020 Transcribed Document [facility] [place] Family Medicine [address] [place] [address] ProviderShannan MD [address] [place] [address] Social History Tobacco Use Types [...] 11:40 EDT by CHASE MAHER RN - Patient Scheduler Final Discharge Planning Discharge Arrangements : Patient [...] : Yes Discharge To Care Management : Home/Residential/Care Home or Self Care - CHASE MAHER, RN - Patient Scheduler - 09/23/2020 11:40 EDT documented in this encounter Plan of Treatment Not on file documented as of this encounter Visit Diagnoses Not on filedocumented in this encounter
--- OUTSIDE RECORDS SUMMARY | 2025-02-25 06:52 | XMS_ITS | Clinical Summary ---
[facility] Address [address] [place] [address] Care Team Providers Care Lens Engraver Name Role Phone Hawk Davis MD Primary Care Provider [phone] Allergies Active Allergy Reactions Criticality Noted Date [...] Take 1 tablet by mouth Daily. Active oxyCODONE-aceta minophen (PERCOCET) 7.5-325 MG per tabletIndicatio ns:Right middle cerebral artery stroke Take 1 tablet [...] (Two) Times a Day With Meals. Active diphenoxylate-a tropine (LOMOTIL) 2.5-0.025 MG per tablet Take 1 tablet by mouth 2 (Two) Times a Day As Needed for Diarrhea. Active vitamin B-6 (PYRIDOXINE) 50 MG tablet Take 1 tablet by mouth Daily. Active aspirin 81 MG chewable tablet Chew 1 tablet Daily. 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 Not hard at all 01/26/2025 [facility] [place] [facility] - Occupational Stress [...] things needed for daily living? No 01/26/2025 [facility] Utilities Answer Date Recorded In the [...] or training? Not on file Preferred Language Tunisian 01/26/2025 PHQ-2 Answer Date Recorded Patient Health [...] EST RESPIRATORY PANEL PCR W/ COVID-19 (SARS-COV-2), ASSISTANT PROFESSOR OF COMMUNICATION SWAB IN UTM/VTP, 2 HR TAT Routine [...] MD 01/26/2025 2:35 AM EST Workstation ID: [id number] Narrative 01/26/2025 2:35 AM EST MRI BRAIN [...] MD 01/26/2025 2:35 AM EST Workstation ID: [id number] Kristina Whaley MOLD SANDER IMG MRI ORDERABLES Final Result * (ABNORMAL) Hemoglobin A1c (01/25/2025 10:45 AM EST) Hemoglobin A1C 5.76(H) 4.80 - 5.60 % 01/25/2025 11:23 AM EST [facility] Blood Venipuncture / Unknown 01/25/2025 10:45 AM EST 01/25/2025 10:54 AM EST Narrative [facility] - 01/25/2025 11:23 AM EST Hemoglobin A1C Ranges: Increased Risk for Diabetes 5.7% to 6.4% Diabetes >= 6.5% Diabetic Goal < 7.0% Kristina Whaley MOLD SANDER LAB BLOOD ORDERABLES Fin al Result [facility]
[address] [place] [address], * Lipid Panel (01/25/2025 10:45 AM EST) Total Cholesterol 132 0 - 200 mg/dL 01/25/2025 11:24 AM EST [facility] Triglycerides 64 0 - 150 mg/dL 01/25/2025 11:24 AM EST [facility] HDL Cholesterol 60 40 - 60 mg/dL 01/25/2025 11:24 AM EST [facility] LDL Cholesterol 59 0 - 100 mg/dL 01/25/2025 11:24 AM EST [facility] VLDL Cholesterol 13 5 - 40 mg/dL 01/25/2025 11:24 AM EST [facility] LDL/HDL Ratio 0.99 01/25/2025 11:24 AM EST [facility] Blood Venipuncture / Unknown 01/25/2025 10:45 AM EST 01/25/2025 10:54 AM EST Narrative [facility] - 01/25/2025 11:24 AM EST Cholesterol [...] using the NIH LDL-C calculation. Kristina Whaley MOLD SANDER LAB BLOOD ORDERABLES Fin al Result [facility]
[address] [place] [address], * ECHO COMPLETE W/ DOPPLER AND COLOR FLOW (01/24/2025 4:48 PM EST) EF(MOD-bp) 61.1 % LVIDd 4.2 cm LVIDs 2.9 cm IVSd 1.00 cm LVPWd 0.60 cm FS 31.0 % IVS/LVPW 1.67 cm ESV(cubed) 24.4 ml LV Sys Vol (BSA corrected) 12.5 cm2 EDV(cubed) 74.1 ml LV Shleley Vol (BSA corrected) 37.8 cm2 LV mass(C)d [...] is technically adequate for diagnosis. Kristina Whaley MOLD SANDER CV ECHO ORDERABLES Final Result * POC Glucose Once (01/24/2025 4:36 PM EST) Only the most recent of3 resultswithin the time period is included. Pathologist [facility] Glucose 102 70 - 130 mg/dL 01/24/2025 4:39 PM EST [facility] Comment:Serial Number: [id number]: [id number] Blood 01/24/2025 4:36 PM EST 01/24/2025 4:39 PM EST Sreedhar Boss DO POINT OF CARE TEST ORDERA BLES Final Result [facility]
[address] [place] [address], * (ABNORMAL) Urinalysis, Microscopic Only - Urine, Clean Catch (01/24/2025 9:54 AM EST) RBC, UA 21-50(A) None Seen, 0-2 /HPF 01/24/2025 11:02 AM [facility] WBC, UA Too Numerous to Count(A) None Seen, 0-2 /HPF 01/24/2025 11:02 AM [facility] Bacteria, UA 4+(A) None Seen /HPF 01/24/2025 11:02 AM [facility] Squamous Epithelial Cells, UA 0-2 None Seen, 0-2 /HPF 01/24/2025 11:02 AM [facility] Hyaline Casts, UA None Seen None Seen /LPF 01/24/2025 11:02 AM [facility] Methodology Manual Light Microscopy 01/24/2025 11:02 AM [facility] Urine Urine specimen obtained by clean catch procedure / Unknown Collection / Unknown 01/24/2025 9:54 AM EST 01/24/2025 10:27 AM EST Anup Daniel MD URINE ORDERABLES Final Result [facility]
[address] [place] [address], * (ABNORMAL) Urinalysis With Culture If Indicated - Urine, Clean Catch (01/24/2025 9:54 AM EST) Color, UA Yellow Yellow, Straw 01/24/2025 10:35 AM [facility] Appearance, UA Turbid(A) Clear 01/24/2025 10:35 AM [facility] pH, UA 7.0 5.0 - 8.0 01/24/2025 10:35 AM [facility] Specific Ponce, UA 1.010 1.005 - 1.030 01/24/2025 10:35 AM [facility] Glucose, UA Negative Negative 01/24/2025 10:35 AM [facility] Ketones, UA Negative Negative 01/24/2025 10:35 AM [facility] Bilirubin, UA Negative Negative 01/24/2025 10:35 AM EST [facility] Blood, UA Large (3+)(A) Negative 01/24/2025 10:35 AM EST [facility] Protein, UA Negative Negative 01/24/2025 10:35 AM EST [facility] Leuk Esterase, UA Large (3+)(A) Negative 01/24/2025 10:35 AM EST [facility] Nitrite, UA Negative Negative 01/24/2025 10:35 AM EST [facility] Urobilinogen, UA 0.2 E.U./dL 0.2 - 1.0 E.U./dL 01/24/2025 10:35 AM EST [facility] Urine Urine specimen obtained by clean catch procedure / Unknown Collection / Unknown 01/24/2025 9:54 AM EST 01/24/2025 10:27 AM EST [facility] - 01/24/2025 10:35 AM EST In absence of clinical symptoms, the presence of pyuria, bacteria, and/or nitrites on the urinalysis result does not correlate with infection. Anup Daniel MD URINE ORDERABLES Final Result [facility]
[address] [place] [address], * (ABNORMAL) Urine Culture - Urine, Urine, Clean Catch (01/24/2025 9:54 AM EST) Urine Culture >100,000 CFU/mL Escherichia coli(A) CELENA 01/26/2025 9:42 AM EST [facility] Urine Urine specimen obtained by clean catch procedure / Unknown Collection / Unknown 01/24/2025 9:54 AM EST 01/24/2025 10:27 AM EST [facility] - 01/26/2025 9:42 AM EST Colonization [...] MICROBIOLOGY - GENERAL ORDERA BLES Final Result [facility]
[address] [place] [address], * Respiratory Panel PCR w/COVID-19(SARS-CoV-2) CHERI/MAI/LO/PAD/COR/NATA In-House, ASSISTANT PROFESSOR OF COMMUNICATION Swab in UTM/VTM, 2 HR TAT - Swab, Nasopharynx (01/24/2025 8:51 AM EST) Pathologist [facility] ADENOVIRUS, PCR Not Detected Not Detected [facility] 01/24/2025 12:56 PM EST [facility] Coronavirus 229E Not Detected Not Detected [facility] 01/24/2025 12:56 PM EST [facility] Coronavirus HKU1 Not Detected Not Detected [facility] 01/24/2025 12:56 PM EST [facility] Coronavirus NL63 Not Detected Not Detected [facility] 01/24/2025 12:56 PM EST [facility] Coronavirus OC43 Not Detected Not Detected [facility] 01/24/2025 12:56 PM [facility] COVID19 Not Detected Not Detected - Ref. Range [facility] 01/24/2025 12:56 PM [facility] Human Metapneumovirus Not Detected Not Detected [facility] 01/24/2025 12:56 PM [facility] Human Rhinovirus/Enterov irus Not Detected Not Detected [facility] 01/24/2025 12:56 PM [facility] Influenza A PCR Not Detected Not Detected [facility] 01/24/2025 12:56 PM [facility] Influenza B PCR Not Detected Not Detected [facility] 01/24/2025 12:56 PM [facility] Parainfluenza Virus 1 Not Detected Not Detected [facility] 01/24/2025 12:56 PM [facility] Parainfluenza Virus 2 Not Detected Not Detected [facility] 01/24/2025 12:56 PM [facility] Parainfluenza Virus 3 Not Detected Not Detected [facility] 01/24/2025 12:56 PM [facility] Parainfluenza Virus 4 Not Detected Not Detected [facility] 01/24/2025 12:56 PM [facility] RSV, PCR Not Detected Not Detected [facility] 01/24/2025 12:56 PM [facility] Bordetella pertussis pcr Not Detected Not Detected [facility] 01/24/2025 12:56 PM [facility] Bordetella parapertussis PCR Not Detected Not Detected [facility] 01/24/2025 12:56 PM [facility] Chlamydophila pneumoniae PCR Not Detected Not Detected [facility] 01/24/2025 12:56 PM [facility] Mycoplasma pneumo by PCR Not Detected Not Detected [facility] 01/24/2025 12:56 PM [facility] Swab Nasopharyngeal structure / Unknown Collection / Unknown 01/24/2025 8:51 AM EST 01/24/2025 11:32 AM EST Narrative [facility] - 01/24/2025 12:56 PM EST In [...] ORDERA BLES Final Result Performing Organization Address [facility] de Phone Number [facility]
[address] [place] [address], * Telemetry Scan (01/24/2025 7:33 AM EST) [facility] ECG ORDERABLES Final Result * TSH (01/24/2025 6:17 AM EST) TSH 0.293 0.270 - 4.200 uIU/mL 01/24/2025 7:32 AM EST [facility] Blood Venipuncture / Unknown 01/24/2025 6:17 AM EST 01/24/2025 6:57 AM EST Anup Daniel MD LAB BLOOD ORDERABLES Final Re sult Performing Organization Address City/[facility]/ZIP Co de Phone Number [facility]
[address] [place] [address], * Magnesium (01/24/2025 6:17 AM EST) Magnesium 2.3 1.6 - 2.4 mg/dL 01/24/2025 7:32 AM EST [facility] Blood Venipuncture / Unknown 01/24/2025 6:17 AM EST 01/24/2025 6:57 AM EST us Anup Daniel MD LAB BLOOD ORDERABLES Final Re sult [facility]
[address] [place] [address], [place] [phone] * (ABNORMAL) Comprehensive Metabolic Panel (01/24/2025 6:17 AM EST) [facility] Glucose 93 65 - 99 mg/dL 01/24/2025 7:32 AM [facility] BUN 9.5 8.0 - 23.0 mg/dL 01/24/2025 7:32 AM [facility] Creatinine 0.60 0.57 - 1.00 mg/dL 01/24/2025 7:32 AM [facility] Sodium 143 136 - 145 mmol/L 01/24/2025 7:32 AM [facility] Potassium 3.7 3.5 - 5.2 mmol/L 01/24/2025 7:32 AM [facility] Chloride 108(H) 98 - 107 mmol/L 01/24/2025 7:32 AM [facility] CO2 24.3 22.0 - 29.0 mmol/L 01/24/2025 7:32 AM [facility] Calcium 8.6 8.6 - 10.5 mg/dL 01/24/2025 7:32 AM [facility] Total Protein 7.0 6.0 - 8.5 g/dL 01/24/2025 7:32 AM [facility] Albumin 4.4 3.5 - 5.2 g/dL 01/24/2025 7:32 AM [facility] ALT (SGPT) 20 1 - 33 U/L 01/24/2025 7:32 AM [facility] AST (SGOT) 19 1 - 32 U/L 01/24/2025 7:32 AM [facility] Alkaline Phosphatase 91 39 - 117 U/L 01/24/2025 7:32 AM [facility] Total Bilirubin 0.3 0.0 - 1.2 mg/dL 01/24/2025 7:32 AM [facility] Globulin 2.6 gm/dL 01/24/2025 7:32 AM [facility] Comment:Calculated Result A/G Ratio 1.7 g/dL 01/24/2025 7:32 AM [facility] BUN/Creatinine Ratio 15.8 7.0 - 25.0 01/24/2025 7:32 AM [facility] Anion Gap 10.7 5.0 - 15.0 mmol/L 01/24/2025 7:32 AM [facility] eGFR 89.7 >60.0 mL/min/1.7 3 01/24/2025 7:32 AM [facility] Blood Venipuncture / Unknown 01/24/2025 6:17 AM EST 01/24/2025 6:57 AM EST [facility] - 01/24/2025 7:32 AM [...] MD LAB BLOOD ORDERABLES Final Re sult [facility]
[address] [place] [address], * (ABNORMAL) CBC (No Diff) (01/24/2025 6:16 AM EST) WBC 10.37 3.40 - 10.80 10*3/mm3 01/24/2025 7:09 AM [facility] RBC 4.03 3.77 - 5.28 10*6/mm3 01/24/2025 7:09 AM [facility] Hemoglobin 13.7 12.0 - 15.9 g/dL 01/24/2025 7:09 AM [facility] Hematocrit 41.6 34.0 - 46.6 % 01/24/2025 7:09 AM [facility] MCV 103.2(H) 79.0 - 97.0 fL 01/24/2025 7:09 AM [facility] MCH 34.0(H) 26.6 - 33.0 pg 01/24/2025 7:09 AM [facility] MCHC 32.9 31.5 - 35.7 g/dL 01/24/2025 7:09 AM [facility] RDW 11.9(L) 12.3 - 15.4 % 01/24/2025 7:09 AM [facility] RDW-SD 45.7 37.0 - 54.0 fl 01/24/2025 7:09 AM [facility] MPV 10.8 6.0 - 12.0 fL 01/24/2025 7:09 AM [facility] Platelets 157 140 - 450 10*3/mm3 01/24/2025 7:09 AM [facility] Blood Venipuncture / Unknown 01/24/2025 6:16 AM EST 01/24/2025 6:58 AM EST us Anup Daniel MD LAB BLOOD ORDERABLES Final Re sult [facility]
[address] [place] [address], * ECG 12 Lead QT Measurement (01/24/2025 6:07 AM EST) Pathologist [facility] QT Interval 408 ms ECG QTC Interval 461 ms ECG 01/24/2025 6:07 AM EST 01/26/2025 8:01 PM EST Narrative ECG - 01/26/2025 8:01 PM EST Test [...] Final Result ECG * ECG Scan (01/23/2025) [facility] Onbase ECG ORDERABLES Final Result * IMAGING SCANNED (01/23/2025) Only the most recent of4 resultswithin the time period is included. Anatomical Region Laterality Modality Radiographic Guera ging [facility] On[facility] IMG DIAGNOSTIC IMAGING ORDERA BLES Final Result * LABS SCANNED (01/23/2025) [facility] LAB BLOOD ORDERABLES Final Re sult from Last 3 Months Insurance MEDICARE A & B Member Subscriber Plan / Payer (Ef fective 2007-Present) Name:Lucille Campuzano Member ID:[id number] Relation to Subscriber:Self Name:Lucille Campuzano Subscriber ID:[id number] Payer ID:[id number] Group ID:Not on file Type:Not on file Address: [id number] HEALTH CARE OPTIONS Advance Directives * [...] Of Support Discussed With: Patient Care Teams Lens Engraver Relationship Specialty Start Date End Date Hawk Davis MD [address] [facility] [address] [facility] [address] [place] [address] PCP - General Adolescent Medicine 12/20/20
--- OUTSIDE RECORDS SUMMARY | 2025-02-25 06:52 | XMS_ITS | Encounter Summary ---
Author Organization [employer] ([place], [place], [place], [place], [place]) Address [address] [place] [address] Care Team Providers Care Boat Carpenter Mechanic Name Role Phone Unavailable Primary Care Provider Unavailabl e Encounter Details Date Type Department Care Team (Late st Contact Info) Description 09/22/2020 Transcribed Document [facility] [place] Family Medicine [address] [place] [address] ProviderShannan MD [address] [place] [address] Social History Tobacco Use Types [...] Historical ProviderMD - 09/22/2020 2:00 AM CDT Landscape Laborer Details Entered On: 09/22/2020 0:23 EDT Performed [...]
--- OUTSIDE RECORDS SUMMARY | 2025-02-25 06:52 | XMS_ITS | Encounter Summary ---
Author Organization [employer] ([place], [place], [place], [place], [place]) Address [address] [place] [address] Care Team Providers Care Automation Driver Name Role Phone Unavailable Primary Care Provider Unavailabl e Encounter Details Date Type Department Care Team (Late st Contact Info) Description 09/23/2020 Transcribed Document [facility] [place] [place] [facility] [address] [place] [address] ProviderShannan MD [address] [place] [address] Social History Tobacco Use Types [...]
--- OUTSIDE RECORDS SUMMARY | 2025-02-25 06:52 | XMS_ITS | Encounter Summary ---
Author Organization [employer] ([place], [place], [place], [place], [place]) Address [address] [place] [address] Care Team Providers Care Copping Machine Operator Name Role Phone Unavailable Primary Care Provider Unavailabl e Encounter Details Date Type Department Care Team (Late st Contact Info) Description 09/23/2020 Transcribed Document [facility] Family Medicine [address] [place] [address] ProviderShannan MD [address] [place] [address] Social History Tobacco Use Types [...] Nugent MD - 09/23/2020 11:37 AM CDT [facility] [place] [address] ABBEY MEADE :1940 Visit Time:09/20/2020 Your [...] Ins Card, Photo ID, Ins Co-pay Where: [address] [place] [address]- Follow Up with CAROL MOORE MD-GAE When Within 2 months Comments Recommended EGD in 2 months. Call office to schedule appointment. Where: [address] [facility] [address] [place] [address]- Medications What How Much When Instructions Next Dose pantoprazole (pantoprazole 40 mg oral delayed release tablet) 1 Tablet(s) Oral Two Times A Day Pickup at [facility] 09/23/2020 PM ALPRAZolam (ALPRAZolam 1 mg oral [...] hours as needed Pharmacy Information [facility] [place] [address] [place] [phone] Take your medications faithfully. Do NOT skip [...] Follow these instructions at home: ??? Take djet-llx-qizcsws and prescription medicines only as told by [...] provider. Document Revised: 02/15/2018 Document Reviewed: 04/06/2017 [employer] Patient Education ?? 2020 [employer]. Peptic Ulcer A peptic ulcer is a [...] help quitting, ask your doctor. ??? Take myiq-yvm-yxukbfe and prescription medicines only as told by [...] provider. Document Revised: 09/10/2018 Document Reviewed: 09/10/2018 [employer] Patient Education ?? 2020 [employer]. Gastritis, Adult Gastritis is swelling (inflammation) of [...] these instructions at home: Medicines ??? Take kocf-vps-ekgmleg and prescription medicines only as told by [...] provider. Document Revised: 07/23/2018 Document Reviewed: 07/23/2018 [employer] Patient Education ?? 2020 [employer]. Hiatal Hernia A hiatal hernia occurs when [...] symptoms. ??? Medicines. These may include: ? Jgii-ylf-ziskfeq antacids. ? Medicines that make your stomach [...] ? Fatty foods, like fried foods. ? Larue fruits, like oranges or lemon. ? Other [...] not drink alcohol. General instructions ??? Take kqqz-dhs-zpbbzcp and prescription medicines only as told by [...] provider. Document Revised: 02/15/2018 Document Reviewed: 10/08/2017 [employer] Patient Education ?? 2020 [employer]. Gastrointestinal Bleeding Gastrointestinal (GI) bleeding is bleeding [...] Follow these instructions at home: ??? Take hcgv-khk-zdwrazv and prescription medicines only as told by [...] provider. Document Revised: 10/16/2018 Document Reviewed: 10/16/2018 [employer] Patient Education ?? 2020 [employer]. pantoprazole (oral/injection) (shaver TOE pra zole) Protonix [...] a broken bone while taking this medicine fci or more than once per day. What [...] may report side effects to FDA at 8-716-QZH-0490. What other drugs will affect pantoprazole? Tell your doctor about all your other medicines, especially: ?? digoxin; ?? methotrexate; or ?? a diuretic or 'water pill.' This list is not complete. Other drugs may affect pantoprazole, including prescription and eefi-sog-cuwlxtb medicines, vitamins, and herbal products. Not all [...] to ensure that the information provided by [employer]. ('[employer]') is accurate, up-to-date, and complete, but no guarantee is made to that effect. Drug information contained herein may be time sensitive. [employer] information has been compiled for use by healthcare practitioners and consumers in the [place] and therefore [employer] does not warrant that uses outside of the [place] are appropriate, unless specifically indicated otherwise. [employer] drug information does not endorse drugs, diagnose patients or recommend therapy. [employer] drug information is an informational resource designed [...] effective or appropriate for any given patient. [employer] does not assume any responsibility for any aspect of healthcare administered with the aid of information [employer] provides. The information contained herein is not intended to cover all possible uses, directions, precautions, warnings, drug interactions, allergic reactions, or adverse effects. If you have questions about the drugs you are taking, check with your doctor, nurse or pharmacist. Copyright 6408-2513 [employer]. Version: 21.. Revision Date: 03/22/2020. Emergency Awareness [...] Assistance with quitting is available by contacting 8-605-LTRDNOW. This is a free resource providing counseling, support, and referral. Or you may contact your personal physician. [place] Suicide Prevention Lifeline: The National Suicide Prevention [...] range between ( 0.0 and 7.0 ) Brule #: 0.47 K/uL -- Normal range between ( 0.16 and 1.00 ) Eos #: 0.08 x10(3)/uL -- Normal range between ( 0.00 and 0.80 ) Brule %: 10.2 % -- Normal range between [...] ) Urine Bilirubin Dipstick: Negative Urine Specific Bailey: 1.021 -- Normal range between ( 1.005 [...] was given the opportunity to ask questions. Patient/Camp Boss Name: Patient/Camp Boss Signature: Relationship to Patient: Clinician/Hospital Camp Boss Signature: Date: documented in this encounter Plan of Treatment Not on file documented as of this encounter Visit Diagnoses Not on filedocumented in this encounter
--- OUTSIDE RECORDS SUMMARY | 2025-02-25 06:52 | XMS_ITS | Encounter Summary ---
Author Organization [employer] ([place], [place], [place], [place], [place]) Address [address] [place] [address] Care Team Providers Care Lunchroom Mother Name Role Phone Unavailable Primary Care Provider Unavailabl e Encounter Details Date Type Department Care Team (Late st Contact Info) Description 09/22/2020 Transcribed Document [facility] [place] [address] ProviderShannan MD [address] [place] [address] Social History Tobacco Use Types [...] On: 09/22/2020 10:49 EDT by FAISAL PONCE Rn-Beef Cattle FarmerPuff Ironer Progress Note Discharge Arrangements : Patient Post-Acute Information Patient Name: ABBEY MEADE Gender: Female : [birth year] Age: 80 Years No Post-Acute Placement(s) Listed No Post-Acute Service(s) Listed No Curaspan Referral(s) Listed Discharge Options Discussed with Patient : Discharge transportation, DME Barriers to Discharge Identified : Clinical Condition of Patient, Follow-Up appointments needed Barriers to Discharge Unresolved : Clinical Condition of Patient FAISAL PONCE, Kendall-Beef Cattle Farmer - 09/22/2020 10:49 EDT Narrative Progress Note Narrative Progress Note : HD#2; POD#2 - EGD/Bx - Oniel erosions - to be placed on PPI; RA; DCP likely home without needs; f/u w/GI in 2 months for repeat EGD; transfer to [facility]. Historical Progress Note : DCP - likely home w/family without needs; f/u with specialists/PCP as recommended. FAISAL PONCE, Rn-Beef Cattle Farmer - 09/21/20 14:43:31 FAISAL PONCE Rn-Beef Cattle Farmer - 09/22/2020 10:49 EDT documented in this encounter Plan of Treatment Not on file documented as of this encounter Visit Diagnoses Not on filedocumented in this encounter
--- OUTSIDE RECORDS SUMMARY | 2025-02-25 06:52 | XMS_ITS | Encounter Summary ---
Author Organization [employer] ([place], [place], [place], [place], [place]) Address [address] [place] [address] Care Team Providers Care Commercial Front Load Operator Name Role Phone Unavailable Primary Care Provider Unavailabl e Encounter Details Date Type Department Care Team (Late st Contact Info) Description 09/21/2020 Transcribed Document [facility] [place] [address] [place] [address] Provider, MD Shannan [address] [place] [address] Social History Tobacco Use Types Packs/Day Years Used Date Smoking Tobacco: Never Assessed Comments Unknown Sex and Gender Information Value Date Recorded Sex Assigned at Not on file Legal Sex Female 7:22 PM CDT Gender Identity Not on file Sexual Orientation Not on file documented as of this encounter Miscellaneous Notes * Cerner Conversion Note - Historical ProviderMD - 09/21/2020 5:13 PM CDT [facility] Endo IntraOp Summary Primary Physician: CAROL MOORE MD-GAE Finalized Date/Time: 09/21/20 17:38:04 Pt. Name: ABBEY MEADE/Sex: 1940 Female Med Rec #: [id number] Physician: GISEL WOLFF MD-INT Financial #: [id number] Pt. Type: I Room/Bed: [facility] Admit/Disch: 09/20/20 17:22:00 - Institution: [facility] Endo - Case Attendance Entry 1 Entry 2 Entry 3 Case Attendee CAROL MOORE MD-GAE Walker, Mary B Rn THOM HALL, Pe Teacher Role Performed Surgeon/Proceduralist, Railroad Track Inspector, First Scrub, First First Time In 09/21/20 [...] Nicole Ramires, MARK SAMANIEGO MD-ANS Role Performed PERSONAL CARER/Nurse Impregnator Anesthesiologist of Record Time In 09/21/20 16:45:00 09/21/20 16:45:00 Time Out 09/21/20 17:25:00 09/21/20 17:25:00 Procedure Esophagogastroduodenosco Esophagogastroduodenosco py, Gastric Biopsy py, Gastric Biopsy Other Attendee Superficial Wound Closed By: Last Modified By: Nicolasa Mon, Nicolasa Daniels Rn 09/21/20 17:25:08 09/21/20 17:38:03 [facility] Endo - Case Attendance Audit 09/21/20 17:38:03 Grain Receiver: [id number] Modifier: [id number] <+> 5 Case Attendee <+> 5 Role Performed <+> 5 Time In <+> 5 Time Out <+> 5 Procedure 09/21/20 17:25:08 Grain Receiver: [id number] Modifier: [id number] <+> Time Out 1 <*> Procedure Esophagogastroduodenoscopy, Gastric Biopsy 2 <+> Time Out 2 <*> Procedure Esophagogastroduodenoscopy, Gastric Biopsy 3 <+> Time Out 3 <*> Procedure Esophagogastroduodenoscopy, Gastric Biopsy 4 <+> Time Out 4 <*> Procedure Esophagogastroduodenoscopy, Gastric Biopsy 09/21/20 17:19:56 Grain Receiver: [id number] Modifier: [id number] <*> Procedure Esophagogastroduodenoscopy 2 <*> Procedure Esophagogastroduodenoscopy 3 <*> Procedure Esophagogastroduodenoscopy 4 <*> Procedure Esophagogastroduodenoscopy 09/21/20 17:07:26 Grain Receiver: [id number] Modifier: [id number] <*> Time In 09/21/20 16:26:00 1 <*> Procedure Esophagogastroduodenoscopy 09/21/20 16:45:46 Grain Receiver: [id number] Modifier: [id number] <+> Time In 1 <*> Procedure Esophagogastroduodenoscopy 2 <*> Procedure Esophagogastroduodenoscopy 3 <*> Procedure Esophagogastroduodenoscopy 4 <*> Case Attendee DELANEY NORTH APRN 4 <*> Time In 09/21/20 16:26:00 4 <*> Procedure Esophagogastroduodenoscopy 09/21/20 16:35:38 Grain Receiver: [id number] Modifier: [id number] <+> 2 Case Attendee <+> 2 Role Performed <+> 2 Time In <+> 2 Procedure <+> 3 Case Attendee <+> 3 Role Performed <+> 3 Time In <+> 3 Procedure <+> 4 Case Attendee <+> 4 Role Performed <+> 4 Time In <+> 4 Procedure [facility] Endo - Case times Entry 1 Patient In Room Time 09/21/20 16:26:00 Out Room Time 09/21/20 17:25:00 Anesthesia Start Time 09/21/20 16:45:00 Stop Time 09/21/20 17:25:00 Surgery / Procedure Times Start Time 09/21/20 17:13:00 Stop Time 09/21/20 17:21:00 Last Modified By: Nicolasa Mon Rn 09/21/20 17:21:06 [facility] Endo - Case times Audit 09/21/20 17:25:07 Grain Receiver: [id number] Modifier: [id number] <+> 1 Out Room Time <+> 1 Stop Time 09/21/20 17:21:06 Grain Receiver: [id number] Modifier: [id number] <+> 1 Stop Time 09/21/20 17:13:35 Grain Receiver: [id number] Modifier: [id number] 1 <*> Start Time 09/21/20 16:45:00 09/21/20 17:07:57 Grain Receiver: [id number] Modifier: [id number] <+> 1 Start Time <+> 1 Start Time [facility] Endo - Cultures and Spec Summary Entry 1 Cultrures and Specimens Specimen Ordered: Yes Test(s) Routine/Path-Lab Requested/Final Disposition Last Modified By: Nicolasa Mon, Kendall 09/21/20 17:20:12 [facility] Endo - General Case Research Project Manager 1 Case Information OR Out of Department [facility] Case Level 1 Room Verified Yes Wound Class II - Clean-Contaminated Specialty Gastroenterology [place]est[place] [facility] [place] 3 Diagnosis Preop Diagnosis Gi BLEED Postop Same As Preop No Postop Diagnosis Hiatal hernia, sundeep erosions, camerons uilcer Last Modified By: Nicolasa Mon Rn 09/21/20 16:36:23 [facility] Endo - General Case Data Audit 09/21/20 17:20:56 Grain Receiver: [id number] Modifier: [id number] <*> Postop Diagnosis Hiatal hernia, sundeep erosions 09/21/20 17:17:55 Grain Receiver: [id number] Modifier: [id number] <+> 1 Postop Diagnosis [facility] Endo - Surgical Procedures Entry 1 Entry 2 Procedure Esophagogastroduodenosco Gastric Biopsy py Modifiers Additional Camerons ulcer biopsy Procedure Description Primary Procedure Yes No Primary Surgeon CAROL MOORE MD-GAE MARTIN, KATHLEEN, MD-GAE Start 09/21/20 17:13:00 09/21/20 17:13:00 Stop 09/21/20 17:21:00 09/21/20 17:21:00 Physician States Cecum Reached Anesthesia Type [facility] Specialty Gastroenterology Gastroenterology Wound Class II - Clean-Contaminated II - Clean-Contaminated Last Modified By: Nicolasa Mon, Rn Nicolasa Mon Rn 09/21/20 16:36:39 09/21/20 17:19:54 [facility] Endo - Surgical Procedures Audit 09/21/20 17:24:26 Grain Receiver: [id number] Modifier: [id number] <+> 1 Stop <+> 2 Stop 09/21/20 17:19:54 Grain Receiver: [id number] Modifier: [id number] <+> 2 Procedure <+> 2 Primary Procedure <+> 2 Primary Surgeon <+> 2 Specialty <+> 2 Start <+> 2 Wound Class <+> 2 Anesthesia Type <+> 2 Additional Procedure Description 09/21/20 17:17:56 Grain Receiver: [id number] Modifier: [id number] <+> 1 Start Case Comments <None> Finalized By: Nicolasa Mon, Rn Document Signatures Signed By: Nicolasa Mon, Rn 09/21/20 17:25 Nicolasa Mon Rn 09/21/20 17:38 Unfinalized History Date/Time Username Reason for Unfinalizing Freetext Reason for Unfinalizing 09/21/20 17:36 [id number] Finish Documentation Electronically signed by Alonzo [facility] Conversion Code Inspector Cerner at 07/05/2022 11:54 PM CDT documented in this encounter Plan of Treatment Not on file documented as of this encounter Visit Diagnoses Not on filedocumented in this encounter
--- OUTSIDE RECORDS SUMMARY | 2025-02-25 06:52 | XMS_ITS | Clinical Summary ---
Author Organization [facility] Address [address] [place] [address] Care Team Providers Care Beater Boss Name Role Phone Hawk Davis MD Primary Care Provider [phone] Allergies Active Allergy Reactions Criticality Noted Date [...] 2 Active Calcium Carbonate-Vit D-Min (Calcium 1200) 2397-9599 MG-UNIT chewable tablet Chew 1 each 1 [...] 2 - PCV20 or PCV21) 10/31/2018 10/31/2017 [id number] Vaccine (4 - season) 2024 01/20/2021, 05/19/2020, [...] this topic Medical Devices Implanted Type Area Dye Operator Device Identifier Shelf Expiration Date Model / Serial / Lot Mesh Bio A 7cm X 10cm - [id number] - [id number] Implanted:Qty: 1 on 07/05/2021 by Anup Ward MD at [facility] Mesh N/A: Abdomen [employer]-[id number] 4 03/07/2024 [id number] / [id number] / Insurance [facility] Member Subscriber Plan / Payer (Ef fective 2021-Present) Name:Lucille Campuzano Relation to Subscriber:Self Name:Lucille Campuzano Payer ID:Not on file Group ID:Not on file Type:Not on file Address: [address] [address] MEDICARE Advance Directives * Full Code (Latest Code Status on File) Date Activated Date Inactivated Comments 07/05/2021 5:28 PM 07/06/2021 8:26 PM Question Answer Comments Patient has decision-making capacity? Yes Care Teams Beater Boss Relationship Specialty Start Date End Date Hawk Davis MD [address] [place] [address] [place] [address] PCP - General 07/30/20
--- OUTSIDE RECORDS SUMMARY | 2025-02-25 06:53 | XMS_ITS | Encounter Summary ---
Author Organization [employer] ([place], [place], [place], [place], [place]) Address [address] [place] [address] Care Team Providers Care Technical Support Intern Name Role Phone Unavailable Primary Care Provider Unavailabl e Encounter Details Date Type Department Care Team (Late st Contact Info) Description 09/23/2020 Transcribed Document [facility] [place] [address] [place] [address] ProviderShannan MD [address] [place] [address] Social History Tobacco Use Types Packs/Day Years Used Date Smoking Tobacco: Never Assessed Comments Unknown Sex and Gender Information Value Date Recorded Sex Assigned at Not on file Legal Sex Female 7:22 PM CDT Gender Identity Not on file Sexual Orientation Not on file documented as of this encounter Miscellaneous Notes * Cerner Conversion Note - Shannna Nugent MD - 09/23/2020 10:58 AM CDT [...] help quitting, ask your doctor. ??? Take fwud-bhd-xdtppui and prescription medicines only as told by [...] provider. Document Revised: 09/10/2018 Document Reviewed: 09/10/2018 [employer] Patient Education ? 2020 [employer]. Gastritis, Adult Gastritis is swelling (inflammation) of [...] these instructions at home: Medicines ??? Take raaz-rsp-vpqxxtk and prescription medicines only as told by [...] provider. Document Revised: 07/23/2018 Document Reviewed: 07/23/2018 Neul Patient Education ? 2020 [employer]. Hiatal Hernia A hiatal hernia occurs when [...] symptoms. ??? Medicines. These may include: ? Vxcp-apd-awxpgpb antacids. ? Medicines that make your stomach [...] ? Fatty foods, like fried foods. ? Marcus fruits, like oranges or lemon. ? Other [...] not drink alcohol. General instructions ??? Take dzec-xgj-ccbzprs and prescription medicines only as told by [...] provider. Document Revised: 02/15/2018 Document Reviewed: 10/08/2017 Neul Patient Education ? 2020 [employer]. Gastrointestinal Bleeding Gastrointestinal (GI) bleeding is bleeding [...] Follow these instructions at home: ??? Take zazz-tfi-elhjlal and prescription medicines only as told by [...] provider. Document Revised: 10/16/2018 Document Reviewed: 10/16/2018 Neul Patient Education ? 2020 [employer]. Hematology Anemia Anemia is a condition in [...] Follow these instructions at home: ??? Take wann-ixj-welendq and prescription medicines only as told by [...] provider. Document Revised: 02/15/2018 Document Reviewed: 04/06/2017 [employer] Patient Education ? 2020 [employer] documented in this encounter Plan of Treatment Not on file documented as of this encounter Visit Diagnoses Not on filedocumented in this encounter
--- OUTSIDE RECORDS SUMMARY | 2025-02-25 06:53 | XMS_ITS | Encounter Summary ---
Author Organization [employer] ([place], [place], [place], [place], [place]) Address [address] [place] [address] Care Team Providers Care Vice President Of Consulting Services Name Role Phone Unavailable Primary Care Provider Unavailabl e Encounter Details Date Type Department Care Team (Late st Contact Info) Description 09/23/2020 Transcribed Document [facility] Radiology [address] [place] [address] Messi Mcgarry MD [address] [place] [address] [address] [place] [id number] Social History Tobacco Use Types Packs/Day Years [...] MCGARRY MD-INT Subjective Admit information: Tx From: [facility] ER . Source of history: Self, Family member. Present at bedside: Family member. PCP: Dr. Andrea DOA: 09/20/2020 DOD: 09/23/2020 CODE STATUS: Full code Referral source: Emergency department. Chief Complaint 1. Severe weakness 2. Ongoing melena 3. Exertional dyspnea History of Present Illness This is 80-year-old female presented to the [facility] ER with above-mentioned complaints. According to [...] dizzy and weak. She went to the [facility] ER where work-up revealed hemoglobin [...] *Surgeon(s) CAROL MOORE MD-GAE (Surgeon/Proceduralist, [facility]) *Findings Esophagus was normal except [...]
--- OUTSIDE RECORDS SUMMARY | 2025-02-25 06:54 | XMS_ITS | Referral Summary ---
Author Organization [employer] ([place], [place], [place], [place], [place]) Address [address] [place] [address] Care Team Providers Care Custodial Manager Name Role Phone Unavailable Primary Care [...]
--- OUTSIDE RECORDS SUMMARY | 2025-02-25 06:54 | XMS_ITS | Encounter Summary ---
Author Organization [employer] ([place], [place], [place], [place], [place]) Address [address] [place] [address] Care Team Providers Care Director Chemistry Name Role Phone Unavailable Primary Care Provider Unavailabl e Encounter Details Date Type Department Care Team (Late st Contact Info) Description 09/20/2020 Transcribed Document [facility] [place] [address] [place] [address] ProviderShannan MD [address] [place] [address] Social History Tobacco Use Types [...]
--- OUTSIDE RECORDS SUMMARY | 2025-02-25 06:54 | XMS_ITS | Clinical Summary ---
Author Organization [employer] ([place], [place], [place], [place], [place]) Address [address] [place] [address] Care Team Providers Care Word Processor Name Role Phone Unavailable Primary Care Provider [...]
--- OUTSIDE RECORDS SUMMARY | 2025-02-25 06:54 | XMS_ITS | Encounter Summary ---
Author Organization [employer] ([place], [place], [place], [place], [place]) Address [address] [place] [address] Care Team Providers Care Learning Support Teacher Name Role Phone Unavailable Primary Care Provider Unavailabl e Encounter Details Date Type Department Care Team (Late st Contact Info) Description 09/21/2020 Transcribed Document [facility] [place] Medicine [address] [place] [address] ProviderShannan MD [address] [place], [place] [id number] Social History Tobacco Use Types Packs/Day Years [...] Insurance 1 Health Plan: MEDICARE Policy Number: [id number] Authorization Number: Insurance 2 Health Plan: AARP N Policy Number: [id number] Authorization Number: Insurance Primary Name : MEDICARE Policy Number: [id number] Authorized Service Begin Date-Primary : 09/20/2020 EDT Historical Authorization Comments-Primary : No Authorization Comments Found KARISSA NUNEZ RN-Utilization Review - 09/21/2020 11:01 EDT documented in this encounter Plan of Treatment Not on file documented as of this encounter Visit Diagnoses Not on filedocumented in this encounter
--- OUTSIDE RECORDS SUMMARY | 2025-02-25 06:54 | XMS_ITS | Encounter Summary ---
Author Organization [employer] ([place], [place], [place], [place], [place]) Address [address] [place] [address] Care Team Providers Care Matcher Leather Parts Name Role Phone Unavailable Primary Care Provider Unavailabl e Encounter Details Date Type Department Care Team (Late st Contact Info) Description 09/20/2020 Transcribed Document [facility] [place] Family Medicine [address] [place] [address] ProviderShannan MD [address] [place] [address] Social History Tobacco Use Types [...] 09/20/2020 18:39 EDT Electronically signed by [facility] Conversion Hydramatic Specialist Cerner at 07/05/2022 11:37 PM CDT documented in this encounter Plan of Treatment Not on file documented as of this encounter Visit Diagnoses Not on filedocumented in this encounter
--- OUTSIDE RECORDS SUMMARY | 2025-02-25 06:54 | XMS_ITS | Clinical Summary ---
Author Organization [employer] Address [address] [place] [address] Phone Care Team Providers Care Salvage Supervisor Name Role Phone Hawk Davis MD Primary Care Provider [phone] Allergies Active Allergy Reactions Criticality Noted Date Comments Haloperidol Lactate Other (See Comments) 2013 Facial distortion Medications simvastatin (ZOCOR) 20 mg tablet Take 40 mg by mouth nightly. Active aspirin 81 mg tablet Take 81 mg by mouth daily. Active omeprazole (PRILOSEC) 20 mg Take by mouth 2 times daily. Active rizatriptan (MAXALT-CURTAIN STITCHER) 10 mg disintegrating tablet Take 10 mg [...] INTRAOCULAR LENS; Surgeon: Evan López MD; Location: [facility]; Service: Ophthalmology Medical devices from this surgery are in the Medical Devices section. CATARACT REMOVAL 07/23/2013 Eye/Left LEFT EYE CATARACT EXTRACTION WITH PHACOEMULSIFICATION AND INTRAOCULAR LENS; Surgeon: Evan López MD; Location: [facility]; Service: Ophthalmology Medical devices from this surgery [...] this topic Medical Devices Implanted Type Area Mesh Cutter Device Identifier Shelf Expiration Date Model / Serial / Lot Lens Intraocular 19.0 Diopter Acrysof Iq 13.0mm Length 6.0mm - [id number] Implanted:Qty: 1 on 07/09/2013 by Evan López MD at [facility] Right: Eye [facility]:SURG 04/19/2018 [id number]. 0 / [id number] / Lens Intraocular 19.0 Diopter Acrysof Iq 13.0mm Length 6.0mm - [id number] Implanted:Qty: 1 on 07/23/2013 by Evan López MD at [facility] Left: Eye [facility]:SURG 02/16/2018 [id number]-12. 0 / [id number] / Insurance MEDICARE [place] PART A [place] B SUPPLE[place]AL MEDICARE [place] PART A AND B SUPPLE[place]AL Advance Directives For more information, please contact: [phone] Documents on File Type Date Recorded Patient Property Master Expl anation Advance Directives/DNR 05/19/2011 8:39 AM Care Teams Salvage Supervisor Relationship Specialty Start Date End Date Hawk Davis MD [address] [place] [address] PCP - General Internal Medicine-Adolescent Medicine 07/01/13
--- OUTSIDE RECORDS SUMMARY | 2025-02-25 06:54 | XMS_ITS | Encounter Summary ---
Author Organization [employer] ([place], [place], [place], [place], [place]) Address [address] [place] [address] Care Team Providers Care Flue Tile Press Operator Name Role Phone Unavailable Primary Care Provider Unavailabl e Encounter Details Date Type Department Care Team (Late st Contact Info) Description 09/20/2020 Transcribed Document [facility] Radiology [address] [place] [address] [place] [address] [place] [address] [address] [place] [id number] Social History Tobacco Use Types Packs/Day Years [...] MD-INT Basic Information Admit information: Tx From: [facility] ER . Source of history: Self, Family member. Present at bedside: Family member. PCP: Dr. Andrea DOFadi: 09/20/2020 CODE STATUS: Full code Referral source: Emergency department. Chief Complaint 1. Severe weakness 2. Ongoing melena 3. Exertional dyspnea History of Present Illness This is 80-year-old female presented to the [facility] ER with above-mentioned complaints. According to [...] dizzy and weak. She went to the [facility] ER where work-up revealed hemoglobin of [...]
--- OUTSIDE RECORDS SUMMARY | 2025-02-25 06:54 | XMS_ITS | Encounter Summary ---
Author Organization [employer] ([place], [place], [place], [place], [place]) Address [address] [place] [address] Care Team Providers Care Synthetic Cloth Binding Cutter Name Role Phone Unavailable Primary Care Provider Unavailabl e Encounter Details Date Type Department Care Team (Late st Contact Info) Description 09/21/2020 Transcribed Document [facility] [place] [address] [place] [address] ProviderShannan MD [address] [place] [address] Social History Tobacco Use Types [...] Source : Estimated Height Entry Format : Sarpy Height, Feet : 5 ft Height, Inches [...]
--- OUTSIDE RECORDS SUMMARY | 2025-02-25 06:54 | XMS_ITS | Encounter Summary ---
Author Organization [employer] ([place], [place], [place], [place], [place]) Address [address] [place] [address] Care Team Providers Care News Technical Director Name Role Phone Unavailable Primary Care Provider Unavailabl e Encounter Details Date Type Department Care Team (Late st Contact Info) Description 09/20/2020 Transcribed Document [facility] [place] [address] [place] [address] ProviderShannan MD [address] [place] [address] Social History Tobacco Use Types [...] the text rendition version of the form. Electronically signed by Rory Rosado Conversion Business Banking Sales Assistant Cerner at 07/07/2022 11:51 AM CDT documented in this encounter Plan of Treatment Not on file documented as of this encounter Visit Diagnoses Not on filedocumented in this encounter
--- OUTSIDE RECORDS SUMMARY | 2025-02-25 06:54 | XMS_ITS | Encounter Summary ---
Author Organization [employer] ([place], [place], [place], [place], [place]) Address [address] [place] [address] Care Team Providers Care Flex O Writer Operator Name Role Phone Unavailable Primary Care Provider Unavailabl e Encounter Details Date Type Department Care Team (Late st Contact Info) Description 09/21/2020 Transcribed Document [facility] [place] Family Medicine [address] [place] [address] ProviderShannan MD [address] [place] [address] Social History Tobacco Use Types [...] On: 09/21/2020 14:43 EDT by FAISAL PONCE Rn-Magnetic ObserverPaper Cone Maker Progress Note Discharge Arrangements : Patient Post-Acute Information Patient Name: ABBEY MEADE Gender: Female : 44 Age: 80 Years No Post-Acute Placement(s) Listed No Post-Acute Service(s) Listed No Curaspan Referral(s) Listed Discharge Options Discussed with Patient : Discharge transportation, DME Barriers to Discharge Identified : Clinical Condition of Patient, Follow-Up appointments needed Barriers to Discharge Unresolved : Clinical Condition of Patient FAISAL PONCE, Kendall-Magnetic Observer - 09/21/2020 14:43 EDT Narrative Progress Note Narrative Progress Note : DCP - likely home w/family without needs; f/u with specialists/PCP as recommended. FAISAL PNOCE, Rn-Magnetic Observer - 09/21/2020 14:43 EDT documented in this encounter Plan of Treatment Not on file documented as of this encounter Visit Diagnoses Not on filedocumented in this encounter
--- OUTSIDE RECORDS SUMMARY | 2025-02-25 06:54 | XMS_ITS | Encounter Summary ---
Author Organization [employer] ([place], [place], [place], [place], [place]) Address [address] [place] [address] Care Team Providers Care Land Acquisition Specialist Name Role Phone Unavailable Primary Care Provider Unavailabl e Encounter Details Date Type Department Care Team (Late st Contact Info) Description 09/20/2020 Transcribed Document [facility] [place] [address] [place] [address] ProviderShannan MD [address] [place] [address] Social History Tobacco Use Types [...] : Living will, Medical durable power of title attorney (proxy) Copy Advance Directive Verified/on Chart : No Ruma Fish Rn - 09/20/2020 18:14 EDT Anesthesia/Transfusion History Family History of Anesthesia Reaction : Prior transfusion without reaction Blood Transfusion Acceptable to Patient : Yes Transfusion History : Prior anesthesia without reaction Family History of Anesthesia Reaction : None Ruma Fish Rn - 09/20/2020 18:14 EDT Functional Assessment [...] #2 Relationship : Daughter Primary Language : [place] Citizen Communication Barrier : None Hand Buffer Needed : No Ruma Fish Rn - [...] Level : 46 or > High Risk [place] Fall Interventions : Adequate lighting, Bed in [...] Source : Estimated Height Entry Format : Winkler Height, Feet : 5 ft(Converted to: 152 [...] Body Mass Index : 26.9 kg/m2 (HI) [place] Body Weight : 61 kg Ruma Fish Rn - 09/20/2020 18:14 EDT Infectious Disease History Has the patient ever been tested for COVID-19? : Yes, Patient stated results Negative Where was the COVID-19 Testing completed? : [facility] ED Where are the test results? : [...] Ruma Fish Rn - 09/20/2020 18:14 EDT [place] Suicide Severity Rating Scale (C-SSRS) CSSRS Past [...] Ruma Fish Rn - 09/20/2020 18:14 EDT documented in this encounter Plan of Treatment Not on file documented as of this encounter Visit Diagnoses Not on filedocumented in this encounter
--- OUTSIDE RECORDS SUMMARY | 2025-02-25 06:54 | XMS_ITS | Encounter Summary ---
Author Organization [employer] ([place], [place], [place], [place], [place]) Address [address] [place] [address] Care Team Providers Care Inpatient Coder Name Role Phone Unavailable Primary Care Provider Unavailabl e Encounter Details Date Type Department Care Team (Late st Contact Info) Description 09/20/2020 Transcribed Document [facility] [place] Medicine [address] [place] [address] ProviderShannan MD [address] [place] [address] Social History Tobacco Use Types [...] - 09/20/2020 18:11 EDT Electronically signed by Alozno, [facility] Conversion Solution Coordinator Cerner at 07/05/2022 11:49 PM CDT documented in this encounter Plan of Treatment Not on file documented as of this encounter Visit Diagnoses Not on filedocumented in this encounter
--- OUTSIDE RECORDS SUMMARY | 2025-02-25 06:54 | XMS_ITS | Encounter Summary ---
Author Organization [facility] Address [address] [place] [address] Care Team Providers Care Propellant Charge Loader Name Role Phone Hawk Davis MD Primary Care Provider [phone] Encounter Details Date Type Department Care Team (Late st Contact Info) Description 05/10/2021 Orders Only External Location [address] [place] [address] Lani Meyer PA [address] [facility] [address] [place] [address] Social History Tobacco Use Types Packs/Day Years [...] on filedocumented in this encounter Care Teams Propellant Charge Loader Relationship Specialty Start Date End Date Hawk Davis MD [address] [place] [address] [place] [address] PCP - General 07/30/20 documented as of this encounter
--- OUTSIDE RECORDS SUMMARY | 2025-02-25 06:54 | XMS_ITS | Encounter Summary ---
Author Organization [employer] ([place], [place], [place], [place], [place]) Address [address] [place] [address] Care Team Providers Care Silk Hanger Name Role Phone Unavailable Primary Care Provider Unavailabl e Encounter Details Date Type Department Care Team (Late st Contact Info) Description 09/23/2020 Transcribed Document [facility] [place] Family Medicine [address] [place] [address] ProviderShannan MD [address] [place] [address] Social History Tobacco Use Types [...] Historical ProviderMD - 09/23/2020 2:00 AM CDT Supervisor Travel Trailer Details Entered On: 09/23/2020 5:32 EDT Performed On: 09/23/2020 2:00 EDT by Yeu Fuentes RN Order Details Transport Mode Order [...] - 09/23/2020 5:32 EDT Electronically signed by Rory Rosado Conversion [employer] Financial Developer Susanner at 07/05/2022 11:56 PM CDT documented in this encounter Plan of Treatment Not on file documented as of this encounter Visit Diagnoses Not on filedocumented in this encounter
--- OUTSIDE RECORDS SUMMARY | 2025-02-25 06:54 | XMS_ITS | Clinical Summary ---
Author Organization [facility] Address [address] [place] [id number] Care Team Providers Care Registered Health Nurse Name Role Phone Taye Castillo DO Unavailable [...] (#1) 2024 Insurance MEDICARE [employer] Care Teams Registered Health Nurse Relationship Specialty Start Date End Date Hawk Davis MD [address] [place] [id number] PCP - General Internal Medicine 08/16/22 Taye Castillo DO [address] [place] [address] Endocrinology/Diabetes/Met abolism 12/12/21
== END 2025-02-25 23:59 | disposition home or self-care (01) ==
LOC: RAD 06:49
PROVIDERS: PCP Internal Medicine Adolescent Medicine; Visit Provider Internal Medicine Adolescent Medicine
DX: J90 Pleural effusion, not elsewhere classified (principal); R22.2 Localized swelling, mass and lump, trunk
CPT/HCPCS: 71250